=== PATIENT | female | born 1950 | race Caucasian/White ===

== ENCOUNTER → 2017-10-17 15:53 | Outpatient (CLI) | payer MEDICARE, OTHER, SELFPAY ==
[2017-10-17 17:32] LABS: Absolute Lymphocyte Count 3.16 X10^3/ul (0.83-4.51); Absolute Neutrophil Count 3.9 X10^3/uL (2.0-7.7); Basophil# 0.03 X10^3/uL; Basophil% 0.4 % (0-1); Eosinophils% 2.6 % (0-5); Hematocrit 40.7 % (37-47); Hemoglobin 13.4 g/dl (12.0-15.0); Lymphocyte # 3.16 X10^3/ul (4.0); Lymphocyte % 40.5 % (19-41); Mean Corp Hgb Conc 32.9 g/gl (32-36); Mean Corpuscular Hgb 30.2 pg (27.0-32.0); Mean Corpuscular Volume 91.9 fL (81-99); Mean Platelet Vol. 9.1 fl (6.2-12.0); Monocyte# 0.52 X10^3/uL; Monocyte% 6.7 % (0-10); Neutrophil % 49.8 % (47-70); Platelet Count 178 K/mm3 (150-450); RBC Distribution Width CV 13.5 % (11.6-14.6); RBC Distribution Width SD 44.9 fl (35.1-43.9); Red Blood Count 4.43 M/mm3 (4.2-5.4); White Blood Count 7.8 K/mm3 (4.4-11.0)
[2017-10-17 17:36] LABS: POSITIVE COUNT NO; POSITIVE DIFFERENTIAL NO; POSITIVE MORPHOLOGY NO
[2017-10-17 17:53] LABS: Vitamin D,25 Hydroxy 21.9 ng/mL (29.95-100.01)
[2017-10-17 18:00] LABS: ALB/GLOB Ratio 1.1 RATIO (0.9-2.4); AST(SGOT) 20 U/L (15-37); Alanine Aminotransfer ALT/SGPT 29 U/L (13-56); Albumin, Serum 3.9 g/dL (3.2-5.0); Alkaline Phosphatase 86 U/L (45-117); Anion Gap 6 (5-15); BUN 16 mg/dL (7-18); BUN/Creat Ratio 13.8 RATIO (10-20); Calcium,Total 9.6 mg/dL (8.5-10.1); Chloride 106 mmol/L (98-107); Creatinine, Serum 1.16 mg/dL (0.55-1.02); EST Glomerular Filtration Rate 49 mL/min (>60); Est Glom Filt Rate - Afr Amer 60 mL/min (>60); Globulin 3.7 g/dL (2.2-4.2); Glucose 81 mg/dL (74-106); Potassium 4.3 mmol/L (3.5-5.1); Protein, Total 7.6 g/dL (6.4-8.2); Sodium Level 140 mmol/L (136-145); Thyroid Stim Hormone (TSH) 1.06 uIU/mL (0.358-3.74)
== END ==
PROVIDERS: Family Provider Family Medicine Geriatric Medicine; PCP Family Medicine Geriatric Medicine; Visit Provider Family Medicine Geriatric Medicine
DX: E11.9 Type 2 diabetes mellitus without complications (principal); E55.9 Vitamin D deficiency, unspecified; I10 Essential (primary) hypertension
CPT/HCPCS: 36415; 80053; 82306; 84443; 85025

== ENCOUNTER → 2018-01-16 13:04 | Outpatient (CLI) | payer MEDICARE, OTHER, SELFPAY | PROVIDERS: Family Provider Family Medicine Geriatric Medicine; PCP Family Medicine Geriatric Medicine; Visit Provider Family Medicine Geriatric Medicine | DX: R10.9 Unspecified abdominal pain (principal) | CPT/HCPCS: 74019 ==

== ENCOUNTER → 2018-02-01 12:39 | Outpatient (CLI) | payer MEDICARE, OTHER, SELFPAY | PROVIDERS: Family Provider Family Medicine Geriatric Medicine; PCP Family Medicine Geriatric Medicine; Visit Provider Family Medicine Geriatric Medicine | DX: R68.83 Chills (without fever) (principal) | CPT/HCPCS: 87633 ==

== ENCOUNTER → 2018-04-16 13:49 | Outpatient (CLI) | payer MEDICARE, OTHER, SELFPAY ==
[2018-04-15 14:11] VITALS: BMI 30.7
[2018-04-16 17:18] LABS: Absolute Lymphocyte Count 3.35 X10^3/ul (0.83-4.51); Absolute Neutrophil Count 5.8 X10^3/uL (2.0-7.7); Basophil# 0.03 X10^3/uL; Basophil% 0.3 % (0-1); Eosinophil# 0.14 X10^3/uL; Eosinophils% 1.4 % (0-5); Hematocrit 42.7 % (37-47); Hemoglobin 14.1 g/dl (12.0-15.0); Lymphocyte # 3.35 X10^3/ul (4.0); Lymphocyte % 33.5 % (19-41); Mean Corpuscular Hgb 31.5 pg (27.0-32.0); Mean Corpuscular Volume 95.3 fL (81-99); Mean Platelet Vol. 9.4 fl (6.2-12.0); Monocyte# 0.63 X10^3/uL; Monocyte% 6.3 % (0-10); Neutrophil # 5.83 X10^3/uL (2.7-7.7); Neutrophil % 58.2 % (47-70); Platelet Count 220 K/mm3 (150-450); RBC Distribution Width CV 14.7 % (11.6-14.6); RBC Distribution Width SD 49.8 fl (35.1-43.9); Red Blood Count 4.48 M/mm3 (4.2-5.4)
[2018-04-16 17:38] LABS: Vitamin D,25 Hydroxy 23.3 ng/mL (29.95-100.01)
[2018-04-16 17:45] LABS: POSITIVE COUNT NO; POSITIVE DIFFERENTIAL NO; POSITIVE MORPHOLOGY NO
[2018-04-16 17:46] LABS: AST(SGOT) 17 U/L (15-37); Alanine Aminotransfer ALT/SGPT 36 U/L (13-56); Albumin, Serum 3.8 g/dL (3.2-5.0); Alkaline Phosphatase 73 U/L (45-117); Anion Gap 8 (5-15); BUN 26 mg/dL (7-18); BUN/Creat Ratio 19.3 RATIO (10-20); Calcium,Total 9.8 mg/dL (8.5-10.1); Chloride 104 mmol/L (98-107); Creatinine, Serum 1.35 mg/dL (0.55-1.02); EST Glomerular Filtration Rate 41 mL/min (>60); Est Glom Filt Rate - Afr Amer 50 mL/min (>60); Globulin 3.8 g/dL (2.2-4.2); Glucose 132 mg/dL (74-106); Potassium 4.4 mmol/L (3.5-5.1); Protein, Total 7.6 g/dL (6.4-8.2); Sodium Level 141 mmol/L (136-145); Thyroid Stim Hormone (TSH) 1.31 uIU/mL (0.358-3.74)
--- OUTSIDE RECORDS SUMMARY | 2018-06-12 03:11 | XMS RPT_ITS ---
:1950 Author Organization OHIP Support Name Relationship Address Phone R Unavailable Unavailable Unavailable STRETCH, JOVANY Unavailable [address] + [place] [address] TRUMPHOUR, BAKARI Unavailable [address] [place] [address] R Unavailable Unavailable Unavailable STRETCH, JOVANY Unavailable [address] + [place] [address] TRUMPHOUR, BAKARI Unavailable [address] + [address] [place] [address] R Unavailable Unavailable Unavailable STRETCH, JOVANY Unavailable [address] + [place] [address] TRUMPHOUR, BAKARI Unavailable [address] + [address] [place] [address] R Unavailable Unavailable Unavailable STRETCH, JOVANY Unavailable [address] + [place] [address] TRUMPHOUR, BAKARI Unavailable [address] + [address] [place] [address] R Unavailable Unavailable Unavailable STRETCH, JOVANY Unavailable [address] + [place] [address] TRUMPHOUR, BAKARI Unavailable [address] + [address] [place] [address] R Unavailable Unavailable Unavailable STRETCH, JOVANY Unavailable [address] + [place] [address] TRUMPHOUR, BAKARI Unavailable [address] + [address] [place] [address] R Unavailable Unavailable Unavailable STRETCH, JOVANY Unavailable [address] + [place] [address] TRUMPHOUR, BAKARI Unavailable [address] + [address] [place] [address] R Unavailable Unavailable Unavailable STRETCH, JOVANY Unavailable [address] + [place] [address] TRUMPHOUR, BAKARI Unavailable [address] + [address] [place] [address] R Unavailable Unavailable Unavailable STRETCH, JOVANY Unavailable [address] + [place] [address] TRUMPHOUR, BAKARI Unavailable [address] + [address] [place] [address] R Unavailable Unavailable Unavailable STRETCH, JOVANY Unavailable [address] + [place] [address] TRUMPHOUR, BAKARI Unavailable [address] + [address] [place] [address] R Unavailable Unavailable Unavailable STRETCH, JOVANY Unavailable [address] + [place] [address] TRUMPHOUR, BAKARI Unavailable [address] + [address] [place] [address] R Unavailable Unavailable Unavailable STRETCH, JOVANY Unavailable [address] + [place] [address] TRUMPHOUR, BAKARI Unavailable [address] + [address] [place] [address] Care Team Providers Name Role Phone JESS PERDOMO Attending Unavailable JESS PERDOMO Referring Unavailable Ines, Mikhail Chi Attending Unavailable Ines, Mikhail Chi Primary Care Unavailable Ines, Mikhail Chi Attending Unavailable Ines, Mikhail Chi Referring Unavailable Ines, Mikhail Chi Primary Care Unavailable Ines, Mikhail Chi Attending Unavailable Ines, Mikhail Chi Referring Unavailable Ines, Mikhail Chi Primary Care Unavailable DossieJenny D.C. Attending Unavailable Ines, Mikhail Chi Referring Unavailable Ines, Mikhail Chi Primary Care Unavailable DossieJenny D.C. Attending Unavailable Ines, Mikhail Chi Referring Unavailable Ines, Mikhail Chi Primary Care Unavailable DossieJenny D.C. Attending Unavailable Ines, Mikhail Chi Referring Unavailable DossieJenny D.C. Attending Unavailable Ines, Mikhail Chi Referring Unavailable DossieJenny D.C. Attending Unavailable Ines, Mikhail Chi Referring Unavailable Dossie, Jenny LynnC. Attending Unavailable Ines, Mikhail Chi Referring Unavailable DossiJenny gonzalez D.C. Attending Unavailable DossieJenny D.C. Attending Unavailable Ines, Mikhail Chi Attending Unavailable Ines, Mikhail Chi Primary Care Unavailable CONOR, JESS E Attending Unavailable CONOR, JESS E Referring Unavailable CONOR, JESS Attending Unavailable INES, MIKHAIL-CHI Primary Care Unavailable CONOR, JESS Referring Unavailable CONOR, JESS Attending Unavailable CONOR, JESS Referring Unavailable INES, MIKHAIL-CHI Primary Care Unavailable PROBLEMS PROBLEMS DATE TYPE CONDITION / CODE ATTENDING STATUS SOURCE 04/16/2018 Unknown M99.02 - Segmental Dossie, Jenny Active [facility] dysfunction of [facility] thoracic region / Repository M99.02(ICD-10) 04/16/2018 Unknown M99.05 - Segmental Dossie, Jenny Active [facility] dysfunction of Hospital pelvic region / Repository M99.05(ICD-10) 04/16/2018 Unknown M99.03 - Segmental Dossie, Jenny Active 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, Repository lumbar region / M47.816(ICD-10) 02/01/2018 Unknown R68.83 - Chills Ines, Mikhail Chi Active [facility] (without fever) / Community R68.83(ICD-10) Hospital Repository 10/17/2017 Unknown E11.9 - Type 2 Ines, Mikhail Chi Active [facility] diabetes mellitus Community without Hospital complications / Repository E11.9(ICD-10) 10/17/2017 Unknown E55.9 - Vitamin D Ines, Mikhail Chi Active [facility] deficiency, Community unspecified / Hospital E55.9(ICD-10) Repository 10/17/2017 Unknown I10 - Essential Ines, Mikhail Chi Active [facility] (primary) Community hypertension / Hospital I10(ICD-10) Repository 08/14/2017 Active Essential (primary) Lianet PERDOMO hypertension / JESS [facility] Other I10(ICD-10) [place] Repository 08/14/2017 Active Atherosclerotic CONOR, Active [place] heart disease of [facility] Other [place] coronary [place] artery without Repository angina pectoris / I25.10(ICD-10) 08/14/2017 Admitting Unknown / CONOR, Active [facility] UNK(Unknown) [facility] Repository PROCEDURES PROCEDURES No Procedure Records FoundRESULTS RESULTS Observed: 04/16/2018 Status: F Source: [place] CULTURE, URINE 2:50 PM [facility] [place]rine Culture ORGANISM 1: Streptococcus agalactiae (B) [place] Count >100,000 Streptococcus agalactiae (B): REACTION Ampicillin $ <=0.25 S Inducable Clindamycin [place] - Linezolid $$$$ <=2 S Vancomycin $ 0.5 S (NF) indicates non-formulary drug at [facility]. Approval by Infectious Disease Specialist required before non-formulary drugs may be ordered and/or dispensed. * CLSI guidelines does not recommend testing of cephalosporins. This interpretation is deduced from Beta-lactam/penicillin results. Performed By: #### M100.0650 #### [facility] [address] [place], [place], [id number] VITAMIN D,25 HYDROXY Collected: 04/16/2018 Status: F Source: [place] 1:51 PM [facility] TYPE CODE TESTS RESULT OUT OF REFERENCE UNITS RANGE LAB L506.1000 29.95-100.01 ng/mL Low Vitamin D 23.3 25-OH Result Comment: Vitamin D 25(OH) Status Range Deficiency <20 ng/mL (50nmol/L) Insuffciency 20 - 30 ng/mL (50 - 75 nmol/L) Sufficiency 30 - 100 ng/mL (75 - 250 nmol/L) Toxicity >100 ng/mL (>250 nmol/L) Performed By: #### L506.1000 #### [facility] [address] [place], [address] CBC W/DIFF, AUTOMATED Collected: 04/16/2018 Status: F Source: [place] 1:51 PM [facility] TYPE CODE TESTS RESULT OUT OF RANGE REFERENCE UNITS LAB L100.1000 4.4-11.0 K/mm3 Normal WBC 10.0 LAB L100.1200 4.2-5.4 M/mm3 Normal RBC 4.48 LAB L100.1300 12.0-15.0 g/dl Normal HGB 14.1 LAB L100.1400 37-47 % Normal HCT 42.7 LAB L100.1500 81-99 fL Normal MCV 95.3 LAB L100.1600 27.0-32.0 pg Normal MCH 31.5 LAB L100.1700 32-36 g/gl Normal MCHC 33.0 LAB L100.1810 11.6-14.6 % High RDW CV 14.7 LAB L100.1820 35.1-43.9 fl High RDW SD 49.8 LAB L100.1900 150-450 K/mm3 Normal PLT 220 LAB L100.2000 6.2-12.0 fl Normal MPV 9.4 LAB L100.2100 47-70 % Normal NEUT% 58.2 LAB L100.2200 19-41 % Normal LY% 33.5 LAB L100.2300 0-10 % Normal MONO% 6.3 LAB L100.2400 0-5 % Normal EO% 1.4 LAB L100.2500 0-1 % Normal BASO% 0.3 LAB L100.2550 0.0-0.9 % Normal IM GRAN % 0.300 Result Comment: IG% - Immature Granulocytes (promyelocytes, myelocytes and metamyelocytes) > 1% indicates that a LEFT SHIFT is Present. LAB L100.2620 2.0-7.7 X10 3/uL Normal Absolute Neut 5.8 LAB L100.2720 0.83-4.51 X10 3/ul Normal Absolute Lymph 3.35 Performed By: #### L100.0100 #### [facility] [address] [place], [address] COMPREHENSIVE METABOLIC Collected: 04/16/2018 Status: F Source: [facility] 1:51 PM [facility] TYPE CODE TESTS RESULT OUT OF RANGE REFERENCE UNITS LAB L501.0100 74-106 mg/dL High GLU 132 Result Comment: Fasting Glucose result greater than or equal to 126 mg/dL suggests DIABETES MELLITUS per A.D.A. criteria. Please note revised GLUCOSE reference range effective 2017. LAB L501.1000 7-18 mg/dL High BUN 26 LAB L501.1100 0.55-1.02 mg/dL High CREAT,SERUM 1.35 Result Comment: The validity of the calculated GFR AND GFRAA in patients over 70 years has not been determined. Clinical correlation is essential. LAB L501.1110 >60 mL/min Low EST GFR 41 Result Comment: Non- GFR Calc LAB L501.1115 >60 mL/min Low EST GFR - AA 50 Result Comment: GFR Calc LAB L501.1300 10-20 RATIO Normal BUN/CRE 19.3 LAB L501.1500 6.4-8.2 g/dL T Normal PROT 7.6 LAB L501.1800 3.2-5.0 g/dL Normal ALB 3.8 LAB L501.1950 2.2-4.2 g/dL Normal GLOB 3.8 LAB L501.2000 0.9-2.4 RATIO Normal A/G 1.0 LAB L501.2200 8.5-10.1 mg/dL CA Normal 9.8 LAB L501.4100 15-37 U/L Normal AST 17 LAB L501.4305 45-117 U/L Normal ALK P 73 LAB L501.4405 13-56 U/L Normal ALT 36 LAB L501.4600 0.20-1.00 mg/dL T Normal BILI 0.70 LAB L501.5300 136-145 mmol/L NA Normal 141 LAB L501.5600 3.5-5.1 mmol/L K Normal 4.4 LAB L501.5900 98-107 mmol/L CL Normal 104 LAB L501.6100 21.0-32.0 mmol/L Normal CO2 29.0 LAB L501.6200 5-15 Normal GAP 8 Performed By: #### L500.4050, L501.9520 #### [facility] [address] [place], [place], [id number] THYROID STIM HORMONE Collected: 04/16/2018 Status: F Source: [place] ([place]) 1:51 PM [facility] [place] [place] TYPE CODE TESTS RESULT OUT OF RANGE REFERENCE UNITS LAB L501.9520 0.358-3.74 uIU/mL Normal TSH 1.31 Performed By: #### L500.4050, L501.9520 #### [facility] [address] [place], [address] CNOV Observed: 04/16/2018 Status: COMPLETED Source: [place] 11:30 AM [facility] REPOSITORY Office Visit (CAWSTR) GAYLE CHO ([id number]) 1950 F Date Time Provider Department 04/16/18 11:30 AM JESS PERDOMOWSTR During your visit today, we recorded the following information about you: Pulse Blood pressure Weight Height 63/minute 166/75 71.5 kg 1.626 m Jess Perdomo MD 04/16/2018 11:49 AM Signed PERTINENT CARDIAC HISTORY ASHD - s/p PCI 03/01, 10/31 HTN - not taking amlodipine HL DM DC - Not wearing CPAP ADHERENCE TO GUIDELINES CHRISTIANO-I or ARB for HF with prior LVEF<40 (NQF 0081) - N/A ASA or Plavix for ASHD (NQF 0067) - met Beta xochitl for ASHD with prior UT or prior LVEF<40 (NQF 0070) - N/A Beta xochitl for HF with prior LVEF<40 (NQF 0083) - N/A CHRISTIANO-I or ARB for ASHD with DM or prior LVEF<40 (NQF 0066) - met Statin therapy for ASHD or FHL or DM - met BMI documented and plan if >25 (NQF 0421) - lifestyle recommendation form Tobacco use screening and referral (NQF 0028) - lifestyle recommendation form Recommendation for whole food, plant based diet - lifestyle recommendation form CLINICAL IMPRESSION/PLAN: Gayle Michele Cho has been advised to be more attentive to her blood pressure. She is not taking amlodipine as I previously prescribed and I've asked her to do so. Her blood pressure is clearly too high. She also has been advised to use her CPAP as recommended and use nitroglycerin for chest discomfort. She questions whether ginseng would be helpful for her daytime drowsiness. I advised her not to use this as it may elevate her blood pressure further. Recommend that she get on her CPAP for a good 2-3 week trial to see if this helps with her somnolence. I recommend that she be seen again in 8 months. I also recommend that she be more compliant with recommendations if she hopes to avoid morbidity in the future. Written and verbal health teaching given to patient, patient verbalizes understanding and agrees with treatment plan. DIAGNOSIS FOR VISIT: ASHD Hypertension HISTORY OF PRESENT ILLNESS Gayle Cho returns for follow-up of hypertension and coronary disease. She reports that she is having trouble staying awake during the day. She has been having blood pressures over 200 from time to time but does not check her blood pressure very frequently. She has taken no nitroglycerin. She is not using her CPAP. She's had no exertional chest discomfort. She's having intermittent gas discomfort which is relieved by Beano and belching. She's had no edema. She denies syncope, palpitations, TIAs, amaurosis and claudication. ALLERGIES: ALLERGIES Allergen Reactions - Antihistimine Intolerance Heart racing/palpitations - Enalapril Other: See Comments Muscle myalgias - Lopressor [Metoprol* Other: See Comments Muscle myalgias - Penicillins Rash - Synthroid [Levothyr* Other: See Comments Fatigue and jittery CURRENT OUTPATIENT MEDICATIONS: nitroglycerin sublingual (NITROQUICK) 0.4 mg SL tablet Dissolve 1 tablet under the tongue as needed. FOR CHEST PAIN. IF NO RELIEF CALL 911 pravastatin (PRAVACHOL) 40 mg tablet Take 1 tablet by mouth daily at bedtime. losartan (COZAAR) 50 mg tablet Take 1.5 tablets by mouth once daily. CPAP carvedilol (COREG) 12.5 mg tablet Take 1 tablet by mouth twice daily. aspirin, enteric coated (ECOTRIN LOW STRENGTH) 81 mg EC tablet Take 1 tablet by mouth once daily. levothyroxine sodium(LEVOXYL 75 MCG TAB) Take one(1) tablet daily. alprazolam(XANAX 0.5 MG TAB) Take 0.5 tablet three(3) times daily as needed. amLODIPine (NORVASC) 5 mg tablet Take 1 tablet by mouth once daily. PHYSICAL EXAMINATION: VITAL SIGNS: BP 166/75 Pulse 63 Ht 5' 4 (1.63m) Wt 157 lb 9.6 oz (71.5kg) BMI 27.04 kg/(m2). Chest: Clear to auscultation. Trachea is midline. Air entry is equal. Cardiac: Regular rhythm. S1 and S2 are normal. PMI is nondisplaced. There is a soft systolic ejection murmur and a soft S4 gallop. Carotids are brisk without bruits. JVP is less than 10 cm. Abdomen: Soft and nontender. There are no pulsatile masses or bruits. No liver enlargement. Bowel sounds are active. Extremities: Trace edema. Pulses are intact and symmetrical. No recent labs are available. She has an appointment in primary care today and I requested that she send me a copy of any lab studies done Electronically Signed: Jess Perdomo MD April 16, 2018 11:28 AM CC: MD Jess Reyes Chi, MD 04/16/2018 11:28 AM Signed LIFESTYLE CHANGE A healthy lifestyle is the most important component of your overall treatment plan. 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 EAT A WHOLE FOOD, PLANT BASED DIET The nutrition your body gets is more important than the medicine you take. What matters most is the overall way you eat. We encourage you to minimize the use of animal products (which include dairy and all meats except fatty fish) and use whole, unprocessed plant foods to provide your protein, vitamins and other nutrients. We have a lot of information to share with you on this topic. This is not a diet. It is a way of life that you will keep with you. EXERCISE REGULARLY It is not important to spend hours in the gym, lifting weights and perspiring heavily. A total of 2-3 hours per week of aerobic (causing you to be moderately short of breath) exercise is sufficient to improve your health. Talk to us before you begin a new exercise program, if you have heart disease or experience shortness of breath or chest pain. REDUCE STRESS Chronic emotional and physical stress leads to disease. Ways of reducing stress include meditation, visualization, prayer, yoga and other forms of relaxation therapy. Consistency is the rosas. Find a technique that works for you and do it every day. CULTIVATE RELATIONSHIPS Loneliness and isolation have a major negative impact on health. Seek out others who can love, care for and nurture you. Avoid hurtful relationships. MAINTAIN IDEAL BODY WEIGHT The best way to do this is to do all the things above. Our bodies naturally find the right weight if we keep moving and feed ourselves the right food. If your BMI is greater than 25, we strongly recommend a referral to a weight management program. Please speak to us or your family physician about available programs. AVOID NICOTINE IN ALL FORMS This includes all tobacco products, whether chewed, smoked, vaped, or rubbed on the skin. Smoking cessation programs, which can make use of tobacco substitutes, medications to suppress cravings and behavior management, are available. Please contact your family physician about programs in your area. Referring Provider: JESS PERDOMO [[id number]] Allergies As of Date: 04/16/2018 Noted Allergy Reaction ANTIHISTIMINE 01/10/2017 5 - Intolerance Comments: Heart racing/palpitations ENALAPRIL 08/09/2007 14 - Other: See Comments Comments: Muscle myalgias LOPRESSOR (METOPROLOL TARTRATE) 08/09/2007 14 - Other: See Comments Comments: Muscle myalgias PENICILLINS 08/09/2007 2 - Rash SYNTHROID (LEVOTHYROXINE SODIUM) 08/09/2007 14 - Other: See Comments Comments: Fatigue and jittery Date Reviewed: 04/16/2018 Reviewed by: María Santiago MA - Fully Assessed Reason for Visit: Established Patient [175] Primary Visit Diagnosis:ASHD (arteriosclerotic heart disease) [I25.10] Other Visit Diagnosis:Hypertension, essential [I10] Order(s):nitroglycerin sublingual (NITROQUICK) 0.4 mg SL tabletDissolve 1 tablet under the tongue as needed. FOR CHEST PAIN. IF NO RELIEF CALL 911Disp: 25 tabletRfl: 6 Prescriptions as of 04/16/2018 Sig: NITROGLYCERIN 0.4 MG SUBLINGU* Dissolve 1 tablet under the t* PRAVASTATIN 40 MG TABLET Take 1 tablet by mouth daily * LOSARTAN 50 MG TABLET Take 1.5 tablets by mouth onc* CPAP CARVEDILOL 12.5 MG TABLET Take 1 tablet by mouth twice * ASPIRIN 81 MG TABLET,DELAYED * Take 1 tablet by mouth once d* LEVOXYL 75 MCG TABLET Take one(1) tablet daily. XANAX 0.5 MG TABLET Take 0.5 tablet three(3) dee* AMLODIPINE 5 MG TABLET Take 1 tablet by mouth once d* Patient not taking: Reported on 04/16/2018 Problem List As Of Date 04/16/2018 Noted Resolved PAIN ABDOMEN( Right Lower Quadrant) [R10.31] INVALID FOR* Non-ST elevation myocardial infarction (NSTEMI)*INVALID FOR* Priority: Moderate Class: Acute More... Hypertension [I10] INVALID FOR* Priority: Mild More... Hypothyroidism [E03.9] INVALID FOR* More... Hyperlipidemia [E78.5] INVALID FOR* Class: Chronic More... Diabetes mellitus (HCC) [E11.9] INVALID FOR* More... Coronary artery disease [I25.10] INVALID FOR* S/P coronary artery stent placement [Z95.5] INVALID FOR* Chest pain [R07.9] INVALID FOR* Priority: B More... SUMMARY INVALID FOR* Priority: A More... Hypertensive urgency [I16.0] INVALID FOR* Priority: C More... Left arm pain [M79.602] INVALID FOR* More... Other instructions from your clinician: LIFESTYLE CHANGE A healthy lifestyle is the most important component of your overall treatment plan. Please give serious thought to the following areas and commit to making custodial changes. EAT A WHOLE FOOD, PLANT BASED DIET The nutrition your body gets is more important than the medicine you take. What matters most is the overall way you eat. We encourage you to minimize the use of animal products (which include dairy and all meats except fatty fish) and use whole, unprocessed plant foods to provide your protein, vitamins and other nutrients. We have a lot of information to share with you on this topic. This is not a diet. It is a way of life that you will keep with you. EXERCISE REGULARLY It is not important to spend hours in the gym, lifting weights and perspiring heavily. A total of 2-3 hours per week of aerobic (causing you to be moderately short of breath) exercise is sufficient to improve your health. Talk to us before you begin a new exercise program, if you have heart disease or experience shortness of breath or chest pain. REDUCE STRESS Chronic emotional and physical stress leads to disease. Ways of reducing stress include meditation, visualization, prayer, yoga and other forms of relaxation therapy. Consistency is the rosas. Find a technique that works for you and do it every day. CULTIVATE RELATIONSHIPS Loneliness and isolation have a major negative impact on health. Seek out others who can love, care for and nurture you. Avoid hurtful relationships. MAINTAIN IDEAL BODY WEIGHT The best way to do this is to do all the things above. Our bodies naturally find the right weight if we keep moving and feed ourselves the right food. If your BMI is greater than 25, we strongly recommend a referral to a weight management program. Please speak to us or your family physician about available programs. AVOID NICOTINE IN ALL FORMS This includes all tobacco products, whether chewed, smoked, vaped, or rubbed on the skin. Smoking cessation programs, which can make use of tobacco substitutes, medications to suppress cravings and behavior management, are available. Please contact your family physician about programs in your area. Prescriptions ordered this encounter Disp Refills Start End NITROGLYCERIN 0.4 MG SUBLINGUAL TABL* 25 t* 6 04/16/2018 Route: SUBLINGUAL Sig: Dissolve 1 tablet under the tongue as needed. FOR CHEST PAIN. IF NO RELIEF CALL 911 Medications Discontinued During This Encounter nitroglycerin sublingual (NITROQUICK* 25 t* 6 09/28/2016 04/16/2018 Route: SUBLINGUAL Sig: Dissolve 1 tablet under the tongue as needed. FOR CHEST PAIN. IF NO RELIEF CALL 911 Disc: Reason for discontinue is not on file. Follow-up and Disposition History Recorded Encounter Status:Closed by JESS PERDOMO MD on 04/16/18 CHIROPRACTIC REPORT Observed: 04/16/2018 Status: F Source: [place] 11:29 AM [facility] [address] [place] [address] OFFICE VISIT Date of Service: 04/15/18 MR#: [id number] Acct: [id number] Name: GAYLE CHO Rep #: [id number] : 1950 Provider: Jenny Ross D.C. Age/Sex: 68/F Location: [facility] [place] Status: Signed Intake Vital Signs04/15/18 Height 5 ft 04/15/18 Weight: 157 lb 04/15/18 Body Mass Index (BMI) 30.7 Intake Visit Reasons: back pain Chief Complaint: Neck and mid back pain Is patient in pain?: Yes Allergies ANESTETICS Allergy (Uncoded 10/30/13 12:54) Swelling Medications Aspirin E.C. [Ecotrin] 81 mg PO DAILY@0800 08/03/16 [History Confirmed 08/03/16] Azithromycin 250 mg PO DAILY #4 tab 08/03/16 [Rx] Carvedilol [Coreg] 12.5 mg PO BID 08/03/16 [History Confirmed 08/03/16] Levothyroxine Sodium 75 mcg PO DAILY 08/03/16 [History Confirmed 08/03/16] Losartan Potassium [Cozaar] 50 mg PO DAILY 08/03/16 [History Confirmed 08/03/16] Pravastatin Sodium 40 mg PO QHS 08/03/16 [History Confirmed 08/03/16] alprazolam 0.5 mg tablet 0.5 mg PO BID 02/04/18 [History Confirmed 02/04/18] cholecalciferol (vitamin D3) 2,000 unit capsule 2,000 unit PO DAILY 02/04/18 [History Confirmed 02/04/18] [facility] Medical History Facet arthropathy, lumbar (Chronic) Acute biliary pancreatitis (Acute) Arthritis (Acute) Diabetes (Acute) GERD (gastroesophageal reflux disease) (Acute) Heart murmur (Acute) High cholesterol (Acute) High triglycerides (Acute) Osteoarthritis (Acute) Parathyroid abnormality (Acute) Hypertension (Chronic) Social History Smoking Status: Current some day smoker alcohol intake: never substance use type: does not use what type of physical activity do you participate in: none HPI back pain : Chief Complaint: R sided low back pain Visit Number: 6 Details: GAYLE CHO is a 68 year old F who presents with increased R sided low back pain. She states that over the past three days her pain has slightly increased, leaving her with a sore ache. At times states that her hip and R leg feels as if her leg is going to give out. Today rates her pain a 4/10, rotation, bending, and twisting causes increased pain. denies any numbness, tingling, or radiculopathy. The patient also complains of neck stiffness, although stretching and adjustment does cause decreased pain. Location: neck and low back Duration: constant Aggravating or associated factors: bending, lifting, twisting Relieving factors: chiro Pain Quality: aching, dull, cramping Exam Musc General: Yes normal posture, normal gait, joint tenderness (T5,L3,L4,L5, RIL) and decreased ROM Thoracic/Lumbar Spine: thoracic and lumbar spine normal to inspection, pain with thoraco-lumbar ROM, thoraco-lumbar ROM limited, thoraco-lumbar spasm on the right greater than left (QL, rhomboids), straight leg raise negative bilaterally, paraspinal tenderness on the right greater than left (upper thoracic, lower lumbar), Lasegue's sign positive Sacroiliac joints: on the right Office Procedures Chiropractic Treatments Procedures Manipulation: 3-4 regions (T5,L3,L5, RIL) Assessment AND Plan 1. Segmental and somatic dysfunction of lumbar region M99.03 Orders Orders: 2. Segmental and somatic dysfunction of pelvic region M99.05 Orders Orders: 3. Segmental and somatic dysfunction of thoracic region M99.02 Orders Orders: 4. Facet arthropathy, lumbar M47.816 Plan Detail Goals Decrease pain Decrease spasm Barriers Facet arthropathy Follow Up 1 x week Coding Level of Care Code No Charge Diagnoses Segmental and somatic dysfunction of lumbar region M99.03 Segmental and somatic dysfunction of pelvic region M99.05 Segmental and somatic dysfunction of thoracic region M99.02 Facet arthropathy, lumbar M47.816 Additional Codes Procedures - Manipulation: 3-4 regions (48619) 04/16/18 1129 <Electronically signed by Jenny Ross D.C.> Date Jenny Ross D.C. Cosigner Signature: Date (if applicable) CC: PROGRESS Observed: 04/16/2018 Status: COMPLETED Source: [place] 11:28 AM [facility] O ID: [id number] Author: Jess Perdomo Service: (none) Author Type: Physician Type: Progress Notes Filed: 04/16/2018 11:49 AM Note Text: PERTINENT CARDIAC HISTORY ASHD - s/p PCI 03/01, 10/31 HTN - not taking amlodipine HL DM DC - Not wearing CPAP ADHERENCE TO GUIDELINES CHRISTIANO-I or ARB for HF with prior LVEF<40 (NQF 0081) - N/A ASA or Plavix for ASHD (NQF 0067) - met Beta xochitl for ASHD with prior UT or prior LVEF<40 (NQF 0070) - N/A Beta xochitl for HF with prior LVEF<40 (NQF 0083) - N/A CHRISTIANO-I or ARB for ASHD with DM or prior LVEF<40 (NQF 0066) - met Statin therapy for ASHD or FHL or DM - met BMI documented and plan if >25 (NQF 0421) - lifestyle recommendation form Tobacco use screening and referral (NQF 0028) - lifestyle recommendation form Recommendation for whole food, plant based diet - lifestyle recommendation form CLINICAL IMPRESSION/PLAN: Gayle Cho has been advised to be more attentive to her blood pressure. She is not taking amlodipine as I previously prescribed and I've asked her to do so. Her blood pressure is clearly too high. She also has been advised to use her CPAP as recommended and use nitroglycerin for chest discomfort. She questions whether ginseng would be helpful for her daytime drowsiness. I advised her not to use this as it may elevate her blood pressure further. Recommend that she get on her CPAP for a good 2-3 week trial to see if this helps with her somnolence. I recommend that she be seen again in 8 months. I also recommend that she be more compliant with recommendations if she hopes to avoid morbidity in the future. Written and verbal health teaching given to patient, patient verbalizes understanding and agrees with treatment plan. DIAGNOSIS FOR VISIT: ASHD Hypertension HISTORY OF PRESENT ILLNESS Gayle Cho returns for follow-up of hypertension and coronary disease. She reports that she is having trouble staying awake during the day. She has been having blood pressures over 200 from time to time but does not check her blood pressure very frequently. She has taken no nitroglycerin. She is not using her CPAP. She's had no exertional chest discomfort. She's having intermittent gas discomfort which is relieved by Beano and belching. She's had no edema. She denies syncope, palpitations, TIAs, amaurosis and claudication. ALLERGIES: ALLERGIES Allergen Reactions - Antihistimine Intolerance Heart racing/palpitations - Enalapril Other: See Comments Muscle myalgias - Lopressor [Metoprol* Other: See Comments Muscle myalgias - Penicillins Rash - Synthroid [Levothyr* Other: See Comments Fatigue and jittery CURRENT OUTPATIENT MEDICATIONS: nitroglycerin sublingual (NITROQUICK) 0.4 mg SL tablet Dissolve 1 tablet under the tongue as needed. FOR CHEST PAIN. IF NO RELIEF CALL 911 pravastatin (PRAVACHOL) 40 mg tablet Take 1 tablet by mouth daily at bedtime. losartan (COZAAR) 50 mg tablet Take 1.5 tablets by mouth once daily. CPAP carvedilol (COREG) 12.5 mg tablet Take 1 tablet by mouth twice daily. aspirin, enteric coated (ECOTRIN LOW STRENGTH) 81 mg EC tablet Take 1 tablet by mouth once daily. levothyroxine sodium(LEVOXYL 75 MCG TAB) Take one(1) tablet daily. alprazolam(XANAX 0.5 MG TAB) Take 0.5 tablet three(3) times daily as needed. amLODIPine (NORVASC) 5 mg tablet Take 1 tablet by mouth once daily. PHYSICAL EXAMINATION: VITAL SIGNS: BP 166/75 Pulse 63 Ht 5' 4 (1.63m) Wt 157 lb 9.6 oz (71.5kg) BMI 27.04 kg/(m2). Chest: Clear to auscultation. Trachea is midline. Air entry is equal. Cardiac: Regular rhythm. S1 and S2 are normal. PMI is nondisplaced. There is a soft systolic ejection murmur and a soft S4 gallop. Carotids are brisk without bruits. JVP is less than 10 cm. Abdomen: Soft and nontender. There are no pulsatile masses or bruits. No liver enlargement. Bowel sounds are active. Extremities: Trace edema. Pulses are intact and symmetrical. No recent labs are available. She has an appointment in primary care today and I requested that she send me a copy of any lab studies done Electronically Signed: Jess Perdomo MD April 16, 2018 11:28 AM CC: Mikhail Chacon MD CHIROPRACTIC REPORT Observed: 04/09/2018 Status: F Source: [place] 3:35 PM [facility] [address] [place] [address] OFFICE VISIT Date of Service: 04/08/18 MR#: [id number] Acct: [id number] Name: GAYLE CHO Rep #: [id number] : 1950 Provider: Jenny Ross D.C. Age/Sex: 68/F Location: [facility] [place] Status: Signed Intake Vital Signs04/08/18 Height 5 ft 04/08/18 Weight: 157 lb 04/08/18 Body Mass Index (BMI) 30.7 Intake Visit Reasons: back pain Chief Complaint: Neck and mid back pain Accompanied by: Is patient in pain?: Yes Allergies ANESTETICS Allergy (Uncoded 10/30/13 12:54) Swelling Medications Aspirin E.C. [Ecotrin] 81 mg PO DAILY@0800 08/03/16 [History Confirmed 08/03/16] Azithromycin 250 mg PO DAILY #4 tab 08/03/16 [Rx] Carvedilol [Coreg] 12.5 mg PO BID 08/03/16 [History Confirmed 08/03/16] Levothyroxine Sodium 75 mcg PO DAILY 08/03/16 [History Confirmed 08/03/16] Losartan Potassium [Cozaar] 50 mg PO DAILY 08/03/16 [History Confirmed 08/03/16] Pravastatin Sodium 40 mg PO QHS 08/03/16 [History Confirmed 08/03/16] alprazolam 0.5 mg tablet 0.5 mg PO BID 02/04/18 [History Confirmed 02/04/18] cholecalciferol (vitamin D3) 2,000 unit capsule 2,000 unit PO DAILY 02/04/18 [History Confirmed 02/04/18] [facility] Medical History Facet arthropathy, lumbar (Chronic) Acute biliary pancreatitis (Acute) Arthritis (Acute) Diabetes (Acute) GERD (gastroesophageal reflux disease) (Acute) Heart murmur (Acute) High cholesterol (Acute) High triglycerides (Acute) Osteoarthritis (Acute) Parathyroid abnormality (Acute) Hypertension (Chronic) Social History Smoking Status: Current some day smoker alcohol intake: never substance use type: does not use what type of physical activity do you participate in: none HPI back pain : Chief Complaint: low back pain Visit Number: 5 Details: GAYLE CHO is a 68 year old F who presents with low back pain. She states that over the weekend her pain has increased, leaving her with a tight ache banding across the low back. Walking, standing, bending, and lifting causes increased pain. Today rates her pain a 4/10, and describes it as a deep ache banding across the low back. denies any numbness, tingling, or radiculopathy. Location: low back Duration: constant Aggravating or associated factors: standing, bending, and lifting Relieving factors: chiro Pain Quality: aching, dull, cramping Exam Musc General: Yes normal posture, normal gait, joint tenderness (T5,L3,L5, RIL) and decreased ROM Thoracic/Lumbar Spine: thoracic and lumbar spine normal to inspection, pain with thoraco-lumbar ROM, thoraco-lumbar ROM limited, thoraco-lumbar spasm, straight leg raise negative bilaterally, paraspinal tenderness, Lasegue's sign positive Sacroiliac joints: on the right Office Procedures Chiropractic Treatments Procedures Manipulation: 3-4 regions (T5,L3,L5, RIL) Assessment AND Plan 1. Segmental and somatic dysfunction of lumbar region M99.03 Orders Orders: 2. Segmental and somatic dysfunction of pelvic region M99.05 Orders Orders: 3. Segmental and somatic dysfunction of thoracic region M99.02 Orders Orders: 4. Facet arthropathy, lumbar M47.816 Plan Detail Goals Decrease pain Decrease spasm Barriers Facet arthropathy Follow Up 1 x week Coding Level of Care Code No Charge Diagnoses Segmental and somatic dysfunction of lumbar region M99.03 Segmental and somatic dysfunction of pelvic region M99.05 Segmental and somatic dysfunction of thoracic region M99.02 Facet arthropathy, lumbar M47.816 Additional Codes Procedures - Manipulation: 3-4 regions (85141) 04/09/18 2757 <Electronically signed by Jenny Ross D.C.> Date Jenny Ross D.C. Cosigner Signature: Date (if applicable) CC: CHIROPRACTIC REPORT Observed: 04/04/2018 Status: F Source: [place] 12:58 PM [facility] [place] [address] [place] [address] OFFICE VISIT Date of Service: 04/04/18 MR#: [id number] Acct: [id number] Name: GAYLE CHO Rep #: [id number] : 1950 Provider: Jenny Ross D.C. Age/Sex: 68/F Location: [facility] [place] Status: Signed Intake Vital Signs04/04/18 Height 5 ft 04/04/18 Weight: 157 lb 04/04/18 Body Mass Index (BMI) 30.7 Intake Visit Reasons: back pain Chief Complaint: neck and low back pain Accompanied by: Is patient in pain?: Yes Allergies ANESTETICS Allergy (Uncoded 10/30/13 12:54) Swelling Medications Aspirin E.C. [Ecotrin] 81 mg PO DAILY@0800 08/03/16 [History Confirmed 08/03/16] Azithromycin 250 mg PO DAILY #4 tab 08/03/16 [Rx] Carvedilol [Coreg] 12.5 mg PO BID 08/03/16 [History Confirmed 08/03/16] Levothyroxine Sodium 75 mcg PO DAILY 08/03/16 [History Confirmed 08/03/16] Losartan Potassium [Cozaar] 50 mg PO DAILY 08/03/16 [History Confirmed 08/03/16] Pravastatin Sodium 40 mg PO QHS 08/03/16 [History Confirmed 08/03/16] alprazolam 0.5 mg tablet 0.5 mg PO BID 02/04/18 [History Confirmed 02/04/18] cholecalciferol (vitamin D3) 2,000 unit capsule 2,000 unit PO DAILY 02/04/18 [History Confirmed 02/04/18] [facility] Medical History Facet arthropathy, lumbar (Chronic) Acute biliary pancreatitis (Acute) Arthritis (Acute) Diabetes (Acute) GERD (gastroesophageal reflux disease) (Acute) Heart murmur (Acute) High cholesterol (Acute) High triglycerides (Acute) Osteoarthritis (Acute) Parathyroid abnormality (Acute) Hypertension (Chronic) Social History Smoking Status: Current some day smoker alcohol intake: never substance use type: does not use what type of physical activity do you participate in: none HPI back pain : Chief Complaint: neck and low back pain Visit Number: 4 Details: GAYLE CHO is a 68 year old F who presents with increased low back pain. states that her pain increased after decorating and cleaning her house. Today rates her pain a 4/10 and describes it as a tight and sharp ache that bands across the low back. Walking, bending, lifting, and twisting cause increased pain. denies any numbness, tingling, or radiculopathy. Location: low back pain Duration: constant Aggravating or associated factors: bending, lifting, twisting Relieving factors: chiro Pain Quality: aching, dull, cramping Exam Musc General: Yes normal posture, normal gait, joint tenderness (T5,L3,L5, RIL) and decreased ROM Thoracic/Lumbar Spine: thoracic and lumbar spine normal to inspection, pain with thoraco-lumbar ROM with forward flexion, with rotation to the left, with rotation to the right and other, thoraco-lumbar ROM limited with forward flexion, with rotation to the left and with rotation to the right, thoraco-lumbar spasm bilaterally in the lower lumbar, in the mid lumbar, in the mid thoracic and in the upper thoracic, straight leg raise negative bilaterally, paraspinal tenderness bilaterally in the lower lumbar and in the mid lumbar, Lasegue's sign positive bilaterally Sacroiliac joints: on the right Office Procedures Chiropractic Treatments Procedures Manipulation: 3-4 regions (T5,L3,L5, RIL) Assessment AND Plan 1. Segmental and somatic dysfunction of lumbar region M99.03 Orders Orders: 2. Segmental and somatic dysfunction of pelvic region M99.05 Orders Orders: 3. Segmental and somatic dysfunction of thoracic region M99.02 Orders Orders: 4. Facet arthropathy, lumbar M47.816 Orders Orders: Plan Detail Goals Decrease pain Decrease spasm Barriers Facet arthropathy Follow Up 1 Week Coding Level of Care Code No Charge Diagnoses Segmental and somatic dysfunction of lumbar region M99.03 Segmental and somatic dysfunction of pelvic region M99.05 Segmental and somatic dysfunction of thoracic region M99.02 Facet arthropathy, lumbar M47.816 Additional Codes Procedures - Manipulation: 3-4 regions (71034) 04/04/18 1258 <Electronically signed by Jenny Ross D.C.> Date Jenny Ross D.C. Cosigner Signature: Date (if applicable) CC: CHIROPRACTIC REPORT Observed: 03/18/2018 Status: F Source: [place] 3:28 PM [facility] [place] [address] [place] [address] OFFICE VISIT Date of Service: 03/12/18 MR#: [id number] Acct: [id number] Name: GAYLE CHO Michele Rep #: [id number] : 1950 Provider: Jenny Ross D.C. Age/Sex: 67/F Location: [facility] [place] Status: Signed Intake Vital Signs03/12/18 Height 5 ft 03/12/18 Weight: 157 lb 03/12/18 Body Mass Index (BMI) 30.7 Intake Visit Reasons: neck pain Chief Complaint: Neck and mid back pain Accompanied by: Is patient in pain?: Yes Allergies ANESTETICS Allergy (Uncoded 10/30/13 12:54) Swelling Medications Aspirin E.C. [Ecotrin] 81 mg PO DAILY@0800 08/03/16 [History Confirmed 08/03/16] Azithromycin 250 mg PO DAILY #4 tab 08/03/16 [Rx] Carvedilol [Coreg] 12.5 mg PO BID 08/03/16 [History Confirmed 08/03/16] Levothyroxine Sodium 75 mcg PO DAILY 08/03/16 [History Confirmed 08/03/16] Losartan Potassium [Cozaar] 50 mg PO DAILY 08/03/16 [History Confirmed 08/03/16] Pravastatin Sodium 40 mg PO QHS 08/03/16 [History Confirmed 08/03/16] alprazolam 0.5 mg tablet 0.5 mg PO BID 02/04/18 [History Confirmed 02/04/18] cholecalciferol (vitamin D3) 2,000 unit capsule 2,000 unit PO DAILY 02/04/18 [History Confirmed 02/04/18] [facility] Medical History Facet arthropathy, lumbar (Chronic) Acute biliary pancreatitis (Acute) Arthritis (Acute) Diabetes (Acute) GERD (gastroesophageal reflux disease) (Acute) Heart murmur (Acute) High cholesterol (Acute) High triglycerides (Acute) Osteoarthritis (Acute) Parathyroid abnormality (Acute) Hypertension (Chronic) Social History Smoking Status: Current some day smoker alcohol intake: never substance use type: does not use what type of physical activity do you participate in: none HPI neck pain: Chief Complaint: neck and low back pain Visit Number: 4 Details: GAYLE CHO is a 67 year old F who presents with decreased neck and low back pain. Gayle states that her neck pain and headaches have decreased, leaving her with a tight ache that bands across the neck. also states that her low back pain has decreased, although with frequent walking and house work the pain will increase leaving her with a sharp ache. Today rates her pain a 3/10 and describes it as a sore ache that bands across the neck, she denies any numbness, tingling, or radiculopathy. Location: neck and low back pain Duration: intermittent Aggravating or associated factors: frequent bending and house work Relieving factors: chiro Pain Quality: aching, dull, cramping, sharp Exam Musc General: Yes normal posture, normal gait, joint tenderness (T5,L3,L5, RIL) and decreased ROM Thoracic/Lumbar Spine: thoracic and lumbar spine normal to inspection, pain with thoraco-lumbar ROM, thoraco-lumbar ROM limited, thoraco-lumbar spasm, straight leg raise negative bilaterally, paraspinal tenderness, Lasegue's sign negative Sacroiliac joints: on the right Office Procedures Chiropractic Treatments Procedures Manipulation: 3-4 regions (T5,L3,L5, RIL) Assessment AND Plan 1. Segmental and somatic dysfunction of lumbar region M99.03 Orders Orders: 2. Segmental and somatic dysfunction of pelvic region M99.05 Orders Orders: 3. Segmental and somatic dysfunction of thoracic region M99.02 Orders Orders: Plan Detail Goals Decrease pain Decrease spasm Barriers Facet arthropathy Follow Up 2 x week Coding Level of Care Code No Charge Diagnoses Segmental and somatic dysfunction of lumbar region M99.03 Segmental and somatic dysfunction of pelvic region M99.05 Segmental and somatic dysfunction of thoracic region M99.02 Additional Codes Procedures - Manipulation: 3-4 regions (26311) 03/18/18 1528 <Electronically signed by Jenny Ross D.C.> Date Jenny Ross D.C. Cosigner Signature: Date (if applicable) CC: CHIROPRACTIC REPORT Observed: 02/26/2018 Status: F Source: [place] 8:52 AM [facility] [address] [place] [address] OFFICE VISIT Date of Service: 02/25/18 MR#: [id number] Acct: [id number] Name: GAYLE CHO Rep #: [id number] : 1950 Provider: Jenny Ross D.C. Age/Sex: 67/F Location: [facility] [place] Status: Signed Intake Vital Signs02/25/18 Height 5 ft 02/25/18 Weight: 157 lb 02/25/18 Body Mass Index (BMI) 30.7 Intake Visit Reasons: neck pain Is patient in pain?: Yes Allergies ANESTETICS Allergy (Uncoded 10/30/13 12:54) Swelling Medications Aspirin E.C. [Ecotrin] 81 mg PO DAILY@0800 08/03/16 [History Confirmed 08/03/16] Azithromycin 250 mg PO DAILY #4 tab 08/03/16 [Rx] Carvedilol [Coreg] 12.5 mg PO BID 08/03/16 [History Confirmed 03/16/17] Levothyroxine Sodium 75 mcg PO DAILY 08/03/16 [History Confirmed 08/03/16] Losartan Potassium [Cozaar] 50 mg PO DAILY 08/03/16 [History Confirmed 08/03/16] Pravastatin Sodium 40 mg PO QHS 08/03/16 [History Confirmed 08/03/16] alprazolam 0.5 mg tablet 0.5 mg PO BID 02/04/18 [History Confirmed 02/04/18] cholecalciferol (vitamin D3) 2,000 unit capsule 2,000 unit PO DAILY 02/04/18 [History Confirmed 02/04/18] [facility] Medical History Facet arthropathy, lumbar (Chronic) Acute biliary pancreatitis (Acute) Arthritis (Acute) Diabetes (Acute) GERD (gastroesophageal reflux disease) (Acute) Heart murmur (Acute) High cholesterol (Acute) High triglycerides (Acute) Osteoarthritis (Acute) Parathyroid abnormality (Acute) Hypertension (Chronic) Social History Smoking Status: Current some day smoker alcohol intake: never substance use type: does not use what type of physical activity do you participate in: none HPI neck pain : Chief Complaint: Neck and mid back pain Visit Number: 3 Details: GAYLE CHO is a 67 year old F who presents with increased mid back and neck pain. She states that after her last treatment she began experiencing pain banding across the thoracic area, rating her pain a 4/10. She describes the pain as a tight ache that bands across the rib cage, that can be spastic. When she has a coughing fit the pain increases. Her low back pain is improving. Gayle denies any numbness, tingling, or radiculopathy. Location: mid/low back Duration: constant Aggravating or associated factors: rotation, bending, lifting Relieving factors: chiro Pain Quality: aching, dull, cramping, sharp, radiating Exam Musc General: Yes normal posture, normal gait, joint tenderness (T5,T6, L3-L5, R SI) and decreased ROM Thoracic/Lumbar Spine: thoracic and lumbar spine normal to inspection, pain with thoraco-lumbar ROM, thoraco-lumbar ROM limited, thoraco-lumbar spasm bilaterally in the mid thoracic and in the upper thoracic, straight leg raise negative bilaterally, paraspinal tenderness bilaterally in the mid thoracic, in the upper thoracic and in the lower lumbar (slightly improved), Lasegue's sign negative Sacroiliac joints: on the right Office Procedures Chiropractic Treatments Procedures Manipulation: 3-4 regions (T5, L3,L5, RIL) Assessment AND Plan 1. Facet arthropathy, lumbar M47.816 2. Segmental and somatic dysfunction of lumbar region M99.03 Orders Orders: 3. Segmental and somatic dysfunction of pelvic region M99.05 Orders Orders: 4. Segmental and somatic dysfunction of thoracic region M99.02 Orders Orders: Plan Detail Additional Comments Recommend moist heat around mid thoracic area to address spasms. Follow up with PCP due to persistent cough. Goals Decrease pain Decrease spasm Barriers Facet arthropathy Follow Up 2 x week Coding Level of Care Code No Charge Diagnoses Facet arthropathy, lumbar M47.816 Segmental and somatic dysfunction of lumbar region M99.03 Segmental and somatic dysfunction of pelvic region M99.05 Segmental and somatic dysfunction of thoracic region M99.02 Additional Codes Procedures - Manipulation: 3-4 regions (20390) 02/26/18 0852 <Electronically signed by Jenny Ross D.C.> Date Jenny Ross D.C. Cosigner Signature: Date (if applicable) CC: CHIROPRACTIC REPORT Observed: 02/14/2018 Status: F Source: [place] 2:14 PM [facility] [address] [place] [id number] OFFICE VISIT Date of Service: 02/14/18 MR#: [id number] Acct: [id number] Name: GAYLE CHO Rep #: [id number] : 1950 Provider: Jenny Ross D.C. Age/Sex: 67/F Location: [facility] [place] Status: Signed Intake Vital Signs02/14/18 Height 5 ft 02/14/18 Weight: 157 lb 02/14/18 Body Mass Index (BMI) 30.7 Intake Visit Reasons: back pain Chief Complaint: Low back pain Accompanied by: Is patient in pain?: Yes Allergies ANESTETICS Allergy (Uncoded 10/30/13 12:54) Swelling Medications Aspirin E.C. [Ecotrin] 81 mg PO DAILY@0800 08/03/16 [History Confirmed 08/03/16] Azithromycin 250 mg PO DAILY #4 tab 08/03/16 [Rx] Carvedilol [Coreg] 12.5 mg PO BID 08/03/16 [History Confirmed 08/03/16] Levothyroxine Sodium 75 mcg PO DAILY 08/03/16 [History Confirmed 08/03/16] Losartan Potassium [Cozaar] 50 mg PO DAILY 08/03/16 [History Confirmed 08/03/16] Pravastatin Sodium 40 mg PO QHS 08/03/16 [History Confirmed 08/03/16] alprazolam 0.5 mg tablet 0.5 mg PO BID 02/04/18 [History Confirmed 02/04/18] cholecalciferol (vitamin D3) 2,000 unit capsule 2,000 unit PO DAILY 02/04/18 [History Confirmed 02/04/18] [facility] Medical History Facet arthropathy, lumbar (Chronic) Acute biliary pancreatitis (Acute) Arthritis (Acute) Diabetes (Acute) GERD (gastroesophageal reflux disease) (Acute) Heart murmur (Acute) High cholesterol (Acute) High triglycerides (Acute) Osteoarthritis (Acute) Parathyroid abnormality (Acute) Hypertension (Chronic) Social History Smoking Status: Current some day smoker alcohol intake: never substance use type: does not use what type of physical activity do you participate in: none HPI back pain: Chief Complaint: mid and low back pain Visit Number: 2 Details: GAYLE CHO is a 67 year old F who presents with decreased low back pain. She states that after her last treatment her pain did slightly decrease, although she was sore. Today Gayle rates her pain a 4/10 and describes it as a tight ache that bands across the low back. Bending, lifting, and rotation cause increased pain. The patient also complains of upper back stiffness, she denies any numbness, tingling, or radiculopathy. Location: upper and low back pain Duration: constant Aggravating or associated factors: bending, lifting and twisting Relieving factors: chiro Pain Quality: aching, dull, cramping Exam Musc General: Yes normal posture, normal gait, joint tenderness (T5,T6, L3-L5, R SI) and decreased ROM Thoracic/Lumbar Spine: thoracic and lumbar spine normal to inspection, pain with thoraco-lumbar ROM, thoraco-lumbar ROM limited, thoraco-lumbar spasm bilaterally in the mid thoracic, in the lower lumbar and in the mid lumbar, straight leg raise negative bilaterally, paraspinal tenderness bilaterally, Lasegue's sign negative Sacroiliac joints: on the right Office Procedures Chiropractic Treatments Procedures Manipulation: 3-4 regions (T5, T10, L3,L5, RIL) Assessment AND Plan 1. Segmental and somatic dysfunction of lumbar region M99.03 Orders Orders: 2. Segmental and somatic dysfunction of pelvic region M99.05 Orders Orders: 3. Segmental and somatic dysfunction of thoracic region M99.02 Orders Orders: Plan Detail Goals Decrease pain Decrease spasm Barriers Facet arthropathy Follow Up 1 x week Coding Level of Care Code No Charge Diagnoses Segmental and somatic dysfunction of lumbar region M99.03 Segmental and somatic dysfunction of pelvic region M99.05 Segmental and somatic dysfunction of thoracic region M99.02 Additional Codes Procedures - Manipulation: 3-4 regions (58044) 02/14/18 5304 <Electronically signed by Jenny Ross D.C.> Date Jenny Ross D.C. Cosigner Signature: Date (if applicable) CC: CHIROPRACTIC REPORT Observed: 02/11/2018 Status: F Source: PATTI 1:15 PM [facility] [address] [place] [id number] OFFICE VISIT Date of Service: 02/11/18 MR#: [id number] Acct: [id number] Name: GAYLE CHO Rep #: [id number] : 1950 Provider: Jenny Ross D.C. Age/Sex: 67/F Location: [facility] [place] Status: Signed Intake Vital Signs02/11/18 Height 5 ft 02/11/18 Weight: 157 lb 02/11/18 Body Mass Index (BMI) 30.7 Intake Visit Reasons: back pain Is patient in pain?: Yes Allergies ANESTETICS Allergy (Uncoded 10/30/13 12:54) Swelling Medications Aspirin E.C. [Ecotrin] 81 mg PO DAILY@0800 08/03/16 [History Confirmed 08/03/16] Azithromycin 250 mg PO DAILY #4 tab 08/03/16 [Rx] Carvedilol [Coreg] 12.5 mg PO BID 08/03/16 [History Confirmed 08/03/16] Levothyroxine Sodium 75 mcg PO DAILY 08/03/16 [History Confirmed 08/03/16] Losartan Potassium [Cozaar] 50 mg PO DAILY 08/03/16 [History Confirmed 08/03/16] Pravastatin Sodium 40 mg PO QHS 08/03/16 [History Confirmed 08/03/16] alprazolam 0.5 mg tablet 0.5 mg PO BID 02/04/18 [History Confirmed 02/04/18] cholecalciferol (vitamin D3) 2,000 unit capsule 2,000 unit PO DAILY 02/04/18 [History Confirmed 02/04/18] [facility] Medical History Facet arthropathy, lumbar (Chronic) Acute biliary pancreatitis (Acute) Arthritis (Acute) Diabetes (Acute) GERD (gastroesophageal reflux disease) (Acute) Heart murmur (Acute) High cholesterol (Acute) High triglycerides (Acute) Osteoarthritis (Acute) Parathyroid abnormality (Acute) Hypertension (Chronic) Social History Smoking Status: Current some day smoker alcohol intake: never substance use type: does not use what type of physical activity do you participate in: none HPI back pain : Chief Complaint: Low back pain Visit Number: 2 Details: GAYLE CHO is a 67 year old F who presents with low back pain. She states her pain has been persistent since her last visit leaving her with a sharp and tight ache banding across the low back. The patient also complains of numbness and tingling into the R leg, today she rates her pain a 4/10. Gayle describes her pain as a tight and sharp ache that bands across the low back, bending, lifting, twisting and walking all cause increased pain. Location: low back Duration: constant Aggravating or associated factors: waling, bending, lifting, and twisting Relieving factors: chiro Pain Quality: aching, dull, cramping, sharp Exam Musc General: Yes normal posture, normal gait, joint tenderness (T5,T6, L3-L5, R SI) and decreased ROM Thoracic/Lumbar Spine: thoracic and lumbar spine normal to inspection, pain with thoraco-lumbar ROM with rotation to the right, with rotation to the left, with lateral flexion to the right and other (extension), thoraco-lumbar ROM limited with forward flexion, with rotation to the left, with rotation to the right and with lateral flexion to the right, thoraco-lumbar spasm on the right in the mid thoracic and on the right greater than left (QL, piriformis), straight leg raise negative bilaterally, paraspinal tenderness on the right greater than left and on the right in the mid thoracic, Lasegue's sign negative Sacroiliac joints: on the right Office Procedures Chiropractic Treatments Procedures Manipulation: 3-4 regions (T5,L3,L5, RIL) Assessment AND Plan 1. Segmental and somatic dysfunction of lumbar region M99.03 Orders Orders: 2. Segmental and somatic dysfunction of pelvic region M99.05 Orders Orders: 3. Segmental and somatic dysfunction of thoracic region M99.02 Orders Orders: Plan Detail Goals Decrease pain Decrease spasm Barriers Facet arthropathy Follow Up 2 x week Coding Level of Care Code No Charge Diagnoses Segmental and somatic dysfunction of lumbar region M99.03 Segmental and somatic dysfunction of pelvic region M99.05 Segmental and somatic dysfunction of thoracic region M99.02 Additional Codes Procedures - Manipulation: 3-4 regions (02708) 02/11/18 1315 <Electronically signed by Jenny Ross D.C.> Date Jenny Ross D.C. Cosigner Signature: Date (if applicable) CC: CHIROPRACTIC REPORT Observed: 02/04/2018 Status: F Source: PATTI 1:31 PM [facility] [address] [place] [address] OFFICE VISIT Date of Service: 02/04/18 MR#: [id number] Acct: [id number] Name: GAYLE CHO Rep #: [id number] : 1950 Provider: Jenny Ross D.C. Age/Sex: 67/F Location: [facility] [place] Status: Signed Intake Vital Signs02/04/18 Height 5 ft 02/04/18 Weight: 157 lb 02/04/18 Body Mass Index (BMI) 30.7 Intake Visit Reasons: back pain Accompanied by: Is patient in pain?: Yes Allergies ANESTETICS Allergy (Uncoded 10/30/13 12:54) Swelling Medications Aspirin E.C. [Ecotrin] 81 mg PO DAILY@0800 08/03/16 [History Confirmed 08/03/16] Azithromycin 250 mg PO DAILY #4 tab 08/03/16 [Rx] Carvedilol [Coreg] 12.5 mg PO BID 08/03/16 [History Confirmed 08/03/16] Levothyroxine Sodium 75 mcg PO DAILY 08/03/16 [History Confirmed 08/03/16] Losartan Potassium [Cozaar] 50 mg PO DAILY 08/03/16 [History Confirmed 08/03/16] Pravastatin Sodium 40 mg PO QHS 08/03/16 [History Confirmed 08/03/16] alprazolam 0.5 mg tablet 0.5 mg PO BID 02/04/18 [History Confirmed 02/04/18] cholecalciferol (vitamin D3) 2,000 unit capsule 2,000 unit PO DAILY 02/04/18 [History Confirmed 02/04/18] PFSH Medical History Facet arthropathy, lumbar (Chronic) Acute biliary pancreatitis (Acute) Arthritis (Acute) Diabetes (Acute) GERD (gastroesophageal reflux disease) (Acute) Heart murmur (Acute) High cholesterol (Acute) High triglycerides (Acute) Osteoarthritis (Acute) Parathyroid abnormality (Acute) Hypertension (Chronic) Social History Smoking Status: Current some day smoker alcohol intake: never substance use type: does not use what type of physical activity do you participate in: none HPI back pain : Chief Complaint: Low back pain Visit Number: 1 Referral source: Details: GAYLE CHO is a 67 year old F who presents with low back pain. She states that her pain has been ongoing for many years due to severe arthritis in her low back. Today Gayle rates her pain a 1/10 and describes it as a dull ache that bands across the low back. Daily living, bending, and lifting all cause increased pain. At times when walking Gayle will experience a sharp stabbing pain in the back, causing weakness and severe pain in the low back. She also experiences richard horses in her low back when she frequently bends and twists. At its worst she rates her pain a 8/10, at this point the pain does radiate into the R leg, and groin although she denies any numbness, or tingling. Onset: 05/21/02 Location: low back Duration: constant Aggravating or associated factors: daily living, bending and lifting Relieving factors: none Pain Quality: aching, dull, cramping, sharp, radiating Exam Musc General: Yes normal posture, normal gait, joint tenderness (T5,T6, L3-L5, R SI) and decreased ROM Thoracic/Lumbar Spine: thoracic and lumbar spine normal to inspection, pain with thoraco-lumbar ROM with rotation to the right, with rotation to the left, with lateral flexion to the right and other (extension), thoraco-lumbar ROM limited with forward flexion, with rotation to the left, with rotation to the right and with lateral flexion to the right, thoraco-lumbar spasm on the right in the mid thoracic and on the right greater than left (QL, piriformis), straight leg raise negative bilaterally, paraspinal tenderness on the right greater than left and on the right in the mid thoracic, Lasegue's sign negative Sacroiliac joints: on the right Neuro General: alert, awake, oriented x3, gait normal, normal light touch, pain and propioception, no focal motor deficits Ortho Test CERVICAL THORACIC Kemps: Positive, Rig Diaz: Negative LUMBAR Kemps: Positive, Right, Le (R>L) Valsalvas: Positive SLR: Negative Braggards: Negative Iliac Compression: Positive, Right, Le Assessment AND Plan Problems 1. Segmental and somatic dysfunction of thoracic region M99.02 2. Segmental and somatic dysfunction of pelvic region M99.05 3. Segmental and somatic dysfunction of lumbar region M99.03 4. Facet arthropathy, lumbar M47.816 Plan Recommend acute care treatment after reviewing previous lumbar imaging along with exam findings. Plan Detail Goals Decrease pain Decrease spasm Barriers Facet arthropathy Follow Up 2x/wk/2-3 Coding Level of Care Code Off vis,new,level 3 Diagnoses Segmental and somatic dysfunction of thoracic region M99.02 Segmental and somatic dysfunction of pelvic region M99.05 Segmental and somatic dysfunction of lumbar region M99.03 Facet arthropathy, lumbar M47.816 02/04/18 1331 <Electronically signed by Jenny Ross D.C.> Date Jenny Ross D.C. Cosigner Signature: Date (if applicable) CC: Observed: 02/01/2018 Status: C Source: [facility] RESPIRATORY PANEL 12:46 PM [facility] RP PANEL Normal Reference Range = Not Detected RESULTS CALLED TO DR CHACON NURSE LINE02/01/18 1841 Suzanne Isaac. REPORT READ BACK BY NO ONE. ADENOVIRUS Not Detected HUMAN METAPHNEUMO Not Detected INFLUENZA A Not Detected INFLUENZA A (SUBTYPE H1) Not Detected INFLUENZA A (SUBTYPE H3) Not Detected INFLUENZA B Not Detected PARAINFLUENZA 1 Not Detected PARAINFLUENZA 2 Not Detected PARAINFLUENZA 3 Not Detected PARAINFLUENZA 4 Not Detected RHINOVIRUS Positive for RHINOVIRUS by NAAT technology RSV A Not Detected RSV B Not Detected NAAT METHOD Testing was performed using nucleic acid amplification ORGANISM 1: RHINOVIRUS Performed By: #### M100.638 #### [facility] [place], [address] ABD INC DECUB Observed: 01/16/2018 Status: F Source: PATTI AND/OR ERECT 1:09 PM [facility] Imaging Services [address] [place] [address] Abd Inc Decub and/or Erect MR#: [id number] Acct: [id number] Name: GAYLE CHO Rep #: [id number] : 1950 F 67 From: Debra Vega MD PCP: Mikhail Chacon MD, Chi Status: REG CLI Study: Abd Inc Decub and/or Erect Date of Exam: 01/16/18 Exam# [id number] Ordering Dr: Mikhail Chacon MD STUDY: X-RAY - ABDOMEN/PELVIS REASON FOR EXAM: Female, 67 years old. Right upper quadrant pain TECHNIQUE: Supine and upright views of the abdomen and pelvis were obtained. COMPARISON: CT abdomen and pelvis dated October 30, 2013 FINDINGS: The lung bases are unremarkable. There is an unremarkable bowel gas pattern. There is no demonstrated free abdominal air. There are calcific densities in the mid right abdomen. At least three dominant calcifications are seen with the largest measuring 1.9 cm. There are stable phleboliths in the lower pelvis. The soft tissues are unremarkable. There are moderate degenerative changes in the visualized spine. RAD/Abd Inc Decub and/or Erect IMPRESSION: Renal stones are again seen in the right kidney with the largest measuring up to 1.9 cm in the upper pole. Renal stones were also present in the right kidney on the prior CT. No stones are evident along the expected course of the right ureter. Electronically Signed: Debra Vega MD at 23:52 EDT Tel Direct: [phone], Service support , CC: Mikhail Chacon MD Invas Tech: Signed CBC W/DIFF, AUTOMATED Collected: 10/17/2017 Status: F Source: PATTI 3:57 PM [facility] TYPE CODE TESTS RESULT OUT OF RANGE REFERENCE UNITS LAB L100.1000 4.4-11.0 K/mm3 Normal WBC 7.8 LAB L100.1200 4.2-5.4 M/mm3 Normal RBC 4.43 LAB L100.1300 12.0-15.0 g/dl Normal HGB 13.4 LAB L100.1400 37-47 % Normal HCT 40.7 LAB L100.1500 81-99 fL Normal MCV 91.9 LAB L100.1600 27.0-32.0 pg Normal MCH 30.2 LAB L100.1700 32-36 g/gl Normal MCHC 32.9 LAB L100.1810 11.6-14.6 % Normal RDW CV 13.5 LAB L100.1820 35.1-43.9 fl High RDW SD 44.9 LAB L100.1900 150-450 K/mm3 Normal PLT 178 LAB L100.2000 6.2-12.0 fl Normal MPV 9.1 LAB L100.2100 47-70 % Normal NEUT% 49.8 LAB L100.2200 19-41 % Normal LY% 40.5 LAB L100.2300 0-10 % Normal MONO% 6.7 LAB L100.2400 0-5 % Normal EO% 2.6 LAB L100.2500 0-1 % Normal BASO% 0.4 LAB L100.2550 0.0-0.9 % Normal IM GRAN % 0.000 Result Comment: IG% - Immature Granulocytes (promyelocytes, myelocytes and metamyelocytes) > 1% indicates that a LEFT SHIFT is Present. LAB L100.2620 2.0-7.7 X10 3/uL Normal Absolute Neut 3.9 LAB L100.2720 0.83-4.51 X10 3/ul Normal Absolute Lymph 3.16 Performed By: #### L100.0100 #### [facility] [address] [place], [place], [address] VITAMIN D,25 HYDROXY Collected: 10/17/2017 Status: F Source: PATTI 3:57 PM [facility] TYPE CODE TESTS RESULT OUT OF REFERENCE UNITS RANGE LAB L506.1000 29.95-100.01 ng/mL Low Vitamin D 21.9 25-OH Result Comment: Vitamin D 25(OH) Status Range Deficiency <20 ng/mL (50nmol/L) Insuffciency 20 - 30 ng/mL (50 - 75 nmol/L) Sufficiency 30 - 100 ng/mL (75 - 250 nmol/L) Toxicity >100 ng/mL (>250 nmol/L) Performed By: #### L506.1000 #### [facility] [address] [place], [address] COMPREHENSIVE METABOLIC Collected: 10/17/2017 Status: F Source: [facility] 3:57 PM [facility] TYPE CODE TESTS RESULT OUT OF RANGE REFERENCE UNITS LAB L501.0100 74-106 mg/dL Normal GLU 81 Result Comment: Please note revised GLUCOSE reference range effective 2017. LAB L501.1000 7-18 mg/dL Normal BUN 16 LAB L501.1100 0.55-1.02 mg/dL High CREAT,SERUM 1.16 Result Comment: The validity of the calculated GFR AND GFRAA in patients over 70 years has not been determined. Clinical correlation is essential. LAB L501.1110 >60 mL/min Low EST GFR 49 Result Comment: Non- GFR Calc LAB L501.1115 >60 mL/min Normal EST GFR - AA 60 Result Comment: GFR Calc LAB L501.1300 10-20 RATIO Normal BUN/CRE 13.8 LAB L501.1500 6.4-8.2 g/dL T Normal PROT 7.6 LAB L501.1800 3.2-5.0 g/dL Normal ALB 3.9 LAB L501.1950 2.2-4.2 g/dL Normal GLOB 3.7 LAB L501.2000 0.9-2.4 RATIO Normal A/G 1.1 LAB L501.2200 8.5-10.1 mg/dL CA Normal 9.6 LAB L501.4100 15-37 U/L Normal AST 20 LAB L501.4305 45-117 U/L Normal ALK P 86 LAB L501.4405 13-56 U/L Normal ALT 29 LAB L501.4600 0.20-1.00 mg/dL T Normal BILI 0.60 LAB L501.5300 136-145 mmol/L NA Normal 140 LAB L501.5600 3.5-5.1 mmol/L K Normal 4.3 LAB L501.5900 98-107 mmol/L CL Normal 106 LAB L501.6100 21.0-32.0 mmol/L Normal CO2 28.0 LAB L501.6200 5-15 Normal GAP 6 Performed By: #### L500.4050, L501.9520 #### [facility] [address] [place], [address] THYROID STIM HORMONE Collected: 10/17/2017 Status: F Source: [place] ([facility]) 3:57 PM [facility] TYPE CODE TESTS RESULT OUT OF RANGE REFERENCE UNITS LAB L501.9520 0.358-3.74 uIU/mL Normal TSH 1.06 Performed By: #### L500.4050, L501.9520 #### [facility] [address] [facility] [place], [address] OBSOLETE Observed: 10/03/2017 Status: COMPLETED Source: [place] 12:00 AM [facility] REPOS[facility] Refill (AGCARDWST) GAYLE CHO ([id number]) 1950 F Date Time Provider Department 10/03/17 JESS PERDOMO AGCARDWST During your visit today, we recorded the following information about you: Kenyetta Hernandez LPN 10/03/2017 2:45 PM Signed Patient has been identified by name and date of : Yes Pending Prescriptions Disp Refills PRAVASTATIN 40 MG TABLET 90 tablet 3 Sig: Take 1 tablet by mouth daily at bedtime. RINKU: No RX INSTRUCTIONS: Patient aware RX will be sent to pharmacy. No need to notify patient. Kenyetta Hernandez LPN Allergies As of Date: 10/03/2017 Noted Allergy Reaction ANTIHISTIMINE 01/10/2017 5 - Intolerance Comments: Heart racing/palpitations ENALAPRIL 08/09/2007 14 - Other: See Comments Comments: Muscle myalgias LOPRESSOR (METOPROLOL TARTRATE) 08/09/2007 14 - Other: See Comments Comments: Muscle myalgias PENICILLINS 08/09/2007 2 - Rash SYNTHROID (LEVOTHYROXINE SODIUM) 08/09/2007 14 - Other: See Comments Comments: Fatigue and jittery Date Reviewed: 08/14/2017 Reviewed by: Kenyetta Hernandez - Fully Assessed Reason for Visit: Refill Request [94] Visit Diagnosis:Hyperlipidemia, unspecified hyperlipidemia type [E78.5] Order(s):pravastatin (PRAVACHOL) 40 mg tabletTake 1 tablet by mouth daily at bedtime.Disp: 90 tabletRfl: 3 Prescriptions as of 10/03/2017 Sig: PRAVASTATIN 40 MG TABLET Take 1 tablet by mouth daily * LOSARTAN 50 MG TABLET Take 1.5 tablets by mouth onc* CPAP AMLODIPINE 5 MG TABLET Take 1 tablet by mouth once d* CARVEDILOL 12.5 MG TABLET Take 1 tablet by mouth twice * NITROGLYCERIN 0.4 MG SUBLINGU* Dissolve 1 tablet under the t* ASPIRIN 81 MG TABLET,DELAYED * Take 1 tablet by mouth once d* LEVOXYL 75 MCG TABLET Take one(1) tablet daily. XANAX 0.5 MG TABLET Take 0.5 tablet three(3) dee* Problem List As Of Date 10/03/2017 Noted Resolved PAIN ABDOMEN( Right Lower Quadrant) [R10.31] INVALID FOR* Non-ST elevation myocardial infarction (NSTEMI)*INVALID FOR* Priority: Moderate Class: Acute More... Hypertension [I10] INVALID FOR* Priority: Mild More... Hypothyroidism [E03.9] INVALID FOR* More... Hyperlipidemia [E78.5] INVALID FOR* Class: Chronic More... Diabetes mellitus (HCC) [E11.9] INVALID FOR* More... Coronary artery disease [I25.10] INVALID FOR* S/P coronary artery stent placement [Z95.5] INVALID FOR* Chest pain [R07.9] INVALID FOR* Priority: B More... SUMMARY INVALID FOR* Priority: A More... Hypertensive urgency [I16.0] INVALID FOR* Priority: C More... Left arm pain [M79.602] INVALID FOR* More... Prescriptions ordered this encounter Disp Refills Start End PRAVASTATIN 40 MG TABLET 90 t* 3 10/03/2017 Route: ORAL Sig: Take 1 tablet by mouth daily at bedtime. Medications Discontinued During This Encounter pravastatin (PRAVACHOL) 40 mg tablet 30 t* 11 09/28/2016 10/03/2017 Route: ORAL Sig: Take 1 tablet by mouth daily at bedtime. Disc: Reason for discontinue is not on file. Encounter Status:Closed by KENYETTA HERNANDEZ LPN on 10/04/17 OBSOLETE Observed: 09/13/2017 Status: COMPLETED Source: [place] 12:00 AM [facility] Refill (AGCARDWST) GAYLE CHO ([id number]) 1950 F Date Time Provider Department 09/13/17 JESS PERDOMO AGCARDWST During your visit today, we recorded the following information about you: Gilberto Gonzalez MA 09/13/2017 11:30 AM Signed Patient phones requesting refills as follows: Pending Prescriptions Disp Refills LOSARTAN 50 MG TABLET 180 tablet 3 Sig: Take 1.5 tablets by mouth once daily. RINKU: No Please review and advise. Gilberto Gonzalez MA Allergies As of Date: 09/13/2017 Noted Allergy Reaction ANTIHISTIMINE 01/10/2017 5 - Intolerance Comments: Heart racing/palpitations ENALAPRIL 08/09/2007 14 - Other: See Comments Comments: Muscle myalgias LOPRESSOR (METOPROLOL TARTRATE) 08/09/2007 14 - Other: See Comments Comments: Muscle myalgias PENICILLINS 08/09/2007 2 - Rash SYNTHROID (LEVOTHYROXINE SODIUM) 08/09/2007 14 - Other: See Comments Comments: Fatigue and jittery Date Reviewed: 08/14/2017 Reviewed by: Kenyetta Hernandez - Fully Assessed Reason for Visit: Refill Request [94] Order(s):losartan (COZAAR) 50 mg tabletTake 1.5 tablets by mouth once daily.Disp: 180 tabletRfl: 3 Prescriptions as of 09/13/2017 Sig: LOSARTAN 50 MG TABLET Take 1.5 tablets by mouth onc* CPAP AMLODIPINE 5 MG TABLET Take 1 tablet by mouth once d* CARVEDILOL 12.5 MG TABLET Take 1 tablet by mouth twice * PRAVASTATIN 40 MG TABLET Take 1 tablet by mouth daily * NITROGLYCERIN 0.4 MG SUBLINGU* Dissolve 1 tablet under the t* ASPIRIN 81 MG TABLET,DELAYED * Take 1 tablet by mouth once d* LEVOXYL 75 MCG TABLET Take one(1) tablet daily. XANAX 0.5 MG TABLET Take 0.5 tablet three(3) dee* Problem List As Of Date 09/13/2017 Noted Resolved PAIN ABDOMEN( Right Lower Quadrant) [R10.31] INVALID FOR* Non-ST elevation myocardial infarction (NSTEMI)*INVALID FOR* Priority: Moderate Class: Acute More... Hypertension [I10] INVALID FOR* Priority: Mild More... Hypothyroidism [E03.9] INVALID FOR* More... Hyperlipidemia [E78.5] INVALID FOR* Class: Chronic More... Diabetes mellitus (HCC) [E11.9] INVALID FOR* More... Coronary artery disease [I25.10] INVALID FOR* S/P coronary artery stent placement [Z95.5] INVALID FOR* Chest pain [R07.9] INVALID FOR* Priority: B More... SUMMARY INVALID FOR* Priority: A More... Hypertensive urgency [I16.0] INVALID FOR* Priority: C More... Left arm pain [M79.602] INVALID FOR* More... Prescriptions ordered this encounter Disp Refills Start End LOSARTAN 50 MG TABLET 180 * 3 09/13/2017 Route: ORAL Sig: Take 1.5 tablets by mouth once daily. Medications Discontinued During This Encounter losartan (COZAAR) 50 mg tablet 09/28/2016 09/13/2017 Class: Med Update Route: ORAL Sig: Take 1.5 tablets by mouth once daily. Disc: Reason for discontinue is not on file. Encounter Status:Closed by GILBERTO GONZALEZ MA on 09/13/17 PROGRESS Observed: 08/14/2017 Status: COMPLETED Source: [place] 3:12 PM [facility] REPOS[facility] O ID: [id number] Author: Jess Perdomo Service: (none) Author Type: Physician Type: Progress Notes Filed: 08/15/2017 9:16 AM Note Text: PERTINENT CARDIAC HISTORY ASHD - s/p PCI 03/01, 10/31 HTN HL DM DC - CPAP ADHERENCE TO GUIDELINES CHRISTIANO-I or ARB for HF with prior LVEF<40 (NQF 0081) - N/A ASA or Plavix for ASHD (NQF 0067) - met Beta xochitl for ASHD with prior UT or prior LVEF<40 (NQF 0070) - N/A Beta xochitl for HF with prior LVEF<40 (NQF 0083) - N/A CHRISTIANO-I or ARB for ASHD with DM or prior LVEF<40 (NQF 0066) - met Statin therapy for ASHD or FHL or DM - met BMI documented and plan if >25 (NQF 0421) - lifestyle recommendation form Tobacco use screening and referral (NQF 0028) - lifestyle recommendation form Recommendation for whole food, plant based diet - lifestyle recommendation form CLINICAL IMPRESSION/PLAN: Gayle Cho has inadequately controlled blood pressure. She was strongly advised to take losartan doses as recommended, start amlodipine as recommended and use her CPAP as recommended. I've encouraged her to use nitroglycerin for chest discomfort and report whether it is effective. She's been advised to seek help regarding her home situation. She reports that she is not sleeping well because of noise in the house, coming from her animals and her . I discussed with her the importance of getting regular sleep, supported by CPAP, if we are to control her blood pressure and decrease risk of progression of coronary disease. I will see her in 8 months or as needed. I've asked her give me an update in a few weeks to let me know her progress. Written and verbal health teaching given to patient, patient verbalizes understanding and agrees with treatment plan. DIAGNOSIS FOR VISIT: ASHD HISTORY OF PRESENT ILLNESS Gayle Cho returns for follow-up of her coronary disease. She still is under stress. She is in a relationship which is not supportive. She speaks freely of this. She has had intermittent episodes of chest discomfort which is exacerbated by eating. She has not taken nitroglycerin. She remarks that she has been eating and sleeping throughout the day. She does not exercise. She has not started amlodipine. She is not using her CPAP regularly. Occasionally she skips p.m. doses of Cozaar. She's had no orthopnea. She's had minimal edema. She denies syncope, TIAs, amaurosis or claudication. ALLERGIES: ALLERGIES Allergen Reactions - Antihistimine Intolerance Heart racing/palpitations - Enalapril Other: See Comments Muscle myalgias - Lopressor [Metoprol* Other: See Comments Muscle myalgias - Penicillins Rash - Synthroid [Levothyr* Other: See Comments Fatigue and jittery CURRENT OUTPATIENT MEDICATIONS: losartan (COZAAR) 50 mg tablet Take 1.5 tablets by mouth once daily. carvedilol (COREG) 12.5 mg tablet Take 1 tablet by mouth twice daily. pravastatin (PRAVACHOL) 40 mg tablet Take 1 tablet by mouth daily at bedtime. nitroglycerin sublingual (NITROQUICK) 0.4 mg SL tablet Dissolve 1 tablet under the tongue as needed. FOR CHEST PAIN. IF NO RELIEF CALL 911 aspirin, enteric coated (ECOTRIN LOW STRENGTH) 81 mg EC tablet Take 1 tablet by mouth once daily. levothyroxine sodium(LEVOXYL 75 MCG TAB) Take one(1) tablet daily. alprazolam(XANAX 0.5 MG TAB) Take 0.5 tablet three(3) times daily as needed. CPAP amLODIPine (NORVASC) 5 mg tablet Take 1 tablet by mouth once daily. PHYSICAL EXAMINATION: VITAL SIGNS: BP 183/89 Pulse 64 Wt 160 lb 11.2 oz (72.9kg) Chest: Clear to percussion and auscultation. Trachea is midline. Air entry is equal. Cardiac: Regular rhythm. S1 and S2 are normal. PMI is nondisplaced. There is a soft S4 gallop and a soft systolic ejection murmur. Carotids are brisk without bruits. JVP is less than 10 cm. Abdomen: Soft and nontender. There are no pulsatile masses or bruits. No liver enlargement. Bowel sounds are active. Extremities: Trace edema. Pulses are intact and symmetrical. EKG shows sinus rhythm and is within normal limits. There is no significant change. Laboratory studies were reviewed. Renal function is mildly impaired, but stable. LDL was 81. Electronically Signed: Jess Perdomo MD August 14, 2017 3:12 PM CC: Mikhail Chacon MD CNOV Observed: 08/14/2017 Status: COMPLETED Source: [facility] 2:30 PM CLINIC OTHER [place] REPOSITORY Office Visit (AGCARDWST) GAYLE CHO ([id number]) 1950 F Date Time Provider Department 08/14/17 2:30 PM JESS PERDOMO AGCARDWST During your visit today, we recorded the following information about you: Pulse Blood pressure Weight 64/minute 183/89 72.9 kg Jess Perdomo MD 08/15/2017 9:16 AM Signed PERTINENT CARDIAC HISTORY ASHD - s/p PCI 03/01, 10/31 HTN HL DM DC - CPAP ADHERENCE TO GUIDELINES CHRISTIANO-I or ARB for HF with prior LVEFANDlt;40 (NQF 0081) - N/A ASA or Plavix for ASHD (NQF 0067) - met Beta xohcitl for ASHD with prior UT or prior LVEFANDlt;40 (NQF 0070) - N/A Beta xochitl for HF with prior LVEFANDlt;40 (NQF 0083) - N/A CHRISTIANO-I or ARB for ASHD with DM or prior LVEFANDlt;40 (NQF 0066) - met Statin therapy for ASHD or FHL or DM - met BMI documented and plan if ANDgt;25 (NQF 0421) - lifestyle recommendation form Tobacco use screening and referral (NQF 0028) - lifestyle recommendation form Recommendation for whole food, plant based diet - lifestyle recommendation form CLINICAL IMPRESSION/PLAN: Gayle Bautista Remy has inadequately controlled blood pressure. She was strongly advised to take losartan doses as recommended, start amlodipine as recommended and use her CPAP as recommended. I've encouraged her to use nitroglycerin for chest discomfort and report whether it is effective. She's been advised to seek help regarding her home situation. She reports that she is not sleeping well because of noise in the house, coming from her animals and her . I discussed with her the importance of getting regular sleep, supported by CPAP, if we are to control her blood pressure and decrease risk of progression of coronary disease. I will see her in 8 months or as needed. I've asked her give me an update in a few weeks to let me know her progress. Written and verbal health teaching given to patient, patient verbalizes understanding and agrees with treatment plan. DIAGNOSIS FOR VISIT: ASHD HISTORY OF PRESENT ILLNESS Gayle Cho returns for follow-up of her coronary disease. She still is under stress. She is in a relationship which is not supportive. She speaks freely of this. She has had intermittent episodes of chest discomfort which is exacerbated by eating. She has not taken nitroglycerin. She remarks that she has been eating and sleeping throughout the day. She does not exercise. She has not started amlodipine. She is not using her CPAP regularly. Occasionally she skips p.m. doses of Cozaar. She's had no orthopnea. She's had minimal edema. She denies syncope, TIAs, amaurosis or claudication. ALLERGIES: ALLERGIES Allergen Reactions - Antihistimine Intolerance Heart racing/palpitations - Enalapril Other: See Comments Muscle myalgias - Lopressor [Metoprol* Other: See Comments Muscle myalgias - Penicillins Rash - Synthroid [Levothyr* Other: See Comments Fatigue and jittery CURRENT OUTPATIENT MEDICATIONS: losartan (COZAAR) 50 mg tablet Take 1.5 tablets by mouth once daily. carvedilol (COREG) 12.5 mg tablet Take 1 tablet by mouth twice daily. pravastatin (PRAVACHOL) 40 mg tablet Take 1 tablet by mouth daily at bedtime. nitroglycerin sublingual (NITROQUICK) 0.4 mg SL tablet Dissolve 1 tablet under the tongue as needed. FOR CHEST PAIN. IF NO RELIEF CALL 911 aspirin, enteric coated (ECOTRIN LOW STRENGTH) 81 mg EC tablet Take 1 tablet by mouth once daily. levothyroxine sodium(LEVOXYL 75 MCG TAB) Take one(1) tablet daily. alprazolam(XANAX 0.5 MG TAB) Take 0.5 tablet three(3) times daily as needed. CPAP amLODIPine (NORVASC) 5 mg tablet Take 1 tablet by mouth once daily. PHYSICAL EXAMINATION: VITAL SIGNS: BP 183/89 Pulse 64 Wt 160 lb 11.2 oz (72.9kg) Chest: Clear to percussion and auscultation. Trachea is midline. Air entry is equal. Cardiac: Regular rhythm. S1 and S2 are normal. PMI is nondisplaced. There is a soft S4 gallop and a soft systolic ejection murmur. Carotids are brisk without bruits. JVP is less than 10 cm. Abdomen: Soft and nontender. There are no pulsatile masses or bruits. No liver enlargement. Bowel sounds are active. Extremities: Trace edema. Pulses are intact and symmetrical. EKG shows sinus rhythm and is within normal limits. There is no significant change. Laboratory studies were reviewed. Renal function is mildly impaired, but stable. LDL was 81. Electronically Signed: Jess Perdomo MD August 14, 2017 3:12 PM CC: MD Jess Reyes Chi, MD 08/14/2017 3:12 PM Signed LIFESTYLE CHANGE A healthy lifestyle is the most important component of your overall treatment plan. 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 EAT A WHOLE FOOD, PLANT BASED DIET The nutrition your body gets is more important than the medicine you take. What matters most is the overall way you eat. We encourage you to minimize the use of animal products (which include dairy and all meats except fatty fish) and use whole, unprocessed plant foods to provide your protein, vitamins and other nutrients. We have a lot of information to share with you on this topic. We also hold Shared Medical Appointments, where you can come visit with Dr. Perdomo in the company of other patients and spend over an hour talking about the challenges of changing the way you eat. This is not a ANDquot;dietANDquot;. It is a way of life that you will keep with you. EXERCISE REGULARLY It is not important to spend hours in the gym, lifting weights and perspiring heavily. A total of 2-3 hours per week of aerobic (causing you to be moderately short of breath) exercise is sufficient to improve your health. Talk to us before you begin a new exercise program, if you have heart disease or experience shortness of breath or chest pain. REDUCE STRESS Chronic emotional and physical stress leads to disease. Ways of reducing stress include meditation, visualization, prayer, yoga and other forms of relaxation therapy. Consistency is the rosas. Find a technique that works for you and do it every day. CULTIVATE RELATIONSHIPS Loneliness and isolation have a major negative impact on health. Seek out others who can love, care for and nurture you. Avoid hurtful relationships. MAINTAIN IDEAL BODY WEIGHT The best way to do this is to do all the things above. Our bodies naturally find the right weight if we keep moving and feed ourselves the right food. If your BMI is greater than 25, we strongly recommend a referral to a weight management program. Please speak to us or your family physician about available programs. AVOID NICOTINE IN ALL FORMS This includes all tobacco products, whether chewed, smoked, vaped, or rubbed on the skin. Smoking cessation programs, which can make use of tobacco substitutes, medications to suppress cravings and behavior management, are available. Please contact your family physician about programs in your area. Referring Provider: JESS PERDOMO [[id number]] Allergies As of Date: 08/14/2017 Noted Allergy Reaction ANTIHISTIMINE 01/10/2017 5 - Intolerance Comments: Heart racing/palpitations ENALAPRIL 08/09/2007 14 - Other: See Comments Comments: Muscle myalgias LOPRESSOR (METOPROLOL TARTRATE) 08/09/2007 14 - Other: See Comments Comments: Muscle myalgias PENICILLINS 08/09/2007 2 - Rash SYNTHROID (LEVOTHYROXINE SODIUM) 08/09/2007 14 - Other: See Comments Comments: Fatigue and jittery Date Reviewed: 08/14/2017 Reviewed by: Kenyetta Hernandez - Fully Assessed Reason for Visit: Recheck [92] Primary Visit Diagnosis:Hypertension, essential [I10] Other Visit Diagnosis:ASHD (arteriosclerotic heart disease) [I25.10] Order(s):ECG B/O W INTERP (MED OFFICE) [ECG06] Order #: [id number] Prescriptions as of 08/14/2017 Sig: LOSARTAN 50 MG TABLET Take 1.5 tablets by mouth onc* CARVEDILOL 12.5 MG TABLET Take 1 tablet by mouth twice * PRAVASTATIN 40 MG TABLET Take 1 tablet by mouth daily * NITROGLYCERIN 0.4 MG SUBLINGU* Dissolve 1 tablet under the t* ASPIRIN 81 MG TABLET,DELAYED * Take 1 tablet by mouth once d* LEVOXYL 75 MCG TABLET Take one(1) tablet daily. XANAX 0.5 MG TABLET Take 0.5 tablet three(3) dee* CPAP AMLODIPINE 5 MG TABLET Take 1 tablet by mouth once d* Medication notes this encounter LOSARTAN 50 MG TABLET >> Kenyetta Hernandez LPN 08/14/2017 2:54 PM >> KENYETTA HERNANDEZ LPN SunAug 14, 2017 2:54 PM 2 tablets daily Problem List As Of Date 08/14/2017 Noted Resolved PAIN ABDOMEN( Right Lower Quadrant) [R10.31] INVALID FOR* Non-ST elevation myocardial infarction (NSTEMI)*INVALID FOR* Priority: Moderate Class: Acute More... Hypertension [I10] INVALID FOR* Priority: Mild More... Hypothyroidism [E03.9] INVALID FOR* More... Hyperlipidemia [E78.5] INVALID FOR* Class: Chronic More... Diabetes mellitus (HCC) [E11.9] INVALID FOR* More... Coronary artery disease [I25.10] INVALID FOR* S/P coronary artery stent placement [Z95.5] INVALID FOR* Chest pain [R07.9] INVALID FOR* Priority: B More... SUMMARY INVALID FOR* Priority: A More... Hypertensive urgency [I16.0] INVALID FOR* Priority: C More... Left arm pain [M79.602] INVALID FOR* More... Other instructions from your clinician: LIFESTYLE CHANGE A healthy lifestyle is the most important component of your overall treatment plan. 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 EAT A WHOLE FOOD, PLANT BASED DIET The nutrition your body gets is more important than the medicine you take. What matters most is the overall way you eat. We encourage you to minimize the use of animal products (which include dairy and all meats except fatty fish) and use whole, unprocessed plant foods to provide your protein, vitamins and other nutrients. We have a lot of information to share with you on this topic. We also hold Shared Medical Appointments, where you can come visit with Dr. Perdomo in the company of other patients and spend over an hour talking about the challenges of changing the way you eat. This is not a diet. It is a way of life that you will keep with you. EXERCISE REGULARLY It is not important to spend hours in the gym, lifting weights and perspiring heavily. A total of 2-3 hours per week of aerobic (causing you to be moderately short of breath) exercise is sufficient to improve your health. Talk to us before you begin a new exercise program, if you have heart disease or experience shortness of breath or chest pain. REDUCE STRESS Chronic emotional and physical stress leads to disease. Ways of reducing stress include meditation, visualization, prayer, yoga and other forms of relaxation therapy. Consistency is the rosas. Find a technique that works for you and do it every day. CULTIVATE RELATIONSHIPS Loneliness and isolation have a major negative impact on health. Seek out others who can love, care for and nurture you. Avoid hurtful relationships. MAINTAIN IDEAL BODY WEIGHT The best way to do this is to do all the things above. Our bodies naturally find the right weight if we keep moving and feed ourselves the right food. If your BMI is greater than 25, we strongly recommend a referral to a weight management program. Please speak to us or your family physician about available programs. AVOID NICOTINE IN ALL FORMS This includes all tobacco products, whether chewed, smoked, vaped, or rubbed on the skin. Smoking cessation programs, which can make use of tobacco substitutes, medications to suppress cravings and behavior management, are available. Please contact your family physician about programs in your area. Follow-up and Disposition History Recorded Encounter Status:Closed by JESS PERDOMO MD on 08/15/17 ALLERGIES ALLERGIES DATE TYPE / CODE NAME / CODE REACTION SEVERITY SOURCE DRUG/[id number](SNO ANTIHISTIMINE INTOLERANCE [place] [address]) Clinic Other [place] Repository Miscellaneous ANESTETICS Swelling Unknown [facility] 4 Allergy/933280404( Community SNOMED CT) Hospital Repository DRUG ENALAPRIL OTHER: SEE Slim Opdyke 8 INGREDI/264880507( Clinic Other SNOMED CT) [place] Rep[facility] DRUG METOPROLOL OTHER: SEE Slim Mancilla 8 INGREDI/388158626( TARTRATE Clinic Other SNOMED CT) [place] [facility] Drug PENICILLINS RASH Opdyke 8 Class/821687051(SN Clinic Other OMED CT) [place] Rep[facility] 03/21/200 DRUG LEVOTHYROXINE OTHER: SEE C Opdyke 8 INGREDI/937445901( SODIUM Clinic Other SNOMED CT) [place] Rep[facility] NG/644296773(SNOME ANTIHISTIMINE [facility]) [facility] Repository NG/558199681(SNOME ENALAPRIL [facility]) [facility] Repository NG/922639037(SNOME METOPROLOL [facility]) TARTRATE [facility] Repository NG/100187937(SNOME PENICILLINS [facility]) [facility] Repository NG/648839468(SNOME LEVOTHYROXINE [facility]) SODIUM [facility] Repository ENCOUNTERS ENCOUNTERS ADMIT/DISCHARGE ACCOUNT NUMBER ADMITTING ENCOUNTER LOCATION SOURCE CLASS 04/16/2018 [id number] Ambulatory [facility] ding:POLAB3 Repository 04/16/2018/04/17/20 [id number] Ambulatory [address] Repository 04/16/2018 [id number] Ambulatory [facility] MEDICAL Repository CENTERBuildi ng:CAGWS 04/15/2018/04/15/20 [id number] Ambulatory BMSBuilding: [facility] Repository 04/08/2018/04/08/20 [id number] Ambulatory BMSBuilding: [facility] 18 BMS.[facility] Repository 04/04/2018/04/04/20 [id number] Ambulatory BMSBuilding: [place] 18 [facility] Repository 03/12/2018/03/12/20 [id number] Ambulatory BMSBuilding: [place] [facility] Repository 02/25/2018/02/26/20 [id number] Ambulatory BMSBuilding: [place] [facility] Repository 02/14/2018/02/15/20 [id number] Ambulatory BMSBuilding: [place] [facility] Repository 02/11/2018/02/12/20 [id number] Ambulatory BMSBuilding: [place] 18 BMS[facility] Repository 02/04/2018/02/05/20 [id number] Ambulatory BMSBuilding: [place] 18 [facility] Repository 02/01/2018 [id number] Ambulatory [facility] ding:PSN Repository 01/16/2018 [id number] Ambulatory [facility] ding:RAD Repository 10/17/2017 [id number] Ambulatory [facility] ding:POLAB3 Repository 08/14/2017/08/15/19 [id number] Ambulatory [address] Other [place] Rep[facility] 08/14/2017/08/15/19 [id number] Ambulatory [address] MEDICAL Repository [facility] ng:CATE PAYERS PAYERS ENCOUNTER GUARANTOR PAYER SUBSCRIBER SOURCE 04/16/2018 BAKARI Rodney Primary GAYLE J [place] [id number] Insurance:MEDICARE TRUMPHOURDOB: [facility] PART A [facility] [id number] Number: Repository [address]Xaw: [phone] [id number] [phone] (HP) Date:2018-04-16 04/16/2018 Secondary GAYLE Armstrong Insurance:HUMANA TRUMPHOURDOB: [facility] [id number] [facility] Number: Repository [id number] Date:5661-68-61FY [address] [place] [address]ZO: 04/16/2018 Tertiary NOT GIVENUNK [place] Insurance:SELF PAY [facility] Number: Effective Repository Date:2018-04-16 04/16/2018 GAYLE Bautista Primary G[facility]LE [facility] TRUMPHOURDOB: Insurance:MEDICARE A TRUMPHOURDOB: [facility] [id number] AND BPolicy Number: [id number] [facility] [id number] [address], [place] Date: [address]Zuf: (HP) 04/16/2018 Secondary GAYLE [facility] Insurance:HUMANA TRUMPHOURDOB: [facility] MEDICARE [id number] Repository SUPPLEMENTPolicy Number: [id number] Date: 04/15/2018 BAKARI Rodney Primary GAYLE J [place] [id number] Insurance:MEDICARE TRUMPHOURDOB: [facility] PART A [facility] [id number], [place] Number: Repository [address]Wdr: 330 [id number] [phone] () Date:2018-04-08 04/15/2018 Secondary GAYLE J [place] Insurance:HUMANA TRUMPHOURDOB: Community COMMERCIALPolicy [id number] Hospital Number: Repository [id number] Date:7404-35-33PO [address] [address]VO: 04/15/2018 Tertiary NOT GIVENUNK [place] Insurance:SELF PAY [facility] Number[facility] Effective Repository Date:2018-04-15 04/08/2018 BAKARI A Primary GAYLE J [place] [id number] Insurance:MEDICARE TRUMPHOURDOB: [facility] PART A [facility] [id number], [place] Number: Repository [address]Pmb: 330 [id number] [phone] () Date:2018-04-04 04/08/2018 Secondary GAYLE J [place] Insurance:HUMANA TRUMPHOURDOB: [facility] [id number] Hospital Number: Repository [id number] Date:1321-51-21LG [address] [address]MZ: 04/08/2018 Tertiary NOT GIVENUNK [place] Insurance:SELF PAY [facility] Number: Effective Repository Date:2018-04-08 04/04/2018 BAKARI A Primary GAYLE J [place] [id number] Insurance:MEDICARE TRUMPHOURDOB: [facility] PART A [facility] [id number], [place] Number: Repository [address]Fnu: 330 [id number] [phone] () Date:2018-04-04 04/04/2018 Secondary GAYLE J [place] Insurance:HUMANA TRUMPHOURDOB: [facility] COMMERCIALPolicy [id number] Hospital Number: Repository [id number] Date:6150-05-77PE [address] [address]UM: 04/04/2018 Tertiary NOT GIVENUNK [place] Insurance:SELF PAY [facility] Number: Effective Repository Date:2018-04-04 03/12/2018 Bakari A Primary GAYLE J [place] [id number] Insurance:MEDICARE TRUMPHOURDOB: [facility] PART A [facility] [id number] Number: Repository [address]Ber: 330 [id number] [phone] () Date:2018-03-04 03/12/2018 Secondary GAYLE J [place] Insurance:HUMANA TRUMPHOURDOB: [facility] [id number] Hospital Number: Repository [id number] Date:[id number] [address]FW: 03/12/2018 Tertiary NOT GIVENUNK [place] Insurance:SELF PAY [facility] Number: Effective Repository Date:2018-03-12 02/25/2018 Bakari A Primary GAYLE J [place] [id number] Insurance:MEDICARE TRUMPHOURDOB: [facility] PART A [facility] [id number] [place] Number: Repository [address]Knb: 330 [id number] [phone] () Date:2018-02-18 02/25/2018 Secondary GAYLE J [place] Insurance:HUMANA TRUMPHOURDOB: [facility] [id number] Hospital Number: Repository [id number] Date:7519-03-46BY[address] [address]LW: 02/25/2018 Tertiary NOT GIVENUNK [place] Insurance:SELF PAY [facility] Number: Effective Repository Date:2018-02-25 02/14/2018 Bakari A Primary GAYLE J [place] [id number] Insurance:MEDICARE TRUMPHOURDOB: [facility] PART A [facility] [id number] [place] Number: Repository [id number]: 330 [id number] [phone] (HP) Date:2018-02-04 02/14/2018 Secondary GAYLE J [place] Insurance:HUMANA TRUMPHOURDOB: [facility] [id number] Hospital Number: Repository [id number] Date:[id number] [address]XB: 02/14/2018 Tertiary NOT GIVENUNK [place] Insurance:SELF PAY [facility] Hospital Number: Effective Repository Date:2018-02-14 02/11/2018 Bakari A Primary GAYLE J [place] [id number] Insurance:MEDICARE TRUMPHOURDOB: [facility] PART A [facility] [id number] Number: Repository [address]Jsd: 330 [id number] [phone] () Date:2018-02-04 02/11/2018 Secondary GAYLE J [place] Insurance:HUMANA TRUMPHOURDOB: [facility] [id number] Hospital Number: Repository [id number] Date:1614-25-65NK[address] [address]YM: 02/11/2018 Tertiary NOT GIVENUNK [place] Insurance:SELF PAY [facility] Hospital Number: Effective Repository Date:2018-02-11 02/04/2018 Bakari A Primary GAYLE J [place] [id number] Insurance:MEDICARE TRUMPHOURDOB: [facility] PART A [facility] [id number] [place] Number: Repository [address]Bsz: 330 [id number] [phone] () Date:2018-01-18 02/04/2018 Secondary GAYLE J [place] Insurance:HUMANA TRUMPHOURDOB: [facility] [id number] Hospital Number: Repository [id number] Date:3252-27-69XG [address] [address]YP: 02/04/2018 Tertiary NOT GIVENUNK [place] Insurance:SELF PAY [facility] Number: Effective Repository Date:2018-02-04 02/01/2018 Bakari A Primary GAYLE Michele [place] [id number] Insurance:MEDICARE [facility]OURD[facility] olicy [id number], [place] Number: Repository [address]Bxp: 330 [id number] [phone] (HP) Date:2018-02-01 02/01/2018 Secondary GAYLE J [place] Insurance:HUMANA TRUMPHOURDOB: [facility] COMMERCIALPolicy [id number] Hospital Number: Repository [id number] Date:9378-36-89PP [address] [address]MS: 02/01/2018 Tertiary NOT GIVENUNK [place] Insurance:SELF PAY [facility] Number: Effective Repository Date:2018-02-01 01/16/2018 Bakari A Primary GAYLE J [place] [id number] Insurance:MEDICARE TRUMPHOURDOB: [facility] [facility] [id number], [place] Number: Repository [id number]: [phone] [id number] [phone] () Date:2018-01-16 01/16/2018 Secondary GAYLE J Patti Insurance:HUMANA TRUMPHOURDOB: [facility] COMMERCIALPolicy [id number] Hospital Number: Repository [id number] Date:4892-08-48YA [address] [place] [id number]: 01/16/2018 Tertiary NOT GIVENUNK Jackson Insurance:SELF PAY [facility] Effective Repository Date:2018-01-16 10/17/2017 Bakari A Primary GYALE Michele [place] [id number] Insurance:MEDICARE TRUMPHOURDOB: [facility] [id number], [place] Number: Repository [id number]: [id number] [phone] Date:2017-10-17 (HP) 10/17/2017 Secondary GAYLE Angeloster Insurance:HUMANA TRUMPHOURDOB: Community COMMERCIALPolicy [id number] Hospital Number: Repository [id number] Date:[id number] [id number]: 10/17/2017 Tertiary NOT GIVENUNK Patti Insurance:SELF PAY [facility] Number: Effective Repository Date:2017-10-17 08/14/2017 GAYLE Bautista Primary GAYLE [facility] TRUMPHOURDOB: Insurance:MEDICARE A TRUMPHOURDOB: [facility] [id number] AND BPolicy Number: [id number] [facility] [id number] [place] Date: [id number]: (HP) 08/14/2017 Secondary GAYLE [facility] Insurance:HUMANA TRUMPHOURDOB: [facility] MEDICARE [id number] Repository SUPPLEMENTPolicy Number: [id number] Date:
== END ==
PROVIDERS: Family Provider Family Medicine Geriatric Medicine; PCP Family Medicine Geriatric Medicine; Visit Provider Family Medicine Geriatric Medicine
DX: E11.9 Type 2 diabetes mellitus without complications (principal); E55.9 Vitamin D deficiency, unspecified; I10 Essential (primary) hypertension; N39.0 Urinary tract infection, site not specified
CPT/HCPCS: 36415; 80053; 82306; 84443; 85025; 87077; 87086; 87088; 87186

== ENCOUNTER → 2018-06-12 12:15 | Outpatient (CLI) | payer MEDICARE, OTHER, SELFPAY ==
[2018-04-15 14:11] VITALS: BMI 30.7
--- NOTE | 2018-06-12 12:20 | CT_ITS ---
STUDY: CT ABDOMEN AND PELVIS WITHOUT CONTRAST REASON FOR EXAM: Female, 68 years old. Right-sided back pain. History of kidney stones. RADIATION DOSAGE (If Supplied By Facility): CTDIvol = ( 9.82 ) mGy, DLP = ( 441.76 ) mGycm TECHNIQUE: Transaxial images were obtained from the dome of the diaphragm to the symphysis pubis without oral contrast, and without intravenous contrast. Sagittal and coronal images were reconstructed. Individualized dose optimization techniques were used for this CT. COMPARISON: Comparison is made with prior study dated October 30, 2013. FINDINGS: The visualized lung bases are unremarkable. Coronary artery calcification. There is decreased attenuation of the liver consistent with steatosis. Normal gallbladder and extrahepatic biliary system. Normal spleen. Normal pancreas. Normal bilateral adrenal glands. Multiple right intrarenal calculi are seen. The largest calculi are in the upper pole. The largest calcification measures 1.4 cm. There is also evidence of a 9.2 mm calculus in the lower pole of the right kidney. Normal left kidney. Normal visualized stomach. Normal small intestine. Normal colon. The appendix is visualized and appears normal. There is diffuse atherosclerotic calcification of the abdominal aorta, without a demonstrated aneurysm. Normal inferior vena cava. Normal retroperitoneum. Normal urinary bladder. Normal abdominal wall. There are mild degenerative changes of the visualized lumbar spine. CT/Abdomen/Pelvis without Cont IMPRESSION: Right intrarenal calculi. Electronically Signed: Yoni Islas MD at 13:06 EST , Service support ,
--- OUTSIDE RECORDS SUMMARY | 2018-08-14 10:31 | XMS RPT_ITS ---
:1950 Author Organization OHIP Support Name Relationship Address Phone R Unavailable Unavailable Unavailable STRETCH, JOVANY Unavailable [address] + [place] [address] TRUMPHOUR, BAKARI Unavailable [address] [place] [address] R Unavailable Unavailable Unavailable STRETCH, JOVANY Unavailable [address] + [place] [address] TRUMPHOUR, BAKARI Unavailable [address] + [address] [place] [address] R Unavailable Unavailable Unavailable STRETCH, JOVANY Unavailable [address] + [place] [address] TRUMPHOUR, BAKARI Unavailable [address] + [address] [place] [address] R Unavailable Unavailable Unavailable STRETCH, JOVANY Unavailable [address] + [place] [address] TRUMPHOUR, BAKARI Unavailable [address] + [address] [place] [address] R Unavailable Unavailable Unavailable STRETCH, JOVANY Unavailable [address] + [place] [address] TRUMPHOUR, BAKARI Unavailable [address] + [address] [place] [address] R Unavailable Unavailable Unavailable STRETCH, JOVANY Unavailable [address] + [place] [address] TRUMPHOUR, BAKARI Unavailable [address] + [address] [place] [address] R Unavailable Unavailable Unavailable STRETCH, JOVANY Unavailable [address] + [place] [address] TRUMPHOUR, BAKARI Unavailable [address] + [address] [place] [address] R Unavailable Unavailable Unavailable STRETCH, JOVANY Unavailable [address] + [place] [address] TRUMPHOUR, BAKARI Unavailable [address] [place] [address] R Unavailable Unavailable Unavailable STRETCH, JOVANY Unavailable [address] + [place] [address] TRUMPHOUR, BAKARI Unavailable [address] [place] [address] R Unavailable Unavailable Unavailable STRETCH, JOVANY Unavailable [address] + [place] [address] TRUMPHOUR, BAKARI Unavailable [address] [place] [address] R Unavailable Unavailable Unavailable STRETCH, JOVANY Unavailable [address] + [place] [address] TRUMPHOUR, BAKARI Unavailable [address] [place] [address] R Unavailable Unavailable Unavailable STRETCH, JOVANY Unavailable [address] + [place] [address] TRUMPHOUR, BAKARI Unavailable [address] [place] [address] R Unavailable Unavailable Unavailable STRETCH, JOVANY Unavailable [address] + [place] [address] TRUMPHOUR, BAKARI Unavailable [address] [place] [address] Care Team Providers Name Role Phone Ines, Mikhail Chi Attending Unavailable Ines, Mikhail Chi Primary Care Unavailable Ines, Mikhail Chi Attending Unavailable Ines, Mikhail Chi Referring Unavailable Ines, Mikhail Chi Primary Care Unavailable Ines, Mikhail Chi Attending Unavailable Ines, Mikhail Chi Referring Unavailable Ines, Mikhail Chi Primary Care Unavailable Ines, Mikhail Chi Attending Unavailable Ines, Mikhail Chi Referring Unavailable Ines, Mikhail Chi Primary Care Unavailable DossiJenny gonzalez D.C. Attending Unavailable Ines, Mikhail Chi Referring Unavailable Ines, Mikhail Chi Primary Care Unavailable DosJenny dominguez D.C. Attending Unavailable Ines, Mikhail Chi Referring Unavailable Ines, Mikhail Chi Primary Care Unavailable Dossie, Jenny Villarreal Attending Unavailable Ines, Mikhail Chi Referring Unavailable Dossie, Jenny Villarreal Attending Unavailable Ines, Mikhail Chi Referring Unavailable Dossie, Jenny Villarreal Attending Unavailable Ines, Mikhail Chi Referring Unavailable Dossie, Jenny Villarreal Attending Unavailable Ines, Mikhail Chi Referring Unavailable Dossie, Jenny Villarreal Attending Unavailable Dossie, Jenny Villarreal Attending Unavailable Ines, Mikhail Chi Attending Unavailable Ines, Mikhail Chi Primary Care Unavailable CONOR, JESS E Attending Unavailable CONOR, JESS E Referring Unavailable CONOR, JESS E Attending Unavailable CONOR, JESS E Referring Unavailable CONOR, JESS Attending Unavailable INES, MIKHAIL-CHI Primary Care Unavailable CONOR, JESS Referring Unavailable CONOR, JESS Attending Unavailable CONOR, JESS Referring Unavailable INES, MIKHAIL-CHI Primary Care Unavailable PROBLEMS PROBLEMS DATE TYPE CONDITION / CODE ATTENDING STATUS SOURCE 06/12/2018 Unknown N39.0 - Urinary Ines, Mikhail Chi Active [place] tract infection, Community site not specified / Hospital N39.0(ICD-10) Repository 04/16/2018 Unknown M99.02 - Segmental Dossie, Jenny Active [facility] and somatic [facility] Community dysfunction of Hospital thoracic region / Repository M99.02(ICD-10) 04/16/2018 Unknown M99.05 - Segmental Dossie, Jenny Active [place] and somatic D.C. Community dysfunction of Hospital pelvic region / Repository M99.05(ICD-10) 04/16/2018 Unknown M99.03 - Segmental Dossie, Jenny Active [place] and somatic D.C. 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, Repository lumbar region / M47.816(ICD-10) 02/01/2018 Unknown R68.83 - Chills Ines, Mikhail Chi Active [facility] (without fever) / Community R68.83(ICD-10) Hospital Repository 10/17/2017 Unknown E11.9 - Type 2 Ines, Mikhail Chi Active [facility] diabetes mellitus Community without Hospital complications / Repository E11.9(ICD-10) 10/17/2017 Unknown E55.9 - Vitamin D Ines, Mikhail Chi Active [place] deficiency, Community unspecified / Hospital E55.9(ICD-10) Repository 10/17/2017 Unknown I10 - Essential Ines, Mikhail Chi Active [facility] (primary) Community hypertension / Hospital I10(ICD-10) Repository 08/14/2017 Active Essential (primary) CONOR, Active [place] hypertension / [facility] Other I10(ICD-10) [place] Repository 08/14/2017 Active Atherosclerotic CONOR, 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 ORGANISM 1: Streptococcus group B Mcdonald Count <1000 Performed By: #### M100.0650 #### [facility] [address] [facility] [place], [address] ABDOMEN/PELVIS WITHOUT Observed: 06/12/2018 Status: F Source: [place] CONT 12:20 PM [facility] REPOSITORY [facility] Imaging Services [address] [place] [address] Abdomen/Pelvis without Cont MR#: [id number] Acct: [id number] Name: GAYLE CHO Rep #: [id number] : 1950 F 68 From: Yoni Islas MD PCP: Ines SWARTZ,Mikhail Basilio Status: REG CLI Study: Abdomen/Pelvis without Cont Date of Exam: 06/12/18 Exam# [id number] Ordering Dr: Mikhail Chacon MD STUDY: CT ABDOMEN AND PELVIS WITHOUT CONTRAST REASON FOR EXAM: Female, 68 years old. Right-sided back pain. History of kidney stones. RADIATION DOSAGE (If Supplied By Facility): CTDIvol = ( 9.82 ) mGy, DLP = ( 441.76 ) mGycm TECHNIQUE: Transaxial images were obtained from the dome of the diaphragm to the symphysis pubis without oral contrast, and without intravenous contrast. Sagittal and coronal images were reconstructed. Individualized dose optimization techniques were used for this CT. COMPARISON: Comparison is made with prior study dated October 30, 2013. FINDINGS: The visualized lung bases are unremarkable. Coronary artery calcification. There is decreased attenuation of the liver consistent with steatosis. Normal gallbladder and extrahepatic biliary system. Normal spleen. Normal pancreas. Normal bilateral adrenal glands. Multiple right intrarenal calculi are seen. The largest calculi are in the upper pole. The largest calcification measures 1.4 cm. There is also evidence of a 9.2 mm calculus in the lower pole of the right kidney. Normal left kidney. Normal visualized stomach. Normal small intestine. Normal colon. The appendix is visualized and appears normal. There is diffuse atherosclerotic calcification of the abdominal aorta, without a demonstrated aneurysm. Normal inferior vena cava. Normal retroperitoneum. Normal urinary bladder. Normal abdominal wall. There are mild degenerative changes of the visualized lumbar spine. CT/Abdomen/Pelvis without Cont IMPRESSION: Right intrarenal calculi. Electronically Signed: Yoni Islas MD at 13:06 EST , Service support , CC: Mikhail Chacon MD Latex Ribbon Machine Operator: Signed Observed: 04/16/2018 Status: F Source: [place] CULTURE, URINE 2:50 PM [facility] REPOSITORY Urine Culture ORGANISM 1: Streptococcus agalactiae (B) Mcdonald Count >100,000 Streptococcus agalactiae (B): REACTION Ampicillin $ <=0.25 S Inducable Clindamycin [place] - Linezolid $$$$ <=2 S Vancomycin $ 0.5 S (NF) indicates non-formulary drug at [facility]. Approval by Infectious Disease Specialist required before non-formulary drugs may be ordered and/or dispensed. * CLSI guidelines does not recommend testing of cephalosporins. This interpretation is deduced from Beta-lactam/penicillin results. Performed By: #### M100.0650 #### [facility] [address] [place], [place], [address] VITAMIN D,25 HYDROXY Collected: 04/16/2018 Status: F Source: [place] 1:51 PM [facility] REPOSITORY TYPE CODE TESTS RESULT OUT OF REFERENCE UNITS RANGE LAB L506.1000 29.95-100.01 ng/mL Low Vitamin D 23.3 25-OH Result Comment: Vitamin D 25(OH) Status Range Deficiency <20 ng/mL (50nmol/L) Insuffciency 20 - 30 ng/mL (50 - 75 nmol/L) Sufficiency 30 - 100 ng/mL (75 - 250 nmol/L) Toxicity >100 ng/mL (>250 nmol/L) Performed By: #### L506.1000 #### [facility] [address] [facility] [place], [address] CBC W/DIFF, AUTOMATED Collected: 04/16/2018 Status: F Source: [place] 1:51 PM [facility] REPOSITORY TYPE CODE TESTS RESULT OUT OF [...] Lymph 3.35 Performed By: #### L100.0100 #### [facility] [address] [place], [address] COMPREHENSIVE METABOLIC Collected: 04/16/2018 Status: F Source: [facility] 1:51 PM [facility] REPOSITORY TYPE CODE TESTS RESULT OUT OF [...] 8 Performed By: #### L500.4050, L501.9520 #### [facility] [address] [place], [place], [address] THYROID STIM HORMONE Collected: 04/16/2018 Status: F Source: [place] (TSH) 1:51 PM [facility] REPOSITORY TYPE CODE TESTS RESULT OUT OF RANGE REFERENCE UNITS LAB L501.9520 0.358-3.74 uIU/mL Normal TSH 1.31 Performed By: #### L500.4050, L501.9520 #### [facility] [address] [facility] [place], [address] CNOV Observed: 04/16/2018 Status: COMPLETED Source: [place] 11:30 AM [facility] REPOSITORY Office Visit (CAWSTR) GAYLE CHO ([id number]) 1950 F Date Time Provider Department 04/16/18 11:30 AM JESS PERDOMO CAWSTR During your visit today, we recorded the [...] met Beta xochitl for ASHD with prior [place] or prior LVEF<40 (NQF 0070) - N/A [...] the following areas and commit to making long-term changes. EAT A WHOLE FOOD, PLANT BASED [...] in your area. Referring Provider: JESS PERDOMO [[id number]] Allergies As of Date: 04/16/2018 Noted Allergy [...] the following areas and commit to making long-term changes. EAT A WHOLE FOOD, PLANT BASED [...] CHIROPRACTIC REPORT Observed: 04/16/2018 Status: F Source: [place] 11:29 AM [facility] [address] [place] [address] OFFICE VISIT Date of Service: 04/15/18 MR#: [id number] Acct: [id number] Name: GAYLE CHO Rep #: [id number] : 1950 Provider: Jenny Ross D.C. Age/Sex: 68/F [place] [facility] [place]: Signed Intake Vital Signs04/15/18 Height 5 [...] unit PO DAILY 02/04/18 [History Confirmed 02/04/18] [facility] Medical History Facet arthropathy, lumbar (Chronic) Acute [...] Additional Codes Procedures - Manipulation: 3-4 regions (15441) 04/16/18 1129 <Electronically signed by Jenny Ross D.C.> Date Jenny Ross D.C. Cosigner Signature: Date (if applicable) CC: PROGRESS Observed: 04/16/2018 Status: COMPLETED Source: [place] 11:28 AM [facility] REPOSITORY HNO ID: [id number] Author: Jess Perdomo Service: (none) Author Type: [...] met Beta xochitl for ASHD with prior [place] or prior LVEF<40 (NQF 0070) - N/A [...] CHIROPRACTIC REPORT Observed: 04/09/2018 Status: F Source: [place] 3:35 PM [facility] [address] [place] [address] OFFICE VISIT Date of Service: 04/08/18 MR#: [id number] Acct: [id number] Name: GAYLE CHO Rep #: [id number] : 1950 Provider: Jenny Ross D.C. Age/Sex: 68/F [place] [facility] [place]: Signed Intake Vital Signs04/08/18 Height 5 [...] unit PO DAILY 02/04/18 [History Confirmed 02/04/18] [facility] Medical History Facet arthropathy, lumbar (Chronic) Acute [...] Additional Codes Procedures - Manipulation: 3-4 regions (95737) 04/09/18 1535 <Electronically signed by Jenny Ross D.C.> Date Jenny Ross D.C. Cosigner Signature: Date (if applicable) CC: CHIROPRACTIC REPORT Observed: 04/04/2018 Status: F Source: [place] 12:58 PM [facility] [address] [place] [address] OFFICE VISIT Date of Service: 04/04/18 MR#: [id number] Acct: [id number] Name: GAYLE CHO Rep #: [id number] : 1950 Provider: Jenny Ross D.C. Age/Sex: 68/F [place] [facility] [place]: Signed Intake Vital Signs04/04/18 Height 5 [...] unit PO DAILY 02/04/18 [History Confirmed 02/04/18] [facility] Medical History Facet arthropathy, lumbar (Chronic) Acute [...] who presents with increased low back pain. Brab states that her pain increased after decorating [...] Additional Codes Procedures - Manipulation: 3-4 regions (80289) 04/04/18 1258 <Electronically signed by Jenny Ross D.C.> Date Jenny Ross D.C. Cosigner Signature: Date (if applicable) CC: CHIROPRACTIC REPORT Observed: 03/18/2018 Status: F Source: [place] 3:28 PM [facility] [address] [place] [address] OFFICE VISIT Date of Service: 03/12/18 MR#: [id number] Acct: [id number] Name: GAYLE CHO Rep #: [id number] : 1950 Provider: Jenny Ross D.C. Age/Sex: 67/F [place] [facility] [place]: Signed Intake Vital Signs03/12/18 Height 5 [...] unit PO DAILY 02/04/18 [History Confirmed 02/04/18] [facility] Medical History Facet arthropathy, lumbar (Chronic) Acute [...] Additional Codes Procedures - Manipulation: 3-4 regions (22425) 03/18/18 1528 <Electronically signed by Jenny Ross D.C.> Date Jenny Ross D.C. Cosigner Signature: Date (if applicable) CC: CHIROPRACTIC REPORT Observed: 02/26/2018 Status: F Source: [place] 8:52 AM [facility] [address] [place] [address] OFFICE VISIT Date of Service: 02/25/18 MR#: [id number] Acct: [id number] Name: GAYLE CHO Rep #: [id number] : 1950 Provider: Jenny Ross D.C. Age/Sex: 67/F [place] [facility] [place]: Signed Intake Vital Signs02/25/18 Height 5 [...] unit PO DAILY 02/04/18 [History Confirmed 02/04/18] [facility] Medical History Facet arthropathy, lumbar (Chronic) Acute [...] Additional Codes Procedures - Manipulation: 3-4 regions (83214) 02/26/18 0852 <Electronically signed by Jenny Ross D.C.> Date Jenny Ross D.C. Cosigner Signature: Date (if applicable) CC: CHIROPRACTIC REPORT Observed: 02/14/2018 Status: F Source: [place] 2:14 PM [facility] [address] [place] [address] OFFICE VISIT Date of Service: 02/14/18 MR#: [id number] Acct: [id number] Name: GAYLE CHO Rep #: [id number] : 1950 Provider: Jenny Ross D.C. Age/Sex: 67/F [place] [facility] [place]: Signed Intake Vital Signs02/14/18 Height 5 [...] unit PO DAILY 02/04/18 [History Confirmed 02/04/18] [facility] Medical History Facet arthropathy, lumbar (Chronic) Acute [...] Additional Codes Procedures - Manipulation: 3-4 regions (60516) 02/14/18 1414 <Electronically signed by Jenny Ross D.C.> Date Jenny Ross D.C. Cosigner Signature: Date (if applicable) CC: CHIROPRACTIC REPORT Observed: 02/11/2018 Status: F Source: [place] 1:15 PM [facility] [address] [place] [address] OFFICE VISIT Date of Service: 02/11/18 MR#: [id number] Acct: [id number] Name: GAYLE CHO Rep #: [id number] : 1950 Provider: Jenny Ross D.C. Age/Sex: 67/F [place] [facility] [place]: Signed Intake Vital Signs02/11/18 Height 5 [...] unit PO DAILY 02/04/18 [History Confirmed 02/04/18] [facility] Medical History Facet arthropathy, lumbar (Chronic) Acute [...] Additional Codes Procedures - Manipulation: 3-4 regions (38601) 02/11/18 1315 <Electronically signed by Jenny Ross D.C.> Date [facility]: Date (if applicable) CC: CHIROPRACTIC REPORT Observed: 02/04/2018 Status: F Source: [place] 1:31 PM [facility] [address] [place] [address] OFFICE VISIT Date of Service: 02/04/18 MR#: [id number] Acct: [id number] Name: MIKHAILGRANTGAYLE Cruz Rep #: [id number] : 1950 Provider: Jenny Ross D.C. Age/Sex: 67/F [place] [facility] [place]: Signed Intake Vital Signs02/04/18 Height 5 ft 02/04/18 Weight: 157 lb 09/17/18 Body Mass Index (BMI) 30.7 Intake Visit [...] signed by Jenny Ross D.C.> Date Jenny Vandana Hooks Signature: Date (if applicable) CC: Observed: 02/01/2018 Status: C Source: [place] RESPIRATORY PANEL 12:46 PM [facility] MOLECULAR REPOSITORY RP PANEL Normal Reference Range = Not Detected RESULTS CALLED TO DR CHACON NURSE LINE02/01/18 7098 Suzanne Isaac. REPORT READ BACK BY NO [...] 1: RHINOVIRUS Performed By: #### M100.638 #### [facility] [address] [facility] [place], [address] ABD INC DECUB Observed: 01/16/2018 Status: F Source: [place] AND/OR ERECT 1:09 PM [facility] REPOSITORY [facility] Imaging Services [address] [place] [address] Abd Inc Decub and/or Erect MR#: [id number] Acct: [id number] Name: GAYLE CHO Rep #: [id number] : 1950 F 67 From: Debra Vega MD PCP: Mikhail Chacon MD, Chi Status: REG CLI Study: Abd Inc Decub and/or Erect Date of Exam: 01/16/18 Exam# [id number] Ordering Dr: Mikhail Chacon MD STUDY: X-RAY [...] Vega MD at 23:52 EDT Tel Direct: [phone], Service support , CC: Mikhail Chacon MD [employer] Ribbon Machine Operator: Signed CBC W/DIFF, AUTOMATED Collected: 10/17/2017 Status: F Source: [place] 3:57 PM [facility] REPOSITORY TYPE CODE TESTS RESULT OUT OF [...] Lymph 3.16 Performed By: #### L100.0100 #### [facility] [address] [facility] [place], [place], [address] VITAMIN D,25 HYDROXY Collected: 10/17/2017 Status: F Source: [place] 3:57 PM [facility] REPOSITORY TYPE CODE TESTS RESULT OUT OF REFERENCE UNITS RANGE LAB L506.1000 29.95-100.01 ng/mL Low Vitamin D 21.9 25-OH Result Comment: Vitamin D 25(OH) Status Range Deficiency <20 ng/mL (50nmol/L) Insuffciency 20 - 30 ng/mL (50 - 75 nmol/L) Sufficiency 30 - 100 ng/mL (75 - 250 nmol/L) Toxicity >100 ng/mL (>250 nmol/L) Performed By: #### L506.1000 #### [facility] [address] [facility] [place], [address] COMPREHENSIVE METABOLIC Collected: 10/17/2017 Status: F Source: [facility] 3:57 PM [facility] REPOSITORY TYPE CODE TESTS RESULT OUT OF [...] 6 Performed By: #### L500.4050, L501.9520 #### [facility] [address] [place], [place], [address] THYROID STIM HORMONE Collected: 10/17/2017 Status: F Source: [place] (TSH) 3:57 PM [facility] REPOSITORY TYPE CODE TESTS RESULT OUT OF RANGE REFERENCE UNITS LAB L501.9520 0.358-3.74 uIU/mL Normal TSH 1.06 Performed By: #### L500.4050, L501.9520 #### [facility] [place], [address] OBSOLETE Observed: 10/03/2017 Status: COMPLETED Source: [place] 12:00 AM CL[facility]IC OTHER [facility]AMPUS REPOSITORY Refill (AGCARDWST) GAYLE CHO ([id number]) 1950 F Date Time Provider Department 10/03/17 JESS PERDOMO AGCARJUNWST During your visit today, we recorded the [...] 10/04/17 OBSOLETE Observed: 09/13/2017 Status: COMPLETED Source: [place] 12:00 AM [facility] OTHER [facility]AMP[facility] REPOSITORY Refill (AGCARDWST) MARQUISGAYLE ([id number]) 1950 F Date Time Provider Department 09/13/17 JESS PERDOMOWSIsmael During your visit today, we recorded the [...] 09/13/17 PROGRESS Observed: 08/14/2017 Status: COMPLETED Source: [place] 3:12 PM [facility] OTHER CAMPUS REPOSITORY O ID: [id number] Author: Jess Perdomo Service: (none) Author Type: Physician Type: Progress Notes Filed: 08/15/2017 9:16 AM Note Text: PERTINENT CARDIAC HISTORY ASHD - s/p PCI 03/01, 10/31 HTN HL DM DC - CPAP ADHERENCE TO GUIDELINES CHRISTIANO-I or ARB for HF with prior LVEF<40 (NQF 0081) - N/A ASA or Plavix for ASHD (NQF 0067) - met Beta xochitl for ASHD with prior [place] or prior LVEF<40 (NQF 0070) - N/A [...] MD CNOV Observed: 08/14/2017 Status: COMPLETED Source: [place] 2:30 PM [facility] OTHER [facility] REPOSITORY Office Visit (AGCARDWST) GAYLE CHO ([id number]) 1950 F Date Time Provider Department 08/14/17 2:30 PM JESS PERDOMOWSIsmael During your visit today, we recorded the [...] met Beta xochitl for ASHD with prior [place] or prior LVEFANDlt;40 (NQF 0070) - N/A [...] the following areas and commit to making lobsterman changes. EAT A WHOLE FOOD, PLANT BASED [...] in your area. Referring Provider: JESS PERDOMO [[id number]] Allergies As of Date: 08/14/2017 Noted Allergy Reaction ANTIHISTIMINE 01/10/2017 5 - Intolerance Comments: Heart racing/palpitations ENALAPRIL 08/09/2007 14 - Other: See Comments Comments: Muscle myalgias LOPRESSOR (METOPROLOL TARTRATE) 08/09/2007 14 - Other: See Comments Comments: Muscle myalgias PENICILLINS 08/09/2007 2 - Rash SYNTHROID (LEVOTHYROXINE SODIUM) 08/09/2007 14 - Other: See Comments Comments: Fatigue and jittery Date Reviewed: 08/14/2017 Reviewed by: Kenyetta (Evert) Mary - Fully Assessed Reason for Visit: Recheck [92] Primary Visit Diagnosis:Hypertension, essential [I10] Other Visit Diagnosis:ASHD (arteriosclerotic heart disease) [I25.10] Order(s):ECG B/O W INTERP (MED OFFICE) [ECG06] Order #: [id number] Prescriptions as of 08/14/2017 Sig: LOSARTAN 50 [...] the following areas and commit to making long-term changes. EAT A WHOLE FOOD, PLANT BASED [...] CODE NAME / CODE REACTION SEVERITY SOURCE DRUG/[id number](SNO ANTIHISTIMINE INTOLERANCE [place] [address]) Clinic Other [place] Repository Miscellaneous ANESTETICS Swelling Unknown [place] 4 Allergy/434182996( [facility] SNOMED CT) Hospital Repository DRUG ENALAPRIL OTHER: SEE [facility] 8 INGREDI/011515023( Clinic Other SNOMED CT) [place] Repository DRUG METOPROLOL OTHER: SEE [facility] 8 INGREDI/062220421( TARTRATE Clinic Other SNOMED CT) [place] Repository Drug PENICILLINS RASH [place] 8 Class/363429603(SN Clinic Other OMED CT) [place] Repository DRUG LEVOTHYROXINE OTHER: SEE [facility] 8 INGREDI/168092650( SODIUM Clinic Other SNOMED CT) [place] Repository NG/988753534([facility] ANTIHISTIMINE [facility] D CT) Health System Repository NG/426485178([facility] ENALAPRIL [facility] D CT) [facility] System Repository NG/716127857([facility] METOPROLOL [facility] D CT) TARTRATE [facility] Repository NG/153280589([facility] PENICILLINS [facility] D CT) Health System Repository NG/841299524([facility] LEVOTHYROXINE [facility] D CT) SODIUM Health System Repository ENCOUNTERS ENCOUNTERS ADMIT/DISCHARGE ACCOUNT NUMBER ADMITTING ENCOUNTER LOCATION SOURCE CLASS 06/12/2018 [id number] [facility] ding:CT Repository 04/16/2018 [id number] [facility] [facility] ding:POLAB3 Repository 04/16/2018/04/17/20 [id number] Ambulatory [address] Main [place] Repository 04/16/2018 [id number] Ambulatory [facility] MEDICAL Repository CENTERBuildi ng:CAGWS 04/15/2018/04/15/20 [id number] Ambulatory BMSBuilding: [place] 18 BMS.[facility] Repository 04/08/2018/04/08/20 [id number] Ambulatory BMSBuilding: [place] 18 BMS.[facility] Repository 04/04/2018/04/04/20 [id number] Ambulatory BMSBuilding: [place] 18 BMS.[facility] Repository 03/12/2018/03/12/20 [id number] Ambulatory BMSBuilding: [place] 18 BMS.[facility] Repository 02/25/2018/02/26/20 [id number] Ambulatory BMSBuilding: [place] 18 BMS.[facility] Repository 02/14/2018/02/15/20 [id number] Ambulatory BMSBuilding: [place] 18 BMS.[facility] Repository 02/11/2018/02/12/20 [id number] Ambulatory BMSBuilding: [place] 18 BMS.[facility] Repository 02/04/2018/02/05/20 [id number] Ambulatory BMSBuilding: [place] 18 BMS.[facility] Repository 02/01/2018 [id number] Ambulatory [facility] ding:PSN Repository 01/16/2018 [id number] Ambulatory [facility] ding:RAD Repository 10/17/2017 [id number] Ambulatory [facility] ding:POLAB3 Repository 08/14/2017/08/15/19 [id number] Ambulatory [address] Other [place] Repository 08/14/2017/08/15/19 [id number] Ambulatory [address] MEDICAL Repository CENTERBuildi ng:CATE PAYERS PAYERS ENCOUNTER GUARANTOR PAYER SUBSCRIBER SOURCE 06/12/2018 BAKARI Bautista [place] [id number] Insurance:MEDICARE TRUMPHOURDOB: [facility] PART A [facility] [id number] Number: Repository [id number]: ([phone] [id number] [phone] (HP) Date:2018-06-12 06/12/2018 Secondary GAYLE J [place] Insurance:HUMANA TRUMPHOURDOB: [facility] COMMERCIALPolicy [id number] Hospital Number: Repository [id number] Date:5229-08-84PI [address] [place] [address]VS: 06/12/2018 Tertiary NOT GIVENUNK [place] Insurance:SELF PAY [facility] Number: Effective Repository Date:2018-06-12 04/16/2018 BAKARI A Primary GAYLE J [place] [id number] Insurance:MEDICARE TRUMPHOURDOB: [facility] PART A [facility] [id number] Number: Repository [id number]: 330 [id number] [phone] () Date:2018-04-16 04/16/2018 Secondary GAYLE J [place] Insurance:HUMANA TRUMPHOURDOB: [facility] [id number] Hospital Number: Repository [id number] Date:0724-47-14NQ [address] [place] [address]OP: 04/16/2018 Tertiary NOT GIVENUNK [place] Insurance:SELF PAY [facility] Number: Effective Repository Date:2018-04-16 04/16/2018 GAYLE J Primary GAYLE J [facility] TRUMPHOURDOB: Insurance:MEDICARE A TRUMPHOURDOB: [facility] [id number] AND BPolicy Number: [id number] [facility] [id number] [address], [place] Date: [address]Vdx: () 04/16/2018 Secondary GAYLE J [facility] Insurance:HUMANA TRUMPHOURDOB: [facility] MEDICARE [id number] Repository SUPPLEMENTPolicy Number: [id number] Date: 04/15/2018 BAKARI A Primary GAYLE J [place] [id number] Insurance:MEDICARE TRUMPHOURDOB: [facility] PART A [facility] [id number] Number: Repository [address]Han: 330 [id number] [phone] () Date:2018-04-08 04/15/2018 Secondary GAYLE J [place] Insurance:HUMANA TRUMPHOURDOB: [facility] [id number] Hospital Number: Repository [id number] Date:2264-06-30FF [address] [address]NS: 04/15/2018 Tertiary NOT GIVENUNK [place] Insurance:SELF PAY [facility] Number: Effective Repository Date:2018-04-15 04/08/2018 BAKARI A Primary GAYLE J [place] [id number] Insurance:MEDICARE TRUMPHOURDOB: [facility] PART A [facility] [id number], [place] Number: Repository [id number]: 330 [id number] [phone] () Date:2018-04-04 04/08/2018 Secondary GAYLE J [place] Insurance:HUMANA TRUMPHOURDOB: [facility] [id number] Hospital Number: Repository [id number] Date:[id number] [address]WE: 04/08/2018 Tertiary NOT GIVENUNK [place] Insurance:SELF PAY [facility] Number: Effective Repository Date:2018-04-08 04/04/2018 BAKARI A Primary GAYLE J [place] [id number] Insurance:MEDICARE TRUMPHOURDOB: [facility] PART A [facility] [id number] Number: Repository [id number]: 330 [id number] [phone] (HP) Date:2018-04-04 04/04/2018 Secondary GAYLE J [place] Insurance:HUMANA TRUMPHOURDOB: [facility] [id number] Hospital Number: Repository [id number] Date:7815-02-06DY [address] [address]PE: 04/04/2018 Tertiary NOT GIVENUNK [place] Insurance:SELF PAY [facility] Number: Effective Repository Date:2018-04-04 03/12/2018 Bakari A Primary GAYLE J [place] [id number] Insurance:MEDICARE TRUMPHOURDOB: [facility] PART A [facility] [id number] [place] Number: Repository [address]Tim: 330 [id number] [phone] () Date:2018-03-04 03/12/2018 Secondary GAYLE J [place] Insurance:HUMANA TRUMPHOURDOB: [facility] [id number] Hospital Number: Repository [id number] Date:[id number] [address]VW: 03/12/2018 Tertiary NOT GIVENUNK [place] Insurance:SELF PAY [facility] Number: Effective Repository Date:2018-03-12 02/25/2018 Bakari A Primary GAYLE J [place] [id number] Insurance:MEDICARE TRUMPHOURDOB: [facility] A [facility] [id number] Number: Repository [address]Hhm: 330 [id number] [phone] () Date:2018-02-18 02/25/2018 Secondary GAYLE J [place] Insurance:HUMANA TRUMPHOURDOB: [facility] COMMERCIALPolicy [id number] Hospital Number: Repository [id number] Date:[id number] [address]HW: 02/25/2018 Tertiary NOT GIVENUNK [place] Insurance:SELF PAY [facility] Number: Effective Repository Date:2018-02-25 02/14/2018 Bakari A Primary GAYLE J [place] [id number] Insurance:MEDICARE TRUMPHOURDOB: [facility] PART A [facility] [id number], [place] Number: Repository [id number]: 330 [id number] [phone] (HP) Date:2018-02-04 02/14/2018 Secondary GAYLE J [place] Insurance:HUMANA TRUMPHOURDOB: [facility] COMMERCIALPoly [id number] Hospital Number: Repository [id number] Date:[id number] [address]HY: 02/14/2018 Tertiary NOT GIVENUNK [place] Insurance:SELF PAY [facility] Number: Effective Repository Date:2018-02-14 02/11/2018 Bakari A Primary GAYLE J [place] [id number] Insurance:MEDICARE TRUMPHOURDOB: [facility] PART A [facility] [id number], [place] Number: Repository [id number]: 330 [id number] [phone] () Date:2018-02-04 02/11/2018 Secondary GAYLE J [place] Insurance:HUMANA TRUMPHOURDOB: [facility] [id number] Hospital Number: Repository [id number] Date:3072-46-81FA[address] [address]RK: 02/11/2018 Tertiary NOT GIVENUNK [place] Insurance:SELF PAY [facility] Number: Effective Repository Date:2018-02-11 02/04/2018 Bakari A Primary GAYLE J [place] [id number] Insurance:MEDICARE TRUMPHOURDOB: [facility] A [facility] [id number], [place] Number: Repository [id number]: 330 [id number] [phone] (HP) Date:2018-01-18 02/04/2018 Secondary GAYLE J [place] Insurance:HUMANA TRUMPHOURDOB: [facility] [id number] Hospital Number: Repository [id number] Date:4571-82-24IG [address] [address]BY: 02/04/2018 Tertiary NOT GIVENUNK [place] Insurance:SELF PAY [facility] Number: Effective Repository Date:2018-02-04 02/01/2018 Bakari A Primary GAYLE J [place] [id number] Insurance:MEDICARE TRUMPHOURDOB: [facility] PART A [facility] [id number] Number: Repository [address]Bng: 330 [id number] [phone] () Date:2018-02-01 02/01/2018 Secondary GAYLE J [place] Insurance:HUMANA TRUMPHOURDOB: [facility] [id number] Hospital Number: Repository [id number] Date:4343-26-30NA[address] [address]AO: 02/01/2018 Tertiary NOT GIVENUNK [place] Insurance:SELF PAY [facility] Number: Effective Repository Date:2018-02-01 01/16/2018 Bakari A Primary GAYLE J [place] [id number] Insurance:MEDICARE TRUMPHOURDOB: [facility] PART A [facility] [id number] Number: Repository [id number]: 330 [id number] [phone] () Date:2018-01-16 01/16/2018 Secondary GAYLE J [place] Insurance:HUMANA TRUMPHOURDOB: [facility] [id number] Hospital Number: Repository [id number] Date:2172-77-60GH [address] [address]MF: 01/16/2018 Tertiary NOT GIVENUNK [place] Insurance:SELF PAY [facility] Number: Effective Repository Date:2018-01-16 10/17/2017 Bakari A Primary GAYLE J [place] [id number] Insurance:MEDICARE TRUMPHOURDOB: [facility] PART A [facility] [id number] Number: Repository [address]Stk: [id number] [phone] Date:2017-10-17 (HP) 10/17/2017 Secondary GAYLE [place] Insurance:HUMANA TRUMPHOURDOB: [facility] COMMERCIALPoly [id number] Hospital Number: Repository [id number] Date:8155-54-93IU [address] [place] [address]KV: 10/17/2017 Tertiary NOT GIVENUNK [place] Insurance:SELF PAY [facility] Number: Effective Repository Date:2017-10-17 08/14/2017 GAYLE Bautista Primary GAYLE [facility] TRUMPHOURDOB: Insurance:MEDICARE A TRUMPHOURDOB: [facility] [id number] AND BPolicy Number: [id number] [facility] [id number] [address] [place] [address] Date: [address]Ewg: () 08/14/2017 Secondary GAYLE [facility] Insurance:HUMANA TRUMPHOURDOB: [facility] MEDICARE [id number] Repository SUPPLEMENTPolicy Number: [id number] Date:
== END ==
PROVIDERS: Family Provider Family Medicine Geriatric Medicine; PCP Family Medicine Geriatric Medicine; Referring Provider Family Medicine Geriatric Medicine; Visit Provider Family Medicine Geriatric Medicine
DX: N20.0 Calculus of kidney (principal); N39.0 Urinary tract infection, site not specified
CPT/HCPCS: 74176; 87077; 87086; 87088

== ENCOUNTER → 2020-10-28 | Outpatient (CLI) | payer MEDICARE, OTHER, SELFPAY ==
[2018-04-15 14:11] VITALS: BMI 30.7
== END | disposition home or self-care (01) ==
LOC: LABSPEC 16:58
PROVIDERS: PCP Family Medicine Geriatric Medicine; Visit Provider Nurse Practitioner Adult Health
DX: R31.29 Other microscopic hematuria (principal)
CPT/HCPCS: 87077; 87086; 87088

== ENCOUNTER → 2020-11-08 14:36 | Outpatient (CLI) | payer MEDICARE, OTHER, SELFPAY ==
[2018-04-15 14:11] VITALS: BMI 30.7
--- NOTE | 2020-11-08 14:38 | CT_ITS ---
ACR Level 3 findings have been noted. An addendum which confirms receipt of the report will follow. INDICATION: KIDNEY STONE, MICRO HEMATURIA,ABD PAIN EXAMINATION: CT Abdomen And Pelvis W/O Contrast Injection TECHNIQUE: Helically acquired images were obtained of the abdomen and pelvis without the use of IV contrast. A radiation dose optimization technique was used for this scan. Oral contrast: None. COMPARISON: 06/12/2018 FINDINGS: Evaluation of the solid organs and vascular structures is limited without intravenous contrast. Visualized lung bases: Unremarkable Liver: Unremarkable Gallbladder: Contracted. Spleen: Unremarkable Pancreas: Unremarkable Adrenal Glands: Unremarkable Kidneys: There is a questionable 5 mm stone in the right ureterovesical junction with no significant hydroureteronephrosis. There are multiple nonobstructing calculi throughout the right kidney ranging from 4 mm to 1.5 cm. The left kidney is normal. Vasculature: Moderate aortoiliac atherosclerotic disease. GI Tract: Unremarkable Lymphadenopathy: None Peritoneum: No ascites. Bladder: Unremarkable Reproductive organs: Unremarkable Bones/Soft tissues: Mild scattered degenerative changes of the visualized spine. 2 mm anterolisthesis L4 on L5. CT/Abdomen/Pelvis without Cont IMPRESSION: Questionable 5 mm stone in the right ureterovesical junction with no significant hydroureteronephrosis. There are multiple other nonobstructing calculi throughout the right kidney ranging from 4 mm to 1.5 cm. 2 mm anterolisthesis L4 on L5. Electronically Signed: Joseph Huang MD at 16:23 EDT Tel , Service support ,
== END ==
PROVIDERS: PCP Internal Medicine; Referring Provider Nurse Practitioner Adult Health; Visit Provider Nurse Practitioner Adult Health
DX: N20.0 Calculus of kidney (principal); R31.29 Other microscopic hematuria; R10.9 Unspecified abdominal pain; R39.89 Other symptoms and signs involving the genitourinary system
CPT/HCPCS: 74176

== ENCOUNTER → 2020-11-16 13:00 | Outpatient (CLI) | payer MEDICARE, OTHER, SELFPAY ==
[2018-04-15 14:11] VITALS: BMI 30.7
--- NOTE | 2020-11-16 13:06 | EKG12_ITS ---
Test Reason : PRE OP Blood Pressure : / mmHG Vent. Rate : 066 BPM Atrial Rate : 066 BPM P-R Int : 156 ms QRS Dur : 080 ms QT Int : 420 ms P-R-T Axes : 051 018 101 degrees QTc Int : 440 ms Normal sinus rhythm T wave abnormality, consider lateral ischemia Abnormal ECG Confirmed by JENNIFER SWARTZ, EARL ([id number]), general expeditor GILBERTO PARDO ([id number]) on 11/17/2020 10:31:11 AM Referred By: Nirmal Zamora Confirmed By:EARL RODRIGUEZ MD
[2020-11-16 14:57] LABS: Hematocrit 42.7 % (37-47); Hemoglobin 13.9 g/dL (12.0-15.0); Mean Corp Hgb Conc 32.6 g/dL (32-36); Mean Corpuscular Hgb 29.9 pg (27.0-32.0); Mean Corpuscular Volume 91.8 fL (81-99); Platelet Count 221 K/mm3 (150-450); RBC Distribution Width CV 13.5 % (11.6-14.6); RBC Distribution Width SD 45.7 fl (35.1-43.9); Red Blood Count 4.65 M/mm3 (4.2-5.4); White Blood Count 8.4 K/mm3 (4.4-11.0)
[2020-11-16 15:54] LABS: Anion Gap 4 (5-15); BUN 19 mg/dL (7-18); BUN/Creat Ratio 14.3 RATIO (10-20); Calcium,Total 10.1 mg/dL (8.5-10.1); Chloride 105 mmol/L (98-107); Creatinine, Serum 1.33 mg/dL (0.55-1.02); EST Glomerular Filtration Rate 42 mL/min (>60); Est Glom Filt Rate - Afr Amer 50 mL/min (>60); Glucose 151 mg/dL (74-106); Potassium 4.9 mmol/L (3.5-5.1); Sodium Level 140 mmol/L (136-145)
== END ==
PROVIDERS: PCP Internal Medicine; Referring Provider Urology; Visit Provider Urology
DX: Z01.812 Encounter for preprocedural laboratory examination (principal); Z03.818 Encounter for observation for suspected exposure to other biological agents ruled out
CPT/HCPCS: 36415; 80048; 85027; 93005

== ENCOUNTER → 2021-01-05 11:00 | Outpatient (CLI) | payer MEDICARE, OTHER, SELFPAY ==
[2020-12-29 14:33] VITALS: BMI 29.7
--- NOTE | 2021-01-05 11:08 | ECHOD_ITS ---
Reason For Study: CAD/ PRE-OP Procedure This was a 2D Doppler, Color Flow transthoracic echocardiogram. The exam was of adequate technical quality. Exam performed in department. Left Ventricle Normal LV size. Left ventricular systolic function is normal. The estimated ejection fraction is 60 %. There is evidence of diastolic dysfunction. No regional wall motion abnormalities noted. Right Ventricle Normal RV size. Normal systolic function. Atria Normal left atrium. Normal right atrium. No doppler evidence for ASD. Mitral Valve There is no mitral annular calcification. Normal mitral valve. The mitral papillary muscle appears thickened and/or calcified. Mild (1+) mitral valve insufficiency. Tricuspid Valve Normal tricuspid valve. Mild tricuspid valve insufficiency. Right ventricular systolic pressure estimated to be 40 mmHg. Aortic Valve Trisinus/trileaflet aortic valve. Normal aortic valve. Trivial aortic valve insufficiency. Pulmonic Valve The pulmonic valve is not well visualized. Trivial pulmonic valve insufficiency. Great Vessels Normal sized aortic root. Pericardium/Pleural No pericardial effusion. MMode/2D Measurements & Calculations LVIDd: 4.2 cm IVSd: 1.1 cm Ao root diam: 2.9 cm LVIDs: 2.8 cm LVPWd: 1.1 cm RVDd: 3.1 cm FS: 34.0 % LAV(MOD-bp): 38.1 ml LA A4 area: 15.8 cm2 LA dimension(2D): 3.7 cm LAV(MOD-bp) Indexed: 23.0 ml/m2 LAV(MOD-sp2): 33.7 ml LAV(MOD-sp4): 41.1 ml RA A4 area: 10.1 cm2 Time Measurements MV dec time: 0.20 sec Doppler Measurements & Calculations MV E max jelani: 70.3 cm/sec Lat Peak E' Jelani: 5.0 cm/sec Med Peak E' Jelani: 2.8 cm/sec MV A max jelani: 89.7 cm/sec E/E' lat: 14.0 E/E' med: 25.3 MV E/A: 0.78 Ao V2 max: 114.6 cm/sec LV V1 max: 80.5 cm/sec PA V2 max: 93.2 cm/sec Ao max P.3 mmHg LV V1 max P.6 mmHg TR max jelani: 303.5 cm/sec TR max P.8 mmHg ECHO/Echo Complete Interpretation Summary Left ventricular systolic function is normal. The estimated ejection fraction is 60 %. The mitral papillary muscle appears thickened and/or calcified. Mild (1+) mitral valve insufficiency. Mild tricuspid valve insufficiency. Trivial aortic valve insufficiency. Trivial pulmonic valve insufficiency. Right ventricular systolic pressure estimated to be 40 mmHg. There is evidence of diastolic dysfunction. Ordering Physician: Usama Chi Referring Physician: JESSICA CLARK Performed By: Aletha Ruiz, RDCS, RVT
== END ==
PROVIDERS: PCP Internal Medicine; Referring Provider Internal Medicine Cardiovascular Disease; Visit Provider Internal Medicine Cardiovascular Disease
DX: I25.10 Atherosclerotic heart disease of native coronary artery without angina pectoris (principal)
CPT/HCPCS: 93306

== ENCOUNTER 2021-02-22 15:21 | Observation (INO) | payer MEDICARE, OTHER, SELFPAY ==
[2021-02-22 15:25] VITALS: BP 179/71; PULSE 61; RESP 22; TEMP 37.1; O2SAT 94; BMI 30.9
--- NOTE | 2021-02-22 15:50 | EKG12_ITS ---
Test Reason : SOB Blood Pressure : / mmHG Vent. Rate : 063 BPM Atrial Rate : 063 BPM P-R Int : 154 ms QRS Dur : 078 ms QT Int : 432 ms P-R-T Axes : 059 026 066 degrees QTc Int : 442 ms Normal sinus rhythm Normal ECG Confirmed by ANAM SWARTZ, CHIKIS ([id number]), advertising editor GILBERTO PARDO ([id number]) on 02/28/2021 9:38:13 A M Referred By: JAREN Confirmed By:LAURA MENDIETA MD
--- NOTE | 2021-02-22 15:51 | EX.ED.DYSGE1 ---
HPI History of Present Illness Chief Complaint: Weakness Detail of Chief Complaint: Generalized weakness, cough, and fever Informant: patient Narrative Narrative: Patient presents to the emergency department stating that she has been sick for about 3 weeks. Patient started having cough and Covid symptoms about February 07. Her is currently hospitalized with COVID-19. Patient is not immunized against COVID-19. Patient states she does not want the Covid vaccine. Patient complains of chest pain with cough. Cough mostly nonproductive. Initially she did have loss of taste and smell. Patient also had intermittent vomiting and diarrhea. She denies urinary symptoms. Patient states that she had been on Zithromax recently. Prior similar symptoms: No PFSH PFS Medical History (Updated 02/22/21 @ 17:[address] Tracee Morrison, ) Acute biliary pancreatitis Arthritis Atherosclerotic heart disease of [place] coronary artery without angina pectoris CKD (chronic kidney disease) stage 3, GFR 30-59 ml/min Diabetes Essential hypertension Facet arthropathy, lumbar GERD (gastroesophageal reflux disease) Heart murmur High cholesterol High triglycerides History of chest pain HLD (hyperlipidemia) Hypertension Hypothyroidism Kidney stones Osteoarthritis Parathyroid abnormality Presence of stent in coronary artery (~10/29/12) Type 2 diabetes mellitus Home Medications aspirin 81 mg PO DAILY@0800 08/03/16 [History Last Taken 02/21/21] levothyroxine 100 mcg tablet 100 mcg PO DAILY 12/28/20 [History Last Taken 02/22/21] nitroglycerin 0.4 mg sublingual tablet 0.4 mg SUBLINGUAL Q5-15M PRN 12/28/20 [History Last Taken Unknown] alprazolam 0.5 mg tablet 0.25 mg PO DAILY PRN tab 12/29/20 [History Last Taken Unknown] cholecalciferol (vitamin D3) 25 mcg (1,000 unit) tablet 25 mcg PO DAILY 12/29/20 [History Last Taken 02/22/21] losartan 50 mg tablet 25 mg PO BID tab 12/29/20 [History Last Taken 02/22/21] pravastatin 40 mg tablet 20 mg PO QHS tab 12/29/20 [History Last Taken 02/21/21] carvedilol 12.5 mg PO BID 02/22/21 [History Last Taken 02/22/21] Allergy/AdvReac Type Severity Reaction Status Date / Time Penicillins Allergy Severe Rash Verified 02/22/21 15:27 Iodinated Contrast Media Allergy Anaphylaxis Verified 02/22/21 17:00 Antihistamines - Alkylamine AdvReac Unknown heart Verified 02/22/21 15:27 racing enalapril AdvReac Unknown myalgias Verified 02/22/21 15:27 levothyroxine sodium AdvReac Unknown fatigue Verified 02/22/21 15:27 [From Synthroid] metoprolol [From Lopressor] AdvReac Unknown myalgias Verified 02/22/21 15:27 ANESTETICS Allergy Swelling Uncoded 02/22/21 15:27 Family History Other Heart disease Surgical History History of tonsillectomy Presence of coronary angioplasty implant and graft (~10/29/12) Social History Smoking Status: Current some day smoker tobacco type: cigarettes alcohol intake: never substance use type: does not use caffeine: Yes Type: carbonated beverages, coffee and tea what type of physical activity do you participate in: none ROS ROS ED Constitutional Constitutional ED: Reports systems reviewed and no addt'l complaints, except as documented; Denies body ache(s), change in weight or chills Eyes Eyes: Denies acute decrease in peripheral vision, change in vision, double vision or loss of vision ENT ENT ED: Reports none; Denies ear pain, lip swelling, loss taste/smell, neck pain, otalgia or sore throat Cardiovascular Cardiovascular: Reports none; Denies abdominal pain, chest pain with activity, leg edema, lightheadedness, palpitations, rapid heart rate or syncope Respiratory/Chest Respiratory/Chest: Reports none, cough and dyspnea; Denies change in mental status, dry cough, hemoptysis, shortness of breath at rest or shortness of breath with exertion Gastrointestinal Gastrointestinal: Reports none; Denies abdominal pain, change in stool character, diarrhea, hematemesis, hematochezia, melena, rectal bleeding or vomiting Genitourinary Genitourinary ED: Reports none; Denies abdominal discomfort, anuria, dysuria, genital pain or polyuria Musculoskeletal Musculoskeletal: Reports none; Denies arthralgias, back pain, difficulty walking, extremity pain, muscle weakness or myalgias Integumentary Reports none; Denies abscess or rash Neurologic Neurologic: Reports none and weakness; Denies abnormal gait, confusion, focal weakness, frequent falls, headache(s), loss of vision, numbness, paresthesias, radicular pain or vertigo Psychiatric Psychiatric: Reports systems reviewed and no addt'l complaints, except as documented and none; Denies behavioral changes, confusion, difficulty concentrating, hallucinations, suicidal ideation, tactile hallucinations or visual hallucinations Endocrine Endocrinology: Denies none, cold intolerance, excessive sweating, fatigue or heat intolerance Hematologic/Lymphatic Hematologic/Lymphatic: Reports none; Denies anemia, easy bleeding or easy bruising Allergic/Immunologic Allergic/Immunologic ED: Denies as per HPI, none, lip swelling, mouth swelling, throat swelling, tongue swelling or hives EXAM Physical Exam Const Vital Signs: 02/22/21 15:25 02/22/21 15:31 Temperature 98.8 F Temperature Source Temporal Pulse Rate 61 Respiratory Rate 22 H Respiratory Pattern Tachypnea Blood Pressure 179/71 H Blood Pressure Mean 107 Pulse Ox 94 Oxygen Delivery Method Room Air Positive well nourished and well developed General Appearance ED: well developed and NAD HEENT Reports TM's clear and moist mucous membranes normocephalic and atraumatic; Negative for trauma or tenderness Tympanic Membrane ED: Yes TM's clear Eyes PERRL and EOMs intact bilaterally General Eye ED: Negative for pale conjunctiva or scleral icterus Neck no lymphadenopathy, supple and no JVD General: Negative for tenderness Chest Wall inspection of chest normal and palpation of chest normal Chest: Negative for tenderness Resp normal respiratory effort and clear to auscultation bilaterally Effort and Inspection: Negative for respiratory distress or pain with movement Auscultation: Negative for rhonchi, wheezes or diminished lung sounds Cardio regular rate, regular rhythm, S1 normal heart sound, S2 normal heart sound and no murmurs Peripheral Pulses: pulses 2+ throughout GI normal to inspection, nondistended, normoactive bowel sounds, soft to palpation, non-tender, non-distended and no masses Back/Spine no CVA tenderness and no thoracic nor lumbar tenderness Extremity normal to inspection General Extremety ED: Negative for edema General Extremity: Negative for edema Neuro oriented x3, CN's II-XII intact bilaterally, no sensory deficits noted and gait normal Sensorium / Orientation: awake, alert, oriented to person, oriented to place and oriented to time Motor Exam: strength 5/5 throughout and strength abnormal Psych mental status grossly normal Skin no rashes or lesions noted and no wounds MDM MDM MDM Narrative Medical decision making narrative: Results discussed with patient. Patient noted on x-ray to have bilateral infiltrates and I suspect likely Covid pneumonia. Her was admitted with Covid earlier today. Patient refused PCR testing however did allow for rapid Covid testing and that results pending. Patient was noted to have an elevated D-dimer and we ordered a CTA of the chest however she and then informed us that she is allergic to contrast dye. I asked if she had ever had the contrast dye after being premedicated and she states that she is allergic to antihistamines. Her allergies to contrast dyes that she is anaphylactic in her lip and tongue swell. I discussed case with hospitalist will evaluate patient for admission. I was asked to obtain venous Dopplers of both lower extremities which are pending. Patient was started on Decadron. Lab Data Attestation: I reviewed the patient's lab results. Labs: Laboratory Results - last 24 hr 02/22/21 02/22/21 02/22/21 15:35 15:35 15:35 WBC 5.4 RBC 3.95 L Hgb 11.8 L Hct 36.6 L MCV 92.7 MCH 29.9 MCHC 32.2 RDW Std Deviation 48.6 H RDW Coeff of [place] 14.1 Plt Count 171 MPV 10.2 Immature Gran % (Auto) 0.400 Neut % (Auto) 62.4 Lymph % (Auto) 26.6 [place] % (Auto) 10.4 H Eos % (Auto) 0.0 Baso % (Auto) 0.2 Absolute Neuts (auto) 3.4 Absolute Lymphs (auto) 1.43 Nucleated RBC % 0 D-Dimer Quant (PE/DVT) 1.06 H* Sodium 137 Potassium 3.8 Chloride 103 Carbon Dioxide 28.0 Anion Gap 6 BUN 19 H Creatinine 1.48 H Estim Creat Clear Calc 24.68 Est GFR (MDRD) Af Amer 45 L Est GFR (MDRD) Non-Af 37 L BUN/Creatinine Ratio 12.8 Glucose 103 Lactic Acid Calcium 8.3 L Troponin I High Sens 13 02/22/21 16:06 WBC RBC Hgb Hct MCV MCH MCHC RDW Std Deviation RDW Coeff of [place]le[place]ane Plt Count MPV Immature Gran % (Auto) Neut % (Auto) Lymph % (Auto) [place] % (Auto) Eos % (Auto) Baso % (Auto) Absolute Neuts (auto) Absolute Lymphs (auto) Nucleated RBC % D-Dimer Quant (PE/DVT) Sodium Potassium Chloride Carbon Dioxide Anion Gap BUN Creatinine Estim Creat Clear Calc Est GFR (MDRD) Af Amer Est GFR (MDRD) Non-Af BUN/Creatinine Ratio Glucose Lactic Acid 0.8 Calcium Troponin I High Sens Radiography Chest X-Ray - ED: 1 View Diagnostic Testing: Radiology Impression Chest X-Ray 02/22/21 15:56 IMPRESSION: Bilateral pneumonia. Electronically Signed: Hank Nava MD at 16:15 EDT Tel , Service support , 1 view chest x-ray obtained interpreted by myself as bilateral infiltrates. Radiology in agreement. EKG Initial EKG: Attestation: I personally reviewed and interpreted this EKG as follows: Comments: Sinus rhythm with a ventricular rate of 63 bpm with no acute ST segment changes Discharge Plan Triage Chief Complaint: Weakness ED Provider: Tracee Morrison Dx/Rx/DC Orders Clinical Impression: 2019 novel coronavirus-infected pneumonia (NCIP), Hypoxemia, Weakness Prescriptions: No Action alprazolam 0.5 mg tablet 0.25 mg PO DAILY PRN (Reason: Anxiety) RF: 0 cholecalciferol (vitamin D3) 25 mcg (1,000 unit) tablet 25 mcg PO DAILY RF: 0 levothyroxine 100 mcg tablet 100 mcg PO DAILY RF: 0 nitroglycerin 0.4 mg tablet, sublingual 0.4 mg sublingual Q5-15M PRN (Reason: Chest Pain) RF: 0 pravastatin 40 mg tablet 20 mg PO QHS RF: 0 aspirin 81 MG tablet 81 mg PO DAILY@0800 RF: 0 losartan [Cozaar] 50 mg tablet 25 mg PO BID RF: 0 carvedilol 25 mg tablet 12.5 mg PO BID RF: 0 Primary Care Provider: Gema Laura Referrals: Gema Laura MD [Primary Care Provider] - Disposition Disposition: Acute Care [facility]
--- NOTE | 2021-02-22 15:56 | RAD_ITS ---
STUDY: X-RAY CHEST REASON FOR EXAM: Female, 70 years old. cough TECHNIQUE: Single AP portable view of the chest. COMPARISON: 08/03/2016 FINDINGS: Patchy alveolar opacities in both lungs consistent with bilateral pneumonia. There is no demonstrated pleural abnormality. Normal size heart. Normal mediastinum and олег. Normal visualized pulmonary arteries. Normal visualized aortic arch and descending thoracic aorta. Normal visualized thoracic spine. Normal visualized ribs, clavicles, and shoulders. There is no demonstrated abnormality of the visualized soft tissue structures of the upper abdomen. RAD/Chest 1 View (Portable) IMPRESSION: Bilateral pneumonia. Electronically Signed: Hank Nava MD at 16:15 EDT Tel , Service support ,
[2021-02-22 16:08] LABS: Absolute Lymphocyte Count 1.43 X10^3/uL (0.83-4.51); Absolute Neutrophil Count 3.4 X10^3/uL (2.0-7.7); Basophil# 0.01 X10^3/uL; Basophil% 0.2 % (0-1); Hematocrit 36.6 % (37-47); Hemoglobin 11.8 g/dL (12.0-15.0); Lymphocyte # 1.43 X10^3/ul (0.83-4.51); Lymphocyte % 26.6 % (19-41); Mean Corp Hgb Conc 32.2 g/dL (32-36); Mean Corpuscular Hgb 29.9 pg (27.0-32.0); Mean Corpuscular Volume 92.7 fL (81-99); Mean Platelet Vol. 10.2 fl (6.2-12.0); Monocyte# 0.56 X10^3/uL; Monocyte% 10.4 % (0-10); NRBC Flagged by Analyzer 0 % (0-5); Neutrophil # 3.36 X10^3/uL (2.7-7.7); Neutrophil % 62.4 % (47-70); Platelet Count 171 K/mm3 (150-450); RBC Distribution Width CV 14.1 % (11.6-14.6); RBC Distribution Width SD 48.6 fl (35.1-43.9); Red Blood Count 3.95 M/mm3 (4.2-5.4); White Blood Count 5.4 K/mm3 (4.4-11.0)
[2021-02-22 16:25] LABS: Anion Gap 6 (5-15); BUN 19 mg/dL (7-18); BUN/Creat Ratio 12.8 RATIO (10-20); Calcium,Total 8.3 mg/dL (8.5-10.1); Chloride 103 mmol/L (98-107); Creatinine, Serum 1.48 mg/dL (0.55-1.02); EST Glomerular Filtration Rate 37 mL/min (>60); Est Glom Filt Rate - Afr Amer 45 mL/min (>60); Estimated Creatinine Clearance 24.68 ml/min; Glucose 103 mg/dL (74-106); Potassium 3.8 mmol/L (3.5-5.1); Sodium Level 137 mmol/L (136-145); Troponin-I HS 13 pg/mL (3.0-54.0)
[2021-02-22 16:36] LABS: D-Dimer Quantitative (DVT/PE) 1.06 FEU/ug/m (0.27-0.49)
[2021-02-22 16:45] LABS: Lactic Acid 0.8 mmol/L (0.4-1.9)
--- NOTE | 2021-02-22 17:21 | NURSING ---
MED SURG WHITE WEAKNESS, HYPOXIA, SUSPECT COVID PNEUMONIA
--- NOTE | 2021-02-22 17:24 | US_ITS ---
STUDY: VENOUS DOPPLER ULTRASOUND - BILATERAL LOWER EXTREMITY REASON FOR EXAM: Female, 70 years old. LEG PAIN AND SWELLING PER PT SOB WITH COVID TECHNIQUE: Ultrasound evaluation of the deep vein system to include choi-scale imaging and compression was performed. Choi-scale imaging and Doppler sonographic evaluation, including duplex spectral analysis and qualitative color flow sonography, was performed. COMPARISON: None. FINDINGS: Common Femoral Vein: Normal compression, spontaneity and augmentation. Normal color Doppler. Common Femoral Vein/Greater Saphenous Junction: Normal compression, spontaneity and augmentation. Normal color Doppler. Superficial Femoral Proximal: Normal compression, spontaneity and augmentation. Normal color Doppler. Superficial Femoral Middle: Normal compression, spontaneity and augmentation. Normal color Doppler. Superficial Femoral Distal: Normal compression, spontaneity and augmentation. Normal color Doppler. Popliteal Vein: Normal compression, spontaneity and augmentation. Normal color Doppler. Posterior Tibial Vein: Normal compression, spontaneity and augmentation. Normal color Doppler. Peroneal Vein: Normal compression, spontaneity and augmentation. Normal color Doppler. There is no demonstrated deep venous thrombosis. US/Venous Duplex Imag/Ricardo Extrem IMPRESSION: There is no demonstrated deep venous thrombosis. Please see technologist report in PACS for further details for their impression/ worksheet/ details/ etc. Electronically Signed: Perry Boyd MD at 18:24 EDT , Service support ,
[2021-02-22] MEDS: dexAMETHasone 4 MG Tablet 6 MG PO (17:34)
--- NOTE | 2021-02-22 17:40 | HP.PCM.HOS_ITS ---
HPI - General General Date of Admission: 02/22/21 Date of Service: 02/22/21 Chief Complaint: COVID sxs, worsening hypoxia HPI Narrative The patient is a 70 y/o F w/ PMHx: HTN, HLD, Obesity, CAD s/p PCI, DC not using CPAP, Anxiety and Depression, MVP, Hypothyroidism who presents to the [facility] ED on 02/22/21 with history of onset COVID type symptoms including fever, chills, headache, sore throat, body aches, cough, dyspnea, nausea without emesis, diarrhea, altered sense of taste and smell starting 02/07/2021 with no Covid testing prior to current presentation, progressively worsening with her admitted recently for Covid pneumonia with hypoxia prompting eventual ED presentation secondary to severity of fatigue, weakness and ongoing worsening dyspnea. Patient is unvaccinated against Covid. Work-up in the ED included T 100.6, HR 65, BP 185/66, RR 21 93-94% on RA however did decrease to 89% while in the bed at rest, up and moving patient oxygenation improved to 97% on RA, CBC w/ WBC 5.4, Hgb 11.8, Plts 171 with no shift, D-dimer 1.06, CMP w/ BUN/Cr 19/1.48, LA 0.8, trop high sensitivity 13, COVID PCR positive, CXR w/ bilateral pneumonia, pending venous duplex upon evaluation as patient refused CTPA even with pre-medication. [facility] Medical History (Updated 02/22/21 @ 18:[address] Eva Childs MD) Acute biliary pancreatitis Arthritis Atherosclerotic heart disease of [place] coronary artery without angina pectoris Atrial fibrillation CKD (chronic kidney disease) stage 3, GFR 30-59 ml/min Essential hypertension Facet arthropathy, lumbar GERD (gastroesophageal reflux disease) Heart murmur High cholesterol High triglycerides History of chest pain HLD (hyperlipidemia) Hypertension Hypothyroidism Irregular heart beat Kidney stones Myocardial infarct Osteoarthritis Parathyroid abnormality Presence of stent in coronary artery (~10/29/12) Home Medications aspirin 81 mg PO DAILY@0800 08/03/16 [History Last Taken 02/21/21] levothyroxine 100 mcg tablet 100 mcg PO DAILY 12/28/20 [History Last Taken 02/22/21] nitroglycerin 0.4 mg sublingual tablet 0.4 mg SUBLINGUAL Q5-15M PRN 12/28/20 [History Last Taken Unknown] alprazolam 0.5 mg tablet 0.25 mg PO DAILY PRN tab 12/29/20 [History Last Taken Unknown] cholecalciferol (vitamin D3) 25 mcg (1,000 unit) tablet 25 mcg PO DAILY 12/29/20 [History Last Taken 02/22/21] losartan 50 mg tablet 25 mg PO BID tab 12/29/20 [History Last Taken 02/22/21] pravastatin 40 mg tablet 20 mg PO QHS tab 12/29/20 [History Last Taken 02/21/21] carvedilol 12.5 mg PO BID 02/22/21 [History Last Taken 02/22/21] Allergy/AdvReac Type Severity Reaction Status Date / Time Penicillins Allergy Severe Rash Verified 02/22/21 15:27 Iodinated Contrast Media Allergy Anaphylaxis Verified 02/22/21 17:00 Antihistamines - Alkylamine AdvReac Unknown heart Verified 02/22/21 15:27 racing enalapril AdvReac Unknown myalgias Verified 02/22/21 15:27 levothyroxine sodium AdvReac Unknown fatigue Verified 02/22/21 15:27 [From Synthroid] metoprolol [From Lopressor] AdvReac Unknown myalgias Verified 02/22/21 18:39 ANESTETICS Allergy Swelling Uncoded 02/22/21 15:27 Family History (Updated 02/22/21 @ 19:[address] Eva Childs MD) Mother Heart disease Hypertension HLD (hyperlipidemia) Father Cancer Patient states spider cancer. Surgical History History of tonsillectomy Presence of coronary angioplasty implant and graft (~10/29/12) Social History (Updated 02/22/21 @ 19:[address] Eva Childs MD) household members: spouse Smoking Status: Current every day smoker tobacco type: cigarettes Smoking packs per day: 0.5 Smoking cigarettes per day: 10.0 how long ago did patient quit smoking: Ongoing tobacco use since teenager, 05/22 ppd. alcohol intake: never substance use type: does not use caffeine: Yes Type: carbonated beverages, coffee and tea what type of physical activity do you participate in: none ROS ROS Narrative Admission Review of Systems: CONSTITUTIONAL: No weight loss, + fever, chills, weakness or fatigue. HEENT: + Headache, sore throat. Eyes: No visual loss, blurred vision, double vision or yellow sclerae. Ears, Nose, Throat: No hearing loss, sneezing. SKIN: No rash or itching, lesions, wounds. CARDIOVASCULAR: No chest pain, chest pressure or chest discomfort, palpitations, edema, orthopnea, syncopal events. RESPIRATORY: + shortness of breath, cough without sputum, wheezing, No hemoptysis. GASTROINTESTINAL: + anorexia, nausea without vomiting, diarrhea, abdominal pain, No melena, BRBPR. GENITOURINARY: No dysuria, frequency, urgency or retention. NEUROLOGICAL: + headache, No dizziness, syncope, paralysis, ataxia, numbness or tingling in the extremities, focal weakness, change in bowel or bladder control, seizure. MUSCULOSKELETAL: + muscle, back pain, joint pain or stiffness. HEMATOLOGIC: + anemia, bleeding or bruising. LYMPHATICS: No enlarged nodes. No history of splenectomy. PSYCHIATRIC: + history of depression or anxiety. ENDOCRINOLOGIC: No reports of sweating, cold or heat intolerance. No polyuria or polydipsia. ALLERGIES: No history of asthma, hives, eczema or rhinitis. Vital Signs Vital Signs Vital Signs: 02/22/21 15:25 02/22/21 15:31 Temperature 98.8 F Temperature Source Temporal Pulse Rate 61 Respiratory Rate 22 H Respiratory Pattern Tachypnea Blood Pressure 179/71 H Blood Pressure Mean 107 Pulse Ox 94 Oxygen Delivery Method Room Air Weight Weight: 158 lb 4.67 oz Body Mass Index (BMI) 30.9 Physical Exam Narrative Physical Examination: General: Awake, alert, oriented x 3 and cooperative, seated upright in the ED bed in no apparent distress, fatigued, ill-appearing. Skin: Normal color, normal turgor, no icterus, no cyanosis. HEENT: AT/NC, EOMI, PERRLA, moderately dry MM, no carotid bruits or JVD noted. Lungs: Diminished, tight, occasional end expiratory wheeze, mildly increased respiratory rate but no evidence of any distress, no rales or rhonchi. Heart: Regular rate and rhythm; no gallop, rub audible. Abdomen: Soft, overweight, mild generalized discomfort with palpation with no rebound or guarding, no obvious distention, mildly hyperactive bowel sounds, no obvious HSM. Extremities: No cyanosis, clubbing, or edema. No discomfort to palpation of bilateral calf Neurological: Patient awake, alert, oriented as noted, cognitive function intact; pupils equally reactive to light and accommodation, cranial nerves II- XII grossly normal, moving all 4 extremities, no focal deficits, strength moderately to severely global decrease secondary to acute presentation. Psychiatric: Affect appears fatigued, ill-appearing, no acute evidence of depressive or anxiety feelings. Results Lab / Micro Data Result Diagrams: 02/22/21 15:35 02/22/21 15:35 Labs: Laboratory Results - last 24 hr 02/22/21 15:35: WBC 5.4, RBC 3.95 L, Hgb 11.8 L, Hct 36.6 L, MCV 92.7, MCH 29.9, MCHC 32.2, RDW Std Deviation 48.6 H, RDW Coeff of [place] 14.1, Plt Count 171, MPV 10.2, Immature Gran % (Auto) 0.400, Neut % (Auto) 62.4, Lymph % (Auto) 26.6, [place] % (Auto) 10.4 H, Eos % (Auto) 0.0, Baso % (Auto) 0.2, Absolute Neuts (auto) 3.4, Absolute Lymphs (auto) 1.43, Nucleated RBC % 0 02/22/21 15:35: D-Dimer Quant (PE/DVT) 1.06 H* 02/22/21 15:35: Sodium 137, Potassium 3.8, Chloride 103, Carbon Dioxide 28.0, Anion Gap 6, BUN 19 H, Creatinine 1.48 H, Estim Creat Clear Calc 24.68, Est GFR (MDRD) Af Amer 45 L, Est GFR (MDRD) Non-Af 37 L, BUN/Creatinine Ratio 12.8, Glucose 103, Calcium 8.3 L, Troponin I High Sens 13 02/22/21 16:06: Lactic Acid 0.8 Radiology Impression Chest X-Ray 02/22/21 15:56 IMPRESSION: Bilateral pneumonia. Electronically Signed: Hank Nava MD at 16:15 EDT Tel , Service support , Assessment & Plan Assessment/Plan (1) 2019 novel coronavirus-infected pneumonia (NCIP): (2) Hypoxia: PLAN: The patient is a 70 y/o F w/ PMHx: HTN, HLD, Obesity, CAD s/p PCI, DC not using CPAP, Anxiety and Depression, MVP, Hypothyroidism who presents to the [facility] ED on 02/22/21 with history of onset COVID type symptoms including fever, chills, headache, sore throat, body aches, cough, dyspnea, nausea without emesis, diarrhea, altered sense of taste and smell starting 02/07/2021 with no Covid testing prior to current presentation, progressively worsening with her admitted recently for Covid pneumonia with hypoxia prompting eventual ED presentation secondary to severity of fatigue, weakness and ongoing worsening dyspnea. 1. Acute Hypoxia secondary to Bilateral Pneumonia secondary to Acute Viral Syndrome, COVID-19 with Adult FTT, Debility: Will admit to the [facility] telemetry secondary to difficulties caring for herself with worsening dyspnea, fatigue, also currently hospitalized with COVID, will maintain on oxygen with wean as tolerated to room air, PRN albuterol, HOB, IS parameters w/ pending sput um cultures, respiratory viral panel and urine antigens, procalcitonin, CRP, CPK, Ferritin, LDH, trop and BNP, continue supportive care including q 2 hour turning including prone given no prone bed availability and judicious hydration, closely monitor for worsening status for ARDS and multiorgan failure, will initiate and continue IV decadron x 10 doses, unable to administer remdesivir given timeline of symptoms. Will maintain on therapeutic lovenox pending BL LE duplex US as unable to obtain CTPA. 2. CAD: s/p PCI/MARIAELENA to OM1 and prox CX 10/29/12;PCI/BMS OM1 02/22/12, continue asa, therapeutic lovenox, coreg, statin, not on ACEI/ARB. 3. Hypertension: Continue home regimen including Coreg with hold parameters, PRN hydralazine. 4. Hyperlipidemia: Continue home statin regimen. 5. Hypothyroidism: Continue home synthroid regimen. 6. Anxiety and depression: We will continue low-dose as needed Xanax. 7. DC: Noncompliant with CPAP. 8. Obesity: Weight loss and lifestyle changes encouraged. 9. DVT prophylaxis: SCDs, continue therapeutic Lovenox pending duplex ultrasound results given elevated dimer. 10. CODE status: Patient HCPOA and living will is not in place. Given Covid pneumonia with hypoxia presentation discussed CODE status at length including difference between FULL code, DNR-CCA and DNR-CC status. Following discussions about the differences in these status, requested DNR-CCA, no intubation. Discussed and confirmed this at length. We did discuss that she could change her status if she decided otherwise. Also discussed possibility for air Vo and BiPAP. Advanced Care Planning Face to Face Time: 16 minutes. Charges/Coding Visit Charges OBSV E&M: 28078 Initial observation care L3 Procedures Hospitalists Procedures: 15411 Advncd Care Plan 30 Min
[2021-02-22 17:43] LABS: Probe Check PASS; Specimen Processing Control PASS
[2021-02-22 17:47] VITALS: BP 185/66; PULSE 65; PULSE 67; RESP 21; TEMP 38.1; O2SAT 93; O2SAT 94
[2021-02-22 18:26] VITALS: BMI 29.2
[2021-02-22 18:31] LABS: BNP,B-Type NATRIURETIC PEPTIDE 172.6 pg/mL (0-100)
--- NOTE | 2021-02-22 18:32 | PCS.PANDOC ---
PANDEMIC DOCUMENTATION INITIATED: Date: 01/03/2021 Time: 190
[2021-02-22 18:36] LABS: AST(SGOT) 27 U/L (15-37); Alanine Aminotransfer ALT/SGPT 21 U/L (13-56); Albumin, Serum 2.9 g/dL (3.2-5.0); Alkaline Phosphatase 81 U/L (45-117); Bilirubin, Direct 0.13 mg/dL (0.00-0.30); Ferritin 317 ng/mL (8-252); Globulin 4.1 g/dL (2.2-4.2); LDH 261 U/L (84-246)
[2021-02-22 18:57] VITALS: BP 175/67; PULSE 65; RESP 20; TEMP 37.2; O2SAT 90
[2021-02-22 19:08] VITALS: PULSE 66; RESP 18; O2SAT 91
[2021-02-22 19:14] LABS: Procalcitonin 0.04 ng/mL (0.00-0.09)
--- NOTE | 2021-02-22 20:16 | NURSING ---
Patient's bp was 175/67 on admission, attempted to give hydralazine but she refused. Said her blood pressure was not that bad.
[2021-02-22 21:06] LABS: Color, Urine Yellow (Yellow); Glucose, Dipstick Normal (Normal); Ketone-Dipstick Negative (Negative); Leukocyte Esterase-Dipstick 500 /ul (Negative); Mucous, Urine 0 SEEN /hpf (<or=2+); Nitrite-Dipstick Negative (Negative); Occult Blood-Urine 150 /ul (Negative); Protein-Dipstick 100 mg/dl (Negative); Urine Bilirubin Dipstick Negative (Negative); Urine Clarity Sl. Cloudy (Clear); Urine Urobilinogen Normal (Normal)
[2021-02-22 21:24] LABS: Red Blood Cells-Urine 5-10 SEEN /hpf (0-5); Squamous Epithelial Cells - UA 5-10 SEEN /hpf (5-10); Transitional Epithelial - Ur 0-5 SEEN /hpf (0-5); White Blood Cells 5-10 SEEN /hpf (0-5)
[2021-02-22 21:27] LABS: Bacteria 1+ /hpf (None Seen)
[2021-02-22] MEDS: Pravastatin 20 MG Tablet PO (22:19)
[2021-02-22] MEDS: Enoxaparin 80 MG/0.8 ML Syringe 70 MG SC (22:19)
[2021-02-22] MEDS: Carvedilol 12.5 MG Tablet PO (22:19)
[2021-02-22] MEDS: 0.9% Normal Saline 1,000 ML 100 ML IV (22:21)
[2021-02-22 22:23] VITALS: BP 181/67; PULSE 62; RESP 18; TEMP 37.3; O2SAT 94
[2021-02-23] VITALS (18 sets, daily range): BP systolic 180–207; BP diastolic 68–90; PULSE 55–79; RESP 14–22; TEMP 36.4–37.2; O2SAT 91–97
[2021-02-23] MEDS: Ipratropium/Albuterol Sulfate 3 ML AMPUL.NEB INHALATION ×3 (07:11→19:19)
[2021-02-23 07:29] LABS: Absolute Lymphocyte Count 0.91 X10^3/uL (0.83-4.51); Hematocrit 34.6 % (37-47); Hemoglobin 11.5 g/dL (12.0-15.0); Lymphocyte # 0.91 X10^3/ul (0.83-4.51); Lymphocyte % 21.6 % (19-41); Mean Corp Hgb Conc 33.2 g/dL (32-36); Mean Corpuscular Hgb 30.6 pg (27.0-32.0); Mean Platelet Vol. 9.8 fl (6.2-12.0); Monocyte# 0.25 X10^3/uL; Monocyte% 5.9 % (0-10); NRBC Flagged by Analyzer 0 % (0-5); Neutrophil # 3.03 X10^3/uL (2.7-7.7); POSITIVE MORPHOLOGY YES; Platelet Count 165 K/mm3 (150-450); RBC Distribution Width CV 14.2 % (11.6-14.6); RBC Distribution Width SD 48.1 fl (35.1-43.9); Red Blood Count 3.76 M/mm3 (4.2-5.4); White Blood Count 4.2 K/mm3 (4.4-11.0)
[2021-02-23 08:00] LABS: ALB/GLOB Ratio 0.6 RATIO (0.9-2.4); AST(SGOT) 20 U/L (15-37); Alanine Aminotransfer ALT/SGPT 18 U/L (13-56); Albumin, Serum 2.5 g/dL (3.2-5.0); Alkaline Phosphatase 76 U/L (45-117); Anion Gap 7 (5-15); BUN 22 mg/dL (7-18); BUN/Creat Ratio 15.1 RATIO (10-20); Chloride 109 mmol/L (98-107); Creatinine, Serum 1.46 mg/dL (0.55-1.02); EST Glomerular Filtration Rate 37 mL/min (>60); Est Glom Filt Rate - Afr Amer 45 mL/min (>60); Estimated Creatinine Clearance 25.02 ml/min; Globulin 4.1 g/dL (2.2-4.2); Glucose 162 mg/dL (74-106); Potassium 4.1 mmol/L (3.5-5.1); Protein, Total 6.6 g/dL (6.4-8.2); Sodium Level 139 mmol/L (136-145)
[2021-02-23 08:07] LABS: Differential Indicated SCAN CRITERIA MET
[2021-02-23] MEDS: 0.9% Normal Saline 1,000 ML 100 ML IV ×2 (08:13→17:01)
[2021-02-23] MEDS: Aspirin E.C. 81 MG Tablet PO (08:14)
[2021-02-23] MEDS: Levothyroxine 100 MCG Tablet PO (08:15)
[2021-02-23] MEDS: Carvedilol 12.5 MG Tablet PO ×2 (08:15→21:31)
[2021-02-23 08:16] LABS: Platelet Estimate ADEQUATE (ADEQ); Red Cell Morphology NORM C+C NORMAL (NORM C&C)
[2021-02-23] MEDS: hydrALAZINE 20 MG/ML Vial 10 MG IV ×2 (08:25→14:40)
[2021-02-23] MEDS: Enoxaparin 80 MG/0.8 ML Syringe 70 MG SC (08:33)
[2021-02-23] MEDS: ALPRAZolam 0.5 MG Tablet PO ×2 (10:06→21:40)
--- NOTE | 2021-02-23 10:23 | NURSING ---
Pt daughter on phone stating that patient called her and said she has been trying to get someone in her room She states her mother said she Just does not feel right . Call lights reviewed nothing noted. Nurse ans charge nurse into see pt. She is on 2 l n and stats 96%. She states she feels like a rubber band round her chest. Further describes this is more how she feels when he is having a panic attack. Pt is encouraged to let staff know exactly what she is feeling so appropriate measures could be taken. New order for xanax at 0.5 po bid. Pt states she takes it at times. Could not state how often she takes this. Daughter called and said pt has been known at home to manipulate her medication and is not always compliant with medication. Pt took .25 of xanax and is resting in bed. BP retaken still high. o
[2021-02-23] MEDS: 0.9% Saline Lock 10 ML Syringe IV ×2 (11:41→14:40)
[2021-02-23] MEDS: dexAMETHasone 10 MG/ML Vial IV (11:41)
--- NOTE | 2021-02-23 16:26 | CASEMGMT ---
RANDELL GUNN Assessment: Face to Face with pt for initial transition planning/care coordination assessment. RANDELL GUNN introduced self and role at [facility], pt voices understanding and consents to assessment. Pt is A/O x4 and answers all questions appropriately at this time. Pt sitting up in chair on RA in no distress. Care providers, pharmacy, and demographics verified/updated. Admitting Dx: COVID PNA, FTT Adult, hypoxia PCP: Valentín Specialists: Pt denies. [facility]acy: [facility] Insurance: MCR, [employer] Prescription Benefit: yes LW/HPOA: Pt denies having and denies need for info regarding AD. LNOK: Kory Alberto, ; Josef Remy, son Living Arrangements: Pt lives with in a mobile home with 4 steps to enter with a rail. Pt reports she was I in ADL's prior to this illness. Transportation: Pt drives self and denies concerns with transportation. DME/HHC/SNF: Pt has a walker, shower chair, cane, grab bars and toilet risert at home. She denies previous HHC or SNF stays. Pt states she was first tested for COVID at [facility]. Her is also a current patient. She does have family who can provide her with groceries and supplies. Pt is asking for assistance at home. She is interested in home nursing as well as PUBLIC WORKS TECHNICIAN for community resources. She states her has had [facility] in the past and she would like them to see her at home. She denies need for a list of HHC agencies. She is on RA currently. She is aware that the [facility] will not provide cleaning services, but states she needs this too. Pt is retired, smokes 1/2 pack of cigarettes a day, denies drug use. Pt states no further concerns/needs. CM to follow. Advised pt to ask CM if any further question/concerns/needs arise, voices understanding. Pt Goal: Home with HHC Plan: Home with HHC
--- NOTE | 2021-02-23 16:58 | PN.HOSP_ITS ---
Subjective Subjective Patient seen and examined. She was lying in bed and looks quite depressed. She felt weak but denied any shortness of breath. She was on 2 L of oxygen. Review of sounds otherwise negative. Patient refused to take remdesivir and when asked why, she stated I have decided and I'm not discussing it! She has remained hemodynamically stable. Patient subsequently overt thought she is refusing remdesivir because she is allergic to a whole lot of medications and react to any new things so she is concerned about taking remdesivir. Patient is unvaccinated. Objective Data Objective Data Vital Signs: Vital Signs Temp Pulse Resp BP Pulse Ox 97.5 F L 58 L 18 183/68 H 92 02/23/21 14:36 02/23/21 15:33 02/23/21 15:13 02/23/21 14:40 02/23/21 15:10 Oxygen Flow Rate (L/min) 93 Oxygen Delivery Method Room Air Weight: 152 lb 5.431 oz Body Mass Index (BMI) 29.2 Intake & Output: Intake and Output for Last 24 Hours 02/21/21 02/22/21 02/23/21 23:59 23:59 23:59 Intake Total 1836.67 / 1836.67 Balance 1836.67 / 1836.67 Lab / Micro Data Result Diagrams: 02/23/21 07:12 02/23/21 07:12 Labs: Laboratory Results - last 24 hr 02/22/21 15:35: Ferritin 317 H, Total Bilirubin 0.40, Direct Bilirubin 0.13, AST 27, ALT 21, Alkaline Phosphatase 81, Lactate Dehydrogenase 261 H, C-React Prot Ext Range 45.20 H, Total Protein 7.0, Albumin 2.9 L, Globulin 4.1 02/22/21 15:35: B-Natriuretic Peptide 172.6 H 02/22/21 16:10: COVID-19 (JULIETTE) Positive 02/22/21 18:15: Procalcitonin 0.04 02/22/21 20:10: Urine Color Yellow, Urine Clarity Sl. Cloudy, Urine pH 5.0, Ur Specific [place] 1.020, Urine Protein 100 H, Urine Glucose (UA) Normal, Urine Ketones Negative, Urine Occult Blood 150 H, Urine Nitrite Negative, Urine Bilirubin Negative, Urine Urobilinogen Normal, Ur Leukocyte Esterase 500 H, Urine RBC 5-10 SEEN, Urine WBC 5-10 SEEN, Ur Squamous Epith Cells 5-10 SEEN, Ur Transition Epith Cell 0-5 SEEN, Urine Bacteria 1+, Urine Mucus 0 SEEN 02/23/21 07:12: WBC 4.2 L, RBC 3.76 L, Hgb 11.5 L, Hct 34.6 L, MCV 92.0, MCH 30.6, MCHC 33.2, RDW Std Deviation 48.1 H, RDW Coeff of Souleymane 14.2, Plt Count 165, MPV 9.8, Immature Gran % (Auto) 0.500, Neut % (Auto) 72.0 H, Lymph % (Auto) 21. 6, [place] % (Auto) 5.9, Eos % (Auto) 0.0, Baso % (Auto) 0.0, Absolute Neuts (auto) 3.0, Absolute Lymphs (auto) 0.91, Nucleated RBC % 0, Platelet Estimate ADEQUATE, RBC Morphology NORM C+C 02/23/21 07:12: Sodium 139, Potassium 4.1, Chloride 109 H, Carbon Dioxide 23.0, Anion Gap 7, BUN 22 H, Creatinine 1.46 H, Estim Creat Clear Calc 25.02, Est GFR (MDRD) Af Amer 45 L, Est GFR (MDRD) Non-Af 37 L, BUN/Creatinine Ratio 15.1, Glucose 162 H, Calcium 8.0 L, Total Bilirubin 0.40, AST 20, ALT 18, Alkaline Phosphatase 76, Total Protein 6.6, Albumin 2.5 L, Globulin 4.1, Albumin/Globulin Ratio 0.6 L Micro: Microbiology 02/22/21 19:05 Mucosa - Nasopharyngeal Respiratory Panel (PCR) - Final 02/22/21 20:10 Urine, Clean Catch Legionella Antigen - Final 02/22/21 20:10 Urine, Clean Catch Streptococcus pneumoniae Antigen (M - Final Radiography Diagnostic Testing: Radiology Impression Venous Duplex 02/22/21 17:24 IMPRESSION: There is no demonstrated deep venous thrombosis. Please see technologist report in PACS for further details for their impression/ worksheet/ details/ etc. Electronically Signed: Perry Boyd MD at 18:24 EDT , Service support , Physical Exam Const alert, oriented x3 and no apparent distress Exam Limitations: no limitations HEENT head/scalp atraumatic and moist oral mucous membranes Head and Scalp: normocephalic Eyes PERRL, EOMs intact bilaterally and conjunctivae normal Neck no lymphadenopathy Resp Resp Narrative: diminished breath sounds bibasally, no wheezes or crackles. On 2L of oxygen by nasal canula Cardio regular rate, regular rhythm and no murmurs GI normal to inspection, nondistended, normoactive bowel sounds, soft to palpation, non-tender and non-distended Extremity normal to inspection Peripheral Pulses: Yes pulses 2+ throughout Skin no rashes or lesions noted Neuro CN's II-XII intact bilaterally Sensorium / Orientation: awake and alert Psych Mood & Affect: depressed Assessment & Plan Assessment/Plan (1) Hypoxia: PLAN: #Acute hypoxic respiratory insufficiency due to COVID-19 pneumonia * Currently on 2 L of oxygen. Refuses remdesivir. On Decadron. * Breathing treatment with bronchodilators. Titrate oxygen to maintain saturation above 90%. * #Elevated D-dimer * D-dimer was 1.06. Was started on therapeutic Lovenox and duplex ordered on admission. Duplex negative. * Will discontinue therapeutic Lovenox. Elevated D-dimer is likely due to Covid infection. * Will place on low-dose Eliquis which will likely need for about 2 weeks to decrease risk of thromboembolic disorder related to Covid. * #Hypertension: On Coreg. IV hydralazine as needed #CAD s/p stents: On aspirin and Coreg as well as statin. #Hyperlipidemia: On statin #Hypothyroidism: On Synthroid #CKD stage 3B: Cr is 1.46; basleine is around 1.2-1.3. Will trend. #Anxiety and depression: On Xanax as needed. #DC: On CPAP but noncompliant. DVT prophylaxis: discontinue therapeutic lovenox; start eliquis 2.5mg bid. Charges/Coding Visit Charges Inpatient E&M: 60840 Subs Hosp L2
[2021-02-23 17:10] LABS: Bedside Glucose 196 mg/dL (70-110)
--- NOTE | 2021-02-23 21:30 | NURSING ---
bp 207/77 pt refusing hydralazine
[2021-02-23] MEDS: Pravastatin 20 MG Tablet PO (21:32)
[2021-02-24] VITALS (19 sets, daily range): BP systolic 114–217; BP diastolic 54–83; PULSE 52–75; RESP 18–20; TEMP 35.8–37.2; O2SAT 92–97
[2021-02-24] MEDS: 0.9% Normal Saline 1,000 ML 100 ML IV (03:07)
[2021-02-24] MEDS: hydrALAZINE 20 MG/ML Vial 10 MG IV ×2 (03:11→07:24)
[2021-02-24] MEDS: 0.9% Saline Lock 10 ML Syringe IV ×2 (03:11→07:23)
[2021-02-24] MEDS: ALPRAZolam 0.5 MG Tablet PO (07:22)
[2021-02-24] MEDS: Aspirin E.C. 81 MG Tablet PO (08:28)
[2021-02-24] MEDS: dexAMETHasone 10 MG/ML Vial IV (08:29)
[2021-02-24] MEDS: Carvedilol 12.5 MG Tablet PO ×2 (08:29→17:23)
[2021-02-24] MEDS: Levothyroxine 100 MCG Tablet PO (08:29)
[2021-02-24] MEDS: APIXABAN 2.5 MG TABLET PO ×2 (08:29→20:50)
[2021-02-24] MEDS: Losartan Potassium 25 MG Tablet PO ×2 (08:38→20:50)
[2021-02-24] MEDS: Clonidine HCl 0.1 MG, Clonidine HCl 0.2 MG 0.3 MG PO (08:38)
[2021-02-24 09:31] LABS: Absolute Lymphocyte Count 1.39 X10^3/uL (0.83-4.51); Absolute Neutrophil Count 12.5 X10^3/uL (2.0-7.7); Basophil# 0.02 X10^3/uL; Basophil% 0.1 % (0-1); Differential Indicated SCAN CRITERIA MET; Hemoglobin 11.4 g/dL (12.0-15.0); Lymphocyte # 1.39 X10^3/ul (0.83-4.51); Lymphocyte % 9.5 % (19-41); Mean Corp Hgb Conc 32.6 g/dL (32-36); Mean Corpuscular Hgb 29.8 pg (27.0-32.0); Mean Corpuscular Volume 91.6 fL (81-99); Mean Platelet Vol. 9.8 fl (6.2-12.0); Monocyte# 0.53 X10^3/uL; Monocyte% 3.6 % (0-10); NRBC Flagged by Analyzer 0 % (0-5); Neutrophil # 12.51 X10^3/uL (2.7-7.7); POSITIVE MORPHOLOGY YES; Platelet Count 222 K/mm3 (150-450); RBC Distribution Width CV 14.6 % (11.6-14.6); RBC Distribution Width SD 49.4 fl (35.1-43.9); Red Blood Count 3.82 M/mm3 (4.2-5.4); White Blood Count 14.6 K/mm3 (4.4-11.0)
[2021-02-24 10:02] LABS: Reactive Lymphocyte 1+
--- NOTE | 2021-02-24 10:20 | CASEMGMT ---
RANDELL GUNN in to discuss MARCH form with patient. RANDELL GUNN explained MARCH form, patient voiced understanding. Pt signed form and filed in chart. Pt provided with a copy of signed MARCH form. Therapy just completed working with patient. Therapist verbally stating she is recommending SNF. Discussed with patient the possibility of SNF, pt states she is agreeable. Discussed that the closest facility is in [place], pt states she does not want to go that far away. Discussed with patient [facility] as yesterday, she is agreeable to this plan. Patient had no further questions or concerns at this time. TC to [facility], referral made and faxed at this time. Ant states they are able to accept pt.
[2021-02-24] MEDS: Ipratropium/Albuterol Sulfate 3 ML AMPUL.NEB INHALATION ×3 (10:29→19:18)
[2021-02-24 10:32] LABS: Anion Gap 9 (5-15); BUN 27 mg/dL (7-18); BUN/Creat Ratio 22.9 RATIO (10-20); Calcium,Total 8.7 mg/dL (8.5-10.1); Chloride 112 mmol/L (98-107); Creatinine, Serum 1.18 mg/dL (0.55-1.02); EST Glomerular Filtration Rate 48 mL/min (>60); Est Glom Filt Rate - Afr Amer 58 mL/min (>60); Estimated Creatinine Clearance 30.95 ml/min; Glucose 163 mg/dL (74-106); Potassium 3.8 mmol/L (3.5-5.1); Sodium Level 140 mmol/L (136-145)
--- NOTE | 2021-02-24 12:13 | CASEMGMT ---
Social Work Note SW in to speak with pt regarding SNF's. There are four SNF currently accepting COVID+ pt's. Three SNF are in the [facility] and the other SNF is in [facility] but does have a waitlist for COVID pt's. SW updated pt that options for SNF are [facility] and [facility]. Pt states she doesn't want to go to any of them there, states she doesn't want to go that far. SW informed pt that [facility] will be set up for pt then. Pt states understanding. Celeste Vega DISPATCH MANAGER, SUPERVISOR FURNACE PROCESS
--- NOTE | 2021-02-24 13:46 | CASEMGMT ---
Social Work Note BRIDGET updated by PT that pt cannot return home, will need SNF. RN then updated this worker that she is speaking to pt's daughter Yandy and Yandy is also stating pt cannot return home. SW in to speak with pt. SW informed pt that at this time it is not safe for pt to return home, pt will need to go to a SNF. SW informed pt again that the only SNF accepting COVID+ pt's are in [facility]. SW informed pt that this worker will check with the closest SNF ([facility]) but informed pt that the other day they had no beds available and had a waitlist. Pt states she cannot be that far from her family. SW informed pt that she cannot return home due to safety as pt is needing 24/7 care and pt's daughter Yandy told RN pt will need to got to a SNF. SW informed pt that it would likely be a SNF in [facility], which is a one star facility. SW informed pt that this worker will send call and send a referral to the SNF that has an open bed for pt today. Pt states ok. BRIDGET called all four SNF currently accepting COVID+ pts. ([facility], [facility], and [facility] in [place]) and the only SNF that has a bed available for COVID+ pt is [facility] which is a one star facility. BRIDGET faxed referral to [facility]. RN informed this worker that pt's daughter Yandy called in asking to get pt retested for COVID. BRIDGET called [facility] pt to not be retested for COVID as pt was just tested two days ago at [facility]. BRIDGET updated that pt did give permission for updates to be given to Yandy. BRIDGET placed a call to Yandy. BRIDGET updated Yandy that pt will not be restested for COVID. Pt will need to go to a SNF taking positive COVID pt's. BRIDGET informed Yandy that the only SNF that has a bed available, taking active COVID pt's is [facility] [place] [facility] which is only a one star facility. Yandy states she is not sending her mother to a worse situation and that will not work. Yandy states she has heard horror stories about COVID + Nursing homes and do not want to send pt to one. BRIDGET informed Yandy that pt can come home but pt will need 24/7 care as pt is requiring assistance for all ADLS. Yandy states she has three brothers that she will call and then will call this worker back. BRIDGET waiting for call back from Yandy. Celeste Vega ENVIRONMENTAL HEALTH TECHNICIAN, BEAM WORKER
--- NOTE | 2021-02-24 15:01 | CASEMGMT ---
Addendum entered by Celeste Vega 02/24/21 15:15: SW in to speak with pt. SW updated pt that Yandy prefers for pt to return home, will be discharged home today with HHC. SW informed pt that Yandy is trying to talk to her, asked pt to call Yandy. Pt states understanding, agreeable to returning home with HHC. Original Note: Social Work Note SW received call from pt's daughter Yandy stating between the four children and eight grandchildren they will take pt home and provide 24/7 care. Yandy states they are getting the water fixed in pt's home tonight. Yandy states she has been trying to call and text pt but she hasn't answered. SW informed Yandy that this worker will ask pt to call her. SW informed Yandy that pt will be discharged today and HHC has been set up. Yandy states she will be in to transport pt home later this evening. BRIDGET updated RN, physician and RN CM. BRIDGET received call from Lizzeth at [facility] stating they are able to accept pt. BRIDGET updated Lizzeth that pt is now going home. Celeste Vega RISK CONTROL PRODUCT LIABILITY DIRECTOR, DRYWALL HANGER HELPER
--- NOTE | 2021-02-24 15:45 | PCM.DC.SUM ---
Providers Date of Admission: 02/22/21 Primary Care Physician: Dr. Gema Laura MD Reason For Visit: COVID PNA, FTT ADULT, HYPOXIA Diagnosis Discharge Diagnosis (1) Hypoxia: Status: Acute Code(s): R09.02 - Hypoxemia Medications at Discharge Home Medications aspirin 81 mg PO DAILY@0800 08/03/16 levothyroxine 100 mcg tablet 100 mcg PO DAILY 12/28/20 nitroglycerin 0.4 mg sublingual tablet 0.4 mg SUBLINGUAL Q5-15M PRN 12/28/20 alprazolam 0.5 mg tablet 0.25 mg PO DAILY PRN tab 12/29/20 cholecalciferol (vitamin D3) 25 mcg (1,000 unit) tablet 25 mcg PO DAILY 12/29/20 losartan 50 mg tablet 25 mg PO BID tab 12/29/20 pravastatin 40 mg tablet 20 mg PO QHS tab 12/29/20 carvedilol 12.5 mg PO BID 02/22/21 dexamethasone 6 mg PO DAILY #8 tab 02/24/21 Hospital Course Operations None Procedures None Summary of Care Provided Minutes Spent on Discharge: 40 Hospital Course: Patient is a 70 y/o F with an extensive PMH as outlined who was admitted via the ED on 02/24/2021 with a complaint of fever, chills, headache, shortness of breath, sore throat, body aches, cough, dyspnea, nausea and diarrhea and altered sense of smell and taste. Symptoms started on . Her had been diagnosed with COVID pneumonia and hypoxia. CXR showed evidence of bilateral pneumonia, and COVID test was positive. She was admitted and managed for acute hypoxic respiratory insufficiency due to COVID 19 pneumonia. She was started on decadron; she was out of window for remdesivir. She also stated she wouldnt want to take remdesivir or any experimental drug as she had a history of allergies to many meds. Patient's shortness of breath improved. However, due to her deconditioning from covid, PT/OT deemed that she would benefit from going to a SNF. However, she refused and preferred to go home with home health. Patient was therefore discharged home on oral dexamethasone 6mg daily x 8 tabs to complete a 10 day course. She is to remain in isolation till February 27, 2021 to complete a 10 day course. She is to follow up with her PCP in 1-2 weeks. Patient seen and examined prior to discharge. She was on room air at time of review. She complained of feeling tired and weak but had no complaints otherwise. Review of systems was otherwise negative. Labs and vitals reviewed. Home meds reviewed and reconciled. Physical Exam Const alert, oriented x3 and no apparent distress General Appearance: cooperative and comfortable Exam Limitations: no limitations HEENT normocephalic, head/scalp atraumatic and moist oral mucous membranes Eyes PERRL, EOMs intact bilaterally and conjunctivae normal Neck no lymphadenopathy Resp Resp Narrative: diminished breath sounds bibasally, no wheezes or crackles. On room air Cardio regular rate, regular rhythm and no murmurs GI normal to inspection, nondistended, normoactive bowel sounds, soft to palpation, non-tender and non-distended Extremity normal to inspection Skin no rashes or lesions noted Neuro CN's II-XII intact bilaterally and moves all extremities Sensorium / Orientation: awake and alert Psych affect normal Weight / BMI Weight Weight: 153 lb Body Mass Index (BMI) 29.2 ABG / Lab / Microbiology Data Result Diagrams: 02/24/21 09:20 02/24/21 09:20 Laboratory: Laboratory Results - last 24 hr 02/23/21 16:55: POC Glucose 196 H 02/24/21 09:20: WBC 14.6 H, RBC 3.82 L, Hgb 11.4 L, Hct 35.0 L, MCV 91.6, MCH 29.8, MCHC 32.6, RDW Std Deviation 49.4 H, RDW Coeff of Souleymane 14.6, Plt Count 222, MPV 9.8, Immature Gran % (Auto) 0.800, Neut % (Auto) 86.0 H, Lymph % (Auto) 9.5 L, [place] % (Auto) 3.6, Eos % (Auto) 0.0, Baso % (Auto) 0.1, Absolute Neuts (auto) 12.5 H, Absolute Lymphs (auto) 1.39, Nucleated RBC % 0, Reactive Lymphocytes 1+ 02/24/21 09:20: Sodium 140, Potassium 3.8, Chloride 112 H, Carbon Dioxide 19.0 L, Anion Gap 9, BUN 27 H, Creatinine 1.18 H, Estim Creat Clear Calc 30.95, Est GFR (MDRD) Af Amer 58 L, Est GFR (MDRD) Non-Af 48 L, BUN/Creatinine Ratio 22.9 H, Glucose 163 H, Calcium 8.7 Microbiology: Microbiology 02/22/21 19:05 Mucosa - Nasopharyngeal Respiratory Panel (PCR) - Final 02/22/21 20:10 Urine, Clean Catch Legionella Antigen - Final 02/22/21 20:10 Urine, Clean Catch Streptococcus pneumoniae Antigen (M - Final D/C Instructions Discharge Diet: Low fat / Low cholesterol Discharge Activity: Return to Normal Activity Weight Bearing Status: Weight bearing as tolerated Call your doctor if you observe: Fever of 101 or Higher, Shortness of breath, Dizziness, Swelling in the ankles, Chest pain and Increased palpitations (irregular heartbeat) Meaningful Use Info Meaningful Use Diagnoses (Choose all that apply): None applicable Discharge Plan Admission Admit Date/Time: 02/22/21 17:51 Primary Reason for Your Visit: COVID 19 pneumonia Attending Provider: Lianne Mccullough Primary Care Provider: Gema Laura Instructions Patient Instructions: Coronavirus Disease 2019 (COVID-19): Overview Additional Instructions / Restrictions: remain in self isolation till February 27, 2021. Discharge Orders/Prescriptions Prescriptions: New dexamethasone 6 mg tablet 6 mg PO DAILY Qty: 8 RF: 0 Continued alprazolam 0.5 mg tablet 0.25 mg PO DAILY PRN (Reason: Anxiety) RF: 0 cholecalciferol (vitamin D3) 25 mcg (1,000 unit) tablet 25 mcg PO DAILY RF: 0 levothyroxine 100 mcg tablet 100 mcg PO DAILY RF: 0 nitroglycerin 0.4 mg tablet, sublingual 0.4 mg sublingual Q5-15M PRN (Reason: Chest Pain) RF: 0 pravastatin 40 mg tablet 20 mg PO QHS RF: 0 aspirin 81 MG tablet 81 mg PO DAILY@0800 RF: 0 losartan [Cozaar] 50 mg tablet 25 mg PO BID RF: 0 carvedilol 25 mg tablet 12.5 mg PO BID RF: 0 Referrals / Follow Up: Gema Laura MD [Primary Care Provider] - Within 2 Weeks Disposition Disposition (needs filled in before D/C Order can be placed): Home Health Service Charges/Coding Visit Charges Inpatient E&M: 46140 Disch Hosp
--- NOTE | 2021-02-24 17:37 | NURSING ---
ATTEMPTED TO CALL DAUGHTER SHAHEED AT [phone], TO VERIFY A YARD ATTENDANT TIME BY FAMILY. NO ANSWER. LEFT MS TO CALL THIS NURSE FROM [facility] AT [phone]
[2021-02-24] MEDS: Pravastatin 20 MG Tablet PO (20:50)
--- NOTE | 2021-02-24 21:53 | NURSING ---
[facility] here to transport pt.
--- NOTE | 2021-02-24 21:58 | NURSING ---
Called daughter Yandy and advised her that they are loading pt up and she will be there shortly. She appreciated call.
== END 2021-02-24 22:10 | disposition home health service (06) ==
LOC: ED 17:21 → MS3 17:54
PROVIDERS: Admitting Provider Family Medicine; Emergency Provider Emergency Medicine; PCP Internal Medicine; Visit Provider Student in an Organized Health Care Education/Training Program
DX: U07.1 COVID-19 (principal); J12.82 Pneumonia due to coronavirus disease 2019; R09.02 Hypoxemia; I25.10 Atherosclerotic heart disease of native coronary artery without angina pectoris; N18.32 Chronic kidney disease, stage 3b; E11.22 Type 2 diabetes mellitus with diabetic chronic kidney disease; I12.9 Hypertensive chronic kidney disease with stage 1 through stage 4 chronic kidney disease, or unspecified chronic kidney disease; K21.9 Gastro-esophageal reflux disease without esophagitis; E78.5 Hyperlipidemia, unspecified; E03.9 Hypothyroidism, unspecified; M19.90 Unspecified osteoarthritis, unspecified site; F17.210 Nicotine dependence, cigarettes, uncomplicated; F41.9 Anxiety disorder, unspecified; F32.A Depression, unspecified; M79.89 Other specified soft tissue disorders; R06.00 Dyspnea, unspecified; E66.9 Obesity, unspecified; G47.33 Obstructive sleep apnea (adult) (pediatric); Z79.899 Other long term (current) drug therapy; Z79.82 Long term (current) use of aspirin; Z95.5 Presence of coronary angioplasty implant and graft; Z28.3 Underimmunization status; Z68.30 Body mass index [BMI] 30.0-30.9, adult; Z91.19 Patient's noncompliance with other medical treatment and regimen
CPT/HCPCS: 36415; 71045; 80048; 80053; 80076; 81001; 82728; 82962; 83605; 83615; 83880; 84145; 84484; 85025; 85379; 86140; 87040; 87449; 87633; 87635; 93005; 93970; 94640; 94762; 96361; 96372; 96374; 96375; 96376; 97162; 97166; 97530; 97535; 99218; 99251; 99285; 99406; J7030; J7040; U0005; A4216; G0378; G0463; U0003

== ENCOUNTER 2021-02-27 12:26 | Inpatient (IN) | payer MEDICARE, OTHER, SELFPAY ==
[2021-02-27] VITALS (19 sets, daily range): BP systolic 133–239; BP diastolic 49–93; PULSE 15–81; RESP 13–25; TEMP 36.4–37; O2SAT 90–99; BMI 27.4; BMI 29.7
--- NOTE | 2021-02-27 13:21 | RAD_ITS ---
STUDY: X-RAY CHEST REASON FOR EXAM: Female, 70 years old. cough TECHNIQUE: Single AP portable view of the chest. COMPARISON: 02/22/2021 FINDINGS: No change in the patchy alveolar opacities in both lungs consistent with bilateral pneumonia. There is no demonstrated pleural abnormality. Normal size heart. Normal mediastinum and олег. Normal visualized pulmonary arteries. Normal visualized aortic arch and descending thoracic aorta. Normal visualized thoracic spine. Normal visualized ribs, clavicles, and shoulders. There is no demonstrated abnormality of the visualized soft tissue structures of the upper abdomen. RAD/Chest 1 View (Portable) IMPRESSION: No change in bilateral pneumonia. Electronically Signed: Hank Nava MD at 14:12 EDT Tel , Service support ,
[2021-02-27 13:32] LABS: Absolute Lymphocyte Count 1.76 X10^3/uL (0.83-4.51); Absolute Neutrophil Count 10.7 X10^3/uL (2.0-7.7); Basophil# 0.03 X10^3/uL; Basophil% 0.2 % (0-1); Hematocrit 35.3 % (37-47); Hemoglobin 11.7 g/dL (12.0-15.0); Lymphocyte # 1.76 X10^3/ul (0.83-4.51); Mean Corp Hgb Conc 33.1 g/dL (32-36); Mean Corpuscular Hgb 30.1 pg (27.0-32.0); Mean Corpuscular Volume 90.7 fL (81-99); Mean Platelet Vol. 9.3 fl (6.2-12.0); Monocyte% 5.9 % (0-10); NRBC Flagged by Analyzer 0.1 % (0-5); Neutrophil % 79.1 % (47-70); POSITIVE MORPHOLOGY YES; Platelet Count 287 K/mm3 (150-450); RBC Distribution Width CV 14.2 % (11.6-14.6); RBC Distribution Width SD 47.2 fl (35.1-43.9); Red Blood Count 3.89 M/mm3 (4.2-5.4); White Blood Count 13.5 K/mm3 (4.4-11.0)
[2021-02-27 13:33] LABS: Differential Indicated SCAN CRITERIA MET
[2021-02-27 13:47] LABS: ALB/GLOB Ratio 0.7 RATIO (0.9-2.4); AST(SGOT) 34 U/L (15-37); Alanine Aminotransfer ALT/SGPT 48 U/L (13-56); Albumin, Serum 2.7 g/dL (3.2-5.0); Alkaline Phosphatase 81 U/L (45-117); Anion Gap 7 (5-15); BUN 32 mg/dL (7-18); BUN/Creat Ratio 28.6 RATIO (10-20); Calcium,Total 8.7 mg/dL (8.5-10.1); Chloride 106 mmol/L (98-107); Creatinine, Serum 1.12 mg/dL (0.55-1.02); EST Glomerular Filtration Rate 51 mL/min (>60); Est Glom Filt Rate - Afr Amer 61 mL/min (>60); Estimated Creatinine Clearance 37.56 ml/min; Globulin 4.1 g/dL (2.2-4.2); Glucose 129 mg/dL (74-106); Potassium 3.9 mmol/L (3.5-5.1); Protein, Total 6.8 g/dL (6.4-8.2); Sodium Level 139 mmol/L (136-145)
[2021-02-27] MEDS: Acetaminophen 500 MG Tablet 1000 MG PO (13:51)
[2021-02-27 13:58] LABS: Hypochromasia RARE; Platelet Estimate ADEQUATE (ADEQ)
[2021-02-27] MEDS: Labetalol (Prefilled) 20 MG/4 ML 10 MG IV (15:14)
--- NOTE | 2021-02-27 16:02 | PCM.HP.STD ---
HPI - General General Date of Admission: 02/27/21 Date of Service: 02/27/21 Chief Complaint: FTT Adult, COVID with ongoing dyspnea/fatigue/malaise. HPI Narrative The patient is a 70 y/o F w/ PMHx: Tobacco use, HTN, HLD, Obesity, PAF, CAD s/p PCI, DC not using CPAP, Anxiety and Depression, MVP, Hypothyroidism, recently discharged on 02/24/2021, admitted on 02/22/2021 secondary to acute hypoxia with bilateral pneumonia secondary to COVID-19 acute viral syndrome with failure to thrive and difficulty taking care of herself; however, she refused SNF placement following PT/OT evaluations w/ recommendation with home therapies set-up instead per her insistence with continued decardon until completion and required isolation until 02/27/21 who now represents to the [facility] ED on 02/27/21 with ongoing dyspnea, severe debiliity, unable to care for herself at home and family unable to effectively help with her daily ADLs prompting ED return. It is now amenable to skilled placement if she needs it. She does admit to depression. Work-up in the ED included T 97.7, heart rate 52-58, BP 238/72, respiratory rate 14, 91 to 94% on room air, CBC with WC 13.5, hemoglobin 11.7, platelet 287 with left shift, CMP with BUN/: 32/1.12, glucose 129, lactic acid 1.0, total bilirubin 1.10, AST/LT 34/48 otherwise [place] profile unremarkable, chest x-ray with bilateral pneumonia similar to prior, Bld Cx x 2 pending. In the ED patient administered albuterol inhaler, Tylenol as well as labetalol 10 mg IV x 1 as well as clonidine, not recently taking her medications. REPLACED BY [facility] Medical History Acute biliary pancreatitis Arthritis Atherosclerotic heart disease of [place] coronary artery without angina pectoris Atrial fibrillation CKD (chronic kidney disease) stage 3, GFR 30-59 ml/min Essential hypertension Facet arthropathy, lumbar GERD (gastroesophageal reflux disease) Heart murmur High cholesterol High triglycerides History of chest pain HLD (hyperlipidemia) Hypertension Hypothyroidism Irregular heart beat Kidney stones Myocardial infarct Osteoarthritis Parathyroid abnormality Presence of stent in coronary artery (~10/29/12) Home Medications aspirin 81 mg PO DAILY@0800 08/03/16 [History Last Taken 02/21/21] levothyroxine 100 mcg tablet 100 mcg PO DAILY 12/28/20 [History Last Taken 02/22/21] nitroglycerin 0.4 mg sublingual tablet 0.4 mg SUBLINGUAL Q5-15M PRN 12/28/20 [History Last Taken Unknown] alprazolam 0.5 mg tablet 0.25 mg PO DAILY PRN tab 12/29/20 [History Last Taken Unknown] cholecalciferol (vitamin D3) 25 mcg (1,000 unit) tablet 25 mcg PO DAILY 12/29/20 [History Last Taken 02/22/21] losartan 50 mg tablet 25 mg PO BID tab 12/29/20 [History Last Taken 02/22/21] pravastatin 40 mg tablet 20 mg PO QHS tab 12/29/20 [History Last Taken 02/21/21] carvedilol 12.5 mg PO BID 02/22/21 [History Last Taken 02/22/21] dexamethasone 6 mg PO DAILY #8 tab 02/24/21 [Rx Last Taken Unknown] Allergy/AdvReac Type Severity Reaction Status Date / Time Penicillins Allergy Severe Rash Verified 02/22/21 15:27 Iodinated Contrast Media Allergy Anaphylaxis Verified 02/22/21 17:00 Antihistamines - Alkylamine AdvReac Unknown heart Verified 02/22/21 15:27 racing enalapril AdvReac Unknown myalgias Verified 02/22/21 15:27 levothyroxine sodium AdvReac Unknown fatigue Verified 02/22/21 15:27 [From Synthroid] metoprolol [From Lopressor] AdvReac Unknown myalgias Verified 02/22/21 18:39 ANESTETICS Allergy Swelling Uncoded 02/22/21 15:27 Family History (Updated 02/22/21 @ 19:[address] Eva Childs MD) Mother Heart disease Hypertension HLD (hyperlipidemia) Father Cancer Patient states spider cancer. Surgical History History of tonsillectomy Presence of coronary angioplasty implant and graft (~10/29/12) Social History household members: spouse Smoking Status: Current every day smoker tobacco type: cigarettes how long ago did patient quit smoking: Ongoing tobacco use since teenager, / ppd. alcohol intake: never substance use type: does not use caffeine: Yes Type: carbonated beverages, coffee and tea what type of physical activity do you participate in: none ROS ROS Narrative Admission Review of Systems: CONSTITUTIONAL: No weight loss, fever, chills, +weakness or fatigue. HEENT: Eyes: No visual loss, blurred vision, double vision or yellow sclerae. Ears, Nose, Throat: No hearing loss, sneezing. SKIN: No rash or itching, lesions, wounds. CARDIOVASCULAR: No chest pain, chest pressure or chest discomfort, palpitations, edema, orthopnea, syncopal events. RESPIRATORY: + shortness of breath, cough without sputum, wheezing, No hemoptysis. GASTROINTESTINAL: + anorexia, nausea without vomiting, lessened diarrhea, No abdominal pain, No melena, BRBPR. GENITOURINARY: No dysuria, frequency, urgency or retention. NEUROLOGICAL: No headache, dizziness, syncope, paralysis, ataxia, numbness or tingling in the extremities, focal weakness, change in bowel or bladder control, seizure. MUSCULOSKELETAL: + muscle, back pain, joint pain or stiffness. HEMATOLOGIC: + anemia, bleeding or bruising. LYMPHATICS: No enlarged nodes. No history of splenectomy. PSYCHIATRIC: + history of depression or anxiety. ENDOCRINOLOGIC: No reports of sweating, cold or heat intolerance. No polyuria or polydipsia. ALLERGIES: No history of asthma, hives, eczema or rhinitis. Vital Signs Vital Signs Vital Signs: 02/27/21 12:28 02/27/21 12:39 02/27/21 14:37 Temperature 98.2 F 97.7 F L Temperature Source Temporal Temporal Pulse Rate 58 L 52 L Respiratory Rate 14 14 Respiratory Effort Normal Respiratory Depth Normal Respiratory Pattern Normal Blood Pressure 238/72 H Blood Pressure Mean 127 Pulse Ox 91 94 Oxygen Delivery Method Room Air Room Air Room Air 02/27/21 14:41 Temperature Temperature Source Pulse Rate Respiratory Rate Respiratory Effort Respiratory Depth Respiratory Pattern Blood Pressure 237/91 H Blood Pressure Mean 139 Pulse Ox Oxygen Delivery Method Weight Weight: 154 lb 15.759 oz Body Mass Index (BMI) 27.4 Physical Exam Narrative Physical Examination: General: Awake, alert, oriented x 3 and cooperative, seated upright in the ED bed in no apparent distress, fatigued, flat affected, intermittently tearful with discussions. Skin: Normal color, normal turgor, no icterus, no cyanosis. HEENT: AT/NC, EOMI, PERRLA, dry MM, no carotid bruits or JVD noted. Lungs: Diminished, occasional end expiratory wheeze, no evidence of any distress, no rales or rhonchi. Heart: Regular rate and rhythm; no gallop, rub audible. Abdomen: Soft, overweight, NTTP, no obvious distention, mildly hyperactive bowel sounds, no obvious HSM. Extremities: No cyanosis, clubbing, or edema. No discomfort to palpation of bilateral calf Neurological: Patient awake, alert, oriented as noted, cognitive function intact; pupils equally reactive to light and accommodation, cranial nerves II-XII grossly normal, moving all 4 extremities, no focal deficits, strength moderately to severely global decrease secondary to acute presentation. Psychiatric: Affect appears flat, tearful with discussions, admits to depression without SI, no acute evidence of anxiety feelings. Results Lab / Micro Data Result Diagrams: 02/27/21 13:24 02/27/21 13:24 Labs: Laboratory Results - last 24 hr 02/27/21 13:24: WBC 13.5 H, RBC 3.89 L, Hgb 11.7 L, Hct 35.3 L, MCV 90.7, MCH 30.1, MCHC 33.1, RDW Std Deviation 47.2 H, RDW Coeff of Souleymane 14.2, Plt Count 287, MPV 9.3, Immature Gran % (Auto) 1.800 H, Neut % (Auto) 79.1 H, Lymph % (Auto) 13.0 L, Cottle % (Auto) 5.9, Eos % (Auto) 0.0, Baso % (Auto) 0.2, Absolute Neuts (auto) 10.7 H, Absolute Lymphs (auto) 1.76, Nucleated RBC % 0.1, Platelet Estimate ADEQUATE, Hypochromasia RARE 02/27/21 13:24: Sodium 139, Potassium 3.9, Chloride 106, Carbon Dioxide 26.0, Anion Gap 7, BUN 32 H, Creatinine 1.12 H, Estim Creat Clear Calc 37.56, Est GFR (MDRD) Af Amer 61, Est GFR (MDRD) Non-Af 51 L, BUN/Creatinine Ratio 28.6 H, Glucose 129 H, Calcium 8.7, Total Bilirubin 1.10 H, AST 34, ALT 48, Alkaline Phosphatase 81, Total Protein 6.8, Albumin 2.7 L, Globulin 4.1, Albumin/Globulin Ratio 0.7 L 02/27/21 13:24: Lactic Acid 1.0 Radiology Impression Chest X-Ray 02/27/21 13:21 IMPRESSION: No change in bilateral pneumonia. Electronically Signed: Hank Nava MD at 14:12 EDT Tel , Service support , Assessment & Plan Assessment/Plan (1) FTT (failure to thrive) in adult: (2) Hypoxia: (3) 2019 novel coronavirus-infected pneumonia (NCIP): PLAN: The patient is a 70 y/o F w/ PMHx: Tobacco use, HTN, HLD, Obesity, PAF, CAD s/p PCI, DC not using CPAP, Anxiety and Depression, MVP, Hypothyroidism, recently discharged on 02/24/2021, admitted on 02/22/2021 secondary to acute hypoxia with bilateral pneumonia secondary to COVID-19 acute viral syndrome with failure to thrive and difficulty taking care of herself; however, she refused SNF placement following PT/OT evaluations w/ recommendation with home therapies set-up instead per her insistence with continued decardon until completion and required isolation until 02/27/21 who now represents to the [facility] ED on 02/27/21 with ongoing dyspnea, severe debiliity, unable to care for herself at home and family unable to effectively help with her daily ADLs prompting ED return. 1. Failure to Thrive, Adult secondary to Ongoing Hypoxia secondary to Bilateral Pneumonia secondary to Acute Viral Syndrome, COVID-19: Will admit to the [place] telemetry, maintain on oxygen with wean as tolerated to room air, PRN albuterol, HOB, IS parameters, given recent presentation will only repeat procalcitonin, d-dimer, sputum Cx, respiratory viral panel, urine antigens given subjective worsening dyspnea, continue supportive care including q 2 hour turning including prone given no prone bed availability and judicious hydration, closely monitor for worsening status for ARDS and multiorgan failure, continue IV decadron to complete total of 10 doses. PT/OT/CM consultations with encouragement of SNF placement given unable to care for self at home even with attempt for home health usage concurrently to which patient is now amenable. 2. Hypertension, uncontrolled upon presentation: Continue home regimen including Coreg as well as recently initiated losartan with doses now as has been missing medications with elevated blood pressure with hold parameters, PRN hydralazine. 3. CAD: s/p PCI/MARIAELENA to OM1 and prox CX 10/29/12;PCI/BMS OM1 02/22/12, continue asa, therapeutic lovenox, coreg, losartan, statin. 4. PAF: We will continue patient home aspirin, Coreg regimen, patient is not anticoagulated. 5. Hyperlipidemia: Continue home statin regimen. 6. Hypothyroidism: Continue home synthroid regimen. 7. Anxiety and depression: We will continue low-dose as needed Xanax. 8. DC: Noncompliant with CPAP. 9. Obesity: Weight loss and lifestyle changes encouraged. 10. Tobacco Abuse: Encouraged cessation, inpatient consultation per RT, NR if desired. 11. DVT prophylaxis: SCDs, lovenox. 12. CODE status: Patient HCPOA and living will is not in place. Patient with repeat presentation, again given re-admission with COVID with PNA, hypoxia, discussed CODE status at length including difference between FULL code, DNR-CCA and DNR-CC status. Following discussions about the differences in these status, and confirmed again requested DNR-CCA, no intubation. Advanced Care Planning Face to Face Time: 16 minutes. Charges/Coding Visit Charges OBSV E&M: 06677 Initial observation care L3 Procedures Hospitalists Procedures: 19171 Advncd Care Plan 30 Min
--- NOTE | 2021-02-27 16:10 | ED.VIS.DYS ---
HPI History of Present Illness Chief Complaint: Shortness of Breath Informant: patient Onset/Context/Timing Onset: Days Context: gradual Timing: Continuous Quality: Positive for Dyspnea on exertion Worsened by: Nothing Relieved by: Nothing Associated Symptoms cough; Negative for rhinorrhea, ear pain, fever, sore throat, chills, sweats, clear sputum, white sputum, yellow sputum or green sputum Chest Pain: Positive for None Narrative Narrative: Patient presents with shortness of breath and fatigue that has been getting worse over the past couple days. Patient was recently admitted to the hospital for COVID-19 and was discharged 3 days ago. Patient admits to persistent cough. Patient denies any sore throat, rhinorrhea, or ear pain. Patient denies any fevers or chills. Patient denies any chest pain. Patient states she has been getting weaker since she has been discharged. [facility] Medical History Acute biliary pancreatitis Arthritis Atherosclerotic heart disease of [place] coronary artery without angina pectoris Atrial fibrillation CKD (chronic kidney disease) stage 3, GFR 30-59 ml/min Essential hypertension Facet arthropathy, lumbar GERD (gastroesophageal reflux disease) Heart murmur High cholesterol High triglycerides History of chest pain HLD (hyperlipidemia) Hypertension Hypothyroidism Irregular heart beat Kidney stones Myocardial infarct Osteoarthritis Parathyroid abnormality Presence of stent in coronary artery (~10/29/12) Home Medications aspirin 81 mg PO DAILY@0800 08/03/16 [History Last Taken 02/21/21] levothyroxine 100 mcg tablet 100 mcg PO DAILY 12/28/20 [History Last Taken 02/22/21] nitroglycerin 0.4 mg sublingual tablet 0.4 mg SUBLINGUAL Q5-15M PRN 12/28/20 [History Last Taken Unknown] alprazolam 0.5 mg tablet 0.25 mg PO DAILY PRN tab 12/29/20 [History Last Taken Unknown] cholecalciferol (vitamin D3) 25 mcg (1,000 unit) tablet 25 mcg PO DAILY 12/29/20 [History Last Taken 02/22/21] losartan 50 mg tablet 25 mg PO BID tab 12/29/20 [History Last Taken 02/22/21] pravastatin 40 mg tablet 20 mg PO QHS tab 12/29/20 [History Last Taken 02/21/21] carvedilol 12.5 mg PO BID 02/22/21 [History Last Taken 02/22/21] dexamethasone 6 mg PO DAILY #8 tab 02/24/21 [Rx Last Taken Unknown] Allergy/AdvReac Type Severity Reaction Status Date / Time Penicillins Allergy Severe Rash Verified 02/22/21 15:27 Iodinated Contrast Media Allergy Anaphylaxis Verified 02/22/21 17:00 Antihistamines - Alkylamine AdvReac Unknown heart Verified 02/22/21 15:27 racing enalapril AdvReac Unknown myalgias Verified 02/22/21 15:27 levothyroxine sodium AdvReac Unknown fatigue Verified 02/22/21 15:27 [From Synthroid] metoprolol [From Lopressor] AdvReac Unknown myalgias Verified 02/22/21 18:39 ANESTETICS Allergy Swelling Uncoded 02/22/21 15:27 Family History (Updated 02/22/21 @ 19:[address] Eva Childs MD) Mother Heart disease Hypertension HLD (hyperlipidemia) Father Cancer Patient states spider cancer. Surgical History History of tonsillectomy Presence of coronary angioplasty implant and graft (~10/29/12) Social History household members: spouse Smoking Status: Current every day smoker tobacco type: cigarettes how long ago did patient quit smoking: Ongoing tobacco use since teenager, 05/22 ppd. alcohol intake: never substance use type: does not use caffeine: Yes Type: carbonated beverages, coffee and tea what type of physical activity do you participate in: none ROS ROS ED Constitutional Constitutional ED: Denies chills or fever(s) Eyes Eyes: Denies blurry vision or change in vision ENT ENT ED: Denies rhinorrhea or sore throat Cardiovascular Cardiovascular: Denies chest pain or palpitations Respiratory/Chest Respiratory/Chest: Reports cough and dyspnea Gastrointestinal Gastrointestinal: Denies nausea or vomiting Genitourinary Genitourinary ED: Denies dysuria or hematuria Musculoskeletal Musculoskeletal: Denies back pain or neck pain Integumentary Denies abscess or rash Neurologic Neurologic: Denies headache(s) or weakness Allergic/Immunologic Allergic/Immunologic ED: Denies mouth swelling or urticaria EXAM Physical Exam Const Vital Signs: 02/27/21 12:28 02/27/21 12:39 02/27/21 14:37 Temperature 98.2 F 97.7 F L Temperature Source Temporal Temporal Pulse Rate 58 L 52 L Respiratory Rate 14 14 Respiratory Effort Normal Respiratory Depth Normal Respiratory Pattern Normal Blood Pressure 238/72 H Blood Pressure Mean 127 Pulse Ox 91 94 Oxygen Delivery Method Room Air Room Air Room Air 02/27/21 14:41 Temperature Temperature Source Pulse Rate Respiratory Rate Respiratory Effort Respiratory Depth Respiratory Pattern Blood Pressure 237/91 H Blood Pressure Mean 139 Pulse Ox Oxygen Delivery Method Positive well nourished and well developed General Appearance ED: well developed and NAD HEENT Reports moist mucous membranes Neck supple and no JVD Resp normal respiratory effort Auscultation: diminished lung sounds diffuse Cardio regular rate and regular rhythm GI non-tender and non-distended Palpation: soft Neuro oriented x3, CN's II-XII intact bilaterally and no sensory deficits noted Sensorium / Orientation: alert Motor Exam: strength 5/5 throughout Psych mental status grossly normal MDM MDM MDM Narrative Medical decision making narrative: Patient was given 6 puffs of an albuterol inhaler here. Patient was given a dose of Tylenol here. Patient's blood pressure was noted to be elevated. Patient was given a dose of labetalol here since she is on carvedilol at home and she does not remember if she took her blood pressure medications today. Patient's blood pressure remained elevated. Patient was given a dose of clonidine. Blood pressure was only mildly improved after this. Patient was given a dose of hydralazine. CBC shows a mild leukocytosis of 13.5. Comprehensive metabolic profile showed a slightly elevated creatinine 1.12. Lactate was normal. Portable chest x-ray was obtained. There is 1 view. On my interpretation, there is bilateral lower lobe infiltrates. Bony thorax is normal. There is no cardiomegaly. This was unchanged compared to previous chest x-ray. Radiologist also interpreted the x-ray and agrees. Case was discussed with the hospitalist. She will admit the patient. Patient's blood pressure still elevated at 210/75. Patient will be started on a Cardene drip. Patient will be admitted to ICU. Patient is agreeable to going to a nursing home facility after discharge. Patient understands and is agreeable with the plan. All questions were answered. Lab Data Attestation: I reviewed the patient's lab results. Labs: Laboratory Results - last 24 hr 02/27/21 02/27/21 02/27/21 13:24 13:24 13:24 WBC 13.5 H RBC 3.89 L Hgb 11.7 L Hct 35.3 L MCV 90.7 MCH 30.1 MCHC 33.1 RDW Std Deviation 47.2 H RDW Coeff of Souleymane 14.2 Plt Count 287 MPV 9.3 Immature Gran % (Auto) 1.800 H Neut % (Auto) 79.1 H Lymph % (Auto) 13.0 L Hartley % (Auto) 5.9 Eos % (Auto) 0.0 Baso % (Auto) 0.2 Absolute Neuts (auto) 10.7 H Absolute Lymphs (auto) 1.76 Nucleated RBC % 0.1 Platelet Estimate ADEQUATE Hypochromasia RARE Sodium 139 Potassium 3.9 Chloride 106 Carbon Dioxide 26.0 Anion Gap 7 BUN 32 H Creatinine 1.12 H Estim Creat Clear Calc 37.56 Est GFR (MDRD) Af Amer 61 Est GFR (MDRD) Non-Af 51 L BUN/Creatinine Ratio 28.6 H Glucose 129 H Lactic Acid 1.0 Calcium 8.7 Total Bilirubin 1.10 H AST 34 ALT 48 Alkaline Phosphatase 81 Total Protein 6.8 Albumin 2.7 L Globulin 4.1 Albumin/Globulin Ratio 0.7 L Radiography Chest X-Ray - ED: 1 View, Read by ED Physician, Read by Radiologist, Right Infiltrate and Left Infiltrate Diagnostic Testing: Clinical Impression(s) from Imaging Studies Chest X-Ray 02/27/21 13:21 IMPRESSION: No change in bilateral pneumonia. Electronically Signed: Hank Nava MD at 14:12 EDT Tel , Service support , Treatment and Re-Evaluation Vital Sign Attestation:: Vital signs were reviewed prior to admission. Blood pressure still elevated at 210/75. Heart rate is still in the mid 40s. Remaining vital signs are normal. Discharge Plan Dx/Rx/DC Orders Clinical Impression: Pneumonia due to COVID-19 virus, FTT (failure to thrive) in adult, Hypertension, Hypertensive urgency Disposition Disposition: Acute Care [facility]
[2021-02-27] MEDS: cloNIDine HCl 0.1 MG Tablet PO (16:18)
[2021-02-27 16:55] LABS: Procalcitonin 0.04 ng/mL (0.00-0.09)
[2021-02-27 17:04] LABS: D-Dimer Quantitative (DVT/PE) 1.81 FEU/ug/m (0.27-0.49)
--- NOTE | 2021-02-27 17:11 | VDLE_ITS ---
Reason For Study: elevated D-Dimer RIGHT LEFT GSV is normal. GSV is normal. CFV is compressible, spontaneous, phasic, CFV is compressible, spontaneous, phasic, competent and demonstrates normal competent, and demonstrates normal augmentation. augmentation. FV is compressible, spontaneous, phasic, FV is compressible, spontaneous, phasic, competent and demonstrates normal competent and demonstrates normal augmentation. augmentation. POP V is compressible, spontaneous, phasic, POP V is compressible, spontaneous, phasic, competent and demonstrates normal competent and demonstrates normal augmentation. augmentation. T/P Trunk is compressible. T/P Trunk is compressible. PTV is compressible. PTV is compressible. RT PerV is compressible. LT PerV is compressible. Procedure This is a venous duplex using B-mode, color flow and spectral Doppler. Exam performed in department. The exam was diagnostic. A preliminary report was called and/or faxed to the pt's RN. VL/Venous Duplex US - Ricardo Extrem Interpretation Summary No evidence for acute deep venous thrombosis bilateral lower extremities with p atent and compressible bilateral great saphenous veins. Ordering Physician: Eva Childs Performed By: Nuno Espino RVT
[2021-02-27] MEDS: hydrALAZINE 20 MG/ML Vial 5 MG IV (17:53)
--- NOTE | 2021-02-27 17:54 | CT_ITS ---
STUDY: CT BRAIN WITHOUT CONTRAST REASON FOR EXAM: Female, 70 years old. Headache confusion and weakness hypertension diabetes renal chronic failure RADIATION DOSAGE (If Supplied By Facility): CTDIvol = ( 44.99 ) mGy, DLP = ( 745.49 ) mGycm TECHNIQUE: Transaxial CT imaging of the brain was performed without administration of intravenous contrast material. Individualized dose optimization techniques were used for this CT. COMPARISON: No relevant priors. FINDINGS: Brain parenchyma is without focal lesions, mass effect, acute intracranial hemorrhage, extra parenchymal fluid collections, hydrocephalus or herniation. The skull is intact. CT/Brain/Head without Contrast IMPRESSION: 1. Normal CT brain. Electronically Signed: Johan Castañeda MD at 19:22 EDT Tel , Service support ,
--- NOTE | 2021-02-27 18:10 | NURSING ---
NEW ROOM ICU 6
[2021-02-27] MEDS: Nicardipine HCl-0.9% Sod Chlor 20 MG/200 ML IV.SOLN 50 MG CONT INF (18:32)
[2021-02-27] MEDS: Ipratropium/Albuterol Sulfate 3 ML AMPUL.NEB INHALATION (20:45)
[2021-02-27] MEDS: Enoxaparin 80 MG/0.8 ML Syringe 70 MG SC (21:08)
[2021-02-27] MEDS: Losartan Potassium 25 MG Tablet PO (21:08)
[2021-02-27] MEDS: Carvedilol 12.5 MG Tablet PO (21:09)
[2021-02-27] MEDS: Pravastatin 20 MG Tablet PO (21:09)
[2021-02-27 21:21] LABS: Troponin-I HS 11 pg/mL (3.0-54.0)
[2021-02-28] VITALS (21 sets, daily range): BP systolic 158–195; BP diastolic 50–77; PULSE 49–67; RESP 14–18; TEMP 36.7–36.9; O2SAT 90–95
[2021-02-28 00:18] LABS: Troponin-I HS 11 pg/mL (3.0-54.0)
[2021-02-28 03:06] LABS: Absolute Lymphocyte Count 1.66 X10^3/uL (0.83-4.51); Absolute Neutrophil Count 7.5 X10^3/uL (2.0-7.7); Basophil# 0.02 X10^3/uL; Basophil% 0.2 % (0-1); Hematocrit 32.6 % (37-47); Hemoglobin 10.8 g/dL (12.0-15.0); Lymphocyte # 1.66 X10^3/ul (0.83-4.51); Lymphocyte % 16.7 % (19-41); Mean Corp Hgb Conc 33.1 g/dL (32-36); Mean Corpuscular Hgb 29.6 pg (27.0-32.0); Mean Corpuscular Volume 89.3 fL (81-99); Mean Platelet Vol. 9.1 fl (6.2-12.0); Monocyte# 0.54 X10^3/uL; Monocyte% 5.4 % (0-10); NRBC Flagged by Analyzer 0.2 % (0-5); Neutrophil # 7.49 X10^3/uL (2.7-7.7); Neutrophil % 75.6 % (47-70); POSITIVE MORPHOLOGY YES; Platelet Count 281 K/mm3 (150-450); RBC Distribution Width SD 45.8 fl (35.1-43.9); Red Blood Count 3.65 M/mm3 (4.2-5.4); White Blood Count 9.9 K/mm3 (4.4-11.0)
[2021-02-28 03:07] LABS: Differential Indicated SCAN CRITERIA MET
--- NOTE | 2021-02-28 03:16 | PCS.PANDOC ---
PANDEMIC DOCUMENTATION INITIATED: Date: 01/03/2021 Time: 190
[2021-02-28] MEDS: hydrALAZINE 20 MG/ML Vial 10 MG IV ×2 (03:30→11:04)
[2021-02-28 03:51] LABS: Troponin-I HS 11 pg/mL (3.0-54.0)
[2021-02-28 04:24] LABS: ALB/GLOB Ratio 0.6 RATIO (0.9-2.4); AST(SGOT) 25 U/L (15-37); Alanine Aminotransfer ALT/SGPT 41 U/L (13-56); Albumin, Serum 2.4 g/dL (3.2-5.0); Alkaline Phosphatase 74 U/L (45-117); Anion Gap 8 (5-15); BUN 34 mg/dL (7-18); BUN/Creat Ratio 30.1 RATIO (10-20); Calcium,Total 8.6 mg/dL (8.5-10.1); Chloride 105 mmol/L (98-107); Creatinine, Serum 1.13 mg/dL (0.55-1.02); EST Glomerular Filtration Rate 50 mL/min (>60); Est Glom Filt Rate - Afr Amer 61 mL/min (>60); Estimated Creatinine Clearance 32.32 ml/min; Globulin 3.7 g/dL (2.2-4.2); Glucose 150 mg/dL (74-106); Potassium 3.8 mmol/L (3.5-5.1); Protein, Total 6.1 g/dL (6.4-8.2); Sodium Level 138 mmol/L (136-145)
[2021-02-28] MEDS: Losartan Potassium 25 MG Tablet PO (05:42)
[2021-02-28] MEDS: Ipratropium/Albuterol Sulfate 3 ML AMPUL.NEB INHALATION ×2 (07:54→19:01)
[2021-02-28] MEDS: dexAMETHasone 2 MG TABLET 6 MG PO (09:19)
[2021-02-28] MEDS: Carvedilol 12.5 MG Tablet PO ×2 (09:19→11:48)
[2021-02-28] MEDS: Enoxaparin 80 MG/0.8 ML Syringe 70 MG SC (09:19)
[2021-02-28] MEDS: Aspirin E.C. 81 MG Tablet PO (09:19)
[2021-02-28] MEDS: Levothyroxine 100 MCG Tablet PO (09:19)
[2021-02-28] MEDS: 0.9% Saline Lock 10 ML Syringe IV ×2 (11:04→18:34)
--- NOTE | 2021-02-28 11:38 | CON.PCM.CC_ITS ---
Assessment & Plan Assessment/Plan (1) Hypertensive urgency: (2) FTT (failure to thrive) in adult: (3) Pneumonia due to COVID-19 virus: (4) CKD (chronic kidney disease) stage 3, GFR 30-59 ml/min: (5) Type 2 diabetes mellitus: PLAN: RECOMMENDATIONS: 1. Discontinue nicardipine drip 2. Increase Coreg 3. Add Norvasc 4. As needed hydralazine and labetalol 5. Consult PT/OT for evaluation and possible placement 6. Monitor saturations with therapy IMPRESSIONS: 1. Hypertensive urgency Unclear if patient's elevated blood pressures are secondary to noncompliance with baseline medications. Patient does not appear to have en dorgan damage as chronic kidney disease is noted in her history. Baseline medications will be continued. Will attempt to address hypertension without nicardipine drip. Coreg will be increased, Norvasc will be added with as needed labetalol and hydralazine. Patient does have renal dysfunction at baseline. Unclear if body aches are secondary to significant hypertension. 2. Failure to thrive/recent COVID-19 Patient appears to be doing well from a COVID-19 standpoint. It is unclear if patient really requires Decadron therapy as she is not requiring supplemental oxygen. Patient does have bilateral infiltrates, but these would be expected for 4 to 6 weeks at a minimum. Patient may have an element of debility secondary to recent illness. Agree with PT/OT evaluation. Would recommend monitoring saturations with therapy as patient could desaturate significantly with exertion. 3. CAD/paroxysmal A. fib/hyperlipidemia/hypothyroidism/anxiety/ depression/untreated DC/tobacco abuse Complicates care, management, recovery and prognosis. Okay to continue with baseline medications. Did stressed to the patient that noncompliance with DC therapy does increase her risk for complications. Could consider a nocturnal oximetry during the acute phase as patient may be having significant desaturation given infiltrates noted with recent COVID-19. Defer to hospitalist. HPI Consult Data Date of Consult: 02/28/21 HPI Narrative HPI Narrative: GAYLE CHO is a 70 F, with past medical history listed below, who presents to [facility] on 02/[facility]2021 secondary to sh ortness of breath and progressive fatigue over the last couple of days. Patient was recently admitted to the hospital for COVID-19, but discharged 3 days ago after refusing therapy evaluation and possible ECF. Patient had continued with a persistent cough, but denied any sore throat, rhinorrhea or ear pain. Patient had not had any recent fevers or chills. Patient stated that she had progressiv e weakness, so came back in for evaluation. In the ER, patient was afebrile, bradycardic and hypertensive at 238/72. Patient was saturating well on room air. Laboratory work-up showed a leukocytosis of 13.5, hemoglobin of 11.7 and a creatinine of 1.12. Total bilirubin was slightly elevated at 1.1, but other LFTs were within normal limits. Chest x-ray showed no change in bilateral infiltrates. The patient was admitted to the floor for concerns of hypertension. Patient was initially given an order for Cardene drip, but this does not appear to have been initiated. Patient overall feels subjectively unchanged compared to previous. Patient is having body aches and weakness. Patient states that she is good about taking her blood pressure medications at baseline, but has had issues in the past secondary to allergies. Patient has had some issues with nausea, but denies any vomiting. Patient did have diarrhea in the past, but this has improved. Patient does have a history of anxiety and depression. Patient states she has not seen a government program manager secondary to hypertension previously. Patient was relatively flat, but otherwise review of systems negative from a constitutional, HEENT, respiratory, cardiovascular, GI, genitourinary, musculoskeletal, skin, neurologic, psychiatric and hematologic system unless stated above. [facility] Medical History Acute biliary pancreatitis Arthritis Atherosclerotic heart disease of [place] coronary artery without angina pectoris Atrial fibrillation CKD (chronic kidney disease) stage 3, GFR 30-59 ml/min Essential hypertension Facet arthropathy, lumbar GERD (gastroesophageal reflux disease) Heart murmur High cholesterol High triglycerides History of chest pain HLD (hyperlipidemia) Hypertension Hypothyroidism Irregular heart beat Kidney stones Myocardial infarct Osteoarthritis Parathyroid abnormality Presence of stent in coronary artery (~10/29/12) Home Medications aspirin 81 mg PO DAILY@0800 08/03/16 [History Last Taken 02/21/21] levothyroxine 100 mcg tablet 100 mcg PO DAILY 12/28/20 [History Last Taken 02/22/21] nitroglycerin 0.4 mg sublingual tablet 0.4 mg SUBLINGUAL Q5-15M PRN 12/28/20 [History Last Taken Unknown] alprazolam 0.5 mg tablet 0.25 mg PO DAILY PRN tab 12/29/20 [History Last Taken Unknown] cholecalciferol (vitamin D3) 25 mcg (1,000 unit) tablet 25 mcg PO DAILY 12/29/20 [History Last Taken 02/22/21] losartan 50 mg tablet 25 mg PO BID tab 12/29/20 [History Last Taken 02/22/21] pravastatin 40 mg tablet 20 mg PO QHS tab 12/29/20 [History Last Taken 1] carvedilol 12.5 mg PO BID 02/22/21 [History Last Taken 02/22/21] dexamethasone 6 mg PO DAILY #8 tab 02/24/21 [Rx Last Taken Unknown] Allergy/AdvReac Type Severity Reaction Status Date / Time Penicillins Allergy Severe Rash Verified 02/22/21 15:27 Iodinated Contrast Media Allergy Anaphylaxis Verified 02/22/21 17:00 Antihistamines - Alkylamine AdvReac Unknown heart Verified 02/22/21 15:27 racing enalapril AdvReac Unknown myalgias Verified 02/22/21 15:27 levothyroxine sodium AdvReac Unknown fatigue Verified 02/22/21 15:27 [From Synthroid] metoprolol [From Lopressor] AdvReac Unknown myalgias Verified 02/22/21 18:39 ANESTETICS Allergy Swelling Uncoded 02/22/21 15:27 Family History Mother Heart disease Hypertension HLD (hyperlipidemia) Father Cancer Patient states spider cancer. Surgical History History of tonsillectomy Presence of coronary angioplasty implant and graft (~10/29/12) Social History household members: spouse Smoking Status: Current every day smoker tobacco type: cigarettes how long ago did patient quit smoking: Ongoing tobacco use since teenager, 1/2 ppd. alcohol intake: never substance use type: does not use caffeine: Yes Type: carbonated beverages, coffee and tea what type of physical activity do you participate in: none ROS ROS Narrative See HPI Physical Exam Const alert, oriented x3 and no apparent distress Constitutional Narrative: Some grimacing with movement in the bed General Appearance: cooperative and comfortable Exam Limitations: no limitations HEENT normocephalic, head/scalp atraumatic and moist oral mucous membranes Eyes PERRL, EOMs intact bilaterally and conjunctivae normal Neck no lymphadenopathy Chest inspection of chest normal Chest: symmetrical chest wall rise; Negative for crepitus Resp no use of accessory muscles Effort and Inspection: able to speak in complete sentences Auscultation: diminished lung sounds; Negative for rales, rhonchi or wheezes Cardio regular rate, regular rhythm, no murmurs, no rub and no gallops GI normal to inspection, nondistended, normoactive bowel sounds, soft to palpation, non-tender and non-distended Extremity normal to inspection Skin no rashes or lesions noted Neuro CN's II-XII intact bilaterally and moves all extremities Sensorium / Orientation: awake and alert Psych affect normal Lab / Micro Data Result Diagrams: 02/28/21 02:39 02/28/21 02:39 Labs: Laboratory Results - last 24 hr 02/27/21 13:24: WBC 13.5 H, RBC 3.89 L, Hgb 11.7 L, Hct 35.3 L, MCV 90.7, MCH 30.1, MCHC 33.1, RDW Std Deviation 47.2 H, RDW Coeff of Souleymane 14.2, Plt Count 287, MPV 9.3, Immature Gran % (Auto) 1.800 H, Neut % (Auto) 79.1 H, Lymph % (Auto) 13.0 L, [place] % (Auto) 5.9, Eos % (Auto) 0.0, Baso % (Auto) 0.2, Absolute Neuts (auto) 10.7 H, Absolute Lymphs (auto) 1.76, Nucleated RBC % 0.1, Platelet Estimate ADEQUATE, Hypochromasia RARE 02/27/21 13:24: Sodium 139, Potassium 3.9, Chloride 106, Carbon Dioxide 26.0, Anion Gap 7, BUN 32 H, Creatinine 1.12 H, Estim Creat Clear Calc 37.56, Est GFR (MDRD) Af Amer 61, Est GFR (MDRD) Non-Af 51 L, BUN/Creatinine Ratio 28.6 H, Glucose 129 H, Calcium 8.7, Total Bilirubin 1.10 H, AST 34, ALT 48, Alkaline Phosphatase 81, Total Protein 6.8, Albumin 2.7 L, Globulin 4.1, Albumin/Globulin Ratio 0.7 L 02/27/21 13:24: Lactic Acid 1.0 02/27/21 16:20: D-Dimer Quant (PE/DVT) 1.81 H* 02/27/21 16:20: Procalcitonin 0.04 02/27/21 20:45: Troponin I High Sens 11 02/27/21 23:42: Troponin I High Sens 11 02/28/21 02:39: Troponin I High Sens 11 02/28/21 02:39: WBC 9.9, RBC 3.65 L, Hgb 10.8 L, Hct 32.6 L, MCV 89.3, MCH 29.6, MCHC 33.1, RDW Std Deviation 45.8 H, RDW Coeff of [place]le[place] 14.0, Plt Count 281, MPV 9.1, Immature Gran % (Auto) 2.100 H, Neut % (Auto) 75.6 H, Lymph % (Auto) 16.7 L , [place] % (Auto) 5.4, Eos % (Auto) 0.0, Baso % (Auto) 0.2, Absolute Neuts (auto) 7.5, Absolute Lymphs (auto) 1.66, Nucleated RBC % 0.2 02/28/21 02:39: Sodium 138, Potassium 3.8, Chloride 105, Carbon Dioxide 25.0, Anion Gap 8, BUN 34 H, Creatinine 1.13 H, Estim Creat Clear Calc 32.32, Est GFR (MDRD) Af Amer 61, Est GFR (MDRD) Non-Af 50 L, BUN/Creatinine Ratio 30.1 H, Glucose 150 H, Calcium 8.6, Total Bilirubin 1.00, AST 25, ALT 41, Alkaline Phosphatase 74, Total Protein 6.1 L, Albumin 2.4 L, Globulin 3.7, Albumin/Globulin Ratio 0.6 L Micro: Microbiology 02/28/21 06:00 Urine, Clean Catch Legionella Antigen - Final 02/28/21 06:00 Urine, Clean Catch Streptococcus pneumoniae Antigen (M - Final 02/27/21 20:45 Mucosa - Nasopharyngeal Respiratory Panel (PCR) - Final Radiology Impression Chest X-Ray 02/27/21 13:21 IMPRESSION: No change in bilateral pneumonia. Electronically Signed: Hank Nava MD at 14:12 EDT Tel , Service support , Brain CT 02/27/21 17:54 IMPRESSION: 1. Normal CT brain. Electronically Signed: Johan Castañeda MD at 19:22 EDT Tel , Service support , Charges/Coding Visit Charges Inpatient E&M: 97928 Init Hosp L3
[2021-02-28] MEDS: amLODIPine 5 MG Tablet PO (11:48)
--- NOTE | 2021-02-28 13:02 | CASEMGMT ---
SOCIAL WORK Referral Source: CM Reason for Consult: Discharge planning Met with patient in room. Introduced role and reason for referral. Patient reports from home with . Patient states is not sure of discharge plan at this time. Patient stating, I want to talk with my family, I just can't get ahold of them. Informed patient this worker will follow up with family. Patient provided with list of facilities for placement. Call to patient's son, Josef. Josef updated on this worker's conversation with patient. Josef states, We don't want my mom in a care home, we want her in the hospital. Josef apologizing to this worker for frustration. Son states, I just don't want to lose the 3 of them to this! Emotional support and active listening provided. Son states will follow up with sister, Yandy and will be in contact with patient. Plan: TBD, SNF vs Home Leah Sepulveda MSW, ADMITTING MANAGER
--- NOTE | 2021-02-28 16:33 | PN.HOSP_ITS ---
Subjective Subjective Follow-up on debility/recent acute COVID-19 Patient was seen and examined. She has remained off oxygen. She complains of feeling tired. Denies any fever or chills. Objective Data Objective Data Vital Signs: Vital Signs Temp Pulse Resp BP Pulse Ox 98.0 F 58 L 16 158/61 H 95 02/28/21 14:25 02/28/21 15:00 02/28/21 14:25 02/28/21 14:25 02/28/21 14:25 Oxygen Delivery Method Room Air Weight: 70.2 kg Body Mass Index (BMI) 29.7 Intake & Output: Intake and Output for Last 24 Hours 02/26/21 02/27/21 02/28/21 23:59 23:59 23:59 Intake Total 335.00 / 335.00 0 / 0 Output Total 200 / 200 Balance 335.00 / 335.00 -200 / -200 Lab / Micro Data Result Diagrams: 02/28/21 02:39 02/28/21 02:39 Labs: Laboratory Results - last 24 hr 02/27/21 16:20: D-Dimer Quant (PE/DVT) 1.81 H* 02/27/21 16:20: Procalcitonin 0.04 02/27/21 20:45: Troponin I High Sens 11 02/27/21 23:42: Troponin I High Sens 11 02/28/21 02:39: Troponin I High Sens 11 02/28/21 02:39: WBC 9.9, RBC 3.65 L, Hgb 10.8 L, Hct 32.6 L, MCV 89.3, MCH 29.6, MCHC 33.1, RDW Std Deviation 45.8 H, RDW Coeff of Souleymane 14.0, Plt Count 281, MPV 9.1, Immature Gran % (Auto) 2.100 H, Neut % (Auto) 75.6 H, Lymph % (Auto) 16.7 L , [place] % (Auto) 5.4, Eos % (Auto) 0.0, Baso % (Auto) 0.2, Absolute Neuts (auto) 7.5, Absolute Lymphs (auto) 1.66, Nucleated RBC % 0.2 02/28/21 02:39: Sodium 138, Potassium 3.8, Chloride 105, Carbon Dioxide 25.0, Anion Gap 8, BUN 34 H, Creatinine 1.13 H, Estim Creat Clear Calc 32.32, Est GFR (MDRD) Af Amer 61, Est GFR (MDRD) Non-Af 50 L, BUN/Creatinine Ratio 30.1 H, Glucose 150 H, Calcium 8.6, Total Bilirubin 1.00, AST 25, ALT 41, Alkaline Phosphatase 74, Total Protein 6.1 L, Albumin 2.4 L, Globulin 3.7, Albumin/Globulin Ratio 0.6 L Micro: Microbiology 02/28/21 06:00 Urine, Clean Catch Legionella Antigen - Final 02/28/21 06:00 Urine, Clean Catch Streptococcus pneumoniae Antigen (M - Final 02/27/21 20:45 Mucosa - Nasopharyngeal Respiratory Panel (PCR) - Final Radiography Diagnostic Testing: Radiology Impression Venous Doppler Study 02/27/21 17:11 Interpretation Summary No evidence for acute deep venous thrombosis bilateral lower extremities with patent and compressible bilateral great saphenous veins. Ordering Physician: Eva Childs Performed By: Nuno Espino, RVT Brain CT 02/27/21 17:54 IMPRESSION: 1. Normal CT brain. Electronically Signed: Johan Castañeda MD at 19:22 EDT Tel , Service support , Physical Exam Narrative Physical exam: General: Alert, Oriented x3, Cooperative, No apparent distress, not on oxygen HEENT: Atraumatic Oral: Moist Mucosa Neck: Supple Lungs: Diminished to auscultation Cardiovascular: HS I+II, regular, no murmurs Abdomen: Bowel Sounds Present, Soft, Non Tender Extremities: No edema Assessment & Plan Assessment/Plan (1) Pneumonia due to COVID-19 virus: (2) FTT (failure to thrive) in adult: (3) Hypertensive urgency: PLAN: 1. Debility secondary to recent acute COVID-19 pneumonia Patient is not on oxygen She is unable to care for self Will continue on oral Decadron to complete previous discharge doses (discharged with 8 more doses) PT/OT to evaluate Social work/case management consult 2. Hypertensive urgency, changes made to patient's home regimen Coreg increased to 25 mg p.o. twice daily Started on amlodipine 5 mg daily Continue to monitor blood pressure 3. Elevated D-dimer, Doppler ultrasound lower extremities negative for acute DVT. Doubt acute PE as the patient is not on oxygen or tachycardic We will switch to therapeutic Lovenox dosing 4. Rest of her chronic medical conditions including CAD status post st ent/paroxysmal atrial fibrillation hyperlipidemia/hypothyroidism/anxiety/depression/DC/obesity all remained stable Continue on aspirin, statin, carvedilol Charges/Coding Visit Charges Inpatient E&M: 70081 Subs Hosp L2
[2021-02-28] MEDS: Labetalol (Prefilled) 20 MG/4 ML IV (18:34)
[2021-02-28] MEDS: Losartan Potassium 50 MG Tablet PO (21:20)
[2021-02-28] MEDS: Pravastatin 20 MG Tablet PO (21:20)
[2021-02-28] MEDS: Carvedilol 25 MG Tablet PO (21:20)
[2021-02-28] MEDS: Enoxaparin 30 MG/0.3 ML Syringe SC (21:20)
[2021-03-01] VITALS (14 sets, daily range): BP systolic 150–199; BP diastolic 58–82; PULSE 56–69; RESP 16–65; TEMP 36.1–36.9; O2SAT 91–95
[2021-03-01] MEDS: hydrALAZINE 20 MG/ML Vial IV (02:56)
[2021-03-01] MEDS: 0.9% Saline Lock 10 ML Syringe IV (02:57)
[2021-03-01] MEDS: Ipratropium/Albuterol Sulfate 3 ML AMPUL.NEB INHALATION ×2 (06:51→19:12)
--- NOTE | 2021-03-01 08:55 | CASEMGMT ---
Addendum entered by Celeset Vega 03/01/21 09:50: BRIDGET received call from Cathleen at [facility] stating pt's non productive dry cough is a symptom of COVID. Cathleen states if [facility] tests pt again, RAPID COVID, and pt comes back Negative, they would be able to accept pt. BRIDGET discussed with Babs Montiel, gave permission for RAPID COVID to be ordered. SW to discuss with Physician. Addendum entered by Celeste Vega 03/01/21 09:42: BRIDGET received call from Cathleen at [facility]. Without giving any identifying information, BRIDGET asked Cathleen to discuss with nursing staff if they would consider taking pt. Cathleen states she will take information to the COVID nurse and then give this worker a call back. Cathleen states it would be for [facility] if they did accept pt has [facility] [place] has no beds available at this time. Addendum entered by Celeste Vega 03/01/21 09:07: BRIDGET reviewed chart farther. Pt's symptoms started Mid January, pt is out of COVID precautions. Pt is on room air. BRIDGET did place a call to Cathleen at [facility] and left message if they would consider pt since she is out of COVID precautions. BRIDGET waiting for call back. Original Note: Social Work Note SW received note that pt's daughter Yandy called and stated [facility] told her that they would be able to accept pt. BRIDGET placed a call to [facility], BRIDGET was updated that COVID+ pt's have to be 14 days from positive COVID test before they would consider taking pt. BRIDGET reviewed chart, pt tested positive 02/22/2021, pt is only 7 days out from Positive COVID test. BRIDGET will update pt's daughter. Celeste Vega TIMBER DEADENER, POLICY ADVISER
[2021-03-01] MEDS: amLODIPine 5 MG Tablet PO (10:30)
[2021-03-01] MEDS: Losartan Potassium 50 MG Tablet PO ×2 (10:30→23:12)
[2021-03-01] MEDS: Carvedilol 25 MG Tablet PO ×2 (10:31→23:11)
[2021-03-01] MEDS: dexAMETHasone 2 MG TABLET 6 MG PO (10:31)
[2021-03-01] MEDS: Aspirin E.C. 81 MG Tablet PO (10:31)
[2021-03-01] MEDS: Enoxaparin 30 MG/0.3 ML Syringe SC ×2 (10:31→23:12)
[2021-03-01] MEDS: Levothyroxine 100 MCG Tablet PO (10:32)
--- NOTE | 2021-03-01 11:30 | CASEMGMT ---
Addendum entered by Celeste Vega 03/01/21 12:07: BRIDGET received message from pt's daughter Yandy to call her back. BRIDGET placed a call back to Yandy. BRIDGET updated Yandy that this worker did call [facility] and they stated to this worker that pt has to be 14 days from positive COVID test before they would consider pt. Yandy states well I spoke to the director yesterday and they told me 14 days from when symptoms started. BRIDGET informed Yandy that that is not what this worker was told this morning when this wroker spoke with staff. SW informed Yandy that there is a SNF in [facility], that may consider pt is pt has negative COVID test. SW informed Yandy that this worker did get approval to get another COVID test for pt so that will be ordered. Yandy asked if pt has negative test if [facility] or [facility] would take pt. BRIDGET informed Yandy that this worker didn't know that answer, would have to check with those facilities if pt does have a negative COVID test. Yandy states understanding. SW waiting for COVID test results. Original Note: Social Work Note SW in to speak with pt. BRIDGET introduced self and role at [facility]. SW updated pt that this worker received message from Yandy to try [facility] in [place], [place]. BRIDGET updated pt that this worker did call [facility], pt would have to be 14 days from positive COVID test before they would consider pt. Pt is on day 7 post positive COVID test. BRIDGET informed pt that pt will get another Rapid COVID test and will go from there. BRIDGET informed pt that if pt has negative Rapid COVID then this worker may have found a SNF in [place] that can accept pt but if pt is still positive then pt will need to consider again going to SNF in [place] that can accept positive COVID pt's. Pt states I don't get why you people can just kick out sick people. BRIDGET informed pt that she is not being kicked out, if she feels she needs a SNF, there is a SNF that can accept pt pt just doesn't want to go to it. BRIDGET informed pt that SW will await determination from COVID test and will also call Yandy to provide update. Pt states that Yandy is main contact to talk to. BRIDGET updated physician, gave approval for Rapid COVID to be ordered. SW asked restaurant shift supervisor to order Rapid COVID. SW attempted to call pt's daughter Yandy to provide update, no answer, SW left voicemail to call this worker back. SW will await results from Rapid COVID test. Celeste Vega CARPENTER BRIDGE, CAN FILLER
[2021-03-01] MEDS: ALPRAZolam 0.25 MG Tablet PO (11:35)
--- NOTE | 2021-03-01 12:05 | PN.CC_ITS ---
Assessment & Plan Assessment/Plan (1) Hypertensive urgency: (2) FTT (failure to thrive) in adult: (3) Pneumonia due to COVID-19 virus: (4) CKD (chronic kidney disease) stage 3, GFR 30-59 ml/min: (5) Type 2 diabetes mellitus: PLAN: RECOMMENDATIONS: 1. Continue Coreg 2. Increase Norvasc 3. Add baseline Xanax therapy 4. As needed hydralazine and labetalol 5. Consult PT/OT for evaluation and possible placement 6. Monitor saturations with therapy IMPRESSIONS: 1. Hypertensive urgency Unclear if patient's elevated blood pressures are secondary to noncompliance with baseline medications. Patient does not appear to have endorgan damage as chronic kidney disease is noted in her history. Baseline medications will be continued. Will attempt to address hypertension without nicardipine drip. Coreg will be continued, Norvasc will be increased with as needed labetalol and hydralazine. Patient does have renal dysfunction at baseline. Unclear if body aches are secondary to significant hypertension. We will also reinitiate patient Xanax therapy at home dosing as hypertension can be seen in withdrawal. 2. Failure to thrive/recent COVID-19 Patient appears to be doing well from a COVID-19 standpoint. It is unclear if patient really requires Decadron therapy as she is not requiring supplemental oxygen. Patient does have bilateral infiltrates, but these would be expected for 4 to 6 weeks at a minimum. Patient may have an element of debility secondary to recent illness. Agree with PT/OT evaluation. Would recommend monitoring saturations with therapy as patient could desaturate significantly with exertion. 3. CAD/paroxysmal A. fib/hyperlipidemia/hypothyroid ism/anxiety/depression/untreated DC/tobacco abuse Complicates care, management, recovery and prognosis. Okay to continue with baseline medications. Did stressed to the patient that noncompliance with DC therapy does increase her risk for complications. Could consider a nocturnal oximetry during the acute phase as patient may be having significant desaturation given infiltrates noted with recent COVID-19. Defer to hospitalist. Subjective Subjective Patient overall feels subjectively unchanged compared to previous. Patient has been tolerating room air and blood pressures were better yesterday evening. However, overnight, patient has had significant hypertension. Patient believes this is secondary to lack of Xanax and feels her blood pressure would improve with its reinitiation. Patient is reporting discomfort of her rectus abdominal musculature, but attributes this to coughing. No headache or focal neurologic deficits have been noted. Objective Data Objective Data Vital Signs: Vital Signs Temp Pulse Resp BP Pulse Ox 36.9 C 67 18 199/72 H 91 03/01/21 10:00 03/01/21 10:00 03/01/21 10:00 03/01/21 10:00 03/01/21 10:00 Oxygen Delivery Method Room Air Weight: 70.4 kg Body Mass Index (BMI) 29.7 Intake & Output: Intake and Output for Last 24 Hours 02/27/21 02/28/21 03/01/21 23:59 23:59 23:59 Intake Total 335.00 / 335.00 260 / 260 240 / 240 Output Total 500 / 500 Balance 335.00 / 335.00 -240 / -240 240 / 240 Lab / Micro Data Result Diagrams: 02/28/21 02:39 02/28/21 02:39 Micro: Microbiology 02/28/21 06:00 Urine, Clean Catch Legionella Antigen - Final 02/28/21 06:00 Urine, Clean Catch Streptococcus pneumoniae Antigen (M - Final 02/27/21 20:45 Mucosa - Nasopharyngeal Respiratory Panel (PCR) - Final Radiography Diagnostic Testing: Radiology Impression Venous Doppler Study 02/27/21 17:11 Interpretation Summary No evidence for acute deep venous thrombosis bilateral lower extremities with patent and compressible bilateral great saphenous veins. Ordering Physician: Eva Childs Performed By: Nuno Espino RVIsmael Physical Exam Const alert, oriented x3 and no apparent distress Constitutional Narrative: Some grimacing with movement in the bed General Appearance: cooperative and comfortable Exam Limitations: no limitations HEENT normocephalic, head/scalp atraumatic and moist oral mucous membranes Eyes PERRL, EOMs intact bilaterally and conjunctivae normal Neck no lymphadenopathy Chest inspection of chest normal Chest: symmetrical chest wall rise; Negative for crepitus Resp no use of accessory muscles Effort and Inspection: able to speak in complete sentences Auscultation: diminished lung sounds; Negative for rales, rhonchi or wheezes Cardio regular rate, regular rhythm, no murmurs, no rub and no gallops GI normal to inspection, nondistended, normoactive bowel sounds, soft to palpation, non-tender and non-distended Extremity normal to inspection Skin no rashes or lesions noted Neuro CN's II-XII intact bilaterally and moves all extremities Sensorium / Orientation: awake and alert Psych affect normal Charges/Coding Visit Charges Inpatient E&M: 99319 Subs Hosp L2
--- NOTE | 2021-03-01 12:44 | CHAPLAIN ---
Type of Pastoral Visit _x__ Initial Visit ___ Follow-up Visit ___ On-call Visit ___ General Patient Visit ___ Spiritual Assessment ___ Family Conference ___ Bereavement ___ Rapid Response ___ Code Blue ___ Other (describe below) Pastoral Care Referral From _x__ Patient ___ Family ___ Nurse ___ Physician ___ Athletic Events Scorer ___ Combination Machine Tool Operator ___ Other (describe below) Sacrament/Intervention _x__ Active listening ___ Anointing ___ Mandaeism ___ Bereavement ___ Communion _x__ [place] exploration ___ ___ Life review _x__ Prayer ___ Reconciliation ___ Sacrament of Sick _x__ Supportive presence ___ Wedding ___ Other (describe below) Pastoral Comments patient admits to being tired but doing ok; pt realizes she will need to go to SNF; pt expresses some concern about her family who are trying to provide for her, her , and the father of her children whom are all sick and COVID positive; pt has not been able to talk to her who is also a patient in this hospital; RN and this switchboard installer will try to make communication better for the couple if possible; pt welcomes prayer support
--- NOTE | 2021-03-01 14:00 | CASEMGMT ---
Addendum entered by Celeste Vega 03/01/21 16:27: BRIDGET received message from Odessa at [facility] ([phone]) stating they may be able to go off of when pt's COVID symptoms started, request clinicals be faxed from pt's previous visit at [facility] explaining pt's symptoms. BRIDGET faxed H+P to Odessa that detailed pt's COVID symptoms on 02/07/2021. BRIDGET recieved message from Cathleen at [facility] stating due to pt still having a non productive cough (COVID symptom) they would NOT be able to accept pt until Sunday the . BRIDGET placed a call to pt's daughter Yandy and updated her on above information. Yandy states she prefers [facility] as if pt needs retirement care she would like pt to be at [facility] regardless. BRIDGET informed Yandy that as soon as [facility] lets this worker know if they can accept pt, this worker will let her know. BRIDGET checked with yacht hand about pt's visitation per Yandy's request. Pt is allowed to have one visitor. BRIDGET updated Yandy of this. BRIDGET waiting for call back from Odessa at [facility]. Original Note: Social Work Note Pt's Rapid COVID test came back negative. BRIDGET placed a call to [facility] and spoke with Rosana. BRIDGET updated Rosana on referral and that pt did test negative for COVID today. Rosana states that it is corporate policy that they have to wait 10 days post Positive Covid test so the earliest that they could accept pt would be the 15 (pt's 10th day from positive test). BRIDGET placed a call to pt's daughter Yandy and updated her that pt's Rapid COVID came back negative but [facility] is stating they still wouldn't be able to accept pt until the 15 (Sunday). BRIDGET spoke with Yandy about [facility] and [facility]. Yandy agreeable to this worker sending referrals to both [facility] and [facility]. BRIDGET placed a call to Etienne at [facility] and left message asking if they would consider pt. BRIDGET waiting for call back. BRIDGET faxed referral to [facility]. BRIDGET placed a call to Cathleen at [facility] and updated her that pt's Rapid COVID came back negative, SW faxed referral to [facility]. Plan: SNF pending acceptance Celeste Vega FINANCIAL PLANNER, WINK CUTTER OPERATOR
--- NOTE | 2021-03-01 15:04 | PCM.PN.HOSP ---
Subjective Subjective Follow-up on debility/recent acute COVID-19 Patient was seen and examined. She complains of feeling weak. Discharge planning to custodial facility pending Objective Data Objective Data Vital Signs: Vital Signs Temp Pulse Resp BP Pulse Ox 98.0 F 60 16 150/69 H 91 03/01/21 14:23 03/01/21 14:23 03/01/21 14:23 03/01/21 14:23 03/01/21 14:23 Oxygen Delivery Method Room Air Weight: 70.4 kg Body Mass Index (BMI) 29.7 Intake & Output: Intake and Output for Last 24 Hours 02/27/21 02/28/21 03/01/21 23:59 23:59 23:59 Intake Total 335.00 / 335.00 260 / 260 240 / 240 Output Total 500 / 500 Balance 335.00 / 335.00 -240 / -240 240 / 240 Lab / Micro Data Result Diagrams: 02/28/21 02:39 02/28/21 02:39 Micro: Microbiology 03/01/21 11:30 Nasal Secretion SARS-CoV-2 Antigen (Rapid) - Final 02/28/21 06:00 Urine, Clean Catch Legionella Antigen - Final 02/28/21 06:00 Urine, Clean Catch Streptococcus pneumoniae Antigen (M - Final 02/27/21 20:45 Mucosa - Nasopharyngeal Respiratory Panel (PCR) - Final Radiography Diagnostic Testing: Radiology Impression Venous Doppler Study 02/27/21 17:11 Interpretation Summary No evidence for acute deep venous thrombosis bilateral lower extremities with patent and compressible bilateral great saphenous veins. Ordering Physician: Eva Childs Performed By: Nuno Espino RVT Physical Exam Narrative Physical exam: General: Alert, Oriented x3, Cooperative, No apparent distress, not on oxygen HEENT: Atraumatic Oral: Moist Mucosa Neck: Supple Lungs: Diminished to auscultation Cardiovascular: HS I+II, regular, no murmurs Abdomen: Bowel Sounds Present, Soft, Non Tender Extremities: No edema Assessment & Plan Assessment/Plan (1) Pneumonia due to COVID-19 virus: (2) FTT (failure to thrive) in adult: (3) Hypertensive urgency: PLAN: 1. Debility secondary to recent acute COVID-19 pneumonia Patient is not on oxygen. She is unable to care for self Continue on oral Decadron to complete previous discharge doses (discharged with 8 more doses); last dose is 03/04 PT/OT to evaluate Social work/case management consult 2. Hypertensive urgency, blood pressure better controlled Continue on Coreg 25 mg twice daily, amlodipine 10 mg daily Continue to monitor blood pressure 3. Elevated D-dimer, Doppler ultrasound lower extremities negative for acute DVT. 4. Rest of her chronic medical conditions including CAD status post stent/paroxysmal atrial fibrillation hyperlipidemia/hypothyroidism/anxiety/depression/DC/obesity all remained stable Continue on aspirin, statin, carvedilol Charges/Coding Visit Charges Inpatient E&M: 84187 Subs Hosp L2
[2021-03-01] MEDS: Pravastatin 20 MG Tablet PO (23:13)
[2021-03-01] MEDS: guaiFENesin 10 ML UDC (200MG/10ML) 20 ML PO (23:24)
[2021-03-02] VITALS (13 sets, daily range): BP systolic 151–215; BP diastolic 53–84; PULSE 56–69; RESP 16–18; TEMP 36.1–36.9; O2SAT 92–95
[2021-03-02] MEDS: hydrALAZINE 20 MG/ML Vial IV (02:11)
[2021-03-02] MEDS: ALPRAZolam 0.25 MG Tablet PO (05:39)
[2021-03-02] MEDS: hydrALAZINE 50 MG Tablet PO (05:43)
[2021-03-02] MEDS: Ipratropium/Albuterol Sulfate 3 ML AMPUL.NEB INHALATION (07:05)
[2021-03-02 07:11] LABS: Absolute Lymphocyte Count 2.16 X10^3/uL (0.83-4.51); Absolute Neutrophil Count 8.3 X10^3/uL (2.0-7.7); Basophil# 0.03 X10^3/uL; Basophil% 0.3 % (0-1); Hematocrit 33.8 % (37-47); Hemoglobin 11.2 g/dL (12.0-15.0); Lymphocyte # 2.16 X10^3/ul (0.83-4.51); Mean Corp Hgb Conc 33.1 g/dL (32-36); Mean Corpuscular Hgb 29.9 pg (27.0-32.0); Mean Corpuscular Volume 90.4 fL (81-99); Monocyte# 0.98 X10^3/uL; Monocyte% 8.2 % (0-10); NRBC Flagged by Analyzer 0 % (0-5); Neutrophil # 8.29 X10^3/uL (2.7-7.7); Platelet Count 308 K/mm3 (150-450); RBC Distribution Width CV 13.6 % (11.6-14.6); RBC Distribution Width SD 44.6 fl (35.1-43.9); Red Blood Count 3.74 M/mm3 (4.2-5.4)
[2021-03-02 07:35] LABS: ALB/GLOB Ratio 0.7 RATIO (0.9-2.4); AST(SGOT) 18 U/L (15-37); Alanine Aminotransfer ALT/SGPT 36 U/L (13-56); Albumin, Serum 2.5 g/dL (3.2-5.0); Alkaline Phosphatase 65 U/L (45-117); Anion Gap 7 (5-15); BUN 33 mg/dL (7-18); BUN/Creat Ratio 27.7 RATIO (10-20); Calcium,Total 8.5 mg/dL (8.5-10.1); Chloride 106 mmol/L (98-107); Creatinine, Serum 1.19 mg/dL (0.55-1.02); EST Glomerular Filtration Rate 47 mL/min (>60); Est Glom Filt Rate - Afr Amer 57 mL/min (>60); Estimated Creatinine Clearance 30.69 ml/min; Globulin 3.7 g/dL (2.2-4.2); Glucose 151 mg/dL (74-106); Potassium 3.6 mmol/L (3.5-5.1); Protein, Total 6.2 g/dL (6.4-8.2); Sodium Level 139 mmol/L (136-145)
--- NOTE | 2021-03-02 08:00 | CASEMGMT ---
Social Work Note SW received message from Micheline at [facility] stating they are able to accept pt. BRIDGET forwarded message to Courtney Vega POCKET ASSEMBLER, PETROLEUM INSPECTOR SUPERVISOR
--- NOTE | 2021-03-02 08:49 | PN.CC_ITS ---
Assessment & Plan Assessment/Plan (1) Hypertensive urgency: (2) FTT (failure to thrive) in adult: (3) Pneumonia due to COVID-19 virus: (4) CKD (chronic kidney disease) stage 3, GFR 30-59 ml/min: (5) Type 2 diabetes mellitus: PLAN: RECOMMENDATIONS: 1. Continue Coreg, Norvasc and Cozaar 2. Increase hydralazine and add clonidine 3. Consider nephrology consult for secondary work-up 4. As needed hydralazine and labetalol 5. Consult PT/OT for evaluation and possible placement 6. Monitor saturations with therapy IMPRESSIONS: 1. Hypertensive urgency Unclear if patient's elevated blood pressures are secondary to noncompl iance with baseline medications. Patient does not appear to have endorgan damage as chronic kidney disease is noted in her history. Baseline medications were continued, but patient continues to have systolic blood pressures over 200. Will attempt to address hypertension without nicardipine drip. Coreg and Norvasc will be continued with as needed labetalol and hydralazine. Add clonidine. Patient does have renal dysfunction at baseline. Unclear if body aches are secondary to significant hypertension. Addition of baseline Xanax therapy did not significantly help the blood pressure. 2. Failure to thrive/recent COVID-19 Patient appears to be doing well from a COVID-19 standpoint. It is unclear if patient really requires Decadron therapy as she is not requiring supplemental oxygen. Patient does have bilateral infiltrates, but these would be expected for 4 to 6 weeks at a minimum. Patient may have an element of debility secondary to recent illness. Agree with PT/OT evaluation. Would recommend monitoring saturations with therapy as patient could desaturate significantly with exertion. 3. CAD/paroxysmal A. fib/hyperlipidemia/hypot hyroidism/anxiety/depression/untreated DC/tobacco abuse Complicates care, management, recovery and prognosis. Okay to continue with baseline medications. Did stressed to the patient that noncompliance with DC therapy does increase her risk for complications. Could consider a noctu rnal oximetry during the acute phase as patient may be having significant desaturation given infiltrates noted with recent COVID-19. Defer to hospitalist. Subjective Subjective Patient did okay overnight. Patient denies any current chest pain, abdominal pain, nausea or vomiting. Patient states she is tired and stiff. Objective Data Objective Data Vital Signs: Vital Signs Temp Pulse Resp BP Pulse Ox 36.6 C 67 18 197/67 H 92 03/02/21 07:17 03/02/21 07:17 03/02/21 07:17 03/02/21 07:17 03/02/21 07:17 Oxygen Delivery Method Room Air Weight: 69.3 kg Body Mass Index (BMI) 29.7 Intake & Output: Intake and Output for Last 24 Hours 02/28/21 03/01/21 03/02/21 23:59 23:59 23:59 Intake Total 260 / 260 360 / 360 Output Total 500 / 500 Balance -240 / -240 360 / 360 Lab / Micro Data Result Diagrams: 03/02/21 06:48 03/02/21 06:48 Labs: Laboratory Results - last 24 hr 03/02/21 06:48: WBC 12.0 H, RBC 3.74 L, Hgb 11.2 L, Hct 33.8 L, MCV 90.4, MCH 29.9, MCHC 33.1, RDW Std Deviation 44.6 H, RDW Coeff of Souleymane 13.6, Plt Count 308, MPV 9.0, Immature Gran % (Auto) 4.500 H, Neut % (Auto) 69.0, Lymph % (Auto) 18.0 L, [place] % (Auto) 8.2, Eos % (Auto) 0.0, Baso % (Auto) 0.3, Absolute Neuts (auto) 8.3 H, Absolute Lymphs (auto) 2.16, Nucleated RBC % 0 03/02/21 06:48: Sodium 139, Potassium 3.6, Chloride 106, Carbon Dioxide 26.0, Anion Gap 7, BUN 33 H, Creatinine 1.19 H, Estim Creat Clear Calc 30.69, Est GFR (MDRD) Af Amer 57 L, Est GFR (MDRD) Non-Af 47 L, BUN/Creatinine Ratio 27.7 H, Glucose 151 H, Calcium 8.5, Total Bilirubin 1.00, AST 18, ALT 36, Alkaline Phosphatase 65, Total Protein 6.2 L, Albumin 2.5 L, Globulin 3.7, Albumin/Globulin Ratio 0.7 L Micro: Microbiology 03/01/21 11:30 Nasal Secretion SARS-CoV-2 Antigen (Rapid) - Final 02/28/21 06:00 Urine, Clean Catch Legionella Antigen - Final 02/28/21 06:00 Urine, Clean Catch Streptococcus pneumoniae Antigen (M - Final 02/27/21 20:45 Mucosa - Nasopharyngeal Respiratory Panel (PCR) - Final Physical Exam Const alert, oriented x3 and no apparent distress Constitutional Narrative: Some grimacing with movement in the bed General Appearance: cooperative and comfortable Exam Limitations: no limitations HEENT normocephalic, head/scalp atraumatic and moist oral mucous membranes Eyes PERRL, EOMs intact bilaterally and conjunctivae normal Neck no lymphadenopathy Chest inspection of chest normal Chest: symmetrical chest wall rise; Negative for crepitus Resp no use of accessory muscles Effort and Inspection: able to speak in complete sentences Auscultation: diminished lung sounds; Negative for rales, rhonchi or wheezes Cardio regular rate, regular rhythm, no murmurs, no rub and no gallops GI normal to inspection, nondistended, normoactive bowel sounds, soft to palpation, non-tender and non-distended Extremity normal to inspection Skin no rashes or lesions noted Neuro CN's II-XII intact bilaterally and moves all extremities Sensorium / Orientation: awake and alert Psych affect normal Charges/Coding Visit Charges Inpatient E&M: 54759 Subs Hosp L2
[2021-03-02] MEDS: amLODIPine 10 MG Tablet PO (10:37)
[2021-03-02] MEDS: dexAMETHasone 2 MG TABLET 6 MG PO (10:38)
[2021-03-02] MEDS: Losartan Potassium 50 MG Tablet PO (10:38)
[2021-03-02] MEDS: Enoxaparin 30 MG/0.3 ML Syringe SC (10:38)
[2021-03-02] MEDS: Levothyroxine 100 MCG Tablet PO (10:39)
[2021-03-02] MEDS: Aspirin E.C. 81 MG Tablet PO (10:39)
[2021-03-02] MEDS: Carvedilol 25 MG Tablet PO (10:39)
--- NOTE | 2021-03-02 11:13 | TREXTCAR_ITS ---
Diet 02/28/21 13:53 Diet: Carbohydrate Controlled Food consistency:: Regular Liquid Consistency:: Regular/Thin Dietary Modifications:: No Added Salt Type of Dietary Supplement:: Glucerna Shake Is pt able to select menu?: Yes Diet Comments: 120 ml chocolate glucerna shake w/ meals Routine Orders/Code Status Routine Lab Work: CBC (within 3 days) and BMP (within 3 days) Code Status: DNRCC-A Therapies Weight Bearing: Weight bearing as tolerated Physical Therapy: Eval and Treat Occupational Therapy: Eval and Treat Problem/Diagnosis (1) Hypertensive urgency: Status: Acute (2) FTT (failure to thrive) in adult: Status: Acute (3) Pneumonia due to COVID-19 virus: Status: Acute (4) CKD (chronic kidney disease) stage 3, GFR 30-59 ml/min: Status: Chronic (5) Type 2 diabetes mellitus: Status: Acute Allergies/Procedures Done in Hospital Allergies Penicillins Allergy (Severe, Verified 02/22/21 15:27) Rash Iodinated Contrast Media Allergy (Verified 02/22/21 17:00) Anaphylaxis Antihistamines - Alkylamine Adverse Reaction (Unknown, Verified 02/22/21 15:27) heart racing enalapril Adverse Reaction (Unknown, Verified 02/22/21 15:27) myalgias levothyroxine sodium [From Synthroid] Adverse Reaction (Unknown, Verified 02/22/21 15:27) fatigue metoprolol [From Lopressor] Adverse Reaction (Unknown, Verified 02/22/21 18:39) myalgias leg feel like concrete ANESTETICS Allergy (Uncoded 02/22/21 15:27) Swelling Procedures: - (doppler ultrasound of legs) Type of Care/Length of Stay Estimated LOS: Convalescent Care Less Than 30 days Type of Care Needed: Skilled Rehab Potential: Good Prognosis: Good Additional Orders/Day of Discharge Day of Discharge: 03/02/21 Dietary and Speech Recommendations Dietitian Recommendations/Changes: Will change diet to CHO Control/ No Added Salt diet d/t pmhx Will provide 120 ml chocolate glucerna shake w/ meals Discharge Plan Admission Admit Date/Time: 02/27/21 18:43 Primary Reason for Your Visit: Debility/Recent Acute COVID-19 infection Attending Provider: Landy Becerra Primary Care Provider: Gema Laura Consulting Providers: Angel Ng Discharge Orders/Prescriptions Prescriptions: New losartan 50 mg Tablet 50 mg PO BID 60 Days Qty: 120 RF: 0 carvedilol 25 mg Tablet 25 mg PO BID 30 Days Qty: 60 RF: 0 albuterol sulfate 2.5 mg /3 mL (0.083 %) Solution For Nebulization 2.5 mg inhalation Q2H PRN PRN (Reason: Dyspnea, wheezing) Qty: 0 RF: 0 amlodipine 10 mg Tablet 10 mg PO DAILY Qty: 0 RF: 0 hydralazine 50 mg Tablet 100 mg PO TID Qty: 0 RF: 0 Continued cholecalciferol (vitamin D3) 25 mcg (1,000 unit) tablet 25 mcg PO DAILY RF: 0 levothyroxine 100 mcg tablet 100 mcg PO DAILY RF: 0 nitroglycerin 0.4 mg tablet, sublingual 0.4 mg sublingual Q5-15M PRN (Reason: Chest Pain) RF: 0 pravastatin 40 mg tablet 20 mg PO QHS RF: 0 aspirin 81 MG tablet 81 mg PO DAILY@0800 RF: 0 dexamethasone 6 mg tablet 6 mg PO DAILY Qty: 2 RF: 0 alprazolam 0.5 mg tablet 0.25 mg PO DAILY PRN (Reason: Anxiety) 3 Days Qty: 3 RF: 0 Discontinued losartan [Cozaar] 50 mg tablet 25 mg PO BID RF: 0 carvedilol 25 mg tablet 12.5 mg PO BID RF: 0 Referrals / Follow Up: Gema Laura MD [Primary Care Provider] - Disposition Disposition (needs filled in before D/C Order can be placed): Retirement Facility
--- NOTE | 2021-03-02 11:22 | PCM.DC.SUM ---
Providers Date of Admission: 02/27/21 Date of Discharge: 03/02/21 Primary Care Physician: Dr. Gema Laura MD Consultations 02/27/21 18:43 Consult: Director Of [employer] / Pulmonary Medicine Routine Consulting Provider: Angel Ng Reason for Consult: HTN urgency, FTT w/ COVID PNA readmission, on cardene drip. EMERGENT Consult: No MD Notified: Yes Date Notified: 02/27/21 Time Notified: 17:59 Method of Notification: cortext Reason For Visit: FTT ADULT, COVID PNA, HYPOXIA Diagnosis Discharge Diagnosis (1) Hypertensive urgency: Status: Acute Code(s): I16.0 - Hypertensive urgency (2) FTT (failure to thrive) in adult: Status: Acute Code(s): R62.7 - Adult failure to thrive (3) Pneumonia due to COVID-19 virus: Status: Acute Code(s): U07.1 - COVID-19; J12.82 - Pneumonia due to coronavirus disease 2019 (4) CKD (chronic kidney disease) stage 3, GFR 30-59 ml/min: Status: Chronic Code(s): N18.30 - Chronic kidney disease, stage 3 unspecified (5) Type 2 diabetes mellitus: Status: Acute Code(s): E11.9 - Type 2 diabetes mellitus without complications Medications at Discharge Home Medications aspirin 81 mg PO DAILY@0800 08/03/16 levothyroxine 100 mcg tablet 100 mcg PO DAILY 12/28/20 nitroglycerin 0.4 mg sublingual tablet 0.4 mg SUBLINGUAL Q5-15M PRN 12/28/20 cholecalciferol (vitamin D3) 25 mcg (1,000 unit) tablet 25 mcg PO DAILY 12/29/20 pravastatin 40 mg tablet 20 mg PO QHS tab 12/29/20 albuterol sulfate 2.5 mg INHALATION Q2H PRN PRN #0 ml 03/02/21 alprazolam 0.25 mg PO DAILY PRN 3 Days #3 tab 03/02/21 amlodipine 10 mg PO DAILY #0 tab 03/02/21 carvedilol 25 mg PO BID 30 Days #60 tab 03/02/21 dexamethasone 6 mg PO DAILY #2 tab 03/02/21 hydralazine 100 mg PO TID #0 tab 03/02/21 losartan 50 mg PO BID 60 Days #120 tab 03/02/21 Hospital Course Operations None Procedures None Summary of Care Provided Minutes Spent on Discharge: 45 Hospital Course: 70-year-old female with multiple comorbidities who was recently admitted on 02/22/21 with acute hypoxic respiratory failure secondary to acute COVID-19 pneumonia. During the admission. Patient had refused to go to fdc facility on account of weakness. She was discharged home. She however has been extremely weak, unable to care for herself at home. She is willing to be discharged for subacute rehab. Her admitting blood work was unremarkable. Patient had issues with blood pressure control during this admission. Changes were made to her blood pressure medication. Patient was accepted for discharge to [facility]. Physical Exam Narrative Physical exam: General: Alert, Oriented x3, Cooperative, No apparent distress, not on oxygen HEENT: Atraumatic Oral: Moist Mucosa Neck: Supple Lungs: Diminished to auscultation Cardiovascular: HS I+II, regular, no murmurs Abdomen: Bowel Sounds Present, Soft, Non Tender Extremities: No edema Weight / BMI Weight Weight: 69.3 kg Body Mass Index (BMI) 29.7 ABG / Lab / Microbiology Data Result Diagrams: 03/02/21 06:48 03/02/21 06:48 Laboratory: Laboratory Results - last 24 hr 03/02/21 06:48: WBC 12.0 H, RBC 3.74 L, Hgb 11.2 L, Hct 33.8 L, MCV 90.4, MCH 29.9, MCHC 33.1, RDW Std Deviation 44.6 H, RDW Coeff of [place] 13.6, Plt Count 308, MPV 9.0, Immature Gran % (Auto) 4.500 H, Neut % (Auto) 69.0, Lymph % (Auto) 18.0 L, [place] % (Auto) 8.2, Eos % (Auto) 0.0, Baso % (Auto) 0.3, Absolute Neuts (auto) 8.3 H, Absolute Lymphs (auto) 2.16, Nucleated RBC % 0 03/02/21 06:48: Sodium 139, Potassium 3.6, Chloride 106, Carbon Dioxide 26.0, Anion Gap 7, BUN 33 H, Creatinine 1.19 H, Estim Creat Clear Calc 30.69, Est GFR (MDRD) Af Amer 57 L, Est GFR (MDRD) Non-Af 47 L, BUN/Creatinine Ratio 27.7 H, Glucose 151 H, Calcium 8.5, Total Bilirubin 1.00, AST 18, ALT 36, Alkaline Phosphatase 65, Total Protein 6.2 L, Albumin 2.5 L, Globulin 3.7, Albumin/Globulin Ratio 0.7 L Microbiology: Microbiology 03/01/21 11:30 Nasal Secretion SARS-CoV-2 Antigen (Rapid) - Final 02/28/21 06:00 Urine, Clean Catch Legionella Antigen - Final 02/28/21 06:00 Urine, Clean Catch Streptococcus pneumoniae Antigen (M - Final 02/27/21 20:45 Mucosa - Nasopharyngeal Respiratory Panel (PCR) - Final D/C Instructions Discharge Diet: Low fat / Low cholesterol and 2000 mg Sodium Diet Discharge Activity: Return to Normal Activity Meaningful Use Info Meaningful Use Diagnoses (Choose all that apply): None applicable Discharge Plan Admission Admit Date/Time: 02/27/21 18:43 Primary Reason for Your Visit: Debility/Recent Acute COVID-19 infection Attending Provider: Landy Becerra Primary Care Provider: Gema Laura Consulting Providers: Angel Ng Discharge Orders/Prescriptions Prescriptions: New losartan 50 mg Tablet 50 mg PO BID 60 Days Qty: 120 RF: 0 carvedilol 25 mg Tablet 25 mg PO BID 30 Days Qty: 60 RF: 0 albuterol sulfate 2.5 mg /3 mL (0.083 %) Solution For Nebulization 2.5 mg inhalation Q2H PRN PRN (Reason: Dyspnea, wheezing) Qty: 0 RF: 0 amlodipine 10 mg Tablet 10 mg PO DAILY Qty: 0 RF: 0 hydralazine 50 mg Tablet 100 mg PO TID Qty: 0 RF: 0 Continued cholecalciferol (vitamin D3) 25 mcg (1,000 unit) tablet 25 mcg PO DAILY RF: 0 levothyroxine 100 mcg tablet 100 mcg PO DAILY RF: 0 nitroglycerin 0.4 mg tablet, sublingual 0.4 mg sublingual Q5-15M PRN (Reason: Chest Pain) RF: 0 pravastatin 40 mg tablet 20 mg PO QHS RF: 0 aspirin 81 MG tablet 81 mg PO DAILY@0800 RF: 0 dexamethasone 6 mg tablet 6 mg PO DAILY Qty: 2 RF: 0 alprazolam 0.5 mg tablet 0.25 mg PO DAILY PRN (Reason: Anxiety) 3 Days Qty: 3 RF: 0 Discontinued losartan [Cozaar] 50 mg tablet 25 mg PO BID RF: 0 carvedilol 25 mg tablet 12.5 mg PO BID RF: 0 Referrals / Follow Up: Gema Laura MD [Primary Care Provider] - Disposition Disposition (needs filled in before D/C Order can be placed): Group Home Facility Charges/Coding Visit Charges Inpatient E&M: 79764 Disch Hosp
--- NOTE | 2021-03-02 12:14 | CASEMGMT ---
Pt is ready for discharge today to [facility], SW spoke w/[place] at [facility] and they can take pt today. SW completed the hospital exemption in the HENS. SW faxed all discharge paperwork to [facility], schedule II script [facility]. SW spoke w/pt, she is okay with going to [facility] via wheelchair. SW let pt, daughter and Odessa at [facility] know time of pickup, 4pm. SW also did let daughter Yandy know pt will get a bill for the transport, Yandy states understanding. No further needs, pt to [facility] today, convalescent stay and skilled level of care. HUDSON Blount
[2021-03-02] MEDS: hydrALAZINE 50 MG Tablet 100 MG PO (15:39)
== END 2021-03-02 16:25 | disposition skilled nursing facility (03) | DRG 304 ==
LOC: ED 16:17 → ICU 18:14 → MS2 02-28 07:14 → ICU 03-01 12:28 → MS2 03-01 12:28
PROVIDERS: Admitting Provider Family Medicine; Emergency Provider Emergency Medicine; PCP Internal Medicine; Visit Provider Internal Medicine
DX: I16.0 Hypertensive urgency (principal); U07.1 COVID-19; J12.82 Pneumonia due to coronavirus disease 2019; R09.02 Hypoxemia; E03.9 Hypothyroidism, unspecified; I12.9 Hypertensive chronic kidney disease with stage 1 through stage 4 chronic kidney disease, or unspecified chronic kidney disease; E11.22 Type 2 diabetes mellitus with diabetic chronic kidney disease; R53.81 Other malaise; R79.89 Other specified abnormal findings of blood chemistry; N18.31 Chronic kidney disease, stage 3a; E78.00 Pure hypercholesterolemia, unspecified; E78.1 Pure hyperglyceridemia; E78.5 Hyperlipidemia, unspecified; E66.9 Obesity, unspecified; Z68.29 Body mass index [BMI] 29.0-29.9, adult; F32.A Depression, unspecified; I34.1 Nonrheumatic mitral (valve) prolapse; F41.9 Anxiety disorder, unspecified; G47.33 Obstructive sleep apnea (adult) (pediatric); I25.10 Atherosclerotic heart disease of native coronary artery without angina pectoris; I48.0 Paroxysmal atrial fibrillation; K21.9 Gastro-esophageal reflux disease without esophagitis; R62.7 Adult failure to thrive; Z66 Do not resuscitate; I25.2 Old myocardial infarction; M19.90 Unspecified osteoarthritis, unspecified site; Z87.442 Personal history of urinary calculi; Z91.19 Patient's noncompliance with other medical treatment and regimen; Z91.14 Patient's other noncompliance with medication regimen; Z87.19 Personal history of other diseases of the digestive system; Z95.5 Presence of coronary angioplasty implant and graft; Z79.82 Long term (current) use of aspirin; Z79.899 Other long term (current) drug therapy; F17.210 Nicotine dependence, cigarettes, uncomplicated
CPT/HCPCS: 36415; 70450; 71045; 80048; 80053; 80076; 81001; 82728; 82962; 83605; 83615; 83880; 84145; 84484; 85025; 85379; 86140; 87040; 87426; 87449; 87633; 87635; 93005; 93970; 94640; 94762; 96361; 96372; 96374; 96375; 96376; 97162; 97166; 97530; 97535; 97802; 99218; 99251; 99285; 99406; J7030; J7040; U0005; A4216; G0378; G0463; U0003

== ENCOUNTER 2021-08-12 00:30 | Inpatient (IN) | payer MEDICARE, OTHER, SELFPAY ==
[2021-08-12] VITALS (14 sets, daily range): BP systolic 113–212; BP diastolic 45–88; PULSE 69–79; RESP 16–18; TEMP 36.6–38.2; O2SAT 91–100; BMI 29.2
--- NOTE | 2021-08-12 01:40 | CT_ITS ---
STUDY: CT ABDOMEN AND PELVIS WITHOUT CONTRAST ENHANCEMENT 0146 HOURS ON 08/12/2021 REASON FOR EXAM: 71-year-old female with flank pain. RADIATION DOSAGE (If Supplied By Facility): CTDIvol = ( 7.85 ) mGy, DLP = ( 353.15 ) mGycm TECHNIQUE: Transaxial images were obtained from the dome of the diaphragm to the symphysis pubis without oral contrast, and without intravenous contrast. Sagittal and coronal images were reconstructed. Individualized dose optimization techniques were used for this CT. COMPARISON: 12/08/2020. FINDINGS: The visualized lung bases are unremarkable. Borderline to mild cardiomegaly. Normal liver. No cholelithiasis or cholecystitis. No dilatation of the intrahepatic biliary system or common bile duct. Normal spleen. Normal pancreas. No pancreatitis or pancreatic mass lesions. Normal bilateral adrenal glands. Moderate right hydronephrosis and right hydroureter to a 7 mm diameter calculus at the right ureterovesical junction. In addition, there are seven calculi measuring 6 to 4 mm in diameter and a superior pole calyx of the right kidney. There are 5 calculi, each measuring 4 mm in diameter and a lateral upper pole calyx of the right kidney. There is a 7 mm diameter non-obstructing calculus in a medial upper pole calyx of the right kidney. An, there is a 2 mm diameter calcification or calculus in region of mid pole calyx right kidney. There is no evidence of left renal calcifications or calculi. There is no evidence of renal cystic or solid mass lesions. Normal bladder. Normal visualized stomach. Normal small intestine. No diverticulitis, colitis, or intestinal obstruction. The appendix is visualized and appears normal. There is no evidence of an appendicitis. Extensively calcified abdominal aorta without aneurysmal dilatation.. Normal inferior vena cava. Normal retroperitoneum. Normal anteverted uterus. No ovarian cystic or solid mass lesions. Normal abdominal wall. Moderate narrowing of the C2-3 and L5-S1 intervertebral disc spaces. No lumbar vertebral body fractures or subluxations. Normal hips and pelvic bones. CT/Abdomen/Pelvis without Cont IMPRESSION: 1. Right obstructive uropathy secondary to a 7 mm diameter calculus at the right ureterovesical junction. 2. Presence of 13 non-obstructing calculi in upper pole calyces of the right kidney varying from 7 mm to 4 mm in diameter. Additional 2 mm diameter midpole calcification or non-obstructing calculus. 3. No evidence of left renal calcification calculi. 4. No evidence of renal cystic or solid mass lesions. 5. Normal bladder. 6. No appendicitis, diverticulitis, colitis, or talus obstruction. 7. No cholecystitis or pancreatitis. Electronically Signed: Jerry Bradshaw MD at 2:27 EDT ,
--- NOTE | 2021-08-12 03:29 | ED.VIS.GI ---
HPI HPI - GI History of Present Illness Informant: patient Narrative Narrative: Late dictation due to downtime. This was dictated while patient still in the emergency department. Presents setting right lower quadrant pain rating to her back nausea and vomiting. No hematemesis. History of multiple kidney stones with no interventions. Followed by Dr. Zamora. Last seen a year ago. Reports hematuria and frequency 5 days ago saw urgent care placed on Keflex. Hematuria improve initially however this evening increased hematuria with pain. No fevers. Reports multiple sensitivities to medications and does not like opiates. She denied any history of kidney injury or kidney disease or any stomach ulcers during evaluation. Also states there is a rash on her forehead that was painful initially a week ago, daughter states this is improving. Elevated blood pressure on arrival denied headache chest pains. She states she may have not been able hold her night medicines and blood pressure be up typically will improve with her Xanax. Prior similar symptoms: Yes PFSH PFSH Medical History Acute biliary pancreatitis Arthritis Atherosclerotic heart disease of [place] coronary artery without angina pectoris Atrial fibrillation CKD (chronic kidney disease) stage 3, GFR 30-59 ml/min Essential hypertension Facet arthropathy, lumbar GERD (gastroesophageal reflux disease) Heart murmur High cholesterol High triglycerides History of chest pain HLD (hyperlipidemia) Hypertension Hypothyroidism Irregular heart beat Kidney stones Myocardial infarct Osteoarthritis Parathyroid abnormality Presence of stent in coronary artery (~10/29/12) Home Medications aspirin 81 mg PO DAILY@0800 08/03/16 [History Last Taken 02/21/21] levothyroxine 100 mcg tablet 100 mcg PO DAILY 12/28/20 [History Last Taken 02/22/21] nitroglycerin 0.4 mg sublingual tablet 0.4 mg SUBLINGUAL Q5-15M PRN 12/28/20 [History Last Taken Unknown] cholecalciferol (vitamin D3) 25 mcg (1,000 unit) tablet 25 mcg PO DAILY 12/29/20 [History Last Taken 02/22/21] pravastatin 40 mg tablet 20 mg PO QHS tab 12/29/20 [History Last Taken 02/21/21] albuterol sulfate 2.5 mg INHALATION Q2H PRN PRN #0 ml 03/02/21 [Rx Last Taken Unknown] alprazolam 0.25 mg PO DAILY PRN 3 Days #3 tab 03/02/21 [Rx Last Taken Unknown] amlodipine 10 mg PO DAILY #0 tab 03/02/21 [Rx Last Taken Unknown] carvedilol 25 mg PO BID 30 Days #60 tab 03/02/21 [Rx Last Taken Unknown] dexamethasone 6 mg PO DAILY #2 tab 03/02/21 [Rx Last Taken Unknown] hydralazine 100 mg PO TID #0 tab 03/02/21 [Rx Last Taken Unknown] losartan 50 mg PO BID 60 Days #120 tab 03/02/21 [Rx Last Taken Unknown] Allergy/AdvReac Type Severity Reaction Status Date / Time Penicillins Allergy Severe Rash Verified 02/22/21 15:27 Iodinated Contrast Media Allergy Anaphylaxis Verified 02/22/21 17:00 Antihistamines - Alkylamine AdvReac Unknown heart Verified 02/22/21 15:27 racing enalapril AdvReac Unknown myalgias Verified 02/22/21 15:27 levothyroxine sodium AdvReac Unknown fatigue Verified 02/22/21 15:27 [From Synthroid] metoprolol [From Lopressor] AdvReac Unknown myalgias Verified 02/22/21 18:39 ANESTETICS Allergy Swelling Uncoded 02/22/21 15:27 Family History Mother Heart disease Hypertension HLD (hyperlipidemia) Father Cancer Patient states spider cancer. Surgical History History of tonsillectomy Presence of coronary angioplasty implant and graft (~10/29/12) Social History household members: spouse Smoking Status: Current every day smoker tobacco type: cigarettes how long ago did patient quit smoking: Ongoing tobacco use since teenager, 05/22 ppd. alcohol intake: never substance use type: does not use caffeine: Yes Type: carbonated beverages, coffee and tea what type of physical activity do you participate in: none ROS ROS ED Constitutional Constitutional ED: Denies chills, fever(s) or sweats Eyes Eyes: Denies change in vision ENT ENT ED: Denies dysphagia or sore throat Cardiovascular Cardiovascular: Denies chest pain, leg edema, palpitations or racing heartbeat Respiratory/Chest Respiratory/Chest: Denies cough, dyspnea or dyspnea on exertion Gastrointestinal Gastrointestinal: Reports abdominal pain, nausea and vomiting; Denies diarrhea Genitourinary Genitourinary ED: Denies dysuria, hematuria or urinary frequency Musculoskeletal Musculoskeletal: Denies back pain, extremity pain or neck pain Integumentary Reports rash; Denies wounds Neurologic Neurologic: Denies headache(s), paresthesias or weakness EXAM Physical Exam Const Positive well nourished and well developed General Appearance ED: well developed and NAD HEENT Reports moist mucous membranes HEENT Narrative: Rash on right forehead vesicles with scabbing does extend into the scalp does not cross midline. normocephalic Eyes PERRL, EOMs intact bilaterally and conjunctivae normal Eyes Narrative: Fluorescein stain of the right eye showed no dendritic lesions. General Eye ED: Yes normal appearance of both eyes Neck no lymphadenopathy and supple General: Negative for tenderness Chest Wall Chest: Negative for tenderness Resp normal respiratory effort and normal air movement Effort and Inspection: symmetric chest movement; Negative for respiratory distress Cardio regular rate, regular rhythm and no murmurs Peripheral Pulses: pulses 2+ throughout GI normal to inspection, nondistended, normoactive bowel sounds GI Narrative: Tender right lower quadrant to her side there is no rash in the region. Palpation: Negative for guarding or rebound tenderness present Back/Spine no CVA tenderness and no thoracic nor lumbar tenderness Extremity normal to inspection General Extremety ED: Negative for edema or tenderness General Extremity: Negative for edema Neuro oriented x3 and no sensory deficits noted Sensorium / Orientation: awake and alert Skin no rashes or lesions noted and no wounds MDM MDM MDM Narrative Medical decision making narrative: Patient was hypertensive on evaluation 241/93. Nausea and vomiting. She given fluids Toradol Zofran due to reported no chronic kidney history and did not want opiates. This controlled her symptoms. Blood work White count 9.7 hemoglobin 12.6 potassium 3.7 sodium 140 creatinine 1.28. Typically around her baseline. Urine did note 500 leukocytes greater than 100 WBCs greater than 100 RBCs urine culture was also sent initially. She is covered with Rocephin antibiotics. Her CT scan returned per radiology a 7 mm right UVJ stone with hydronephrosis. Blood pressure remained elevated 230 systolic on reevaluation she states she preferred taking a Xanax which helps her blood pressure therefore there was ordered at 0.25 mg that she takes at home. She has shingles rash right ophthalmic branch with no dendritic lesion to the eye. Patient and daughter states rash seems to be improving its been over a week there to be no benefits at this time with viral or steroids due to improving symptoms with no significant pain. She is a diabetic her glucose was 144. I spoke with Dr. Zamora, due to her accelerated hypertension shingles he would like admission to medicine with keeping her n.p.o. for stent in the morning. I spoke with Dr. Boss updated on patient's presentation and findings. She is admitted to medicine service. Radiography Diagnostic Testing: Clinical Impression(s) from Imaging Studies Abdomen/Pelvis CT 08/12/21 01:40 IMPRESSION: 1. Right obstructive uropathy secondary to a 7 mm diameter calculus at the right ureterovesical junction. 2. Presence of 13 non-obstructing calculi in upper pole calyces of the right kidney varying from 7 mm to 4 mm in diameter. Additional 2 mm diameter midpole calcification or non-obstructing calculus. 3. No evidence of left renal calcification calculi. 4. No evidence of renal cystic or solid mass lesions. 5. Normal bladder. 6. No appendicitis, diverticulitis, colitis, or talus obstruction. 7. No cholecystitis or pancreatitis. Electronically Signed: Jerry Bradshaw MD at 2:27 EDT , Discharge Plan Triage ED Provider: Eric Whitten Dx/Rx/DC Orders Clinical Impression: Urolithiasis, Acute UTI, Accelerated hypertension, Ophthalmic herpes zoster infection Prescriptions: No Action cholecalciferol (vitamin D3) 25 mcg (1,000 unit) tablet 25 mcg PO DAILY RF: 0 levothyroxine 100 mcg tablet 100 mcg PO DAILY RF: 0 nitroglycerin 0.4 mg tablet, sublingual 0.4 mg sublingual Q5-15M PRN (Reason: Chest Pain) RF: 0 pravastatin 40 mg tablet 20 mg PO QHS RF: 0 aspirin 81 MG tablet 81 mg PO DAILY@0800 RF: 0 losartan 50 mg Tablet 50 mg PO BID 60 Days Qty: 120 RF: 0 carvedilol 25 mg Tablet 25 mg PO BID 30 Days Qty: 60 RF: 0 albuterol sulfate 2.5 mg /3 mL (0.083 %) Solution For Nebulization 2.5 mg inhalation Q2H PRN PRN (Reason: Dyspnea, wheezing) Qty: 0 RF: 0 amlodipine 10 mg Tablet 10 mg PO DAILY Qty: 0 RF: 0 hydralazine 50 mg Tablet 100 mg PO TID Qty: 0 RF: 0 dexamethasone 6 mg tablet 6 mg PO DAILY Qty: 2 RF: 0 alprazolam 0.5 mg tablet 0.25 mg PO DAILY PRN (Reason: Anxiety) 3 Days Qty: 3 RF: 0 Primary Care Provider: Gema Laura Referrals: Gema Laura MD [Primary Care Provider] - Disposition Disposition: Acute Care Hospital [facility]
--- NOTE | 2021-08-12 03:46 | EKG12_ITS ---
Test Reason : FLANK PAIN Blood Pressure : / mmHG Vent. Rate : 074 BPM Atrial Rate : 074 BPM P-R Int : 168 ms QRS Dur : 096 ms QT Int : 446 ms P-R-T Axes : 053 -07 031 degrees QTc Int : 495 ms Normal sinus rhythm Normal ECG Confirmed by JENNIFER SWARTZ, EARL ([id number]), industrial editor GILBERTO PARDO ([id number]) on 08/15/2021 10:32:34 AM Referred By: Confirmed By:EARL RODRIGUEZ MD
--- NOTE | 2021-08-12 03:56 | HP.PCM.HOS_ITS ---
[facility] - General General Date of Admission: 08/12/21 Date of Service: 08/12/21 Chief Complaint: Right lower quadrant abdominal pain for 1 day. Recurrent UTI. High blood pressure. [facility] Narrative GAYLE CHO, is a 71 F was brought to ED for severe right lower quadrant abdominal pain that is started last night. Patient describes her abdominal pain, 10/10 intensity, intermittent, colicky with radiation to right groin and urinary bladder. She has history of kidney and ureteric stone for about 20 years but never had had ureteric stent. As patient described it seems patient was recommended nephrolithotripsy or nephrostomy for stone retraction which did not did not do it because of high anesthesia risk. She said she had one-time cardiac arrest after surgery. Past medical history does not mention cardiac arrest but coronary artery status post 2 stents in 2011. This time she had hematuria about 7 days ago which got better with 5 days of Keflex. After completion of Keflex, she started having burning micturition and hematuria again. In ED she was also found to have high blood pressure 241/93, 235/91, heart rate 6121/min. No hypoxia or tachypnea. Afebrile. Patient stated usually her blood pressure in normal range but it gets high during ER and hospital visit and also due to pain and anxiety. As patient came to ER during downtime therefore no electronic labs vitals noticed on the paper chart. Labs reviewed. No leukocytosis. BMP shows potassium 3.5, sodium 140. BUN 17, creatinine 1.28, BUN/creatinine ratio 13.3. Glucose 144. UA reported SG 1.025, pH 6, nitrite negative, LE 500, protein 500. WBC more than 100 cells, RBC more than 100 cells. ON LICENSE OF [facility] Medical History Acute biliary pancreatitis Arthritis Atherosclerotic heart disease of [place] coronary artery without angina pectoris Atrial fibrillation CKD (chronic kidney disease) stage 3, GFR 30-59 ml/min Essential hypertension Facet arthropathy, lumbar GERD (gastroesophageal reflux disease) Heart murmur High cholesterol High triglycerides History of chest pain HLD (hyperlipidemia) Hypertension Hypothyroidism Irregular heart beat Kidney stones Myocardial infarct Osteoarthritis Parathyroid abnormality Presence of stent in coronary artery (~10/29/12) Home Medications aspirin 81 mg PO DAILY@0800 08/03/16 [History Last Taken 02/21/21] levothyroxine 100 mcg tablet 100 mcg PO DAILY 12/28/20 [History Last Taken 02/22/21] nitroglycerin 0.4 mg sublingual tablet 0.4 mg SUBLINGUAL Q5-15M PRN 12/28/20 [History Last Taken Unknown] cholecalciferol (vitamin D3) 25 mcg (1,000 unit) tablet 25 mcg PO DAILY 12/29/20 [History Last Taken 02/22/21] pravastatin 40 mg tablet 20 mg PO QHS tab 12/29/20 [History Last Taken 02/21/21] albuterol sulfate 2.5 mg INHALATION Q2H PRN PRN #0 ml 03/02/21 [Rx Last Taken Unknown] alprazolam 0.25 mg PO DAILY PRN 3 Days #3 tab 03/02/21 [Rx Last Taken Unknown] amlodipine 10 mg PO DAILY #0 tab 03/02/21 [Rx Last Taken Unknown] carvedilol 25 mg PO BID 30 Days #60 tab 03/02/21 [Rx Last Taken Unknown] dexamethasone 6 mg PO DAILY #2 tab 03/02/21 [Rx Last Taken Unknown] hydralazine 100 mg PO TID #0 tab 03/02/21 [Rx Last Taken Unknown] losartan 50 mg PO BID 60 Days #120 tab 03/02/21 [Rx Last Taken Unknown] Allergy/AdvReac Type Severity Reaction Status Date / Time Penicillins Allergy Severe Rash Verified 02/22/21 15:27 Iodinated Contrast Media Allergy Anaphylaxis Verified 02/22/21 17:00 Antihistamines - Alkylamine AdvReac Unknown heart Verified 02/22/21 15:27 racing enalapril AdvReac Unknown myalgias Verified 02/22/21 15:27 levothyroxine sodium AdvReac Unknown fatigue Verified 02/22/21 15:27 [From Synthroid] metoprolol [From Lopressor] AdvReac Unknown myalgias Verified 02/22/21 18:39 ANESTETICS Allergy Swelling Uncoded 02/22/21 15:27 Family History Mother Heart disease Hypertension HLD (hyperlipidemia) Father Cancer Patient states spider cancer. Surgical History History of tonsillectomy Presence of coronary angioplasty implant and graft (~10/29/12) Social History household members: spouse Smoking Status: Current every day smoker tobacco type: cigarettes how long ago did patient quit smoking: Ongoing tobacco use since teenager, 1/2 ppd. alcohol intake: never substance use type: does not use caffeine: Yes Type: carbonated beverages, coffee and tea what type of physical activity do you participate in: none ROS ROS Narrative Constitutional: Reports fatigue and weakness. No fever. HEENT: Shingles lesion healed over right temporal and facial region. Reports systems reviewed and no addt'l complaints, except as documented Respiratory/Chest: Denies chest pain, shortness of breath at rest. Sometimes shortness of breath on exertion but denies orthopnea/PND. Gastrointestinal: Nausea. Vomiting mainly last retained food about 5-6 times. Soft bowel movement. Sometimes constipation. Genitourinary: As mentioned in HPI Musculoskeletal: Reports joint pain and limited range of motion Neurologic: No paresthesia, numbness or tingling or neurogenic pain due to shingles. Denies seizure-like activity skin: No ulcer. No rash Endocrinology: Reports systems reviewed and no addt'l complaints, except as documented Hematologic/Lymphatic: Reports systems reviewed and no addt'l complaints, except as documented Rest 14 ROS are negative except as mentioned in HPI Vital Signs Vital Signs Vital Signs: As mentioned in HPI Physical Exam Narrative General: Alert, Oriented x3, Cooperative HEENT: Atraumatic, PERRLA, EOMI, Normocephalic. ED physician did eye exam with fluorescein stain and no dendritic lesions noted in cornea. Oral: Oral mucosa dry. No Gingival or Mucosal Lesions/ Ulcerations Neck: Supple, No JVD, Negative Carotid Bruits Lungs: Air entry diminished in bilateral lung bases. No crepitation/rhonchi Cardiovascular: Regular rate, Regular Rhythm, Normal S1, Normal S2, systolic murmur right great second ICS and LLSB Abdomen: Right lower quadrant tenderness. No guarding/rigidity. Bowel Sounds Present, Soft. : Right lumbar/renal angle tenderness. Mild suprapubic tenderness. Dysuria and hematuria. Extremities: Mild bilateral ankle pitting edema, Capillary Refill Less than 3 Seconds Skin: Pinkish/reddish healed vesicular lesions over right bahai and forehead suggestive of healed shingles. No tenderness. Musculoskeletal: No Tenderness to Palpation of Joints or Extremities Neurological: Cranial nerves II-XII grossly intact, DTR 2+/4 and Symmetrical, Neuro grossly intact Psych/Mental Status: Normal Affect, Appropriate Results Radiology Impression Abdomen/Pelvis CT 08/12/21 01:40 IMPRESSION: 1. Right obstructive uropathy secondary to a 7 mm diameter calculus at the right ureterovesical junction. 2. Presence of 13 non-obstructing calculi in upper pole calyces of the right kidney varying from 7 mm to 4 mm in diameter. Additional 2 mm diameter midpole calcification or non-obstructing calculus. 3. No evidence of left renal calcification calculi. 4. No evidence of renal cystic or solid mass lesions. 5. Normal bladder. 6. No appendicitis, diverticulitis, colitis, or talus obstruction. 7. No cholecystitis or pancreatitis. Electronically Signed: Jerry Bradshaw MD at 2:27 EDT , Assessment & Plan Assessment/Plan (1) Acute UTI: (2) Accelerated hypertension: (3) Right distal ureteral calculus: PLAN: 1. Infected right ureterovesical calculus with complicated UTI/cystitis: CT abdomen done in the ER without contrast shows 7 mm stone at right UV junction with right obstructive uropathy. 13 nonobstructing calculi in the upper pole calyces of right kidney varying from 7 mm to 4 mm in diameter. No evidence of left renal calcification. No renal cystic or solid mass lesion. Normal bladder. ER physician discussed with urologist Dr. Zamora and and plan for cystoscopy with right retrograde stenting in the morning. Clinically patient has UTI and UA consistent with UTI. Patient started on Rocephin in the ED and will continue it. Follow-up blood cultures x2 and urine culture. Patient does not have features of sepsis including no leukocytosis, fever or hypotension or altered mental status. 2. Accelerated hypertension/hypertensive urgency: Patient had Xanax in ED but I do not think is going to make a difference. Home medications resumed including carvedilol 25 mg p.o. twice daily first dose now, hydralazine 100 mg 3 times daily, losartan 50 mg twice daily and amlodipine 10 mg daily. IV hydralazine 10 mg q. 4 hourly as needed for systolic blood pressure more than 180 mmHg, first dose now. Patient denies headache, eye symptoms or increase in creatinine more than her baseline. 3. CKD stage IIIb: UA shows proteinuria but may be confounded due to UTI. Patient creatinine 1.28 is on baseline with previous labs in March 10 shows similar between 1.2-1.27. Monitor kidney function electrolytes. Sodium potassium are normal range. Because of high blood pressure started on half- normal saline to correct dehydration 4. Coronary artery status post stents, paroxysmal A. fib: Twelve-lead EKG ordered 5. Other multiple comorbidities include dyslipidemia, hypothyroidism, anxiety, depression, obstructive sleep apnea on CPAP, obesity grade 1: Home medication reconciliation done. Patient is still smokes half pack cigarettes since teenage. Smoking cessation counseling done. She does not want any help or nicotine patch. VTE prophylaxis, moderate risk: Lovenox 40 mg subcu daily in the evening after surgery is done. Bilateral SCDs Living will/advanced directive/end of life care: Patient does not have living will or advanced directive. I discussed with patient and her daughter near the bedside. After discussion of benefits/risks procedures involved with full code, DNR CC arrest and DNR CC, the patient and her daughter does not want life support measures including intubation, ventilator and CPR. Patient doesn't want artificial life support including intubation, tube feed, ventilator and/chest compression, central venous catheter, vasopressor and DC shock if needed Total time spent in [id number] encounter in discussion of advanced directive 16 minutes. Charges/Coding Visit Charges Inpatient E&M: 20495 Init Hosp L3 Procedures Hospitalists Procedures: 70800 Advncd Care Plan 30 Min
--- NOTE | 2021-08-12 04:18 | RAD_ITS ---
STUDY: X-RAY CHEST REASON FOR EXAM: Female, 71 years old. Pre op TECHNIQUE: Single AP portable view x2 of the chest. COMPARISON: February 27, 2021 chest x-ray FINDINGS: There is increased density in the left lung base. There is no demonstrated pleural abnormality. Normal size heart. Normal mediastinum and олег. Normal visualized pulmonary arteries. Normal visualized aortic arch and descending thoracic aorta. There are diffuse degenerative changes of the visualized thoracic spine. Normal visualized ribs, clavicles, and shoulders. There is no demonstrated abnormality of the visualized soft tissue structures of the upper abdomen. RAD/Chest 1 View (Portable) IMPRESSION: Increased density left lung base. Borderline cardiac enlargement. Electronically Signed: Suzanne Thao MD at 5:02 EDT ,
[2021-08-12] MEDS: hydrALAZINE 20 MG/ML Vial 10 MG IV (05:09)
[2021-08-12] MEDS: 0.45% Normal Saline 1,000 ML 75 ML IV (05:57)
[2021-08-12] MEDS: Levothyroxine 100 MCG Tablet PO (05:59)
[2021-08-12] MEDS: Acetaminophen 325 MG Tablet 650 MG PO (05:59)
[2021-08-12] MEDS: hydrALAZINE 50 MG Tablet 100 MG PO (05:59)
[2021-08-12] MEDS: Carvedilol 25 MG Tablet PO (05:59)
[2021-08-12 06:31] LABS: Bedside Glucose 127 mg/dL (74-106)
[2021-08-12 07:02] LABS: BUN 17 mg/dL (7-18); Glucose 144 mg/dL (74-106)
[2021-08-12 07:03] LABS: Anion Gap 5 (5-15); BUN/Creat Ratio 13.3 RATIO (10-20); Calcium,Total 9.6 mg/dL (8.5-10.1); Chloride 107 mmol/L (98-107); Creatinine, Serum 1.28 mg/dL (0.55-1.02); EST Glomerular Filtration Rate 43 mL/min (>60); Est Glom Filt Rate - Afr Amer 52 mL/min (>60); Estimated Creatinine Clearance 28.12 ml/min; Potassium 3.5 mmol/L (3.5-5.1); Sodium Level 140 mmol/L (136-145)
[2021-08-12 07:14] LABS: Bacteria 0 SEEN /hpf (None Seen); Color, Urine Red (Yellow); Glucose, Dipstick Normal (Normal); Ketone-Dipstick Negative (Negative); Mucous, Urine 0 SEEN /hpf (<or=2+); Nitrite-Dipstick Negative (Negative); Protein-Dipstick 500 mg/dl (Negative); Specific Gravity, Urine 1.025 (1.002-1.030); Urine Bilirubin Dipstick Negative (Negative); Urine Clarity Turbid (Clear); Urine Urobilinogen Normal (Normal)
[2021-08-12 07:15] LABS: Leukocyte Esterase-Dipstick 500 /ul (Negative); Occult Blood-Urine 250 /ul (Negative); Red Blood Cells-Urine > 100 SEEN /hpf (0-5); Squamous Epithelial Cells - UA 5-10 SEEN /hpf (5-10); White Blood Cells >100 SEEN /hpf (0-5)
[2021-08-12 07:23] LABS: Thyroid Stim Hormone (TSH) 0.86 uIU/mL (0.358-3.74)
[2021-08-12 07:32] LABS: Hematocrit 41.2 % (37-47); Hemoglobin 13.6 g/dL (12.0-15.0); Lymphocyte % 28.5 % (19-41); Mean Corpuscular Hgb 29.1 pg (27.0-32.0); Mean Platelet Vol. 9.2 fl (6.2-12.0); Monocyte% 8.5 % (0-10); Neutrophil % 59.3 % (47-70); Platelet Count 219 K/mm3 (150-450); RBC Distribution Width CV 13.9 % (11.6-14.6); RBC Distribution Width SD 44.8 fl (35.1-43.9); Red Blood Count 4.68 M/mm3 (4.2-5.4); White Blood Count 9.7 K/mm3 (4.4-11.0)
[2021-08-12 07:33] LABS: Absolute Lymphocyte Count 2.76 X10^3/uL (0.83-4.51); Absolute Neutrophil Count 5.8 X10^3/uL (2.0-7.7); Basophil% 2.9 % (0-1); Eosinophils% 0.5 % (0-5); NRBC Flagged by Analyzer 0 % (0-5)
--- NOTE | 2021-08-12 08:01 | PCM.CONS.U ---
HPI Consult Data Date of Consult: 08/12/21 HPI Narrative HPI Narrative: GAYLE CHO, is a 71 F who presents with an obstructing stones in the distal right ureter patient was well aware of the stones in her kidney and had see me in the office regarding management of the stones and had elected to just watch the situation but at this point she has an obstructing stone in the distal right ureter and she is admitted to the hospital for multiple medical problems and were going to place a stent today on the right side. [facility] Medical History Acute biliary pancreatitis Arthritis Atherosclerotic heart disease of [place] coronary artery without angina pectoris Atrial fibrillation CKD (chronic kidney disease) stage 3, GFR 30-59 ml/min Essential hypertension Facet arthropathy, lumbar GERD (gastroesophageal reflux disease) Heart murmur High cholesterol High triglycerides History of chest pain HLD (hyperlipidemia) Hypertension Hypothyroidism Irregular heart beat Kidney stones Myocardial infarct Osteoarthritis Parathyroid abnormality Presence of stent in coronary artery (~10/29/12) Home Medications aspirin 81 mg PO DAILY@0800 08/03/16 [History Last Taken 02/21/21] levothyroxine 100 mcg tablet 100 mcg PO DAILY 12/28/20 [History Last Taken 02/22/21] nitroglycerin 0.4 mg sublingual tablet 0.4 mg SUBLINGUAL Q5-15M PRN 12/28/20 [History Last Taken Unknown] cholecalciferol (vitamin D3) 25 mcg (1,000 unit) tablet 25 mcg PO DAILY 12/29/20 [History Last Taken 02/22/21] pravastatin 40 mg tablet 20 mg PO QHS tab 12/29/20 [History Last Taken 02/21/21] alprazolam 0.5 mg PO DAILY PRN 08/12/21 [History Last Taken Unknown] carvedilol 25 mg PO BID 08/12/21 [History Last Taken Unknown] dexamethasone 6 mg PO DAILY 08/12/21 [History Last Taken Unknown] losartan 25 mg PO BID 08/12/21 [History Last Taken Unknown] Allergy/AdvReac Type Severity Reaction Status Date / Time Penicillins Allergy Severe Rash Verified 08/12/21 04:44 Iodinated Contrast Media Allergy Anaphylaxis Verified 08/12/21 04:44 Antihistamines - Alkylamine AdvReac Unknown heart Verified 08/12/21 04:44 racing enalapril AdvReac Unknown myalgias Verified 08/12/21 04:44 levothyroxine sodium AdvReac Unknown fatigue Verified 08/12/21 04:44 [From Synthroid] metoprolol [From Lopressor] AdvReac Unknown myalgias Verified 08/12/21 04:44 ANESTETICS Allergy Swelling Uncoded 08/12/21 04:44 Family History Mother Heart disease Hypertension HLD (hyperlipidemia) Father Cancer Patient states spider cancer. Surgical History History of tonsillectomy Presence of coronary angioplasty implant and graft (~10/29/12) Social History household members: spouse Smoking Status: Current every day smoker tobacco type: cigarettes how long ago did patient quit smoking: Ongoing tobacco use since teenager, 1/2 ppd. alcohol intake: never substance use type: does not use caffeine: Yes Type: carbonated beverages, coffee and tea what type of physical activity do you participate in: none Lab / Micro Data Result Diagrams: 08/12/21 00:50 08/12/21 00:50 Labs: Laboratory Results - last 24 hr 08/12/21 00:50: Magnesium 2.0 08/12/21 00:50: TSH 0.86 08/12/21 00:50: Sodium 140, Potassium 3.5, Chloride 107, Carbon Dioxide 28.0, Anion Gap 5, BUN 17, Creatinine 1.28 H, Estim Creat Clear Calc 28.12, Est GFR (MDRD) Af Amer 52 L, Est GFR (MDRD) Non-Af 43 L, BUN/Creatinine Ratio 13.3, Glucose 144 H, Calcium 9.6 08/12/21 00:50: WBC 9.7, RBC 4.68, Hgb 13.6, Hct 41.2, MCV 88.0, MCH 29.1, MCHC 33.0, RDW Std Deviation 44.8 H, RDW Coeff of [place] 13.9, Plt Count 219, MPV 9.2, Immature Gran % (Auto) 0.300, Neut % (Auto) 59.3, Lymph % (Auto) 28.5, Real % (Auto) 8.5, Eos % (Auto) 0.5, Baso % (Auto) 2.9 H, Absolute Neuts (auto) 5.8, Absolute Lymphs (auto) 2.76, Nucleated RBC % 0 08/12/21 01:16: Urine Color Red, Urine Clarity Turbid, Urine pH 6.0, Ur Specific [place] 1.025, Urine Protein 500 H, Urine Glucose (UA) Normal, Urine Ketones Negative, Urine Occult Blood 250 H, Urine Nitrite Negative, Urine Bilirubin Negative, Urine Urobilinogen Normal, Ur Leukocyte Esterase 500 H, Urine RBC > 100 SEEN, Urine WBC >100 SEEN, Ur Squamous Epith Cells 5-10 SEEN, Urine Bacteria 0 SEEN, Urine Mucus 0 SEEN 08/12/21 05:55: POC Glucose 127 H Radiology Impression Abdomen/Pelvis CT 08/12/21 01:40 IMPRESSION: 1. Right obstructive uropathy secondary to a 7 mm diameter calculus at the right ureterovesical junction. 2. Presence of 13 non-obstructing calculi in upper pole calyces of the right kidney varying from 7 mm to 4 mm in diameter. Additional 2 mm diameter midpole calcification or non-obstructing calculus. 3. No evidence of left renal calcification calculi. 4. No evidence of renal cystic or solid mass lesions. 5. Normal bladder. 6. No appendicitis, diverticulitis, colitis, or talus obstruction. 7. No cholecystitis or pancreatitis. Electronically Signed: Jerry Bradshaw MD at 2:27 EDT , Chest X-Ray 08/12/21 04:18 IMPRESSION: Increased density left lung base. Borderline cardiac enlargement. Electronically Signed: Suzanne Thao MD at 5:02 EDT ,
--- NOTE | 2021-08-12 08:01 | PCM.DC ---
Discharge Instructions Diet Discharge Diet: No restrictions Activity Discharge Activity: Return to Normal Activity and May Not Drive (while taking narcotic pain medications.) Dressing / Incision Call your doctor if you observe: Fever of 101 or Higher Follow Up Care Please Follow Up With: Nirmal Zamora MD When: Call [phone] for an appointment Test Results: Test results from this visit will be discussed in further detail at your follow-up appointment, if applicable. Discharge Plan Admission Admit Date/Time: 08/12/21 03:46 Attending Provider: Carlito Santoyo Primary Care Provider: Gema Laura Consulting Providers: Nirmal Zamora Discharge Orders/Prescriptions Prescriptions: No Action cholecalciferol (vitamin D3) 25 mcg (1,000 unit) tablet 25 mcg PO DAILY RF: 0 levothyroxine 100 mcg tablet 100 mcg PO DAILY RF: 0 nitroglycerin 0.4 mg tablet, sublingual 0.4 mg sublingual Q5-15M PRN (Reason: Chest Pain) RF: 0 pravastatin 40 mg tablet 20 mg PO QHS RF: 0 aspirin 81 MG tablet 81 mg PO DAILY@0800 RF: 0 dexamethasone 6 mg tablet 6 mg PO DAILY RF: 0 alprazolam 0.5 mg tablet 0.5 mg PO DAILY PRN (Reason: Anxiety) RF: 0 losartan 50 mg tablet 25 mg PO BID RF: 0 carvedilol 25 mg tablet 25 mg PO BID RF: 0 Referrals / Follow Up: Gema Laura MD [Primary Care Provider] -
--- NOTE | 2021-08-12 11:42 | OP.PCM_ITS ---
Report of Operation Date of Procedure: 08/12/21 Pre-Operative Diagnosis: Obstructing right distal ureteral calculi Post-Operative Diagnosis: Same Surgery/Procedure Performed:: cystoscopy, retrograde and stent right. Description of Surgical Findings:: Patient was taken back to the operating room after induction of general anesthesia, the patient was placed in dorsolithotomy position. The urethra and genitals were prepped and draped in usual sterile fashion. Using a 21 [place] rigid cystourethroscope the entire length of the urethra was normal then went into the bladder. Identified the trigone the left and right ureteral orifice. I then cannulated the Right orifice and advanced a wire up into the kidney. I then backloaded a 5 [place] open ended catheter over the wire and injected contrast to delineate the anatomy. After the retrograde was performed I then used fluoroscopic images and guidance to advanced a wire up into the kidney and over the 0.038 glidewire I advanced a 6 [place]inese by 26 cm double pigtail stent. I then pulled the 0.038 Glidewire off and the stent coiled in the kidney bladder good position. The bladder was then drained. We confirmed the position of the stent by fluoroscopy. Patient anesthetic was r eversed and was taken back to the PACU in good condition. Surgeon: marian Type of Anesthesia: General Drains: stent right Admit VTE Documentation VTE Present on Admission: No VTE Mechan Device Prophylaxis: SCD's VTE Pharm Prophylaxis ordered?: No
[2021-08-12] MEDS: Cholecalciferol (VIT D3) 25 MCG TABLET (1,000 UNITS) PO (13:23)
[2021-08-12] MEDS: Losartan Potassium 50 MG Tablet PO (13:23)
[2021-08-12] MEDS: Aspirin E.C. 81 MG Tablet PO (13:23)
--- NOTE | 2021-08-12 13:57 | CASEMGMT ---
RN CM Face to Face with patient for initial transition planning/care coordination assessment. RN CM introduced self and role at [facility]. Patient lying in bed, alert and oriented. Patient willing to participate in assessment and is able to answer all questions appropriately. Care providers, pharmacy, and demographics verified. Patient wishes to discharge home, denies need for home health at this time. Patient states she has no further needs or concerns at this time. CM to follow for discharge planning needs that may arise. PCP: Valentín Specialists: none Preferred Pharmacy: [facility] Insurance: [employer] Prescription Benefit: yes Living Will/HPOA: none LNOK: daughter Living Arrangements: Patient lives alone in a mobile home with 4 steps and railing to enter the home. Patient states she is independent at home. Transportation: self, daughter DME/HHC: Patient has shower, grab bars, and walker at home. Patient states she has had HHC in the past. Patient has previously been to [facility] Disposition Plan: Patient to discharge home with family support and follow-up plans in place. Celeste CARO, RN, CM
--- NOTE | 2021-08-12 14:51 | PCM.DC ---
Discharge Instructions Diet Discharge Diet: No restrictions Activity Discharge Activity: Return to Normal Activity Weight Bearing Status: Full weight bearing Dressing / Incision Call your doctor if you observe: Fever of 101 or Higher Follow Up Care Please Follow Up With: Nirmal Zamora MD Test Results: Test results from this visit will be discussed in further detail at your follow-up appointment, if applicable. Discharge Plan Admission Admit Date/Time: 08/12/21 03:46 Primary Reason for Your Visit: right ureteral stone Attending Provider: Carlito Santoyo Primary Care Provider: Gema Laura Consulting Providers: Nirmal Zamora Discharge Orders/Prescriptions Prescriptions: New losartan 50 mg Tablet 50 mg PO BID Qty: 60 RF: 0 amlodipine [Norvasc] 5 mg tablet 5 mg PO DAILY Qty: 30 RF: 0 hydrochlorothiazide 12.5 mg capsule 12.5 mg PO DAILY Qty: 30 RF: 0 levofloxacin 500 mg tablet 500 mg PO DAILY Qty: 5 RF: 0 Continued cholecalciferol (vitamin D3) 25 mcg (1,000 unit) tablet 25 mcg PO DAILY RF: 0 levothyroxine 100 mcg tablet 100 mcg PO DAILY RF: 0 nitroglycerin 0.4 mg tablet, sublingual 0.4 mg sublingual Q5-15M PRN (Reason: Chest Pain) RF: 0 pravastatin 40 mg tablet 20 mg PO QHS RF: 0 aspirin 81 MG tablet 81 mg PO DAILY@0800 RF: 0 alprazolam 0.5 mg tablet 0.5 mg PO DAILY PRN (Reason: Anxiety) RF: 0 carvedilol 25 mg tablet 25 mg PO BID RF: 0 Discontinued losartan 50 mg tablet 25 mg PO BID RF: 0 Referrals / Follow Up: Gema Laura MD [Primary Care Provider] - Within 1 Week Nirmal Zamora MD [STAFF PHYSICIAN] - See Referral Note (office will call you to set up appointment) Disposition Disposition (needs filled in before D/C Order can be placed): Home, Self Care
--- NOTE | 2021-08-12 16:00 | PCM.DC.SUM ---
Providers Date of Admission: 08/12/21 Date of Discharge: 08/12/21 Primary Care Physician: Dr. Gema Laura MD Consultations 08/12/21 05:18 Consult: Urology Routine Consulting Provider: Nirmal Zamora Reason for Consult: right ureteric stone EMERGENT Consult: No MD Notified: Yes Date Notified: 08/12/21 Time Notified: 03:54 Method of Notification: Verbal Comments:: ED physician Dr. Nuno discussed with Reason For Visit: URETERIC CALCULUS WITH UTI Diagnosis Discharge Diagnosis (1) Acute UTI: Status: Acute Code(s): N39.0 - Urinary tract infection, site not specified (2) Accelerated hypertension: Status: Acute Code(s): I10 - Essential (primary) hypertension (3) Right distal ureteral calculus: Status: Acute Code(s): N20.1 - Calculus of ureter Plan: 1. Right obstructive uropathy secondary to 7 mm diameter calculus at the right ureterovesical junction #2 uncontrolled hypertension #3 chronic kidney disease stage IIIb #4 coronary artery disease #5 hyperlipidemia Hypertensive urgency was ruled out Medications at Discharge Home Medications aspirin 81 mg PO DAILY@0800 08/03/16 levothyroxine 100 mcg tablet 100 mcg PO DAILY 12/28/20 nitroglycerin 0.4 mg sublingual tablet 0.4 mg SUBLINGUAL Q5-15M PRN 12/28/20 cholecalciferol (vitamin D3) 25 mcg (1,000 unit) tablet 25 mcg PO DAILY 12/29/20 pravastatin 40 mg tablet 20 mg PO QHS tab 12/29/20 alprazolam 0.5 mg PO DAILY PRN 08/12/21 amlodipine [Norvasc] 5 mg PO DAILY #30 tab 08/12/21 carvedilol 25 mg PO BID 08/12/21 hydrochlorothiazide 12.5 mg PO DAILY #30 cap 08/12/21 levofloxacin 500 mg PO DAILY #5 tab 08/12/21 losartan 50 mg PO BID #60 tab 08/12/21 Hospital Course Operations None Procedures - (Cystoscopy with right retrograde pyelogram and right stent placement) Summary of Care Provided Minutes Spent on Discharge: 31 Hospital Course: This 71-year-old white female was seen in the emergency room at [facility] with complaints of right lower quadrant abdominal discomfort radiating into her back and nausea and vomiting. Work-up in the emergency room revealed the patient to have a right ureteral stone present, patient's blood pressure was elevated but she showed no signs of hypertensive emergency or urgency. Patient was given medication for blood pressure and and admitted to PCU, on 08/12/2021, she underwent a cystoscopy and right retrograde pyelogram with placement of a stent in the right ureter by urology. On 08/12/2021, patient was seen and examined: On examination she appeared in good health and spirits, she does not appear to be in any distress. Vital signs as documented. Skin warm and dry and without overt rashes. Neck without JVD, thyroid appears normal, trachea is midline, neck is supple. Lungs clear, normal air movement was noted. Heart exam notable for regular rhythm, normal sounds and absence of murmurs, rubs or gallops. Abdomen unremarkable and without evidence of organomegaly, masses, or abdominal aortic enlargement, bowel sounds are present in all 4 quadrants, no abdominal tenderness was noted. Extremities nonedematous, no cyanosis was noted, no clubbing was noted. Neuro: Cranial nerves II through XII are grossly intact, no focal motor deficits were noted, sensation to light touch and pinprick is intact, motor exam 5/5 throughout. Psych: Patient is alert and oriented x3, she does not appear anxious or depressed, she does not appear agitated. On 08/12/2021, patient was seen and examined felt to be in stable condition for discharge home Weight / BMI Weight Weight: 67.784 kg Body Mass Index (BMI) 29.2 ABG / Lab / Microbiology Data Result Diagrams: 08/12/21 00:50 08/12/21 00:50 Laboratory: Laboratory Results - last 24 hr 08/12/21 00:50: Magnesium 2.0 08/12/21 00:50: TSH 0.86 08/12/21 00:50: Sodium 140, Potassium 3.5, Chloride 107, Carbon Dioxide 28.0, Anion Gap 5, BUN 17, Creatinine 1.28 H, Estim Creat Clear Calc 28.12, Est GFR (MDRD) Af Amer 52 L, Est GFR (MDRD) Non-Af 43 L, BUN/Creatinine Ratio 13.3, Glucose 144 H, Calcium 9.6 08/12/21 00:50: WBC 9.7, RBC 4.68, Hgb 13.6, Hct 41.2, MCV 88.0, MCH 29.1, MCHC 33.0, RDW Std Deviation 44.8 H, RDW Coeff of [place] 13.9, Plt Count 219, MPV 9.2, Immature Gran % (Auto) 0.300, Neut % (Auto) 59.3, Lymph % (Auto) 28.5, Coffey % (Auto) 8.5, Eos % (Auto) 0.5, Baso % (Auto) 2.9 H, Absolute Neuts (auto) 5.8, Absolute Lymphs (auto) 2.76, Nucleated RBC % 0 08/12/21 01:16: Urine Color Red, Urine Clarity Turbid, Urine pH 6.0, Ur Specific [place] 1.025, Urine Protein 500 H, Urine Glucose (UA) Normal, Urine Ketones Negative, Urine Occult Blood 250 H, Urine Nitrite Negative, Urine Bilirubin Negative, Urine Urobilinogen Normal, Ur Leukocyte Esterase 500 H, Urine RBC > 100 SEEN, Urine WBC >100 SEEN, Ur Squamous Epith Cells 5-10 SEEN, Urine Bacteria 0 SEEN, Urine Mucus 0 SEEN 08/12/21 05:55: POC Glucose 127 H Microbiology: Microbiology 08/12/21 07:45 Interface Orders SARS-CoV-2 Antigen (Rapid) - Final Radiography Diagnostic Testing: Radiology Impression Abdomen/Pelvis CT 08/12/21 01:40 IMPRESSION: 1. Right obstructive uropathy secondary to a 7 mm diameter calculus at the right ureterovesical junction. 2. Presence of 13 non-obstructing calculi in upper pole calyces of the right kidney varying from 7 mm to 4 mm in diameter. Additional 2 mm diameter midpole calcification or non-obstructing calculus. 3. No evidence of left renal calcification calculi. 4. No evidence of renal cystic or solid mass lesions. 5. Normal bladder. 6. No appendicitis, diverticulitis, colitis, or talus obstruction. 7. No cholecystitis or pancreatitis. Electronically Signed: Jerry Bradshaw MD at 2:27 EDT , Chest X-Ray 08/12/21 04:18 IMPRESSION: Increased density left lung base. Borderline cardiac enlargement. Electronically Signed: Suzanne Thao MD at 5:02 EDT , D/C Instructions Discharge Diet: No restrictions Weight Bearing Status: Full weight bearing Call your doctor if you observe: Fever of 101 or Higher Please Follow Up With: Nirmal Zamora MD When: Call [phone] for an appointment Meaningful Use Info Meaningful Use Diagnoses (Choose all that apply): None applicable Discharge Plan Admission Admit Date/Time: 08/12/21 03:46 Primary Reason for Your Visit: right ureteral stone Attending Provider: Carlito Santoyo Primary Care Provider: Gema Laura Consulting Providers: Nirmal Zamora Discharge Orders/Prescriptions Prescriptions: New losartan 50 mg Tablet 50 mg PO BID Qty: 60 RF: 0 amlodipine [Norvasc] 5 mg tablet 5 mg PO DAILY Qty: 30 RF: 0 hydrochlorothiazide 12.5 mg capsule 12.5 mg PO DAILY Qty: 30 RF: 0 levofloxacin 500 mg tablet 500 mg PO DAILY Qty: 5 RF: 0 Continued cholecalciferol (vitamin D3) 25 mcg (1,000 unit) tablet 25 mcg PO DAILY RF: 0 levothyroxine 100 mcg tablet 100 mcg PO DAILY RF: 0 nitroglycerin 0.4 mg tablet, sublingual 0.4 mg sublingual Q5-15M PRN (Reason: Chest Pain) RF: 0 pravastatin 40 mg tablet 20 mg PO QHS RF: 0 aspirin 81 MG tablet 81 mg PO DAILY@0800 RF: 0 alprazolam 0.5 mg tablet 0.5 mg PO DAILY PRN (Reason: Anxiety) RF: 0 carvedilol 25 mg tablet 25 mg PO BID RF: 0 Discontinued losartan 50 mg tablet 25 mg PO BID RF: 0 Referrals / Follow Up: Gema Laura MD [Primary Care Provider] - Within 1 Week Nirmal Zamora MD [STAFF PHYSICIAN] - See Referral Note (office will call you to set up appointment) Disposition Disposition (needs filled in before D/C Order can be placed): Home, Self Care Charges/Coding Visit Charges OBSV E&M: 46407 Observ/hosp same date L3
--- NOTE | 2021-08-12 16:11 | CHAPLAIN ---
Type of Pastoral Visit _x__ Initial Visit ___ Follow-up Visit ___ On-call Visit ___ General Patient Visit ___ Spiritual Assessment ___ Family Conference ___ Bereavement ___ Rapid Response ___ Code Blue ___ Other (describe below) Pastoral Care Referral From _x__ Patient ___ Family ___ Nurse ___ Physician ___ Steam Setter ___ Batching Operator ___ Other (describe below) Sacrament/Intervention _x__ Active listening ___ Anointing ___ Restorationist _x__ Bereavement ___ Communion ___ [place] exploration ___ ___ Life review _x__ Prayer ___ Reconciliation ___ Sacrament of Sick _x__ Supportive presence ___ Wedding ___ Other (describe below) Pastoral Comments patient spoke of her passing in April so discussion about her ability to cope with grief; pt has some difficulty staying awake but welcomes prayer support for this time
== END 2021-08-12 17:21 | disposition home or self-care (01) | DRG 660 ==
LOC: ED 03:36 → PCU 04:29
PROVIDERS: Anesthesiology; Urology; Admitting Provider Internal Medicine; Emergency Provider Emergency Medicine; PCP Internal Medicine; Visit Provider Internal Medicine
PROC: 0T768DZ Dilation of Right Ureter with Intraluminal Device, Via Natural or Artificial Opening Endoscopic (ICD-10-PCS; CPT 52332; principal; 2021-08-12 09:20)
DX: N13.2 Hydronephrosis with renal and ureteral calculous obstruction (principal); B02.30 Zoster ocular disease, unspecified; I48.0 Paroxysmal atrial fibrillation; N18.32 Chronic kidney disease, stage 3b; E03.9 Hypothyroidism, unspecified; I25.10 Atherosclerotic heart disease of native coronary artery without angina pectoris; E78.00 Pure hypercholesterolemia, unspecified; K21.9 Gastro-esophageal reflux disease without esophagitis; M19.90 Unspecified osteoarthritis, unspecified site; I12.9 Hypertensive chronic kidney disease with stage 1 through stage 4 chronic kidney disease, or unspecified chronic kidney disease; I25.2 Old myocardial infarction; F17.210 Nicotine dependence, cigarettes, uncomplicated; F41.9 Anxiety disorder, unspecified; G47.33 Obstructive sleep apnea (adult) (pediatric); N39.0 Urinary tract infection, site not specified; Z87.442 Personal history of urinary calculi; Z79.82 Long term (current) use of aspirin; Z79.899 Other long term (current) drug therapy; Z95.1 Presence of aortocoronary bypass graft; Z87.440 Personal history of urinary (tract) infections; F32.A Depression, unspecified; E66.9 Obesity, unspecified; Z66 Do not resuscitate; Z68.29 Body mass index [BMI] 29.0-29.9, adult; Z71.6 Tobacco abuse counseling
CPT/HCPCS: 36415; 71045; 74176; 76000; 80048; 81001; 82962; 83735; 84443; 85025; 87040; 87077; 87086; 87088; 87186; 87426; 93005; 96361; 96365; 96375; 97162; 97166; 99285; 99406; J7030; J7120; A4216; C1769; C2617; J2405

== ENCOUNTER 2021-08-26 06:55 | Day surgery (SDC) | payer MEDICARE, OTHER, SELFPAY ==
[2021-08-26] VITALS (9 sets, daily range): BP systolic 124–166; BP diastolic 58–78; PULSE 71–76; RESP 16; TEMP 36.3–37.2; O2SAT 92–99; BMI 28.4
[2021-08-26] MEDS: Lactated Ringers 1,000 ML 15 ML IV (08:04)
[2021-08-26] MEDS: Cefazolin 2 GM in 0.9% Normal Saline 100 ML IV (08:41)
--- NOTE | 2021-08-26 08:48 | PCM.HP.STD ---
HPI - General HPI Narrative GAYLE CHO, is a 71 F who presents for laser stone in the right ureter. [facility] Medical History (Updated 08/20/21 @ 00:02 by Background Xavier) Accelerated hypertension Acute biliary pancreatitis Anxiety Arthritis Atherosclerotic heart disease of [place] coronary artery without angina pectoris Atrial fibrillation Cancer Cardiology follow-up encounter CKD (chronic kidney disease) stage 3, GFR 30-59 ml/min CPAP (continuous positive airway pressure) dependence Essential hypertension Facet arthropathy, lumbar GERD (gastroesophageal reflux disease) Heart murmur High cholesterol High triglycerides History of chest pain History of echocardiogram History of renal disease History of stress test HLD (hyperlipidemia) Hypertension Hypothyroidism Irregular heart beat Kidney stones Myocardial infarct Osteoarthritis Parathyroid abnormality Presence of stent in coronary artery (~10/29/12) Rash Restless legs Sleep apnea Smoker Thyroid disease Wears dentures Wears glasses Home Medications levothyroxine 100 mcg tablet 100 mcg PO DAILY 12/28/20 [History Last Taken 08/26/21] nitroglycerin 0.4 mg sublingual tablet 0.4 mg SUBLINGUAL Q5-15M PRN 12/28/20 [History Last Taken Unknown] cholecalciferol (vitamin D3) 25 mcg (1,000 unit) tablet 25 mcg PO DAILY 12/29/20 [History Last Taken 02/22/21] pravastatin 40 mg tablet 20 mg PO QHS tab 12/29/20 [History Last Taken 02/21/21] alprazolam 0.5 mg PO DAILY PRN 08/12/21 [History Last Taken 08/26/21] carvedilol 25 mg PO BID 08/12/21 [History Last Taken 08/26/21] losartan 50 mg PO BID #60 tab 08/12/21 [Rx Last Taken 08/26/21] Allergy/AdvReac Type Severity Reaction Status Date / Time Penicillins Allergy Severe Rash Verified 08/26/21 07:50 Iodinated Contrast Media Allergy Anaphylaxis Verified 08/26/21 07:50 Antihistamines - Alkylamine AdvReac Unknown heart Verified 08/26/21 07:50 racing enalapril AdvReac Unknown myalgias Verified 08/26/21 07:50 levothyroxine sodium AdvReac Unknown fatigue Verified 08/26/21 07:50 [From Synthroid] metoprolol [From Lopressor] AdvReac Unknown myalgias Verified 08/26/21 07:50 ANESTETICS Allergy Swelling Uncoded 08/12/21 04:44 Family History Mother Heart disease Hypertension HLD (hyperlipidemia) Father Cancer Patient states spider cancer. Surgical History History of D&C History of tonsillectomy History of tooth extraction Hx of cystoscopy Presence of coronary angioplasty implant and graft (~10/29/12) Social History household members: spouse Smoking Status: Current every day smoker tobacco type: cigarettes how long ago did patient quit smoking: Ongoing tobacco use since teenager, 1/2 ppd. alcohol intake: never substance use type: does not use caffeine: Yes Type: carbonated beverages, coffee and tea what type of physical activity do you participate in: none Vital Signs Vital Signs Vital Signs: 08/26/21 07:56 Temperature 99 F Temperature Source Temporal Pulse Rate 76 Respiratory Rate 16 Respiratory Pattern Normal Blood Pressure 144/78 H Blood Pressure Mean 100 Blood Pressure Source Monitor Blood Pressure Position Semi-Fowlers Blood Pressure Location Left Arm Pulse Ox 92 Oxygen Delivery Method Room Air Weight Weight: 66 kg Body Mass Index (BMI) 28.4
--- NOTE | 2021-08-26 08:48 | PCM.DC ---
Discharge Instructions Diet Discharge Diet: No restrictions Activity Discharge Activity: Return to Normal Activity and May Not Drive (while taking narcotic pain medications.) Dressing / Incision Call your doctor if you observe: Fever of 101 or Higher Follow Up Care Please Follow Up With: Nirmal Zamora MD When: Call [phone] for an appointment Test Results: Test results from this visit will be discussed in further detail at your follow-up appointment, if applicable. Discharge Plan Admission Primary Reason for Your Visit: laser stones and remove stent Attending Provider: Nirmal Zamora Primary Care Provider: Gema Laura Instructions Patient Instructions: Treating Kidney Stones ... Discharge Orders/Prescriptions Prescriptions: Continued cholecalciferol (vitamin D3) 25 mcg (1,000 unit) tablet 25 mcg PO DAILY RF: 0 levothyroxine 100 mcg tablet 100 mcg PO DAILY RF: 0 nitroglycerin 0.4 mg tablet, sublingual 0.4 mg sublingual Q5-15M PRN (Reason: Chest Pain) RF: 0 pravastatin 40 mg tablet 20 mg PO QHS RF: 0 alprazolam 0.5 mg tablet 0.5 mg PO DAILY PRN (Reason: Anxiety) RF: 0 carvedilol 25 mg tablet 25 mg PO BID RF: 0 losartan 50 mg Tablet 50 mg PO BID Qty: 60 RF: 0 Referrals / Follow Up: Gema Laura MD [Primary Care Provider] - Disposition Disposition (needs filled in before D/C Order can be placed): Home, Self Care
--- NOTE | 2021-08-26 09:13 | OP.PCM_ITS ---
Report of Operation Date of Procedure: 08/26/21 Pre-Operative Diagnosis: Right ureteral calculi Post-Operative Diagnosis: Same Surgery/Procedure Performed:: Right ureteroscopy laser lithotripsy of stones and stent Description of Surgical Findings:: Patient was taken back to the operating room after smooth induction of general anesthesia she was placed in dorsolithotomy position, the urethra vaginal area prepped and draped in usual fashion. I then went into the bladder with a 21 [place] rigid cystourethroscope and using a grasper I grabbed the stent pulled out the meatus and put a 0.038 Glidewire up the ureter. We then secured the wire to the drapes and then next the wire went in with a semirigid Olympus 7 [place] ureteroscope I encountered 2 large stones in the distal ureter and then used a 270 ?m laser fiber and laser the stones little tiny pieces I then used a tipless basket from [employer] and extracted the fragments, after removing all the fragments I remove the wire the ureter was capacious and I nice wide open so did not feel like a stent was necessary so I did not put another stent back in patient anesthetic was reversed she was taken back to PACU in good condition I will see her back in a few weeks for an ultrasound check in her kidney. No stent was placed. Surgeon: marian Type of Anesthesia: General Drains: none Admit VTE Documentation VTE Present on Admission: No VTE Mechan Device Prophylaxis: SCD's VTE Pharm Prophylaxis ordered?: No
== END 2021-08-26 23:59 | disposition home or self-care (01) ==
LOC: SDC 06:57 → AC 06:58
PROVIDERS: PCP Internal Medicine; Referring Provider Urology; Visit Provider Urology
PROC: 0TJ98ZZ Inspection of Ureter, Via Natural or Artificial Opening Endoscopic (ICD-10-PCS; CPT 52352; principal; 2021-08-26 08:50)
DX: N20.1 Calculus of ureter (principal); E11.22 Type 2 diabetes mellitus with diabetic chronic kidney disease; I48.91 Unspecified atrial fibrillation; N18.30 Chronic kidney disease, stage 3 unspecified; I12.9 Hypertensive chronic kidney disease with stage 1 through stage 4 chronic kidney disease, or unspecified chronic kidney disease; E78.00 Pure hypercholesterolemia, unspecified; E78.5 Hyperlipidemia, unspecified; F17.210 Nicotine dependence, cigarettes, uncomplicated; E07.9 Disorder of thyroid, unspecified; I25.10 Atherosclerotic heart disease of native coronary artery without angina pectoris; F41.9 Anxiety disorder, unspecified; Z87.19 Personal history of other diseases of the digestive system; K21.9 Gastro-esophageal reflux disease without esophagitis; E03.9 Hypothyroidism, unspecified; Z87.442 Personal history of urinary calculi; Z95.1 Presence of aortocoronary bypass graft; I25.2 Old myocardial infarction; G47.30 Sleep apnea, unspecified; G25.81 Restless legs syndrome; Z79.899 Other long term (current) drug therapy
CPT/HCPCS: 52353; 00873; 76000; 82360; 87426; C9803; J7120; C1769; J2405

== ENCOUNTER → 2021-10-20 | Outpatient (CLI) | payer MEDICARE, OTHER, SELFPAY ==
--- NOTE | 2021-10-20 14:25 | CT_ITS ---
STUDY: CT ABDOMEN AND PELVIS WITHOUT CONTRAST REASON FOR EXAM: Female, 71 years old. HEMATURIA. History of kidney stones. RADIATION DOSAGE (If Supplied By Facility): CTDIvol = ( 7.21 ) mGy, DLP = ( 371.72 ) mGycm TECHNIQUE: Transaxial images were obtained from the dome of the diaphragm to the symphysis pubis without oral contrast, and without intravenous contrast. Sagittal and coronal images were reconstructed. Individualized dose optimization techniques were used for this CT. COMPARISON: Comparison is made with prior examination dated 08/12/2021. FINDINGS: The visualized lung bases are unremarkable. Mild degree of pericardial thickening along the posterior base of the heart. Normal liver. Normal gallbladder and extrahepatic biliary system. Normal spleen. Normal pancreas. Normal bilateral adrenal glands. There are multiple right intrarenal calculi. These are more prominent in the upper and mid poles of the right kidney. The largest calculus measures 1.5 cm in the upper pole. There are now is evidence of a 7 mm calculus in the distal portion of the right renal pelvis. This was previously seen in the lower pole calyx of the right kidney. The previously seen calculus at the right ureterovesical junction is not seen at this time. Normal left kidney. Normal visualized stomach. Normal small intestine. There are multiple colonic diverticula consistent with diverticulosis. The appendix is visualized and appears normal. There is diffuse atherosclerotic calcification of the abdominal aorta and its major visceral branches, without a demonstrated aneurysm. Normal inferior vena cava. Normal retroperitoneum. Normal urinary bladder. Normal abdominal wall. There are mild degenerative changes of the visualized lumbar spine. CT/Abdomen/Pelvis without Cont IMPRESSION: Multiple right intrarenal calculi. 7 mm calculus is seen in the right renal pelvis. This stone was previously seen in the lower pole calyx. Electronically Signed: Yoni Islas MD at 14:55 EDT ,
== END | disposition home or self-care (01) ==
LOC: CT 14:23
PROVIDERS: PCP Internal Medicine; Referring Provider Urology; Visit Provider Urology
DX: R31.9 Hematuria, unspecified (principal)
CPT/HCPCS: 74176

== ENCOUNTER 2023-01-04 17:34 | Emergency (ER) | payer MEDICARE, OTHER, SELFPAY ==
[2023-01-04 17:36] VITALS: BP 269/101; PULSE 88; RESP 18; TEMP 36.6; O2SAT 100; BMI 30.4
[2023-01-04 17:50] VITALS: BP 241/86; PULSE 70; RESP 20; O2SAT 97
[2023-01-04 18:00] VITALS: BP 194/81; PULSE 68; RESP 18; O2SAT 96
--- NOTE | 2023-01-04 18:30 | CT_ITS ---
EXAM: CT ABDOMEN AND PELVIS WITHOUT INTRAVENOUS CONTRAST CLINICAL INDICATION: Pain TECHNIQUE: Helically acquired images were obtained of the abdomen and pelvis without intravenous contrast. This CT exam was performed using one or more of the following dose reduction techniques: automated exposure control, adjustment of the mA and/or kV according to patient size, and/or use of iterative reconstruction technique. COMPARISON: 10/20/2021 FINDINGS: LOWER THORAX: Unremarkable. Lung bases are clear. No cardiomegaly. No significant pericardial effusion. ABDOMEN: LIVER: Unremarkable. Homogeneous. GALLBLADDER AND BILE DUCTS: Unremarkable. No calcified gallstones. No gallbladder distention or wall edema. No intra- or extrahepatic biliary ductal dilation. PANCREAS: Unremarkable. No focal cystic mass. SPLEEN: Unremarkable. Normal size without focal cystic or solid mass. ADRENALS: Unremarkable. No nodules. KIDNEYS AND URETERS: There are large nonobstructing calyceal stones in the right kidney. There is a 9 mm stone in the right renal pelvis. There is borderline right-sided hydronephrosis present. Normal renal size and position. STOMACH AND BOWEL: Unremarkable. No stomach or bowel distention. No focal inflammatory change. PELVIS: APPENDIX: No evidence of acute appendicitis. BLADDER: Unremarkable. REPRODUCTIVE: Unremarkable as visualized. No mass. ABDOMEN and PELVIS: INTRAPERITONEAL SPACE: Unremarkable. No ascites or other fluid collection. No free air. BONES/JOINTS: Unremarkable. No suspicious lytic or blastic abnormality. SOFT TISSUES: Unremarkable. No discrete abdominal or pelvic wall hernia. VASCULATURE: Unremarkable. Abdominal aorta is non-dilated. LYMPH NODES: Unremarkable. No enlarged lymph nodes. CT/Abdomen/Pelvis without Cont IMPRESSION: Borderline right-sided hydronephrosis with a 9 mm stone in the right renal pelvis. Multiple nonobstructing calyceal stones are also present in the right kidney. There are no distal ureteral stones identified. Electronically Signed: Aries Schofield MD at 19:46 EDT ,
[2023-01-04 18:54] LABS: Absolute Neutrophil Count 7.8 X10^3/uL (2.0-7.7); Basophil# 0.06 X10^3/uL; Basophil% 0.5 % (0-1); Eosinophil# 0.25 X10^3/uL; Eosinophils% 2.2 % (0-5); Hematocrit 44.6 % (37-47); Hemoglobin 14.5 g/dL (12.0-15.0); Lymphocyte % 21.6 % (19-41); Mean Corp Hgb Conc 32.5 g/dL (32-36); Mean Corpuscular Volume 92.3 fL (81-99); Mean Platelet Vol. 9.1 fl (6.2-12.0); Monocyte# 0.91 X10^3/uL; Monocyte% 7.9 % (0-10); NRBC Flagged by Analyzer 0 % (0-5); Neutrophil # 7.83 X10^3/uL (2.7-7.7); Neutrophil % 67.5 % (47-70); Platelet Count 206 K/mm3 (150-450); RBC Distribution Width CV 14.3 % (11.6-14.6); RBC Distribution Width SD 48.5 fl (35.1-43.9); Red Blood Count 4.83 M/mm3 (4.2-5.4); White Blood Count 11.6 K/mm3 (4.4-11.0)
[2023-01-04] MEDS: 0.9% Normal Saline 1,000 ML 1000 ML IV (18:54)
[2023-01-04 19:06] LABS: Mucous, Urine 0 SEEN /hpf (<or=2+)
[2023-01-04 19:07] LABS: Anion Gap 3 (5-15); BUN 17 mg/dL (7-18); BUN/Creat Ratio 12.6 RATIO (10-20); Calcium,Total 9.2 mg/dL (8.5-10.1); Chloride 108 mmol/L (98-107); Creatinine, Serum 1.35 mg/dL (0.55-1.02); EST Glomerular Filtration Rate 41 mL/min (>60); Est Glom Filt Rate - Afr Amer 49 mL/min (>60); Estimated Creatinine Clearance 26.26 ml/min; Glucose 103 mg/dL (74-106); Potassium 3.5 mmol/L (3.5-5.1); Sodium Level 140 mmol/L (136-145)
[2023-01-04 19:18] LABS: Color, Urine Red (Yellow); Glucose, Dipstick Normal (Normal); Ketone-Dipstick 5 mg/dl (Negative); Leukocyte Esterase-Dipstick 500 /ul (Negative); Nitrite-Dipstick Positive (Negative); Occult Blood-Urine 250 /ul (Negative); Protein-Dipstick 500 mg/dl (Negative); Urine Bilirubin Dipstick Negative (Negative); Urine Clarity Cloudy (Clear); Urine Urobilinogen Normal (Normal); Urine pH 6.5 (5.0 - 8.0)
--- NOTE | 2023-01-04 19:19 | ED.RN ---
THIS RN ATTEMPTS TO TALK TO PT ABOUT POSSIBLY TAKING AN ANTIHYPERTENSIVE FOR HER BP OF 200S SYSTOLIC. PT DECLINED ANY MEDS AND STATES SHE TAKES MEDS AT HOME.
[2023-01-04 19:20] LABS: Red Blood Cells-Urine > 100 SEEN /hpf (0-5); White Blood Cells 50-100 SEEN /hpf (0-5)
[2023-01-04 19:21] LABS: Bacteria 2+ /hpf (None Seen); Squamous Epithelial Cells - UA 0-5 SEEN /hpf (5-10)
--- NOTE | 2023-01-04 19:35 | EDS_ITS ---
HPI History of Present Illness Chief Complaint: Complaint Informant: patient Narrative Narrative: 72-year-old female presenting to the emergency room with a chief complaint of hematuria and abdominal pain. Patient states this has been a recurrent issue for her. She states that this typically happens when she has a kidney stone, scar tissue, or infection. She is a long-term smoker. She has a history of uncontrolled hypertension stating that the only thing that will help her blood pressure is Xanax and she does not want any medications adjusted for her blood pressure. She currently takes carvedilol alprazolam and losartan. She is also on Synthroid and pravastatin. Patient states that the pain in the abdomen began yesterday worse today. She notes the blood in the urine is worse today and is now almost pure red. She has seen Dr. Juarez in the past and states that she saw another kidney doctor who wanted to do surgery but she opted not to. [facility] Medical History Accelerated hypertension Acute biliary pancreatitis Anxiety Arthritis Atherosclerotic heart disease of [place] coronary artery without angina pectoris Atrial fibrillation Cancer Cardiology follow-up encounter CKD (chronic kidney disease) stage 3, GFR 30-59 ml/min CPAP (continuous positive airway pressure) dependence Essential hypertension Facet arthropathy, lumbar Heart murmur High cholesterol High triglycerides History of chest pain History of echocardiogram History of renal disease History of stress test HLD (hyperlipidemia) Hypertension Hypothyroidism Irregular heart beat Kidney stones Myocardial infarct Osteoarthritis Parathyroid abnormality Presence of stent in coronary artery (~10/29/12) Rash Restless legs Smoker Thyroid disease Wears dentures Wears glasses Home Medications levothyroxine 100 mcg tablet 100 mcg PO DAILY THYROID 12/28/20 [History Last Taken 08/26/21] nitroglycerin 0.4 mg sublingual tablet 0.4 mg sublingual Q5-15M PRN Chest Pain 12/28/20 [History Last Taken Unknown] cholecalciferol (vitamin D3) 25 mcg (1,000 unit) tablet 25 mcg PO DAILY SUPPLEMENT 12/29/20 [History Last Taken 02/22/21] pravastatin 40 mg tablet 20 mg PO QHS CHOLESTEROL 12/29/20 [History Last Taken 02/21/21] alprazolam 0.5 mg tablet 0.5 mg PO DAILY PRN Anxiety 08/12/21 [History Last Justyn en 08/26/21] carvedilol 25 mg tablet 25 mg PO BID bp 08/12/21 [History Last Taken 08/26/21] losartan 50 mg tablet 50 mg PO BID #60 tabs 08/12/21 [Rx Last Taken 08/26/21] sulfamethoxazole 800 mg-trimethoprim 160 mg tablet (Bactrim DS) 1 tab PO BID #14 tabs 01/04/23 [Rx Last Taken Unknown] Allergy/AdvReac Type Severity Reaction Status Date / Time Penicillins Allergy Severe Rash Verified 01/04/23 17:36 Anesthetics - Amide Type - Allergy Swelling Verified 01/04/23 17:36 Select A Anesthetics - Nubia Type- Allergy Swelling Verified 01/04/23 17:36 Parabens Iodinated Contrast Media Allergy Anaphylaxis Verified 01/04/23 17:36 Antihistamines - Alkylamine AdvReac Unknown heart Verified 01/04/23 17:36 racing enalapril AdvReac Unknown myalgias Verified 01/04/23 17:36 levothyroxine sodium AdvReac Unknown fatigue Verified 01/04/23 17:36 [From Synthroid] metoprolol [From Lopressor] AdvReac Unknown myalgias Verified 01/04/23 17:36 Family History Mother Heart disease Hypertension HLD (hyperlipidemia) Father Cancer Patient states spider cancer. Surgical History History of D&C History of tonsillectomy History of tooth extraction Hx of cystoscopy Presence of coronary angioplasty implant and graft (~10/29/12) Social History household members: spouse Smoking Status: Heavy Smoker (>10/day) how long ago did patient quit smoking: Ongoing tobacco use since teenager, 1/2 ppd. alcohol intake: never substance use type: does not use caffeine: Yes Type: carbonated beverages, coffee and tea what type of physical activity do you participate in: none ROS ROS ED Constitutional Constitutional ED: Denies chills or weight loss Eyes Eyes: Denies change in vision or diplopia ENT ENT ED: Denies ear pain, rhinorrhea or sore throat Cardiovascular Cardiovascular: Denies chest pain, orthopnea, palpitations or racing heartbeat Respiratory/Chest Respiratory/Chest: Denies cough, dyspnea or orthopnea Gastrointestinal Gastrointestinal: Reports abdominal pain; Denies diarrhea, nausea or vomiting Genitourinary Genitourinary ED: Reports hematuria; Denies dysuria or urinary frequency Musculoskeletal Musculoskeletal: Denies arthralgias or myalgias Integumentary Denies abscess or rash Neurologic Neurologic: Denies headache(s) or weakness Psychiatric Psychiatric: Denies anxiety, depression, suicidal ideation or suicidal thoughts Endocrine Endocrinology: Denies polydipsia, polyphagia or polyuria Allergic/Immunologic Allergic/Immunologic ED: Denies mouth swelling, tongue swelling or urticaria EXAM Physical Exam Const Vital Signs: 01/04/23 17:36 01/04/23 17:48 01/04/23 17:50 Temperature 97.9 F Temperature Source Temporal Pulse Rate 88 70 Respiratory Rate 18 20 H Respiratory Effort Normal Respiratory Pattern Normal Blood Pressure 269/101 H 241/86 H Blood Pressure Mean 157 137 Pulse Ox 100 97 Oxygen Delivery Method Room Air Room Air 01/04/23 18:00 01/04/23 20:29 Temperature Temperature Source Pulse Rate 68 69 Respiratory Rate 18 18 Respiratory Effort Respiratory Pattern Blood Pressure 194/81 H 131/79 H Blood Pressure Mean 118 96 Pulse Ox 96 99 Oxygen Delivery Method Room Air Room Air Positive well nourished, well developed and obese General Appearance ED: well developed Nutritional Appearance: obese HEENT Reports normocephalic, head/scalp atraumatic and moist mucous membranes Eyes PERRL and EOMs intact bilaterally Neck no lymphadenopathy, supple and no JVD Resp normal respiratory effort and clear to auscultation bilaterally Cardio regular rate, regular rhythm and no murmurs GI normal to inspection, nondistended, normoactive bowel sounds and non-tender Palpation: soft Back/Spine no CVA tenderness and normal ROM Extremity normal to inspection General Extremety ED: Negative for edema General Extremity: Negative for edema Neuro oriented x3 and CN's II-XII intact bilaterally Sensorium / Orientation: alert Motor Exam: strength 5/5 throughout Psych mental status grossly normal Mood & Affect: Negative for depressed or tearful Skin no rashes or lesions noted and no wounds MDM MDM MDM Narrative Medical decision making narrative: The patient's blood pressure is significantly elevated. She does not want anything other than Xanax for this. She did drive herself to the emergency department so I do not wish to give her Xanax for her hypertension. As she is otherwise asymptomatic from a hypertensive standpoint and she states that this is not uncommon for her to be at this level I think it is reasonable to not press the issue. White count slightly elevated 11.6. Creatinine 1.35. Urinalysis shows positive nitrates and leukocyte esterase, 50-100 white blood cells greater than 100 red cells and 2+ bacteria. This will be sent for culture. CT of the abdomen pelvis was obtained which is demonstrating large nonobstructing calyceal stones in the right kidney. A 9 mm stone in the right renal pelvis. There is borderline right-sided hydronephrosis. Patient is not experiencing any clots. She is able to urinate. I encouraged her to drink plenty of fluids. She understands that she may need to return for Mendez catheter if she is obstructed. I will place her on Bactrim. I encouraged her to follow-up with her hypertension. Patient notes understanding of the plan. At this point I do not feel the patient is septic. I do not think she needs emergent hospitalization and neither does she. Patient will follow-up with urology and primary care. Lab Data Attestation: I reviewed the patient's lab results. Labs: Laboratory Results - last 24 hr 01/04/23 01/04/23 18:40 18:50 WBC 11.6 H RBC 4.83 Hgb 14.5 Hct 44.6 MCV 92.3 MCH 30.0 MCHC 32.5 RDW Std Deviation 48.5 H RDW Coeff of Suoleymane 14.3 Plt Count 206 MPV 9.1 Immature Gran % (Auto) 0.300 Neut % (Auto) 67.5 Lymph % (Auto) 21.6 [place] % (Auto) 7.9 Eos % (Auto) 2.2 Baso % (Auto) 0.5 Absolute Neuts (auto) 7.8 H Absolute Lymphs (auto) 2.50 Nucleated RBC % 0 Sodium 140 Potassium 3.5 Chloride 108 H Carbon Dioxide 29.0 Anion Gap 3 L BUN 17 Creatinine 1.35 H Estim Creat Clear Calc 26.26 Est GFR (MDRD) Af Amer 49 L Est GFR (MDRD) Non-Af 41 L BUN/Creatinine Ratio 12.6 Glucose 103 Calcium 9.2 Urine Color Red Urine Clarity Cloudy Urine pH 6.5 Ur Specific [place] 1.010 Urine Protein 500 H Urine Glucose (UA) Normal Urine Ketones 5 H Urine Occult Blood 250 H Urine Nitrite Positive H Urine Bilirubin Negative Urine Urobilinogen Normal Ur Leukocyte Esterase 500 H Urine RBC > 100 SEEN Urine WBC 50-100 SEEN Ur Squamous Epith Cells 0-5 SEEN Urine Bacteria 2+ Urine Mucus 0 SEEN Discharge Plan Triage Chief Complaint: Complaint ED Provider: Denzel Cody Dx/Rx/DC Orders Clinical Impression: Hematuria, Acute UTI, Abdominal pain, Kidney stone on right side, Asymptomatic hypertensive urgency Instructions: What Is High Blood Pressure, ED Hematuria Prescriptions: New sulfamethoxazole-trimethoprim [Bactrim DS] 800-160 mg tablet 1 tab PO BID Qty: 14 0RF No Action cholecalciferol (vitamin D3) 25 mcg (1,000 unit) tablet 25 mcg PO DAILY levothyroxine 100 mcg tablet 100 mcg PO DAILY nitroglycerin 0.4 mg tablet, sublingual 0.4 mg sublingual Q5-15M PRN (Reason: Chest Pain) Rx Instructions: do not exceed 3 doses per episode pravastatin 40 mg tablet 20 mg PO QHS alprazolam 0.5 mg tablet 0.5 mg PO DAILY PRN (Reason: Anxiety) carvedilol 25 mg tablet 25 mg PO BID losartan 50 mg Tablet 50 mg PO BID Qty: 60 0RF Primary Care Provider: Gema Laura Referrals: Gema Laura MD [Primary Care Provider] - As soon as possible Nirmal Zamora MD [Med Staff - Active Staff] - As soon as possible Disposition Disposition: Home, Self Care
[2023-01-04 20:29] VITALS: BP 131/79; PULSE 69; RESP 18; O2SAT 99
[2023-01-04] MEDS: Smz/Tmp Ds Tablet 1 TABLET PO (21:36)
[2023-01-04 21:41] VITALS: BP 254/90; PULSE 87; RESP 22; O2SAT 99
--- NOTE | 2023-01-04 21:46 | ED.RN ---
Pt education given on HTN and risks. Pt stated antihypertensive meds do not work for her. RN instructed pt to followup with her PCP, pt stated she will not be doing that.
== END 2023-01-04 21:47 | disposition home or self-care (01) ==
PROVIDERS: Emergency Provider Emergency Medicine; PCP Internal Medicine; Visit Provider Emergency Medicine
DX: N20.0 Calculus of kidney (principal); N18.30 Chronic kidney disease, stage 3 unspecified; I16.0 Hypertensive urgency; Z87.891 Personal history of nicotine dependence; R10.9 Unspecified abdominal pain; I12.9 Hypertensive chronic kidney disease with stage 1 through stage 4 chronic kidney disease, or unspecified chronic kidney disease; E78.00 Pure hypercholesterolemia, unspecified; I25.10 Atherosclerotic heart disease of native coronary artery without angina pectoris; R31.9 Hematuria, unspecified; Z99.89 Dependence on other enabling machines and devices; I25.2 Old myocardial infarction; E03.9 Hypothyroidism, unspecified; Z79.899 Other long term (current) drug therapy; F41.9 Anxiety disorder, unspecified; Z95.5 Presence of coronary angioplasty implant and graft; N39.0 Urinary tract infection, site not specified
CPT/HCPCS: 74176; 80048; 81001; 85025; 87086; 87088; 87186; 96360; 96361; 99284; J7030

== ENCOUNTER 2024-02-03 12:29 | Emergency (ER) | payer MEDICARE, OTHER, SELFPAY ==
[2024-02-03 12:30] VITALS: BP 237/73; BP 237/83; PULSE 58; RESP 16; TEMP 36.9; O2SAT 95
--- NOTE | 2024-02-03 13:56 | CT_ITS ---
STUDY: CT Abdomen And Pelvis W/O Contrast Injection 02/03/2024 3:53 PM REASON FOR EXAM: Female, 73 years old. Abdominal pain Pain Individualized dose optimization techniques were used for this CT. COMPARISON: 01-04-23 TECHNIQUE: CT Abdomen And Pelvis W/O Contrast Injection FINDINGS: There are atherosclerotic calcifications of visualized coronary arteries. The visualized portions of the heart are within normal limits. There is decreased attenuation of the liver consistent with steatosis. Normal gallbladder and extrahepatic biliary system. Normal spleen. Normal pancreas. Normal bilateral adrenal glands. Non obstructive multiple up to 19 mm right renal calyceal stones. Non obstructive 2 mm left renal parenchymal stones. Stable 7 mm hyperdense lesion in the mid lateral right kidney. This is 33 Hounsfield units. This is indeterminate. Normal visualized stomach. Normal small intestine. There are multiple colonic diverticula consistent with diverticulosis. The appendix is visualized and appears normal. There are calcifications of the abdominal aorta. This is consistent for atherosclerotic disease. There is NO abdominal aortic aneurysm. Vascular workup can be obtained based on clinical correlation. Normal inferior vena cava. Subcentimeter mesenteric lymph nodes. Normal urinary bladder. Normal visualized uterus. There is an umbilical hernia containing fat. There are diffuse degenerative changes of the visualized lumbar spine. There is bilateral neural foraminal stenosis at L4-5 and L5-S1. CT/Abdomen/Pelvis without Cont IMPRESSION: (NOT LISTED IN ORDER OF SIGNIFICANCE) Non obstructive multiple up to 19 mm right renal calyceal stones. Stable hyperdense lesion of the right kidney. Initial evaluation with ultrasound can be obtained. Non obstructive 2 mm left renal parenchymal stones. Other findings as above. Electronically Signed: Perry Boyd MD at 15:57 EDT ,
--- NOTE | 2024-02-03 13:57 | EDS_ITS ---
HPI HPI - GI History of Present Illness Chief Complaint: Abd Pain Detail of Chief Complaint: Abdominal pain Informant: patient Narrative Narrative: Patient presents with worsening abdominal pain over the last 4 days. She has history of kidney stones. Currently rates her pain an 8 out of 10. She has had nausea and vomiting today 3-4 times. She had diarrhea a week ago. She describes some sweats. She denies fever. She denies dysuria although she was treated for UTI 2 or 3 weeks ago. No prior abdominal surgeries. PFSH PFSH Medical History Accelerated hypertension Acute biliary pancreatitis Anxiety Arthritis Atherosclerotic heart disease of [place] coronary artery without angina pectoris Atrial fibrillation Cancer Cardiology follow-up encounter CKD (chronic kidney disease) stage 3, GFR 30-59 ml/min CPAP (continuous positive airway pressure) dependence Essential hypertension Facet arthropathy, lumbar Heart murmur High cholesterol High triglycerides History of chest pain History of echocardiogram History of renal disease History of stress test HLD (hyperlipidemia) Hypertension Hypothyroidism Irregular heart beat Kidney stones Myocardial infarct Osteoarthritis Parathyroid abnormality Presence of stent in coronary artery (~10/29/12) Rash Restless legs Smoker Thyroid disease Wears dentures Wears glasses Home Medications ?Medication ?Instructions ?Recorded ?Last Taken ?Type levothyroxine 100 mcg tablet 100 mcg PO DAILY THYROID 12/28/20 08/26/21 History carvedilol 25 mg tablet 25 mg PO BID bp 08/12/21 08/26/21 History losartan 50 mg tablet 50 mg PO BID #60 tabs 08/12/21 08/26/21 Rx cephalexin 500 mg capsule 500 mg PO Q6 #28 CAPSULES 02/03/24 Unknown Rx ondansetron 4 mg disintegrating 4 mg PO Q8H PRN PRN Nausea #10 tabs 02/03/24 Unknown Rx tablet Allergy/AdvReac Type Severity Reaction Status Date / Time Penicillins Allergy Severe Rash Verified 02/03/24 12:30 Anesthetics - Amide Type - Allergy Swelling Verified 02/03/24 12:30 Select A Anesthetics - Nubia Type- Allergy Swelling Verified 02/03/24 12:30 Parabens Iodinated Contrast Media Allergy Anaphylaxis Verified 02/03/24 12:30 Antihistamines - Alkylamine AdvReac Unknown heart Verified 02/03/24 12:30 racing enalapril AdvReac Unknown myalgias Verified 02/03/24 12:30 levothyroxine sodium (From AdvReac Unknown fatigue Verified 02/03/24 12:30 Synthroid) metoprolol (From Lopressor) AdvReac Unknown myalgias Verified 02/03/24 12:30 Family History Mother Heart disease Hypertension HLD (hyperlipidemia) Father Cancer Patient states spider cancer. Surgical History History of D&C History of tonsillectomy History of tooth extraction Hx of cystoscopy Presence of coronary angioplasty implant and graft (~10/29/12) Social History household members: spouse Smoking Status: Heavy Smoker (>10/day) how long ago did patient quit smoking: Ongoing tobacco use since teenager, 1/2 ppd. alcohol intake: never substance use type: does not use caffeine: Yes Type: carbonated beverages, coffee and tea what type of physical activity do you participate in: none ROS ROS ED Review of Systems ROS Unobtainable: other Constitutional Constitutional ED: Reports lethargy; Denies chills, fever(s), sweats or weight loss Eyes Eyes: Denies blurry vision, change in vision or diplopia ENT ENT ED: Denies rhinorrhea or sore throat Cardiovascular Cardiovascular: Denies chest pain, orthopnea or racing heartbeat Respiratory/Chest Respiratory/Chest: Denies cough, dyspnea, dyspnea on exertion, orthopnea or sputum Gastrointestinal Gastrointestinal: Reports abdominal pain, nausea and vomiting; Denies diarrhea Genitourinary Genitourinary ED: Denies dysuria, hematuria or urinary frequency Musculoskeletal Musculoskeletal: Denies arthralgias, back pain, myalgias or neck pain Integumentary Denies abscess, Abrasions or rash Neurologic Neurologic: Denies headache(s) or weakness Psychiatric Psychiatric: Denies anxiety, depression or suicidal thoughts Endocrine Endocrinology: Denies polydipsia, polyphagia or polyuria Hematologic/Lymphatic Hematologic/Lymphatic: Denies easy bleeding, easy bruising or lymphadenopathy Allergic/Immunologic Allergic/Immunologic ED: Denies mouth swelling, tongue swelling or urticaria EXAM Physical Exam Const Vital Signs: 02/03/24 12:30 02/03/24 12:30 02/03/24 15:00 Temperature 98.4 F Temperature Source Temporal Pulse Rate 58 L 53 L Respiratory Rate 16 14 Blood Pressure 237/73 H 237/83 H 231/87 H Blood Pressure Mean 127 134 135 Pulse Ox 95 97 Oxygen Delivery Method Room Air Room Air Positive well nourished and well developed General Appearance ED: well developed and NAD HEENT Reports TM's clear and moist mucous membranes normocephalic and atraumatic; Negative for trauma or tenderness Tympanic Membrane ED: Yes TM's clear Eyes PERRL and EOMs intact bilaterally General Eye ED: Negative for pale conjunctiva or scleral icterus Neck no lymphadenopathy, supple and no JVD General: Negative for tenderness Chest Wall inspection of chest normal and palpation of chest normal Chest: Negative for tenderness Resp normal respiratory effort and clear to auscultation bilaterally Effort and Inspection: Negative for respiratory distress or pain with movement Auscultation: Negative for rhonchi, wheezes or diminished lung sounds Cardio regular rate, regular rhythm, S1 normal heart sound, S2 normal heart sound and no murmurs Peripheral Pulses: pulses 2+ throughout GI normal to inspection, nondistended, normoactive bowel sounds, soft to palpation, non-distended and no masses GI Narrative: Tenderness palpation over right lower quadrant with some guarding. There is no rebound, rigidity, or pineal signs. Mild tenderness over the right upper quadrant. Negative Downs sign. Mild CVA tenderness on the right. Back/Spine no thoracic nor lumbar tenderness Back/Spine Narrative: Mild CVA tenderness on the right. Extremity normal to inspection General Extremety ED: Negative for edema General Extremity: Negative for edema Neuro oriented x3, CN's II-XII intact bilaterally, no sensory deficits noted and gait normal Sensorium / Orientation: awake, alert, oriented to person, oriented to place and oriented to time Motor Exam: strength 5/5 throughout and strength abnormal Psych mental status grossly normal Skin no rashes or lesions noted and no wounds MDM MDM MDM Narrative Medical decision making narrative: Patient presents with significant right-sided flank pain with history of kidney stones. Patient treated for UTI 2 or 3 weeks ago. She has had 3 or 4 episodes of vomiting today. She has had some sweats. In the differential would be kidney stone versus UTI or pyelonephritis or appendicitis. Patient did not want any narcotic pain medicine. She was given a dose of Toradol. She was given normal saline. CBC with differential white count of 12.3 with hemoglobin 15 and platelet count of 238. Chemistries unremarkable. Lactate normal at 1.2. LFTs unremarkable. Urinalysis positive for infection. CT scan of the abdomen pelvis without contrast showed no evidence of a urolithiasis or hydronephrosis. Normal appendix. No other significant findings. Patient was given Rocephin 1 g IV. I offered her admission for antibiotics and pain medication. Patient is adamant that she cannot tolerate pain pain medications as far as narcotics. Patient was hypertensive and I ordered hydralazine for her as her systolic in the 220s which she states sometimes he gets that high. She refused the hydralazine. Patient states only thing that helps her is Xanax when this happens. I did give her 0.5 mg of Xanax and her blood pressure improved into the 130 systolic. Patient does not want to be admitted. Will give her a gram of Rocephin IV and sent home with Zofran and Keflex. Will send off a urine culture. Patient advised to return if worsening pain, fever, persistent vomiting, or condition should worsen anyway. Lab Data Attestation: I reviewed the patient's lab results. Labs: Laboratory Results - last 24 hr 02/03/24 02/03/24 02/03/24 13:40 14:08 16:30 WBC 12.3 H RBC 5.22 Hgb 15.5 H Hct 47.2 H MCV 90.4 MCH 29.7 MCHC 32.8 RDW Std Deviation 45.7 H RDW Coeff of Souleymane 13.8 Plt Count 238 MPV 9.1 Immature Gran % (Auto) 0.500 Neut % (Auto) 74.5 H Lymph % (Auto) 19.0 [place] % (Auto) 4.5 Eos % (Auto) 0.9 Baso % (Auto) 0.6 Absolute Neuts (auto) 9.2 H Absolute Lymphs (auto) 2.33 Nucleated RBC % 0 Sodium 137 Potassium 4.0 Chloride 104 Carbon Dioxide 25.0 Anion Gap 8 BUN 14 Creatinine 1.46 H Est GFR (MDRD) Af Amer 45 L Est GFR (MDRD) Non-Af 37 L BUN/Creatinine Ratio 9.6 L Glucose 152 H Lactic Acid 1.2 Calcium 10.4 H Total Bilirubin 0.90 AST 17 ALT 20 Alkaline Phosphatase 120 H Total Protein 8.2 Albumin 3.9 Globulin 4.3 H Albumin/Globulin Ratio 0.9 Urine Color Yellow Urine Clarity Sl. Cloudy Urine pH 6.0 Ur Specific [place] 1.010 Urine Protein 100 H Urine Glucose (UA) Normal Urine Ketones Negative Urine Occult Blood 25 H Urine Nitrite Positive H Urine Bilirubin Negative Urine Urobilinogen Normal Ur Leukocyte Esterase 500 H Radiography Diagnostic Testing: Clinical Impression(s) from Imaging Studies Abdomen/Pelvis CT 02/03/24 13:56 IMPRESSION: (NOT LISTED IN ORDER OF SIGNIFICANCE) Non obstructive multiple up to 19 mm right renal calyceal stones. Stable hyperdense lesion of the right kidney. Initial evaluation with ultrasound can be obtained. Non obstructive 2 mm left renal parenchymal stones. Other findings as above. Electronically Signed: Perry Boyd MD at 15:57 EDT Reading Location ID and State: [facility] / [place] , Service support , Discharge Plan Triage Chief Complaint: Abd Pain ED Provider: Tracee Morrison Dx/Rx/DC Orders Clinical Impression: Acute UTI, Hypertension, Leukocytosis, Abdominal pain, Back pain Instructions: ED High Blood Pressure Hypertension, ED Cystitis Female Adult Prescriptions: New cephalexin 500 mg capsule 500 mg PO Q6 Qty: 28 0RF ondansetron 4 mg tablet,disintegrating 4 mg PO Q8H PRN PRN (Reason: Nausea) Qty: 10 0RF No Action levothyroxine 100 mcg tablet 100 mcg PO DAILY carvedilol 25 mg tablet 25 mg PO BID losartan 50 mg Tablet 50 mg PO BID Qty: 60 0RF Primary Care Provider: Gema Laura Referrals: Gema Laura MD [Primary Care Provider] - 3-5 Days Print Language: Indian Disposition Disposition: Home, Self Care
[2024-02-03 14:06] LABS: Absolute Lymphocyte Count 2.33 X10^3/uL (0.83-4.51); Absolute Neutrophil Count 9.2 X10^3/uL (2.0-7.7); Basophil# 0.07 X10^3/uL; Basophil% 0.6 % (0-1); Eosinophil# 0.11 X10^3/uL; Eosinophils% 0.9 % (0-5); Hematocrit 47.2 % (37-47); Hemoglobin 15.5 g/dL (12.0-15.0); Lymphocyte # 2.33 X10^3/ul (0.83-4.51); Mean Corp Hgb Conc 32.8 g/dL (32-36); Mean Corpuscular Hgb 29.7 pg (27.0-32.0); Mean Corpuscular Volume 90.4 fL (81-99); Mean Platelet Vol. 9.1 fl (6.2-12.0); Monocyte# 0.55 X10^3/uL; Monocyte% 4.5 % (0-10); NRBC Flagged by Analyzer 0 % (0-5); Neutrophil # 9.16 X10^3/uL (2.7-7.7); Neutrophil % 74.5 % (47-70); Platelet Count 238 K/mm3 (150-450); RBC Distribution Width CV 13.8 % (11.6-14.6); RBC Distribution Width SD 45.7 fl (35.1-43.9); Red Blood Count 5.22 M/mm3 (4.2-5.4); White Blood Count 12.3 K/mm3 (4.4-11.0)
[2024-02-03] MEDS: Ketorolac 15 MG/ML Vial IV (14:06)
[2024-02-03] MEDS: Ondansetron 4 MG/2 ML Vial IV (14:08)
[2024-02-03] MEDS: 0.9% Normal Saline (1000mL) 1,000 ML 125 ML IV (14:15)
[2024-02-03 14:21] LABS: ALB/GLOB Ratio 0.9 RATIO (0.9-2.4); AST(SGOT) 17 U/L (15-37); Alanine Aminotransfer ALT/SGPT 20 U/L (13-56); Albumin, Serum 3.9 g/dL (3.2-5.0); Alkaline Phosphatase 120 U/L (45-117); Anion Gap 8 (5-15); BUN 14 mg/dL (7-18); BUN/Creat Ratio 9.6 RATIO (10-20); Calcium,Total 10.4 mg/dL (8.5-10.1); Chloride 104 mmol/L (98-107); Creatinine, Serum 1.46 mg/dL (0.55-1.02); EST Glomerular Filtration Rate 37 mL/min (>60); Est Glom Filt Rate - Afr Amer 45 mL/min (>60); Globulin 4.3 g/dL (2.2-4.2); Glucose 152 mg/dL (74-106); Protein, Total 8.2 g/dL (6.4-8.2); Sodium Level 137 mmol/L (136-145)
[2024-02-03 14:53] LABS: Lactic Acid 1.2 mmol/L (0.4-1.9)
[2024-02-03 15:00] VITALS: BP 231/87; PULSE 53; RESP 14; O2SAT 97
[2024-02-03] MEDS: ALPRAZolam 0.5 MG Tablet PO (16:31)
[2024-02-03 16:36] LABS: Mucous, Urine 0 SEEN /hpf (<or=2+); Red Blood Cells-Urine 0 SEEN /hpf (0-5)
[2024-02-03 16:41] LABS: Color, Urine Yellow (Yellow); Glucose, Dipstick Normal (Normal); Ketone-Dipstick Negative (Negative); Leukocyte Esterase-Dipstick 500 /ul (Negative); Nitrite-Dipstick Positive (Negative); Occult Blood-Urine 25 /ul (Negative); Protein-Dipstick 100 mg/dl (Negative); Urine Bilirubin Dipstick Negative (Negative); Urine Clarity Sl. Cloudy (Clear); Urine Urobilinogen Normal (Normal)
[2024-02-03 16:54] LABS: Squamous Epithelial Cells - UA 0-5 SEEN /hpf (5-10); White Blood Cells 50-100 SEEN /hpf (0-5)
[2024-02-03 16:55] LABS: Bacteria 2+ /hpf (None Seen)
[2024-02-03 17:00] VITALS: BP 138/106; PULSE 54; RESP 14; O2SAT 97
[2024-02-03] MEDS: Ceftriaxone 1 GM/50 ML BAG IV (17:28)
[2024-02-03 18:42] VITALS: BP 224/67; PULSE 55; RESP 12; TEMP 36.1; O2SAT 96
== END 2024-02-03 18:43 | disposition home or self-care (01) ==
PROVIDERS: Emergency Provider Emergency Medicine; PCP Internal Medicine; Visit Provider Emergency Medicine
DX: N13.2 Hydronephrosis with renal and ureteral calculous obstruction (principal); I10 Essential (primary) hypertension; E78.5 Hyperlipidemia, unspecified; F17.210 Nicotine dependence, cigarettes, uncomplicated; Z79.899 Other long term (current) drug therapy
CPT/HCPCS: 74176; 80053; 81001; 83605; 85025; 87077; 87086; 87088; 87186; 96361; 96365; 96375; 99283; J7030; A4216; J2405

== ENCOUNTER 2024-02-13 13:36 | Emergency (ER) | payer OTHER, MEDICARE, SELFPAY ==
[2024-02-13 13:37] VITALS: BP 217/111; PULSE 66; RESP 18; TEMP 36.1; O2SAT 97; BMI 29.9
[2024-02-13 14:30] LABS: Absolute Lymphocyte Count 3.17 X10^3/uL (0.83-4.51); Absolute Neutrophil Count 6.3 X10^3/uL (2.0-7.7); Basophil# 0.08 X10^3/uL; Basophil% 0.8 % (0-1); Eosinophil# 0.13 X10^3/uL; Eosinophils% 1.2 % (0-5); Hematocrit 44.4 % (37-47); Hemoglobin 14.5 g/dL (12.0-15.0); Lymphocyte # 3.17 X10^3/ul (0.83-4.51); Lymphocyte % 30.1 % (19-41); Mean Corp Hgb Conc 32.7 g/dL (32-36); Mean Corpuscular Hgb 29.6 pg (27.0-32.0); Mean Corpuscular Volume 90.6 fL (81-99); Mean Platelet Vol. 9.1 fl (6.2-12.0); Monocyte# 0.76 X10^3/uL; Monocyte% 7.2 % (0-10); NRBC Flagged by Analyzer 0 % (0-5); Neutrophil # 6.33 X10^3/uL (2.7-7.7); Neutrophil % 60.2 % (47-70); Platelet Count 219 K/mm3 (150-450); RBC Distribution Width CV 13.9 % (11.6-14.6); RBC Distribution Width SD 46.4 fl (35.1-43.9); White Blood Count 10.5 K/mm3 (4.4-11.0)
[2024-02-13 14:37] LABS: Mucous, Urine 0 SEEN /hpf (<or=2+)
[2024-02-13 14:41] LABS: Color, Urine Yellow (Yellow); Glucose, Dipstick Normal (Normal); Ketone-Dipstick Negative (Negative); Leukocyte Esterase-Dipstick 500 /ul (Negative); Nitrite-Dipstick Negative (Negative); Occult Blood-Urine 25 /ul (Negative); Protein-Dipstick 100 mg/dl (Negative); Specific Gravity, Urine 1.015 (1.002-1.030); Urine Bilirubin Dipstick Negative (Negative); Urine Clarity Sl. Cloudy (Clear); Urine Urobilinogen Normal (Normal)
[2024-02-13 14:50] LABS: Squamous Epithelial Cells - UA 5-10 SEEN /hpf (5-10); White Blood Cells 10-25 SEEN /hpf (0-5)
[2024-02-13 14:51] LABS: Bacteria 1+ /hpf (None Seen); Red Blood Cells-Urine 0-5 SEEN /hpf (0-5)
[2024-02-13 15:01] LABS: ALB/GLOB Ratio 0.9 RATIO (0.9-2.4); AST(SGOT) 15 U/L (15-37); Alanine Aminotransfer ALT/SGPT 19 U/L (13-56); Albumin, Serum 3.6 g/dL (3.2-5.0); Alkaline Phosphatase 102 U/L (45-117); Anion Gap 5 (5-15); BUN 18 mg/dL (7-18); Calcium,Total 9.7 mg/dL (8.5-10.1); Chloride 105 mmol/L (98-107); Creatinine, Serum 1.38 mg/dL (0.55-1.02); EST Glomerular Filtration Rate 40 mL/min (>60); Est Glom Filt Rate - Afr Amer 48 mL/min (>60); Estimated Creatinine Clearance 30.62 ml/min; Glucose 126 mg/dL (74-106); Potassium 4.1 mmol/L (3.5-5.1); Protein, Total 7.6 g/dL (6.4-8.2); Sodium Level 135 mmol/L (136-145)
[2024-02-13 15:36] VITALS: BP 219/17; PULSE 62; RESP 16; O2SAT 97
--- NOTE | 2024-02-13 16:38 | EDS_ITS ---
HPI History of Present Illness Chief Complaint: Flank Pain Informant: patient Onset/Context/Timing Onset: Weeks (1-2) Context: Gradual Onset Timing: Continuous Quality: Aching Location: Right flank and right lower abdomen Worsened by: Certain movements Relieved by: Nothing Narrative Narrative: Patient presents with right flank pain and right lower abdominal pain that has been getting progressively worse over the past 1 to 2 weeks. Patient describes her pain as dull and aching. Patient states it is mainly over the right flank and right lower abdomen. Patient states it is worse with certain movements. Patient states she has pain when she stands completely upright and ambulates. Patient states nothing makes her pain better. Patient denies any nausea or vomiting. Patient denies any dysuria or hematuria. Patient denies any fevers or chills. 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 Acute biliary pancreatitis Osteoarthritis Heart murmur High triglycerides High cholesterol Hypertension Arthritis Facet arthropathy, lumbar History of chest pain Home Medications ?Medication ?Instructions ?Recorded ?Last Taken ?Type levothyroxine 100 mcg tablet 100 mcg PO DAILY THYROID 12/28/20 08/26/21 History carvedilol 25 mg tablet 25 mg PO BID bp 08/12/21 08/26/21 History ondansetron 4 mg disintegrating 4 mg PO Q8H PRN PRN Nausea #10 tabs 02/03/24 Unknown Rx tablet cephalexin 500 mg capsule 500 mg PO Q6 #28 CAPSULES 02/13/24 Unknown Rx ergocalciferol (vitamin D2) 1,250 1,250 mcg PO Q7D 02/13/24 Unknown History mcg (50,000 unit) capsule losartan 100 mg tablet 50 mg PO BID 02/13/24 Unknown History Allergy/AdvReac Type Severity Reaction Status Date / Time Penicillins Allergy Severe Rash Verified 02/13/24 13:37 Anesthetics - Amide Type - Allergy Swelling Verified 02/13/24 13:37 Select A Anesthetics - Nubia Type- Allergy Swelling Verified 02/13/24 13:37 Parabens Iodinated Contrast Media Allergy Anaphylaxis Verified 02/13/24 13:37 Antihistamines - Alkylamine AdvReac Unknown heart Verified 02/13/24 13:37 racing enalapril AdvReac Unknown myalgias Verified 02/13/24 13:37 levothyroxine sodium (From AdvReac Unknown fatigue Verified 02/13/24 13:37 Synthroid) metoprolol (From Lopressor) AdvReac Unknown myalgias Verified 02/13/24 13:37 Family History Mother Heart disease Hypertension HLD (hyperlipidemia) Father Cancer Patient states spider cancer. Surgical History History of tooth extraction Hx of cystoscopy History of D&C History of tonsillectomy Presence of coronary angioplasty implant and graft (~10/29/12) Social History household members: spouse Smoking Status: Heavy Smoker (>10/day) how long ago did patient quit smoking: Ongoing tobacco use since teenager, 05/22 ppd. alcohol intake: never substance use type: does not use caffeine: Yes Type: carbonated beverages, coffee and tea what type of physical activity do you participate in: none ROS ROS ED Constitutional Constitutional ED: Denies chills or fever(s) Eyes Eyes: Denies blurry vision or change in vision ENT ENT ED: Denies rhinorrhea or sore throat Cardiovascular Cardiovascular: Denies chest pain or palpitations Respiratory/Chest Respiratory/Chest: Denies cough or dyspnea Gastrointestinal Gastrointestinal: Reports abdominal pain; Denies nausea or vomiting Genitourinary Genitourinary ED: Denies dysuria or hematuria Musculoskeletal Musculoskeletal: Reports back pain; Denies neck pain Integumentary Denies abscess or rash Neurologic Neurologic: Denies headache(s) or weakness Allergic/Immunologic Allergic/Immunologic ED: Denies mouth swelling or urticaria EXAM Physical Exam Const Vital Signs: 02/13/24 13:37 02/13/24 15:36 02/13/24 17:00 Temperature 97 F L Temperature Source Temporal Pulse Rate 66 62 93 Respiratory Rate 18 16 16 Blood Pressure 217/111 H 219/17 H 145/88 H Blood Pressure Mean 146 84 107 Pulse Ox 97 97 99 Oxygen Delivery Method Room Air Room Air Room Air 02/13/24 18:40 02/13/24 20:00 02/13/24 20:27 Temperature 97.8 F Temperature Source Pulse Rate 61 68 59 L Respiratory Rate 16 16 16 Blood Pressure 230/92 H 221/84 H 213/65 H Blood Pressure Mean 138 129 114 Pulse Ox 95 94 96 Oxygen Delivery Method Room Air Room Air Positive well nourished and well developed General Appearance ED: well developed and NAD HEENT Reports moist mucous membranes Neck supple and no JVD Resp normal respiratory effort and clear to auscultation bilaterally Cardio regular rate and regular rhythm GI non-distended Palpation: soft and tender RLQ and RUQ; Negative for guarding or rebound tenderness present Extremity normal to inspection General Extremety ED: Negative for edema or tenderness General Extremity: Negative for edema Neuro oriented x3, CN's II-XII intact bilaterally and no sensory deficits noted Sensorium / Orientation: alert Motor Exam: strength 5/5 throughout Psych mental status grossly normal MDM MDM MDM Narrative Medical decision making narrative: Differential diagnosis includes ureteral calculus, pyelonephritis, urinary tract infection, ovarian cyst, appendicitis, gastroenteritis, and mesenteric adenitis. CBC will be obtained to assess for leukocytosis and anemia. Comprehensive metabolic profile will be obtained to assess for hepatic function, renal function, and electrolyte abnormality. Urinalysis will be obtained to assess for urinary tract infection and hematuria. CT scan of the abdomen pelvis will be obtained to assess for appendicitis, ureteral calculus and pyelonephritis. Lab Data Attestation: I reviewed the patient's lab results. Lab results narrative: CBC was reviewed and was within normal limits. Comprehensive metabolic profile was reviewed. Creatinine was slightly elevated at 1.38. The remainder was within normal limits. Urinalysis was reviewed. Leukocyte esterase was 500 with 10-25 white blood cells. There is 1+ bacteria. There are 5-10 epithelial cells. Labs: Laboratory Results - last 24 hr 02/13/24 02/13/24 14:10 14:24 WBC 10.5 RBC 4.90 Hgb 14.5 Hct 44.4 MCV 90.6 MCH 29.6 MCHC 32.7 RDW Std Deviation 46.4 H RDW Coeff of [place] 13.9 Plt Count 219 MPV 9.1 Immature Gran % (Auto) 0.500 Neut % (Auto) 60.2 Lymph % (Auto) 30.1 [place] % (Auto) 7.2 Eos % (Auto) 1.2 Baso % (Auto) 0.8 Absolute Neuts (auto) 6.3 Absolute Lymphs (auto) 3.17 Nucleated RBC % 0 Sodium 135 L Potassium 4.1 Chloride 105 Carbon Dioxide 25.0 Anion Gap 5 BUN 18 Creatinine 1.38 H Estim Creat Clear Calc 30.62 Est GFR (MDRD) Af Amer 48 L Est GFR (MDRD) Non-Af 40 L BUN/Creatinine Ratio 13.0 Glucose 126 H Calcium 9.7 Total Bilirubin 0.80 AST 15 ALT 19 Alkaline Phosphatase 102 Total Protein 7.6 Albumin 3.6 Globulin 4.0 Albumin/Globulin Ratio 0.9 Urine Color Yellow Urine Clarity Sl. Cloudy Urine pH 6.0 Ur Specific [place] 1.015 Urine Protein 100 H Urine Glucose (UA) Normal Urine Ketones Negative Urine Occult Blood 25 H Urine Nitrite Negative Urine Bilirubin Negative Urine Urobilinogen Normal Ur Leukocyte Esterase 500 H Urine RBC 0-5 SEEN Urine WBC 10-25 SEEN Ur Squamous Epith Cells 5-10 SEEN Urine Bacteria 1+ Urine Mucus 0 SEEN Radiography Diagnostic Testing: Clinical Impression(s) from Imaging Studies Abdomen/Pelvis CT 02/13/24 16:47 IMPRESSION: Bilateral renal calculi. No hydronephrosis. Electronically Signed: Oliver Sr DO at 18:06 EDT Reading Location ID and State: [address] [place] [address] Tel [phone], Service support , CT scan of the abdomen pelvis was obtained. There are bilateral renal calculi. There is no ureteral calculi. There is no hydronephrosis. There is no evidence of appendicitis. This was interpreted by the radiologist and was also independently reviewed by myself. Treatment and Re-Evaluation :: Patient was given IV fluids. Patient declined morphine and Zofran. Patient was given a dose of Tylenol per her request. Patient was also given a dose of Xanax. Patient states that this normally helps with her blood pressure. Prior urine culture was reviewed. It grew out E. coli that was sensitive to everything. Patient was given a dose of Rocephin here. Patient was advised of her findings. Patient was given a prescription for Keflex. Patient was feeling better on reevaluation. Patient was instructed to follow-up with her primary care physician in 5 to 7 days. Patient was also instructed to follow-up with Dr. Zamora. Patient was instructed to return if worse in any way. Patient understood and was agreeable with the plan. All questions were answered. Discharge Plan Triage Chief Complaint: Flank Pain ED Provider: Brandan Millan Dx/Rx/DC Orders Clinical Impression: Acute right flank pain, Acute UTI Instructions: ED Flank Pain, Uncertain Cause, ED Cystitis Female Adult Prescriptions: Continued cephalexin 500 mg capsule 500 mg PO Q6 Qty: 28 0RF No Action levothyroxine 100 mcg tablet 100 mcg PO DAILY carvedilol 25 mg tablet 25 mg PO BID ergocalciferol (vitamin D2) 1,250 mcg (50,000 unit) capsule 1,250 mcg PO Q7D losartan 100 mg tablet 50 mg PO BID ondansetron 4 mg tablet,disintegrating 4 mg PO Q8H PRN PRN (Reason: Nausea) Qty: 10 0RF Primary Care Provider: Gema Laura Referrals: Gema Laura MD [Primary Care Provider] - 5-7 Days Nirmal Zamora MD [Med Staff - Active Staff] - 5-7 Days Print Language: Andorran Disposition Disposition: Home, Self Care Discharge Date/Time: 02/13/24 20:28
--- NOTE | 2024-02-13 16:47 | CT_ITS ---
STUDY: CT ABDOMEN AND PELVIS WITHOUT CONTRAST REASON FOR EXAM: Female, 73 years old. Right flank pain RADIATION DOSAGE (If Supplied By Facility): CTDIvol = ( 10.54 ) mGy, DLP = ( 473.83 ) mGycm TECHNIQUE: Transaxial images were obtained from the dome of the diaphragm to the symphysis pubis without oral contrast, and without intravenous contrast. Sagittal and coronal images were reconstructed. Individualized dose optimization techniques were used for this CT. COMPARISON: None. FINDINGS: The visualized lung bases are unremarkable. The visualized portions of the heart are within normal limits. Normal liver. Normal gallbladder and extrahepatic biliary system. Normal spleen. Normal pancreas. Normal bilateral adrenal glands. Up to 1.5 cm stones in the right kidney. Probable 1.1 cm hyperdense cyst of the right kidney. 2 mm stone in the left kidney. Normal visualized stomach. Normal small intestine. Normal colon. The appendix is visualized and appears normal. Calcified abdominal aorta. Normal inferior vena cava. Normal retroperitoneum. Normal urinary bladder. Normal abdominal wall. Normal osseous structures. CT/Abdomen/Pelvis without Cont IMPRESSION: Bilateral renal calculi. No hydronephrosis. Electronically Signed: Oliver Sr DO at 18:06 EDT Reading Location ID and State: [facility] / [place] Tel [phone], Service support ,
[2024-02-13 17:00] VITALS: BP 145/88; PULSE 93; RESP 16; O2SAT 99
[2024-02-13 18:40] VITALS: BP 230/92; PULSE 61; RESP 16; O2SAT 95
[2024-02-13] MEDS: Ceftriaxone 1 GM/50 ML BAG IV (18:41)
[2024-02-13] MEDS: Acetaminophen 500 MG Tablet 1000 MG PO (19:11)
[2024-02-13] MEDS: ALPRAZolam 0.5 MG Tablet PO (19:21)
[2024-02-13 20:00] VITALS: BP 221/84; PULSE 68; RESP 16; O2SAT 94
[2024-02-13 20:27] VITALS: BP 213/65; PULSE 59; RESP 16; TEMP 36.6; O2SAT 96
== END 2024-02-13 20:28 | disposition home or self-care (01) ==
PROVIDERS: Emergency Provider Emergency Medicine; PCP Internal Medicine; Visit Provider Emergency Medicine
DX: R10.9 Unspecified abdominal pain (principal); I48.91 Unspecified atrial fibrillation; N18.30 Chronic kidney disease, stage 3 unspecified; N39.0 Urinary tract infection, site not specified; I12.9 Hypertensive chronic kidney disease with stage 1 through stage 4 chronic kidney disease, or unspecified chronic kidney disease; E78.00 Pure hypercholesterolemia, unspecified; I25.10 Atherosclerotic heart disease of native coronary artery without angina pectoris; Z87.891 Personal history of nicotine dependence; I25.2 Old myocardial infarction; E03.9 Hypothyroidism, unspecified; Z79.899 Other long term (current) drug therapy; Z95.5 Presence of coronary angioplasty implant and graft
CPT/HCPCS: 74176; 80053; 81001; 85025; 87086; 96365; 99284; J7030; A4216; J2405

== ENCOUNTER 2024-03-05 06:30 | Day surgery (SDC) | payer MEDICARE, OTHER, SELFPAY ==
[2024-03-05] VITALS (14 sets, daily range): BP systolic 160–232; BP diastolic 66–93; PULSE 53–69; RESP 16–18; TEMP 36.2–36.7; O2SAT 93–100; BMI 29.2
[2024-03-05] MEDS: Lactated Ringers 1,000 ML 15 ML IV (07:11)
--- NOTE | 2024-03-05 07:25 | PCM.PRE.AN2 ---
ASA Classification* ASA Classification ASA Classification: 3 Assessment & Plan Anesthesia* Anesthesia Assessment Anesthesia Assessment: Discussed sedation and/or anesthesia options, risks, benefits, and alternatives with patient/parents/legal guardian/POA. Questions invited. The patient/parents/legal guardian/POA seems to understand and agrees to proceed with anesthesia plan. Reviewed the physical assessment, medical history, allergy history and patient home medications list prior to surgery/procedure/anesthetic and documented any changes. Performed airway and anesthesia risk assessments. Anesthesia Type Anesthesia Type: General Anesthesia Focused Assessment* Temperature: 97.8 F Pulse Rate: 69 Blood Pressure: 160/81 Respiratory Rate: 17 Pulse Ox: 96 Airway Assessment Mouth opens: >3 cm Mallampati Score: II Focused Labs Anesthesia Preop lab: CBC WBC 10.5 K/mm3 (4.4-11.0) 02/13/24 14:10 RBC 4.90 M/mm3 (4.2-5.4) 02/13/24 14:10 Hgb 14.5 g/dL (12.0-15.0) 02/13/24 14:10 Hct 44.4 % (37-47) 02/13/24 14:10 Plt Count 219 K/mm3 (150-450) 02/13/24 14:10 CHEMISTRY Potassium 4.1 mmol/L (3.5-5.1) 02/13/24 14:10 Sodium 135 mmol/L (136-145) L 02/13/24 14:10 Magnesium 2.0 mg/dL (1.6-2.6) 08/12/21 00:50 BUN 18 mg/dL (7-18) 02/13/24 14:10 Creatinine 1.38 mg/dL (0.55-1.02) H 02/13/24 14:10 Glucose 126 mg/dL (74-106) H 02/13/24 14:10 POC Glucose 127 mg/dL (74-106) H 08/12/21 05:55 TSH 0.86 uIU/mL (0.358-3.74) 08/12/21 00:50 COAG PT 13.4 SECONDS (11.9-14.4) 02/20/12 06:00 Pre-Assessment Diagnosis/Proposed Procedure Planned Operative Procedure(s): CYSTO URETEROSCOPY LASER STENT RIGHT Anesthesia History Anesthesia History - rehabilitation nurse: Anesthesia History - rehabilitation nurse Hx Hospitalization No 02/26/24 12:07 Any Problems With Anesthesia Yes: FELT PARALYZED AND 02/26/24 12:07 COULDNT BREATHE'' REQUESTS LIGHT ANESTHESIA Cholinesterase deficiency No 02/26/24 12:07 You/Your Family Experience No 02/26/24 12:07 fever (hyperthermia) with Relationship Recent Exposure to Contagious No 03/05/24 07:06 Disease Does patient have nerve No 02/26/24 12:07 stimulator Patient instructed to have device shut off --Does patient have Pacemaker No 03/05/24 07:06 or ICD? When Was Last Pacemaker Check QUESTION #4 FULL TEXT: You/Your Family Experience fever (hyperthermia) with Anesthesia Last Oral Intake Last Oral intake: Last Oral Intake NPO since 04:30 03/05/24 07:06 Meds taken in AM with sips of Yes 03/05/24 07:06 water? Meds patient instructed to see home med list 03/05/24 07:06 take am of surgery PONV PONV - rehabilitation nurse: PONV - rehabilitation nurse Female Yes 02/26/24 12:07 HX of Motion Sickness No 02/26/24 12:07 HX of N/V After Surgery No 02/26/24 12:07 Non-Smoker No 02/26/24 12:07 Duration of Surgery greater Yes 02/26/24 12:07 than 60 minutes Number of Risk Factors 2 02/26/24 12:07 PONV Score Moderate Risk 02/26/24 12:07 Height & Weight Height & Weight: Anesthesia: Height & Weight Height 5 ft 03/05/24 07:06 Weight: 68 kg 03/05/24 07:06 Body Mass Index (BMI) 29.2 03/05/24 07:06 Respiratory Assessment Respiratory Assessment - rehabilitation nurse: Respiratory Tract Infection Hx - rehabilitation nurse Hx Respiratory Tract Infection No 02/26/24 12:07 STOP Sleep Apnea STOP Sleep Apnea - rehabilitation nurse: STOP Sleep Apnea - rehabilitation nurse Hx Hypertension Yes: CONTROLLED WITH MED 02/26/24 12:07 Hx Sleep Apnea Yes 02/26/24 12:07 CPAP Yes: NON COMPLIANT 02/26/24 12:07 BIPAP No 02/26/24 12:07 Do you snore loudly (louder than talking or can be heard Do you often feel tired/ fatigued/ sleepy during daytime? Has anyone observed you stop breathing during sleep? STOP Results Positive 02/26/24 12:07 QUESTION #5 FULL TEXT : Do you snore loudly (louder than talking or can be heard through closed doors)? Tobacco Use History Tobacco Use History - rehabilitation nurse: Tobacco Use History - rehabilitation nurse Tobacco Use Smoking Status Heavy Smoker (>10/day) 02/26/24 12:07 Hx Tobacco Use Yes 02/26/24 12:07 Years Smoking Packs Smoked per Day Smoking Cessation Date was within the last 15 years Hx Smoking Cessation Date Hx Smoking Cessation No 02/26/24 12:07 Counseling Hematologic Medial History Hematologic Hx - rehabilitation nurse: Hematologic Medical Hx - hasher operator Hx of Blood Transfusion No 02/26/24 12:07 Hx of Transfusion in last 3 No 02/26/24 12:07 Months Date of Last Transfusion (if within last 3 months) Ever experience any problems No 02/26/24 12:07 with transfusion(s)? Specify any problems Hx of Preganancy in last 3 No 02/26/24 12:07 Months Nurse Filling Out Transfusion DSCHRIBER 02/26/24 12:07 & Questions: Date: 02/26/24 02/26/24 12:07 Time: 12:10 02/26/24 12:07 Patient unable to answer at this time (ie. confused, unrespo /Reproduction History /Reproductive History - rehabilitation nurse: /Reproductive Hx- rehabilitation nurse Hx Now No 02/26/24 12:07 Gestational Age (in weeks): EDC: Hx Hx Para Hx Section SAB No 02/26/24 12:07 Active Medications Active Medications: Current Medications Generic Name Dose Route Start Last Admin Trade Name Freq PRN Reason Stop Dose Admin Cefazolin Sodium 2 gm/ N/A 20 mls @ 400 mls/hr 03/05/24 14:10 IV 03/05/24 14:12 PREOP ONE Lactated Ringer's 1,000 mls @ 15 mls/hr 03/05/24 06:45 03/05/24 07:11 IV 03/10/24 20:04 15 mls/hr .Q48H BHARAT Administration Protocol PFSH Medical History Fatigue Syncope Fibromyalgia History of IBS Heartburn Shortness of breath on exertion History of pain when walking History of edema Wears dentures Wears glasses Cancer Anxiety Thyroid disease Restless legs Smoker CPAP (continuous positive airway pressure) dependence History of stress test History of echocardiogram Cardiology follow-up encounter Atrial fibrillation Myocardial infarct HLD (hyperlipidemia) Kidney stones CKD (chronic kidney disease) stage 3, GFR 30-59 ml/min Hypothyroidism Essential hypertension Presence of stent in coronary artery (~10/29/12) Atherosclerotic heart disease of [place] coronary artery without angina pectoris Osteoarthritis Heart murmur High cholesterol Arthritis Facet arthropathy, lumbar History of chest pain Home Medications ?Medication ?Instructions ?Recorded ?Last Taken ?Type levothyroxine 100 mcg tablet 100 mcg PO DAILY THYROID 12/28/20 08/26/21 History carvedilol 25 mg tablet 25 mg PO BID bp 08/12/21 08/26/21 History ondansetron 4 mg disintegrating 4 mg PO Q8H PRN PRN Nausea #10 tabs 02/03/24 Unknown Rx tablet cephalexin 500 mg capsule 500 mg PO Q6 #28 CAPSULES 02/13/24 Unknown Rx ergocalciferol (vitamin D2) 1,250 1,250 mcg PO Q7D 02/13/24 Unknown History mcg (50,000 unit) capsule losartan 100 mg tablet 50 mg PO BID 02/13/24 Unknown History aspirin 81 mg tablet,delayed 81 mg PO DAILY 02/26/24 02/26/24 History release (Adult Low Dose Aspirin) Allergy/AdvReac Type Severity Reaction Status Date / Time Penicillins Allergy Severe Rash Verified 03/05/24 06:35 Anesthetics - Amide Type - Allergy Swelling Verified 03/05/24 06:35 Select A Anesthetics - [place] Type- Allergy Swelling Verified 03/05/24 06:35 Parabens Iodinated Contrast Media Allergy Anaphylaxis Verified 03/05/24 06:35 Antihistamines - Alkylamine AdvReac Unknown heart Verified 03/05/24 06:35 racing enalapril AdvReac Unknown myalgias Verified 03/05/24 06:35 levothyroxine sodium (From AdvReac Unknown fatigue Verified 03/05/24 06:35 Synthroid) metoprolol (From Lopressor) AdvReac Unknown myalgias Verified 03/05/24 06:35 Family History Mother Heart disease Hypertension HLD (hyperlipidemia) Father Cancer Patient states spider cancer. Surgical History History of esophagogastroduodenoscopy (EGD) History of cardiac catheterization Hx of eye surgery History of cystoscopy History of tooth extraction History of D&C History of tonsillectomy Presence of coronary angioplasty implant and graft (~10/29/12) Social History household members: spouse Smoking Status: Heavy Smoker (>10/day) how long ago did patient quit smoking: Ongoing tobacco use since teenager, 1/2 ppd. alcohol intake: never substance use type: does not use caffeine: Yes Type: carbonated beverages, coffee and tea what type of physical activity do you participate in: none Review of Systems (Anesthesia) ROS Narrative System reviewed and no additional complaints, except as documented.
--- NOTE | 2024-03-05 08:04 | HP.PCM_ITS ---
HPI - General General Date of Service: 03/05/24 Chief Complaint: Right kidney stone HPI Narrative GAYLE CHO, is a 73 F who presents for laser lithotripsy and treatment of a stone in the right kidney plan to laser the stone and placed a stent on the right side. [facility] Medical History Fatigue Syncope Fibromyalgia History of IBS Heartburn Shortness of breath on exertion History of pain when walking History of edema Wears dentures Wears glasses Cancer Anxiety Thyroid disease Restless legs Smoker CPAP (continuous positive airway pressure) dependence History of stress test History of echocardiogram Cardiology follow-up encounter Atrial fibrillation Myocardial infarct HLD (hyperlipidemia) Kidney stones CKD (chronic kidney disease) stage 3, GFR 30-59 ml/min Hypothyroidism Essential hypertension Presence of stent in coronary artery (~10/29/12) Atherosclerotic heart disease of [place] coronary artery without angina pectoris Osteoarthritis Heart murmur High cholesterol Arthritis Facet arthropathy, lumbar History of chest pain Home Medications ?Medication ?Instructions ?Recorded ?Last Taken ?Type levothyroxine 100 mcg tablet 100 mcg PO DAILY THYROID 12/28/20 08/26/21 History carvedilol 25 mg tablet 25 mg PO BID bp 08/12/21 08/26/21 History ondansetron 4 mg disintegrating 4 mg PO Q8H PRN PRN Nausea #10 tabs 02/03/24 Unknown Rx tablet cephalexin 500 mg capsule 500 mg PO Q6 #28 CAPSULES 02/13/24 Unknown Rx ergocalciferol (vitamin D2) 1,250 1,250 mcg PO Q7D 02/13/24 Unknown History mcg (50,000 unit) capsule losartan 100 mg tablet 50 mg PO BID 02/13/24 Unknown History aspirin 81 mg tablet,delayed 81 mg PO DAILY 02/26/24 02/26/24 History release (Adult Low Dose Aspirin) Allergy/AdvReac Type Severity Reaction Status Date / Time Penicillins Allergy Severe Rash Verified 03/05/24 06:35 Anesthetics - Amide Type - Allergy Swelling Verified 03/05/24 06:35 Select A Anesthetics - [place] Type- Allergy Swelling Verified 03/05/24 06:35 Parabens Iodinated Contrast Media Allergy Anaphylaxis Verified 03/05/24 06:35 Antihistamines - Alkylamine AdvReac Unknown heart Verified 03/05/24 06:35 racing enalapril AdvReac Unknown myalgias Verified 03/05/24 06:35 levothyroxine sodium (From AdvReac Unknown fatigue Verified 03/05/24 06:35 Synthroid) metoprolol (From Lopressor) AdvReac Unknown myalgias Verified 03/05/24 06:35 Family History Mother Heart disease Hypertension HLD (hyperlipidemia) Father Cancer Patient states spider cancer. Surgical History History of esophagogastroduodenoscopy (EGD) History of cardiac catheterization Hx of eye surgery History of cystoscopy History of tooth extraction History of D&C History of tonsillectomy Presence of coronary angioplasty implant and graft (~10/29/12) Social History household members: spouse Smoking Status: Heavy Smoker (>10/day) how long ago did patient quit smoking: Ongoing tobacco use since teenager, 1/2 ppd. alcohol intake: never substance use type: does not use caffeine: Yes Type: carbonated beverages, coffee and tea what type of physical activity do you participate in: none Vital Signs Vital Signs Vital Signs: 03/05/24 07:06 03/05/24 07:06 03/05/24 07:25 Temperature 97.8 F 97.8 F Temperature Source Temporal Pulse Rate 69 69 Respiratory Rate 17 17 Respiratory Pattern Normal Blood Pressure 160/81 H 160/81 H Blood Pressure Mean 107 Blood Pressure Source Monitor Blood Pressure Position Semi-Fowlers Blood Pressure Location Right Arm Pulse Ox 96 96 Oxygen Delivery Method Room Air Weight Weight: 68 kg Body Mass Index (BMI) 29.2
[2024-03-05] MEDS: Cefazolin 2 GM in Syringe IV (08:26)
--- NOTE | 2024-03-05 08:36 | PCM.DC ---
Discharge Instructions Diet Discharge Diet: No restrictions Activity Discharge Activity: Return to Normal Activity and May Not Drive (while taking narcotic pain medications.) Dressing / Incision Call your doctor if you observe: Fever of 101 or Higher Follow Up Care Please Follow Up With: Nirmal Zamora MD When: Call [phone] for an appointment Test Results: Test results from this visit will be discussed in further detail at your follow-up appointment, if applicable. Discharge Plan Admission Attending Provider: Nirmal Zamora Primary Care Provider: Gema Laura Instructions Print Language: Luxembourgish Discharge Orders/Prescriptions Prescriptions: No Action levothyroxine 100 mcg tablet 100 mcg PO DAILY carvedilol 25 mg tablet 25 mg PO BID ergocalciferol (vitamin D2) 1,250 mcg (50,000 unit) capsule 1,250 mcg PO Q7D losartan 100 mg tablet 50 mg PO BID cephalexin 500 mg capsule 500 mg PO Q6 Qty: 28 0RF aspirin [Adult Low Dose Aspirin] 81 mg tablet,delayed release (DR/EC) 81 mg PO DAILY ondansetron 4 mg tablet,disintegrating 4 mg PO Q8H PRN PRN (Reason: Nausea) Qty: 10 0RF Referrals / Follow Up: Gema Laura MD [Primary Care Provider] - Disposition Disposition (needs filled in before D/C Order can be placed): Home, Self Care
--- NOTE | 2024-03-05 10:17 | PCM.OPRPT ---
Report of Operation Date of Procedure: 03/05/24 Pre-Operative Diagnosis: Multiple large stones in the right kidney measuring 15 mm 10 mm and 7 mm. Post-Operative Diagnosis: The same Surgery/Procedure Performed:: Cystoscopy, right ureteroscopy laser lithotripsy of multiple stones and right stent placement Description of Surgical Findings:: Indication is a 73-year-old female who has multiple stones in the right kidney she is also been getting recurrent bladder infections suspicious that the stones could be the source of these infections since her causing obstruction of the upper part of the kidney and the stones are significant in size and burden so today organ to proceed with laser lithotripsy of the stones using the thulium laser. Patient was made aware that it is possible I may not be able to get all the stones, there is a risk of infection and the risk of bleeding also risk that she may need multiple procedures to take care of these kidney stones. Her right side was marked consent was given and we proceeded. Findings, successful lasering and complete treatment of all major stones in the right kidney multiple stones are treated into small dust. Patient was taken back to the operating room after induction of anesthesia I by MÓNICA Matos the patient was placed supine on the table and then placed in dorsal lithotomy position. Legs were placed in stirrups making sure to pad all the pressure points. Then the urethra and vaginal area and perineum was prepped and draped in usual sterile fashion. I went into the bladder. On inspection she was found to have a significant cystocele with a significant drop bladder because of this I had a really tip the cystoscope fairly high up as an angle to see the trigone and then I could identify the right ureteral orifice. Then putting some pressure from the inside of the vaginal vault I pushed up on the bladder and I could see the right ureteral orifice and I cannulated this with a 0.038 Glidewire advanced the Glidewire up to the kidney and then over the Glidewire I used a 10 [place] dual-lumen catheter advanced the dual-lumen catheter up the ureter and then put the second Glidewire up into the kidney to secure access. Once both wires were in place the one wire was a working wire and the second wire was a safety wire. The safety wire was left in place and over the working wire went in with a 7.5 [place] flexible ureteroscope and I was able to get up the ureter fairly easily I then worked my way all the way to the kidney inspected the kidney identified that there was a large burden of stones in the upper pole the kidney I first started in the stone that was about 10 mm in size in the upper pole calyx this was lasered completely using the thulium laser and the settings were 0.4 J and 100 Hz total carrera of 40 W I left the settings for the rest of the case at the same setting I then was able to then go to the larger stone that was at 15 mm in size in the upper pole this was a more difficult angle after the stone was starting to become embedded in the kidney itself there was some tissue growing over the stone I had to laser the tissue a little bit and then lasered the stone completely into small pieces it took a long time to laser the stone finding with a stone was lasered and I worked my way into the renal pelvis I then went down to the lower pole pelvis and I found a collection of stones lower pole pelvis these were lasered completely. I then went to the midpole pelvis and midpole calyx and found another collection of small stones of these were lasered completely and then finally went to the upper pole midpole pelvis and also lasered another collection of stones in the little tiny pieces. After all the stones were successfully lasered I then worked my way down the ureter no major fragments were seen along the course of the ureter I then put a Glidewire through the ureteroscope and then backed out the ureteroscope. Over the Glidewire I tried to place a stent but the stent coiled in the bladder so then went back in with the cystoscope put a new wire up into the kidney and over the wire then I placed a stent it was a 6 [place] by 26 cm stent and the stent coiled in the kidney and the bladder in good position left the string of the stent but cut the string short to prevent extraction. Patient's bladder was drained her anesthetic was reversed and she was taken back to the PACU in good condition plan to see her back in 1 week for cystoscopy stent removal in the office Surgeon: Nirmal Zamora Type of Anesthesia: General Anesthesiologist: Alvin Antony Drains: 6fr 26cm stent Estimated Blood Loss (mL): 0 Fluids Replaced: 0 Grafts/Implants Used: stent Procedure Start Time: 08:26 Procedure Stop Time: 10:14 Admit VTE Documentation VTE Present on Admission: No VTE Mechan Device Prophylaxis: SCD's VTE Pharm Prophylaxis ordered?: No
[2024-03-05] MEDS: Ketorolac 15 MG/ML Vial IV (10:39)
--- NOTE | 2024-03-05 11:09 | SUR.PHASEI ---
APRESOLINE GIVEN FOR ELEVATED SBP WHICH WAS REPORTEDLY IN 200'S IN O.R., ALSO IN PACU. PATIENT REPORTEDLY TOLD MAEGAN Beauchamp ADMITTING RN, THAT HER BP NORMALLY RUNS IN THE 200'S SYSTOLIC.
[2024-03-05] MEDS: Acetaminophen 325 MG Tablet 650 MG PO (11:49)
--- NOTE | 2024-03-05 12:19 | PCM.POST.ANE ---
Anesthesia: Postop Eval I Current Vital Signs Temperature: 97.2 F Pulse Rate: 60 Blood Pressure: 213/84 (Similar to baseline) Respiratory Rate: 16 Pulse Ox: 94 Oxygen Delivery Method: Room Air Assessment Airway patent: Yes Spontaneous unlabored respirations: Yes Mental status: Awake and Calm nausea: No Vomiting: No Anesthesia Complication: No Fluid Hydration Crystalloid volume administer (ml): 1,000 Total IV fluid infused: 1,000 Progress Note Anesthesia document: Postop Eval 1 completed: Yes
--- NOTE | 2024-03-05 13:36 | SUR.PHASEII ---
pt requested to take her xanax from home, Xanax is not on her mar and when questioned where she got it pt became vague. Another RN obtained order for ativan po. pt refused, states she wants xanax. This RN obtained an order for xanax, when I went to give it to patient she stated lets hold off, I think I am starting to feel better. Did not give xanax at this time.
--- NOTE | 2024-03-05 17:35 | POSTOPAN2_ITS ---
Anesthesia Postop Eval I Sum Postop Eval Completion status Anesthesia document: Postop Eval 1 completed: Yes Anesthesia Postop Eval I Summary Anesthesia Postop Eval I Summary: Anesthesia Postop Eval I: Assessment Summary Airway patent Yes 03/05/24 12:20 [email or web address] Spontaneous unlabored Yes 03/05/24 12:20 [email or web address] respirations Mental status Awake,Calm 03/05/24 12:20 [email or web address] nausea No 03/05/24 12:20 [email or web address] Vomiting No 03/05/24 12:20 [email or web address] Anesthesia Postop Eval I: Fluid Summary Crystalloid volume administer 1,000 03/05/24 12:20 [email or web address] (ml) Colloids volume administered ( ml) Blood Product volume administered (ml) Total IV fluid infused 1,000 03/05/24 12:20 [email or web address] Anesthesia Postop Eval I: Summary Notes Anesthesia Complication No 03/05/24 12:20 [email or web address] Anesthesia Complication Comment: Post-operative progress note Anesthesia: Postop Eval II Evaluation Mental status: Awake and Calm Pain Level: 1 nausea: No Vomiting: No Complications Anesthesia Complication: No
--- NOTE | 2024-03-05 17:35 | PCM.POSTANE2 ---
Anesthesia Postop Eval I Sum Postop Eval Completion status Anesthesia document: Postop Eval 1 completed: Yes Anesthesia Postop Eval I Summary Anesthesia Postop Eval I Summary: Anesthesia Postop Eval I: Assessment Summary Airway patent Yes 03/05/24 12:20 [email or web address] Spontaneous unlabored Yes 03/05/24 12:20 [email or web address] respirations Mental status Awake,Calm 03/05/24 12:20 [email or web address] nausea No 03/05/24 12:20 [email or web address] Vomiting No 03/05/24 12:20 [email or web address] Anesthesia Postop Eval I: Fluid Summary Crystalloid volume administer 1,000 03/05/24 12:20 [email or web address] (ml) Colloids volume administered ( ml) Blood Product volume administered (ml) Total IV fluid infused 1,000 03/05/24 12:20 [email or web address] Anesthesia Postop Eval I: Summary Notes Anesthesia Complication No 03/05/24 12:20 [email or web address] Anesthesia Complication Comment: Post-operative progress note Anesthesia: Postop Eval II Evaluation Mental status: Awake and Calm Pain Level: 1 nausea: No Vomiting: No Complications Anesthesia Complication: No
== END 2024-03-05 14:06 | disposition home or self-care (01) ==
LOC: SDC 06:31 → AC 06:31
PROVIDERS: PCP Internal Medicine; Referring Provider Urology; Visit Provider Urology
PROC: 0TJ98ZZ Inspection of Ureter, Via Natural or Artificial Opening Endoscopic (ICD-10-PCS; CPT 52352; principal; 2024-03-05 08:25)
DX: N20.0 Calculus of kidney (principal); E11.22 Type 2 diabetes mellitus with diabetic chronic kidney disease; N18.30 Chronic kidney disease, stage 3 unspecified; E78.5 Hyperlipidemia, unspecified; F17.210 Nicotine dependence, cigarettes, uncomplicated; I12.9 Hypertensive chronic kidney disease with stage 1 through stage 4 chronic kidney disease, or unspecified chronic kidney disease; I25.10 Atherosclerotic heart disease of native coronary artery without angina pectoris; Z79.890 Hormone replacement therapy; Z95.5 Presence of coronary angioplasty implant and graft; Z87.19 Personal history of other diseases of the digestive system; E03.9 Hypothyroidism, unspecified
CPT/HCPCS: 52356; 00918; 76000; J7120; A4216; C1758; C1769; C2617; J2405

== ENCOUNTER 2024-03-11 22:36 | Inpatient (IN) | payer MEDICARE, OTHER, SELFPAY ==
[2024-03-11 22:41] VITALS: BP 176/60; PULSE 86; RESP 18; TEMP 37.7; O2SAT 100
[2024-03-11 22:44] VITALS: BP 176/60; PULSE 86; RESP 18; TEMP 37.7; O2SAT 94; BMI 29.7
[2024-03-11 22:54] VITALS: O2SAT 97
[2024-03-11 23:44] VITALS: BP 146/58; PULSE 81; RESP 19; TEMP 36.9; O2SAT 93
[2024-03-12] VITALS (20 sets, daily range): BP systolic 128–195; BP diastolic 46–101; PULSE 64–90; RESP 15–21; TEMP 36.1–37.2; O2SAT 90–98; BMI 30.2
[2024-03-12 00:29] LABS: Absolute Lymphocyte Count 1.15 X10^3/uL (0.83-4.51); Absolute Neutrophil Count 14.9 X10^3/uL (2.0-7.7); Basophil# 0.03 X10^3/uL; Basophil% 0.2 % (0-1); Eosinophil# 0.07 X10^3/uL; Eosinophils% 0.4 % (0-5); Hemoglobin 12.5 g/dL (12.0-15.0); Lymphocyte # 1.15 X10^3/ul (0.83-4.51); Lymphocyte % 6.4 % (19-41); Mean Corp Hgb Conc 33.8 g/dL (32-36); Mean Corpuscular Hgb 30.6 pg (27.0-32.0); Mean Corpuscular Volume 90.7 fL (81-99); Mean Platelet Vol. 9.4 fl (6.2-12.0); Monocyte% 9.4 % (0-10); NRBC Flagged by Analyzer 0 % (0-5); Neutrophil # 14.89 X10^3/uL (2.7-7.7); Neutrophil % 82.5 % (47-70); POSITIVE DIFFERENTIAL YES; Platelet Count 201 K/mm3 (150-450); RBC Distribution Width CV 14.6 % (11.6-14.6); Red Blood Count 4.08 M/mm3 (4.2-5.4)
[2024-03-12 00:42] LABS: ALB/GLOB Ratio 0.7 RATIO (0.9-2.4); AST(SGOT) 7 U/L (15-37); Alanine Aminotransfer ALT/SGPT 11 U/L (13-56); Albumin, Serum 2.8 g/dL (3.2-5.0); Alkaline Phosphatase 83 U/L (45-117); Anion Gap 8 (5-15); BUN 42 mg/dL (7-18); BUN/Creat Ratio 18.1 RATIO (10-20); Chloride 101 mmol/L (98-107); Creatinine, Serum 2.32 mg/dL (0.55-1.02); EST Glomerular Filtration Rate 22 mL/min (>60); Est Glom Filt Rate - Afr Amer 26 mL/min (>60); Estimated Creatinine Clearance 18.17 ml/min; Globulin 3.8 g/dL (2.2-4.2); Glucose 149 mg/dL (74-106); Potassium 4.2 mmol/L (3.5-5.1); Protein, Total 6.6 g/dL (6.4-8.2); Sodium Level 133 mmol/L (136-145)
[2024-03-12 00:50] LABS: Differential Indicated SCAN CRITERIA MET
[2024-03-12 00:56] LABS: Lactic Acid 0.9 mmol/L (0.4-1.9)
--- NOTE | 2024-03-12 01:07 | RAD_ITS ---
INDICATION: fever EXAMINATION/TECHNIQUE: X-RAY - XR Chest 2 Views COMPARISON: Prior study dated: 08/12/2021 FINDINGS: LINES/DEVICES: None. LUNGS: No consolidation. No pneumothorax. MEDIASTINUM: Aorta is atherosclerotic. CARDIAC SILHOUETTE: Not enlarged. BONES AND SOFT TISSUES: No acute abnormalities. RAD/Chest PA and Lateral IMPRESSION: No evidence of active intrathoracic disease. Electronically Signed: Aletha Titus MD at 3:30 EDT ,
--- NOTE | 2024-03-12 01:07 | CT_ITS ---
EXAM: CT Abdomen And Pelvis W/O Contrast Injection FEVER X 2 DAYS,WEAKNESS,DECREASED APPETITE,FELL YESTERDAY,PT HAD LITHOTRIPSY 03-05-24 AND HAS RT URETERAL STENT IN PLACE,ELEVATED WBC HX:DM,HTN,CKD,KS,SKIN CANCER HISTORY: flank pain TECHNIQUE: Routine protocol CT abdomen and pelvis. IV Contrast: None.. Oral contrast: None. RADIATION DOSAGE (If Supplied By Facility): CTDIvol = ( 8.93 ) mGy, DLP = ( 394.84 ) mGycm Individualized dose optimization techniques were used for this CT. COMPARISON: CT abdomen and pelvis 02/13/2024. LIMITATIONS: None. FINDINGS: LOWER CHEST: Included lung bases are clear. LIVER: Grossly unremarkable. GALLBLADDER AND BILIARY TREE: Grossly unremarkable. PANCREAS: Grossly unremarkable. SPLEEN: Grossly unremarkable. ADRENAL GLANDS: Grossly unremarkable. KIDNEYS AND URETERS: Right ureteral stent in place with proximal end in the renal pelvis upper pole, distal end in the bladder, is new compared to prior, with mild hydronephrosis and perinephric and periureteral stranding. Small focus of air in the renal collecting system is likely due to procedure. Multiple calculi in right kidney. There is a 4 mm calculus in the renal pelvis immediately adjacent to the stent. Small hyperattenuating rounded structure likely hyperdense cyst in the right kidney, unchanged, no follow-up needed. No hydronephrosis on the left. PERITONEUM: No free air. No free fluid. BOWEL: No bowel obstruction. APPENDIX: Visualized and unremarkable. No evidence of acute appendicitis. VESSELS: Abdominal aorta is normal caliber. Extensive arterial calcifications. RETROPERITONEUM: Several prominent lymph nodes periaortic/aortocaval especially at the level of the right kidney increased compared to prior May BE reactive. REPRODUCTIVE ORGANS: Grossly unremarkable URINARY BLADDER: Mildly distended. Air in the bladder presumably related to recent procedure. ABDOMINAL WALL: Unremarkable. BONES: No acute abnormalities. Degenerative changes in the lumbar spine CT/Abdomen/Pelvis without Cont IMPRESSION: Interval placement of right ureteral stent with mild right hydronephrosis. Calculus in the proximal ureter adjacent to the stent. Air in the renal collecting system and bladder likely related to recent procedure. Cannot exclude superimposed infection. Retroperitoneal adenopathy increased likely reactive. Electronically Signed: Aletha Titus MD at 3:29 EDT ,
[2024-03-12 01:11] LABS: Mucous, Urine 0 SEEN /hpf (<or=2+); Squamous Epithelial Cells - UA 0 SEEN /hpf (5-10)
[2024-03-12 01:20] LABS: Color, Urine Red (Yellow); Glucose, Dipstick Normal (Normal); Ketone-Dipstick Negative (Negative); Leukocyte Esterase-Dipstick 500 /ul (Negative); Nitrite-Dipstick Negative (Negative); Occult Blood-Urine 250 /ul (Negative); Protein-Dipstick 500 mg/dl (Negative); Specific Gravity, Urine 1.015 (1.002-1.030); Urine Bilirubin Dipstick Negative (Negative); Urine Clarity Turbid (Clear); Urine Urobilinogen Normal (Normal)
[2024-03-12] MEDS: 0.9% Normal Saline (1000mL) 1,000 ML 999 ML IV ×2 (01:27→03:35)
[2024-03-12] MEDS: Ceftriaxone 1 GM/50 ML BAG IV ×2 (01:27→21:23)
[2024-03-12] MEDS: Acetaminophen 500 MG Tablet 1000 MG PO (01:27)
[2024-03-12 01:34] LABS: Bacteria 3+ /hpf (None Seen); Red Blood Cells-Urine > 100 SEEN /hpf (0-5); White Blood Cells 50-100 SEEN /hpf (0-5)
[2024-03-12 01:37] LABS: Differential Comment SCANNED
[2024-03-12 02:04] LABS: Procalcitonin 4.09 ng/mL (0.00-0.09)
--- NOTE | 2024-03-12 03:07 | PCM.HP.STD ---
[facility] - General General Date of Admission: 03/12/24 Date of Service: 03/12/24 Chief Complaint: Fever and Generalized Weakness. HPI Narrative GAYLE CHO, is a 73 F with a past medical history of essential hypertension, hyperlipidemia, hypothyroidism, overweight; with BMI of 29.8 this admission, DC; non compliant with CPAP, history of tobacco abuse, DM-2; of unknown control, CAD; s/p stents (2011 & 2012), history of atrial fibrillation, history of syncope, history of COVID-19 pneumonia, history of skin cancer, IBS, RLS, OA; with widespread somatic dysfunction involving spine and pelvis, CKD; stage III and very recent history of multiple large (~15 mm, ~10 mm and ~7 mm) Right renal calculi; s/p cystoscopy with Right ureteral stent placement and thulium laser lithotripsy by Dr. Zamora of urology one week ago who presents to [facility] ER complaining of fever and generalized weakness. Ms. Cho reports her symptoms began approximately 1 day after her procedure with the gradual-onset of fever and worsening generalized weakness. She states she had initially improved after stent placement and was doing relatively well and then has progressively worsened over the past 6 days to the point where she fell due to her worsening generalized weakness and fatigue. She also admits to spiking a low-grade temperature of 100 ?F and she went on to state that her urologist thought she may have had an infected cyst in her right kidney. There was no report of nausea, vomiting, diarrhea, constipation, chest pain or SOB. In the ER she was noted to have severe leukocytosis of 18K present on admission with positive left shift of 1.1% immature granulocytes and elevated procalcitonin level of 4.09 ng/mL consistent with suspected Sepsis with confirmatory urinalysis positive for acute cystitis; with microscopic hematuria along with additional laboratory evidence of EDITH; with elevated serum creatinine of 2.32 mg/dL and BUN of 42 mg/dL present on admission (up from her baseline serum creatinine of 1.38 mg/dL and BUN of 18 mg/dL) plus corroborating CT evidence of Right hydronephrosis in spite of recent ureteral stent placement with air in the renal collecting system and bladder likely related to recent procedure with superimposed infection strongly suspected along with increased retroperitoneal adenopathy that is likely reactive in nature. She was then admitted to the ICU for treatment under the sepsis protocol for ongoing care for stay that is expected to extend beyond 2 midnights. [facility] Medical History Fatigue Syncope Fibromyalgia History of IBS Heartburn Shortness of breath on exertion History of pain when walking History of edema Wears dentures Wears glasses Cancer Anxiety Thyroid disease Restless legs Smoker CPAP (continuous positive airway pressure) dependence History of stress test History of echocardiogram Cardiology follow-up encounter Atrial fibrillation Myocardial infarct HLD (hyperlipidemia) Kidney stones CKD (chronic kidney disease) stage 3, GFR 30-59 ml/min Hypothyroidism Essential hypertension Presence of stent in coronary artery (~10/29/12) Atherosclerotic heart disease of [place] coronary artery without angina pectoris Osteoarthritis Heart murmur High cholesterol Arthritis Facet arthropathy, lumbar History of chest pain Home Medications ?Medication ?Instructions ?Recorded ?Last Taken ?Type levothyroxine 100 mcg tablet 100 mcg PO DAILY THYROID 12/28/20 03/05/24 History carvedilol 25 mg tablet 25 mg PO BID bp 08/12/21 03/05/24 History ondansetron 4 mg disintegrating 4 mg PO Q8H PRN PRN Nausea #10 tabs 02/03/24 Unknown Rx tablet ergocalciferol (vitamin D2) 1,250 1,250 mcg PO Q7D 02/13/24 03/04/24 History mcg (50,000 unit) capsule losartan 100 mg tablet 50 mg PO BID 02/13/24 03/05/24 History aspirin 81 mg tablet,delayed 81 mg PO DAILY 02/26/24 02/26/24 History release (Adult Low Dose Aspirin) Allergy/AdvReac Type Severity Reaction Status Date / Time Penicillins Allergy Severe Rash Verified 03/11/24 22:41 Anesthetics - Amide Type - Allergy Swelling Verified 03/11/24 22:41 Select A Anesthetics - Nubia Type- Allergy Swelling Verified 03/11/24 22:41 Parabens Iodinated Contrast Media Allergy Anaphylaxis Verified 03/11/24 22:41 Antihistamines - Alkylamine AdvReac Unknown heart Verified 03/11/24 22:41 racing enalapril AdvReac Unknown myalgias Verified 03/11/24 22:41 levothyroxine sodium (From AdvReac Unknown fatigue Verified 03/11/24 22:41 Synthroid) metoprolol (From Lopressor) AdvReac Unknown myalgias Verified 03/11/24 22:41 Family History Mother Heart disease Hypertension HLD (hyperlipidemia) Father Cancer Patient states spider cancer. Surgical History History of esophagogastroduodenoscopy (EGD) History of cardiac catheterization Hx of eye surgery History of cystoscopy History of tooth extraction History of D&C History of tonsillectomy Presence of coronary angioplasty implant and graft (~10/29/12) Social History household members: spouse Smoking Status: Heavy Smoker (>10/day) how long ago did patient quit smoking: Ongoing tobacco use since teenager, 05/22 ppd. alcohol intake: never substance use type: does not use caffeine: Yes Type: carbonated beverages, coffee and tea what type of physical activity do you participate in: none ROS ROS Narrative Review of systems: Constitutional: Patient admits to low-grade fever and generalized weakness with fatigue and malaise as per HPI. She denies chills. Eyes: Patient denies changes in vision or discharge from eyes. ENT: Patient denies runny nose, sore throat or ear pain. Resp: Patient denies shortness of breath or cough. CV: Patient denies chest pain, palpitations or heart racing. GI: Patient denies abdominal pain, nausea, vomiting, diarrhea or constipation. : Patient admits to discolored urine with intermittent Right flank pain. MSK: Patient denies arthralgias or myalgias. Skin: Patient denies rash, abscess or jaundice. Psych: Patient denies symptoms of uncontrolled depression or anxiety. Neuro: Patient denies headache, paresthesias or focal neurologic deficits. Allergy: Patient denies lip swelling, tongue swelling or urticaria. Hematology: Patient denies easy bleeding or easy bruisability. Endocrinology: Patient denies polyuria, polydipsia or polyphagia. 14 point review of systems otherwise negative except for positives noted above in HPI. Vital Signs Vital Signs Vital Signs: 03/11/24 22:41 03/11/24 22:44 03/11/24 22:54 Temperature 100 F H 100 F H Temperature Source Oral Oral Pulse Rate 86 86 Respiratory Rate 18 18 Respiratory Effort Blood Pressure 176/60 H 176/60 H Blood Pressure Mean 98 98 Pulse Ox 100 94 97 Oxygen Delivery Method Room Air Room Air Room Air 03/11/24 22:54 03/11/24 23:44 03/12/24 00:32 Temperature 98.5 F Temperature Source Oral Pulse Rate 81 Respiratory Rate 19 H Respiratory Effort Normal Blood Pressure 146/58 H Blood Pressure Mean 87 Pulse Ox 97 93 Oxygen Delivery Method Room Air Room Air 03/12/24 00:39 03/12/24 00:44 03/12/24 02:00 Temperature 98.7 F Temperature Source Oral Pulse Rate 79 81 80 Respiratory Rate 19 H 18 20 H Respiratory Effort Blood Pressure 146/58 H 151/57 H 144/63 H Blood Pressure Mean 87 88 90 Pulse Ox 94 92 92 Oxygen Delivery Method Room Air Room Air 03/12/24 02:15 03/12/24 02:30 03/12/24 02:45 Temperature 98.5 F Temperature Source Oral Pulse Rate 80 81 76 Respiratory Rate 19 H 18 21 H Respiratory Effort Blood Pressure 158/55 H Blood Pressure Mean 81 Pulse Ox 92 96 90 Oxygen Delivery Method Room Air Weight Weight: 152 lb 5.431 oz Body Mass Index (BMI) 29.7 Physical Exam Const alert, oriented x3, no apparent distress and average body habitus Constitutional Narrative: Patient appears acutely ill. General Appearance: cooperative HEENT normocephalic, head/scalp atraumatic and hearing grossly normal bilaterally HEENT Narrative: Mucous membranes dry. Eyes PERRL and EOMs intact bilaterally Neck no lymphadenopathy and supple Resp normal respiratory effort, no retractions, no use of accessory muscles and clear to auscultation bilaterally Cardio regular rate and regular rhythm GI normal to inspection, nondistended, normoactive bowel sounds, soft to palpation, non-tender and non-distended Extremity normal to inspection, full ROM and no clubbing, cyanosis or edema Skin Skin Narrative: Patient has no evidence of rash, abscess or jaundice. Neuro oriented x3, CN's II-XII intact bilaterally, moves all extremities and no focal motor deficits Sensorium / Orientation: awake, alert, oriented to person, oriented to place and oriented to time Speech: speech normal Psych affect normal Results Medical Records Data Attestation: I reviewed the patient's medical records Lab / Micro Data Attestation: I reviewed the patient's lab results. 03/11/24 23:42 03/11/24 23:42 Labs: Laboratory Results - last 24 hr 03/11/24 23:42: WBC 18.0 H, RBC 4.08 L, Hgb 12.5, Hct 37.0, MCV 90.7, MCH 30.6, MCHC 33.8, RDW Std Deviation 48.0 H, RDW Coeff of [place] 14.6, Plt Count 201, MPV 9.4, Immature Gran % (Auto) 1.100 H, Neut % (Auto) 82.5 H, Lymph % (Auto) 6.4 L, [place] % (Auto) 9.4, Eos % (Auto) 0.4, Baso % (Auto) 0.2, Absolute Neuts (auto) 14.9 H, Absolute Lymphs (auto) 1.15, Nucleated RBC % 0, Differential Comment SCANNED, Diff Path Review September, Sodium 133 L, Potassium 4.2, Chloride 101, Carbon Dioxide 23.0, Anion Gap 8, BUN 42 H, Creatinine 2.32 H, Estim Creat Clear Calc 18.17, Est GFR (MDRD) Af Amer 26 L, Est GFR (MDRD) Non-Af 22 L, BUN/Creatinine Ratio 18.1, Glucose 149 H, Calcium 9.0, Total Bilirubin 1.20 H, AST 7 L, ALT 11 L, Alkaline Phosphatase 83, Total Protein 6.6, Albumin 2.8 L, Globulin 3.8, Albumin/Globulin Ratio 0.7 L 03/12/24 00:25: Lactic Acid 0.9 03/12/24 00:47: Urine Color Red, Urine Clarity Turbid, Urine pH 6.0, Ur Specific Rule 1.015, Urine Protein 500 H, Urine Glucose (UA) Normal, Urine Ketones Negative, Urine Occult Blood 250 H, Urine Nitrite Negative, Urine Bilirubin Negative, Urine Urobilinogen Normal, Ur Leukocyte Esterase 500 H, Urine RBC > 100 SEEN, Urine WBC 50-100 SEEN, Ur Squamous Epith Cells 0 SEEN, Urine Bacteria 3+, Urine Mucus 0 SEEN 03/12/24 01:25: Procalcitonin 4.09 H Micro: Microbiology 03/12/24 01:22 Mucosa - Nose SARS-CoV-2, Influenza & RSV (PCR) - Final Imaging [facility] Imaging Services [address] [place] [address] Abdomen/Pelvis without Cont MR#: [id number] Acct: [id number] Name: GAYLE CHO Rep #: [id number] : 1950 F 73 From: Aletha Titus MD PCP: Dr. Gema Laura MD Status: ADM IN Study: Abdomen/Pelvis without Cont Date of Exam: 03/12/24 Exam# [id number] Ordering Dr: Steve Castanon DO EXAM: CT Abdomen And Pelvis W/O Contrast Injection FEVER X 2 DAYS,WEAKNESS,DECREASED APPETITE,FELL YESTERDAY,PT HAD LITHOTRIPSY 03-05-24 AND HAS RT URETERAL STENT IN PLACE,ELEVATED WBC HX:DM,HTN,CKD,KS,SKIN CANCER HISTORY: flank pain TECHNIQUE: Routine protocol CT abdomen and pelvis. IV Contrast: None.. Oral contrast: None. RADIATION DOSAGE (If Supplied By Facility): CTDIvol = ( 8.93 ) mGy, DLP = ( 394.84 ) mGycm Individualized dose optimization techniques were used for this CT. COMPARISON: CT abdomen and pelvis 02/13/2024. LIMITATIONS: None. FINDINGS: LOWER CHEST: Included lung bases are clear. LIVER: Grossly unremarkable. GALLBLADDER AND BILIARY TREE: Grossly unremarkable. PANCREAS: Grossly unremarkable. SPLEEN: Grossly unremarkable. ADRENAL GLANDS: Grossly unremarkable. KIDNEYS AND URETERS: Right ureteral stent in place with proximal end in the renal pelvis upper pole, distal end in the bladder, is new compared to prior, with mild hydronephrosis and perinephric and periureteral stranding. Small focus of air in the renal collecting system is likely due to procedure. Multiple calculi in right kidney. There is a 4 mm calculus in the renal pelvis immediately adjacent to the stent. Small hyperattenuating rounded structure likely hyperdense cyst in the right kidney, unchanged, no follow-up needed. No hydronephrosis on the left. PERITONEUM: No free air. No free fluid. BOWEL: No bowel obstruction. APPENDIX: Visualized and unremarkable. No evidence of acute appendicitis. VESSELS: Abdominal aorta is normal caliber. Extensive arterial calcifications. RETROPERITONEUM: Several prominent lymph nodes periaortic/aortocaval especially at the level of the right kidney increased compared to prior May BE reactive. REPRODUCTIVE ORGANS: Grossly unremarkable URINARY BLADDER: Mildly distended. Air in the bladder presumably related to recent procedure. ABDOMINAL WALL: Unremarkable. BONES: No acute abnormalities. Degenerative changes in the lumbar spine CT/Abdomen/Pelvis without Cont IMPRESSION: Interval placement of right ureteral stent with mild right hydronephrosis. Calculus in the proximal ureter adjacent to the stent. Air in the renal collecting system and bladder likely related to recent procedure. Cannot exclude superimposed infection. Retroperitoneal adenopathy increased likely reactive. Electronically Signed: Aletha Titus MD at 3:29 EDT , CC: Dr. Gema Laura MD; DO Mona Hernandez [employer] Teacher: Signed [facility] Imaging Services [address] [place] [id number] Chest PA and Lateral MR#: [id number] Acct: [id number] Name: GAYLE CHO Rep #: [id number] : 1950 F 73 From: Aletha Titus MD PCP: Dr. Gema Laura MD Status: ADM IN Study: Chest PA and Lateral Date of Exam: 03/12/24 Exam# [id number] Ordering Dr: Steve Castanon DO INDICATION: fever EXAMINATION/TECHNIQUE: X-RAY - XR Chest 2 Views COMPARISON: Prior study dated: 08/12/2021 FINDINGS: LINES/DEVICES: None. LUNGS: No consolidation. No pneumothorax. MEDIASTINUM: Aorta is atherosclerotic. CARDIAC SILHOUETTE: Not enlarged. BONES AND SOFT TISSUES: No acute abnormalities. RAD/Chest PA and Lateral IMPRESSION: No evidence of active intrathoracic disease. Electronically Signed: Aletha Titus MD at 3:30 EDT , Assessment & Plan Assessment/Plan (1) Sepsis: QUALIFIERS: Acute renal failure type: unspecified Sepsis acute organ dysfunction status: with acute organ dysfunction Sepsis type: sepsis due to unspecified organism Severe sepsis acute organ dysfunction type: acute renal failure Severe sepsis shock status: without septic shock Qualified Code(s): A41.9 - Sepsis, unspecified organism; R65.20 - Severe sepsis without septic shock; N17.9 - Acute kidney failure, unspecified (2) Acute UTI: (3) Right distal ureteral calculus: (4) History of ureter stent: (5) EDITH (acute kidney injury): (6) Generalized weakness: (7) Fatigue: QUALIFIERS: Fatigue type: unspecified Qualified Code(s): R53.83 - Other fatigue (8) Tobacco abuse: PLAN: Plan 1. Severe leukocytosis of 18K present on admission with positive left shift of 1.1% immature granulocytes and elevated procalcitonin level of 4.09 ng/mL consistent with suspected Sepsis with confirmatory urinalysis positive for acute cystitis; with microscopic hematuria and CT evidence of Right hydronephrosis - Admit to ICU for treatment under the sepsis protocol. Continue empiric IV begun in the ER and add IV Levaquin to double cover gram-negative's for this patient who recently underwent urologic procedure. Give Tylenol as needed for [id number] (level 1-5/10) pain or fever. Give morphine IV as needed for severe (level 6-10/10) pain. Finally, the ER physician is contacting Dr. Patrick of the urology service see this patient first thing in a.m. on rounds for further recommendations with help appreciated in advance. 2. EDITH; in the setting of stage III CKD with sharply elevated serum creatinine of 2.32 mg/dL and BUN of 42 mg/dL present on admission (up from her baseline serum creatinine of 1.38 mg/dL and BUN of 18 mg/dL) arising from #1 - Aggressively volume resuscitate and avoid potentially nephrotoxic agents. Recheck renal indices daily to follow trend. 3. Very recent history of multiple Right renal calculi; s/p ureteral stent placement and thulium laser based lithotripsy by Dr. Zamora of urology one week ago complicating #1 & #2 - Noted. 4. Severe Fatigue, Generalized Weakness and Malaise with low-grade fever compounding #1 - #3 - We will consult PT/OT and case management see this patient after she is medically after she has been medically stabilized. 5. History of tobacco abuse adding to the disease burden of #1 - #4 - Tobacco cessation will be strongly encouraged with nicotine patch offered to control cravings. 6. Essential hypertension - Hold scheduled antihypertensives until infection outlined #1 has been neutralized. 7. Hyperlipidemia - Patient not currently on pharmacological treatment at this time. 8. Hypothyroidism - Resume oral Synthroid on patient is cleared for oral intake after procedure. 9. Overweight; with BMI of 29.8 this admission - Weight loss will be recommended. Check TSH. 10. DC; non compliant with CPAP - Noted. 11. DM-2; of unknown control - Keep NPO for now until urologic procedure completed. FSBS every 6 hours plus lowest intensity sliding scale insulin. Check hemoglobin A1c to objectively assess quality of diabetic control. 12. CAD; s/p stents (2011 & 2012) - Noted. 13. History of atrial fibrillation - Noted. 14. History of syncope - Noted. 15. History of COVID-19 pneumonia - Noted. 16. History of skin cancer - Noted. 17. IBS - Stable. 18. RLS - Noted. 19. OA; with widespread somatic dysfunction involving spine and pelvis - Stable. Give Tylenol as needed. 20. DVT prophylaxis - SCD's only with impending urologic procedure. Total time: Approximately (but not less than) 75 minutes. Sepsis Attestation Sepsis Alert: Yes Sepsis Attestation: Agree w/Sepsis Date exam was performed: 03/12/24 Time exam was performed: 03:52 Possible Source of Sepsis: Genitourinary Sepsis Organ Dysfunction Criteria Present: Creatinine > 2.0 mg/dL Fluid Resuscitation Fluid resuscitation indicated?: Yes Fluid Resuscitation ordered: 30 ml/kg fluid bolus ordered Amount of fluid ordered: 2 Sepsis Note Date exam was performed: 03/12/24 Time exam was performed: 06:32 Sepsis Attestation: Sepsis re-evaluation was performed Response to fluids: Fluid responsive hypotension Charges/Coding Visit Charges [facility]
--- NOTE | 2024-03-12 03:11 | EDS_ITS ---
HPI History of Present Illness Chief Complaint: General Illness Informant: patient and friend Narrative Narrative: Patient is a 73-year-old female with past medical history of hypertension hyperlipidemia and fibromyalgia. She states that roughly 1 week ago she had a stent placed secondary to multiple stones within her right kidney. She states she was sent home following the procedure and has been doing well but in the last 24 hours has developed increasing right sided pain with subjective fevers and chills and fatigue. With concern for developing infection she was brought in for evaluation [facility] Medical History Fatigue Syncope Fibromyalgia History of IBS Heartburn Shortness of breath on exertion History of pain when walking History of edema Wears dentures Wears glasses Cancer Anxiety Thyroid disease Restless legs Smoker CPAP (continuous positive airway pressure) dependence History of stress test History of echocardiogram Cardiology follow-up encounter Atrial fibrillation Myocardial infarct HLD (hyperlipidemia) Kidney stones CKD (chronic kidney disease) stage 3, GFR 30-59 ml/min Hypothyroidism Essential hypertension Presence of stent in coronary artery (~10/29/12) Atherosclerotic heart disease of [place] coronary artery without angina pectoris Osteoarthritis Heart murmur High cholesterol Arthritis Facet arthropathy, lumbar History of chest pain Home Medications ?Medication ?Instructions ?Recorded ?Last Taken ?Type levothyroxine 100 mcg tablet 100 mcg PO DAILY THYROID 12/28/20 03/05/24 History carvedilol 25 mg tablet 25 mg PO BID bp 08/12/21 03/05/24 History ondansetron 4 mg disintegrating 4 mg PO Q8H PRN PRN Nausea #10 tabs 02/03/24 Unk nown Rx tablet ergocalciferol (vitamin D2) 1,250 1,250 mcg PO Q7D 02/13/24 03/04/24 History mcg (50,000 unit) capsule aspirin 81 mg tablet,delayed 81 mg PO DAILY 02/26/24 02/26/24 History release (Adult Low Dose Aspirin) amlodipine 5 mg tablet 5 mg PO DAILY #30 tabs 03/14/24 Unknown Rx levofloxacin 500 mg tablet 500 mg PO .q48 #4 tabs 03/14/24 Unknown Rx Allergy/AdvReac Type Severity Reaction Status Date / Time Penicillins Allergy Severe Rash Verified 03/11/24 22:41 Anesthetics - Amide Type - Allergy Swelling Verified 03/11/24 22:41 Select A Anesthetics - Nubia Type- Allergy Swelling Verified 03/11/24 22:41 Parabens Iodinated Contrast Media Allergy Anaphylaxis Verified 03/11/24 22:41 Antihistamines - Alkylamine AdvReac Unknown heart Verified 03/11/24 22:41 racing enalapril AdvReac Unknown myalgias Verified 03/11/24 22:41 levothyroxine sodium (From AdvReac Unknown fatigue Verified 03/11/24 22:41 Synthroid) metoprolol (From Lopressor) AdvReac Unknown myalgias Verified 03/11/24 22:41 Family History Mother Heart disease Hypertension HLD (hyperlipidemia) Father Cancer Patient states spider cancer. Surgical History History of esophagogastroduodenoscopy (EGD) History of cardiac catheterization Hx of eye surgery History of cystoscopy History of tooth extraction History of D&C History of tonsillectomy Presence of coronary angioplasty implant and graft (~10/29/12) Social History household members: spouse Smoking Status: Heavy Smoker (>10/day) how long ago did patient quit smoking: Ongoing tobacco use since teenager, 1 ppd. alcohol intake: never substance use type: does not use caffeine: Yes Type: carbonated beverages, coffee and tea what type of physical activity do you participate in: none ROS ROS ED Constitutional Constitutional ED: Reports chills, fever(s) and subjective Eyes Eyes: Denies blurry vision or change in vision ENT ENT ED: Denies rhinorrhea or sore throat Cardiovascular Cardiovascular: Denies chest pain Respiratory/Chest Respiratory/Chest: Denies cough or dyspnea Gastrointestinal Gastrointestinal: Reports abdominal pain and nausea; Denies diarrhea or vomiting Genitourinary Genitourinary ED: Reports dysuria Musculoskeletal Musculoskeletal: Reports back pain and myalgias Integumentary Denies rash Neurologic Neurologic: Reports weakness; Denies headache(s) Hematologic/Lymphatic Hematologic/Lymphatic: Denies easy bleeding or easy bruising EXAM Physical Exam Const Vital Signs: 03/11/24 22:41 03/11/24 22:44 03/11/24 22:54 Temperature 100 F H 100 F H Temperature Source Oral Oral Pulse Rate 86 86 Respiratory Rate 18 18 Respiratory Effort Blood Pressure 176/60 H 176/60 H Blood Pressure Mean 98 98 Pulse Ox 100 94 97 Oxygen Delivery Method Room Air Room Air Room Air 03/11/24 22:54 03/11/24 23:44 03/12/24 00:32 Temperature 98.5 F Temperature Source Oral Pulse Rate 81 Respiratory Rate 19 H Respiratory Effort Normal Blood Pressure 146/58 H Blood Pressure Mean 87 Pulse Ox 97 93 Oxygen Delivery Method Room Air Room Air 03/12/24 00:39 03/12/24 00:44 03/12/24 02:00 Temperature 98.7 F Temperature Source Oral Pulse Rate 79 81 80 Respiratory Rate 19 H 18 20 H Respiratory Effort Blood Pressure 146/58 H 151/57 H 144/63 H Blood Pressure Mean 87 88 90 Pulse Ox 94 92 92 Oxygen Delivery Method Room Air Room Air 03/12/24 02:15 03/12/24 02:30 03/12/24 02:45 Temperature 98.5 F Temperature Source Oral Pulse Rate 80 81 76 Respiratory Rate 19 H 18 21 H Respiratory Effort Blood Pressure 158/55 H Blood Pressure Mean 81 Pulse Ox 92 96 90 Oxygen Delivery Method Room Air Positive well nourished and well developed General Appearance ED: well developed; Negative for pallor HEENT HEENT Narrative: Normocephalic atraumatic No airway edema or compromise No signs of infection noted in the posterior pharynx Eyes PERRL and EOMs intact bilaterally General Eye ED: Negative for scleral icterus Neck supple Neck Narrative: No nuchal rigidity or meningeal signs Chest Wall palpation of chest normal Resp normal respiratory effort and clear to auscultation bilaterally Cardio regular rate and regular rhythm Rate: other Other Details: Radial and carotid pulses are equal and symmetric GI non-distended and no masses GI Narrative: Abdomen is soft and nondistended with normal active bowel sounds. Patient does have mild pain with palpation along the right sided abdomen without voluntary guarding or rigidity. No pulsatile mass or fluid wave Auscultation: normoactive bowel sounds Palpation: soft Back/Spine Back/Spine Narrative: Positive right CVA pain noted Extremity normal to inspection Neuro oriented x3, CN's II-XII intact bilaterally and no sensory deficits noted Sensorium / Orientation: alert Motor Exam: strength 5/5 throughout Psych mental status grossly normal Skin no rashes or lesions noted Skin Narrative: Skin turgor is increased General Skin Exam: Negative for jaundice or pallor MDM MDM MDM Narrative Medical decision making narrative: Patient arrived to the ER with low-grade fever of 100. With her history of recent stent placement and kidney stones there is concern for secondary UTI/pyelonephritis from the procedure as well as acute on chronic kidney injury if the stones have not passed. Secondary to this basic lab work was obtained. Patient's white count is elevated to 18 she has a left shift at 15. Urine sample shows changes consistent with infection and CT scan of the abdomen and pelvis out contrast confirms persistent stones in the right ureter causing hydronephrosis. Based on her leukocytosis with left shift temperature of 100 and signs of infection she does qualify for sepsis. Secondary to this she was started on Rocephin as the urine appears to be the source of infection. She was given 2 L of fluid which is essentially her 30 mL/kg fluid bolus. After receiving Tylenol the temperature improved and her blood pressure remained stable. However as she will require IV antibiotics secondary to the systemic infection I discussed the case with the hospitalist. At this time he agrees with admission and would prefer patient be placed in the ICU secondary to her lab abnormalities and initial temperature. Therefore patient was admitted to his service to the ICU where she can continue IV antibiotics as well as monitoring to ensure that there is no worsening of her condition. The patient's urologist Dr. Zamora was notified of the patient being admitted to ICU and states he will follow patient in the hospital as a consult History & Record Review Discussion w/independent historian: Patient and Friend Lab Data Attestation: I reviewed the patient's lab results. Labs: Laboratory Results - last 24 hr 03/11/24 03/12/24 03/12/24 23:42 00:25 00:47 WBC 18.0 H RBC 4.08 L Hgb 12.5 Hct 37.0 MCV 90.7 MCH 30.6 MCHC 33.8 RDW Std Deviation 48.0 H RDW Coeff of [place] 14.6 Plt Count 201 MPV 9.4 Immature Gran % (Auto) 1.100 H Neut % (Auto) 82.5 H Lymph % (Auto) 6.4 L [place] % (Auto) 9.4 Eos % (Auto) 0.4 Baso % (Auto) 0.2 Absolute Neuts (auto) 14.9 H Absolute Lymphs (auto) 1.15 Nucleated RBC % 0 Differential Comment SCANNED Diff Path Review May foll Sodium 133 L Potassium 4.2 Chloride 101 Carbon Dioxide 23.0 Anion Gap 8 BUN 42 H Creatinine 2.32 H Estim Creat Clear Calc 18.17 Est GFR (MDRD) Af Amer 26 L Est GFR (MDRD) Non-Af 22 L BUN/Creatinine Ratio 18.1 Glucose 149 H Lactic Acid 0.9 Calcium 9.0 Total Bilirubin 1.20 H AST 7 L ALT 11 L Alkaline Phosphatase 83 Total Protein 6.6 Albumin 2.8 L Globulin 3.8 Albumin/Globulin Ratio 0.7 L Procalcitonin Urine Color Red Urine Clarity Turbid Urine pH 6.0 Ur Specific [place] 1.015 Urine Protein 500 H Urine Glucose (UA) Normal Urine Ketones Negative Urine Occult Blood 250 H Urine Nitrite Negative Urine Bilirubin Negative Urine Urobilinogen Normal Ur Leukocyte Esterase 500 H Urine RBC > 100 SEEN Urine WBC 50-100 SEEN Ur Squamous Epith Cells 0 SEEN Urine Bacteria 3+ Urine Mucus 0 SEEN 03/12/24 01:25 WBC RBC Hgb Hct MCV MCH MCHC RDW Std Deviation RDW Coeff of [place] Plt Count MPV Immature Gran % (Auto) Neut % (Auto) Lymph % (Auto) [place] % (Auto) Eos % (Auto) Baso % (Auto) Absolute Neuts (auto) Absolute Lymphs (auto) Nucleated RBC % Differential Comment Diff Path Review Sodium Potassium Chloride Carbon Dioxide Anion Gap BUN Creatinine Estim Creat Clear Calc Est GFR (MDRD) Af Amer Est GFR (MDRD) Non-Af BUN/Creatinine Ratio Glucose Lactic Acid Calcium Total Bilirubin AST ALT Alkaline Phosphatase Total Protein Albumin Globulin Albumin/Globulin Ratio Procalcitonin 4.09 H Urine Color Urine Clarity Urine pH Ur Specific [place] Urine Protein Urine Glucose (UA) Urine Ketones Urine Occult Blood Urine Nitrite Urine Bilirubin Urine Urobilinogen Ur Leukocyte Esterase Urine RBC Urine WBC Ur Squamous Epith Cells Urine Bacteria Urine Mucus Radiography Diagnostic Testing: Clinical Impression(s) from Imaging Studies Abdomen/Pelvis CT 03/12/24 01:07 IMPRESSION: Interval placement of right ureteral stent with mild right hydronephrosis. Calculus in the proximal ureter adjacent to the stent. Air in the renal collecting system and bladder likely related to recent procedure. Cannot exclude superimposed infection. Retroperitoneal adenopathy increased likely reactive. Electronically Signed: Aletha Titus MD at 3:29 EDT , Chest X-Ray 03/12/24 01:07 IMPRESSION: No evidence of active intrathoracic disease. Electronically Signed: Aletha Titus MD at 3:30 EDT , Chest x-ray as interpreted by the emergency medicine physician reveals no acute infiltrate pneumothorax or pleural effusion Management Discussion w/another healthcare provider: Hospitalist and [employer] Critical Care Time Critical Care Time: Yes Critical care time (excluding procedures): Discussing w/Patient &/or Family/Insurance Agents Supervisor, Discussing w/Consultants and - (Critical care time of 31 minutes) Discharge Plan Dx/Rx/DC Orders Clinical Impression: Acute kidney injury, Essential hypertension, Type 2 diabetes mellitus, Kidney stone, Acute pyelonephritis, Septicemia Disposition Disposition: [facility] Discharge Date/Time: 03/12/24 04:00
--- NOTE | 2024-03-12 03:53 | ED.RN ---
Report called to [facility] ICU nurse, questions/concerns answered
[2024-03-12 04:06] LABS: Lactic Acid 0.9 mmol/L (0.4-1.9)
[2024-03-12 04:48] LABS: Magnesium 1.9 mg/dL (1.6-2.6); Thyroid Stim Hormone (TSH) 0.445 uIU/mL (0.358-3.740)
[2024-03-12] MEDS: levoFLOXacin IV 750 MG/150 ML BAG 100 MG IV (07:56)
--- NOTE | 2024-03-12 08:31 | PN.HOSP_ITS ---
Reason for Visit Reason for Visit: Diagnoses Sepsis, unspecified organism (03/12/24) Acute kidney failure, unspecified (03/12/24) Calculus of ureter (03/12/24) Urinary tract infection, site not specified (03/12/24) Weakness (03/12/24) Other fatigue (03/12/24) Severe sepsis without septic shock (03/12/24) Tobacco use (03/12/24) Subjective Subjective Still with abdominal pain. Objective Data Objective Data Vital Signs: Vital Signs Temp Pulse Resp BP Pulse Ox O2 Del Method 36.1 C L 64 18 140/52 H 97 Room Air 03/12/24 04:23 03/12/24 07:00 03/12/24 07:00 03/12/24 07:00 03/12/24 07:32 03/12/24 07:32 Oxygen Delivery Method Room Air Weight: 70.3 kg Body Mass Index (BMI) 30.2 Intake & Output: Intake and Output for Last 24 Hours 03/10/24 03/11/24 03/12/24 23:59 23:59 23:59 Intake Total 2049 Balance 2049 Lab / Micro Data 03/12/24 09:42 03/12/24 09:42 Labs: Laboratory Results - last 24 hr 03/11/24 23:42: WBC 18.0 H, RBC 4.08 L, Hgb 12.5, Hct 37.0, MCV 90.7, MCH 30.6, MCHC 33.8, RDW Std Deviation 48.0 H, RDW Coeff of [place] 14.6, Plt Count 201, MPV 9.4, Immature Gran % (Auto) 1.100 H, Neut % (Auto) 82.5 H, Lymph % (Auto) 6.4 L, [place] % (Auto) 9.4, Eos % (Auto) 0.4, Baso % (Auto) 0.2, Absolute Neuts (auto) 14.9 H, Absolute Lymphs (auto) 1.15, Nucleated RBC % 0, Differential Comment SCANNED, Diff Path Review September, Sodium 133 L, Potassium 4.2, Chloride 101, Carbon Dioxide 23.0, Anion Gap 8, BUN 42 H, Creatinine 2.32 H, Estim Creat Clear Calc 18.17, Est GFR (MDRD) Af Amer 26 L, Est GFR (MDRD) Non-Af 22 L, BUN/Creatinine Ratio 18.1, Glucose 149 H, Calcium 9.0, Phosphorus 3.0, Magnesium 1.9, Total Bilirubin 1.20 H, AST 7 L, ALT 11 L, Alkaline Phosphatase 83, Total Protein 6.6, Albumin 2.8 L, Globulin 3.8, Albumin/Globulin Ratio 0.7 L, TSH 0.445 03/12/24 00:25: Lactic Acid 0.9 03/12/24 00:47: Urine Color Red, Urine Clarity Turbid, Urine pH 6.0, Ur Specific [place] 1.015, Urine Protein 500 H, Urine Glucose (UA) Normal, Urine Ketones Negative, Urine Occult Blood 250 H, Urine Nitrite Negative, Urine Bilirubin Negative, Urine Urobilinogen Normal, Ur Leukocyte Esterase 500 H, Urine RBC > 100 SEEN, Urine WBC 50-100 SEEN, Ur Squamous Epith Cells 0 SEEN, Urine Bacteria 3+, Urine Mucus 0 SEEN 03/12/24 01:25: Procalcitonin 4.09 H 03/12/24 03:28: Lactic Acid 0.9 Micro: Microbiology 03/12/24 01:22 Mucosa - Nose SARS-CoV-2, Influenza & RSV (PCR) - Final Radiography Diagnostic Testing: Radiology Impression Abdomen/Pelvis CT 03/12/24 01:07 IMPRESSION: Interval placement of right ureteral stent with mild right hydronephrosis. Calculus in the proximal ureter adjacent to the stent. Air in the renal collecting system and bladder likely related to recent procedure. Cannot exclude superimposed infection. Retroperitoneal adenopathy increased likely reactive. Electronically Signed: Aletha Titus MD at 3:29 EDT Reading Location ID and State: [facility] / [place] Tel , Service support , Chest X-Ray 03/12/24 01:07 IMPRESSION: No evidence of active intrathoracic disease. Electronically Signed: Aletha Titus MD at 3:30 EDT , Physical Exam Const alert and no apparent distress HEENT head/scalp atraumatic and moist oral mucous membranes Resp normal respiratory effort, no retractions, no use of accessory muscles and clear to auscultation bilaterally Cardio regular rate, regular rhythm, S1 normal heart sound and S2 normal heart sound GI normal to inspection, nondistended, normoactive bowel sounds, soft to palpation, non-tender and non-distended Extremity normal to inspection Neuro Sensorium / Orientation: awake and alert Assessment & Plan Assessment/Plan (1) Acute UTI: (2) Right distal ureteral calculus: (3) EDITH (acute kidney injury): PLAN: Plan UTI * CT showed interval placement of right ureteral stent with mild right hydronephrosis. Calculus in the proximal ureter adjacent to the stent. Air in the renal collecting system and bladder likely related to recent procedure. Cannot exclude superimposed infection. Retroperitoneal adenopathy increased likely reactive. * Abx with CTX. * Follow up cultures * qSOFA 0, therefore sepsis ruled out. 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 Hold losartan given EDITH * Hypothyroidism: Continue levothyroxine VTE prophylaxis: LMWH Charges/Coding Procedures Hospitalists Procedures: Other Procedure - See Report (Nonbillable rounding as patient was admitted after midnight.)
[2024-03-12] MEDS: Levothyroxine 100 MCG Tablet PO (09:29)
--- NOTE | 2024-03-12 09:51 | CON.PCM.UR_ITS ---
HPI Consult Data Date of Consult: 03/12/24 HPI Narrative Reason for Consultation: Possible infection HPI Narrative: GAYLE CHO, is a 73 F who presents to the hospital with pain a urine sample was done but she does have a stent in place with a thought that is possibly infected she did have an elevated white count she was admitted to the ICU for possible sepsis I saw her this morning this morning she did not look like in septic shock she looks fairly stable. She was post get the stent out on but with this possible infection went get this infection cleared before we remove the stent so we will have that the stent removed next week she can follow-up after discharge next week to have the stent removed she does have a lot of tiny fragments in the kidney after laser lithotripsy she had a huge stone that was lasered but I do not think any intervention at this point is necessary on my part post with the possible infection I would avoid any procedures. [facility] Medical History Fatigue Syncope Fibromyalgia History of IBS Heartburn Shortness of breath on exertion History of pain when walking History of edema Wears dentures Wears glasses Cancer Anxiety Thyroid disease Restless legs Smoker CPAP (continuous positive airway pressure) dependence History of stress test History of echocardiogram Cardiology follow-up encounter Atrial fibrillation Myocardial infarct HLD (hyperlipidemia) Kidney stones CKD (chronic kidney disease) stage 3, GFR 30-59 ml/min Hypothyroidism Essential hypertension Presence of stent in coronary artery (~10/29/12) Atherosclerotic heart disease of [place] coronary artery without angina pectoris Osteoarthritis Heart murmur High cholesterol Arthritis Facet arthropathy, lumbar History of chest pain Home Medications ?Medication ?Instructions ?Recorded ?Last Taken ?Type levothyroxine 100 mcg tablet 100 mcg PO DAILY THYROID 12/28/20 03/05/24 History carvedilol 25 mg tablet 25 mg PO BID bp 08/12/21 03/05/24 History ondansetron 4 mg disintegrating 4 mg PO Q8H PRN PRN Nausea #10 tabs 02/03/24 Unknown Rx tablet ergocalciferol (vitamin D2) 1,250 1,250 mcg PO Q7D 02/13/24 03/04/24 History mcg (50,000 unit) capsule losartan 100 mg tablet 50 mg PO BID 02/13/24 03/05/24 History aspirin 81 mg tablet,delayed 81 mg PO DAILY 02/26/24 02/26/24 History release (Adult Low Dose Aspirin) Allergy/AdvReac Type Severity Reaction Status Date / Time Penicillins Allergy Severe Rash Verified 03/11/24 22:41 Anesthetics - Amide Type - Allergy Swelling Verified 03/11/24 22:41 Select A Anesthetics - Nubia Type- Allergy Swelling Verified 03/11/24 22:41 Parabens Iodinated Contrast Media Allergy Anaphylaxis Verified 03/11/24 22:41 Antihistamines - Alkylamine AdvReac Unknown heart Verified 03/11/24 22:41 racing enalapril AdvReac Unknown myalgias Verified 03/11/24 22:41 levothyroxine sodium (From AdvReac Unknown fatigue Verified 03/11/24 22:41 Synthroid) metoprolol (From Lopressor) AdvReac Unknown myalgias Verified 03/11/24 22:41 Family History Mother Heart disease Hypertension HLD (hyperlipidemia) Father Cancer Patient states spider cancer. Surgical History History of esophagogastroduodenoscopy (EGD) History of cardiac catheterization Hx of eye surgery History of cystoscopy History of tooth extraction History of D&C History of tonsillectomy Presence of coronary angioplasty implant and graft (~10/29/12) Social History household members: spouse Smoking Status: Heavy Smoker (>10/day) how long ago did patient quit smoking: Ongoing tobacco use since teenager, 1/2 ppd. alcohol intake: never substance use type: does not use caffeine: Yes Type: carbonated beverages, coffee and tea what type of physical activity do you participate in: none Lab / Micro Data 03/11/24 23:42 03/11/24 23:42 Labs: Laboratory Results - last 24 hr 03/11/24 23:42: WBC 18.0 H, RBC 4.08 L, Hgb 12.5, Hct 37.0, MCV 90.7, MCH 30.6, MCHC 33.8, RDW Std Deviation 48.0 H, RDW Coeff of [place] 14.6, Plt Count 201, MPV 9.4, Immature Gran % (Auto) 1.100 H, Neut % (Auto) 82.5 H, Lymph % (Auto) 6.4 L, [place] % (Auto) 9.4, Eos % (Auto) 0.4, Baso % (Auto) 0.2, Absolute Neuts (auto) 14.9 H, Absolute Lymphs (auto) 1.15, Nucleated RBC % 0, Differential Comment SCANNED, Diff Path Review September, Sodium 133 L, Potassium 4.2, Chloride 101, Carbon Dioxide 23.0, Anion Gap 8, BUN 42 H, Creatinine 2.32 H, Estim Creat Clear Calc 18.17, Est GFR (MDRD) Af Amer 26 L, Est GFR (MDRD) Non-Af 22 L, BUN/Creatinine Ratio 18.1, Glucose 149 H, Calcium 9.0, Phosphorus 3.0, Magnesium 1.9, Total Bilirubin 1.20 H, AST 7 L, ALT 11 L, Alkaline Phosphatase 83, Total Protein 6.6, Albumin 2.8 L, Globulin 3.8, Albumin/Globulin Ratio 0.7 L, TSH 0.445 03/12/24 00:25: Lactic Acid 0.9 03/12/24 00:47: Urine Color Red, Urine Clarity Turbid, Urine pH 6.0, Ur Specific [place] 1.015, Urine Protein 500 H, Urine Glucose (UA) Normal, Urine Ketones Negative, Urine Occult Blood 250 H, Urine Nitrite Negative, Urine Bilirubin Negative, Urine Urobilinogen Normal, Ur Leukocyte Esterase 500 H, Urine RBC > 100 SEEN, Urine WBC 50-100 SEEN, Ur Squamous Epith Cells 0 SEEN, Urine Bacteria 3+, Urine Mucus 0 SEEN 03/12/24 01:25: Procalcitonin 4.09 H 03/12/24 03:28: Lactic Acid 0.9 Micro: Microbiology 03/12/24 01:22 Mucosa - Nose SARS-CoV-2, Influenza & RSV (PCR) - Final Imaging Radiology Impression Abdomen/Pelvis CT 03/12/24 01:07 IMPRESSION: Interval placement of right ureteral stent with mild right hydronephrosis. Calculus in the proximal ureter adjacent to the stent. Air in the renal collecting system and bladder likely related to recent procedure. Cannot exclude superimposed infection. Retroperitoneal adenopathy increased likely reactive. Electronically Signed: Aletha Titus MD at 3:29 EDT , Chest X-Ray 03/12/24 01:07 IMPRESSION: No evidence of active intrathoracic disease. Electronically Signed: Aletha Titus MD at 3:30 EDT ,
[2024-03-12 09:53] LABS: Absolute Lymphocyte Count 1.17 X10^3/uL (0.83-4.51); Absolute Neutrophil Count 13.2 X10^3/uL (2.0-7.7); Basophil# 0.04 X10^3/uL; Basophil% 0.3 % (0-1); Eosinophil# 0.01 X10^3/uL; Eosinophils% 0.1 % (0-5); Hematocrit 37.2 % (37-47); Hemoglobin 12.2 g/dL (12.0-15.0); Lymphocyte # 1.17 X10^3/ul (0.83-4.51); Lymphocyte % 7.6 % (19-41); Mean Corp Hgb Conc 32.8 g/dL (32-36); Mean Corpuscular Hgb 30.4 pg (27.0-32.0); Mean Corpuscular Volume 92.8 fL (81-99); Mean Platelet Vol. 9.2 fl (6.2-12.0); Monocyte# 0.86 X10^3/uL; Monocyte% 5.6 % (0-10); NRBC Flagged by Analyzer 0 % (0-5); Neutrophil # 13.16 X10^3/uL (2.7-7.7); Neutrophil % 85.5 % (47-70); Platelet Count 197 K/mm3 (150-450); RBC Distribution Width CV 14.6 % (11.6-14.6); RBC Distribution Width SD 50.6 fl (35.1-43.9); Red Blood Count 4.01 M/mm3 (4.2-5.4); White Blood Count 15.4 K/mm3 (4.4-11.0)
[2024-03-12] MEDS: 0.9% Saline Lock 10 ML Syringe IV (10:16)
[2024-03-12] MEDS: Ondansetron 4 MG/2 ML Vial IV (10:16)
[2024-03-12] MEDS: Carvedilol 25 MG Tablet PO ×2 (10:50→17:10)
[2024-03-12 10:54] LABS: Anion Gap 5 (5-15); BUN 40 mg/dL (7-18); BUN/Creat Ratio 18.8 RATIO (10-20); Calcium,Total 8.6 mg/dL (8.5-10.1); Chloride 105 mmol/L (98-107); Creatinine, Serum 2.13 mg/dL (0.55-1.02); EST Glomerular Filtration Rate 24 mL/min (>60); Est Glom Filt Rate - Afr Amer 29 mL/min (>60); Estimated Creatinine Clearance 19.97 ml/min; Glucose 116 mg/dL (74-106); Potassium 4.5 mmol/L (3.5-5.1); Sodium Level 134 mmol/L (136-145)
--- NOTE | 2024-03-12 12:27 | CASEMGMT ---
Addendum entered by Maribel Romero 03/12/24 14:03: Provided pt handouts on medic alert and meal services at this time. Original Note: RANDELL GUNN Assessment: Face to Face with pt for initial transition planning/care coordination assessment. RANDELL GUNN introduced self and role at [facility], pt voices understanding and consents to assessment. Pt is A&O x4 and answers all questions appropriately at this time. Pt sitting up in chair in no distress. Care providers, pharmacy, and demographics verified/updated. Admitting Dx: pyelonephritis and sepsis Strata Score: 3 PCP:Valentín Specialists:ceasar Zamora Pharmacy: [facility] Insurance: [employer], [employer] Prescription Benefit: yes LNOK: Josef Remy, son; Yandy Jonas, dtr Living Arrangements: Pt lives alone in a mobile home with 4 steps to enter with a rail. Pt reports prior to dealing with kidney stones, she was I in ADL and IADLs. Pt states since kidney stones, she has been eating soups and microwave meals and struggling at home. Transportation: Pt drives self and denies concerns with transportation. DME:walker, CPAP doesn't use, lift chair HHC/SNF: Pt has had HHC in the past but cannot recall name of agency. Pt has been to [facility]. Pt states no concerns with going home at time of dc. Pt worked with therapy today but states she wasn't impressed. Pt states she is not letting people push her any longer. Discussed her falling at home, pt states she fell one time yesterday. States she was using her walker but when she has to urinate it is urgent and she missed the threshhold in her home. Discussed HHC and pt states she is not sure if she wants it. Discussed benefits of SN and therapy. Pt agreeable to think about this. Discussed meal delivery services/MOW, pt is interested in this. Also discussed medic alert, pt is interested in information on this as well. Pt aware that RANDELL GUNN will bring information on the above and check back with her tomorrow to see if she would be agreeable to HHC in the home. Pt agreeable to plan. Pt states no further concerns/needs. CM to follow. Advised pt to ask CM if any further question/concerns/needs arise, voices understanding. Pt Goal: Home Plan: Home, provide medic alert and meal deliver service information, follow for HHC. Angelito MEJIAS CM
[2024-03-12 14:07] LABS: Pathologist Review Reviewed
[2024-03-12] MEDS: 0.9% Normal Saline (1000mL) 1,000 ML 150 ML IV (14:08)
[2024-03-12] MEDS: Acetaminophen 325 MG Tablet 650 MG PO (15:52)
[2024-03-13 03:30] VITALS: BP 172/61; PULSE 74; RESP 16; TEMP 36.8; O2SAT 98
[2024-03-13] MEDS: Levothyroxine 100 MCG Tablet PO (05:29)
[2024-03-13 07:03] LABS: Absolute Lymphocyte Count 1.51 X10^3/uL (0.83-4.51); Absolute Neutrophil Count 7.5 X10^3/uL (2.0-7.7); Basophil# 0.03 X10^3/uL; Basophil% 0.3 % (0-1); Eosinophil# 0.05 X10^3/uL; Eosinophils% 0.5 % (0-5); Hematocrit 31.8 % (37-47); Hemoglobin 10.2 g/dL (12.0-15.0); Lymphocyte # 1.51 X10^3/ul (0.83-4.51); Lymphocyte % 14.4 % (19-41); Mean Corp Hgb Conc 32.1 g/dL (32-36); Mean Corpuscular Hgb 29.8 pg (27.0-32.0); Mean Platelet Vol. 9.6 fl (6.2-12.0); Monocyte# 1.28 X10^3/uL; Monocyte% 12.2 % (0-10); NRBC Flagged by Analyzer 0 % (0-5); Neutrophil # 7.54 X10^3/uL (2.7-7.7); Neutrophil % 71.7 % (47-70); Platelet Count 179 K/mm3 (150-450); RBC Distribution Width CV 14.6 % (11.6-14.6); Red Blood Count 3.42 M/mm3 (4.2-5.4); White Blood Count 10.5 K/mm3 (4.4-11.0)
[2024-03-13 07:21] LABS: Anion Gap 6 (5-15); BUN 42 mg/dL (7-18); BUN/Creat Ratio 19.4 RATIO (10-20); Calcium,Total 8.8 mg/dL (8.5-10.1); Chloride 107 mmol/L (98-107); Creatinine, Serum 2.17 mg/dL (0.55-1.02); EST Glomerular Filtration Rate 23 mL/min (>60); Est Glom Filt Rate - Afr Amer 28 mL/min (>60); Glucose 93 mg/dL (74-106); Potassium 3.7 mmol/L (3.5-5.1); Sodium Level 135 mmol/L (136-145)
--- NOTE | 2024-03-13 07:37 | PN.URO_ITS ---
Subjective Subjective urine cx pending blood cx pending clinically stable WBC normal CR 2.17 follow up as outpatient to d/c stent next week. Objective Data Objective Data Vital Signs: Vital Signs Temp Pulse Resp BP Pulse Ox O2 Del Method 98.3 F 74 16 172/61 H 98 Room Air 03/13/24 03:30 03/13/24 03:30 03/13/24 03:30 03/13/24 03:30 03/13/24 03:30 03/13/24 03:30 Oxygen Delivery Method Room Air Weight: 70.3 kg Body Mass Index (BMI) 30.2 Intake & Output: Intake and Output for Last 24 Hours 03/11/24 03/12/24 03/13/24 23:59 23:59 23:59 Intake Total 3436.67 / 3436.67 300 / 300 Output Total 500 / 500 Balance 2936.67 / 2936.67 300 / 300 Lab / Micro Data 03/13/24 06:15 03/13/24 06:15 Labs: Laboratory Results - last 24 hr 03/11/24 23:42: Diff Path Review Reviewed 03/12/24 09:42: WBC 15.4 H, RBC 4.01 L, Hgb 12.2, Hct 37.2, MCV 92.8, MCH 30.4, MCHC 32.8, RDW Std Deviation 50.6 H, RDW Coeff of Souleymane 14.6, Plt Count 197, MPV 9.2, Immature Gran % (Auto) 0.900, Neut % (Auto) 85.5 H, Lymph % (Auto) 7.6 L, [place] % (Auto) 5.6, Eos % (Auto) 0.1, Baso % (Auto) 0.3, Absolute Neuts (auto) 13.2 H, Absolute Lymphs (auto) 1.17, Nucleated RBC % 0, Sodium 134 L, Potassium 4.5, Chloride 105, Carbon Dioxide 25.0, Anion Gap 5, BUN 40 H, Creatinine 2.13 H , Estim Creat Clear Calc 19.97, Est GFR (MDRD) Af Amer 29 L, Est GFR (MDRD) Non- Af 24 L, BUN/Creatinine Ratio 18.8, Glucose 116 H, Calcium 8.6 03/13/24 06:15: WBC 10.5, RBC 3.42 L, Hgb 10.2 L, Hct 31.8 L, MCV 93.0, MCH 29.8, MCHC 32.1, RDW Std Deviation 50.0 H, RDW Coeff of Souleymane 14.6, Plt Count 179, MPV 9.6, Immature Gran % (Auto) 0.900, Neut % (Auto) 71.7 H, Lymph % (Auto) 14.4 L, [place] % (Auto) 12.2 H, Eos % (Auto) 0.5, Baso % (Auto) 0.3, Absolute Neuts (auto) 7.5, Absolute Lymphs (auto) 1.51, Nucleated RBC % 0, Sodium 135 L, Potassium 3.7, Chloride 107, Carbon Dioxide 22.0, Anion Gap 6, BUN 42 H, C reatinine 2.17 H, Estim Creat Clear Calc 19.60, Est GFR (MDRD) Af Amer 28 L, Est GFR (MDRD) Non-Af 23 L, BUN/Creatinine Ratio 19.4, Glucose 93, Calcium 8.8 Micro: Microbiology 03/12/24 01:22 Mucosa - Nose SARS-CoV-2, Influenza & RSV (PCR) - Final
--- NOTE | 2024-03-13 08:10 | PN.HOSP_ITS ---
Reason for Visit Reason for Visit: Diagnoses Sepsis, unspecified organism (03/12/24) Acute kidney failure, unspecified (03/12/24) Calculus of ureter (03/12/24) Urinary tract infection, site not specified (03/12/24) Weakness (03/12/24) Other fatigue (03/12/24) Severe sepsis without septic shock (03/12/24) Tobacco use (03/12/24) Subjective Subjective Feeling better overall. Objective Data Objective Data Vital Signs: Vital Signs Temp Pulse Resp BP Pulse Ox O2 Del Method 36.8 C 74 16 172/61 H 98 Room Air 03/13/24 03:30 03/13/24 03:30 03/13/24 03:30 03/13/24 03:30 03/13/24 03:30 03/13/24 03:30 Oxygen Delivery Method Room Air Weight: 70.3 kg Body Mass Index (BMI) 30.2 Intake & Output: Intake and Output for Last 24 Hours 03/11/24 03/12/24 03/13/24 23:59 23:59 23:59 Intake Total 3436.67 / 3436.67 300 / 300 Output Total 500 / 500 Balance 2936.67 / 2936.67 300 / 300 Lab / Micro Data 03/13/24 06:15 03/13/24 06:15 Labs: Laboratory Results - last 24 hr 03/11/24 23:42: Diff Path Review Reviewed 03/12/24 09:42: WBC 15.4 H, RBC 4.01 L, Hgb 12.2, Hct 37.2, MCV 92.8, MCH 30.4, MCHC 32.8, RDW Std Deviation 50.6 H, RDW Coeff of Souleymane 14.6, Plt Count 197, MPV 9.2, Immature Gran % (Auto) 0.900, Neut % (Auto) 85.5 H, Lymph % (Auto) 7.6 L, [place] % (Auto) 5.6, Eos % (Auto) 0.1, Baso % (Auto) 0.3, Absolute Neuts (auto) 13.2 H, Absolute Lymphs (auto) 1.17, Nucleated RBC % 0, Sodium 134 L, Potassium 4.5, Chloride 105, Carbon Dioxide 25.0, Anion Gap 5, BUN 40 H, Creatinine 2.13 H , Estim Creat Clear Calc 19.97, Est GFR (MDRD) Af Amer 29 L, Est GFR (MDRD) Non- Af 24 L, BUN/Creatinine Ratio 18.8, Glucose 116 H, Calcium 8.6 03/13/24 06:15: WBC 10.5, RBC 3.42 L, Hgb 10.2 L, Hct 31.8 L, MCV 93.0, MCH 29.8, MCHC 32.1, RDW Std Deviation 50.0 H, RDW Coeff of Souleymane 14.6, Plt Count 179, MPV 9.6, Immature Gran % (Auto) 0.900, Neut % (Auto) 71.7 H, Lymph % (Auto) 14.4 L, [place] % (Auto) 12.2 H, Eos % (Auto) 0.5, Baso % (Auto) 0.3, Absolute Neuts (auto) 7.5, Absolute Lymphs (auto) 1.51, Nucleated RBC % 0, Sodium 135 L, Potassium 3.7, Chloride 107, Carbon Dioxide 22.0, Anion Gap 6, BUN 42 H, C reatinine 2.17 H, Estim Creat Clear Calc 19.60, Est GFR (MDRD) Af Amer 28 L, Est GFR (MDRD) Non-Af 23 L, BUN/Creatinine Ratio 19.4, Glucose 93, Calcium 8.8 Micro: Microbiology 03/12/24 01:22 Mucosa - Nose SARS-CoV-2, Influenza & RSV (PCR) - Final Physical Exam Const alert and no apparent distress HEENT head/scalp atraumatic and moist oral mucous membranes Resp normal respiratory effort, no retractions, no use of accessory muscles and clear to auscultation bilaterally Cardio regular rate, regular rhythm, S1 normal heart sound and S2 normal heart sound GI normal to inspection, nondistended, normoactive bowel sounds, soft to palpation, non-tender and non-distended Extremity normal to inspection Assessment & Plan Assessment/Plan (1) Acute UTI: (2) Right distal ureteral calculus: (3) EDITH (acute kidney injury): PLAN: Plan UTI * CT showed interval placement of right ureteral stent with mild right hydronephrosis. Calculus in the proximal ureter adjacent to the stent. Air in the renal collecting system and bladder likely related to recent procedure. Cannot exclude superimposed infection. Retroperitoneal adenopathy increased likely reactive. * Abx with CTX. * Follow up cultures. Thus far showing GNR lactose casework specialist. * qSOFA 0, therefore sepsis ruled out. * Seen by , plan to remove stent sometime next week. 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 Hold losartan given EDITH * Hypothyroidism: Continue levothyroxine VTE prophylaxis: LMWH Charges/Coding Visit Charges Inpatient E&M: 77842 Subs Hosp L2
[2024-03-13 09:09] VITALS: BP 145/94; PULSE 73; RESP 18; TEMP 36.8; O2SAT 95
[2024-03-13] MEDS: Carvedilol 25 MG Tablet PO ×2 (09:13→21:30)
[2024-03-13] MEDS: Aspirin E.C. 81 MG Tablet PO (09:14)
[2024-03-13 09:29] VITALS: O2SAT 94
--- NOTE | 2024-03-13 14:27 | CASEMGMT ---
Addendum entered by Jenn Akers 03/13/24 15:11: [facility] accepted, notify [facility] when pt is DC'd home. Pt notified of acceptance. Original Note: RANDELL GUNN into pt room to follow up on DC plan. Pt states would like [facility] services. RANDELL GUNN asked [facility] [employer] for list of local [facility] agencies covered by pt insurance. [employer] provided print out to RANDELL GUNN, RANDELL GUNN delivered to pt. Pt requested [facility] for C agency of choice. Order placed, referral sent.
[2024-03-13 14:28] VITALS: BP 171/69; PULSE 61; RESP 16; TEMP 36.8; O2SAT 99
[2024-03-13] MEDS: Acetaminophen 325 MG Tablet 650 MG PO (14:31)
--- NOTE | 2024-03-13 15:30 | CHAPLAIN ---
Type of Pastoral Visit _x__ Initial Visit ___ Follow-up Visit ___ On-call Visit ___ General Patient Visit ___ Spiritual Assessment ___ Family Conference ___ Bereavement ___ Rapid Response ___ Code Blue ___ Other (describe below) Pastoral Care Referral From _x__ Patient ___ Family ___ Nurse ___ Physician ___ Contract Project Manager ___ Electrolysis Investigator ___ Other (describe below) Sacrament/Intervention _x__ Active listening ___ Anointing ___ Islam ___ Bereavement ___ Communion _x__ [place] exploration ___ _x__ Life review _x__ Prayer ___ Reconciliation ___ Sacrament of Sick _x__ Supportive presence ___ Wedding ___ Other (describe below) Pastoral Comments patient is welcoming and talks about her life challenges and how her [place] keep her going somehow; pt states that she believes in prayer; pt gives some life review; pt has children that can help her and they are local; pt goes to the [employer] for support spiritually; pt gives her hope as a better day is coming for those who believe; prayer is welcomed
[2024-03-13 21:18] VITALS: BP 202/82; PULSE 66; RESP 15; TEMP 37.2; O2SAT 68
[2024-03-13] MEDS: Ceftriaxone 1 GM/50 ML BAG IV (23:33)
[2024-03-14 04:00] VITALS: BP 172/59; PULSE 65; RESP 15; TEMP 37.2; O2SAT 98
[2024-03-14] MEDS: Levothyroxine 100 MCG Tablet PO (04:19)
[2024-03-14 05:24] VITALS: BMI 30.4
[2024-03-14 06:08] LABS: Anion Gap 6 (5-15); BUN 36 mg/dL (7-18); BUN/Creat Ratio 19.6 RATIO (10-20); Calcium,Total 8.8 mg/dL (8.5-10.1); Chloride 107 mmol/L (98-107); Creatinine, Serum 1.84 mg/dL (0.55-1.02); EST Glomerular Filtration Rate 28 mL/min (>60); Est Glom Filt Rate - Afr Amer 34 mL/min (>60); Estimated Creatinine Clearance 23.16 ml/min; Glucose 92 mg/dL (74-106); Potassium 3.8 mmol/L (3.5-5.1); Sodium Level 135 mmol/L (136-145)
--- NOTE | 2024-03-14 08:02 | PCM.PN.HOSP ---
Reason for Visit Reason for Visit: Diagnoses Sepsis, unspecified organism (03/12/24) Acute kidney failure, unspecified (03/12/24) Calculus of ureter (03/12/24) Urinary tract infection, site not specified (03/12/24) Weakness (03/12/24) Other fatigue (03/12/24) Severe sepsis without septic shock (03/12/24) Tobacco use (03/12/24) Subjective Subjective Feeling well. Ready to go home. Objective Data Objective Data Vital Signs: Vital Signs Temp Pulse Resp BP Pulse Ox O2 Del Method 37.2 C 65 15 172/59 H 98 Room Air 03/14/24 04:00 03/14/24 04:00 03/14/24 04:00 03/14/24 04:00 03/14/24 04:00 03/14/24 04:00 Oxygen Delivery Method Room Air Weight: 70.6 kg Body Mass Index (BMI) 30.4 Intake & Output: Intake and Output for Last 24 Hours 03/12/24 03/13/24 03/14/24 23:59 23:59 23:59 Intake Total 3436.67 / 3436.67 300 / 300 50 / 50 Output Total 500 / 500 Balance 2936.67 / 2936.67 300 / 300 50 / 50 Lab / Micro Data 03/13/24 06:15 03/14/24 04:47 Labs: Laboratory Results - last 24 hr 03/14/24 04:47: Sodium 135 L, Potassium 3.8, Chloride 107, Carbon Dioxide 22.0, Anion Gap 6, BUN 36 H, Creatinine 1.84 H, Estim Creat Clear Calc 23.16, Est GFR (MDRD) Af Amer 34 L, Est GFR (MDRD) Non-Af 28 L, BUN/Creatinine Ratio 19.6, Glucose 92, Calcium 8.8 Micro: Microbiology 03/12/24 03:28 Blood Culture (Wb) - Anticubital Left Blood Culture - Preliminary No growth in 48 hours. 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 non-toxic. HEENT head/scalp atraumatic and moist oral mucous membranes Assessment & Plan Assessment/Plan (1) Acute UTI: (2) Right distal ureteral calculus: (3) EDITH (acute kidney injury): PLAN: Plan UTI CT showed interval placement of right ureteral stent with mild right hydronephrosis. Calculus in the proximal ureter adjacent to the stent. Air in the renal collecting system and bladder likely related to recent procedure. Cannot exclude superimposed infection. Retroperitoneal adenopathy increased likely reactive. UCx growing out garcia-sensitive E. coli. Will discharge with EOD dosing of levofloxacin. qSOFA 0, therefore sepsis ruled out. Seen by , plan to remove stent sometime next week. EDITH IVF monitor Chronic conditions: obesity class I: complicates care and recovery HTN: Resume carvedilol. Hold losartan given EDITH. Uncontrolled, will add amlodipine. Hypothyroidism: Continue levothyroxine VTE prophylaxis: LMWH
[2024-03-14 08:39] VITALS: BP 162/63; PULSE 65; RESP 18; TEMP 36.2; O2SAT 98
[2024-03-14] MEDS: Carvedilol 25 MG Tablet PO (08:49)
[2024-03-14] MEDS: amLODIPine 5 MG Tablet PO (08:49)
[2024-03-14] MEDS: Aspirin E.C. 81 MG Tablet PO (08:50)
[2024-03-14 09:12] VITALS: O2SAT 95
--- NOTE | 2024-03-14 10:42 | DS.PCM_ITS ---
Providers Date of Admission: 03/12/24 Primary Care Physician: Dr. Gema Laura MD Consultations 03/12/24 03:17 Consult: Urology Routine Consulting Provider: Nirmal Zamora Reason for Consult: Pyelonephritis with Sepsis after recent ureteral stent for renal stone. EMERGENT Consult: No MD Notified: Yes Date Notified: 03/12/24 Time Notified: 03:17 Method of Notification: ED Physician Initiated Reason For Visit: PYELONEPRHRITIS & SEPSIS Diagnosis Discharge Diagnosis (1) Acute UTI: Status: Acute Code(s): N39.0 - Urinary tract infection, site not specified (2) Right distal ureteral calculus: Status: Acute Code(s): N20.1 - Calculus of ureter (3) EDITH (acute kidney injury): Status: Acute Code(s): N17.9 - Acute kidney failure, unspecified Plan UTI * CT showed interval placement of right ureteral stent with mild right hydronephrosis. Calculus in the proximal ureter adjacent to the stent. Air in the renal collecting system and bladder likely related to recent procedure. Cannot exclude superimposed infection. Retroperitoneal adenopathy increased likely reactive. * UCx growing out garcia-sensitive E. coli. Will discharge with EOD dosing of levofloxacin. * qSOFA 0, therefore sepsis ruled out. * Seen by , plan to remove stent sometime next week. 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 Hold losartan given EDITH. Uncontrolled, will add amlodipine. * Hypothyroidism: Continue levothyroxine VTE prophylaxis: LMWH Medications at Discharge Home Medications levothyroxine 100 mcg tablet 100 mcg PO DAILY THYROID 12/28/20 carvedilol 25 mg tablet 25 mg PO BID bp 08/12/21 ondansetron 4 mg disintegrating tablet 4 mg PO Q8H PRN PRN Nausea #10 tabs 02/03/24 ergocalciferol (vitamin D2) 1,250 mcg (50,000 unit) capsule 1,250 mcg PO Q7D 02/13/24 aspirin 81 mg tablet,delayed release (Adult Low Dose Aspirin) 81 mg PO DAILY 02/26/24 amlodipine 5 mg tablet 5 mg PO DAILY #30 tabs 03/14/24 levofloxacin 500 mg tablet 500 mg PO .q48 #4 tabs 03/14/24 Hospital Course Operations None Procedures None Summary of Care Provided Minutes Spent on Discharge: 32 Hospital Course: Patient presents with fever and weakness. Patient was found to have urinary tract infection. She did have a CAT scan that showed calculus in the proximal ureter adjacent to the stent. Patient was seen by urology who initial plan was for have the stent removed but was deferring that outpatient given the underlying infection. Patient was started on antibiotics with ceftriaxone. Culture came back showing pansensitive E. coli. Patient has a known allergy to penicillin so patient will be discharged with every other day dosing of levofloxacin. Patient will follow-up with urology to have her ureteral stent removed Weight / BMI Weight Weight: 70.6 kg Body Mass Index (BMI) 30.4 ABG / Lab / Microbiology Data 03/13/24 06:15 03/14/24 04:47 Laboratory: Laboratory Results - last 24 hr 03/14/24 04:47: Sodium 135 L, Potassium 3.8, Chloride 107, Carbon Dioxide 22.0, Anion Gap 6, BUN 36 H, Creatinine 1.84 H, Estim Creat Clear Calc 23.16, Est GFR (MDRD) Af Amer 34 L, Est GFR (MDRD) Non-Af 28 L, BUN/Creatinine Ratio 19.6, Glucose 92, Calcium 8.8 Microbiology: Microbiology 03/12/24 00:47 Urine, Clean Catch Urine Culture - Final Escherichia coli 03/12/24 03:28 Blood Culture (Wb) - Anticubital Left Blood Culture - Preliminary No growth in 48 hours. 03/12/24 01:22 Mucosa - Nose SARS-CoV-2, Influenza & RSV (PCR) - Final D/C Instructions Discharge Diet: No restrictions Meaningful Use Info Meaningful Use Meaningful Use Diagnoses (Choose all that apply): None applicable Ischemic Stroke Statin Dosing Therapy Reference: STATIN DOSE THERAPY REFERENCE: * Patients > 75 years receive moderate or high dose statin therapy. * Patients 75 years or YOUNGER should receive HIGH intensity statin dose unless contraindicated. You will be required to document reason for non-treatment if statin daily dose does not meet guidelines. HIGH DOSE STATIN THERAPY DAILY Atorvastatin > than or = to 40 mg Rosuvastatin > than or = to 20 mg Amlodipine + Atorvastatin > than or = to 2.5/40 mg Ezetimibe + Simvastatin 10/80 mg Simvastatin 80mg Discharge Plan Admission Admit Date/Time: 03/12/24 03:10 Primary Reason for Your Visit: Urinary tract infection Attending Provider: Brandan Logan Primary Care Provider: Gema Laura Consulting Providers: Donnell Savage; Nirmal Zamora Instructions Additional Instructions / Restrictions: He presented with a urinary tract infection. You have improved with antibiotics and please continue with antibiotics upon discharge. The dosing of the antibiotics will be every other day based on your kidney function. Your kidney function has chronically been abnormal but it was acutely worse while you were here. Since it is improved. But because of your kidney function being abnormal, I am recommending you discontinue your losartan. Your blood pressure has been high with that being discontinued, so which is why about another medication (amlodipine) to help with your blood pressure. Please follow-up with Dr. Song?o you for your stent removal Discharge Orders/Prescriptions Prescriptions: New amlodipine 5 mg Tablet 5 mg PO DAILY Qty: 30 0RF levofloxacin 500 mg tablet 500 mg PO .q48 Qty: 4 0RF Continued levothyroxine 100 mcg tablet 100 mcg PO DAILY carvedilol 25 mg tablet 25 mg PO BID ergocalciferol (vitamin D2) 1,250 mcg (50,000 unit) capsule 1,250 mcg PO Q7D Patient Comments: pt reports taking inconsistently aspirin [Adult Low Dose Aspirin] 81 mg tablet,delayed release (DR/EC) 81 mg PO DAILY ondansetron 4 mg tablet,disintegrating 4 mg PO Q8H PRN PRN (Reason: Nausea) Qty: 10 0RF Discontinued losartan 100 mg tablet 50 mg PO BID Referrals / Follow Up: Gema Laura MD [Primary Care Provider] - Within 2 Weeks Nirmal Zamora MD [Med Staff - Active Staff] - Within 1 Week Disposition Disposition (needs filled in before D/C Order can be placed): Home, Self Care Charges/Coding Visit Charges Inpatient E&M: 71234 Disch Hosp >30min
--- NOTE | 2024-03-14 11:25 | CASEMGMT ---
RANDELL GUNN noted DC order, sent DC paperwork to [facility]. Called [facility] for SOC date, left voicemail to call back.
[2024-03-14 13:13] VITALS: PULSE 66; RESP 18; TEMP 36.2; O2SAT 98
--- NOTE | 2024-03-14 14:20 | CASEMGMT ---
RN CM called [facility] and spoke with patient portal representative, [facility] SOC 03/16/24. Pt notified, discharge plan updated.
== END 2024-03-14 14:40 | disposition home or self-care (01) | DRG 690 ==
LOC: ED 03-12 03:14 → ICU 03-12 03:20 → MS3 03-12 17:29
PROVIDERS: Admitting Provider Internal Medicine; Emergency Provider Emergency Medicine; PCP Internal Medicine
DX: N30.01 Acute cystitis with hematuria (principal); N17.9 Acute kidney failure, unspecified; N10 Acute pyelonephritis; E11.22 Type 2 diabetes mellitus with diabetic chronic kidney disease; E03.9 Hypothyroidism, unspecified; B96.20 Unspecified Escherichia coli [E. coli] as the cause of diseases classified elsewhere; N18.30 Chronic kidney disease, stage 3 unspecified; I12.9 Hypertensive chronic kidney disease with stage 1 through stage 4 chronic kidney disease, or unspecified chronic kidney disease; I48.91 Unspecified atrial fibrillation; E78.00 Pure hypercholesterolemia, unspecified; F17.210 Nicotine dependence, cigarettes, uncomplicated; I25.10 Atherosclerotic heart disease of native coronary artery without angina pectoris; I25.2 Old myocardial infarction; M47.9 Spondylosis, unspecified; M19.09 Primary osteoarthritis, other specified site; E66.811 Obesity, class 1; Z95.5 Presence of coronary angioplasty implant and graft; Z68.29 Body mass index [BMI] 29.0-29.9, adult; Z79.890 Hormone replacement therapy; Z85.828 Personal history of other malignant neoplasm of skin; Z79.899 Other long term (current) drug therapy; Z79.82 Long term (current) use of aspirin
CPT/HCPCS: 36415; 71046; 74176; 80048; 80053; 81001; 83605; 83735; 84100; 84145; 84443; 85025; 87040; 87077; 87086; 87088; 87186; 87631; 94760; 97162; 97166; 97530; 97535; 97802; 99285; 99406; J7030; A4216; J2405

== ENCOUNTER 2025-02-10 03:29 | Inpatient (IN) | payer MEDICARE, OTHER, SELFPAY ==
[2025-02-10] VITALS (20 sets, daily range): BP systolic 135–200; BP diastolic 54–87; PULSE 54–68; RESP 11–20; TEMP 36.2–37; O2SAT 94–100; BMI 30.4; BMI 29.2
--- NOTE | 2025-02-10 03:40 | EKG12_ITS ---
Test Reason : CP Blood Pressure : */* mmHG Vent. Rate : 61 BPM Atrial Rate : 61 BPM P-R Int : 160 ms QRS Dur : 94 ms QT Int : 458 ms P-R-T Axes : 40 8 103 degrees QTcB Int : 461 ms Normal sinus rhythm Left ventricular hypertrophy with repolarization abnormality ( Frederick product ) Abnormal ECG Confirmed by JENNIFER SWARTZ, EARL ([id number]), editor managing director GILBERTO PARDO ([id number]) on 02/11/2025 5:58:09 AM Referred By: ANTHONY Confirmed By: EARL RODRIGUEZ MD
--- NOTE | 2025-02-10 03:49 | RAD_ITS ---
PROCEDURE: CHEST 1 VIEW (PORTABLE) 02/10/2025 REASON FOR EXAM: CHEST PAIN TECHNIQUE: Frontal view of the chest. COMPARISON: March 12, 2024 FINDINGS: Heart size is upper normal. Central vascularity is normal. There is no focal infiltrate or consolidation. There is no pneumothorax or effusion. There is no acute bony abnormality. Aortic calcifications are noted. RAD/Chest 1 View (Portable) IMPRESSION: No acute process is identified in the chest. Reading Location: [facility]
[2025-02-10 03:56] LABS: Hematocrit 39.4 % (37-47); Hemoglobin 13.1 g/dL (12.0-15.0); Immature Granulocytes Count 0.050 X10^3/uL (0.0-0.0); Mean Corp Hgb Conc 33.2 g/dL (32-36); Mean Corpuscular Volume 87.2 fL (81-99); Mean Platelet Vol. 9.0 fl (6.2-12.0); NRBC Flagged by Analyzer 0 % (0-5); Platelet Count 273 K/mm3 (150-450); RBC Distribution Width CV 13.9 % (11.6-14.6); RBC Distribution Width SD 44.7 fl (35.1-43.9); Red Blood Count 4.52 M/mm3 (4.2-5.4); White Blood Count 11.5 K/mm3 (4.4-11.0)
[2025-02-10 04:16] LABS: Anion Gap 13 (5-15); BUN 32 mg/dL (4-19); BUN/Creat Ratio 17.4 RATIO (10-20); Calcium,Total 10.0 mg/dL (7.6-11.0); Carbon Dioxide 21.0 mmol/L (21.0-32.0); Chloride 103 mmol/L (98-108); Estimated Creatinine Clearance 22.82 ml/min (50-250); Glucose 192 mg/dL (70-99); Magnesium 2.4 mg/dL (1.5-2.2); Potassium 4.2 mmol/L (3.3-5.1); Troponin T High Sensitivity 10 ng/L (<=14)
--- OUTSIDE RECORDS SUMMARY | 2025-02-10 04:16 | XMS RPT_ITS | CCD ---
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 Jessica Clark Primary Care Provider Dr. Eric Whitten Emergency Provider [phone] Dr. Fran Boss Attending Provider [phone] Valentín SWARTZ, Jessica Primary Care Provider Valentín SWARTZ, Jessica Primary Care Provider Unavailable Primary Care Provider Unavailabl daily Clark MD, Jessica Primary Care Provider Valentín SWARTZ, Jessica Primary Care Provider Valentín SWARTZ, Jessica Primary Care Provider Valentín SWARTZ, Jessica Primary Care Provider Rosy RN, Delmar Unavailable Valentín SWARTZ, Jessica Primary Care Provider Valentín SWARTZ, Jessica Primary Care Provider Nirmal Zamora Attending Unavailable Ayeta, Jessica Primary Care Unavailable Nirmal Zamora Referring Unavailable Ganta, Jessica Primary Care Unavailable Tracee Morrison Attending Unavailable Ganta, Jessica Primary Care Unavailable Brandan Millan Attending Unavailable Valentín, Jessica Primary Care Unavailable Donnell Savage Admitting Unavailable Brandan Logan Attending Unavailable Donnell Savage Consulting Unavailable Nirmal Zamora Consulting Unavailable Donnell Savage Admitting Unavailable Donnell Savage Attending Unavailable Ganta, Jessica Primary Care Unavailable Nirmal Zamora Consulting Unavailable Donnell Savage Consulting Unavailable Brandan Logan Attending Unavailable Brandan Logan Consulting Unavailable Roberta Rascon PA-C Unavailable [phone] Older [email or web address] PHYSICAL THERAPIST, Angélica Unavailable Zoya De PA-C Unavailable GANTA, JESSICA Primary Care Unavailable OLDER, ANGÉLICA Referring Unavailable GANTA, JESSICA Primary Care Unavailable OLDER, ANGÉLICA Attending Unavailable GANTA, JESSICA Referring Unavailable GANTA, JESSICA Attending Unavailable OLDER, ANGÉLICA Referring Unavailable OLDER, ANGÉLICA Attending Unavailable GANTA, JESSICA Primary Care Unavailable GANTA, JESSICA Primary Care Unavailable GANTA, JESSICA Referring Unavailable GANTA, JESSICA Primary Care Unavailable OLDER, ANGÉLICA Referring Unavailable GANTA, JESSICA Primary Care Unavailable OLDER, ANGÉLICA Referring Unavailable Allergies Allergy Classification Reported Allergen(s) Allergy Type Date of Onset Reaction(s) Facility (20 sources) enalapril; Translations: [ENALAPRIL] Drug Allergy 08-09-19 08 Other: See Comments [facility] Repository (20 sources) metoprolol; Translations: [METOPROLOL TARTRATE] Drug Allergy 08-09-19 08 Other: See Comments [facility] Repository (20 sources) Penicillins; Translations: [PENICILLINS] Propensity to adverse reactions to drug (disorder) 08-09-19 08 Rash [facility] Repository (20 sources) thyroxine; Translations: [LEVOTHYROXINE SODIUM] Drug Allergy 08-09-19 08 Other: See Comments [facility] Repository (20 sources) ANTIHISTIMINE; Translations: [ANTIHISTIMINE] Propensity to adverse reactions to drug (disorder) 01-11-20 17 Intolerance [facility] (4 sources) Metoprolol Drug Allergy 08-13-19 22 myalgias [facility] (5 sources) Iodinated Contrast Media; Translations: [Iodinated Contrast Media] Allergy to substance 08-13-19 22 Anaphylaxis [facility] (5 sources) Antihistamines - Alkylamine; Translations: [Antihistamines - Alkylamine] Propensity to adverse reactions 08-13-19 22 heart racing [facility] (3 sources) ANESTETICS Allergy to substance 08-13-19 22 Swelling [facility] Work Phone: (20 sources) Erythromycin; Translations: [ERYTHROMYCIN] Drug Allergy 10-09-19 19 Vomiting [facility] (20 sources) Iodine; Translations: [IODINE] Drug Allergy 01-27-20 Swelling, Shortness of Breath [facility] (20 sources) Anesthetics - Amide Type - Select Amino Amides; Translations: [ANESTHETICS - AMIDE TYPE - SELECT AMINO AMIDES] Propensity to adverse reactions to drug 07-12-19 Mental Status Change [facility] (1 source) Anesthetics - [place] Type- Parabens Allergy to substance 01-05-20 Swelling [facility] (1 source) Metoprolol Drug Allergy 03-11-20 [facility] Repository (1 source) Anesthetics - Amide Type - Select A Drug allergy (disorder) 03-11-20 [facility] Repository (1 source) Anesthetics - [place] Type- Parabens Drug allergy (disorder) 03-11-20 [facility] Repository Medications Current Medications Medication Drug Class(es) Dates Sig (Normalized) Sig (Original) amLODIPine 5 mg oral tablet (20 sources) Dihydropyridine Calcium Channel Xochitl Start: 07-03-2022 End: 01-02-2024 take 1 tablet by mouth once daily amLODIPine (NORVASC) 2.5 mg tablet Take 1 tablet by mouth once daily. 30 tablet 1 07/03/2022 01/02/2024 Discontinued Start: 08-12-2021 End: 10-02-2024 take 1 tablet by mouth once daily amLODIPine (NORVASC) 5 mg tablet Take 1 tablet by mouth once daily. 90 tablet 3 10/03/2024 Active Comment on above: Take 1 tablet by alvino th once daily. aspirin 81 mg delayed release oral tablet (20 sources) Platelet Aggregation Inhibitor, Nonsteroidal Anti-inflammatory Drug Start: 2 take 1 tablet by mouth once daily aspirin, enteric coated (ASPIRIN, ENTERIC COATED) 81 mg EC tablet Take 1 tablet by mouth once daily. 0 03/18/2012 Active Comment on above: Take 1 tablet by alvino th once daily. carvedilol 25 mg oral tablet (20 sources) alpha-Adrenergic Xochitl, beta-Adrenergic Xochitl Start: End: take 1 tablet by mouth twice daily carvedilol (COREG) 25 mg tablet Take 1 tablet by mouth two times a day. 180 tablet 3 01/12/2025 Active Start: 02-22-2021 End: 03-02-2021 take 12.5 mg by mouth twice daily Carvedilol Discontinued 12.5 MG PO TWICE A DAY February 22, 2021 5:07pm March 02, 2021 11:17am Start: 09-13-2020 End: 11-30-2020 take 1 tablet by mouth twice daily carvedilol (COREG) 25 mg tablet Take 1 tablet by mouth twice daily. 60 tablet 2 09/13/2020 11/30/2020 Discontinued Comment on above: Take 1 tablet by alvino th twice daily. Take 1 tablet by alvino th twice daily Take 1 tablet by alvino th two times a day. cephalexin 500 mg oral capsule (7 sources) Cephalosporin Antibacterial Start: 4 End: 4 take 1 capsule by mouth twice daily cephALEXin (KEFLEX) 500 mg capsule Take 1 capsule by mouth two times a day for 7 days. 14 capsule 01/03/2024 01/10/2024 Active Start: 10-18-2021 End: 10-25-2021 take 1 capsule by mouth twice daily cephALEXin (KEFLEX) 500 mg capsule Take 1 capsule by mouth twice daily for 7 days. 14 capsule 0 10/18/2021 10/25/2021 Active Start: 08-03-2021 End: 08-08-2021 take 1 capsule by mouth three times daily cephALEXin (KEFLEX) 500 mg capsule Indications: Urinary frequency Take 1 capsule by mouth three times daily for 5 days. 15 capsule 08/03/2021 08/08/2021 Comment on above: Take 1 capsule by [facility] twice daily for 7 days. cholecalciferol 0.025 mg oral tablet (20 sources) Vitamin D Start: take 25 ug by mouth once daily Cholecalciferol (Vitamin D3) Active 25 MCG PO DAILY December 29, 2020 2:42pm Start: 02-04-2018 End: 12-28-2020 take 2000 [IU] by mouth once daily Cholecalciferol (Vitamin D3) Discontinued 2000 UNIT PO DAILY February 04, 2018 11:25am December 28, 2020 6:36pm End: 01-02-2024 take 1 tablet by mouth once daily cholecalciferol (VITAMIN D3) 1,000 unit tab tablet Take 1,000 Units by mouth once daily. 01/02/2024 Discontinued Comment on above: Take 1,000 Units by mouth once daily. CPAP (20 sources) CPAP Active CPAP doxycycline hyclate 100 mg oral tablet (3 sources) Tetracycline-class Drug Start: 03-31-2022 End: 04-10-2022 take 1 tablet by mouth twice daily doxycycline (VIBRA-TABS) 100 mg tablet Take 1 tablet by mouth twice daily for 10 days. 20 tablet 0 03/31/2022 04/10/2022 Active Comment on above: Take 1 tablet by alvino twice daily for 10 days. ergocalciferol 1.25 mg oral capsule (20 sources) Provitamin D2 Compound Start: 01-03-2024 take 1 tablet by mouth two times weekly, then take 1 tablet by mouth every week ergocalciferol 50,000 unit capsule (VITAMIN D2, DRISDOL) Take 1 tablet by mouth twice weekly [id number], then decrease to 1 tablet weekly. 16 capsule 3 01/03/2024 Active hydroCHLOROthiazide 12.5 mg oral capsule (9 sources) Thiazide Diuretic Start: 08-17-2021 End: 02-24-2022 take 1 capsule by mouth once daily hydroCHLOROthiazide 12.5 mg capsule Indications: Essential hypertension Take 1 capsule by mouth once daily. 30 capsule 12 08/17/2021 02/24/2022 Discontinued (Discontinued by Patient) Start: 08-12-2021 take 12.5 mg by mout h once daily Hydrochlorothiazide Active 12.5 MG PO DAILY August 12, 2021 3:47pm start today Comment on above: Take 1 capsule by [facility] once daily. Lactobacillus acidophilus (19 sources) Lactobacillus acidophilus (ACIDOPHILUS) cap Take 1 capsule by mouth once daily. 1 billion, Active levoFLOXacin 500 mg oral tablet (9 sources) Quinolone Antimicrobial Start: 08-18-19 End: 02-25-20 take 1 tablet by mouth once daily levoFLOXacin (LEVAQUIN) 500 mg tablet Indications: Urinary tract stones Take 1 tablet by mouth once daily. 10 tablet 0 08/17/2021 02/24/2022 Discontinued (Discontinued by Patient) Start: 08-12-2021 take 500 mg by mouth once daily Levofloxacin Active 500 MG PO DAILY August 12, 2021 3:50pm start 08/13/21 Comment on above: Take 1 tablet by alvino once daily. levothyroxine sodium 0.1 mg oral tablet (20 sources) l-Thyroxine Start: 01-07-20 End: 01-13-20 take 1 tablet by mouth once daily for thyroid dysfunction levothyroxine (LEVOXYL) 100 mcg tablet Indications: Hypothyroidism, unspecified type Take 1 tablet by mouth once daily. Take on empty stomach. For Thyroid. 90 tablet 3 01/12/2025 Active Start: 12-28-2020 End: 12-09-2021 take 1 tablet by mouth once daily for thyroid dysfunction levothyroxine (LEVOXYL) 100 mcg tablet Indications: Hypothyroidism, unspecified type Take 1 tablet by mouth once daily. Take on empty stomach. For Thyroid. 90 tablet 1 03/22/2021 12/09/2021 Discontinued Start: 08-24-2020 End: 11-30-2020 take 1 tablet by mouth once daily for thyroid dysfunction levothyroxine (LEVOXYL) 100 mcg tablet Indications: Hypothyroidism, unspecified type Take 1 tablet by mouth once daily. Take on empty stomach. For Thyroid. 90 tablet 08/24/2020 11/30/2020 Discontinued Start: 08-03-2016 End: 12-28-2020 take 75 ug by mouth once daily Levothyroxine Discontin ued 75 MCG PO DAILY August 03, 2016 1:34pm December 28, 2020 6:34pm Comment on above: Take 1 tablet by [facility] once daily. Take on empty stomach. For Thyroid. magnesium oxide 250 mg oral tablet (19 sources) take 1 tablet by mouth once daily Magnesium Oxide 250 mg magnesium tab Take 250 mg by mouth once daily. Active nitrofurantoin, macrocrystals 25 mg / nitrofurantoin, monohydrate 75 mg oral capsule (2 sources) Nitrofuran Antibacterial Start: End: take 1 capsule by mouth twice daily at mealtime nitrofurantoin monohydrate and macrocrystal (MACROBID) 100 mg capsule Take 1 capsule by mouth twice daily with meals for 10 days. 20 capsule 0 08/18/2021 08/28/2021 Active Comment on above: Take 1 capsule by [facility] twice daily with meals for 10 days. nitroglycerin 0.4 mg sublingual tablet (20 sources) Nitrate Vasodilator Start: Nitroglycerin Active 0.4 MG SL every 5 to 15 minutes December 28, 2020 6:35pm do not exceed 3 doses per episode Start: 04-16-2018 End: 03-24-2024 nitroglycerin sublingual (NI TROQUICK) 0.4 mg SL tablet Indications: Uncontrolled hypertension Dissolve 1 tablet under the tongue as needed. FOR CHEST PAIN. IF NO RELIEF CALL 911 25 tablet 6 03/24/2024 Active Comment on above: Dissolve 1 tablet un heena the tongue as needed. FOR CHEST PAIN. IF NO RELIEF CALL 911 sulfamethoxazole 800 mg / trimethoprim 160 mg oral tablet (1 source) Dihydrofolate Reductase Inhibitor Antibacterial, Sulfonamide Antimicrobial Start: take 1 tablet by mouth twice daily Sulfamethoxazo le-Trimethopri m (Bactrim Ds) 800-160 mg tablet Active 1 TABLET PO TWICE A DAY January 04, 2023 12:00am Completed/Discontinued Medications Medication Drug Class(es) Dates Sig (Normalized) Sig (Original) [id number] 200 actuat albuterol 0.09 mg/actuat metered dose inhaler (20 sources) beta2-Adrenergic Agonist Start: 12-28-2020 End: 12-29-2020 Albuterol Sulfate (Proair Hfa) 90 mcg/actuation HFA aerosol inhaler Discontinued 1 INH INHALATION ONCE December 28, 2020 6:35pm December 29, 2020 2:43pm Start: 02-04-2019 End: 01-02-2024 take 2 puff(s) by inhalation every four hours as needed albuterol HFA (PROAIR HFA) 90 mcg/actuation inhaler Indications: Bronchitis Inhale 2 Puffs as instructed every 4 hours as needed. 1 Each 3 02/25/2021 01/02/2024 Discontinued Comment on above: Inhale 2 Puffs as in structed every 4 hours as needed. ALPRAZolam 0.5 mg oral tablet (20 sources) Benzodiazepine Start: 09-02-19 End: 02-29-20 23 take 1 tablet by mouth at bedtime as needed ALPRAZolam (XANAX) 0.5 mg tablet Indications: Benzodiazepine dependence (HCC) Take 1 tablet by mouth at bedtime as needed for up to 180 days. 30 tablet 09/01/2022 02/28/2023 Start: 12-09-2021 End: 01-08-2022 take 1 tablet by mouth every 30 days at bedtime as needed ALPRAZolam (XANAX) 0.5 mg tablet Indications: Benzodiazepine dependence (HCC) Take 1 tablet by mouth at bedtime as needed for up to 30 days. 30 tablet 0 12/09/2021 01/08/2022 Active Start: 08-12-2021 take 0.5 mg by mouth once daily Alprazolam Active 0.5 MG PO DAILY August 12, 2021 4:46am Start: 12-29-2020 End: 08-12-2021 take 0.25 mg by mouth once daily Alprazolam Discontinued 0.25 MG PO DAILY 3 March 02, 2021 11:19am August 12, 2021 4:46am Start: 06-21-2020 End: 09-14-2020 ALPRAZolam (XANAX) 0.5 mg ta blet Indications: Anxiety attack Take 0.5 tablet three(3) times daily as needed. 15 tablet 06/21/2020 09/14/2020 Discontinued Start: 02-04-2018 End: 12-29-2020 take 0.5 mg by mouth twice daily Alprazolam Discontinued 0.5 MG PO TWICE A DAY February 04, 2018 11:25am December 29, 2020 2:44pm Comment on above: Take 1 tablet by alvino th at bedtime as needed for up to 30 days. Take 1 tablet by alvino th at bedtime as needed for up to 180 days. azithromycin 250 mg oral tablet (4 sources) Macrolide Antimicrobial Start: 08-04-19 End: 12-29-19 take 250 mg by mouth once daily Azithromycin Discontinued 250 MG PO DAILY August 03, 2016 2:12pm December 28, 2020 6:36pm start 08/04 dexamethasone 6 mg oral tablet (20 sources) Corticosteroid Start: 02-25-20 End: 08-13-19 take 6 mg by mouth once daily Dexamethasone Discontinued 6 MG PO DAILY 2 March 02, 2021 11:19am August 12, 2021 4:46am End: 01-02-2024 take 1 tablet by mouth twice daily at mealtime dexAMETHasone (DECADRON) 6 mg tablet Take 6 mg by mouth twice daily with meals. 01/02/2024 Discontinued Comment on above: Take 6 mg by mouth t wice daily with meals. dextromethorphan hydrobromide 2 mg/ml / guaiFENesin 20 mg/ml oral solution (20 sources) Uncompetitive O-ogbdej-U-aspartate Receptor Antagonist, Sigma-1 Agonist End: 01-02-20 take 5 mL by mouth every twelve hours Dextromethorphan-gu aiFENesin (TUSSIN DM) 10-100 mg/5 mL liquid Take 5 mL by mouth every 12 hours. 01/02/2024 Discontinued Comment on above: Take 5 mL by mouth e very 12 hours. losartan potassium 100 mg oral tablet (20 sources) Angiotensin 2 Receptor Xochitl Start: 01-02-20 End: 03-24-20 take 0.5 tablet by mouth twice daily losartan (COZAAR) 100 mg tablet Take 0.5 tablets by mouth two times a day. 180 tablet 3 01/02/2024 03/24/2024 Discontinued (Other) Start: 08-12-2021 End: 08-12-2021 take 25 mg by mouth twice daily Losartan Discontinued 25 MG PO TWICE A DAY August 12, 2021 4:47am August 12, 2021 3:41pm Start: 05-02-2021 End: 02-24-2022 take 1 tablet by mouth twice daily losartan (COZAAR) 25 mg tablet Take 1 tablet by mouth twice daily. 180 tablet 3 01/06/2022 02/24/2022 Discontinued Start: 03-02-2021 End: 01-02-2024 take 1 tablet by mouth twice daily losartan (COZAAR) 50 mg tablet Take 1 tablet by mouth twice daily 60 tablet 5 08/28/2022 02/28/2023 Discontinued Start: 12-29-2020 End: 03-02-2021 Losartan (Cozaar) 50 mg tabl et Discontinued 25 MG PO TWICE A DAY December 29, 2020 2:42pm March 02, 2021 11:18am Start: 08-24-2020 End: 11-30-2020 take 1.5 tablets by mouth once daily losartan (COZAAR) 50 mg tablet Indications: Essential hypertension Take 1.5 tablets by mouth once daily. 85 tablet 08/24/2020 11/30/2020 Discontinued Start: 08-03-2016 End: 12-29-2020 take 1 tablet by mouth once daily Losartan (Cozaar) 50 MG tablet Discontinued 50 MG PO DAILY August 03, 2016 1:34pm December 29, 2020 2:44pm Comment on above: Take 1 tablet by alvino th twice daily. Take 1 tablet by alvino th twice daily Take 1 tablet by alvino th two times a day. pravastatin sodium 40 mg oral tablet (20 sources) HMG-CoA Reductase Inhibitor Start: End: take 1 tablet by mouth once daily at bedtime pravastatin (PRAVACHOL) 40 mg tablet Indications: Hyperlipidemia, unspecified hyperlipidemia type Take 1 tablet by mouth daily at bedtime. 90 tablet 03/22/2021 12/09/2021 Discontinued Start: 12-29-2020 take 20 mg by mouth at bedtime Pravastatin Active 20 MG PO AT BEDTIME December 29, 2020 2:42pm Start: 03-30-2020 End: 02-25-2021 take 40 mg by mouth once daily Pravastatin Discontinue d 40 MG PO DAILY December 28, 2020 6:35pm December 29, 2020 2:44pm Start: 08-03-2016 End: 12-28-2020 take 40 mg by mouth at bedtime Pravastatin Discontinue d 40 MG PO AT BEDTIME August 03, 2016 1:34pm December 28, 2020 6:35pm Comment on above: Take 1 tablet by alvino th daily at bedtime. TAKE 1 TABLET BY ALVINO TH ONCE DAILY AT BEDTIME Problems Active Problems Problem Classification Problem Date Documented Da te Episodic/Chronic Abdominal pain (20 sources) Right lower quadrant pain; Translations: [Right lower quadrant pain] Onset: 08-10-2007 08-10-2007 Episodic Acute and unspecified renal failure (1 source) Acute kidney failure, unspecified; Translations: [Acute kidney failure, unspecified] Onset: 03-14-2024 Episodic Calculus of urinary tract (20 sources) Kidney stone; Translations: [Calculus of kidney] Onset: 03-14-2024 Episodic Chronic kidney disease (20 sources) Chronic kidney disease stage 3; Translations: [Stage 3 chronic kidney disease] Onset: 07-28-2021 07-28-2021 Chronic Chronic kidney disease (3 sources) Chronic kidney disease; Translations: [Hypertensive kidney disease with stage 3a chronic kidney disease (HCC)] Onset: 07-28-2021 Coronary atherosclerosis and other heart disease (20 sources) Atherosclerotic heart disease of [place] coronary artery without angina pectoris; Translations: [Coronary atherosclerosis] Onset: 02-20-2012 07-28-2021 Chronic Diabetes mellitus without complication (5 sources) Prediabetes; Translations: [Prediabetes] Onset: 01-12-2025 Episodic Disorders of lipid metabolism (20 sources) Hyperlipidemia; Translations: [Hyperlipidemia, unspecified] Onset: 02-20-2012 Chronic Essential hypertension (20 sources) Essential (primary) hypertension; Translations: [Malignant hypertension] Onset: 02-20-2012 Chronic Fever of unknown origin (1 source) Fever; Translations: [Fever, unspecified] Episodic Fluid and electrolyte disorders (1 source) Hyperkalemia; Translations: [Hyperkalemia] Episodic Genitourinary symptoms and ill-defined conditions (5 sources) Slick hematuria; Translations: [Gross hematuria] Onset: 01-12-2025 Episodic Hypertension with complications and secondary hypertension (20 sources) Hypertensive urgency ; Translations: [Hypertensive urgency] Onset: 04-27-2016 Resolved: 07-28-2021 07-28-2021 Chronic Immunizations and screening for infectious disease (1 source) Other specified abnormal immunological findings in serum; Translations: [Positive LARA (antinuclear antibody)] Onset: 02-09-2025 Episodic Inflammation; infection of eye (except that caused by tuberculosis or sexually transmitteddisease) (2 sources) Herpes zoster ophthalmicus; Translations: [Zoster ocular disease, unspecified] Episodic Malaise and fatigue (14 sources) Asthenia; Translations: [Weakness] Onset: 03-14-2024 Episodic Mood disorders (1 source) Depressive disorder; Translations: [Depression, unspecified depression type] Chronic Mycoses (1 source) Onychomycosis; Translations: [Tinea unguium] 08-04-2021 Episodic Nutritional deficiencies (5 sources) Vitamin D deficiency; Translations: [Vitamin D deficiency, unspecified] Onset: 01-12-2025 Chronic Other aftercare (2 sources) Patient encounter status; Translations: [Other half-way (current) drug therapy] Episodic Other aftercare (1 source) Other half-way (current) drug therapy; Translations: [Medication management] Onset: 01-23-2025 Episodic Other and ill-defined heart disease (1 source) Cardiomegaly; Translations: [Left ventricular hypertrophy] Onset: 02-09-2025 Chronic Other and ill-defined heart disease (1 source) Other ill-defined heart diseases; Translations: [Diastolic dysfunction] Onset: 02-09-2025 Chronic Other bone disease and musculoskeletal deformities (12 sources) Segmental and somatic dysfunction; Translations: [Segmental and somatic dysfunction of lumbar region] 02-04-2018 Episodic Other bone disease and musculoskeletal deformities (1 source) Subungual exostosis; Translations: [Other specified disorders of bone, unspecified site] 08-04-2021 Episodic Other connective tissue disease (2 sources) Muscle pain; Translations: [Myalgia, unspecified site] 01-12-2025 Episodic Other connective tissue disease (3 sources) Other symptoms and signs involving the musculoskeletal system; Translations: [Other musculoskeletal symptoms referable to limbs] Onset: 01-12-2025 01-12-2025 Episodic Other connective tissue disease (1 source) Myalgia, unspecified site; Translations: [Muscle aches] Onset: 01-12-2025 Episodic Other gastrointestinal disorders (4 sources) Irritable bowel syndrome; Translations: [Irritable bowel syndrome without diarrhea] 05-27-2013 Chronic Other hematologic conditions (1 source) ESR raised; Translations: [Elevated erythrocyte sedimentation rate] 01-21-2025 Episodic Other hematologic conditions (1 source) Elevated erythrocyte sedimentation rate; Translations: [Elevated sed rate] Onset: 01-23-2025 Episodic Other lower respiratory disease (4 sources) Hypoxemia; Translations: [Hypoxemia] 03-04-2021 Episodic Other lower respiratory disease (4 sources) Dyspnea; Translations: [Dyspnea, unspecified] 10-31-2013 Episodic Other lower respiratory disease (4 sources) Hypoxia; Translations: [Hypoxemia] 03-04-2021 Episodic Other lower respiratory disease (3 sources) Cough; Translations: [Acute cough] Episodic Other lower respiratory disease (1 source) Chronic cough; Translations: [Chronic cough] Episodic Other lower respiratory disease (3 sources) Cough; Translations: [Acute cough] 03-31-2022 Episodic Other nervous system disorders (1 source) Other chronic pain; Translations: [Chronic midline low back pain, unspecified whether sciatica present] Onset: 01-12-2025 Chronic Other non-traumatic joint disorders (5 sources) Hip pain; Translations: [Pain in unspecified hip] 09-13-2020 Episodic Other non-traumatic joint disorders (1 source) Multiple joint pain; Translations: [Pain in unspecified joint] 01-21-2025 Episodic Other non-traumatic joint disorders (1 source) Pain in unspecified joint; Translations: [Multiple joint pain] Onset: 02-09-2025 Episodic Other non-traumatic joint disorders (1 source) Pain in right hip; Translations: [Bilateral hip pain] Onset: 01-12-2025 Episodic Other non-traumatic joint disorders (1 source) Pain in left hip; Translations: [Bilateral hip pain] Onset: 01-12-2025 Episodic Other nutritional; endocrine; and metabolic disorders (4 sources) Adult failure to thrive syndrome; Translations: [Adult failure to thrive] 02-27-2021 Episodic Residual codes; unclassified (3 sources) Obstructive sleep apnea syndrome; Translations: [Obstructive sleep apnea (adult) (pediatric)] 01-02-2024 Chronic Residual codes; unclassified (1 source) Obstructive sleep apnea (adult) (pediatric); Translations: [DC (obstructive sleep apnea)] Onset: 01-12-2025 Chronic Residual codes; unclassified (4 sources) History of chest pain; Translations: [Personal history of other specified conditions] 12-28-2020 Episodic Residual codes; unclassified (4 sources) Tobacco user; Translations: [Tobacco use] 05-27-2013 Episodic Residual codes; unclassified (1 source) Tobacco use; Translations: [Tobacco use] Onset: 03-14-2024 Episodic Septicemia (except in labor) (2 sources) Sepsis, unspecified organism; Translations: [Severe sepsis without septic shock] Onset: 03-14-2024 Episodic Spondylosis; intervertebral disc disorders; other back problems (4 sources) Arthropathy of lumbar facet joint; Translations: [Spondylosis without myelopathy or radiculopathy, lumbar region] 02-04-2018 Chronic Spondylosis; intervertebral disc disorders; other back problems (3 sources) Chronic low back pain; Translations: [Chronic midline low back pain, unspecified whether sciatica present] 01-12-2025 Episodic Substance-related disorders (20 sources) Benzodiazepine dependence; Translations: [Sedative, hypnotic or anxiolytic dependence, uncomplicated] Onset: 01-02-2024 Chronic Thyroid disorders (20 sources) Hypothyroidism; Translations: [Hypothyroidism, unspecified] Onset: 02-20-2012 05-16-2021 Chronic Unclassified (1 source) Unknown / UNK(Unknown) Onset: 08-14-2017 Unclassified (1 source) Subacute cough; Translations: [Subacute cough] Onset: 01-12-2025 Unclassified (1 source) Chronic midline low back pain, unspecified whether sciatica present; Translations: [Chronic midline low back pain, unspecified whether sciatica present] Onset: 01-12-2025 Viral infection (8 sources) COVID-19; Translations: [Pneumonia due to COVID-19 virus] 02-22-2021 Episodic Past or Other Problems Problem Classification Problem Date Documented Da te Episodic/Chronic Administrative/social admission (20 sources) Counseling procedure with explicit context; Translations: [Tobacco abuse counseling] Onset: 02-04-2019 Resolved: 07-28-2021 07-28-2021 Episodic Chronic obstructive pulmonary disease and bronchiectasis (20 sources) Bronchitis; Translations: [Bronchitis, not specified as acute or chronic] Onset: 02-04-2019 Resolved: 07-28-2021 07-28-2021 Episodic Coronary atherosclerosis and other heart disease (4 sources) Stented coronary artery; Translations: [Presence of coronary angioplasty implant and graft] Onset: 10-19-2012 12-28-2020 Episodic Diabetes mellitus without complication (20 sources) Type 2 diabetes mellitus; Translations: [Type 2 diabetes mellitus without complications] Onset: 02-20-2012 Resolved: 11-06-2018 02-22-2021 Chronic Nonspecific chest pain (20 sources) Chest pain; Translations: [Chest pain, unspecified] Onset: 04-26-2016 05-17-2021 Episodic Nutritional deficiencies (2 sources) Iron deficiency; Translations: [Iron deficiency] Onset: 03-28-2024 03-24-2024 Episodic Other connective tissue disease (20 sources) Pain in left arm; Translations: [Pain in left arm] Onset: 04-27-2016 05-31-2021 Episodic Unclassified (20 sources) SUMMARY Onset: 04-27-2016 Resolved: 07-28-2021 07-28-2021 Unclassified (2 sources) Weakness of both lower extremities 01-12-2025 Urinary tract infections (13 sources) Acute urinary tract infection; Translations: [Urinary tract infection, site not specified] Onset: 03-14-2024 Episodic Results Test Name Value Interpretation Reference Range Facility CNOVon 02-09-2025 CNOV Office Visit (INT[facility] ) GAYLE CHO ([id number]) 1950 F Date Time Provider Department 02/09/25 11:40 AM ANGÉLICA MORATAYA [facility] During your visit today, we recorded the following information about you: Pulse Respiration Blood pressure Weight 78/minute 16/minute 158/66 67.6 kg Angélica Morataya APRN.CNP 02/09/2025 4:19 PM Signed CC: Patient presents with: Recheck: 4 week follow up HPI Gayle Cho is a 74 year old female who presents today for follow up on multiple complaints on diagnostic results. Recording using Openbravo software for draft documentation of the visit was discussed with the patient/authorized customer assistance representative; all questions welcomed and answered. Patient/authorized customer assistance representative agreed to proceed Lab Results Review: - Recent lab work showed elevated ESR and positive LARA. - CRP and rheumatoid factor were normal. - Thyroid levels are stable. - Hemoglobin A1c: 6.3. - eGFR: 21. - Potassium and calcium: Slightly elevated. Has had ongoing fatigue, muscle and joint aches. Hypothyroidism: - Diagnosed in mid-40s. - Gayle Cho is taking levothyroxine; adheres to taking on an empty stomach and waiting an hour before eating. Chronic Kidney Disease: - eGFR has decreased to 21. - History of kidney stones and sepsis last year. Did not follow up with urology and needs to schedule with them at [facility]. Has not scheduled with nephrology as ordered. - Gayle reports high potassium levels despite low dietary intake of bananas. - Prolapsed bladder causing urinary incontinence and incomplete emptying. - Experiences occasional burning sensation in the abdomen. - Inadequate water intake. - Last urology visit was over a year ago; received a card in the mail to schedule an appointment in April. Hypertension: - Gayle is taking amlodipine 5 mg daily and carvedilol BID. - Reports adverse reactions to beta blockers in the past along with all other medications as well. States the only medication to help effectively is xanax which has been denied in the past. Has been told the concerns of uncontrolled blood pressure and the effects of this on other organs including kidneys along with concerns of this increasing risk of heart attack and stroke along with smoking. - Reports history of irregular heartbeats, spastic arteries, and mitral valve prolapse. - Diagnosed with left ventricular hypertrophy and grade 1 diastolic dysfunction. - Has not scheduled with cardiology as ordered. Has had ongoing left sided chest pain she has previously reported she feels is related to gas and does not occur with exertion (see previous note) Denies dyspnea, wheezing, edema, palpitations, dizziness, fever, or chills. REVIEW OF SYSTEMS See HPI PAST MEDICAL HISTORY Diagnosis Date Bowel disease Calculus of kidney Dyslipidemia Fracture Generalized osteoarthrosis, unspecified site Hypertension Hypothyroidism 02/20/2012 Mitral valve disorders(424.0) Myalgia and myositis, unspecified Non-ST elevation myocardial infarction (NSTEMI), subendocardial infarction, initial episode of care ([facility]) 02/20/2012 Type II or unspecified type diabetes mellitus without mention of complication, not stated as uncontrolled Unspecified hypothyroidism PAST SURGICAL HISTORY Procedure Laterality Date DILATION AND CURETTAGE DXAND/THER NONOBSTETRIC Dilation AND curettage PRQ CARD STENT/ATH/ANGIO 2011 x 2 TONSILLECTOMY PRIMARY/SECONDARY Tonsillectomy ALLERGIES Iv Contrast [Iodine], Anesthetics - Amide Type - Select Amino Amides, Antihistimine, Enalapril, Erythromycin, Lopressor [Metoprolol Tartrate], Penicillins, and Synthroid [Levothyroxine Sodium] MEDICATIONS levothyroxine (LEVOXYL) 100 mcg tablet Take 1 tablet by mouth once daily. Take on empty stomach. For Thyroid. carvedilol (COREG) 25 mg tablet Take 1 tablet by mouth two times a day. amLODIPine (NORVASC) 5 mg tablet Take 1 tablet by mouth once daily. Magnesium Oxide 250 mg magnesium tab Take 250 mg by mouth once daily. Lactobacillus acidophilus (ACIDOPHILUS) cap Take 1 capsule by mouth once daily. 1 billion, amLODIPine (NORVASC) 5 mg tablet Take 1 tablet by mouth once daily. nitroglycerin sublingual (NITROQUICK) 0.4 mg SL tablet Dissolve 1 tablet under the tongue as needed. FOR CHEST PAIN. IF NO RELIEF CALL 911 ergocalciferol 50,000 unit capsule (VITAMIN D2, DRISDOL) Take 1 tablet by mouth twice weekly [id number], then decrease to 1 tablet weekly. CPAP aspirin, enteric coated (ASPIRIN, ENTERIC COATED) 81 mg EC tablet Take 1 tablet by mouth once daily. History reviewed. No pertinent family history. SOCIAL HISTORY[1] PHYSICAL EXAM BP 158/66 Pulse 78 Resp 16 Wt 67.6 kg (149 lb) SpO2 100% BMI 25.58 kg/m? General Appearance: well appearing, in no acute distress, alert Pysch: good eye contact, labile mood depen (more content not included)... Normal [facility] 02-02-2025 [facility] Telephone ([facility]) GAYLE CHO ([id number]) 1950 F Date Time Provider Department 02/02/25 ANGÉLICA MORATAYA [facility] During your visit today, we recorded the following information about you: Nati Paulson LPN 02/02/2025 12:43 PM Signed Pt is calling for lab results done 01/23 and also results of ECHO. Pt reports she was supposed to get a recheck in urine for uti sx. This was not done with labs. Pt reports she still has itching and burning. Please review and advise. Latest Ref Rng 01/23/2025 Albumin 3.9 - 4.9 g/dL 4.2 Calcium 8.5 - 10.2 mg/dL 10.3 (H) Phosphorus 2.7 - 4.8 mg/dL 3.9 Glucose 74 - 99 mg/dL 145 (H) BUN 7 - 21 mg/dL 32 (H) Creatinine 0.58 - 0.96 mg/dL 2.38 (H) Sodium 136 - 144 mmol/L 137 Potassium 3.7 - 5.1 mmol/L 5.2 (H) Chloride 98 - 107 mmol/L 106 CO2 22 - 30 mmol/L 22 Anion Gap 8 - 15 mmol/L 9 eGFR >=60 mL/min/1.73m? 21 (L) WBC 3.70 - 11.00 k/uL 10.28 RBC 3.90 - 5.20 m/uL 4.23 Hemoglobin 11.5 - 15.5 g/dL 12.4 Hematocrit 36.0 - 46.0 % 37.4 MCV 80.0 - 100.0 fL 88.4 MCH 26.0 - 34.0 pg 29.3 MCHC 30.5 - 36.0 g/dL 33.2 RDW-CV 11.5 - 15.0 % 14.2 Platelet Count 150 - 400 k/uL 208 MPV 9.0 - 12.7 fL 8.5 (L) Absolute nRBC <0.01 k/uL <0.01 Creatinine, Ur Random (UCRR) 20.0 - 300.0 mg/dL 71.3 Albumin, Urine Random mg/L 225.6 Albumin/Creat Ratio <30 mg/g 316 (H) LARA Negative Positive ! LARA Titer 1:160 LARA Pattern Nuclear homogeneous Hemoglobin A1C 4.3 - 5.6 % 6.3 (H) Estimated Average Glucose mg/dL 134 CRP <0.9 mg/dL 0.6 Vitamin B12 232 - 1,245 pg/mL 420 Vitamin D 25 Hydroxy 31.0 - 80.0 ng/mL 31.0 Rheumatoid Factor <16 IU/mL <10 Legend: (H) High (L) Low ! Abnormal MASSIMO Medina, Angélica, MARGO.OUTPATIENT PHYSICAL THERAPIST 02/05/2025 7:45 AM Signed I put in a previous result follow up, I wanted her to see a sequins stringer as her LARA was positive and could indicate an underlying autoimmune disorder. Multiple other things are off that I wanted to discuss in visit in 4 days. It will be difficult to discuss and understand in a telephone encounter.... Kidney function further decreased which is most likely causing her potassium and calcium to increase. I need her to see nephrology, do further labs, and we will possibly need to adjust her medications. This will be done in visit. Her echo indicates some enlargement in her left ventricle and toughening of her heart which is most likely from uncontrolled hypertension. With the stage 4 kidney disease and her symptoms she will need to see cardiology as well as I cannot put her on a diuretic to help with this. Thank you Angélica Morataya APRN.Fanny Mao RN 02/05/2025 8:49 AM Signed Pt called and is notified of providers results and instructions. Pt voices understanding. Pt declined scheduling appointments at this time, she states she will wait until after her appointment with Angélica Morataya ADOLESCENT COUNSELOR. Fanny Vargas RN Allergies As of Date: 02/02/2025 Noted Allergy Reaction IV CONTRAST (IODINE) 01/27/2020 7 - Swelling 12 - Shortness of Breath Comments: Swelling in lips ANESTHETICS - AMIDE TYPE - SELECT*07/12/2019 1 - Mental Status Change ANTIHISTIMINE 01/10/2017 5 - Intolerance Comments: Heart racing/palpitations ENALAPRIL 08/09/2007 14 - Other: See Comments Comments: Muscle myalgias ERYTHROMYCIN 10/08/2018 11 - Vomiting LOPRESSOR (METOPROLOL TARTRATE) 08/09/2007 14 - Other: See Comments Comments: Muscle myalgias PENICILLINS 08/09/2007 2 - Rash SYNTHROID (LEVOTHYROXINE SODIUM) 08/09/2007 14 - Other: See Comments Comments: Fatigue and jittery Date Reviewed: 01/12/2025 Reviewed by: Angélica Morataya APRN.OUTPATIENT PHYSICAL THERAPIST - Fully Assessed Reason for Visit: Results, Lab [1201] echo results [Other] Primary Visit Diagnosis:CKD (chronic kidney disease) stage 4, GFR 15-29 ml/min (HCC) [N18.4] Other Visit Diagnoses:Uncontrolled hypertension [I10] Diastolic dysfunction [I51.89] Order(s):CONSULT TO NEPHROLOGY [4326] Order #: [id number]: 1 FUTURE CONSULT TO CARDIOLOGY [9001] Order #: [id number]: 1 FUTURE Prescriptions as of 02/05/2025 - levothyroxine (LEVOXYL) 100 mcg tablet Take 1 tablet by mouth once daily. Take on empty stomach. For Thyroid. - carvedilol (COREG) 25 mg tablet Take 1 tablet by mouth two times a day. - amLODIPine (NORVASC) 5 mg tablet Take 1 tablet by mouth once daily. - Magnesium Oxide 250 mg magnesium tab Take 250 mg by mouth once daily. - Lactobacillus acidophilus (ACIDOPHILUS) cap Take 1 capsule by mouth once daily. 1 billion, - amLODIPine (NORVASC) 5 mg tablet Take 1 tablet by mouth once daily. - nitroglycerin sublingual (NITROQUICK) 0.4 mg SL tablet Dissolve 1 tablet under the tongue as needed. FOR CHEST PAIN. IF NO RELIEF CALL 911 - ergocalciferol 50,000 unit capsule (VITAMIN D2, DRISDOL) Take 1 tablet by mouth twice weekly [id number], then decrease to 1 tablet weekly. - CPAP - aspirin, (more content not included)... Normal [facility] 25(OH)D3 SerPl-ncon 2024 25-hydroxyvitamin D3 [Mass/Vol] 31.0 ng/mL Normal 31.0-80.0 [facility] Comment on above: Order Comment: Speci men Type: BLOOD SPECIMENOrdering Facility: [facility] Address: [address] [place] [address] Performed By: #### 1 989-3 ####[facility] LABIA [id number] [place] [address] [place] ALBUMIN/CREATININE RATIO, UR INEon 01-23-2025 Albumin DL <= 20 mg/L (U) [Mass/Vol] 225.6 mg/L Normal [facility] Comment on above: Order Comment: Speci men Type: URINE SPECIMENOrdering Facility: [facility] Address: [address] [place] [address] Performed By: #### U ACR ####[facility] LABCLIA [id number] [place] [id number] [place] Albumin/Creatinine (U) [Mass ratio] 316 mg/g High <30 [facility] Comment on above: Order Comment: Speci men Type: URINE SPECIMENOrdering Facility: [facility] Address: [address] [place] [address] Result Comment: Adul t Male and Female Nephrotic Criteria: <30 mg/g is considered normal to mildly increased 30-300 mg/g is considered moderately increased >300 mg/g is considered severely increased KDIGO. (2013). KDIGO 2012 Clinical Practice Guideline for the Evaluation and Management of Chronic Kidney Disease. Official Journal of the International Society of Nephrology, 3(1), 1-150. Performed By: #### U ACR ####[facility] LABCLIA [id number] [place] [address] [place] Creatinine (U) [Mass/Vol] 71.3 mg/dL Normal 20.0-300.0 [facility] Comment on above: Order Comment: Speci men Type: URINE SPECIMENOrdering Facility: [facility] Address: [address] [place] [address] Performed By: #### U ACR ####[facility] LABIA [id number] [place] [address] [place] LARA BY IFA SCREENon 01-24-20 25 Nuclear Ab pattern (S) [Interp] Nuclear homogeneous Normal [facility] Comment on above: Order Comment: Speci men Type: BLOOD SPECIMENOrdering Facility: [facility] Address: [address] [place] [address] Performed By: #### A NAIFS ####[facility] LABIA [id number] [place] [address] [place] Nuclear Ab Ql (S) Positive Abnormal Negative [facility] Comment on above: Order Comment: Speci men Type: BLOOD SPECIMENOrdering Facility: [facility] Address: [address] [place] [address] Result Comment: Anti -nuclear antibody test is used as an aid in diagnosis of systemic autoimmune diseases. Where positive and clinically warranted, follow-up using disease-specific testing is recommended. Low positive titers are not uncommon with advanced age, certain chronic infections, and malignancies among others. Test methodology: Indirect fluorescence immunoassay (IFA) using HEp-2 cells. 1:160 Performed By: #### A NAIFS ####[facility] LABCLIA [id number] [place] [address] [place] CBC panel Auto (Bld)on 01-23 Erythrocyte distribution width (RBC) [Ratio] 14.2 % Normal 11.5-15.0 [facility] Comment on above: Order Comment: Speci men Type: BLOOD SPECIMENOrdering Facility: [facility] Address: [address] [place] [address] Performed By: #### 5 8410-2 ####[facility] [id number] [address] [place] Hematocrit (Bld) [Volume fraction] 37.4 % Normal 36.0-46.0 [facility] Comment on above: Order Comment: Speci men Type: BLOOD SPECIMENOrdering Facility: [facility] Address: [address] [place] [address] Performed By: #### 5 8410-2 ####[facility] [id number] [address] [place] Hemoglobin (Bld) [Mass/Vol] 12.4 g/dL Normal 11.5-15.5 [facility] Comment on above: Order Comment: Speci men Type: BLOOD SPECIMENOrdering Facility: [facility] Address: [address] [place] [address] Performed By: #### 5 8410-2 ####[facility] WEST[facility]CL[facility] [id number] [place] [address] [place] MCH (RBC) [Entitic mass] 29.3 pg Normal 26.0-34.0 [facility] Comment on above: Order Comment: Speci men Type: BLOOD SPECIMENOrdering Facility: [facility] Address: [address] [place] [address] Performed By: #### 5 8410-2 ####[facility] MILLWNCLIA [id number] [place] [address] [place] MCHC (RBC) [Mass/Vol] 33.2 g/dL Normal 30.5-36.0 [facility] Comment on above: Order Comment: Speci men Type: BLOOD SPECIMENOrdering Facility: [facility] Address: [address] [place] [address] Performed By: #### 5 8410-2 ####[facility] WESTNCL[facility] [id number] [place] [address] [place] MCV (RBC) [Entitic vol] 88.4 fL Normal 80.0-100.0 [facility] Comment on above: Order Comment: Speci men Type: BLOOD SPECIMENOrdering Facility: [facility] Address: [address] [place] [address] Performed By: #### 5 8410-2 ####[facility] [id number] [place] [address] [place] Nucleated RBC (Bld) [#/Vol] 10*3/uL Normal <0.01 [facility] Comment on above: Order Comment: Speci men Type: BLOOD SPECIMENOrdering Facility: [facility] Address: [address] [place] [address] Performed By: #### 5 8410-2 ####[facility]ENTER[facility] [id number] [address] [place] Platelet mean volume (Bld) [Entitic vol] 8.5 fL Low 9.0-12.7 [facility] Comment on above: Order Comment: Speci men Type: BLOOD SPECIMENOrdering Facility: [facility] Address: [address] [place] [address] Performed By: #### 5 8410-2 ####[facility] [id number] [place] [address] [place] Platelets (Bld) [#/Vol] 208 10*3/uL Normal 150-400 [facility] Comment on above: Order Comment: Speci men Type: BLOOD SPECIMENOrdering Facility: [facility] Address: [address] [place] [address] Performed By: #### 5 8410-2 ####[facility] [id number] [place] [address] [place] RBC (Bld) [#/Vol] 4.23 10*6/uL Normal 3.90-5.20 [facility] Comment on above: Order Comment: Speci men Type: BLOOD SPECIMENOrdering Facility: [facility] Address: [address] [place] [address] Performed By: #### 5 8410-2 ####[facility] [id number] [place] [address] [place] WBC (Bld) [#/Vol] 10.28 10*3/uL Normal 3.70-11.00 [facility] Comment on above: Order Comment: Speci men Type: BLOOD SPECIMENOrdering Facility: [facility] Address: [address] [place] [address] Performed By: #### 5 8410-2 ####[facility]ENTERROSHNIA [id number] [place] [address] [place] CRP SerPl-mCncon 01-23-2025 CRP [Mass/Vol] 0.6 mg/dL Normal <0.9 [facility] Comment on above: Order Comment: Speci men Type: BLOOD SPECIMENOrdering Facility: [facility] Address: [address] [place] [address] Performed By: #### 2 132-9, 1988-5, 64522-7 ####[facility] LABCLIA [id number] [address] [address] [place] ECHOon 01-23-2025 Echocardiography Echocardiography Rep ort: Transthoracic Echo [facility] Date of service: 01/23/2025 8:41:05 AM WORKER Ordering physician: ANGÉLICA MORATAYA Exam indication: Abnormal ECG Technologist: Shital Redmond [facility] Interpreting physician: Gage Flores MD PATIENT: Name: MRS. GAYLE CHO : 1950 Age: 74 years Gender: F History of hypertension, diabetes mellitus, dyslipidemia and coronary artery disease. Previous cardiovascular interventions: PCI Primary rhythm: sinus. Height: 162.60 cm BSA: 1.75 m Weight: 68.04 kg BMI: 25.7 kg/m Heart rate 68 bpm Blood pressure 197/74 mmHg Color Doppler was utilized to interrogate the cardiac valves assessed and spectral Doppler was utilized to determine the flow velocities and pressure gradients reported in this exam. MEASUREMENTS: Value Indexed Normal Max aortic dimension 2.8 cm Ao < 3.8 Left atrial volume 43 ml (biplane A-L) 24 ml/m Krista <= 34 LV ID (diastole) 4.1 cm (2D) 2.36 cm/m LV ID (systole) 2.6 cm (2D) 1.49 cm/m IVS, leaflet tips 1.3 cm (2D) Posterior wall thickness 1.3 cm (2D) Left ventricular mass 193 g (2D) 110 g/m LV stroke volume 44 ml (2D biplane) LV end diastolic volume 76 ml (2D biplane) 43.4 ml/m 29<=EDVi<62 LV end systolic volume 32 ml (2D biplane) 18.1 ml/m Ejection Fraction 58 % (2D biplane) EF > 54 FINDINGS: LEFT VENTRICLE The left ventricle is normal in size. There is mild concentric left ventricular hypertrophy. Left ventricular systolic function is normal. Grade I left ventricular diastolic dysfunction. Mitral annular lateral E/e': 13.1. Mitral annular septal E/e': 15.7. Wall Motion: All scored segments are normal. RIGHT VENTRICLE The right ventricle is normal in size. Right ventricular systolic function is normal. RV systolic tissue Doppler velocity is 10.0 cm/s. Tricuspid annular displacement is 1.6 cm. Estimated right atrial pressure is 3 mmHg (although IVC not seen). LEFT ATRIUM The left atrial cavity is normal in size. RIGHT ATRIUM The right atrial cavity is normal in size (RA area = 8.4 cm ). Inferior Vena Cava: The inferior vena cava appears normal measuring 1.00 cm. MITRAL VALVE The mitral valve leaflets are structurally normal. There is trace mitral valve regurgitation. The pressure half time is 49 msec. The peak mitral E/A ratio is 0.88. The average mitral E/e' ratio is 14.4. The mitral flow deceleration time is 168 msec. TRICUSPID VALVE The tricuspid valve leaflets are structurally normal. There is no tricuspid valve regurgitation. AORTIC VALVE The aortic valve cusps are structurally normal. There is no aortic valve regurgitation. Tricuspid aortic valve. The peak gradient is 7 mmHg (peak velocity = 130.2 cm/s). PULMONIC VALVE The pulmonic valve cusps are structurally normal. There is trace pulmonic valve regurgitation. AORTA The visualized aorta is normal in size. Measurements - Mid ascending aorta 2.8 cm. INTERATRIAL SEPTUM There is no evidence of intracardiac shunting as detected by Doppler. PERICARDIUM There is no pericardial effusion. There is an epicardial fat pad. CONCLUSIONS: - Exam indication: Abnormal ECG - The left ventricle is normal in size. There is mild concentric left ventricular hypertrophy. Left ventricular systolic function is normal. EF = 58 5% (2D biplane) Grade I left ventricular diastolic dysfunction. - The right ventricle is normal in size. Right ventricular systolic function is normal. - There are no significant valvular abnormalities. - Exam was compared with the prior echocardiographic exam performed on 10/10/2016 (Stress). There is no significant change. * * * Final * * * [facility] : [id number] Normal [facility] HbA1c (Bld)on 01-23-2025 Average glucose Estimated from glycated hemoglobin (Bld) [Mass/Vol] 134 mg/dL Normal [facility] Comment on above: Order Comment: Speci men Type: BLOOD SPECIMENOrdering Facility: [facility] Address: [address] [place] [address] Result Comment: eAG: (Estimated average glucose) is a calculated value from HgbA1c and is customer assistance representative of the average blood glucose level in the last 2-3 month period. Performed By: #### 5 5454-3 ####[facility] LABCLIA [id number] [place] [address] [place] HbA1c (Bld) [Mass fraction] 6.3 % High 4.3-5.6 [facility] Comment on above: Order Comment: Speci men Type: BLOOD SPECIMENOrdering Facility: [facility] Address: [address] [place] [address] Result Comment: Amer [place] Diabetes Association guidelines indicate that patients with HgbA1c in the range 5.7-6.4% are at increased risk for development of diabetes, and intervention by lifestyle modification may be beneficial. HgbA1c greater or equal to 6.5% is considered diagnostic of diabetes. Performed By: #### 5 5454-3 ####[facility] LABIA [id number] [place] [address] [place] Renal function 2000 panelon 01-23-2025 Albumin [Mass/Vol] 4.2 g/dL Normal 3.9-4.9 [facility] Comment on above: Order Comment: Speci men Type: BLOOD SPECIMENOrdering Facility: [facility] Address: [address] [place] [address] Performed By: #### 2 4362-6 ####[facility] [id number] [place] [address] [place] Anion gap [Moles/Vol] 9 mmol/L Normal 8-15 [facility] Comment on above: Order Comment: Speci men Type: BLOOD SPECIMENOrdering Facility: [facility] Address: [address] [place] [address] Performed By: #### 2 4362-6 ####[facility]ITALCHARISSELIA [id number] [place] [address] [place] Calcium [Mass/Vol] 10.3 mg/dL High 8.5-10.2 [facility] Comment on above: Order Comment: Speci men Type: BLOOD SPECIMENOrdering Facility: [facility] Address: [address] [place] [address] Performed By: #### 2 4362-6 ####[facility] MILLTOWNCLIA [id number] [place] [address] [place] Chloride [Moles/Vol] 106 mmol/L Normal 98-107 [facility] Comment on above: Order Comment: Speci men Type: BLOOD SPECIMENOrdering Facility: [facility] Address: [address] [place] [address] Performed By: #### 2 4362-6 ####[facility] MILLTOWNCLIA [id number] [place] [address] [place] CO2 [Moles/Vol] 22 mmol/L Normal 22-30 [facility] Comment on above: Order Comment: Speci men Type: BLOOD SPECIMENOrdering Facility: [facility] Address: [address] [place] [address] Performed By: #### 2 4362-6 ####[facility] MILLTOWNCLIA [id number] [place] [address] [place] Creatinine [Mass/Vol] 2.38 mg/dL High 0.58-0.96 [facility] Comment on above: Order Comment: Speci men Type: BLOOD SPECIMENOrdering Facility: [facility] Address: [address] [place] [address] Performed By: #### 2 4362-6 ####[facility] MILLTOWNCLIA [id number] [place] [address] [place] eGFRcr SerPlBld CKD-EPI 2020 21 mL/min/1.73m??? Low >=60 [facility] Comment on above: Order Comment: Speci men Type: BLOOD SPECIMENOrdering Facility: [facility] Address: [address] [id number] Result Comment: Shana mated Glomerular Filtration Rate (eGFR) is calculated using the 2020 CKD-EPI creatinine equation. This equation utilizes serum creatinine, sex, and age as parameters. The creatinine assay has traceable calibration to isotope dilution-mass spectrometry. Refer to KDIGO guidelines for clinical interpretation. In patients with unstable renal function, e.g. those with acute kidney injury, the eGFR may not accurately reflect actual GFR. Performed By: #### 2 4362-6 ####[facility] [id number] [place] [address] [place] Glucose [Mass/Vol] 145 mg/dL High 74-99 [facility] Comment on above: Order Comment: Nickolas wiggins Type: BLOOD SPECIMENOrdering Facility: [facility] Address: [address] [place] [address] Result Comment: The [place] Diabetes Association (ADA) provides guidance for cutoff values for fasting glucose and random glucose. The ADA defines fasting as no caloric intake for at least 8 hours. Fasting plasma glucose results between 100 to 125 mg/dL indicate increased risk for diabetes (prediabetes). Fasting plasma glucose results greater than or equal to 126 mg/dL meet the criteria for diagnosis of diabetes. In the absence of unequivocal hyperglycemia, results should be confirmed by repeat testing. In a patient with classic symptoms of hyperglycemia or hyperglycemic crisis, random plasma glucose results greater than or equal to 200 mg/dL meet the criteria for diagnosis of diabetes. Reference: Standards of Medical Care in Diabetes 2016, [place] Diabetes Association. Diabetes Care. 2016.39(Suppl 1). Performed By: #### 2 4362-6 ####[facility] [id number] [place] [address] [place] Phosphate [Mass/Vol] 3.9 mg/dL Normal 2.7-4.8 [facility] Comment on above: Order Comment: Nickolas wiggins Type: BLOOD SPECIMENOrdering Facility: [facility] Address: [address] [place] [address] Performed By: #### 2 4362-6 ####[facility] MILLTOWNCLIA [id number] [place] [address] [place] Potassium [Moles/Vol] 5.2 mmol/L High 3.7-5.1 [facility] Comment on above: Order Comment: Speci men Type: BLOOD SPECIMENOrdering Facility: [facility] Address: [address] [place] [address] Performed By: #### 2 4362-6 ####[facility] CENTERLIA [id number] [place] [address] [place] Sodium [Moles/Vol] 137 mmol/L Normal 136-144 [facility] Comment on above: Order Comment: Speci men Type: BLOOD SPECIMENOrdering Facility: [facility] Address: [address] [place] [address] Performed By: #### 2 4362-6 ####[facility] CENTERLIA [id number] [place] [address] [place] Urea nitrogen [Mass/Vol] 32 mg/dL High 7-21 [facility] Comment on above: Order Comment: Speci men Type: BLOOD SPECIMENOrdering Facility: [facility] Address: [address] [place] [address] Performed By: #### 2 4362-6 ####[facility] WESTNCLIA [id number] [place] [address] [place] Rheumatoid fact SerPl-aCncon 01-23-2025 Rheumatoid factor Qn [IU]/mL Normal <16 [facility] Comment on above: Order Comment: Speci men Type: BLOOD SPECIMENOrdering Facility: [facility] Address: [address] [place] [address] Performed By: #### 2 132-9, 1988-5, 59896-9 ####[facility] LABCLIA [id number] [address] [place] Vit B12 SerPl-mCncon 025 Cobalamin (Vitamin B12) [Mass/Vol] 420 pg/mL Normal 232-1245 [facility] Comment on above: Order Comment: Speci men Type: BLOOD SPECIMENOrdering Facility: [facility] Address: [address] [place] [address] Performed By: #### 2 132-9, 1987-, 04415-7 ####[facility] LABCLIA [id number] [address] STATES [place] XR CHEST 2V FRONTAL/LATon XR CHEST 2V FRONTAL/LAT * * *Final Report* * * DATE OF EXAM: Jan 14 2025 1:31PM WOX [id number] - XR CHEST 2V FRONTAL/LAT / PROCEDURE REASON: multiple diagnoses * * * * Physician Interpretation * * * * EXAMINATION: CHEST RADIOGRAPH (2 VIEW FRONTAL and LATERAL) CLINICAL HISTORY: Other fatigue Chest pain, unspecified type MQ: [id number]_6 EXAM DATE/TIME: 01/14/2025 1:31 PM COMPARISON: 10/03/2022 RESULT: Lines, tubes, and devices: None. Lungs and pleura: No consolidation. No lung mass. No pleural effusion. No pneumothorax. Cardiomediastinal silhouette: Normal cardiomediastinal silhouette. Bones and soft tissues: Degenerative changes throughout the spine. IMPRESSION: No acute radiographic abnormality. Interventional Pain Physician: PSCB Transcribe Date/Time: Jan 15 2025 4:10P Dictated by : AARON PETERS MD This examination was interpreted and the report reviewed and electronically signed by: AARON PETERS MD on Jan 15 2025 4:15PM EST [id number] Normal [facility] XR HIP CARTER 5V PEL+ AP/LAT EA HIPon 01-14-2025 XR HIP CARTER 5V PEL+ AP/LAT EA HIP * * *Final Report* * * DATE OF EXAM: Jan 14 2025 1:31PM WOX 5353 - XR HIP CARTER 5V PEL+ AP/LAT EA HIP / PROCEDURE REASON: multiple diagnoses * * * * Physician Interpretation * * * * EXAMINATION / TECHNIQUE: XR LUMBAR 3V AP/LAT/L5-S1, XR HIP CARTER 5V PEL+ AP/LAT EA HIP HISTORY: chest, bilateral hip, lower back pain Weakness of both lower extremities Chronic midline low back pain, unspecified whether sciatica present Chronic midline low back pain, unspecified whether sciatica present Bilateral hip pain COMPARISON: Hip radiographs dated 09/13/2020. Lumbar spine radiographs dated 05/30/2019. RESULT: Lumbar spine: Counting reference: Lumbosacral junction. For the purposes of this report, L4-5 is considered the level of the iliac crest and assume there are 5 lumbar-type vertebrae. Anatomic variant: None. Vertebral body heights are maintained. Minimal anterolisthesis L4 on L5 and L5 on S1. Mild multilevel degenerative disc disease. Severe lower lumbar facet hypertrophy. Hips/pelvis: No acute fracture or osseous malalignment. Moderate to severe right and mild left hip osteoarthritis. The sacroiliac joints and symphysis pubis are intact. COMBINED IMPRESSION: Degenerative changes as described. Interventional Pain Physician: [facility] Transcribe Date/Time: Jan 21 2025 8:19P Dictated by : MISHEL SORIA MD This examination was interpreted and the report reviewed and electronically signed by: MISHEL SORIA MD on Jan 21 2025 8:20PM EST [id number] Normal [facility] XR LUMBAR 3V AP/LAT/L5-S1on 01-14-2025 XR LUMBAR 3V AP/LAT/L5-S1 * * *Final Report* * * DATE OF EXAM: Jan 14 2025 1:31PM WOX 5228 - XR LUMBAR 3V AP/LAT/L5-S1 / PROCEDURE REASON: multiple diagnoses * * * * Physician Interpretation * * * * EXAMINATION / TECHNIQUE: XR LUMBAR 3V AP/LAT/L5-S1, XR HIP CARTER 5V PEL+ AP/LAT EA HIP HISTORY: chest, bilateral hip, lower back pain Weakness of both lower extremities Chronic midline low back pain, unspecified whether sciatica present Chronic midline low back pain, unspecified whether sciatica present Bilateral hip pain COMPARISON: Hip radiographs dated 09/13/2020. Lumbar spine radiographs dated 05/30/2019. RESULT: Lumbar spine: Counting reference: Lumbosacral junction. For the purposes of this report, L4-5 is considered the level of the iliac crest and assume there are 5 lumbar-type vertebrae. Anatomic variant: None. Vertebral body heights are maintained. Minimal anterolisthesis L4 on L5 and L5 on S1. Mild multilevel degenerative disc disease. Severe lower lumbar facet hypertrophy. Hips/pelvis: No acute fracture or osseous malalignment. Moderate to severe right and mild left hip osteoarthritis. The sacroiliac joints and symphysis pubis are intact. COMBINED IMPRESSION: Degenerative changes as described. Interventional Pain Physician: PSCB Transcribe Date/Time: Jan 21 2025 8:19P Dictated by : MISHEL SORIA MD This examination was interpreted and the report reviewed and electronically signed by: MISHEL SORIA MD on Jan 21 2025 8:20PM EST [id number] Normal [facility] Bacteria Ur Culton Bacteria identified Cx Nom (U) ORGANISM ID: 1 10,000 -<50,000 CFU/ml Mixed microbiota No further workup. Mixed microbiota can be due to???urine???contamination with skin bacteria at time of collection or presence of a long-term urinary catheter. If a new culture is needed, please consider re-education of the patient on proper midstream collection technique or straight catheterization for???urine???collection. Normal [facility] Comment on above: Performed By: #### 6 30-4 ####[facility] LABCLIA [id number] [place] [address] [place] CBC W Auto Differential pane l (Bld)on 01-12-2025 Basophils (Bld) [#/Vol] 0.07 10*3/uL Normal <0.11 [facility] Comment on above: Order Comment: Speci men Type: BLOOD SPECIMEN [facility] Address: [address] [place] [address] Performed By: #### 1 9123-9 #### [facility] CLIA [id number] [address] [place] [address] [place] Basophils/100 WBC (Bld) 0.7 % Normal [facility] Comment on above: Order Comment: Speci men Type: BLOOD SPECIMEN [facility] Address: [address] [place] [address] Performed By: #### 1 9123-9 #### [facility] CLIA [id number] [address] [place] [address] [place] Differential cell count method Nom (Bld) Auto Normal [facility] Comment on above: Order Comment: Speci men Type: BLOOD SPECIMEN [facility] Address: [address] [place] [address] Performed By: #### 1 9123-9 #### [facility] CLIA [id number] [address] [place] [address] [place] Eosinophils (Bld) [#/Vol] 0.26 10*3/uL Normal <0.46 [facility] Comment on above: Order Comment: Speci men Type: BLOOD SPECIMEN [facility] Address: [address] [place] [address] Performed By: #### 1 9123-9 #### [facility] CLIA [id number] [address] [place] [address] [place] Eosinophils/100 WBC (Bld) 2.5 % Normal [facility] Comment on above: Order Comment: Speci men Type: BLOOD SPECIMEN [facility] Address: [address] [place] [address] Performed By: #### 1 9123-9 #### [facility] CLIA [id number] [address] [place] [address] [place] Erythrocyte distribution width (RBC) [Ratio] 14.4 % Normal 11.5-15.0 [facility] Comment on above: Order Comment: Speci men Type: BLOOD SPECIMEN [facility] Address: [address] [place] [address] Performed By: #### 1 9123-9 #### [facility] CLIA [id number] [address] [place] [address] [place] Hematocrit (Bld) [Volume fraction] 40.2 % Normal 36.0-46.0 [facility] Comment on above: Order Comment: Speci men Type: BLOOD SPECIMEN [facility] Address: [address] [place] [address] Performed By: #### 1 9123-9 #### [facility] CLIA [id number] [address] [place] [address] [place] Hemoglobin (Bld) [Mass/Vol] 12.9 g/dL Normal 11.5-15.5 [facility] Comment on above: Order Comment: Speci men Type: BLOOD SPECIMEN [facility] Address: [address] [place] [address] Performed By: #### 1 9123-9 #### [facility] CLIA [id number] [address] [place] [address] [place] Immature granulocytes (Bld) [#/Vol] 0.03 10*3/uL Normal <0.10 [facility] Comment on above: Order Comment: Speci men Type: BLOOD SPECIMEN [facility] Address: [address] [place] [address] Performed By: #### 1 9123-9 #### [facility] CLIA [id number] [address] [place] [address] [place] Immature granulocytes/100 WBC (Bld) 0.3 % Normal [facility] Comment on above: Order Comment: Speci men Type: BLOOD SPECIMEN [facility] Address: [address] [place] [address] Performed By: #### 1 9123-9 #### [facility] CLIA [id number] [address] [place] [address] [place] Lymphocytes (Bld) [#/Vol] 3.21 10*3/uL Normal 1.00-4.00 [facility] Comment on above: Order Comment: Speci men Type: BLOOD SPECIMEN [facility] Address: [address] [place] [address] Performed By: #### 1 9123-9 #### [facility] CLIA [id number] [address] [place] [address] [place] Lymphocytes/100 WBC (Bld) 30.7 % Normal [facility] Comment on above: Order Comment: Speci men Type: BLOOD SPECIMEN [facility] Address: [address] [place] [address] Performed By: #### 1 9123-9 #### [facility] CLIA [id number] [address] [place] [address] [place] MCH (RBC) [Entitic mass] 29.0 pg Normal 26.0-34.0 [facility] Comment on above: Order Comment: Speci men Type: BLOOD SPECIMEN [facility] Address: [address] [place] [address] Performed By: #### 1 9123-9 #### [facility] CLIA [id number] [address] [place] [address] [place] MCHC (RBC) [Mass/Vol] 32.1 g/dL Normal 30.5-36.0 [facility] Comment on above: Order Comment: Speci men Type: BLOOD SPECIMEN [facility] Address: [address] [place] [address] Performed By: #### 1 9123-9 #### [facility] CLIA [id number] [address] [place] [address] [place] MCV (RBC) [Entitic vol] 90.3 fL Normal 80.0-100.0 [facility] Comment on above: Order Comment: Speci men Type: BLOOD SPECIMEN [facility] Address: [address] [place] [address] Performed By: #### 1 9123-9 #### [facility] CLIA [id number] [address] [place] [address] [place] Monocytes (Bld) [#/Vol] 0.70 10*3/uL Normal <0.87 [facility] Comment on above: Order Comment: Speci men Type: BLOOD SPECIMEN [facility] Address: [address] [place] [address] Performed By: #### 1 9123-9 #### [facility] CLIA [id number] [address] [place] [address] [place] Monocytes/100 WBC (Bld) 6.7 % Normal [facility] Comment on above: Order Comment: Speci men Type: BLOOD SPECIMEN [facility] Address: [address] [place] [address] Performed By: #### 1 9123-9 #### [facility] CLIA [id number] [address] [place] [address] [place] Neutrophils (Bld) [#/Vol] 6.19 10*3/uL Normal 1.45-7.50 [facility] Comment on above: Order Comment: Speci men Type: BLOOD SPECIMEN [facility] Address: [address] [place] [address] Performed By: #### 1 9123-9 #### [facility] CLIA [id number] [address] [place] [address] [place] Neutrophils/100 WBC (Bld) 59.1 % Normal [facility] Comment on above: Order Comment: Speci men Type: BLOOD SPECIMEN [facility] Address: [address] [place] [address] Performed By: #### 1 9123-9 #### [facility] CLIA [id number] [address] [place] [address] [place] Nucleated RBC (Bld) [#/Vol] 10*3/uL Normal <0.01 [facility] Comment on above: Order Comment: Speci men Type: BLOOD SPECIMEN [facility] Address: [address] [place] [address] Performed By: #### 1 9123-9 #### [facility] CLIA [id number] [address] [place] [address] [place] Nucleated RBC/100 WBC (Bld) [Ratio] 0.0 /100 WBC Normal [facility] Comment on above: Order Comment: Speci men Type: BLOOD SPECIMEN [facility] Address: [address] [place] [address] Performed By: #### 1 9123-9 #### [facility] CLIA [id number] [address] [place] [address] [place] Platelet mean volume (Bld) [Entitic vol] 9.3 fL Normal 9.0-12.7 [facility] Comment on above: Order Comment: Speci men Type: BLOOD SPECIMEN [facility] Address: [address] [place] [address] Performed By: #### 1 9123-9 #### [facility] CLIA [id number] [address] [place] [address] [place] Platelets (Bld) [#/Vol] 264 10*3/uL Normal 150-400 [facility] Comment on above: Order Comment: Speci men Type: BLOOD SPECIMEN [facility] Address: [address] [place] [address] Performed By: #### 1 9123-9 #### [facility] CLIA [id number] [address] [place] [address] [place] RBC (Bld) [#/Vol] 4.45 10*6/uL Normal 3.90-5.20 [facility] Comment on above: Order Comment: Speci men Type: BLOOD SPECIMEN [facility] Address: [address] [place] [address] Performed By: #### 1 9123-9 #### [facility] CLIA [id number] [address] [place] [address] [place] WBC (Bld) [#/Vol] 10.46 10*3/uL Normal 3.70-11.00 [facility] Comment on above: Order Comment: Speci men Type: BLOOD SPECIMEN [facility] Address: [address] [place] [address] Performed By: #### 1 9123-9 #### [facility] CLIA [id number] [address] [place] [address] OF DE CNOVon 01-12-2025 CNOV Office Visit (INTMWS ) GAYLE CHO ([id number]) 1950 F Date Time Provider Department 01/12/25 1:40 PM ANGÉLICA MORATAYA During your visit today, we recorded the following information about you: Pulse Respiration Blood pressure Weight 76/minute 16/minute 168/80 68 kg Angélica Morataya APRN.OUTPATIENT PHYSICAL THERAPIST 01/12/2025 3:45 PM Signed CC: Patient presents with: Medicare Wellness Exam: Annual Medicare Wellness HPI Gayle Cho is a 74 year old female who presents today for medicare wellness but with multiple complaints so visit focused on as many concerns as possible. Has not been seen in 10 months. Recording using Open[employer] software for draft documentation of the visit was discussed with the patient/authorized customer assistance representative; all questions welcomed and answered. Patient/authorized customer assistance representative agreed to proceed Fatigue: - Persistent fatigue x1 year. - Reports ability to sleep 24 hours a day. - Attributes fatigue to antihypertensive medications. Chest Pain Has history of Uncontrolled HTN, Non-Stemi, CAD: - Intermittent left-sided chest pain, believes it may be related to gas but unsure. - Denies using nitroglycerin for chest pain relief. - Denies chest pressure with exertion. - Denies significant dyspnea, wheezing, edema, palpitations, headaches, or dizziness - Reports increased cough, attributes to smoking and possible cold. - does not follow with cardiology. [place] [facility] in 2020 with mild mitral and tricuspid valve insufficiency and diastolic dysfunction. - Taking amlodipine and carvedilol. - Reports improved blood pressure readings today. - Took Xanax before the visit, prescribed by a account services representative previously. - has requested xanax in past visits for BP control and been denied, has had consults placed for cardiology but not established. - Taking baby aspirin. Back Pain: - Chronic back pain, worsened after a fall on a concrete stoop years ago. - Pain has progressively worsened over time. No recent evaluation for this - Reports inability to perform household tasks due to pain. Leg Pain: - Muscle aches in both legs, resembling post-charley horse pain, x2 months. - More pronounced in the right leg. - Reports difficulty walking since COVID-19 infection in 2020. - Underwent physical therapy [id number]. - Occasional sensation of legs giving out. Occasionally with a numb type of sensation. - Noticed size discrepancy between legs, with the right leg appearing smaller. Has had this ongoing for a long time. Hypothyroidism: - Taking levothyroxine daily on an empty stomach. - Expresses concern that medication may not be fully addressing symptoms due to her extreme fatigue DC: - Not using CPAP machine for several years. GI Symptoms: - Occasional constipation and loose stools. - Last bowel movement this morning was loose. - Reports abdominal pain, particularly in the lower abdomen. - Prolapsed bladder, reports incomplete emptying. - History of sepsis following kidney stone treatment last year. Denies any dark urine, pain with urination, or blood in urine. No nausea or vomiting. Social History: - Smoker. - , 4 years ago. - Has family in [place]. REVIEW OF SYSTEMS See HPI PAST MEDICAL HISTORY Diagnosis Date Bowel disease Calculus of kidney Dyslipidemia Fracture Generalized osteoarthrosis, unspecified site Hypertension Hypothyroidism 02/20/2012 Mitral valve disorders(424.0) Myalgia and myositis, unspecified Non-ST elevation myocardial infarction (NSTEMI), subendocardial infarction, initial episode of care (HCC) 02/20/2012 Type II or unspecified type diabetes mellitus without mention of complication, not stated as uncontrolled Unspecified hypothyroidism PAST SURGICAL HISTORY Procedure Laterality Date DILATION AND CURETTAGE DXAND/THER NONOBSTETRIC Dilation AND curettage PRQ CARD STENT/ATH/ANGIO 2011 x 2 TONSILLECTOMY PRIMARY/SECONDARY Tonsillectomy ALLERGIES Iv Contrast [Iodine], Anesthetics - Amide Type - Select Amino Amides, Antihistimine, Enalapril, Erythromycin, Lopressor [Metoprolol Tartrate], Penicillins, and Synthroid [Levothyroxine Sodium] MEDICATIONS carvedilol (COREG) 25 mg tablet Take 1 tablet by mouth two times a day. amLODIPine (NORVASC) 5 mg tablet Take 1 tablet by mouth once daily. Magnesium Oxide 250 mg magnesium tab Take 250 mg by mouth once daily. Lactobacillus acidophilus (ACIDOPHILUS) cap Take 1 capsule by mouth once daily. 1 billion, amLODIPine (NORVASC) 5 mg tablet Take 1 tablet by mouth once daily. nitroglycerin sublingual (NITROQUICK) 0.4 mg SL tablet Dissolve 1 tablet under the tongue as needed. FOR CHEST PAIN. IF NO RELIEF CALL 911 levothyroxine (LEVOXYL) 100 mcg tablet Take 1 tablet by mouth once daily. Take on empty stomach. For Thyroid. ergocalciferol 50,000 unit capsule (SUNNI (more content not included)... Normal [facility] Comprehensive metabolic 2000 panelon 01-12-2025 Albumin [Mass/Vol] 4.4 g/dL Normal 3.9-4.9 [facility] Comment on above: Order Comment: Nickolas wiggins Type: BLOOD SPECIMENOrdering Facility: [facility] Address: [address] [place] [address] Performed By: #### 3 024-7, 18128-2, 3051-0, 3016-3 ####[facility] LABCLIA [id number] [place] [address] [place] ALP [Catalytic activity/Vol] 106 U/L Normal 34-123 [facility] Comment on above: Order Comment: Nickolas wiggins Type: BLOOD SPECIMENOrdering Facility: [facility] Address: [address] [place] [address] Performed By: #### 3 024-7, 06787-5, 3051-0, 3016-3 ####[facility] LABCLIA [id number] [address] [address] [place] ALT [Catalytic activity/Vol] 13 U/L Normal 7-38 [facility] Comment on above: Order Comment: Speci men Type: BLOOD SPECIMENOrdering Facility: [facility] Address: [address] [place] [address] Performed By: #### 3 024-7, 02340-6, 3051-0, 3016-3 ####[facility] LABIA [id number] [place] [address] [place] Anion gap [Moles/Vol] 12 mmol/L Normal 8-15 [facility] Comment on above: Order Comment: Speci men Type: BLOOD SPECIMENOrdering Facility: [facility] Address: [address] [place] [address] Performed By: #### 3 024-7, 81806-6, 3051-0, 3016-3 ####[facility] LABIA [id number] [place] [address] [place] AST [Catalytic activity/Vol] 14 U/L Normal 13-35 [facility] Comment on above: Order Comment: Speci men Type: BLOOD SPECIMENOrdering Facility: [facility] Address: [address] [place] [address] Performed By: #### 3 024-7, 74551-9, 3051-0, 3016-3 ####[facility] LABIA [id number] [address] [address] [place] Bilirubin [Mass/Vol] 0.3 mg/dL Normal 0.2-1.3 [facility] Comment on above: Order Comment: Speci men Type: BLOOD SPECIMENOrdering Facility: [facility] Address: [address] [place] [address] Performed By: #### 3 024-7, 76500-0, 3051-0, 3016-3 ####[facility] LABCLIA [id number] [address] [address] [place] Calcium [Mass/Vol] 10.2 mg/dL Normal 8.5-10.2 [facility] Comment on above: Order Comment: Speci men Type: BLOOD SPECIMENOrdering Facility: [facility] Address: [address] [place] [address] Performed By: #### 3 024-7, 12520-9, 3051-0, 3016-3 ####[facility] LABCLIA [id number] [place] [address] [place] Chloride [Moles/Vol] 105 mmol/L Normal 98-107 [facility] Comment on above: Order Comment: Speci men Type: BLOOD SPECIMENOrdering Facility: [facility] Address: [address] [place] [address] Performed By: #### 3 024-7, 78053-0, 3051-0, 3016-3 ####[facility] LABIA [id number] [place] [address] [place] CO2 [Moles/Vol] 21 mmol/L Low 22-30 [facility] Comment on above: Order Comment: Speci men Type: BLOOD SPECIMENOrdering Facility: [facility] Address: [address] [place], [place] [address] Performed By: #### 3 024-7, 45993-7, 3051-0, 3016-3 ####[facility] LABIA [id number] [address] [address] [place] Creatinine [Mass/Vol] 1.78 mg/dL High 0.58-0.96 [facility] Comment on above: Order Comment: Speci men Type: BLOOD SPECIMENOrdering Facility: [facility] Address: [address] [place] [address] Performed By: #### 3 024-7, 97924-2, 3051-0, 3016-3 ####[facility] LABIA [id number] [place] [address] [place] eGFRcr SerPlBld CKD-EPI 2020 29 mL/min/1.73m??? Low >=60 [facility] Comment on above: Order Comment: Nickolas wiggins Type: BLOOD SPECIMENOrdering Facility: [facility] Address: [address] [place] [address] Result Comment: Shana mated Glomerular Filtration Rate (eGFR) is calculated using the 2020 CKD-EPI creatinine equation. This equation utilizes serum creatinine, sex, and age as parameters. The creatinine assay has traceable calibration to isotope dilution-mass spectrometry. Refer to KDIGO guidelines for clinical interpretation. In patients with unstable renal function, e.g. those with acute kidney injury, the eGFR may not accurately reflect actual GFR. Performed By: #### 3 024-7, 05326-4, 305-0, 6-3 ####[facility] LABCLIA [id number] [place] [address] [place] Glucose [Mass/Vol] 72 mg/dL Low 74-99 [facility] Comment on above: Order Comment: Nickolas wiggins Type: BLOOD SPECIMENOrdering Facility: [facility] Address: [address] [place] [address] Result Comment: The [place] Diabetes Association (ADA) provides guidance for cutoff values for fasting glucose and random glucose. The ADA defines fasting as no caloric intake for at least 8 hours. Fasting plasma glucose results between 100 to 125 mg/dL indicate increased risk for diabetes (prediabetes). Fasting plasma glucose results greater than or equal to 126 mg/dL meet the criteria for diagnosis of diabetes. In the absence of unequivocal hyperglycemia, results should be confirmed by repeat testing. In a patient with classic symptoms of hyperglycemia or hyperglycemic crisis, random plasma glucose results greater than or equal to 200 mg/dL meet the criteria for diagnosis of diabetes. Reference: Standards of Medical Care in Diabetes 2016, [place] Diabetes Association. Diabetes Care. 2016.39(Suppl 1). Performed By: #### 3 024-7, 10523-7, 3051-0, 3016-3 ####[facility] LABCLIA [id number] [address] [address] [place] Potassium [Moles/Vol] 5.0 mmol/L Normal 3.7-5.1 [facility] Comment on above: Order Comment: Speci men Type: BLOOD SPECIMENOrdering Facility: [facility] Address: [address] [place] [address] Performed By: #### 3 024-7, 10036-6, 305-0, 3015-3 ####[facility] LABIA [id number] [place] [address] [place] Protein [Mass/Vol] 7.7 g/dL Normal 6.3-8.0 [facility] Comment on above: Order Comment: Speci men Type: BLOOD SPECIMENOrdering Facility: [facility] Address: [address] [place] [address] Performed By: #### 3 024-7, 31236-4, 0, 3 ####[facility] LABIA [id number] [place] [address] [place] Sodium [Moles/Vol] 138 mmol/L Normal 136-144 [facility] Comment on above: Order Comment: Speci men Type: BLOOD SPECIMENOrdering Facility: [facility] Address: [address] [place], [place] [address] Performed By: #### 3 024-7, 73511-0, 305-0, 6-3 ####[facility] LABIA [id number] [place] [address] [place] Urea nitrogen [Mass/Vol] 28 mg/dL High 7-21 [facility] Comment on above: Order Comment: Speci men Type: BLOOD SPECIMENOrdering Facility: [facility] Address: [address] [place] [address] Performed By: #### 3 024-7, 30982-5, 305-0, 3016-3 ####[facility] LABCLIA [id number] [place] [address] [place] ECG COMPLETEon 01-12-2025 ECG COMPLETE Ventricular Rate : 5 9 BPM Atrial Rate : 59 BPM P-R Interval : 180 ms QRS Duration : 92 ms Q-T Interval : 460 ms QTC Calculation(Bazett) : 455 ms Calculated P [place] : 41 degrees Calculated R [place] : 0 degrees Calculated T [place] : 74 degrees SINUS BRADYCARDIA MINIMAL VOLTAGE CRITERIA FOR LVH, MAY BE NORMAL VARIANT ( Anthony product ) BORDERLINE ECG Confirmed by MD MORROW QARAB ([id number]) on 01/13/2025 5:09:27 PM NAME : GAYLE CHO PID : [id number] : 1950 Gender : Female Race : ORD : [id number] Procedure Date : Jan 12 2025 14:19:07 Edit Date : Jan 13 2025 17:09:30 Diagnosis: SINUS BRADYCARDIA MINIMAL VOLTAGE CRITERIA FOR LVH, MAY BE NORMAL VARIANT ( Dinosaur product ) BORDERLINE ECG Confirmed by MD MORROW QARAB ([id number]) on 01/13/2025 5:09:27 PM Test Reason : R53.83 Other fatigue Location : 185 : [facility] Overread By : MD MORROW QARAB Edited By : MD MORROW QARAB Referred By : , Acquired by : [id number], Normal [facility] ESR Westergren method (Bld) [Velocity]on 01-12-2025 ESR (Bld) [Velocity] 41 mm/h High 0-20 [facility] Comment on above: Order Comment: Nickolas wiggins Type: BLOOD SPECIMEN [facility] Address: [address] [place] [address] Performed By: #### 1 9123-9 #### [facility] CLIA [id number] [address] [place] [address] [place] HbA1c (Bld)on 01-12-2025 Average glucose Estimated from glycated hemoglobin (Bld) [Mass/Vol] 140 mg/dL Normal [facility] Comment on above: Order Comment: Speci men Type: BLOOD SPECIMEN [facility] Address: [address] [place] [address] Result Comment: eAG: (Estimated average glucose) is a calculated value from HgbA1c and is customer assistance representative of the average blood glucose level in the last 2-3 month period. Performed By: #### 5 5454-3 #### [facility] CLIA [id number] [address] [place] [address] [place] HbA1c (Bld) [Mass fraction] 6.5 % High 4.3-5.6 [facility] Comment on above: Order Comment: Speci men Type: BLOOD SPECIMEN [facility] Address: [address] [place] [address] Result Comment: [place] Diabetes Association guidelines indicate that patients with HgbA1c in the range 5.7-6.4% are at increased risk for development of diabetes, and intervention by lifestyle modification may be beneficial. HgbA1c greater or equal to 6.5% is considered diagnostic of diabetes. Performed By: #### 5 5454-3 #### [facility] CLIA [id number] [address] [place] [address] [place] Magnesium SerPl-mCncon 01-12 Magnesium [Mass/Vol] 2.2 mg/dL Normal 1.7-2.3 [facility] Comment on above: Order Comment: Speci men Type: BLOOD SPECIMEN [facility] Address: [address] [place] [address] Performed By: #### 1 9123-9 #### [facility] CLIA [id number] [address] [place] [address] [place] T3Free SerPl-mCncon 01-13-20 25 Free T3 [Mass/Vol] 2.0 pg/mL Low 2.3-4.1 [facility] Comment on above: Order Comment: Speci men Type: BLOOD SPECIMENOrdering Facility: [facility] Address: [address] [place] [address] Performed By: #### 3 024-7, 42630-6, 305-0, 6-3 ####[facility] LABCLIA [id number] [place] [address] [place] T4 Free SerPl-mCncon 025 Free T4 [Mass/Vol] 1.5 ng/dL Normal 0.9-1.7 [facility] Comment on above: Order Comment: Speci men Type: BLOOD SPECIMENOrdering Facility: [facility] Address: [address] [place] [address] Performed By: #### 3 024-7, 58836-9, 305-0, 6-3 ####[facility] LABCLIA [id number] [place] [address] [place] TSH SerPl-aCncon 01-12-2025 TSH Qn 0.907 m[IU]/L Normal 0.270-4.20 0 [facility] Comment on above: Order Comment: Speci men Type: BLOOD SPECIMENOrdering Facility: [facility] Address: [address] [place] [address] Performed By: #### 3 024-7, 91926-5, 305-0, 6-3 ####[facility] LABIA [id number] [place] [address] [place] UA DIP, URINE (POC)on 2024 BILIRUBIN UA (POCT) Negative Negative [facility] CLARITY UA (POCT) Clear [facility] COLOR UA (POCT) Yellow [facility] GLUCOSE UA (POCT) Negative Negative mg/dL [facility] Hemoglobin Ql (U) Negative Negative [facility] Interpretation and review of laboratory results Abnormal [facility] KETONE UA (POCT) Negative Negative mg/dL [facility] LEUKOCYTES UA (POCT) Large Abnormal Negative [facility] NITRITE UA (POCT) Negative [facility]A ([facility]CT) 5.5 4.5 - 8.0 [facility] Protein Ql (U) 30 mg/dL Abnormal Negative [facility] SPECIFIC GRAVITY UA (POCT) 1.010 1.005 - 1.030 [facility] UROBILINOGEN UA (POCT) 0.2 Normal E.U./dL [facility] Location:[facility], [address] [place] [address], [id number] [place] [address] POINT OF CARE [facility] Urinalysis complete panel (U )on 01-12-2025 Bacteria LM.HPF (Urine sed) [#/Area] Negative Normal Negative [facility] Comment on above: Order Comment: Speci men Type: URINE SPECIMENOrdering Facility: [facility] Address: [address] [place] [address] Performed By: #### 2 4356-8 ####[facility] LABCLIA [id number] [place] [address] [place] Bilirubin Ql (U) Negative Normal Negative [facility] Comment on above: Order Comment: Speci men Type: URINE SPECIMENOrdering Facility: [facility] Address: [address] [place] [address] Performed By: #### 2 4356-8 ####[facility] LABCLIA [id number] [place] [address] [place] Clarity (Unsp spec) Clear Normal Clear [facility] Comment on above: Order Comment: Speci men Type: URINE SPECIMENOrdering Facility: [facility] Address: [address] [place] [address] Performed By: #### 2 4356-8 ####[facility] LABCLIA [id number] [place] [address] [place] Color (U) Yellow Normal Yellow [facility] Comment on above: Order Comment: Speci men Type: URINE SPECIMENOrdering Facility: [facility] Address: [address] [place] [address] Performed By: #### 2 4356-8 ####[facility] LABCLIA [id number] [place] [address] [place] Epithelial cells LM.HPF (Urine sed) [#/Area] Few Normal [facility] Comment on above: Order Comment: Speci men Type: URINE SPECIMENOrdering Facility: [facility] Address: [address] [place] [address] Performed By: #### 2 4356-8 ####[facility] LABCLIA [id number] [address] [place] [address] [place] Glucose Test strip (U) [Mass/Vol] Negative Normal Negative [facility] Comment on above: Order Comment: Speci men Type: URINE SPECIMENOrdering Facility: [facility] Address: [address] [place] [address] Performed By: #### 2 4356-8 ####[facility] LABCLIA [id number] [address], [place] [address] [place] Hemoglobin Ql (U) Negative Normal Negative [facility] Comment on above: Order Comment: Speci men Type: URINE SPECIMENOrdering Facility: [facility] Address: [address] [place] [address] Performed By: #### 2 4356-8 ####[facility] LABCLIA [id number] [address], [place] [address] [place] Hyaline casts (Urine sed) [#/Area] 1-3 /LPF Abnormal 0 /LPF [facility] Comment on above: Order Comment: Speci men Type: URINE SPECIMENOrdering Facility: [facility] Address: [address] [place] [address] Performed By: #### 2 4356-8 ####[facility] LABCLIA [id number] [address], [facility] [place] Ketones Ql (U) Negative Normal Negative [facility] Comment on above: Order Comment: Speci men Type: URINE SPECIMENOrdering Facility: [facility] Address: [address] [place] [address] Performed By: #### 2 4356-8 ####[facility] LABCLIA [id number] [address], [place] [address] [place] Leukocyte esterase Test strip Ql (U) 2+ Abnormal Negative [facility] Comment on above: Order Comment: Speci men Type: URINE SPECIMENOrdering Facility: [facility] Address: [address] [place] [address] Performed By: #### 2 4356-8 ####[facility] LABCLIA [id number] [place] [address] [place] Nitrite Ql (U) Negative Normal Negative [facility] Comment on above: Order Comment: Speci men Type: URINE SPECIMENOrdering Facility: [facility] Address: [address] [place] [address] Performed By: #### 2 4356-8 ####[facility] LABIA [id number] [place] [address] [place] pH (U) 5.5 [pH] Normal 5.0-8.0 [facility] Comment on above: Order Comment: Speci men Type: URINE SPECIMENOrdering Facility: [facility] Address: [address] [place] [address] Performed By: #### 2 4356-8 ####[facility] LABCLIA [id number] [place] [address] [place] Protein (U) [Mass/Vol] 1+ Abnormal Negative [facility] Comment on above: Order Comment: Speci men Type: URINE SPECIMENOrdering Facility: [facility] Address: [address] [place] [address] Performed By: #### 2 4356-8 ####[facility] LABIA [id number] [place] [address] [place] RBC LM.HPF (Urine sed) [#/Area] 0-2 /HPF Normal 0-2 /HPF [facility] Comment on above: Order Comment: Speci men Type: URINE SPECIMENOrdering Facility: [facility] Address: [address] [place] [address] Performed By: #### 2 4356-8 ####[facility] [id number] [place] [address] [place] Specific gravity (U) [Rel density] 1.010 Normal 1.005-1.03 0 [facility] Comment on above: Order Comment: Speci men Type: URINE SPECIMENOrdering Facility: [facility] Address: [address] [place] [address] Performed By: #### 2 4356-8 ####[facility] [id number] [place] [address] [place] Urobilinogen Ql (U) 0.2 EU/dL Normal 0.2-1.0 EU/dL [facility] Comment on above: Order Comment: Speci men Type: URINE SPECIMENOrdering Facility: [facility] Address: [address] [place] [address] Performed By: #### 2 4356-8 ####[facility] [id number] [place] [address] [place] WBC LM.HPF (Urine sed) [#/Area] 11-20 /HPF Abnormal 0-5 /HPF [facility] Comment on above: Order Comment: Speci men Type: URINE SPECIMENOrdering Facility: [facility] Address: [address] [place] [address] Performed By: #### 2 4356-8 ####[facility] [id number] [place] [address] [place] CNCOon 12-25-2024 CNCO Letter Text Normal [facility] CNPNo 10-06-2024 CNPN Telephone (ZULEMA) GAYLE CHO ([id number]) 1950 F Date Time Provider Department 10/06/24 ROLA GASTELUM During your visit today, we recorded the following information about you: Allergies As of Date: 10/06/2024 Noted Allergy Reaction IV CONTRAST (IODINE) 01/27/2020 7 - Swelling 12 - Shortness of Breath Comments: Swelling in lips ANESTHETICS - AMIDE TYPE - SELECT*07/12/2019 1 - Mental Status Change ANTIHISTIMINE 01/10/2017 5 - Intolerance Comments: Heart racing/palpitations ENALAPRIL 08/09/2007 14 - Other: See Comments Comments: Muscle myalgias ERYTHROMYCIN 10/08/2018 11 - Vomiting LOPRESSOR (METOPROLOL TARTRATE) 08/09/2007 14 - Other: See Comments Comments: Muscle myalgias PENICILLINS 08/09/2007 2 - Rash SYNTHROID (LEVOTHYROXINE SODIUM) 08/09/2007 14 - Other: See Comments Comments: Fatigue and jittery Date Reviewed: 03/24/2024 Reviewed by: Roberta Lujan MA - Fully Assessed Prescriptions as of 10/06/2024 - amLODIPine (NORVASC) 5 mg tablet Take 1 tablet by mouth once daily. - carvedilol (COREG) 25 mg tablet Take 1 tablet by mouth two times a day. - Magnesium Oxide 250 mg magnesium tab Take 250 mg by mouth once daily. - Lactobacillus acidophilus (ACIDOPHILUS) cap Take 1 capsule by mouth once daily. 1 billion, - amLODIPine (NORVASC) 5 mg tablet Take 1 tablet by mouth once daily. - nitroglycerin sublingual (NITROQUICK) 0.4 mg SL tablet Dissolve 1 tablet under the tongue as needed. FOR CHEST PAIN. IF NO RELIEF CALL 911 - levothyroxine (LEVOXYL) 100 mcg tablet Take 1 tablet by mouth once daily. Take on empty stomach. For Thyroid. - ergocalciferol 50,000 unit capsule (VITAMIN D2, DRISDOL) Take 1 tablet by mouth twice weekly a5fbyel, then decrease to 1 tablet weekly. - CPAP - aspirin, enteric coated (ASPIRIN, ENTERIC COATED) 81 mg EC tablet Take 1 tablet by mouth once daily. Problem List As Of Date 10/06/2024 Noted Resolved PAIN ABDOMEN( Right Lower Quadrant) [R10.31] 08/10/2007 History of non-ST elevation myocardial infarcti*02/20/2012 Class: Acute Uncontrolled hypertension [I10] 02/20/2012 Hypothyroidism [E03.9] 02/20/2012 Hyperlipidemia [E78.5] 02/20/2012 Class: Chronic Type II or unspecified type diabetes mellitus w*02/20/2012 11/06/2018 Coronary artery disease [I25.10] 05/27/2012 S/P coronary artery stent placement [Z95.5] 10/22/2012 Chest pain [R07.9] 04/26/2016 SUMMARY 04/27/2016 07/28/2021 Hypertensive urgency [I16.0] 04/27/2016 07/28/2021 Left arm pain [M79.602] 04/27/2016 Tobacco abuse counseling [Z71.6] 02/04/2019 07/28/2021 Bronchitis [J40] 02/04/2019 07/28/2021 Stage 3a chronic kidney disease (HCC) [N18.31] 07/28/2021 Hypertensive kidney disease with stage 3a chron*07/28/2021 Benzodiazepine dependence (HCC) [F13.20] 01/02/2024 Encounter Status:Closed by ROLA GASTELUM on 10/06/24 [facility] 04-14-2024 [facility] Tele[facility] (INTMWS) GAYLE CHO ([id number]) 1950 F Date Time Provider Department 04/14/24 JESSICA CLARK INTWS During your visit today, we recorded the following information about you: Robbin Ortega RN 04/14/2024 2:16 PM Signed Andree KELLY PT- phoned with update on patient. Reports patient had stents removed from kidneys on Mar 05, 2024. Reports patient reports off and on she is having pain in RLQ to back, about a 1/10. No pain or burning with urination, no blood in urine. Bowels are moving fine, and VS are good. Skye is going to call patient's surgeon with update also. Pt has f/u appt with surgeon on 05-01-24. Jessica Clark MD 04/14/2024 6:35 PM Signed I would request that this information be relayed to her surgeon. Regards, Jessica Clark MD Allergies As of Date: 04/14/2024 Noted Allergy Reaction IV CONTRAST (IODINE) 01/27/2020 7 - Swelling 12 - Shortness of Breath Comments: Swelling in lips ANESTHETICS - AMIDE TYPE - SELECT*07/12/2019 1 - Mental Status Change ANTIHISTIMINE 01/10/2017 5 - Intolerance Comments: Heart racing/palpitations ENALAPRIL 08/09/2007 14 - Other: See Comments Comments: Muscle myalgias ERYTHROMYCIN 10/08/2018 11 - Vomiting LOPRESSOR (METOPROLOL TARTRATE) 08/09/2007 14 - Other: See Comments Comments: Muscle myalgias PENICILLINS 08/09/2007 2 - Rash SYNTHROID (LEVOTHYROXINE SODIUM) 08/09/2007 14 - Other: See Comments Comments: Fatigue and jittery Date Reviewed: 03/24/2024 Reviewed by: Roberta Lujan MA - Fully Assessed Reason for Visit: Patient Update [1234] Prescriptions as of 04/15/2024 - amLODIPine (NORVASC) 5 mg tablet Take 5 mg by mouth once daily. - Magnesium Oxide 250 mg magnesium tab Take 250 mg by mouth once daily. - Lactobacillus acidophilus (ACIDOPHILUS) cap Take 1 capsule by mouth once daily. 1 billion, - amLODIPine (NORVASC) 5 mg tablet Take 1 tablet by mouth once daily. - nitroglycerin sublingual (NITROQUICK) 0.4 mg SL tablet Dissolve 1 tablet under the tongue as needed. FOR CHEST PAIN. IF NO RELIEF CALL 911 - levothyroxine (LEVOXYL) 100 mcg tablet Take 1 tablet by mouth once daily. Take on empty stomach. For Thyroid. - ergocalciferol 50,000 unit capsule (VITAMIN D2, DRISDOL) Take 1 tablet by mouth twice weekly [id number], then decrease to 1 tablet weekly. - carvedilol (COREG) 25 mg tablet Take 1 tablet by mouth two times a day. - CPAP - aspirin, enteric coated (ASPIRIN, ENTERIC COATED) 81 mg EC tablet Take 1 tablet by mouth once daily. Problem List As Of Date 04/14/2024 Noted Resolved PAIN ABDOMEN( Right Lower Quadrant) [R10.31] 08/10/2007 History of non-ST elevation myocardial infarcti*02/20/2012 Class: Acute Uncontrolled hypertension [I10] 02/20/2012 Hypothyroidism [E03.9] 02/20/2012 Hyperlipidemia [E78.5] 02/20/2012 Class: Chronic Type II or unspecified type diabetes mellitus w*02/20/2012 11/06/2018 Coronary artery disease [I25.10] 05/27/2012 S/P coronary artery stent placement [Z95.5] 10/22/2012 Chest pain [R07.9] 04/26/2016 SUMMARY 04/27/2016 07/28/2021 Hypertensive urgency [I16.0] 04/27/2016 07/28/2021 Left arm pain [M79.602] 04/27/2016 Tobacco abuse counseling [Z71.6] 02/04/2019 07/28/2021 Bronchitis [J40] 02/04/2019 07/28/2021 Stage 3a chronic kidney disease (HCC) [N18.31] 07/28/2021 Hypertensive kidney disease with stage 3a chron*07/28/2021 Benzodiazepine dependence (HCC) [F13.20] 01/02/2024 Encounter Status:Closed by Robbin ORTEGA on 04/15/24 Normal [facility] 25([place])[facility]3 [facility] 25-hydroxyvitamin D3 [Mass/Vol] 29.4 ng/mL Low 31.0-80.0 [facility] Comment on above: Order Comment: Speci men Type: BLOOD SPECIMENOrdering Facility: [facility] Address: [address] [place] [address] Result Comment: Clas sification of 25 [place] Vitamin D status: Deficiency/Insufficiency: < or = 30 ng/ml. Sufficiency/Optimal Levels: 31-80 ng/mL Toxicity: > 100 ng/mL. Test performed by chemiluminescent immunoassay. Performed By: #### 1 989-3 ####[facility] LABCLIA [id number] [place] [address] [place] Bacteria Ur Culton Bacteria identified Cx Nom (U) ORGANISM ID: 1 <10,000 CFU/ml Normal urogenital el Normal [facility] Comment on above: Performed By: #### 6 30-4, 32844-0 ####[facility] LABCLIA [id number] [place] [address] [place] Ferritin SerPl-mCncon 2023 Ferritin [Mass/Vol] 145.0 ng/mL Normal 14.7-205.1 [facility] Comment on above: Order Comment: Speci men Type: BLOOD SPECIMENOrdering Facility: [facility] Address: [address] [place] [address] Performed By: #### 5 0190-8, 6-4 ####[facility] LABCLIA [id number] [place] [address] [place] Iron and Iron binding capaci ty panelon 03-28-2024 Iron [Mass/Vol] 50 ug/dL Normal 41-186 [facility] Comment on above: Order Comment: Speci men Type: BLOOD SPECIMENOrdering Facility: [facility] Address: [address] [place] [address] Performed By: #### 5 0190-8, 6-4 ####[facility] LABCLIA [id number] [place] [address] [place] Iron binding capacity [Mass/Vol] 260 ug/dL Normal 232-386 [facility] Comment on above: Order Comment: Speci men Type: BLOOD SPECIMENOrdering Facility: [facility] Address: [address] [place] [address] Performed By: #### 5 0190-8, 6-4 ####[facility] LABCLIA [id number] [place] [address] [place] Iron/TIBC [Molar ratio] 19.2 % Normal 15.0-57.0 [facility] Comment on above: Order Comment: Speci men Type: BLOOD SPECIMENOrdering Facility: [facility] Address: [address] [place] [address] Performed By: #### 5 0190-8, 2276-4 ####[facility] LABCLIA [id number] [place] [address] [place] Urinalysis complete panel (U )on 03-28-2024 BACTERIA UL 2078.5 uL High Negative [facility] Comment on above: Order Comment: Speci men Type: URINE SPECIMENOrdering Facility: [facility] Address: [address] [place] [address] Performed By: #### 6 30-4, 25321-4 ####[facility] LABCLIA [id number] [place] [address] [place] Bilirubin Ql (U) Negative Normal Negative [facility] Comment on above: Order Comment: Speci men Type: URINE SPECIMENOrdering Facility: [facility] Address: [address] [place] [address] Performed By: #### 6 30-4, 65455-1 ####[facility] LABCLIA [id number] [place] [address] [place] Clarity (Unsp spec) Cloudy Abnormal Clear [facility] Comment on above: Order Comment: Speci men Type: URINE SPECIMENOrdering Facility: [facility] Address: [address] [place] [address] Performed By: #### 6 30-4, 60653-6 ####[facility] LABCLIA [id number] [place] [address] [place] Color (U) Yellow Normal Yellow [facility] Comment on above: Order Comment: Speci men Type: URINE SPECIMENOrdering Facility: [facility] Address: [address] [place] [address] Performed By: #### 6 30-4, 19651-8 ####[facility] LABCLIA [id number] [place] [address] [place] Epithelial cells LM.HPF (Urine sed) [#/Area] Moderate Normal [facility] Comment on above: Order Comment: Speci men Type: URINE SPECIMENOrdering Facility: [facility] Address: [address] [place] [address] Result Comment: Few Performed By: #### 6 30-4, 11849-1 ####[facility] LABCLIA [id number] [place] [address] [place] Glucose Test strip (U) [Mass/Vol] Negative Normal Negative [facility] Comment on above: Order Comment: Speci men Type: URINE SPECIMENOrdering Facility: [facility] Address: [address] [place] [address] Performed By: #### 6 30-4, 53220-5 ####[facility] LABCLIA [id number] [place] [address] [place] Hemoglobin Ql (U) 3+ Abnormal Negative [facility] Comment on above: Order Comment: Speci men Type: URINE SPECIMENOrdering Facility: [facility] Address: [address] [place] [address] Performed By: #### 6 30-4, 73594-4 ####[facility] LABCLIA [id number] [place] [address] [place] Hyaline casts (Urine sed) [#/Area] 4-10 /LPF Abnormal 0 /LPF [facility] Comment on above: Order Comment: Speci men Type: URINE SPECIMENOrdering Facility: [facility] Address: [address] [place] [address] Performed By: #### 6 30-4, 54340-0 ####[facility] LABCLIA [id number] [place] [address] [place] Ketones Ql (U) Negative Normal Negative [facility] Comment on above: Order Comment: Speci men Type: URINE SPECIMENOrdering Facility: [facility] Address: [address] [place] [address] Performed By: #### 6 30-4, 93107-6 ####[facility] LABCLIA [id number] [place] [address] [place] Leukocyte esterase Test strip Ql (U) 3+ Abnormal Negative [facility] Comment on above: Order Comment: Speci men Type: URINE SPECIMENOrdering Facility: [facility] Address: [address] [place] [address] Performed By: #### 6 30-4, 02025-0 ####[facility] LABCLIA [id number] [place] [address] [place] Nitrite Ql (U) Negative Normal Negative [facility] Comment on above: Order Comment: Speci men Type: URINE SPECIMENOrdering Facility: [facility] Address: [address] [place] [address] Performed By: #### 6 30-4, 15630-4 ####[facility] LABCLIA [id number] [place] [address] [place] pH (U) 5.5 [pH] Normal <8.5 [facility] Comment on above: Order Comment: Speci men Type: URINE SPECIMENOrdering Facility: [facility] Address: [address] [place] [address] Performed By: #### 6 30-4, 98876-4 ####[facility] LABCLIA [id number] [place] [address] [place] Protein (U) [Mass/Vol] 2+ Abnormal Negative [facility] Comment on above: Order Comment: Speci men Type: URINE SPECIMENOrdering Facility: [facility] Address: [address] [place] [address] Performed By: #### 6 30-4, 25884-2 ####[facility] LABIA [id number] [place] [address] [place] RBC LM.HPF (Urine sed) [#/Area] /[HPF] Abnormal 0-2 /HPF [facility] Comment on above: Order Comment: Speci men Type: URINE SPECIMENOrdering Facility: [facility] Address: [address] [place] [address] Performed By: #### 6 30-, 29125-9 ####[facility] LABIA [id number] [place] [address] [place] Specific gravity (U) [Rel density] 1.012 Normal 1.005-1.03 0 [facility] Comment on above: Order Comment: Speci men Type: URINE SPECIMENOrdering Facility: [facility] Address: [address] [place] [address] Performed By: #### 6 30-, 69263-3 ####[facility] [id number] [place] [address] [place] Urobilinogen Ql (U) 0.2 EU/dL Normal 0.2-1.0 EU/dL [facility] Comment on above: Order Comment: Speci men Type: URINE SPECIMENOrdering Facility: [facility] Address: [address] [place] [address] Performed By: #### 6 30-4, 59487-2 ####[facility] LABIA [id number] [place] [address] [place] WBC LM.HPF (Urine sed) [#/Area] /[HPF] Abnormal 0-5 /HPF [facility] Comment on above: Order Comment: Speci men Type: URINE SPECIMENOrdering Facility: [facility] Address: [address] [place] [address] Performed By: #### 6 30-4, 45132-0 ####[facility] LABCLIA [id number] [place] [address] [place] Yeast.budding LM.HPF (Urine sed) [#/Area] Present Abnormal None Seen [facility] Comment on above: Order Comment: Speci men Type: URINE SPECIMENOrdering Facility: [facility] Address: [address] [place] [address] Performed By: #### 6 30-4, 22820-2 ####[facility] LABCLIA [id number] [place] [address] [place] CNPNon 03-25-2024 CNPN Telephone (INTMWS) GAYLE CHO ([id number]) 1950 F Date Time Provider Department 03/25/24 JESSICA CLARK INTWS During your visit today, we recorded the following information about you: Robbin Ortega RN 03/25/2024 10:54 AM Signed Patient asking pcp to order UACNS, for her to complete tomorrow when she does her blood work. Reports she was in ICU with sepsis/UTI caused by e-coli, and would like to know if it's cleared up b/c she has so much fatigue. Reports she is not having UTI s/s, but her kidneys were packed with kidney stones, and they had to laser them, when she was in the hospital. Pended labs. Pt asking office to let her know urine test was added. Jessica Clark MD 03/25/2024 5:28 PM Signed Ordered as requested. Jessica Navarro MD, Jane, MA 03/26/2024 8:53 AM Signed Patient notified. Allergies As of Date: 03/25/2024 Noted Allergy Reaction IV CONTRAST (IODINE) 01/27/2020 7 - Swelling 12 - Shortness of Breath Comments: Swelling in lips ANESTHETICS - AMIDE TYPE - SELECT*07/12/2019 1 - Mental Status Change ANTIHISTIMINE 01/10/2017 5 - Intolerance Comments: Heart racing/palpitations ENALAPRIL 08/09/2007 14 - Other: See Comments Comments: Muscle myalgias ERYTHROMYCIN 10/08/2018 11 - Vomiting LOPRESSOR (METOPROLOL TARTRATE) 08/09/2007 14 - Other: See Comments Comments: Muscle myalgias PENICILLINS 08/09/2007 2 - Rash SYNTHROID (LEVOTHYROXINE SODIUM) 08/09/2007 14 - Other: See Comments Comments: Fatigue and jittery Date Reviewed: 03/24/2024 Reviewed by: Roberta Lujan MA - Fully Assessed Reason for Visit: Patient Question [1477] Primary Visit Diagnosis:Recurrent UTI [N39.0] Order(s):URINALYSIS WITH MICROSCOPIC, REFLEX CULTURE [SQUACII] Order #: [id number] FUTURE Prescriptions as of 03/26/2024 - amLODIPine (NORVASC) 5 mg tablet Take 5 mg by mouth once daily. - Magnesium Oxide 250 mg magnesium tab Take 250 mg by mouth once daily. - Lactobacillus acidophilus (ACIDOPHILUS) cap Take 1 capsule by mouth once daily. 1 billion, - amLODIPine (NORVASC) 5 mg tablet Take 1 tablet by mouth once daily. - nitroglycerin sublingual (NITROQUICK) 0.4 mg SL tablet Dissolve 1 tablet under the tongue as needed. FOR CHEST PAIN. IF NO RELIEF CALL 911 - levothyroxine (LEVOXYL) 100 mcg tablet Take 1 tablet by mouth once daily. Take on empty stomach. For Thyroid. - ergocalciferol 50,000 unit capsule (VITAMIN D2, DRISDOL) Take 1 tablet by mouth twice weekly [id number], then decrease to 1 tablet weekly. - carvedilol (COREG) 25 mg tablet Take 1 tablet by mouth two times a day. - CPAP - aspirin, enteric coated (ASPIRIN, ENTERIC COATED) 81 mg EC tablet Take 1 tablet by mouth once daily. Problem List As Of Date 03/25/2024 Noted Resolved PAIN ABDOMEN( Right Lower Quadrant) [R10.31] 08/10/2007 History of non-ST elevation myocardial infarcti*02/20/2012 Class: Acute Uncontrolled hypertension [I10] 02/20/2012 Hypothyroidism [E03.9] 02/20/2012 Hyperlipidemia [E78.5] 02/20/2012 Class: Chronic Type II or unspecified type diabetes mellitus w*02/20/2012 11/06/2018 Coronary artery disease [I25.10] 05/27/2012 S/P coronary artery stent placement [Z95.5] 10/22/2012 Chest pain [R07.9] 04/26/2016 SUMMARY 04/27/2016 07/28/2021 Hypertensive urgency [I16.0] 04/27/2016 07/28/2021 Left arm pain [M79.602] 04/27/2016 Tobacco abuse counseling [Z71.6] 02/04/2019 07/28/2021 Bronchitis [J40] 02/04/2019 07/28/2021 Stage 3a chronic kidney disease (HCC) [N18.31] 07/28/2021 Hypertensive kidney disease with stage 3a chron*07/28/2021 Benzodiazepine dependence (HCC) [F13.20] 01/02/2024 Encounter Status:Closed by REGLA VILLATORO on 03/26/24 [facility] CNPN Telephone (FAMWS) GAYLE CHO ([id number]) 1950 F Date Time Provider Department 03/25/[facility] During your visit today, we recorded the following information about you: Nati Paulson LPN 03/25/2024 3:51 PM Signed Pt had appt 03/[address] Clark. In light of appt yesterday, Jose with [facility] calls to ask if Dr. Clark would be willing now to sign HH orders for pt or if Angélica Morataya would be willing. Call Jose at number given. MASSIMO Medina Chitra, MD 03/25/2024 5:31 PM Signed Willing to sign the HH Orders Regards, Regla Castillo MD, MA 03/26/2024 8:55 AM Signed Jose @ [facility] notified. Allergies As of Date: 03/25/2024 Noted Allergy Reaction IV CONTRAST (IODINE) 01/27/2020 7 - Swelling 12 - Shortness of Breath Comments: Swelling in lips ANESTHETICS - AMIDE TYPE - SELECT*07/12/2019 1 - Mental Status Change ANTIHISTIMINE 01/10/2017 5 - Intolerance Comments: Heart racing/palpitations ENALAPRIL 08/09/2007 14 - Other: See Comments Comments: Muscle myalgias ERYTHROMYCIN 10/08/2018 11 - Vomiting LOPRESSOR (METOPROLOL TARTRATE) 08/09/2007 14 - Other: See Comments Comments: Muscle myalgias PENICILLINS 08/09/2007 2 - Rash SYNTHROID (LEVOTHYROXINE SODIUM) 08/09/2007 14 - Other: See Comments Comments: Fatigue and jittery Date Reviewed: 03/24/2024 Reviewed by: Roberta Lujan MA - Fully Assessed Reason for Visit: HH orders [Other] Prescriptions as of 03/26/2024 - amLODIPine (NORVASC) 5 mg tablet Take 5 mg by mouth once daily. - Magnesium Oxide 250 mg magnesium tab Take 250 mg by mouth once daily. - Lactobacillus acidophilus (ACIDOPHILUS) cap Take 1 capsule by mouth once daily. 1 billion, - amLODIPine (NORVASC) 5 mg tablet Take 1 tablet by mouth once daily. - nitroglycerin sublingual (NITROQUICK) 0.4 mg SL tablet Dissolve 1 tablet under the tongue as needed. FOR CHEST PAIN. IF NO RELIEF CALL 911 - levothyroxine (LEVOXYL) 100 mcg tablet Take 1 tablet by mouth once daily. Take on empty stomach. For Thyroid. - ergocalciferol 50,000 unit capsule (VITAMIN D2, DRISDOL) Take 1 tablet by mouth twice weekly [id number], then decrease to 1 tablet weekly. - carvedilol (COREG) 25 mg tablet Take 1 tablet by mouth two times a day. - CPAP - aspirin, enteric coated (ASPIRIN, ENTERIC COATED) 81 mg EC tablet Take 1 tablet by mouth once daily. Problem List As Of Date 03/25/2024 Noted Resolved PAIN ABDOMEN( Right Lower Quadrant) [R10.31] 08/10/2007 History of non-ST elevation myocardial infarcti*02/20/2012 Class: Acute Uncontrolled hypertension [I10] 02/20/2012 Hypothyroidism [E03.9] 02/20/2012 Hyperlipidemia [E78.5] 02/20/2012 Class: Chronic Type II or unspecified type diabetes mellitus w*02/20/2012 11/06/2018 Coronary artery disease [I25.10] 05/27/2012 S/P coronary artery stent placement [Z95.5] 10/22/2012 Chest pain [R07.9] 04/26/2016 SUMMARY 04/27/2016 07/28/2021 Hypertensive urgency [I16.0] 04/27/2016 07/28/2021 Left arm pain [M79.602] 04/27/2016 Tobacco abuse counseling [Z71.6] 02/04/2019 07/28/2021 Bronchitis [J40] 02/04/2019 07/28/2021 Stage 3a chronic kidney disease (HCC) [N18.31] 07/28/2021 Hypertensive kidney disease with stage 3a chron*07/28/2021 Benzodiazepine dependence (HCC) [F13.20] 01/02/2024 Encounter Status:Closed by REGLA VILLATORO on 03/26/24 [facility] 03-24-2024 CNOV Office Visit (INTMWS ) GAYLE CHO ([id number]) 1950 F Date Time Provider Department 03/24/24 3:40 PM JESSICA CLARK INTRobbinWS During your visit today, we recorded the following information about you: Pulse Respiration Blood pressure Weight 73/minute 16/minute 160/68 67.6 kg Jessica Clark MD 03/24/2024 4:45 PM Signed Reason for Visit Patient presents with: Hospital Follow Up Gayle J Marquis is a 74 year old female who presents here today for Above Complaints.. Health Maintenance Pneumococcal Vaccine: 65+(1 of 2 - PCV) Depression Screening Anxiety Screening Hepatitis C Screening BP Controlled (<130/80) DTaP,Tdap,Td Vaccine(1 - Tdap) Lung Cancer Screening Shingrix Vaccine(1 of 2) Bone Density Screening RSV Vaccine(1 - 1-dose 75+ series) Advance Directive Discussion Influenza Vaccine(1) Covid-19 Vaccine( season) HPI She had fallen at home, taken to the ER by daughter. She had been feeling weak, was using a walker and just fell. Daughter knows she just fell. She figured out a way to just get up and text her daughter, she came and took her, found to have sepsis. She was in the ICU< was found to have urosepsis. She was in there for a day and then to the floors, she was IV abx, was sent home levaquin. Prior tot that she had a stone removal and after that she was using a walker at home. They thought some of the particles from the crushed up stones caused the issue. She is grieving for her . Has a support group at religion and family that is helping. She does not use the cpap machine. She is smoking only a half pack a day. No problem-specific Assessment AND Plan notes found for this encounter. PAST MEDICAL HISTORY Diagnosis Date Bowel disease Calculus of kidney Dyslipidemia Fracture Generalized osteoarthrosis, unspecified site Hypertension Hypothyroidism 02/20/2012 Mitral valve disorders(424.0) Myalgia and myositis, unspecified Non-ST elevation myocardial infarction (NSTEMI), subendocardial infarction, [facility] care ([facility]) 02/20/2012 Type II or unspecified type diabetes mellitus without mention of complication, not stated as uncontrolled Unspecified hypothyroidism PAST SURGICAL HISTORY Procedure Laterality Date DILATION AND CURETTAGE DXAND/THER NONOBSTETRIC Dilation AND curettage PRQ CARD STENT/ATH/ANGIO 2011 x 2 TONSILLECTOMY PRIMARY/SECONDARY Tonsillectomy No family history on file. Social History Tobacco Use Smoking status: Every Day Current packs/day: 1.00 Average packs/day: 1 pack/day for 45.0 years (45.0 ttl pk-yrs) Types: Cigarettes Smokeless tobacco: Never Substance Use Topics Alcohol use: No Drug use: No Past medical history, appointments, medications, allergies reviewed. Pertinent Lab/Diagnostic Studies are reviewed and discussed today Current Outpatient Medications: amLODIPine (NORVASC) 5 mg tablet Magnesium Oxide 250 mg magnesium tab Lactobacillus acidophilus (ACIDOPHILUS) cap levothyroxine (LEVOXYL) 100 mcg tablet ergocalciferol 50,000 unit capsule (VITAMIN D2, DRISDOL) carvedilol (COREG) 25 mg tablet CPAP aspirin, enteric coated (ASPIRIN, ENTERIC COATED) 81 mg EC tablet amLODIPine (NORVASC) 5 mg tablet nitroglycerin sublingual (NITROQUICK) 0.4 mg SL tablet losartan (COZAAR) 100 mg tablet Review of Systems CONSTITUTIONAL: No fevers, chills night sweats, unintended weight loss CARDIOVASCULAR: No chest pain, dyspnea, palpitations, orthopnea, PND, ankle edema. PULM: No dyspnea, unexplained cough. GI: No dysphagia/odynophagia, problematic reflux, constipation, diarrhea, changes in stool habits, hematochezia, melena. : No new urinary complaints, including dysuria, gross hematuria or pyuria. NEURO: No new balance problems, peripheral weakness/paresthesias or numbness of concern. Physical Exam BP 180/84 Pulse 73 Resp 16 Wt 67.6 kg (149 lb) BMI 25.58 kg/m? General appearance: Well appearing, alert, in no acute distress, well nourished. Skin: Skin color, texture, turgor normal, no suspicious rashes or lesions Head: Normocephalic, no masses, lesions, tenderness or abnormalities Eyes: Anicteric sclera. Pupils are equally round and reactive to light. Extraocular movements are intact. Lungs: Lungs clear to auscultation. No wheezing, rhonchi, rales Heart: RRR without murmur, gallop, or rubs. Extremities: No deformities, edema, skin discoloration, clubbing or cyanosis. Good capillary refill. ASSESSMENT/PLAN: 1. Uncontrolled hypertension - ICD9: 401.9, ICD10: I10 (primary diagnosis) - Controlled - Recommend home blood pressure monitoring, to bring results to next visit - Encouraged sodium restriction, DASH or Mediterranean diet - Recommend regular aerobic exercise - AMLODIPINE 5 MG TABLET - NITROGLYCERIN 0.4 MG SUBLINGUAL TABLET 2. Vitamin D deficiency - ICD9: 2 (more content not included)... Normal [facility] 1996 panelon 4 Cholesterol [Mass/Vol] 168 mg/dL Normal <200 [facility] Comment on above: Order Comment: Speci men Type: BLOOD SPECIMENOrdering Facility: [facility] Address: [address] [place] [address] Result Comment: <200 mg/dL, Desirable 200-239 mg/dL, Borderline high >239 mg/dL, High Performed By: #### 2 4331-1, 3024-7, 3051-0, 3016-3 ####[facility] LABCLIA [id number] [place] [address] [place] Cholesterol in HDL [Mass/Vol] 23 mg/dL Low >39 [facility] Comment on above: Order Comment: Speci men Type: BLOOD SPECIMENOrdering Facility: [facility] Address: [address] [place] [address] Result Comment: 40-5 9 mg/dL, Acceptable >59 mg/dL, High: Negative risk factor for coronary heart disease <40 mg/dL, Low: Positive risk factor for coronary heart disease Performed By: #### 2 4331-1, 3024-7, 305-0, 3016-3 ####[facility] LABCLIA [id number] [place] [address] [place] Cholesterol in LDL [Mass/Vol] 92 mg/dL Normal <100 [facility] Comment on above: Order Comment: Speci men Type: BLOOD SPECIMENOrdering Facility: [facility] Address: [address] [place] [address] Result Comment: <100 mg/dL, Optimal 100-129 mg/dL, Near optimal/above optimal 130-159 mg/dL, Borderline high 160-189 mg/dL, High >189 mg/dL, Very high Secondary prevention optimal LDL Cholesterol levels are recommended to be < 70 mg/dL Performed By: #### 2 4331-1, 3024-7, 3051-0, 3016-3 ####[facility] LABCLIA [id number] [address] STATES OF [place] Cholesterol in LDL/Cholesterol in HDL [Mass ratio] 4.00 {ratio} High <2.54 [facility] Comment on above: Order Comment: Nickolas wiggins Type: BLOOD SPECIMENOrdering Facility: [facility] Address: [address] [place] [address] Result Comment: Monalisa mathis: 1. National Cholesterol Education Program ATP III Guideline At-A-Glance Quick Desk Reference: National Heart, Lung, and Blood Spearman. National Institutes of Health. 2001: NIH Publication No. 01-3305. 2. An International Atherosclerosis Society position paper: global recommendations for the management of dyslipidemia: executive summary, Atherosclerosis. 2014: 232(2):410-413. Performed By: #### 2 4331-1, 3024-7, 3051-0, 3016-3 ####[facility] LABCLIA [id number] [place] [address] [place] Cholesterol in VLDL [Mass/Vol] 53 mg/dL High <30 [facility] Comment on above: Order Comment: Nickolas wiggins Type: BLOOD SPECIMENOrdering Facility: [facility] Address: [address] [place] [address] Performed By: #### 2 4331-1, 3024-7, 305-0, 3016-3 ####[facility] LABCLIA [id number] [place] [address] [place] Cholesterol non HDL [Mass/Vol] 145 mg/dL High <130 [facility] Comment on above: Order Comment: Nickolas wiggins Type: BLOOD SPECIMENOrdering Facility: [facility] Address: [address] [place] [address] Result Comment: <130 mg/dL, Optimal 130-159 mg/dL, Near optimal/above optimal 160-189 mg/dL, Borderline high 190-219 mg/dL, High >219 mg/dL, Very high Secondary prevention optimal non HDL Cholesterol levels are recommended to be <100 mg/dL Performed By: #### 2 4331-1, 3024-7, 3051-0, 3016-3 ####[facility] LABCLIA [id number] [address] [address] [place] Cholesterol.total/Cho lesterol in HDL [Mass ratio] 7.30 {ratio} High <5.10 [facility] Comment on above: Order Comment: Speci men Type: BLOOD SPECIMENOrdering Facility: [facility] Address: [address] [place] [address] Performed By: #### 2 4331-1, 3024-7, 305-0, 3016-3 ####[facility] [id number] [place] [address] [place] FASTING TIME 11 hrs Normal [facility] Comment on above: Order Comment: Speci men Type: BLOOD SPECIMENOrdering Facility: [facility] Address: [address] [place] [address] Performed By: #### 2 4331-1, 3024-7, 305-0, 6-3 ####[facility] LABIA [id number] [address] [address] [place] Triglyceride [Mass/Vol] 266 mg/dL High <150 [facility] Comment on above: Order Comment: Speci men Type: BLOOD SPECIMENOrdering Facility: [facility] Address: [address] [place] [address] Result Comment: <150 mg/dL, Normal 150-199 mg/dL, Borderline high 200-499 mg/dL, High >499 mg/dL, Very high Performed By: #### 2 4331-1, 3024-7, 305-0, 3016-3 ####[facility] LABIA [id number] [place] [id number] [place] T3Free SerPl-mCncon 03-21-20 24 Free T3 [Mass/Vol] 1.6 pg/mL Low 2.3-4.1 [facility] Comment on above: Order Comment: Speci men Type: BLOOD SPECIMENOrdering Facility: [facility] Address: [address] [place] [address] [place] [address] Performed By: #### 2 4331-1, 3024-7, 305-0, 6-3 ####[facility] LABCLIA [id number] [place] [address] [place] T4 Free SerPl-mCncon 024 Free T4 [Mass/Vol] 1.5 ng/dL Normal 0.9-1.7 [facility] Comment on above: Order Comment: Speci men Type: BLOOD SPECIMENOrdering Facility: [facility] Address: [address] [place] [address] Performed By: #### 2 4331-1, 3024-7, 305-0, 3015-3 ####[facility] LABCLIA [id number] [place] [address] [place] TSH SerPl-aCncon 03-21-2024 TSH Qn 2.490 m[IU]/L Normal 0.270-4.20 0 [facility] Comment on above: Order Comment: Speci men Type: BLOOD SPECIMENOrdering Facility: [facility] Address: [address] [place], [place] [address] [address] Performed By: #### 2 4331-1, 3024-7, 305-0, 3015-3 ####[facility] LABIA [id number] [address] STATES OF ED CNPNon 03-18-2024 [facility] (INTWS) GAYLE CHO ([id number]) 1950 F Date Time Provider Department 03/18/24 JESSICA CLARK INTWS During your visit today, we recorded the following information about you: Jessica Clark MD 04/02/2024 12:40 PM Signed Please let patient know that her lipids are a little elevated but not very concerning. Vit d levels are mildly low Please take OT vit d3 2000 IU daily with food. Ferritin and iron levels are normal. Her urine test results did not show infection on culture, does she have any symptoms? Dysuria ? Jessica Navarro MD, Rachel L, MA 04/02/2024 1:15 PM Signed Patient notified and verbalized understanding. Patient does note that she takes 50,000 international unit(s) of Vitamin D2 once a week. Do you still want her to take an additional 2,000 international unit(s) daily? MERI Dyer Chitra, MD 04/02/2024 7:03 PM Signed No , if she is taking 50,000 then she does not need to take 2000 international unit(s) Jessica Navarro MD, Mary, LPN 04/03/2024 10:33 AM Signed Called patient and updated, No urinary symptom at this time. Nicholas Zuleta LPN April 03, 2024 10:33 AM Allergies As of Date: 03/18/2024 Noted Allergy Reaction IV CONTRAST (IODINE) 01/27/2020 7 - Swelling 12 - Shortness of Breath Comments: Swelling in lips ANESTHETICS - AMIDE TYPE - SELECT*07/12/2019 1 - Mental Status Change ANTIHISTIMINE 01/10/2017 5 - Intolerance Comments: Heart racing/palpitations ENALAPRIL 08/09/2007 14 - Other: See Comments Comments: Muscle myalgias ERYTHROMYCIN 10/08/2018 11 - Vomiting LOPRESSOR (METOPROLOL TARTRATE) 08/09/2007 14 - Other: See Comments Comments: Muscle myalgias PENICILLINS 08/09/2007 2 - Rash SYNTHROID (LEVOTHYROXINE SODIUM) 08/09/2007 14 - Other: See Comments Comments: Fatigue and jittery Date Reviewed: 01/02/2024 Reviewed by: Angélica Morataya APRN.OUTPATIENT PHYSICAL THERAPIST - Fully Assessed Reason for Visit: Results [95] Prescriptions as of 04/03/2024 - amLODIPine (NORVASC) 5 mg tablet Take 5 mg by mouth once daily. - Magnesium Oxide 250 mg magnesium tab Take 250 mg by mouth once daily. - Lactobacillus acidophilus (ACIDOPHILUS) cap Take 1 capsule by mouth once daily. 1 billion, - amLODIPine (NORVASC) 5 mg tablet Take 1 tablet by mouth once daily. - nitroglycerin sublingual (NITROQUICK) 0.4 mg SL tablet Dissolve 1 tablet under the tongue as needed. FOR CHEST PAIN. IF NO RELIEF CALL 911 - levothyroxine (LEVOXYL) 100 mcg tablet Take 1 tablet by mouth once daily. Take on empty stomach. For Thyroid. - ergocalciferol 50,000 unit capsule (VITAMIN D2, DRISDOL) Take 1 tablet by mouth twice weekly c4inpnt, then decrease to 1 tablet weekly. - carvedilol (COREG) 25 mg tablet Take 1 tablet by mouth two times a day. - CPAP - aspirin, enteric coated (ASPIRIN, ENTERIC COATED) 81 mg EC tablet Take 1 tablet by mouth once daily. Problem List As Of Date 03/18/2024 Noted Resolved PAIN ABDOMEN( Right Lower Quadrant) [R10.31] 08/10/2007 History of non-ST elevation myocardial infarcti*02/20/2012 Class: Acute Hypertension [I10] 02/20/2012 Hypothyroidism [E03.9] 02/20/2012 Hyperlipidemia [E78.5] 02/20/2012 Class: Chronic Type II or unspecified type diabetes mellitus w*02/20/2012 11/06/2018 Coronary artery disease [I25.10] 05/27/2012 S/P coronary artery stent placement [Z95.5] 10/22/2012 Chest pain [R07.9] 04/26/2016 SUMMARY 04/27/2016 07/28/2021 Hypertensive urgency [I16.0] 04/27/2016 07/28/2021 Left arm pain [M79.602] 04/27/2016 Tobacco abuse counseling [Z71.6] 02/04/2019 07/28/2021 Bronchitis [J40] 02/04/2019 07/28/2021 Stage 3a chronic kidney disease (HCC) [N18.31] 07/28/2021 Hypertensive kidney disease with stage 3a chron*07/28/2021 Benzodiazepine dependence (HCC) [F13.20] 01/02/2024 Encounter Status:Closed by NICHOLAS ZULETA on 04/03/24 Normal [facility] Tele[facility] (INTMWS) MARQUISGAYLE ([id number]) 1950 F Date Time Provider Department 03/18/24 JESSICA CLARK INTMWS During your visit today, we recorded the following information about you: Jose Mcgarry LPN 03/18/2024 2:20 PM Signed Lefty Call, calling to report they will be starting nursing and PT with pt. MASSIMO Singh Donna M, RN 03/19/2024 3:50 PM Signed See TE on 03/14/24. Oneyda notified Dr. Clark will not be following orders. Chelly Alamo RN Allergies As of Date: 03/18/2024 Noted Allergy Reaction IV CONTRAST (IODINE) 01/27/2020 7 - Swelling 12 - Shortness of Breath Comments: Swelling in lips ANESTHETICS - AMIDE TYPE - SELECT*07/12/2019 1 - Mental Status Change ANTIHISTIMINE 01/10/2017 5 - Intolerance Comments: Heart racing/palpitations ENALAPRIL 08/09/2007 14 - Other: See Comments Comments: Muscle myalgias ERYTHROMYCIN 10/08/2018 11 - Vomiting LOPRESSOR (METOPROLOL TARTRATE) 08/09/2007 14 - Other: See Comments Comments: Muscle myalgias PENICILLINS 08/09/2007 2 - Rash SYNTHROID (LEVOTHYROXINE SODIUM) 08/09/2007 14 - Other: See Comments Comments: Fatigue and jittery Date Reviewed: 01/02/2024 Reviewed by: Angélica Morataya APRN.[facility] - Fully Assessed Reason for Visit: home health update [Other] Prescriptions as of 03/19/2024 - levothyroxine (LEVOXYL) 100 mcg tablet Take 1 tablet by mouth once daily. Take on empty stomach. For Thyroid. - ergocalciferol 50,000 unit capsule (VITAMIN D2, DRISDOL) Take 1 tablet by mouth twice weekly q9bbhny, then decrease to 1 tablet weekly. - carvedilol (COREG) 25 mg tablet Take 1 tablet by mouth two times a day. - losartan (COZAAR) 100 mg tablet Take 0.5 tablets by mouth two times a day. - nitroglycerin sublingual (NITROQUICK) 0.4 mg SL tablet Dissolve 1 tablet under the tongue as needed. FOR CHEST PAIN. IF NO RELIEF CALL 911 - CPAP - aspirin, enteric coated (ASPIRIN, ENTERIC COATED) 81 mg EC tablet Take 1 tablet by mouth once daily. Problem List As Of Date 03/18/2024 Noted Resolved PAIN ABDOMEN( Right Lower Quadrant) [R10.31] 08/10/2007 History of non-ST elevation myocardial infarcti*02/20/2012 Class: Acute Hypertension [I10] 02/20/2012 Hypothyroidism [E03.9] 02/20/2012 Hyperlipidemia [E78.5] 02/20/2012 Class: Chronic Type II or unspecified type diabetes mellitus w*02/20/2012 11/06/2018 Coronary artery disease [I25.10] 05/27/2012 S/P coronary artery stent placement [Z95.5] 10/22/2012 Chest pain [R07.9] 04/26/2016 SUMMARY 04/27/2016 07/28/2021 Hypertensive urgency [I16.0] 04/27/2016 07/28/2021 Left arm pain [M79.602] 04/27/2016 Tobacco abuse counseling [Z71.6] 02/04/2019 07/28/2021 Bronchitis [J40] 02/04/2019 07/28/2021 Stage 3a chronic kidney disease (HCC) [N18.31] 07/28/2021 Hypertensive kidney disease with stage 3a chron*07/28/2021 Benzodiazepine dependence (HCC) [F13.20] 01/02/2024 Encounter Status:Closed by JESSICA CLARK on 03/18/24 Normal [facility] Culture, Blood (WB)on 2023 CUB Blood cultures x2 fr om two different sites No growth in 5 days. Normal [facility] Comment on above: Performed By: #### L 500.2500, L100.0100 #### [facility] [address] [place], [address] Basic Metabolic Profile (BMP )on 03-14-2024 BUN/CRE 19.6 RATIO Normal 10-20 [facility] Comment on above: Performed By: #### L 100.0100, L500.2500 #### [facility] [address] [place], [address] CA,Total 8.8 mg/dL Normal 8.5-10.1 [facility] Comment on above: Performed By: #### L 100.0100, L500.2500 #### [facility] [address] [place], [address] Chloride [Moles/Vol] 107 mmol/L Normal 98-107 [facility] Comment on above: Performed By: #### L 100.0100, L500.2500 #### [facility] [address] [place], [address] CO2 [Moles/Vol] 22.0 mmol/L Normal 21.0-32.0 [facility] Comment on above: Performed By: #### L 100.0100, L500.2500 #### [facility] [address] [place], [address] Creatinine [Mass/Vol] 1.84 mg/dL High 0.55-1.02 [facility] Comment on above: Result Comment: The validity of the calculated GFR GFRAA in patients over 70 years has not been determined. Clinical correlation is essential. Performed By: #### L 100.0100, L500.2500 #### [facility] [address] [place], [address] ECRCL 23.16 ml/min Normal [facility] Comment on above: Performed By: #### L 100.0100, L500.2500 #### [facility] [address] [place], [address] EST GFR - AA 34 mL/min Low >60 [facility] Comment on above: Result Comment: Afri can [place] GFR Calc Performed By: #### L 100.0100, L500.2500 #### [facility] [address] [place], [address] GAP 6 Normal 5-15 [facility] Comment on above: Performed By: #### L 100.0100, L500.2500 #### [facility] [address] [place], [address] GFR/1.73 sq M.predicted among non-blacks MDRD (S/P/Bld) [Vol rate/Area] 28 mL/min/{1.73_m2} Low >60 [facility] Comment on above: Result Comment: Non- GFR Calc Performed By: #### L 100.0100, L500.2500 #### [facility] [address] [place], [address] Glucose [Mass/Vol] 92 mg/dL Normal 74-106 [facility] Comment on above: Performed By: #### L 100.0100, L500.2500 #### [facility] [address] [place], [address] Potassium [Moles/Vol] 3.8 mmol/L Normal 3.5-5.1 [facility] Comment on above: Performed By: #### L 100.0100, L500.2500 #### [facility] [address] [place], [address] Sodium [Moles/Vol] 135 mmol/L Low 136-145 [facility] Comment on above: Performed By: #### L 100.0100, L500.2500 #### [facility] [address] [place], [address] Urea nitrogen [Mass/Vol] 36 mg/dL High 7-18 [facility] Comment on above: Performed By: #### L 100.0100, L500.2500 #### [facility] [address] [place], [address] [facility] 03-14-2024 CNPN Telephone (INTMWS) GAYLE CHO ([id number]) 1950 F Date Time Provider Department 03/14/24 JESSICA CLARK INTWS During your visit today, we recorded the following information about you: Marilyn Porter LPN 03/14/2024 9:22 AM Signed Will from [facility] calling patient discharging today from [facility], sepsis, UTI, weakness acute kidney injury. Plan start of care on 03/16, asking if PCP would follow patient and sign orders? Please advise Lucia Sánchez LPN 03/14/2024 3:22 PM Signed Will calling again. Would like verbal orders today since they are starting care on Sunday. Please advise. Jessica Clark MD 03/17/2024 6:43 PM Signed I will not be able to sign the order, Patient was supposed to find a new primary care, please reference my note in July,. Where she accused me of things and we decided to end the doctor patient relationship. She has not seem me in 2.5 years. Apologies for the inconvenience Regards, Robbin Vides MD, RANDELL 03/18/2024 8:32 AM Signed Left vm for Will to return call to nurse for provider's message. Roberta Lujan MA 03/18/2024 2:10 PM Signed Pt on schedule for 03/24/24 for ER follow up. Pt has not been seen in 2.[address] De La Paz note below. Phone call to patient to inform, no answer. Will need to try again. MERI Dyer Donna M, RN 03/19/2024 4:04 PM Addendum Oneyda @ [facility] notified of provider message. Left VM message for patient to return call to [phone] and ask for triage nurse. Chelly Alamo RN Allergies As of Date: 03/14/2024 Noted Allergy Reaction IV CONTRAST (IODINE) 01/27/2020 7 - Swelling 12 - Shortness of Breath Comments: Swelling in lips ANESTHETICS - AMIDE TYPE - SELECT*07/12/2019 1 - Mental Status Change ANTIHISTIMINE 01/10/2017 5 - Intolerance Comments: Heart racing/palpitations ENALAPRIL 08/09/2007 14 - Other: See Comments Comments: Muscle myalgias ERYTHROMYCIN 10/08/2018 11 - Vomiting LOPRESSOR (METOPROLOL TARTRATE) 08/09/2007 14 - Other: See Comments Comments: Muscle myalgias PENICILLINS 08/09/2007 2 - Rash SYNTHROID (LEVOTHYROXINE SODIUM) 08/09/2007 14 - Other: See Comments Comments: Fatigue and jittery Date Reviewed: 01/02/2024 Reviewed by: Angélica Morataya APRN.OUTPATIENT PHYSICAL THERAPIST - Fully Assessed Reason for Visit: home health requesting verbal orders [Other] Prescriptions as of 03/21/2024 - levothyroxine (LEVOXYL) 100 mcg tablet Take 1 tablet by mouth once daily. Take on empty stomach. For Thyroid. - ergocalciferol 50,000 unit capsule (VITAMIN D2, DRISDOL) Take 1 tablet by mouth twice weekly f1quayk, then decrease to 1 tablet weekly. - carvedilol (COREG) 25 mg tablet Take 1 tablet by mouth two times a day. - losartan (COZAAR) 100 mg tablet Take 0.5 tablets by mouth two times a day. - nitroglycerin sublingual (NITROQUICK) 0.4 mg SL tablet Dissolve 1 tablet under the tongue as needed. FOR CHEST PAIN. IF NO RELIEF CALL 911 - CPAP - aspirin, enteric coated (ASPIRIN, ENTERIC COATED) 81 mg EC tablet Take 1 tablet by mouth once daily. Problem List As Of Date 03/14/2024 Noted Resolved PAIN ABDOMEN( Right Lower Quadrant) [R10.31] 08/10/2007 History of non-ST elevation myocardial infarcti*02/20/2012 Class: Acute Hypertension [I10] 02/20/2012 Hypothyroidism [E03.9] 02/20/2012 Hyperlipidemia [E78.5] 02/20/2012 Class: Chronic Type II or unspecified type diabetes mellitus w*02/20/2012 11/06/2018 Coronary artery disease [I25.10] 05/27/2012 S/P coronary artery stent placement [Z95.5] 10/22/2012 Chest pain [R07.9] 04/26/2016 SUMMARY 04/27/2016 07/28/2021 Hypertensive urgency [I16.0] 04/27/2016 07/28/2021 Left arm pain [M79.602] 04/27/2016 Tobacco abuse counseling [Z71.6] 02/04/2019 07/28/2021 Bronchitis [J40] 02/04/2019 07/28/2021 Stage 3a chronic kidney disease (HCC) [N18.31] 07/28/2021 Hypertensive kidney disease with stage 3a chron*07/28/2021 Benzodiazepine dependence (HCC) [F13.20] 01/02/2024 Encounter Status:Closed by MARILYN PORTER on 03/21/24 Normal [facility] Urine Cultureon 03-14-2024 URC Escherichia coli Babbitt Count >100,000 Escherichia coli: REACTION Ampicillin Islt SHANA 8 Ampicillin+Sulbac Islt SHANA <=2 S ceFAZolin Islt SHANA <=4 S Cefepime Islt SHANA <=0.12 S cefTRIAXone Islt SHANA <=0.25 S Ciprofloxacin Islt SHANA <=0.25 S B-Lactamase Extended Susc Islt NEG Gentamicin Islt SHANA <=1 S Imipenem Islt SHANA <=0.25 S levoFLOXacin Islt SHANA <=0.12 S Nitrofurantoin Islt SHANA <=16 S Pip+Tazo Islt SHANA <=4 S Tobramycin Islt SHANA <=1 S TMP SMX Islt SHANA <=20 S Normal [facility] Comment on above: Performed By: #### L 500.2500, L100.0100 #### [facility] [address] [place], [place], [address] Basic Metabolic Profile (BMP )on 03-13-2024 BUN/CRE 19.4 RATIO Normal 03-09 [facility] Comment on above: Performed By: #### L 100.0100, L500.2500 #### [facility] [address] [place], [address] CA,Total 8.8 mg/dL Normal 8.5-10.1 [facility] Comment on above: Performed By: #### L 100.0100, L500.2500 #### [facility] [address] [place], [address] Chloride [Moles/Vol] 107 mmol/L Normal 98-107 [facility] Comment on above: Performed By: #### L 100.0100, L500.2500 #### [facility] [address] [place], [address] CO2 [Moles/Vol] 22.0 mmol/L Normal 21.0-32.0 [facility] Comment on above: Performed By: #### L 100.0100, L500.2500 #### [facility] [address] [place], [address] Creatinine [Mass/Vol] 2.17 mg/dL High 0.55-1.02 [facility] Comment on above: Result Comment: The validity of the calculated GFR GFRAA in patients over 70 years has not been determined. Clinical correlation is essential. Performed By: #### L 100.0100, L500.2500 #### [facility] [address] [place], [address] ECRCL 19.60 ml/min Normal [facility] Comment on above: Performed By: #### L 100.0100, L500.2500 #### [facility] [address] [place], [address] EST GFR - AA 28 mL/min Low >60 [facility] Comment on above: Result Comment: Afri can [place] GFR Calc Performed By: #### L 100.0100, L500.2500 #### [facility] [address] [place], [address] GAP 6 Normal 5-15 [facility] Comment on above: Performed By: #### L 100.0100, L500.2500 #### [facility] [address] [place], [address] GFR/1.73 sq M.predicted among non-blacks MDRD (S/P/Bld) [Vol rate/Area] 23 mL/min/{1.73_m2} Low >60 [facility] Comment on above: Result Comment: Non- GFR Calc Performed By: #### L 100.0100, L500.2500 #### [facility] [address] [place], [address] Glucose [Mass/Vol] 93 mg/dL Normal 74-106 [facility] Comment on above: Performed By: #### L 100.0100, L500.2500 #### [facility] [address] [place], [address] Potassium [Moles/Vol] 3.7 mmol/L Normal 3.5-5.1 [facility] Comment on above: Performed By: #### L 100.0100, L500.2500 #### [facility] [address] [place], [address] Sodium [Moles/Vol] 135 mmol/L Low 136-145 [facility] Comment on above: Performed By: #### L 100.0100, L500.2500 #### [facility] [address] [place], [address] Urea nitrogen [Mass/Vol] 42 mg/dL High 7-18 [facility] Comment on above: Performed By: #### L 100.0100, L500.2500 #### [facility] [address] [place], [address] CBC W/Diff, Automatedon 10-2 Absolute Lymph 1.51 X10 3/uL Normal 0.83-4.51 [facility] Comment on above: Performed By: #### L 100.0100, L500.2500 #### [facility] [address] [place], [address] Absolute Neut 7.5 X10 3/uL Normal 2.0-7.7 [facility] Comment on above: Performed By: #### L 100.0100, L500.2500 #### [facility] [address] [place], [address] Basophils/100 WBC (Bld) 0.3 % Normal 0-1 [facility] Comment on above: Performed By: #### L 100.0100, L500.2500 #### [facility] [address] [place], [address] Eosinophils/100 WBC (Bld) 0.5 % Normal 0-5 [facility] Comment on above: Performed By: #### L 100.0100, L500.2500 #### [facility] [address] [place], [address] Erythrocyte distribution width (RBC) [Ratio] 14.6 % Normal 11.6-14.6 [facility] Comment on above: Performed By: #### L 100.0100, L500.2500 #### [facility] [address] [place], [address] Hematocrit (Bld) [Volume fraction] 31.8 % Low 37-47 [facility] Comment on above: Performed By: #### L 100.0100, L500.2500 #### [facility] [address] [place], [address] Hemoglobin (Bld) [Mass/Vol] 10.2 g/dL Low 12.0-15.0 [facility] Comment on above: Performed By: #### L 100.0100, L500.2500 #### [facility] [address] [place], [address] IG% 0.900 Normal 0.0-0.9 [facility] Comment on above: Result Comment: IG% - Immature Granulocytes (promyelocytes, myelocytes and metamyelocytes) > 1% indicates that a LEFT SHIFT is Present. Performed By: #### L 100.0100, L500.2500 #### [facility] [address] [place], [address] Lymphocytes/100 WBC (Bld) 14.4 % Low 19-41 [facility] Comment on above: Performed By: #### L 100.0100, L500.2500 #### [facility] [address] [place], [address] MCH (RBC) [Entitic mass] 29.8 pg Normal 27.0-32.0 [facility] Comment on above: Performed By: #### L 100.0100, L500.2500 #### [facility] [address] [place], [address] MCHC (RBC) [Mass/Vol] 32.1 g/dL Normal 32-36 [facility] Comment on above: Performed By: #### L 100.0100, L500.2500 #### [facility] [address] [place], [address] MCV (RBC) [Entitic vol] 93.0 fL Normal 81-99 [facility] Comment on above: Performed By: #### L 100.0100, L500.2500 #### [facility] [address] [place], [address] Monocytes/100 WBC (Bld) 12.2 % High 0-10 [facility] Comment on above: Performed By: #### L 100.0100, L500.2500 #### [facility] [address] [place], [address] Neutrophils/100 WBC (Bld) 71.7 % High 47-70 [facility] Comment on above: Performed By: #### L 100.0100, L500.2500 #### [facility] [address] [place], [address] Nucleated RBC (Bld) [#/Vol] 0 10*3/uL Normal 0-5 [facility] Comment on above: Performed By: #### L 100.0100, L500.2500 #### [facility] [address] [place], [address] Platelet mean volume (Bld) [Entitic vol] 9.6 fL Normal 6.2-12.0 [facility] Comment on above: Performed By: #### L 100.0100, L500.2500 #### [facility] [address] [place], [address] Platelets (Bld) [#/Vol] 179 10*3/uL Normal 150-450 [facility] Comment on above: Performed By: #### L 100.0100, L500.2500 #### [facility] [address] [place], [address] RBC (Bld) [#/Vol] 3.42 10*6/uL Low 4.2-5.[address] [facility] Comment on above: Performed By: #### L 100.0100, L500.2500 #### [facility] [address] [place], [address] RDW SD 50.0 fl High 35.1-43.9 [facility] Comment on above: Performed By: #### L 100.0100, L500.2500 #### [facility] [address] [place], [address] WBC (Bld) [#/Vol] 10.5 10*3/uL Normal 4.4-11.[address] [facility] Comment on above: Performed By: #### L 100.0100, L500.2500 #### [facility] [address] [place], [address] Abdomen/Pelvis without Conto n 03-12-2024 Abdomen/Pelvis without Cont [facility] Imaging Services [address] [place] [address] Abdomen/Pelvis without Cont MR#: [id number] Acct: [id number] Name: GAYLE CHO Rep #: [id number] : 1950 F 73 From: Aletha Walsh PCP: Dr. Jessica Clark MD Status: ADM IN Study: Abdomen/Pelvis without Cont Date of Exam: 02/19 08/11 Exam# [id number] Ordering Dr: Steve Castanon DO [id number] EXAM: CT Abdomen And Pelvis W/O Contrast Injection FEVER X 2 DAYS,WEAKNESS,DECREASED APPETITE,FELL YESTERDAY,PT HAD LITHOTRIPSY 03-05-24 AND HAS RT URETERAL STENT IN PLACE,ELEVATED WBC HX:DM,HTN,CKD,KS,SKIN CANCER HISTORY: flank pain TECHNIQUE: Routine protocol CT abdomen and pelvis. IV Contrast: None.. Oral contrast: None. RADIATION DOSAGE (If Supplied By Facility): CTDIvol = ( 8.93 ) mGy, DLP = ( 394.84 ) mGycm Individualized dose optimization techniques were used for this CT. COMPARISON: CT abdomen and pelvis 02/13/2024. LIMITATIONS: None. FINDINGS: LOWER CHEST: Included lung bases are clear. LIVER: Grossly unremarkable. GALLBLADDER AND BILIARY TREE: Grossly unremarkable. PANCREAS: Grossly unremarkable. SPLEEN: Grossly unremarkable. ADRENAL GLANDS: Grossly unremarkable. KIDNEYS AND URETERS: Right ureteral stent in place with proximal end in the renal pelvis upper pole, distal end in the bladder, is new compared to prior, with mild hydronephrosis and perinephric and periureteral stranding. Small focus of air in the renal collecting system is likely due to procedure. Multiple calculi in right kidney. There is a 4 mm calculus in the renal pelvis immediately adjacent to the stent. Small hyperattenuating rounded structure likely hyperdense cyst in the right kidney, unchanged, no follow-up needed. No hydronephrosis on the left. PERITONEUM: No free air. No free fluid. BOWEL: No bowel obstruction. APPENDIX: Visualized and unremarkable. No evidence of acute appendicitis. VESSELS: Abdominal aorta is normal caliber. Extensive arterial calcifications. RETROPERITONEUM: Several prominent lymph nodes periaortic/aortocaval especially at the level of the right kidney increased compared to prior May BE reactive. REPRODUCTIVE ORGANS: Grossly unremarkable URINARY BLADDER: Mildly distended. Air in the bladder presumably related to recent procedure. ABDOMINAL WALL: Unremarkable. BONES: No acute abnormalities. Degenerative changes in the lumbar spine CT/Abdomen/Pelvis without Cont IMPRESSION: Interval placement of right ureteral stent with mild right hydronephrosis. Calculus in the proximal ureter adjacent to the stent. Air in the renal collecting system and bladder likely related to recent procedure. Cannot exclude superimposed infection. Retroperitoneal adenopathy increased likely reactive. Electronically Signed: Aletha Titus MD at 3:29 EDT , CC: Dr. Jessica Clark MD; Steve Castanon DO Interventional Pain Physician: Signed Normal [facility] Basic Metabolic Profile (BMP )on 03-12-2024 BUN/CRE 18.8 RATIO Normal 03-09 [facility] Comment on above: Performed By: #### L 500.2500, L100.0100 #### [facility] [address] [place], [address] CA,Total 8.6 mg/dL Normal 8.5-10.1 [facility] Comment on above: Performed By: #### L 500.2500, L100.0100 #### [facility] [address] [place], [address] Chloride [Moles/Vol] 105 mmol/L Normal 98-107 [facility] Comment on above: Performed By: #### L 500.2500, L100.0100 #### [facility] [address] [place], [address] CO2 [Moles/Vol] 25.0 mmol/L Normal 21.0-32.0 [facility] Comment on above: Performed By: #### L 500.2500, L100.0100 #### [facility] [address] [place], [address] Creatinine [Mass/Vol] 2.13 mg/dL High 0.55-1.02 [facility] Comment on above: Result Comment: The validity of the calculated GFR GFRAA in patients over 70 years has not been determined. Clinical correlation is essential. Performed By: #### L 500.2500, L100.0100 #### [facility] [address] [place], [address] ECRCL 19.97 ml/min Normal [facility] Comment on above: Performed By: #### L 500.2500, L100.0100 #### [facility] [address] [place], [address] EST GFR - AA 29 mL/min Low >60 [facility] Comment on above: Result Comment: Afri can [place] GFR Calc Performed By: #### L 500.2500, L100.0100 #### [facility] [address] [place], [address] GAP 5 Normal 5-15 [facility] Comment on above: Performed By: #### L 500.2500, L100.0100 #### [facility] [address] [place], [address] GFR/1.73 sq M.predicted among non-blacks MDRD (S/P/Bld) [Vol rate/Area] 24 mL/min/{1.73_m2} Low >60 [facility] Comment on above: Result Comment: Non- GFR Calc Performed By: #### L 500.2500, L100.0100 #### [facility] [address] [place], [address] Glucose [Mass/Vol] 116 mg/dL High 74-106 [facility] Comment on above: Result Comment: Fast ing Glucose result from 100 to 125 mg/dL suggests IMPAIRED HOMEOSTASIS per A.D.A. criteria. Performed By: #### L 500.2500, L100.0100 #### [facility] [address] [place], [address] Potassium [Moles/Vol] 4.5 mmol/L Normal 3.5-5.1 [facility] Comment on above: Performed By: #### L 500.2500, L100.0100 #### [facility] [address] [place], [address] Sodium [Moles/Vol] 134 mmol/L Low 136-145 [facility] Comment on above: Performed By: #### L 500.2500, L100.0100 #### [facility] [address] [place], [address] Urea nitrogen [Mass/Vol] 40 mg/dL High 7-18 [facility] Comment on above: Performed By: #### L 500.2500, L100.0100 #### [facility] [address] [place], [address] CBC W/Diff, Automatedon 10-2 PATH REV Reviewed Normal [facility] Comment on above: Result Comment: Neut rophilic leukocytosis. Clinical correlation necessary. Clay Torre M.D. 03/12/24 AMENDED REPORT 03/12/24 1407 PATH REV previously reported as: September ene Performed By: #### L 500.2500, L100.0100 #### [facility] [address] [place], [address] Absolute Lymph 1.17 X10 3/uL Normal 0.83-4.51 [facility] Comment on above: Performed By: #### L 500.2500, L100.0100 #### [facility] [address] [place], [address] Absolute Neut 13.2 X10 3/uL High 2.0-7.7 [facility] Comment on above: Performed By: #### L 500.2500, L100.0100 #### [facility] [address] [place], [address] Basophils/100 WBC (Bld) 0.3 % Normal 0-1 [facility] Comment on above: Performed By: #### L 500.2500, L100.0100 #### [facility] [address] [place], [address] Eosinophils/100 WBC (Bld) 0.1 % Normal 0-5 [facility] Comment on above: Performed By: #### L 500.2500, L100.0100 #### [facility] [address] [place], [address] Erythrocyte distribution width (RBC) [Ratio] 14.6 % Normal 11.6-14.6 [facility] Comment on above: Performed By: #### L 500.2500, L100.0100 #### [facility] [address] [place], [address] Hematocrit (Bld) [Volume fraction] 37.2 % Normal 37-47 [facility] Comment on above: Performed By: #### L 500.2500, L100.0100 #### [facility] [address] [place], [address] Hemoglobin (Bld) [Mass/Vol] 12.2 g/dL Normal 12.0-15.0 [facility] Comment on above: Performed By: #### L 500.2500, L100.0100 #### [facility] [address] [place], [address] IG% 0.900 Normal 0.0-0.9 [facility] Comment on above: Result Comment: IG% - Immature Granulocytes (promyelocytes, myelocytes and metamyelocytes) > 1% indicates that a LEFT SHIFT is Present. Performed By: #### L 500.2500, L100.0100 #### [facility] [address] [place], [address] Lymphocytes/100 WBC (Bld) 7.6 % Low 19-41 [facility] Comment on above: Performed By: #### L 500.2500, L100.0100 #### [facility] [address] [place], [address] MCH (RBC) [Entitic mass] 30.4 pg Normal 27.0-32.0 [facility] Comment on above: Performed By: #### L 500.2500, L100.0100 #### [facility] [address] [place], [address] MCHC (RBC) [Mass/Vol] 32.8 g/dL Normal 32-36 [facility] Comment on above: Performed By: #### L 500.2500, L100.0100 #### [facility] [address] [place], [address] MCV (RBC) [Entitic vol] 92.8 fL Normal 81-99 [facility] Comment on above: Performed By: #### L 500.2500, L100.0100 #### [facility] [address] [place], [address] Monocytes/100 WBC (Bld) 5.6 % Normal 0-10 [facility] Comment on above: Performed By: #### L 500.2500, L100.0100 #### [facility] [address] [place], [address] Neutrophils/100 WBC (Bld) 85.5 % High 47-70 [facility] Comment on above: Performed By: #### L 500.2500, L100.0100 #### [facility] [address] [place], [address] Nucleated RBC (Bld) [#/Vol] 0 10*3/uL Normal 0-5 [facility] Comment on above: Performed By: #### L 500.2500, L100.0100 #### [facility] [address] [place], [address] Platelet mean volume (Bld) [Entitic vol] 9.2 fL Normal 6.2-12.0 [facility] Comment on above: Performed By: #### L 500.2500, L100.0100 #### [facility] [address] [place], [address] Platelets (Bld) [#/Vol] 197 10*3/uL Normal 150-450 [facility] Comment on above: Performed By: #### L 500.2500, L100.0100 #### [facility] [address] [place], [address] RBC (Bld) [#/Vol] 4.01 10*6/uL Low 4.2-5.[address] [facility] Comment on above: Performed By: #### L 500.2500, L100.0100 #### [facility] [address] [place], [address] RDW SD 50.6 fl High 35.1-43.9 [facility] Comment on above: Performed By: #### L 500.2500, L100.0100 #### [facility] [address] [place], [address] WBC (Bld) [#/Vol] 15.4 10*3/uL High 4.4-11.[address] [facility] Comment on above: Performed By: #### L 500.2500, L100.0100 #### [facility] [address] [place], [place], [address] Chest PA and Lateralon 03-12 Chest PA and Lateral [facility] Imaging Services [address] [place] [address] Chest PA and Lateral MR#: [id number] Acct: [id number] Name: GAYLE CHO Rep #: [id number] : 1950 F 73 From: Aletha Walsh PCP: Dr. Jessica Clark MD Status: ADM IN Study: Chest PA and Lateral Date of Exam: 03/12/24 Exam# [id number] Ordering Dr: Steve Castanon DO [id number] INDICATION: fever EXAMINATION/TECHNIQUE: X-RAY - XR Chest 2 Views COMPARISON: Prior study dated: 08/12/2021 FINDINGS: LINES/DEVICES: None. LUNGS: No consolidation. No pneumothorax. MEDIASTINUM: Aorta is atherosclerotic. CARDIAC SILHOUETTE: Not enlarged. BONES AND SOFT TISSUES: No acute abnormalities. RAD/Chest PA and Lateral IMPRESSION: No evidence of active intrathoracic disease. Electronically Signed: Aletha Titus MD at 3:30 EDT , CC: Dr. Jessica Clark MD; Steve Castanon DO Interventional Pain Physician: Signed Normal [facility] Comprehensive Metabolic Prof ilon 03-12-2024 Albumin [Mass/Vol] 2.8 g/dL Low 3.2-5.0 [facility] Comment on above: Performed By: #### L 500.2500, L100.0100 #### [facility] [address] [place], [address] Albumin/Globulin [Mass ratio] 0.7 {ratio} Low 0.9-2.4 [facility] Comment on above: Performed By: #### L 500.2500, L100.0100 #### [facility] [address] [place], [address] ALK P 83 U/L Normal 45-117 [facility] Comment on above: Performed By: #### L 500.2500, L100.0100 #### [facility] [address] [place], [address] ALT [Catalytic activity/Vol] 11 U/L Low 13-56 [facility] Comment on above: Performed By: #### L 500.2500, L100.0100 #### [facility] [address] [place], [address] AST [Catalytic activity/Vol] 7 U/L Low 15-37 [facility] Comment on above: Performed By: #### L 500.2500, L100.0100 #### [facility] [address] [place], [address] Bilirubin [Mass/Vol] 1.20 mg/dL High 0.20-1.00 [facility] Comment on above: Result Comment: For patients on eltrombopag therapy, use of Dimension Rice TBIL is not recommended. Performed By: #### L 500.2500, L100.0100 #### [facility] [address] [place], [address] BUN/CRE 18.1 RATIO Normal 10-20 [facility] Comment on above: Performed By: #### L 500.2500, L100.0100 #### [facility] [address] [place], [address] CA,Total 9.0 mg/dL Normal 8.5-10.1 [facility] Comment on above: Performed By: #### L 500.2500, L100.0100 #### [facility] [address] [place], [address] Chloride [Moles/Vol] 101 mmol/L Normal 98-107 [facility] Comment on above: Performed By: #### L 500.2500, L100.0100 #### [facility] [address] [place], [address] CO2 [Moles/Vol] 23.0 mmol/L Normal 21.0-32.0 [facility] Comment on above: Performed By: #### L 500.2500, L100.0100 #### [facility] [address] [place], [address] Creatinine [Mass/Vol] 2.32 mg/dL High 0.55-1.02 [facility] Comment on above: Result Comment: The validity of the calculated GFR GFRAA in patients over 70 years has not been determined. Clinical correlation is essential. Performed By: #### L 500.2500, L100.0100 #### [facility] [address] [place], [address] ECRCL 18.17 ml/min Normal [facility] Comment on above: Performed By: #### L 500.2500, L100.0100 #### [facility] [address] [place], [address] EST GFR - AA 26 mL/min Low >60 [facility] Comment on above: Result Comment: Afri can [place] GFR Calc Performed By: #### L 500.2500, L100.0100 #### [facility] [address] [place], [address] GAP 8 Normal 5-15 [facility] Comment on above: Performed By: #### L 500.2500, L100.0100 #### [facility] [address] [place], [address] GFR/1.73 sq M.predicted among non-blacks MDRD (S/P/Bld) [Vol rate/Area] 22 mL/min/{1.73_m2} Low >60 [facility] Comment on above: Result Comment: Non- GFR Calc Performed By: #### L 500.2500, L100.0100 #### [facility] [address] [place], [address] Globulin (S) [Mass/Vol] 3.8 g/dL Normal 2.2-4.2 [facility] Comment on above: Performed By: #### L 500.2500, L100.0100 #### [facility] [address] [place], [address] Glucose [Mass/Vol] 149 mg/dL High 74-106 [facility] Comment on above: Result Comment: Fast ing Glucose result greater than or equal to 126 mg/dL suggests DIABETES MELLITUS per A.D.A. criteria. Performed By: #### L 500.2500, L100.0100 #### [facility] [address] [place], [address] Potassium [Moles/Vol] 4.2 mmol/L Normal 3.5-5.1 [facility] Comment on above: Performed By: #### L 500.2500, L100.0100 #### [facility] [address] [place], [address] Sodium [Moles/Vol] 133 mmol/L Low 136-145 [facility] Comment on above: Performed By: #### L 500.2500, L100.0100 #### [facility] [address] [place], [address] T PROT 6.6 g/dL Normal 6.4-8.2 [facility] Comment on above: Performed By: #### L 500.2500, L100.0100 #### [facility] [address] [place], [address] Urea nitrogen [Mass/Vol] 42 mg/dL High 7-18 [facility] Comment on above: Performed By: #### L 500.2500, L100.0100 #### [facility] [address] [place], [address] Consultation - Urologyon Consultation - Urology [facility] Medical Records Department [address] [place] [address] Consultation - Urology 03/12/24 0951 MR#: [id number] Acct: [id number] Name: GAYLE CHO Rep #: [id number] : 1950 73 From: Nirmal Zamora MD PCP: Dr. Jessica Clark MD Status:ADM IN Location: ICU ICU08-1 HPI Consult Data Date of Consult: 03/12/24 HPI Narrative Reason for Consultation: Possible infection HPI Narrative: GAYLE CHO, is a 73 F who presents to the hospital with pain a urine sample was done but she does have a stent in place with a thought that is possibly infected she did have an elevated white count she was admitted to the ICU for possible sepsis I saw her this morning this morning she did not look like in septic shock she looks fairly stable. She was post get the stent out on but with this possible infection went get this infection cleared before we remove the stent so we will have that the stent removed next week she can follow-up after discharge next week to have the stent removed she does have a lot of tiny fragments in the kidney after laser lithotripsy she had a huge stone that was lasered but I do not think any intervention at this point is necessary on my part post with the possible infection I would avoid any procedures. PENDING SALE TO [facility] Medical History Fatigue Syncope Fibromyalgia History of IBS Heartburn Shortness of breath on exertion History of pain when walking History of edema Wears dentures Wears glasses Cancer Anxiety Thyroid disease Restless legs Smoker CPAP (continuous positive airway pressure) dependence History of stress test History of echocardiogram Cardiology follow-up encounter Atrial fibrillation Myocardial infarct HLD (hyperlipidemia) Kidney stones CKD (chronic kidney disease) stage 3, GFR 30-59 ml/min Hypothyroidism Essential hypertension Presence of stent in coronary artery ( 10/29/12) Atherosclerotic heart disease of [place] coronary artery without angina pectoris Osteoarthritis Heart murmur High cholesterol Arthritis Facet arthropathy, lumbar History of chest pain Home Medications ???Medication ???Instructions ???Recorded ???Last Taken ???Type levothyroxine 100 mcg tablet 100 mcg PO DAILY THYROID 12/28/20 03/05/24 History carvedilol 25 mg tablet 25 mg PO BID bp 08/12/21 03/05/24 History ondansetron 4 mg disintegrating 4 mg PO Q8H PRN PRN Nausea #10 tabs 02/03/24 Unknown Rx tablet ergocalciferol (vitamin D2) 1,250 1,250 mcg PO Q7D 02/13/24 03/04/24 History mcg (50,000 unit) capsule losartan 100 mg tablet 50 mg PO BID 02/13/24 03/05/24 History aspirin 81 mg tablet,delayed 81 mg PO DAILY 02/26/24 02/26/24 History release (Adult Low Dose Aspirin) Allergy/AdvReac Type Severity Reaction Status Date / Time Penicillins Allergy Severe Rash Verified 03/11/24 22:41 Anesthetics - Amide Type - Allergy Swelling Verified 03/11/24 22:41 Select A Anesthetics - [place] Type- Allergy Swelling Verified 03/11/24 22:41 Parabens Iodinated Contrast Media Allergy Anaphylaxis Verified 03/11/24 22:41 Antihistamines - Alkylamine AdvReac Unknown heart Verified 03/11/24 22:41 racing enalapril AdvReac Unknown myalgias Verified 03/11/24 22:41 levothyroxine sodium (From AdvReac Unknown fatigue Verified 03/11/24 22:41 Synthroid) metoprolol (From Lopressor) AdvReac Unknown myalgias Verified 03/11/24 22:41 Family History Mother Heart disease Hypertension HLD (hyperlipidemia) Father Cancer Patient states spider cancer. Surgical History History of esophagogastroduodenoscopy (EGD) History of cardiac catheterization Hx of eye surgery History of cystoscopy History of tooth extraction History of D C History of tonsillectomy Presence of coronary angioplasty implant and graft ( 10/29/12) Social History household members: spouse Smoking Status: Heavy Smoker (>10/day) how long ago did patient quit smoking: Ongoing tobacco use since teenager, / ppd. alcohol intake: never substance use type: does not use caffeine: Yes Type: carbonated beverages, coffee and tea what type of physical activity do you participate in: none Lab / Micro Data 03/11/24 23:42 03/11/24 23:42 Labs: Laboratory Results - last 24 hr 03/11/24 23:42: WBC 18.0 H, RBC 4.08 L, Hgb 12.5, Hct 37.0, MCV 90.7, MCH 30.6, MCHC 33.8, RDW Std Deviation 48.0 H, RDW Coeff of [place] 14.6, Plt Count 201, MPV 9.4, Immature Gran % (Auto) 1.100 H, N eut % (Auto) 82.5 H, Lymph % (Auto) 6.4 L, [place] % (Auto) 9.4, Eos % (Auto) 0.4, Baso % (Auto) 0.2, A bsolute Neuts (auto) 14.9 H, Absolute L (more content not included)... Normal [facility] Emergency Department Summary on 03-12-2024 Emergency Department Summary [facility] Medical Records Department [address] [place] [address] Emergency Department Summary 03/12/24 MR#: [id number] Acct: [id number] Name: GAYLE CHO Rep #: [id number] : 1950 73 From: Steve Castanon DO PCP: Dr. Jessica Clark MD Status:DIS IN Location: [address] History of Present Illness Chief Complaint: General Illness Informant: patient and friend Narrative Narrative: Patient is a 73-year-old female with past medical history of hypertension hyperlipidemia and fibromyalgia. She states that roughly 1 week ago she had a stent placed secondary to multiple stones within her right kidney. She states she was sent home following the procedure and has been doing well but in the last 24 hours has developed increasing right sided pain with subjective fevers and chills and fatigue. With concern for developing infection she was brought in for evaluation [facility] Medical History Fatigue Syncope Fibromyalgia History of IBS Heartburn Shortness of breath on exertion History of pain when walking History of edema Wears dentures Wears glasses Cancer Anxiety Thyroid disease Restless legs Smoker CPAP (continuous positive airway pressure) dependence History of stress test History of echocardiogram Cardiology follow-up encounter Atrial fibrillation Myocardial infarct HLD (hyperlipidemia) Kidney stones CKD (chronic kidney disease) stage 3, GFR 30-59 ml/min Hypothyroidism Essential hypertension Presence of stent in coronary artery ( 10/29/12) Atherosclerotic heart disease of bad [place] band coronary artery without angina pectoris Osteoarthritis Heart murmur High cholesterol Arthritis Facet arthropathy, lumbar History of chest pain Home Medications ???Medication ???Instructions ???Recorded ???Last Taken ???Type levothyroxine 100 mcg tablet 100 mcg PO DAILY THYROID 12/28/20 03/05/24 History carvedilol 25 mg tablet 25 mg PO BID bp 08/12/21 03/05/24 History ondansetron 4 mg disintegrating 4 mg PO Q8H PRN PRN Nausea #10 tabs 02/03/24 Unknown Rx tablet ergocalciferol (vitamin D2) 1,250 1,250 mcg PO Q7D 02/13/24 03/04/24 History mcg (50,000 unit) capsule aspirin 81 mg tablet,delayed 81 mg PO DAILY 02/26/24 02/26/24 History release (Adult Low Dose Aspirin) amlodipine 5 mg tablet 5 mg PO DAILY #30 tabs 03/14/24 Unknown Rx levofloxacin 500 mg tablet 500 mg PO .q48 #4 tabs 03/14/24 Unknown Rx Allergy/AdvReac Type Severity Reaction Status Date / Time Penicillins Allergy Severe Rash Verified 03/11/24 22:41 Anesthetics - Amide Type - Allergy Swelling Verified 03/11/24 22:41 Select A Anesthetics - Nubia Type- Allergy Swelling Verified 03/11/24 22:41 Parabens Iodinated Contrast Media Allergy Anaphylaxis Verified 03/11/24 22:41 Antihistamines - Alkylamine AdvReac Unknown heart Verified 03/11/24 22:41 racing enalapril AdvReac Unknown myalgias Verified 03/11/24 22:41 levothyroxine sodium (From AdvReac Unknown fatigue Verified 03/11/24 22:41 Synthroid) metoprolol (From Lopressor) AdvReac Unknown myalgias Verified 03/11/24 22:41 Family History Mother Heart disease Hypertension HLD (hyperlipidemia) Father Cancer Patient states spider cancer. Surgical History History of esophagogastroduodenoscopy (EGD) History of cardiac catheterization Hx of eye surgery History of cystoscopy History of tooth extraction History of D C History of tonsillectomy Presence of coronary angioplasty implant and graft ( 10/29/12) Social History household members: spouse Smoking Status: Heavy Smoker (>10/day) how long ago did patient quit smoking: Ongoing tobacco use since teenager, 1 ppd. alcohol intake: never substance use type: does not use caffeine: Yes Type: carbonated beverages, coffee and tea what type of physical activity do you participate in: none ROS ROS ED Constitutional Constitutional ED: Reports chills, fever(s) and subjective Eyes Eyes: Denies blurry vision or change in vision ENT ENT ED: Denies rhinorrhea or sore throat Cardiovascular Cardiovascular: Denies chest pain Respiratory/Chest Respiratory/Chest: Denies cough or dyspnea Gastrointestinal Gastrointestinal: Reports abdominal pain and nausea; Denies diarrhea or vomiting Genitourinary Genitourinary ED: Reports dysuria Musculoskeletal Musculoskeletal: Reports back pain and myalgias Integumentary Denies rash Neurologic Neurologic: Reports weakness; Denies headache(s) Hematologic/Lymphatic Hematologic/Lymphatic: Denies easy bleeding or easy bruising EXAM Physical Exam Const (more content not included)... Normal [facility] H AND P Exam - [facility] 03-12-2024 H&P Exam - Hospitalist [facility] Medical Records Department [address] [place] [address] H P Exam - Hospitalist 03/12/24 0307 MR#: [id number] Acct: [id number] Name: GAYLE CHO Rep #: [id number] : 1950 73 From: Donnell Savage DO PCP: Dr. Jessica Clark MD Status:ADM IN Location: ICU ICU08-1 HPI - General General Date of Admission: 03/12/24 Date of Service: 03/12/24 Chief Complaint: Fever and Generalized Weakness. HPI Narrative GAYLE CHO, is a 73 F with a past medical history of essential hypertension, hyperlipidemia, hypothyroidism, overweight; with BMI of 29.8 this admission, DC; non compliant with CPAP, history of tobacco abuse, DM-2; of unknown control, CAD; s/p stents (2011 2012), history of atrial fibrillation, history of syncope, history of COVID-19 pneumonia, history of skin cancer, IBS, RLS, OA; with widespread somatic dysfunction involving spine and pelvis, CKD; stage III and very recent history of multiple large ( 15 mm, 10 mm and 7 mm) Right renal calculi; s/p cystoscopy with Right ureteral stent placement and thulium laser lithotripsy by Dr. Zamora of urology one week ago who presents to [facility] ER complaining of fever and generalized weakness. Ms. Cho reports her symptoms began approximately 1 day after her procedure with the gradual-onset of fever and worsening generalized weakness. She states she had initially improved after stent placement and was doing relatively well and then has progressively worsened over the past 6 days to the point where she fell due to her worsening generalized weakness and fatigue. She also admits to spiking a low-grade temperature of 100 ???F and she went on to state that her urologist thought she may have had an infected cyst in her right kidney. There was no report of nausea, vomiting, diarrhea, constipation, chest pain or SOB. In the ER she was noted to have severe leukocytosis of 18K present on admission with positive left shift of 1.1% immature granulocytes and elevated procalcitonin level of 4.09 ng/mL consistent with suspected Sepsis with confirmatory urinalysis positive for acute cystitis; with microscopic hematuria along with additional laboratory evidence of EDITH; with elevated serum creatinine of 2.32 mg/dL and BUN of 42 mg/dL present on admission (up from her baseline serum creatinine of 1.38 mg/dL and BUN of 18 mg/dL) plus corroborating CT evidence of Right hydronephrosis in spite of recent ureteral stent placement with air in the renal collecting system and bladder likely related to recent procedure with superimposed infection strongly suspected along with increased retroperitoneal adenopathy that is likely reactive in nature. She was then admitted to the ICU for treatment under the sepsis protocol for ongoing care for stay that is expected to extend beyond 2 midnights. PENDING SALE TO [facility] Medical History Fatigue Syncope Fibromyalgia History of IBS Heartburn Shortness of breath on exertion History of pain when walking History of edema Wears dentures Wears glasses Cancer Anxiety Thyroid disease Restless legs Smoker CPAP (continuous positive airway pressure) dependence History of stress test History of echocardiogram Cardiology follow-up encounter Atrial fibrillation Myocardial infarct HLD (hyperlipidemia) Kidney stones CKD (chronic kidney disease) stage 3, GFR 30-59 ml/min Hypothyroidism Essential hypertension Presence of stent in coronary artery ( 10/29/12) Atherosclerotic heart disease of [place] coronary artery without angina pectoris Osteoarthritis Heart murmur High cholesterol Arthritis Facet arthropathy, lumbar History of chest pain Home Medications ???Medication ???Instructions ???Recorded ???Last Taken ???Type levothyroxine 100 mcg tablet 100 mcg PO DAILY THYROID 12/28/20 03/05/24 History carvedilol 25 mg tablet 25 mg PO BID bp 08/12/21 03/05/24 History ondansetron 4 mg disintegrating 4 mg PO Q8H PRN PRN Nausea #10 tabs 02/03/24 Unknown Rx tablet ergocalciferol (vitamin D2) 1,250 1,250 mcg PO Q7D 02/13/24 03/04/24 History mcg (50,000 unit) capsule losartan 100 mg tablet 50 mg PO BID 02/13/24 03/05/24 History aspirin 81 mg tablet,delayed 81 mg PO DAILY 02/26/24 02/26/24 History release (Adult Low Dose Aspirin) Allergy/AdvReac Type Severity Reaction Status Date / Time Penicillins Allergy Severe Rash Verified 03/11/24 22:41 Anesthetics - Amide Type - Allergy Swelling Verified 03/11/24 22:41 Select A Anesthetics - Nubia Type- Allergy Swelling Verified 03/11/24 22:41 Parabens Iodinated Contrast Media Allergy Anaphylaxis Verified 03/11/24 22:41 Antihistamines - Alkylamine AdvReac Unknown heart Verified 03/11/24 22:41 racing enalapril AdvReac Unknown myalgias Verified 03/11/24 22: (more content not included)... Normal [facility] Lactic Acidon 03-12-2024 Lactate [Moles/Vol] 0.9 mmol/L Normal 0.4-1.[address] [facility] Comment on above: Order Comment: Comme nts: if result >2, system reflex orders 2nd test @ 4hrs Y Performed By: #### L 503.6005 #### [facility] [address] [place], [address] Lactate [Moles/Vol] 0.9 mmol/L Normal 0.4-1.[address] [facility] Comment on above: Order Comment: Y Performed By: #### L 503.6005 #### [facility] [address] [place], [address] M100.678on 03-12-2024 M100.678 Pending SARS-CoV-2 (COVID 19) Negative INFLUENZA A Negative INFLUENZA B Negative RSV PCR Negative Normal [facility] Comment on above: Performed By: #### L 500.2500, L100.0100 #### [facility] [address] [place], [address] Magnesiumon 03-12-2024 Magnesium [Mass/Vol] 1.9 mg/dL Normal 1.6-2.6 [facility] Comment on above: Performed By: #### L 501.2300, L501.5200, L501.9520 #### [facility] [address] [place], [address] Phosphoruson 03-12-2024 Phosphate [Mass/Vol] 3.0 mg/dL Normal 2.5-4.9 [facility] Comment on above: Performed By: #### L 501.2300, L501.5200, L501.9520 #### [facility] [address] [place], [address] Procalcitoninon 03-12-2024 Procalcitonin 4.09 ng/mL High 0.00-0.09 [facility] Comment on above: Result Comment: A procalcitonin (PCT) level above 2.0 ng/mL on the first day of ICU admission is associated with a high risk for progression to severe sepsis and/or septic shock. A PCT level below 0.5 ng/mL on the first day of ICU admission is associated with a low risk for progression to severe and/or septic shock. Note: Concentrations <0.5 ng/mL do not exclude an infection on account of localized infections (without systemic signs) which can be associated with such low concentrations, or a systemic infection in its initial stages (<6 hours). Furthermore, increased procalcitonin can occur without infection. PCT concentrations between 0.5 and 2.0 ng/mL should be interpreted taking into account the patient's history. It is recommended to retest PCT within 6-24 hours if any concentrations <2 ng/mL are obtained. Performed By: #### L 500.2500, L100.0100 #### [facility] [address] [place], [address] Thyroid Stim Hormone (TSH)on 03-12-2024 TSH 0.445 uIU/mL Normal 0.358-3.74 0 [facility] Comment on above: Performed By: #### L 501.2300, L501.5200, L501.9520 #### [facility] [address] [place], [address] Urinalysis, Completeon 03-12 BACTERIA 3+ /hpf Normal None Seen [facility] Comment on above: Order Comment: COLOR OF URINE MAY AFFECT DIPSTICK RESULTS. CUSTOMER SALES ADVISOR TO SPECIFY Performed By: #### L 400.0001 #### [facility] [address] [place], [address] RBC > 100 SEEN Normal 0-5 [facility] Comment on above: Order Comment: COLOR OF URINE MAY AFFECT DIPSTICK RESULTS. CUSTOMER SALES ADVISOR TO SPECIFY Performed By: #### L 400.0001 #### [facility] [address] [place], [address] WBC 50-100 SEEN Normal 0-5 [facility] Comment on above: Order Comment: COLOR OF URINE MAY AFFECT DIPSTICK RESULTS. CUSTOMER SALES ADVISOR TO SPECIFY Performed By: #### L 400.0001 #### [facility] [address] [place], [address] EPI,SQUAMOUS 0 SEEN Normal 5-10 [facility] Comment on above: Order Comment: COLOR OF URINE MAY AFFECT DIPSTICK RESULTS. CUSTOMER SALES ADVISOR TO SPECIFY Performed By: #### L 400.0001 #### [facility] [address] [place], [address] Mucus Ql (Urine sed) 0 SEEN Normal [facility] Comment on above: Order Comment: COLOR OF URINE MAY AFFECT DIPSTICK RESULTS. CUSTOMER SALES ADVISOR TO SPECIFY Performed By: #### L 400.0001 #### [facility] [address] [place], [address] Discharge Instructionon 02-18 Discharge Instruction [facility] Medical Records Department [address] [place] [address] Instructions for Home/Discharge Instructions 03/05/24 0836 MR#: [id number] Acct: [id number] Name: GAYLE CHO Rep #: [id number] : 1950 73 From: Nirmal Zamora MD PCP: Dr. Jessica Clark MD Status:REG [facility] Discharge Instructions Diet Discharge Diet: No restrictions Activity Discharge Activity: Return to Normal Activity and May Not Drive (while taking narcotic pain medications.) Dressing / Incision Call your doctor if you observe: Fever of 101 or Higher Follow Up Care Please Follow Up With: Nirmal Zamora MD When: Call [phone] for an appointment Test Results: Test results from this visit will be discussed in further detail at your follow-up appointment, if applicable. Discharge Plan Admission Attending Provider: Nirmal Zamora Primary Care Provider: Jessica Clark Instructions Print Language: Occitan Discharge Orders/Prescriptions Prescriptions: No Action levothyroxine 100 mcg tablet 100 mcg PO DAILY carvedilol 25 mg tablet 25 mg PO BID ergocalciferol (vitamin D2) 1,250 mcg (50,000 unit) capsule 1,250 mcg PO Q7D losartan 100 mg tablet 50 mg PO BID cephalexin 500 mg capsule 500 mg PO Q6 Qty: 28 0RF aspirin [Adult Low Dose Aspirin] 81 mg tablet,delayed release (DR/EC) 81 mg PO DAILY ondansetron 4 mg tablet,disintegrating 4 mg PO Q8H PRN PRN (Reason: Nausea) Qty: 10 0RF Referrals / Follow Up: Jessica Clark MD [Primary Care Provider] - Disposition Disposition (needs filled in before D/C Order can be placed): Home, Self Care 03/05/24 0836 Nirmal Zamora MD CC: Dr. Jessica Clark MD Signed [facility] MR/POSTOP.[facility] 03-05-2024 MR/POSTOP.[facility] Medical Records Department [address] [place] [address] Anesthesia Postop Eval I 03/05/24 1219 MR#: [id number] Acct: [id number] Name: GAYLE CHO Rep #: [id number] : 1950 73 From: Cayetano Matos CRNA PCP: Dr. Jessica Clark MD Status:REG SD Y Race: C Location: [place] [address] Anesthesia: Postop Eval I Current Vital Signs Temperature: 97.2 F Pulse Rate: 60 Blood Pressure: 213/84 (Similar to baseline) Respiratory Rate: 16 Pulse Ox: 94 Oxygen Delivery Method: Room Air Assessment Airway patent: Yes Spontaneous unlabored respirations: Yes Mental status: Awake and Calm nausea: No Vomiting: No Anesthesia Complication: No Fluid Hydration Crystalloid volume administer (ml): 1,000 Total IV fluid infused: 1,000 Progress Note Anesthesia document: Postop Eval 1 completed: Yes 03/05/24 1220 Date Cayetano Matos DIRECTOR OF ELEMENTARY EDUCATION Cosigner Signature: Date CC: Signed Normal [facility] MR/[id number] 03-05-2024 MR/POSTOPAN2 [facility] Medical Records Department [address] [place] [address] Anesthesia Postop Eval II 03/05/24 1735 MR#: [id number] Acct: [id number] Name: GAYLE CHO Rep #: [id number] : 1950 73 From: Bala Lacey MD PCP: Dr. Jessica Clark MD Status:[facility] Y Race: C Location: [facility] Anesthesia Postop Eval I Sum Postop Eval Completion status Anesthesia document: Postop Eval 1 completed: Yes Anesthesia Postop Eval I Summary Anesthesia Postop Eval I Summary: Anesthesia Postop Eval I: Assessment Summary Airway patent Yes 03/05/24 12:20 DIRECTOR OF ELEMENTARY EDUCATION.[email or web address] Spontaneous unlabored Yes 03/05/24 12:20 DIRECTOR OF ELEMENTARY EDUCATION.[email or web address] respirations Mental status Awake,Calm 03/05/24 12:20 DIRECTOR OF ELEMENTARY EDUCATION.JBLOU nausea No 03/05/24 12:20 DIRECTOR OF ELEMENTARY EDUCATION.[email or web address] Vomiting No 03/05/24 12:20 DIRECTOR OF ELEMENTARY EDUCATION.JBLOU Anesthesia Postop Eval I: Fluid Summary Crystalloid volume administer 1,000 03/05/24 12:20 DIRECTOR OF ELEMENTARY EDUCATION.JBLOU (ml) Colloids volume administered ( ml) Blood Product volume administered (ml) Total IV fluid infused 1,000 03/05/24 12:20 DIRECTOR OF ELEMENTARY EDUCATION.JBLOU Anesthesia Postop Eval I: Summary Notes Anesthesia Complication No 03/05/24 12:20 DIRECTOR OF ELEMENTARY EDUCATION.JBLOU Anesthesia Complication Comment: Post-operative progress note Anesthesia: Postop Eval II Evaluation Mental status: Awake and Calm Pain Level: 1 nausea: No Vomiting: No Complications Anesthesia Complication: No 03/05/24 1735 Date Bala Lacey MD Cosigner Signature: Date CC: Signed Normal [facility] Operative Reporton 4 Operative Report [facility] Medical Records Department [address] [place] [address] Operative Report 03/05/24 1017 MR#: [id number] Acct: [id number] Name: GAYLE CHO Rep #: [id number] : 1950 73 From: Nirmal Zamora MD PCP: Dr. Jessica Clark MD Status:[facility] Location: [place] [address] Report of Operation Date of Procedure: 03/05/24 Pre-Operative Diagnosis: Multiple large stones in the right kidney measuring 15 mm 10 mm and 7 mm. Post-Operative Diagnosis: The same Surgery/Procedure Performed:: Cystoscopy, right ureteroscopy laser lithotripsy of multiple stones and right stent placement Description of Surgical Findings:: Indication is a 73-year-old female who has multiple stones in the right kidney she is also been getting recurrent bladder infections suspicious that the stones could be the source of these infections since her causing obstruction of the upper part of the kidney and the stones are significant in size and burden so today organ to proceed with laser lithotripsy of the stones using the thulium laser. Patient was made aware that it is possible I may not be able to get all the stones, there is a risk of infection and the risk of bleeding also risk that she may need multiple procedures to take care of these kidney stones. Her right side was marked consent was given and we proceeded. Findings, successful lasering and complete treatment of all major stones in the right kidney multiple stones are treated into small dust. Patient was taken back to the operating room after induction of anesthesia I by MÓNICA Matos the patient was placed supine on the table and then placed in dorsal lithotomy position. Legs were placed in stirrups making sure to pad all the pressure points. Then the urethra and vaginal area and perineum was prepped and draped in usual sterile fashion. I went into the bladder. On inspection she was found to have a significant cystocele with a significant drop bladder because of this I had a really tip the cystoscope fairly high up as an angle to see the trigone and then I could identify the right ureteral orifice. Then putting some pressure from the inside of the vaginal vault I pushed up on the bladder and I could see the right ureteral orifice and I cannulated this with a 0.038 Glidewire advanced the Glidewire up to the kidney and then over the Glidewire I used a 10 Grenadian dual-lumen catheter advanced the dual-lumen catheter up the ureter and then put the second Glidewire up into the kidney to secure access. Once both wires were in place the one wire was a working wire and the second wire was a safety wire. The safety wire was left in place and over the working wire went in with a 7.5 Grenadian flexible ureteroscope and I was able to get up the ureter fairly easily I then worked my way all the way to the kidney inspected the kidney identified that there was a large burden of stones in the upper pole the kidney I first started in the stone that was about 10 mm in size in the upper pole calyx this was lasered completely using the thulium laser and the settings were 0.4 J and 100 Hz total carrera of 40 W I left the settings for the rest of the case at the same setting I then was able to then go to the larger stone that was at 15 mm in size in the upper pole this was a more difficult angle after the stone was starting to become embedded in the kidney itself there was some tissue growing over the stone I had to laser the tissue a little bit and then lasered the stone completely into small pieces it took a long time to laser the stone finding with a stone was lasered and I worked my way into the renal pelvis I then went down to the lower pole pelvis and I found a collection of stones lower pole pelvis these were lasered completely. I then went to the midpole pelvis and midpole calyx and found another collection of small stones of these were lasered completely and then finally went to the upper pole midpole pelvis and also lasered another collection of stones in the little tiny pieces. After all the stones were successfully lasered I then worked my way down the ureter no major fragments were seen along the course of the ureter I then put a Glidewire through the ureteroscope and then backed out the ureteroscope. Over the Glidewire I tried to place a stent but the stent coiled in the bladder so then went back in with the cystoscope put a new wire up into the kidney and over the wire then I placed a stent it was a 6 Grenadian by 26 cm stent and the stent coiled in the kidney and the bladder in good position left the string of the stent but cut the string short to prevent extraction. Patient's bladder was drained her anesthetic was reversed and she was taken back to the PACU in good condition plan to see her back in 1 week for cystoscopy stent removal in the office Surgeon: Nirmal Zamora Type of Anesthesia: General Anesthesiologi (more content not included)... Normal [facility] Urine Cultureon 02-14-2024 URC Culture exhibits no growth. Normal [facility] Comment on above: Performed By: #### L 500.2500, L100.0100 #### [facility] [address] [place], [address] Abdomen/Pelvis without Conto n 02-13-2024 Abdomen/Pelvis without Cont [facility] Imaging Services [address] [place] [address] Abdomen/Pelvis without Cont MR#: [id number] Acct: [id number] Name: GAYLE CHO Rep #: [id number] : 1950 F 73 From: Oliver Sr DO PCP: Dr. Jessica Clark MD Status: REG ER Study: Abdomen/Pelvis without Cont Date of Exam: 01/20 10/11 Exam# [id number] Ordering Dr: Brandan Millan DO [id number] STUDY: CT ABDOMEN AND PELVIS WITHOUT CONTRAST REASON FOR EXAM: Female, 73 years old. Right flank pain RADIATION DOSAGE (If Supplied By Facility): CTDIvol = ( 10.54 ) mGy, DLP = ( 473.83 ) mGycm TECHNIQUE: Transaxial images were obtained from the dome of the diaphragm to the symphysis pubis without oral contrast, and without intravenous contrast. Sagittal and coronal images were reconstructed. Individualized dose optimization techniques were used for this CT. COMPARISON: None. FINDINGS: The visualized lung bases are unremarkable. The visualized portions of the heart are within normal limits. Normal liver. Normal gallbladder and extrahepatic biliary system. Normal spleen. Normal pancreas. Normal bilateral adrenal glands. Up to 1.5 cm stones in the right kidney. Probable 1.1 cm hyperdense cyst of the right kidney. 2 mm stone in the left kidney. Normal visualized stomach. Normal small intestine. Normal colon. The appendix is visualized and appears normal. Calcified abdominal aorta. Normal inferior vena cava. Normal retroperitoneum. Normal urinary bladder. Normal abdominal wall. Normal osseous structures. CT/Abdomen/Pelvis without Cont IMPRESSION: Bilateral renal calculi. No hydronephrosis. Electronically Signed: Oliver Sr DO at 18:06 EDT Reading Location ID and State: [place] [facility] [place] Tel [phone], Service support , CC: Dr. Jessica Clark MD; Dr. Brandan Millan DO Interventional Pain Physician: Signed Normal [facility] CBC W/Diff, Automatedon - Absolute Lymph 3.17 X10 3/uL Normal 0.83-4.51 [facility] Comment on above: Performed By: #### L 500.2500, L100.0100 #### [facility] [address] [place], [place], [address] Absolute Neut 6.3 X10 3/uL Normal 2.0-7.7 [facility] Comment on above: Performed By: #### L 500.2500, L100.0100 #### [facility] [address] [place], [address] Basophils/100 WBC (Bld) 0.8 % Normal 0-1 [facility] Comment on above: Performed By: #### L 500.2500, L100.0100 #### [facility] [address] [place], [address] Eosinophils/100 WBC (Bld) 1.2 % Normal 0-5 [facility] Comment on above: Performed By: #### L 500.2500, L100.0100 #### [facility] [address] [place], [address] Erythrocyte distribution width (RBC) [Ratio] 13.9 % Normal 11.6-14.6 [facility] Comment on above: Performed By: #### L 500.2500, L100.0100 #### [facility] [address] [place], [address] Hematocrit (Bld) [Volume fraction] 44.4 % Normal 37-47 [facility] Comment on above: Performed By: #### L 500.2500, L100.0100 #### [facility] [address] [place], [address] Hemoglobin (Bld) [Mass/Vol] 14.5 g/dL Normal 12.0-15.0 [facility] Comment on above: Performed By: #### L 500.2500, L100.0100 #### [facility] [address] [place], [address] IG% 0.500 Normal 0.0-0.9 [facility] Comment on above: Result Comment: IG% - Immature Granulocytes (promyelocytes, myelocytes and metamyelocytes) > 1% indicates that a LEFT SHIFT is Present. Performed By: #### L 500.2500, L100.0100 #### [facility] [address] [place], [address] Lymphocytes/100 WBC (Bld) 30.1 % Normal 19-41 [facility] Comment on above: Performed By: #### L 500.2500, L100.0100 #### [facility] [address] [place], [address] MCH (RBC) [Entitic mass] 29.6 pg Normal 27.0-32.0 [facility] Comment on above: Performed By: #### L 500.2500, L100.0100 #### [facility] [address] [place], [address] MCHC (RBC) [Mass/Vol] 32.7 g/dL Normal 32-36 [facility] Comment on above: Performed By: #### L 500.2500, L100.0100 #### [facility] [address] [place], [address] MCV (RBC) [Entitic vol] 90.6 fL Normal 81-99 [facility] Comment on above: Performed By: #### L 500.2500, L100.0100 #### [facility] [address] [place], [address] Monocytes/100 WBC (Bld) 7.2 % Normal 0-10 [facility] Comment on above: Performed By: #### L 500.2500, L100.0100 #### [facility] [address] [place], [address] Neutrophils/100 WBC (Bld) 60.2 % Normal 47-70 [facility] Comment on above: Performed By: #### L 500.2500, L100.0100 #### [facility] [address] [place], [address] Nucleated RBC (Bld) [#/Vol] 0 10*3/uL Normal 0-5 [facility] Comment on above: Performed By: #### L 500.2500, L100.0100 #### [facility] [address] [place], [address] Platelet mean volume (Bld) [Entitic vol] 9.1 fL Normal 6.2-12.0 [facility] Comment on above: Performed By: #### L 500.2500, L100.0100 #### [facility] [address] [place], [address] Platelets (Bld) [#/Vol] 219 10*3/uL Normal 150-450 [facility] Comment on above: Performed By: #### L 500.2500, L100.0100 #### [facility] [address] [place], [address] RBC (Bld) [#/Vol] 4.90 10*6/uL Normal 4.2-5.[address] [facility] Comment on above: Performed By: #### L 500.2500, L100.0100 #### [facility] [address] [place], [address] RDW SD 46.4 fl High 35.1-43.9 [facility] Comment on above: Performed By: #### L 500.2500, L100.0100 #### [facility] [address] [place], [address] WBC (Bld) [#/Vol] 10.5 10*3/uL Normal 4.4-11.[address] [facility] Comment on above: Performed By: #### L 500.2500, L100.0100 #### [facility] [address] [place], [address] Comprehensive Metabolic Prof ilon 02-13-2024 Albumin [Mass/Vol] 3.6 g/dL Normal 3.2-5.0 [facility] Comment on above: Performed By: #### L 500.2500, L100.0100 #### [facility] [address] [place], [address] Albumin/Globulin [Mass ratio] 0.9 {ratio} Normal 0.9-2.4 [facility] Comment on above: Performed By: #### L 500.2500, L100.0100 #### [facility] [address] [place], [address] ALK P 102 U/L Normal 45-117 [facility] Comment on above: Performed By: #### L 500.2500, L100.0100 #### [facility] [address] [place], [address] ALT [Catalytic activity/Vol] 19 U/L Normal 13-56 [facility] Comment on above: Performed By: #### L 500.2500, L100.0100 #### [facility] [address] [place], [address] AST [Catalytic activity/Vol] 15 U/L Normal 15-37 [facility] Comment on above: Result Comment: Mode rate Hemolysis, Result may be falsely increased. Performed By: #### L 500.2500, L100.0100 #### [facility] [address] [place], [address] Bilirubin [Mass/Vol] 0.80 mg/dL Normal 0.20-1.00 [facility] Comment on above: Result Comment: For patients on eltrombopag therapy, use of Dimension Rice TBIL is not recommended. Performed By: #### L 500.2500, L100.0100 #### [facility] [address] [place], [address] BUN/CRE 13.0 RATIO Normal 10-20 [facility] Comment on above: Performed By: #### L 500.2500, L100.0100 #### [facility] [address] [place], [address] CA,Total 9.7 mg/dL Normal 8.5-10.1 [facility] Comment on above: Performed By: #### L 500.2500, L100.0100 #### [facility] [address] [place], [address] Chloride [Moles/Vol] 105 mmol/L Normal 98-107 [facility] Comment on above: Performed By: #### L 500.2500, L100.0100 #### [facility] [address] [place], [address] CO2 [Moles/Vol] 25.0 mmol/L Normal 21.0-32.0 [facility] Comment on above: Performed By: #### L 500.2500, L100.0100 #### [facility] [address] [place], [address] Creatinine [Mass/Vol] 1.38 mg/dL High 0.55-1.02 [facility] Comment on above: Result Comment: The validity of the calculated GFR GFRAA in patients over 70 years has not been determined. Clinical correlation is essential. Performed By: #### L 500.2500, L100.0100 #### [facility] [address] [place], [address] ECRCL 30.62 ml/min Normal [facility] Comment on above: Performed By: #### L 500.2500, L100.0100 #### [facility] [address] [place], [address] EST GFR - AA 48 mL/min Low >60 [facility] Comment on above: Result Comment: Afri can [place] GFR Calc Performed By: #### L 500.2500, L100.0100 #### [facility] [address] [place], [address] GAP 5 Normal 5-15 [facility] Comment on above: Performed By: #### L 500.2500, L100.0100 #### [facility] [address] [place], [address] GFR/1.73 sq M.predicted among non-blacks MDRD (S/P/Bld) [Vol rate/Area] 40 mL/min/{1.73_m2} Low >60 [facility] Comment on above: Result Comment: Non- GFR Calc Performed By: #### L 500.2500, L100.0100 #### [facility] [address] [place], [address] Globulin (S) [Mass/Vol] 4.0 g/dL Normal 2.2-4.2 [facility] Comment on above: Performed By: #### L 500.2500, L100.0100 #### [facility] [address] [place], [address] Glucose [Mass/Vol] 126 mg/dL High 74-106 [facility] Comment on above: Result Comment: Fast ing Glucose result greater than or equal to 126 mg/dL suggests DIABETES MELLITUS per A.D.A. criteria. Performed By: #### L 500.2500, L100.0100 #### [facility] [address] [place], [address] Potassium [Moles/Vol] 4.1 mmol/L Normal 3.5-5.1 [facility] Comment on above: Result Comment: Mode rate Hemolysis, Result may be falsely increased. Performed By: #### L 500.2500, L100.0100 #### [facility] [address] [place], [address] Sodium [Moles/Vol] 135 mmol/L Low 136-145 [facility] Comment on above: Performed By: #### L 500.2500, L100.0100 #### [facility] [address] [place], [address] T PROT 7.6 g/dL Normal 6.4-8.2 [facility] Comment on above: Performed By: #### L 500.2500, L100.0100 #### [facility] [address] [place], [address] Urea nitrogen [Mass/Vol] 18 mg/dL Normal 7-18 [facility] Comment on above: Performed By: #### L 500.2500, L100.0100 #### [facility] [address] [place], [address] Emergency Department Summary on 02-13-2024 Emergency Department Summary [facility] Medical Records Department [address] [place] [address] Emergency Department Summary 02/13/24 MR#: [id number] Acct: [id number] Name: GAYLE CHO Rep #: [id number] : 1950 73 From: Brandan Millan DO PCP: Dr. Jessica Clark MD Status:DEP ER Location: ED HPI History of Present Illness Chief Complaint: Flank Pain Informant: patient Onset/Context/Timing Onset: Weeks (1-2) Context: Gradual Onset Timing: Continuous Quality: Aching Location: Right flank and right lower abdomen Worsened by: Certain movements Relieved by: Nothing Narrative Narrative: Patient presents with right flank pain and right lower abdominal pain that has been getting progressively worse over the past 1 to 2 weeks. Patient describes her pain as dull and aching. Patient states it is mainly over the right flank and right lower abdomen. Patient states it is worse with certain movements. Patient states she has pain when she stands completely upright and ambulates. Patient states nothing makes her pain better. Patient denies any nausea or vomiting. Patient denies any dysuria or hematuria. Patient denies any fevers or chills. 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 Acute biliary pancreatitis Osteoarthritis Heart murmur High triglycerides High cholesterol Hypertension Arthritis Facet arthropathy, lumbar History of chest pain Home Medications ???Medication ???Instructions ???Recorded ???Last Taken ???Type levothyroxine 100 mcg tablet 100 mcg PO DAILY THYROID 12/28/20 08/26/21 History carvedilol 25 mg tablet 25 mg PO BID bp 08/12/21 08/26/21 History ondansetron 4 mg disintegrating 4 mg PO Q8H PRN PRN Nausea #10 tabs 02/03/24 Unknown Rx tablet cephalexin 500 mg capsule 500 mg PO Q6 #28 CAPSULES 02/13/24 Unknown Rx ergocalciferol (vitamin D2) 1,250 1,250 mcg PO Q7D 02/13/24 Unknown History mcg (50,000 unit) capsule losartan 100 mg tablet 50 mg PO BID 02/13/24 Unknown History Allergy/AdvReac Type Severity Reaction Status Date / Time Penicillins Allergy Severe Rash Verified 02/13/24 13:37 Anesthetics - Amide Type - Allergy Swelling Verified 02/13/24 13:37 Select A Anesthetics - [place]ubia Type- Allergy Swelling Verified 02/13/24 13:37 Parabens Iodinated Contrast Media Allergy Anaphylaxis Verified 02/13/24 13:37 Antihistamines - Alkylamine AdvReac Unknown heart Verified 02/13/24 13:37 racing enalapril AdvReac Unknown myalgias Verified 02/13/24 13:37 levothyroxine sodium (From AdvReac Unknown fatigue Verified 02/13/24 13:37 Synthroid) metoprolol (From Lopressor) AdvReac Unknown myalgias Verified 02/13/24 13:37 Family History Mother Heart disease Hypertension HLD (hyperlipidemia) Father Cancer Patient states spider cancer. Surgical History History of tooth extraction Hx of cystoscopy History of D C History of tonsillectomy Presence of coronary angioplasty implant and graft ( 10/29/12) Social History household members: spouse Smoking Status: Heavy Smoker (>10/day) how long ago did patient quit smoking: Ongoing tobacco use since teenager, 1/2 ppd. alcohol intake: never substance use type: does not use caffeine: Yes Type: carbonated beverages, coffee and tea what type of physical activity do you participate in: none ROS ROS ED Constitutional Constitutional ED: Denies chills or fever(s) Eyes Eyes: Denies blurry vision or change in vision ENT ENT ED: Denies rhinorrhea or sore throat Cardiovascular Cardiovascular: Denies chest pain or palpitations Respiratory/Chest Respiratory/Chest: Denies cough or dyspnea Gastrointestinal Gastrointestinal: Reports abdominal pain; Denies nausea or vomiting Genitourinary Genitourinary ED: Denies dysuria or hematuria Musculoskeletal Musculoskeletal: Reports back pain; Denies neck pain Integumentary Denies abscess or rash Neurologic Neurologic: Denies headache(s) or weakness Allergic/Immunologic Allergic/Immunologic ED: Denie (more content not included)... Normal [facility] Urinalysis, Completeon 02-12 BACTERIA 1+ /hpf Normal None Seen [facility] Comment on above: Order Comment: CLEAN CATCH Performed By: #### L 100.0100, L500.2500 #### [facility] [address] [place], [address] RBC 0-5 SEEN Normal 0-5 [facility] Comment on above: Order Comment: CLEAN CATCH Performed By: #### L 100.0100, L500.2500 #### [facility] [address] [place], [address] EPI,SQUAMOUS 5-10 SEEN Normal 5-10 [facility] Comment on above: Order Comment: CLEAN CATCH Performed By: #### L 100.0100, L500.2500 #### [facility] [address] [place], [address] WBC 10-25 SEEN Normal 0-5 [facility] Comment on above: Order Comment: CLEAN CATCH Performed By: #### L 100.0100, L500.2500 #### [facility] [address] [place], [address] Mucus Ql (Urine sed) 0 SEEN Normal [facility] Comment on above: Order Comment: CLEAN CATCH Performed By: #### L 100.0100, L500.2500 #### [facility] [address] [facility] [place], [address] Urine Cultureon 02-05-2024 URC Escherichia coli Babbitt Count >100,000 Escherichia coli: REACTION Ampicillin Islt SHANA 4 S Ampicillin+Sulbac Islt SHANA <=2 S ceFAZolin Islt SHANA <=4 S Cefepime Islt SHANA <=0.12 S cefTRIAXone Islt SHANA <=0.25 S Ciprofloxacin Islt SHANA <=0.25 S Ertapenem Islt SHANA <=0.12 S B-Lactamase Extended Susc Islt NEG Gentamicin Islt SHANA <=1 S Imipenem Islt SHANA <=0.25 S levoFLOXacin Islt SHANA <=0.12 S Nitrofurantoin Islt SHANA <=16 S Pip+Tazo Islt SHANA <=4 S Tobramycin Islt SHANA <=1 S TMP SMX Islt SHANA <=20 S Normal [facility] Comment on above: Performed By: #### L 100.0100, L500.2500 #### [facility] [address] [place], [address] Abdomen/Pelvis without Conto n 02-03-2024 Abdomen/Pelvis without Cont [facility] Imaging Services [address] [place] [address] Abdomen/Pelvis without Cont MR#: [id number] Acct: [id number] Name: GAYLE CHO Rep #: [id number] : 1950 F 73 From: Perry Walsh PCP: Dr. Jessica Clark MD Status: REG ER Study: Abdomen/Pelvis without Cont Date of Exam: 01/19 10/11 Exam# [id number] Ordering Dr: Tracee Morrison DO [id number] STUDY: CT Abdomen And Pelvis W/O Contrast Injection 02/03/2024 3:53 PM REASON FOR EXAM: Female, 73 years old. Abdominal pain Pain Individualized dose optimization techniques were used for this CT. COMPARISON: 01-04-23 TECHNIQUE: CT Abdomen And Pelvis W/O Contrast Injection FINDINGS: There are atherosclerotic calcifications of visualized coronary arteries. The visualized portions of the heart are within normal limits. There is decreased attenuation of the liver consistent with steatosis. Normal gallbladder and extrahepatic biliary system. Normal spleen. Normal pancreas. Normal bilateral adrenal glands. Non obstructive multiple up to 19 mm right renal calyceal stones. Non obstructive 2 mm left renal parenchymal stones. Stable 7 mm hyperdense lesion in the mid lateral right kidney. This is 33 Hounsfield units. This is indeterminate. Normal visualized stomach. Normal small intestine. There are multiple colonic diverticula consistent with diverticulosis. The appendix is visualized and appears normal. There are calcifications of the abdominal aorta. This is consistent for atherosclerotic disease. There is NO abdominal aortic aneurysm. Vascular workup can be obtained based on clinical correlation. Normal inferior vena cava. Subcentimeter mesenteric lymph nodes. Normal urinary bladder. Normal visualized uterus. There is an umbilical hernia containing fat. There are diffuse degenerative changes of the visualized lumbar spine. There is bilateral neural foraminal stenosis at L4-5 and L5-S1. CT/Abdomen/Pelvis without Cont IMPRESSION: (NOT LISTED IN ORDER OF SIGNIFICANCE) Non obstructive multiple up to 19 mm right renal calyceal stones. Stable hyperdense lesion of the right kidney. Initial evaluation with ultrasound can be obtained. Non obstructive 2 mm left renal parenchymal stones. Other findings as above. Electronically Signed: Perry Boyd MD at 15:57 EDT , CC: Dr. Jessica Clark MD; Dr. Tracee Morrison DO Interventional Pain Physician: Signed Normal [facility] CBC W/Diff, Automatedon 01-19 Absolute Lymph 2.33 X10 3/uL Normal 0.83-4.51 [facility] Comment on above: Performed By: #### L 100.0100, L500.2500 #### [facility] [address] [place], [address] Absolute Neut 9.2 X10 3/uL High 2.0-7.7 [facility] Comment on above: Performed By: #### L 100.0100, L500.2500 #### [facility] [address] [place], [address] Basophils/100 WBC (Bld) 0.6 % Normal 0-1 [facility] Comment on above: Performed By: #### L 100.0100, L500.2500 #### [facility] [address] [place], [address] Eosinophils/100 WBC (Bld) 0.9 % Normal 0-5 [facility] Comment on above: Performed By: #### L 100.0100, L500.2500 #### [facility] [address] [place], [address] Erythrocyte distribution width (RBC) [Ratio] 13.8 % Normal 11.6-14.6 [facility] Comment on above: Performed By: #### L 100.0100, L500.2500 #### [facility] [address] [place], [address] Hematocrit (Bld) [Volume fraction] 47.2 % High 37-47 [facility] Comment on above: Performed By: #### L 100.0100, L500.2500 #### [facility] [address] [place], [address] Hemoglobin (Bld) [Mass/Vol] 15.5 g/dL High 12.0-15.0 [facility] Comment on above: Performed By: #### L 100.0100, L500.2500 #### [facility] [address] [place], [address] IG% 0.500 Normal 0.0-0.9 [facility] Comment on above: Result Comment: IG% - Immature Granulocytes (promyelocytes, myelocytes and metamyelocytes) > 1% indicates that a LEFT SHIFT is Present. Performed By: #### L 100.0100, L500.2500 #### [facility] [address] [place], [address] Lymphocytes/100 WBC (Bld) 19.0 % Normal 19-41 [facility] Comment on above: Performed By: #### L 100.0100, L500.2500 #### [facility] [address] [place], [address] MCH (RBC) [Entitic mass] 29.7 pg Normal 27.0-32.0 [facility] Comment on above: Performed By: #### L 100.0100, L500.2500 #### [facility] [address] [place], [address] MCHC (RBC) [Mass/Vol] 32.8 g/dL Normal 32-36 [facility] Comment on above: Performed By: #### L 100.0100, L500.2500 #### [facility] [address] [place], [address] MCV (RBC) [Entitic vol] 90.4 fL Normal 81-99 [facility] Comment on above: Performed By: #### L 100.0100, L500.2500 #### [facility] [address] [place], [address] Monocytes/100 WBC (Bld) 4.5 % Normal 0-10 [facility] Comment on above: Performed By: #### L 100.0100, L500.2500 #### [facility] [address] [place], [address] Neutrophils/100 WBC (Bld) 74.5 % High 47-70 [facility] Comment on above: Performed By: #### L 100.0100, L500.2500 #### [facility] [address] [place], [address] Nucleated RBC (Bld) [#/Vol] 0 10*3/uL Normal 0-5 [facility] Comment on above: Performed By: #### L 100.0100, L500.2500 #### [facility] [address] [place], [address] Platelet mean volume (Bld) [Entitic vol] 9.1 fL Normal 6.2-12.0 [facility] Comment on above: Performed By: #### L 100.0100, L500.2500 #### [facility] [address] [place], [address] Platelets (Bld) [#/Vol] 238 10*3/uL Normal 150-450 [facility] Comment on above: Performed By: #### L 100.0100, L500.2500 #### [facility] [address] [place], [address] RBC (Bld) [#/Vol] 5.22 10*6/uL Normal 4.2-5.[address] [facility] Comment on above: Performed By: #### L 100.0100, L500.2500 #### [facility] [address] [place], [address] RDW SD 45.7 fl High 35.1-43.9 [facility] Comment on above: Performed By: #### L 100.0100, L500.2500 #### [facility] [address] [place], [address] WBC (Bld) [#/Vol] 12.3 10*3/uL High 4.4-11.[address] [facility] Comment on above: Performed By: #### L 100.0100, L500.2500 #### [facility] [address] [place], [address] Comprehensive Metabolic Prof ilon 02-03-2024 Albumin [Mass/Vol] 3.9 g/dL Normal 3.2-5.0 [facility] Comment on above: Performed By: #### L 100.0100, L500.2500 #### [facility] [address] [place], [address] Albumin/Globulin [Mass ratio] 0.9 {ratio} Normal 0.9-2.4 [facility] Comment on above: Performed By: #### L 100.0100, L500.2500 #### [facility] [address] [place], [address] ALK P 120 U/L High 45-117 [facility] Comment on above: Performed By: #### L 100.0100, L500.2500 #### [facility] [address] [place], [address] ALT [Catalytic activity/Vol] 20 U/L Normal 13-56 [facility] Comment on above: Performed By: #### L 100.0100, L500.2500 #### [facility] [address] [place], [address] AST [Catalytic activity/Vol] 17 U/L Normal 15-37 [facility] Comment on above: Performed By: #### L 100.0100, L500.2500 #### [facility] [address] [place], [address] Bilirubin [Mass/Vol] 0.90 mg/dL Normal 0.20-1.00 [facility] Comment on above: Result Comment: For patients on eltrombopag therapy, use of Dimension Rice TBIL is not recommended. Performed By: #### L 100.0100, L500.2500 #### [facility] [address] [place], [address] BUN/CRE 9.6 RATIO Low 10-20 [facility] [facility] Comment on above: Performed By: #### L 100.0100, L500.2500 #### [facility] [address] [place], [address] CA,Total 10.4 mg/dL High 8.5-10.1 [facility] Comment on above: Performed By: #### L 100.0100, L500.2500 #### [facility] [address] [place], [address] Chloride [Moles/Vol] 104 mmol/L Normal 98-107 [facility] Comment on above: Performed By: #### L 100.0100, L500.2500 #### [facility] [address] [place], [address] CO2 [Moles/Vol] 25.0 mmol/L Normal 21.0-32.0 [facility] Comment on above: Performed By: #### L 100.0100, L500.2500 #### [facility] [address] [place], [address] Creatinine [Mass/Vol] 1.46 mg/dL High 0.55-1.02 [facility] Comment on above: Result Comment: The validity of the calculated GFR GFRAA in patients over 70 years has not been determined. Clinical correlation is essential. Performed By: #### L 100.0100, L500.2500 #### [facility] [address] [place], [address] EST GFR - AA 45 mL/min Low >60 [facility] Comment on above: Result Comment: Afri can [place] GFR Calc Performed By: #### L 100.0100, L500.2500 #### [facility] [address] [place], [address] GAP 8 Normal 5-15 [facility] Comment on above: Performed By: #### L 100.0100, L500.2500 #### [facility] [address] [place], [address] GFR/1.73 sq M.predicted among non-blacks MDRD (S/P/Bld) [Vol rate/Area] 37 mL/min/{1.73_m2} Low >60 [facility] Comment on above: Result Comment: Non- GFR Calc Performed By: #### L 100.0100, L500.2500 #### [facility] [address] [place], [address] Globulin (S) [Mass/Vol] 4.3 g/dL High 2.2-4.2 [facility] Comment on above: Performed By: #### L 100.0100, L500.2500 #### [facility] [address] [place], [address] Glucose [Mass/Vol] 152 mg/dL High 74-106 [facility] Comment on above: Result Comment: Fast ing Glucose result greater than or equal to 126 mg/dL suggests DIABETES MELLITUS per A.D.A. criteria. Performed By: #### L 100.0100, L500.2500 #### [facility] [address] [place], [address] Potassium [Moles/Vol] 4.0 mmol/L Normal 3.5-5.1 [facility] Comment on above: Performed By: #### L 100.0100, L500.2500 #### [facility] [address] [place], [address] Sodium [Moles/Vol] 137 mmol/L Normal 136-145 [facility] Comment on above: Performed By: #### L 100.0100, L500.2500 #### [facility] [address] [place], [address] T PROT 8.2 g/dL Normal 6.4-8.2 [facility] Comment on above: Performed By: #### L 100.0100, L500.2500 #### [facility] [address] [place], [address] Urea nitrogen [Mass/Vol] 14 mg/dL Normal 7-18 [facility] Comment on above: Performed By: #### L 100.0100, L500.2500 #### [facility] [address] [place], [address] Emergency Department Summary on 02-03-2024 Emergency Department Summary [facility] Medical Records Department [address] [place] [address] Emergency Department Summary 02/03/24 MR#: [id number] Acct: [id number] Name: GAYLE CHO Rep #: [id number] : 1950 73 From: Tracee Morrison DO PCP: Dr. Jessica Clark MD Status:DEP ER Location: ED HPI HPI - GI History of Present Illness Chief Complaint: Abd Pain Detail of Chief Complaint: Abdominal pain Informant: patient Narrative Narrative: Patient presents with worsening abdominal pain over the last 4 days. She has history of kidney stones. Currently rates her pain an 8 out of 10. She has had nausea and vomiting today 3-4 times. She had diarrhea a week ago. She describes some sweats. She denies fever. She denies dysuria although she was treated for UTI 2 or 3 weeks ago. No prior abdominal surgeries. [facility] Medical History Accelerated hypertension Acute biliary pancreatitis Anxiety Arthritis Atherosclerotic heart disease of [place] coronary artery without angina pectoris Atrial fibrillation Cancer Cardiology follow-up encounter CKD (chronic kidney disease) stage 3, GFR 30-59 ml/min CPAP (continuous positive airway pressure) dependence Essential hypertension Facet arthropathy, lumbar Heart murmur High cholesterol High triglycerides History of chest pain History of echocardiogram History of renal disease History of stress test HLD (hyperlipidemia) Hypertension Hypothyroidism Irregular heart beat Kidney stones Myocardial infarct Osteoarthritis Parathyroid abnormality Presence of stent in coronary artery ( 10/29/12) Rash Restless legs Smoker Thyroid disease Wears dentures Wears glasses Home Medications ???Medication ???Instructions ???Recorded ???Last Taken ???Type levothyroxine 100 mcg tablet 100 mcg PO DAILY THYROID 12/28/20 08/26/21 History carvedilol 25 mg tablet 25 mg PO BID bp 08/12/21 08/26/21 History losartan 50 mg tablet 50 mg PO BID #60 tabs 08/12/21 08/26/21 Rx cephalexin 500 mg capsule 500 mg PO Q6 #28 CAPSULES 02/03/24 Unknown Rx ondansetron 4 mg disintegrating 4 mg PO Q8H PRN PRN Nausea #10 tabs 02/03/24 Unknown Rx tablet Allergy/AdvReac Type Severity Reaction Status Date / Time Penicillins Allergy Severe Rash Verified 02/03/24 12:30 Anesthetics - Amide Type - Allergy Swelling Verified 02/03/24 12:30 Select A [facility]esthetics - [place] Type- Allergy Swelling Verified 02/03/24 12:30 Parabens Iodinated Contrast Media Allergy Anaphylaxis Verified 02/03/24 12:30 Antihistamines - Alkylamine AdvReac Unknown heart Verified 02/03/24 12:30 racing enalapril AdvReac Unknown myalgias Verified 02/03/24 12:30 levothyroxine sodium (From AdvReac Unknown fatigue Verified 02/03/24 12:30 Synthroid) metoprolol (From Lopressor) AdvReac Unknown myalgias Verified 02/03/24 12:30 Family History Mother Heart disease Hypertension HLD (hyperlipidemia) Father Cancer Patient states spider cancer. Surgical History History of D C History of tonsillectomy History of tooth extraction Hx of cystoscopy Presence of coronary angioplasty implant and graft ( 10/29/12) Social History household members: spouse Smoking Status: Heavy Smoker (>10/day) how long ago did patient quit smoking: Ongoing tobacco use since teenager, 05/22 ppd. alcohol intake: never substance use type: does not use caffeine: Yes Type: carbonated beverages, coffee and tea what type of physical activity do you participate in: none ROS ROS ED Review of Systems ROS Unobtainable: other Constitutional Constitutional ED: Reports lethargy; Denies chills, fever(s), sweats or weight loss Eyes Eyes: Denies blurry vision, change in vision or diplopia ENT ENT ED: Denies rhinorrhea or sore throat Cardiovascular Cardiovascular: Denies chest pain, orthopnea or racing heartbeat Respiratory/Chest Respiratory/Chest: Denies cough, dyspnea, dyspnea on exertion, orthopnea or sputum Gastrointestinal Gastrointestinal: Reports abdominal pain, nausea and vomiting; Denies diarrhea Genitourinary Genitourinary ED: Denies dysuria, hematuria or urinary frequency Musculoskeletal Musculoskeletal: Denies arthralgias, back pain, myalgias or neck pain Integumentary Denies abscess, Abrasions or rash Neurologic Neurologic: Denies headache(s) or weakness Psychiatric Psychiatric: Denies anxiety, depression or suicidal thoughts Endocrine Endocrinology: Denies polydipsia, polyphagia or polyuria Hematologic/Lymphatic Hematologic/Lymphatic: Denies easy bleeding, easy bruising or lymphadenopathy Allergic/Immunologic Allergic/Immunologic ED: Denies alvino (more content not included)... Normal [facility] Lactic Acidon 02-03-2024 Lactate [Moles/Vol] 1.2 mmol/L Normal 0.4-1.[address] [facility] Comment on above: Order Comment: Y Performed By: #### L 100.0100, L500.2500 #### [facility] [address] [place], [place], [id number] Urinalysis, Completeon 02-02 BACTERIA 2+ /hpf Normal None Seen [facility] Comment on above: Order Comment: CLEAN CATCH Performed By: #### L 100.0100, L500.2500 #### [facility] [address] [place], [place], [id number] EPI,SQUAMOUS 0-5 SEEN Normal 5-10 [facility] Comment on above: Order Comment: CLEAN CATCH Performed By: #### L 100.0100, L500.2500 #### [facility] [address] [place], [address] WBC 50-100 SEEN Normal 0-5 [facility] Comment on above: Order Comment: CLEAN CATCH Performed By: #### L 100.0100, L500.2500 #### [facility] [address] [place], [address] Mucus Ql (Urine sed) 0 SEEN Normal [facility] Comment on above: Order Comment: CLEAN CATCH Performed By: #### L 100.0100, L500.2500 #### [facility] [address] [place], [address] RBC 0 SEEN Normal 0-5 [facility] Comment on above: Order Comment: CLEAN CATCH Performed By: #### L 100.0100, L500.2500 #### [facility] [address] [place], [address] CBC W Auto Differential pane l (Bld)on 01-02-2024 Basophils (Bld) [#/Vol] 0.06 10*3/uL [facility] Basophils/100 WBC (Bld) 0.6 % [facility] Differential cell count method Nom (Bld) Auto [facility] Eosinophils (Bld) [#/Vol] 0.25 10*3/uL [facility] Eosinophils/100 WBC (Bld) 2.6 % [facility] Erythrocyte distribution width (RBC) [Ratio] 14.0 % 11.5 - 15.0 % [facility] Hematocrit (Bld) [Volume fraction] 45.7 % 36.0 - 46.0 % [facility] Hemoglobin (Bld) [Mass/Vol] 14.6 g/dL 11.5 - 15.5 g/dL [facility] Immature granulocytes (Bld) [#/Vol] 0.03 10*3/uL [facility] Immature granulocytes/100 WBC (Bld) 0.3 % [facility] Lymphocytes (Bld) [#/Vol] 3.35 10*3/uL [facility] Lymphocytes/100 WBC (Bld) 34.5 % [facility] MCH (RBC) [Entitic mass] 29.9 pg 26.0 - 34.0 pg [facility] MCHC (RBC) [Mass/Vol] 31.9 g/dL 30.5 - 36.0 g/dL [facility] MCV (RBC) [Entitic vol] 93.6 fL 80.0 - 100.0 fL [facility] Monocytes (Bld) [#/Vol] 0.80 10*3/uL NINF [facility] Monocytes/100 WBC (Bld) 8.2 % [facility] Neutrophils (Bld) [#/Vol] 5.22 10*3/uL [facility] Neutrophils/100 WBC (Bld) 53.8 % [facility] Nucleated RBC (Bld) [#/Vol] NINF [facility] Nucleated RBC/100 WBC (Bld) [Ratio] 0.0 % /100 WBC [facility] Platelet mean volume (Bld) [Entitic vol] 9.4 fL 9.0 - 12.7 fL [facility] Platelets (Bld) [#/Vol] 242 10*3/uL [facility] RBC (Bld) [#/Vol] 4.88 10*6/uL 3.90 - 5.20 m/uL [facility] WBC (Bld) [#/Vol] 9.71 10*3/uL [facility] UA DIP, URINE (POC)on 2023 BILIRUBIN UA (POCT) Negative Negative [facility] CLARITY UA (POCT) Cloudy [facility] COLOR UA (POCT) Yellow [facility] GLUCOSE UA (POCT) Negative Negative mg/dL [facility] Hemoglobin Ql (U) Trace-intact Abnormal Negative [facility] Interpretation and review of laboratory results Abnormal [facility] KETONE UA (POCT) Negative Negative mg/dL [facility] LEUKOCYTES UA (POCT) Small Abnormal Negative [facility] NITRITE UA (POCT) Positive Abnormal Negative [facility] PH UA (POCT) 5.5 4.5 - 8.0 [facility] Protein Ql (U) 30 mg/dL Abnormal Negative [facility] SPECIFIC GRAVITY UA (POCT) 1.020 1.005 - 1.030 [facility] UROBILINOGEN UA (POCT) 0.2 Normal E.U./dL [facility] Location:[facility], [address] [place] [address], [place], [address] [facility] POINT OF CARE [facility] Absolute lymphocyte countOrd ered By: Denzel Cody on 01-04-2023 Lymphocytes Auto (Unsp spec) [#/Vol] 2.50 10*3/uL 0.83-4.51 [facility] Basophil percentageOrdered B y: Denzel Cody on 01-04-2023 Basophil percentage 50-100 SEEN /hpf 0-5 [facility] Basophils/100 WBC (Bld) 0.5 % 0-1 [facility] Chloride [Moles/Vol] 108 mmol/L 98-107 [facility] Eosinophils/100 WBC (Bld) 2.2 % 0-5 [facility] Glucose [Mass/Vol] 103 mg/dL 74-106 [facility] Comment on above: Fasting Glucose resu lt from 100 to 125 mg/dL suggests IMPAIRED HOMEOSTASIS per A.D.A. criteria. Neutrophils (Bld) [#/Vol] 7.8 10*3/uL 2.0-7.7 [facility] Neutrophils/100 WBC (Bld) 67.5 % 47-70 [facility] Potassium [Moles/Vol] 3.5 mmol/L 3.5-5.1 [facility] Sodium [Moles/Vol] 140 mmol/L 136-145 [facility] WBC (Bld) [#/Vol] 11.6 10*3/uL 4.4-11.[address] [facility] Bilirubin Test strip Ql (U)O rdered By: Denzel Cody on 01-04-2023 Bilirubin Ql (U) Negative Negative [facility] Blood erythrocytes count (nu mber/volume)Ordered By: Denzel Cody on 01-04-2023 RBC (Bld) [#/Vol] 4.83 10*6/uL 4.2-5.[address] [facility] Blood hemoglobin measurement (mass/volume)Ordered By: Denzel Cody on 01-04-2023 Hemoglobin (Bld) [Mass/Vol] 14.5 g/dL 12.0-15.0 [facility] Blood lymphocytes/100 leukoc ytesOrdered By: Denzel Cody on 01-04-2023 Lymphocytes/100 WBC (Bld) 21.6 % 19-41 [facility] Blood monocytes/100 leukocyt esOrdered By: Denzel Cody on 01-04-2023 Monocytes/100 WBC (Bld) 7.9 % 0-10 [facility] Blood platelet mean volumeOr dered By: Denzel Cody on 01-04-2023 Platelet mean volume (Bld) [Entitic vol] 9.1 fL 6.2-12.0 [facility] Determination of erythrocyte mean corpuscular volume (MCV)Ordered By: Denzel Cody on 01-04-2023 MCV (RBC) [Entitic vol] 92.3 fL 81-99 [facility] Hematocrit Auto (Bld) [Volum e fraction]Ordered By: Denzel Cody on 01-04-2023 Hematocrit (Bld) [Volume fraction] 44.6 % 37-47 [facility] Ketones Test strip Ql (U)Ord ered By: Denzel Cody on 01-04-2023 Ketones Ql (U) 5 mg/dl Negative [facility] - Chemistry and C hemistry - challengeOrdered By: Denzel Cody on 01-04-2023 CO2 [Moles/Vol] 29.0 mmol/L 21.0-32.0 [facility] Urea nitrogen/Creatinine [Mass ratio] 12.6 mg/mg 10-20 [facility] - Hematology and Cell countsOrdered By: Denzel Cody on 01-04-2023 Erythrocyte distribution width (RBC) [Entitic vol] 48.5 fL 35.1-43.9 [facility] Erythrocyte distribution width (RBC) [Ratio] 14.3 % 11.6-14.6 [facility] Immature granulocytes/100 WBC (Bld) 0.300 % 0.0-0.9 [facility] Comment on above: IG% - Immature Granu locytes (promyelocytes, myelocytes and metamyelocytes) > 1% indicates that a LEFT SHIFT is Present. MCH (RBC) [Entitic mass] 30.0 pg 27.0-32.0 [facility] Nucleated RBC/100 WBC (Bld) [Ratio] 0 % 0-5 [facility] MCHC Auto (RBC) [Mass/Vol]Or dered By: Denzel Cody on 01-04-2023 MCHC (RBC) [Mass/Vol] 32.5 g/dL 32-36 [facility] Mucus LM Ql (Urine sed)Order ed By: Denzel Cody on 01-04-2023 Mucus Ql (Urine sed) 0 SEEN /hpf [facility] Nitrite Test strip Ql (U)Ord ered By: Denzel Cody on 01-04-2023 Nitrite Ql (U) Positive Negative [facility] No Panel InformationOrdered By: Denzel Cody on 01-04-2023 Estimated Creatinine Clearance Calc 26.26 ml/min [facility] Estimated GFR (MDRD) Amer 49 mL/min >60 [facility] Comment on above: GFR Calc Estimated GFR (MDRD) Non-Af Amer 41 mL/min >60 [facility] Comment on above: Non- GFR Calc Platelets bldOrdered By: Chicho Cody on 01-04-2023 Platelets (Bld) [#/Vol] 206 10*3/uL 150-450 [facility] Protein Test strip Ql (U)Ord ered By: Denzel Cody on 01-04-2023 Protein Ql (U) 500 mg/dl Negative [facility] Serum or plasma calcium tania urement (mass/volume)Ordered By: Denzel Cody on 01-04-2023 Calcium [Mass/Vol] 9.2 mg/dL 8.5-10.1 [facility] Serum or plasma creatinine m easurement (mass/volume)Ordered By: Denzel Cody on 01-04-2023 Creatinine [Mass/Vol] 1.35 mg/dL 0.55-1.02 [facility] Comment on above: The validity of the calculated GFR & GFRAA in patients over 70 years has not been determined. Clinical correlation is essential. Serum or plasma urea nitroge n measurement (mass/volume)Ordered By: Denzel Cody on 01-04-2023 Urea nitrogen [Mass/Vol] 17 mg/dL 7-18 [facility] Squamous epithelial cells de tection in urine sediment by light microscopyOrdered By: Denzel Cody on 01-04-2023 Epithelial cells.squamous LM Ql (Urine sed) 0-5 SEEN /hpf 5-10 [facility] Thin prep Papanicolaou smear with manual screeningOrdered By: Denzel Cody on 01-04-2023 Thin prep Papanicolaou smear with manual screening 3 5-15 [facility] UA DIP, URINE (POC)on 2022 BILIRUBIN UA (POCT) Large Abnormal Negative [facility] CLARITY UA (POCT) Cloudy [facility] COLOR UA (POCT) Red [facility] GLUCOSE UA (POCT) 100 mg/dL Abnormal Negative mg/dL [facility] Hemoglobin Ql (U) Large Abnormal Negative [facility] KETONE UA (POCT) 40 mg/dL Abnormal Negative mg/dL [facility] LEUKOCYTES UA (POCT) Large Abnormal Negative [facility] NITRITE [facility] (POCT) Negative Negative [facility] PH UA (POCT) 8.5 Abnormal 4.5 - 8.0 [facility] Protein Ql (U) >=300 Abnormal Negative mg/dL [facility] SPECIFIC GRAVITY UA (POCT) <=1.005 Abnormal 1.005 - 1.030 [facility] UROBILINOGEN UA (POCT) 4.0 E.U./dL Abnormal Normal E.U./dL [facility] Urine blood detectionOrdered By: Denzel Cody on 01-04-2023 RBC Ql (U) 250 /ul Negative [facility] RBC Ql (U) > 100 SEEN /hpf 0-5 [facility] Urine clarityOrdered By: Chicho Cody on 01-04-2023 Clarity (U) Cloudy Clear [facility] Urine color determinationOrd ered By: Denzel Cody on 01-04-2023 Color (U) Red Yellow [facility] Urine glucose detectionOrder ed By: Denzel Cody on 01-04-2023 Glucose Ql (U) Normal mg/dl Normal [facility] Urine leukocyte esterase det ection by dipstickOrdered By: Denzel Cody on 01-04-2023 Leukocyte esterase Test strip Ql (U) 500 /ul Negative [facility] Urine pHOrdered By: Denzel sebastian on 01-04-2023 pH (U) 6.5 [pH] 5.0 - 8.0 [facility] Urine sediment bacteria coun t by microscopy (number/high power field)Ordered By: Denzel Cody on 01-04-2023 Bacteria LM.HPF (Urine sed) [#/Area] 2 /[HPF] None Seen [facility] Urine specific gravity measu rementOrdered By: Denzel Cody on 01-04-2023 Specific gravity (U) [Rel density] 1.010 1.002-1.03 0 [facility] Urobilinogen Auto test strip Ql (U)Ordered By: Denzel Cody on 01-04-2023 Urobilinogen Ql (U) Normal mg/dl Normal [facility] CBC W Auto Differential pane l (Bld)on 10-03-2022 Basophils (Bld) [#/Vol] 0.05 10*3/uL <0.11 k/uL [facility] Basophils/100 WBC (Bld) 0.6 % [facility] Differential cell count method Nom (Bld) Auto [facility] Eosinophils (Bld) [#/Vol] 0.31 10*3/uL <0.46 k/uL [facility] Eosinophils/100 WBC (Bld) 3.5 % [facility] Erythrocyte distribution width (RBC) [Ratio] 13.2 % 11.5 - 15.0 % [facility] Hematocrit (Bld) [Volume fraction] 42.6 % 36.0 - 46.0 % [facility] Hemoglobin (Bld) [Mass/Vol] 13.8 g/dL 11.5 - 15.5 g/dL [facility] Immature granulocytes (Bld) [#/Vol] 0.03 10*3/uL <0.10 k/uL [facility] Immature granulocytes/100 WBC (Bld) 0.3 % [facility] Lymphocytes (Bld) [#/Vol] 2.40 10*3/uL 1.00 - 4.00 k/uL [facility] Lymphocytes/100 WBC (Bld) 27.5 % [facility] MCH (RBC) [Entitic mass] 29.9 pg 26.0 - 34.0 pg [facility] MCHC (RBC) [Mass/Vol] 32.4 g/dL 30.5 - 36.0 g/dL [facility] MCV (RBC) [Entitic vol] 92.2 fL 80.0 - 100.0 fL [facility] Monocytes (Bld) [#/Vol] 0.83 10*3/uL <0.87 k/uL [facility] Monocytes/100 WBC (Bld) 9.5 % [facility] Neutrophils (Bld) [#/Vol] 5.12 10*3/uL 1.45 - 7.50 k/uL [facility] Neutrophils/100 WBC (Bld) 58.6 % [facility] Nucleated RBC (Bld) [#/Vol] <0.01 k/uL [facility] Nucleated RBC/100 WBC (Bld) [Ratio] 0.0 /100 WBC [facility] Platelet mean volume (Bld) [Entitic vol] 9.2 fL 9.0 - 12.7 fL [facility] Platelets (Bld) [#/Vol] 216 10*3/uL 150 - 400 k/uL [facility] RBC (Bld) [#/Vol] 4.62 10*6/uL 3.90 - 5.20 m/uL [facility] WBC (Bld) [#/Vol] 8.74 10*3/uL 3.70 - 11.00 k/uL [facility] XR Chest PA and Lateralon IMPRESSION: Stable exam without acute findings. Interventional Pain Physician: EMILI Transcribe Date/Time: Oct 03 2022 11:21A Dictated by : GIGI CORTES MD This examination was interpreted and the report reviewed and electronically signed by: GIGI CORTES MD on Oct 03 2022 11:22AM [facility] RAD[facility]OLOG[facility] * * *Final Report* * * DATE OF EXAM: Oct 03 2022 11:09AM WOX [id number] - XR CHEST 2V FRONTAL/LAT / PROCEDURE REASON: Acute cough * * * * Physician Interpretation * * * * EXAMINATION: CHEST RADIOGRAPH (2 VIEW FRONTAL & LATERAL) CLINICAL HISTORY: Acute cough MQ: XC2_6 EXAM DATE/TIME: 10/03/2022 11:09 AM COMPARISON: Chest x-ray on 03/31/2022 RESULT: Lines, tubes, and devices: None. Lungs and pleura: No consolidation. No lung mass. No pleural effusion. No pneumothorax. Cardiomediastinal silhouette: Stable cardiomediastinal silhouette. A coronary stent is visualized. Bones and soft tissues: Unremarkable. DIVISION OF RADIOLOGY Provider, [facility] Jericho Mena - 10/03/2022 * * *Final Report* * * DATE OF EXAM: Oct 03 2022 11:09AM WOX [id number] - XR CHEST 2V FRONTAL/LAT / PROCEDURE REASON: Acute cough * * * * Physician Interpretation * * * * EXAMINATION: CHEST RADIOGRAPH (2 VIEW FRONTAL & LATERAL) CLINICAL HISTORY: Acute cough MQ: XC2_6 EXAM DATE/TIME: 10/03/2022 11:09 AM COMPARISON: Chest x-ray on 03/31/2022 RESULT: Lines, tubes, and devices: None. Lungs and pleura: No consolidation. No lung mass. No pleural effusion. No pneumothorax. Cardiomediastinal silhouette: Stable cardiomediastinal silhouette. A coronary stent is visualized. Bones and soft tissues: Unremarkable. IMPRESSION IMPRESSION: Stable exam without acute findings. Interventional Pain Physician: EMILI Transcribe Date/Time: Oct 03 2022 11:21A Dictated by : GIGI CORTES MD This examination was interpreted and the report reviewed and electronically signed by: GIGI CORTES MD on Oct 03 2022 11:22AM EST [facility] Radiology Study observation (narrative) [facility] XR Chest PA and LateralOrder ed By: [facility] Provider on 10-03-2022 [facility] XR CHEST 2V FRONTAL/LATon [facility] XR Chest PA and Lateralon IMPRESSION: No developing abnormality or acute process. Interventional Pain Physician: EMILI Transcribe Date/Time: Mar 31 2022 1:47P Dictated by : AARON PETERS MD This examination was interpreted and the report reviewed and electronically signed by: AARON PETERS MD on Mar 31 2022 1:48PM [facility] * * *Final Report* * * DATE OF EXAM: Mar 31 2022 12:55PM WOX 5291 - XR CHEST 2V FRONTAL/LAT / PROCEDURE REASON: Acute cough * * * * Physician Interpretation * * * * EXAMINATION: CHEST RADIOGRAPH (2 VIEW FRONTAL & LATERAL) CLINICAL HISTORY: Acute cough MQ: XC2_6 EXAM DATE/TIME: 03/31/2022 12:55 PM COMPARISON: 02/04/2019 RESULT: Lines, tubes, and devices: None. Lungs and pleura: No consolidation. No lung mass. No pleural effusion. No pneumothorax. Cardiomediastinal silhouette: Stable cardiomediastinal silhouette. Bones and soft tissues: Mild degenerative change and osteophytosis throughout the dorsal spine DIVISION OF RADIOLOGY Provider, Ariadne Mena - 03/31/2022 * * *Final Report* * * DATE OF EXAM: Mar 31 2022 12:55PM WOX 5291 - XR CHEST 2V FRONTAL/LAT / PROCEDURE REASON: Acute cough * * * * Physician Interpretation * * * * EXAMINATION: CHEST RADIOGRAPH (2 VIEW FRONTAL & LATERAL) CLINICAL HISTORY: Acute cough MQ: XC2_6 EXAM DATE/TIME: 03/31/2022 12:55 PM COMPARISON: 02/04/2019 RESULT: Lines, tubes, and devices: None. Lungs and pleura: No consolidation. No lung mass. No pleural effusion. No pneumothorax. Cardiomediastinal silhouette: Stable cardiomediastinal silhouette. Bones and soft tissues: Mild degenerative change and osteophytosis throughout the dorsal spine IMPRESSION IMPRESSION: No developing abnormality or acute process. Interventional Pain Physician: EMILI Transcribe Date/Time: Mar 31 2022 1:47P Dictated by : AARON PETERS MD This examination was interpreted and the report reviewed and electronically signed by: AARON PETERS MD on Mar 31 2022 1:48PM EST [facility] Radiology Study observation (narrative) [facility] XR Chest PA and LateralOrder ed By: Ccf Provider on 03-31-2022 [facility] Basic metabolic 2000 panelon 10-18-2021 Anion gap [Moles/Vol] 9 mmol/L 9 - 18 mmol/L [facility] Calcium [Mass/Vol] 9.6 mg/dL 8.5 - 10. 2 mg/dL [facility] Chloride [Moles/Vol] 102 mmol/L 97 - 10 5 mmol/L [facility] CO2 [Moles/Vol] 24 mmol/L 22 - 30 mmol/L [facility] Creatinine [Mass/Vol] 1.68 mg/dL High 0.58 - 0.96 mg/dL [facility] Estimated Glomerular Filtration Rate 32 mL/min/1.73m Low >=60 mL/min/1.7 3m [facility] Glucose [Mass/Vol] 99 mg/dL 74 - 99 mg/dL [facility] Potassium [Moles/Vol] 4.2 mmol/L 3.7 - 5.1 mmol/L [facility] Sodium [Moles/Vol] 135 mmol/L Low 136 - 144 mmol/L [facility] Urea nitrogen [Mass/Vol] 28 mg/dL High 7 - 21 mg/dL [facility] CBC W Auto Differential pane l (Bld)on 10-18-2021 Abs Immature Gran 0.12 k/uL High <0.10 k/uL [facility] Basophils (Bld) [#/Vol] 0.04 10*3/uL <0.11 k/uL [facility] Basophils/100 WBC (Bld) 0.3 % [facility] Differential cell count method Nom (Bld) Auto [facility] Eosinophils (Bld) [#/Vol] 0.03 10*3/uL <0.46 k/uL [facility] Eosinophils/100 WBC (Bld) 0.2 % [facility] Erythrocyte distribution width (RBC) [Ratio] 15.4 % High 11.5 - 15.0 % [facility] Hematocrit (Bld) [Volume fraction] 36.1 % 36.0 - 46.0 % [facility] Hemoglobin (Bld) [Mass/Vol] 12.1 g/dL 11.5 - 15.5 g/dL [facility] Immature Gran % 0.8 % [facility] Lymphocytes (Bld) [#/Vol] 2.40 10*3/uL 1.00 - 4.00 k/uL [facility] Lymphocytes/100 WBC (Bld) 15.7 % [facility] MCH (RBC) [Entitic mass] 29.6 pg 26.0 - 34.0 pg [facility] MCHC (RBC) [Mass/Vol] 33.5 g/dL 30.5 - 36.0 g/dL [facility] MCV (RBC) [Entitic vol] 88.3 fL 80.0 - 100.0 fL [facility] Monocytes (Bld) [#/Vol] 1.65 10*3/uL High <0.87 k/uL [facility] Monocytes/100 WBC (Bld) 10.8 % [facility] Neutrophils (Bld) [#/Vol] 11.02 10*3/uL High 1.45 - 7.50 k/uL [facility] Neutrophils/100 WBC (Bld) 72.2 % [facility] Nucleated RBC (Bld) [#/Vol] 10*3/uL <0.01 k/uL [facility] Nucleated RBC/100 WBC (Bld) [Ratio] 0.0 /100 WBC [facility] Platelet mean volume (Bld) [Entitic vol] 9.5 fL 9.0 - 12.7 fL [facility] Platelets (Bld) [#/Vol] 170 10*3/uL 150 - 400 k/uL [facility] RBC (Bld) [#/Vol] 4.09 10*6/uL 3.90 - 5.20 m/uL [facility] WBC (Bld) [#/Vol] 15.26 10*3/uL High 3.70 - 11.00 k/uL [facility] UA DIP, URINE (POC)on 2021 BILIRUBIN UA (POCT) Negative Negative Ran [facility] CLARITY UA (POCT) Clear [facility] COLOR UA (POCT) Radha [facility] GLUCOSE UA (POCT) Negative Negative mg/dL [facility] HEMOGLOBIN/BLOOD UA (POCT) Moderate Abnormal Negative [facility] KETONE UA (POCT) Negative Negative mg/dL [facility] LEUKOCYTES UA (POCT) Large Abnormal Negative [facility] NITRITE UA (POCT) Positive Abnormal Negative [facility] PH UA (POCT) 6.0 4.5 - 8.0 [facility] Protein Ql (U) 100 mg/dL Abnormal Negative mg/dL [facility] SPECIFIC GRAVITY UA (POCT) 1.010 1.005 - 1.030 [facility] UROBILINOGEN UA (POCT) 0.2 E.U./dL Normal E.U./dL [facility] Color of specimen determinat ionon 08-26-2021 Color (Unsp spec) Not Reportable [place] [facility] Work Phone: Measurement of weight of sto neon 08-26-2021 Weight (Stone) Not Reportable [place] [facility] Work Phone: Origin of Stoneon 08-26-2021 Origin Nom (Stone) See comment [place] [facility] Work Phone: Comment on above: TEST RESULT LIMITSSt one Analysis Source Not provided Color Christian Size 3x3 mm Single piece received. Weight 15.0 mg Composition Percentage (Represents the % composition) Calcium Oxalate Monohydrate 30 % Uric Acid 70 %Photo Photograph will follow under a separate coverComment: Physician questions regarding [employer] Analysis contact [facility] at: [phone].Please note: Calculi report will follow via computer, mail or road repairer delivery.Disclaimer: This test was developed and its performance characteristics determined by [facility]. It has not been cleared or approved by the Food and Drug Administration. TESTING PERFORMED AT [facility]. ORIGINAL REPORT ON FILE IN LAB CONTAINS ADDITIONAL TEST SITE INFORMATION. Size of stoneon 08-26-2021 Size (Stone) [Entitic vol] Not Reportable [facility] Work Phone: Absolute lymphocyte counton 08-12-2021 Lymphocytes Auto (Unsp spec) [#/Vol] 2.76 10*3/uL 0.83-4.51 [facility] Work Phone: [phone] Basophil percentageon 2021 Basophil percentage >100 SEEN /hpf [facility] Work Phone: Comment on above: Microscopic field is filled. Other elements may be obscured. Basophils/100 WBC (Bld) 2.9 % 0-1 [facility] Work Phone: [phone] Chloride [Moles/Vol] 107 mmol/L 98-107 [facility] Work Phone: [phone] Eosinophils/100 WBC (Bld) 0.5 % 0-5 [facility] Work Phone: [phone] Glucose [Mass/Vol] 144 mg/dL 74-106 [facility] Work Phone: Comment on above: Fasting Glucose resu lt greater than or equal to 126 mg/dL suggests DIABETES MELLITUS per A.D.A. criteria. Lymphocytes/100 WBC (Bld) 28.5 % 19-41 [facility] Work Phone: [phone] Monocytes/100 WBC (Bld) 8.5 % 0-10 [facility] Work Phone: [phone] Neutrophils (Bld) [#/Vol] 5.8 10*3/uL 2.0-7.7 [facility] Work Phone: [phone] Neutrophils/100 WBC (Bld) 59.3 % 47-70 [facility] Work Phone: [phone] Potassium [Moles/Vol] 3.5 mmol/L 3.5-5.1 [facility] Work [facility]: [phone] Sodium [Moles/Vol] 140 mmol/L 136-145 [facility] Work Phone: [phone] WBC (Bld) [#/Vol] 9.7 10*3/uL 4.4-11.0 [facility] Work Phone: [phone] Bilirubin Test strip Ql (U)o n 08-12-2021 Bilirubin Ql (U) Negative Negative [facility] Work Phone: Blood erythrocytes count (nu mber/volume)on 08-12-2021 RBC (Bld) [#/Vol] 4.68 10*6/uL 4.2-5.[address] [facility] Work Phone: Blood hemoglobin measurement (mass/volume)on 08-12-2021 Hemoglobin (Bld) [Mass/Vol] 13.6 g/dL 12.0-15.0 [facility] Work Phone: Blood platelet mean volumeon 08-12-2021 Platelet mean volume (Bld) [Entitic vol] 9.2 fL 6.2-12.0 [facility] Work Phone: Culture, urineon 08-12-2021 Bacteria identified Cx Nom (U) Escherichia coli [facility] Work Phone: Determination of erythrocyte mean corpuscular volume (MCV)on 08-12-2021 MCV (RBC) [Entitic vol] 88.0 fL 81-99 [facility] Work Phone: Glucose Glucometer (BldC) [M ass/Vol]on 08-12-2021 Glucose [Mass/Vol] 127 mg/dL 74-106 [facility] r [facility] Work Phone: Comment on above: MANAGEMENT OF PATIEN T CARE PER NURSING PROTOCOL Hematocrit Auto (Bld) [Volum e fraction]on 08-12-2021 Hematocrit (Bld) [Volume fraction] 41.2 % 37-47 [facility] Work Phone: Ketones Test strip Ql (U)on 08-12-2021 Ketones Ql (U) Negative Negative [facility] Work Phone: Laboratory - Chemistry and C hemistry - challengeon 08-12-2021 CO2 [Moles/Vol] 28.0 mmol/L 21.0-32.0 [facility] Work Phone: Magnesium [Mass/Vol] 2.0 mg/dL 1.6-2.6 [facility] Work Phone: Urea nitrogen/Creatinine [Mass ratio] 13.3 mg/mg 10-20 [facility] Work Phone: Laboratory - Hematology and Cell countson 08-12-2021 Erythrocyte distribution width (RBC) [Entitic vol] 44.8 fL 35.1-43.9 [facility] Work Phone: Erythrocyte distribution width (RBC) [Ratio] 13.9 % 11.6-14.6 [facility] Work Phone: Immature granulocytes/100 WBC (Bld) 0.300 % 0.0-0.9 [facility] Work Phone: Comment on above: IG% - Immature Granu locytes (promyelocytes, myelocytes and metamyelocytes) > 1% indicates that a LEFT SHIFT is Present. MCH (RBC) [Entitic mass] 29.1 pg 27.0-32.0 [facility] Work Phone: Nucleated RBC/100 WBC (Bld) [Ratio] 0 % 0-5 [facility] Work Phone: Laboratory - Microbiology an d Antimicrobial susceptibilityon 08-12-2021 Bacteria identified Cx Nom (Bld) No growth in 5 days. [facility] Work Phone: MCHC Auto (RBC) [Mass/Vol]on 08-12-2021 MCHC (RBC) [Mass/Vol] 33.0 g/dL 32-36 [facility] Work Phone: Mucus LM Ql (Urine sed)on Mucus Ql (Urine sed) 0 SEEN /hpf [facility] Work Phone: Nitrite Test strip Ql (U)on 08-12-2021 Nitrite Ql (U) Negative Negative [facility] Work Phone: No Panel Informationon 08-12 Estimated Creatinine Clearance Calc 28.12 ml/min [facility] Work Phone: Estimated GFR (MDRD) Amer 52 mL/min >60 [facility] Work Phone: Estimated GFR (MDRD) Non-Af Amer 43 mL/min >60 [facility] Work Phone: Thyroid Stimulating Hormone (TSH) 0.86 uIU/mL 0.358-3.74 [facility] Work Phone: Platelets bldon 08-12-2021 Platelets (Bld) [#/Vol] 219 10*3/uL 150-450 [facility] Work Phone: Protein Test strip Ql (U)on 08-12-2021 Protein Ql (U) 500 mg/dl Negative [facility] Work Phone: Serum or plasma calcium tania urement (mass/volume)on 08-12-2021 Calcium [Mass/Vol] 9.6 mg/dL 8.5-10.1 [facility] Work Phone: Serum or plasma creatinine m easurement (mass/volume)on 08-12-2021 Creatinine [Mass/Vol] 1.28 mg/dL 0.55-1.02 [facility] Work Phone: Comment on above: The validity of the calculated GFR & GFRAA in patients over 70 years has not been determined. Clinical correlation is essential. Serum or plasma urea nitroge n measurement (mass/volume)on 08-12-2021 Urea nitrogen [Mass/Vol] 17 mg/dL 7-18 [facility] Work Phone: [phone] Squamous epithelial cells de tection in urine sediment by light microscopyon 08-12-2021 Epithelial cells.squamous LM Ql (Urine sed) 5-10 SEEN /hpf [facility] Work Phone: [phone] Thin prep Papanicolaou smear with manual screeningon 08-12-2021 Thin prep Papanicolaou smear with manual screening 5 5-15 [facility] Work Phone: [phone] Urine blood detectionon - RBC Ql (U) 250 /ul Negative [facility] Work Phone: RBC Ql (U) > 100 SEEN /hpf [facility] Work Phone: [phone] Urine clarityon 08-12-2021 Clarity (U) Turbid Clear [facility] Work Phone: Urine color determinationon 08-12-2021 Color (U) Red Yellow [facility] Work Phone: [phone] Urine glucose detectionon Glucose Ql (U) Normal mg/dl Normal [facility] Work Phone: [phone] Urine leukocyte esterase det ection by dipstickon 08-12-2021 Leukocyte esterase Test strip Ql (U) 500 /ul Negative [facility] Work Phone: [phone] Urine pHon 08-12-2021 pH (U) 6.0 [pH] [facility] Work Phone: [phone] Urine sediment bacteria coun t by microscopy (number/high power field)on 08-12-2021 Bacteria LM.HPF (Urine sed) [#/Area] 0 /[HPF] None Seen [facility] Work Phone: [phone] Urine specific gravity measu rementon 08-12-2021 Specific gravity (U) [Rel density] 1.025 [facility] Work Phone: [phone] Urobilinogen Auto test strip Ql (U)on 08-12-2021 Urobilinogen Ql (U) Normal mg/dl Normal [facility] Work Phone: XR Toes - left 3 Viewson IMPRESSION: No acute bony finding. Mild degenerative findings [facility] Transcribe Date/Time: Aug 04 2021 3:40P Dictated by : SARI MORA MD This examination was interpreted and the report reviewed and electronically signed by: SARI MORA MD on Aug 04 2021 3:44PM EST DIVISION OF RADIOLOGY * * *Final Report* * * DATE OF EXAM: Aug 04 2021 10:09AM WOX 5268 - XR TOE 3V AP/LAT/OBL LT / PROCEDURE REASON: multiple diagnoses * * * * Physician Interpretation * * * * Left great toe HISTORY: 71 years old Clinical information: Onychomycosis Subungual exostosis Left great toenail deformity and pain x several months TECHNIQUE: Images: XR TOE 3V AP/LAT/OBL LT Comparison: None. RESULT: Findings: No fracture or bony destruction. Minimal spurring IP joint. Mild spurring 1st MTP joint, and 1st metatarsal bunion. No soft tissue calcification DIVISION OF RADIOLOGY Provider, [facility] - 08/04/2021 * * *Final Report* * * DATE OF EXAM: Aug 04 2021 10:09AM WOX 5268 - XR TOE 3V AP/LAT/OBL LT / PROCEDURE REASON: multiple diagnoses * * * * Physician Interpretation * * * * Left great toe HISTORY: 71 years old Clinical information: Onychomycosis Subungual exostosis Left great toenail deformity and pain x several months TECHNIQUE: Images: XR TOE 3V AP/LAT/OBL LT Comparison: None. RESULT: Findings: No fracture or bony destruction. Minimal spurring IP joint. Mild spurring 1st MTP joint, and 1st metatarsal bunion. No soft tissue calcification IMPRESSION IMPRESSION: No acute bony finding. Mild degenerative findings Interventional Pain Physician: [facility] Transcribe Date/Time: Aug 04 2021 3:40P Dictated by : SARI MORA MD This examination was interpreted and the report reviewed and electronically signed by: SARI MORA MD on Aug 04 2021 3:44PM EST [facility] Radiology Study observation (narrative) [facility] XR Toes - left 3 ViewsOrdere d By: Ccf Provider on 08-04-2021 [facility] XR Pelvis and Hip - right AP and Lateral frogon 09-13-2020 IMPRESSION: 1. Degenerative changes as discussed calcified 2. There are again noted be multiple calcifications projecting over the RIGHT lower abdomen. These could represent calcifications within the kidney or calcified lymph nodes Interventional Pain Physician: EMILI Transcribe Date/Time: Sep 13 2020 1:50P Dictated by : JOSE CAMACHO DO This examination was interpreted and the report reviewed and electronically signed by: JOSE CAMACHO DO on Sep 13 2020 1:52PM [facility] DIVISION OF RADIOLOGY * * *Final Report* * * DATE OF EXAM: Sep 13 2020 1:48PM WOX 5352 - XR HIP 3V PELV+ AP/LAT RT / PROCEDURE REASON: Hip pain * * * * Physician Interpretation * * * * Pelvis and right hip HISTORY: Indication: Hip pain TECHNIQUE: Images: XR HIP 3V PELV+ AP/LAT RT Comparison: None. RESULT: Findings: Pelvis: No fractures or dislocations are seen. Several calcifications are seen projecting over the RIGHT lower abdominal region. These could be calcifications within the kidneys or calcified lymph nodes. Right hip: No fractures or dislocations are seen. There is moderate narrowing of the RIGHT hip joint. There is marginal spurring around the hip joint. DIVISION OF RADIOLOGY Provider, Ariadne Mena - 09/13/2020 * * *Final Report* * * DATE OF EXAM: Sep 13 2020 1:48PM WOX 5352 - XR HIP 3V PELV+ AP/LAT RT / PROCEDURE REASON: Hip pain * * * * Physician Interpretation * * * * Pelvis and right hip HISTORY: Indication: Hip pain TECHNIQUE: Images: XR HIP 3V PELV+ AP/LAT RT Comparison: None. RESULT: Findings: Pelvis: No fractures or dislocations are seen. Several calcifications are seen projecting over the RIGHT lower abdominal region. These could be calcifications within the kidneys or calcified lymph nodes. Right hip: No fractures or dislocations are seen. There is moderate narrowing of the RIGHT hip joint. There is marginal spurring around the hip joint. IMPRESSION IMPRESSION: 1. Degenerative changes as discussed calcified 2. There are again noted be multiple calcifications projecting over the RIGHT lower abdomen. These could represent calcifications within the kidney or calcified lymph nodes Interventional Pain Physician: EMILI Transcribe Date/Time: Sep 13 2020 1:50P Dictated by : JOSE CAMACHO DO This examination was interpreted and the report reviewed and electronically signed by: JOSE CAMACHO DO on Sep 13 2020 1:52PM EST [facility] Radiology Study observation (narrative) [facility] XR Pelvis and Hip - right AP and Lateral frogOrdered By: Ccf Provider on 09-13-2020 [facility] OBSOLETEon 10-03-2017 OBSOLETE Refill (AGCARDWST) ----GAYLE CHO ([id number]) 1950 FDate Time Provider Department10/03/17 HARDIK PERDOMOT During your visit today, we recorded the following information about you:Bhavya Gold LPN 10/03/2017 2:45 PM SignedPatient has been identified by name and date of : YesPending Prescriptions Disp Refills PRAVASTATIN 40 MG TABLET 90 tablet 3 Sig: Take 1 tablet by mouth daily at bedtime. RINKU: NoRX INSTRUCTIONS:Patient aware RX will be sent to pharmacy. No need to notify patient.Bertha Ferrera As of Date: 10/03/2017 Noted Allergy ReactionANTIHISTIMINE 01/10/2017 5 - Intolerance Comments: Heart racing/palpitationsENALAPRIL 08/09/2007 14 - Other: See Comments Comments: Muscle myalgiasLOPRESSOR (METOPROLOL TARTRATE) 08/09/2007 14 - Other: See Comments Comments: Muscle myalgiasPENICILLINS 08/09/2007 2 - RashSYNTHROID (LEVOTHYROXINE SODIUM) 08/09/2007 14 - Other: See Comments Comments: Fatigue and jitteryDate Reviewed: 08/14/2017Reviewed by: Bhavya Gold - Fully AssessedReason for Visit: Refill Request [94]Visit Diagnosis:Hyperlipidemia, unspecified hyperlipidemia type [E78.5]Order(s):pravastatin (PRAVACHOL) 40 mg tabletTake 1 tablet by mouth daily at bedtime.Disp: 90 tabletRfl: 3Prescriptions as of 10/03/2017 Sig: PRAVASTATIN 40 MG [...] 0.5 MG TABLET Take 0.5 tablet three(3) dee*Problem List As Of Date 10/03/2017 Noted Resolved [...] More... Left arm pain [M79.602] INVALID FOR* More...Prescriptions ordered this encounter Disp Refills Start End PRAVASTATIN 40 MG TABLET 90 t* 3 10/03/2017 Route: ORAL Sig: Take 1 tablet by mouth daily at bedtime.Medications Discontinued During This Encounter pravastatin (PRAVACHOL) 40 mg tablet 30 t* 11 09/28/2016 10/03/2017 Route: ORAL Sig: Take 1 tablet by mouth daily at bedtime. Disc: Reason for discontinue is not on file. Status:Closed by BHAVYA GOLD LPN on 10/04/17 [facility] OBSOLETEon 09-13-2017 OBSOLETE Refill (AGCARDWST) ----[facility] ([id number]) 1950 [facility] HARDIK PERDOMO Daily AGCARDWST During your visit today, we recorded the following information about you:Fanny Brooke MA 09/13/2017 11:30 AM SignedPatient phones requesting refills as follows:Pending Prescriptions Disp Refills LOSARTAN 50 MG TABLET 180 tablet 3 Sig: Take 1.5 tablets by mouth once daily. RINKU: No Please review and advise.Fanny Brooke MAAllergies As of Date: 09/13/2017 Noted Allergy ReactionANTIHISTIMINE 01/10/2017 5 - Intolerance Comments: Heart racing/palpitationsENALAPRIL 08/09/2007 14 - Other: See Comments Comments: Muscle myalgiasLOPRESSOR (METOPROLOL TARTRATE) 08/09/2007 14 - Other: See Comments Comments: Muscle myalgiasPENICILLINS 08/09/2007 2 - RashSYNTHROID (LEVOTHYROXINE SODIUM) 08/09/2007 14 - Other: See Comments Comments: Fatigue and jitteryDate Reviewed: 08/14/2017Reviewed by: Bhavya Gold - Fully AssessedReason for Visit: Refill Request [94]Order(s):losartan (COZAAR) 50 mg tabletTake 1.5 tablets by mouth once daily.Disp: 180 tabletRfl: 3Prescriptions as of 09/13/2017 Sig: LOSARTAN 50 MG [...] 0.5 MG TABLET Take 0.5 tablet three(3) dee*Problem List As Of Date 09/13/2017 Noted Resolved [...] More... Left arm pain [M79.602] INVALID FOR* More...Prescriptions ordered this encounter Disp Refills Start End LOSARTAN 50 MG TABLET 180 * 3 09/13/2017 Route: ORAL Sig: Take 1.5 tablets by mouth once daily.Medications Discontinued During This Encounter losartan (COZAAR) 50 mg tablet 09/28/2016 09/13/2017 Class: Med Update Route: ORAL Sig: Take 1.5 tablets by mouth once daily. Disc: Reason for discontinue is not on file. Status:Closed by FANNY BROOKE MA on 09/13/17 [facility] 08-14-2017 [facility] Office Visit (AGCARDWST) ----GAYLE CHO ([id number]) 1950 FDate Time Provider Department08/14/17 2:30 PM HARDIK PERDOMO AGCARDWST During your visit today, we recorded the following information about you: Pulse Blood pressure Weight 64/minute 183/89 72.9 kgHardik Perdomo MD 08/15/2017 9:16 AM SignedPERTINENT CARDIAC HISTORYASHD - s/p PCI 03/01, 10/31HTNHLDMOSA - CPAPADHERENCE TO GUIDELINESACE-I or ARB for HF with prior LVEFANDlt;40 (NQF 0081) - N/AASA or Plavix for ASHD (NQF 0067) - metBeta xochitl for ASHD with prior GA or prior LVEFANDlt;40 (NQF 0070) - N/ABeta xochitl for HF with prior LVEFANDlt;40 (NQF 0083) - N/AACE-I or ARB for ASHD with DM or prior LVEFANDlt;40 (NQF 0066) - metStatin therapy for ASHD or FHL or DM - metBMI documented and plan if ANDgt;25 (NQF 0421) - lifestyle recommendation formTobacco use screening and referral (NQF 0028) - lifestyle recommendation formRecommendation for whole food, plant based diet - lifestyle recommendation formCLINICAL IMPRESSION/PLAN:Gayle Cho has inadequately controlled blood pressure. She wasstrongly advised to take losartan doses as recommended, start amlodipine asrecommended and use her CPAP as recommended. I've encouraged her to usenitroglycerin for chest discomfort and report whether it is effective.She's been advised to seek help regarding her home situation. She reports thatshe is not sleeping well because of noise in the house, coming from her animalsand her . I discussed with her the importance of getting regular sleep,supported by CPAP, if we are to control her blood pressure and decrease risk ofprogression of coronary disease.I will see her in 8 months or as needed. I've asked her give me an update in afew weeks to let me know her progress.Written and verbal health teaching given to patient, patient verbalizesunderstanding and agrees with treatment plan.DIAGNOSIS FOR VISIT:ARBOR HEALTHISTORY OF PRESENT ILLNESSGayle Cho returns for follow-up of her coronary disease. She still isunder stress. She is in a relationship which is not supportive. She speaksfreely of this. She has had intermittent episodes of chest discomfort which isexacerbated by eating. She has not taken nitroglycerin. She remarks that shehas been eating and sleeping throughout the day. She does not exercise.She has not started amlodipine. She is not using her CPAP regularly.Occasionally she skips p.m. doses of Cozaar.She's had no orthopnea. She's had minimal edema. She denies syncope, TIAs,amaurosis or claudication.ALLERGIES:ALLERG IESAllergen Reactions- Antihistimine Intolerance Heart racing/palpitations- Enalapril Other: See Comments Muscle myalgias- Lopressor [Metoprol* Other: See Comments Muscle myalgias- Penicillins Rash- Synthroid [Levothyr* Other: See Comments Fatigue and jitteryCURRENT OUTPATIENT MEDICATIONS:losartan (COZAAR) 50 mg tablet Take 1.5 tablets by mouth once daily.carvedilol (COREG) 12.5 mg tablet Take 1 tablet by mouth twice daily.pravastatin (PRAVACHOL) 40 mg tablet Take 1 tablet by mouth daily at bedtime.nitroglycerin sublingual (NITROQUICK) 0.4 mg SL tablet Dissolve 1 tablet underthe tongue as needed. FOR CHEST PAIN. IF NO RELIEF CALL 911aspirin, enteric coated (ECOTRIN LOW STRENGTH) 81 mg EC tablet Take 1 tablet bymouth once daily.levothyroxine sodium(LEVOXYL 75 MCG TAB) Take one(1) tablet daily.alprazolam(XANAX 0.5 MG TAB) Take 0.5 tablet three(3) times daily as needed.CPAPamLODIPine (NORVASC) 5 mg tablet Take 1 tablet by mouth once daily.PHYSICAL EXAMINATION:VITAL SIGNS: BP 183/89 Pulse 64 Wt 160 lb 11.2 oz (72.9kg)Chest: Clear to percussion and auscultation. Trachea is midline. Air entry isequal. Cardiac: Regular rhythm. S1 and S2 are normal. PMI is nondisplaced.There is a soft S4 gallop and a soft systolic ejection murmur. Carotids arebrisk without bruits. JVP is less than 10 cm. Abdomen: Soft and nontender.There are no pulsatile masses or bruits. No liver enlargement. Bowel soundsare active. Extremities: Trace edema. Pulses are intact and symmetrical.EKG shows sinus rhythm and is within normal limits. There is no significantchange.Laboratory studies were reviewed. Renal function is mildly impaired, butstable. LDL was 81.Electronically Signed:Hardik Perdomo [facility] 2017 3:12 [facility]: Foster Reyes Chi, MD 08/14/2017 3:12 PM SignedLIFESTYLE CHANGEA healthy lifestyle is the most important component of your overall treatmentplan. Please give serious thought to the following areas and commit to makinglong term changes.EAT A WHOLE FOOD, PLANT BASED DIETThe nutrition your body gets is more important than the medicine you take.What matters most is the overall way you eat. We encourage you to minimize theuse of animal products (which include dairy and all meats except fatty fish)and use whole, unprocessed plant foods to provide your protein, vitamins andother nutrients. We have a lot of information to share with you on this topic. We also hold Shared Medical Appointments, where you can come visit with in the company of other patients and spend over an hour talking aboutthe challenges of changing the way you eat. This is not a ANDquot;dietANDquot;.It is a way of life that you will keep with you.EXERCISE REGULARLYIt is not important to spend hours in the gym, lifting weights and perspiringheavily. A total of 2-3 hours per week of aerobic (causing you to bemoderately short of breath) exercise is sufficient to improve your health.Talk to us before you begin a new exercise program, if you have heart diseaseor experience shortness of breath or chest pain.REDUCE STRESSChronic emotional and physical stress leads to disease. Ways of reducingstress include meditation, visualization, prayer, yoga and other forms ofrelaxation therapy. Consistency is the rosas. Find a technique that works foryou and do it every day.CULTIVATE RELATIONSHIPSLoneliness and isolation have a major negative impact on health. Seek outothers who can love, care for and nurture you. Avoid hurtful relationships.MAINTAIN IDEAL BODY WEIGHTThe best way to do this is to do all the things above. Our bodies naturallyfind the right weight if we keep moving and feed ourselves the right food. Ifyour BMI is greater than 25, we strongly recommend a referral to a weightmanagement program. Please speak to us or your family physician aboutavailable programs.AVOID NICOTINE IN ALL FORMSThis includes all tobacco products, whether chewed, smoked, vaped, or rubbed onthe skin. Smoking cessation programs, which can make use of tobaccosubstitutes, medications to suppress cravings and behavior management, areavailable. Please contact your family physician about programs in your area.Referring Provider: HARDIK PERDOMO [[id number]]Allergies As of Date: 08/14/2017 Noted Allergy ReactionANTIHISTIMINE 01/10/2017 5 - Intolerance Comments: Heart racing/palpitationsENALAPRIL 08/09/2007 14 - Other: See Comments Comments: Muscle myalgiasLOPRESSOR (METOPROLOL TARTRATE) 08/09/2007 14 - Other: See Comments Comments: Muscle myalgiasPENICILLINS 08/09/2007 2 - RashSYNTHROID (LEVOTHYROXINE SODIUM) 08/09/2007 14 - Other: See Comments Comments: Fatigue and jitteryDate Reviewed: 08/14/2017Reviewed by: Bhavya Gold - Fully AssessedReason for Visit: Recheck [92]Primary Visit Diagnosis:Hypertension, essential [I10] Other Visit Diagnosis:ASHD (arteriosclerotic heart disease) [I25.10]Order(s):ECG B/O W INTERP (MED OFFICE) [ECG06] Order #: [id number] as of 08/14/2017 Sig: LOSARTAN 50 MG [...] TABLET Take 1 tablet by mouth once d*Medication notes this encounter LOSARTAN 50 MG TABLET >> Bhavya Gold LPN 08/14/2017 2:54 PM >> BHAVYA GOLD LPN SunAug 14, 2017 2:54 PM 2 tablets dailyProblem List As Of Date 08/14/2017 Noted Resolved [...] the following areas and commit to making half-way changes. EAT A WHOLE FOOD, PLANT BASED [...] your family physician about programs in your area.Follow-up and Disposition History RecordedEncounter Number: [id number] Status:Closed by HARDIK PERDOMO MD on 08/15/17 [facility] PROGRESSon 08-14-2017 PROGRESS HNO ID: [id number] thor: [place]: (none)Author Type: PhysicianType: Progress NotesFiled: 08/15/2017 9:16 AMNote Text:PERTINENT CARDIAC HISTORYASHD - s/p PCI 03/01, 10/31HTNHLDMOSA - CPAPADHERENCE TO GUIDELINESACE-I or ARB for HF with prior LVEF<40 (NQF 0081) - N/AASA or Plavix for ASHD (NQF 0067) - metBeta xochitl for ASHD with prior GA or prior LVEF<40 (NQF 0070) - N/ABeta xochitl for HF with prior LVEF<40 (NQF 0083) - N/AACE-I or ARB for ASHD with DM or prior LVEF<40 (NQF 0066) - metStatin therapy for ASHD or FHL or DM - metBMI documented and plan if >25 (NQF 0421) - lifestyle recommendation formTobacco use screening and referral (NQF 0028) - lifestyle recommendationformRecommendat ion for whole food, plant based diet - lifestyle recommendationformCLINICAL IMPRESSION/PLAN:Gayle Bautista Marquis has inadequately controlled blood pressure. She wasstrongly advised to take losartan doses as recommended, start amlodipineas recommended and use her CPAP as recommended. I've encouraged her to usenitroglycerin for chest discomfort and report whether it is effective.She's been advised to seek help regarding her home situation. She reportsthat she is not sleeping well because of noise in the house, coming fromher animals and her . I discussed with her the importance ofgetting regular sleep, supported by CPAP, if we are to control her bloodpressure and decrease risk of progression of coronary disease.I will see her in 8 months or as needed. I've asked her give me an updatein a few weeks to let me know her progress.Written and verbal health teaching given to patient, patient verbalizesunderstanding and agrees with treatment plan.DIAGNOSIS FOR VISIT:RFANCISCA OF PRESENT ILLNESSGayle Cho returns for follow-up of her coronary disease. Shestill is under stress. She is in a relationship which is not supportive.She speaks freely of this. She has had intermittent episodes of chestdiscomfort which is exacerbated by eating. She has not takennitroglycerin. She remarks that she has been eating and sleepingthroughout the day. She does not exercise.She has not started amlodipine. She is not using her CPAP regularly.Occasionally she skips p.m. doses of Cozaar.She's had no orthopnea. She's had minimal edema. She denies syncope, TIAs,amaurosis or claudication.ALLERGIES:ALLERG IESAllergen Reactions- Antihistimine Intolerance Heart racing/palpitations- Enalapril Other: See Comments Muscle myalgias- Lopressor [Metoprol* Other: See Comments Muscle myalgias- Penicillins Rash- Synthroid [Levothyr* Other: See Comments Fatigue and jitteryCURRENT OUTPATIENT MEDICATIONS:losartan (COZAAR) 50 mg tablet Take 1.5 tablets by mouth once daily.carvedilol (COREG) 12.5 mg tablet Take 1 tablet by mouth twice daily.pravastatin (PRAVACHOL) 40 mg tablet Take 1 tablet by mouth daily atbedtime.nitroglycerin sublingual (NITROQUICK) 0.4 mg SL tablet Dissolve 1 tabletunder the tongue as needed. FOR CHEST PAIN. IF NO RELIEF CALL 911aspirin, enteric coated (ECOTRIN LOW STRENGTH) 81 mg EC tablet Take 1tablet by mouth once daily.levothyroxine sodium(LEVOXYL 75 MCG TAB) Take one(1) tablet daily.alprazolam(XANAX 0.5 MG TAB) Take 0.5 tablet three(3) times daily asneeded.CPAPamLODIPine (NORVASC) 5 mg tablet Take 1 tablet by mouth once daily.PHYSICAL EXAMINATION:VITAL SIGNS: BP 183/89 Pulse 64 Wt 160 lb 11.2 oz (72.9kg)Chest: Clear to percussion and auscultation. Trachea is midline. Airentry is equal. Cardiac: Regular rhythm. S1 and S2 are normal. PMI isnondisplaced. There is a soft S4 gallop and a soft systolic ejectionmurmur. Carotids are brisk without bruits. JVP is less than 10 cm.Abdomen: Soft and nontender. There are no pulsatile masses or bruits. Noliver enlargement. Bowel sounds are active. Extremities: Trace edema.Pulses are intact and symmetrical.EKG shows sinus rhythm and is within normal limits. There is nosignificant change.Laboratory studies were reviewed. Renal function is mildly impaired, butstable. LDL was 81.Electronically Signed:Hardik Perdomo, [facility] 2017 3:12 PMCC: Parviz Ontiveros MD [facility] Vital Signs Date Time Vital Sign Value Performing Clinician Facility 01-12-2025 13:48-0400 Body mass index (BMI) [Ratio] 25.75 kg/m2 Angélica Morataya APRN.OUTPATIENT PHYSICAL THERAPIST Work Phone: [facility] 01-12-2025 13:48-0400 Body weight 68.04 kg Angélica Older ENGRAVER.OUTPATIENT PHYSICAL THERAPIST Work Phone: [facility] 01-12-2025 13:48-0400 Diastolic blood pressure 80 mm[Hg] Angélica Morataya APRN.OUTPATIENT PHYSICAL THERAPIST Work Phone: [facility] 01-12-2025 13:48-0400 Heart rate 76 /min Angélica Older ENGRAVER.OUTPATIENT PHYSICAL THERAPIST Work Phone: [facility] 01-12-2025 13:48-0400 Respiratory rate 16 /min Angélica Older ENGRAVER.OUTPATIENT PHYSICAL THERAPIST Work Phone: [facility] 01-12-2025 13:48-0400 SaO2% (BldA) [Mass fraction] 98 % Angélica Older ENGRAVER.OUTPATIENT PHYSICAL THERAPIST Work Phone: [facility] 01-12-2025 13:48-0400 Systolic blood pressure 168 mm[Hg] Angélica Older ENGRAVER.OUTPATIENT PHYSICAL THERAPIST Work Phone: [facility] 03-24-2024 16:43-0500 Diastolic blood pressure 68 mm[Hg] Jessica Clark MD Work Phone: [facility] 03-24-2024 16:43-0500 Systolic blood pressure 160 mm[Hg] Jessica Clark MD Work Phone: [facility] 03-24-2024 15:56-0500 Body mass index (BMI) [Ratio] 25.58 kg/m2 Jessica Clark MD Work Phone: [facility] 03-24-2024 15:56-0500 Body weight 67.59 kg Jessica Clark MD Work Phone: [facility] 03-24-2024 15:56-0500 Heart rate 73 /min Jessica Clark MD Work Phone: [facility] 03-24-2024 15:56-0500 Respiratory rate 16 /min Jessica Clark MD Work Phone: [facility] 01-02-2024 11:46-0400 Body mass index (BMI) [Ratio] 26.43 kg/m2 Angélica Older ENGRAVER.OUTPATIENT PHYSICAL THERAPIST Work Phone: [facility] 01-02-2024 11:46-0400 Body weight 69.85 kg Angélica Older ENGRAVER.OUTPATIENT PHYSICAL THERAPIST Work Phone: [facility] 01-02-2024 11:46-0400 Diastolic blood pressure 102 mm[Hg] Angélica Older ENGRAVER.OUTPATIENT PHYSICAL THERAPIST Work Phone: [facility] 01-02-2024 11:46-0400 Heart rate 70 /min Angélica Older ENGRAVER.OUTPATIENT PHYSICAL THERAPIST Work Phone: [facility] 01-02-2024 11:46-0400 Respiratory rate 16 /min Angélica Older ENGRAVER.OUTPATIENT PHYSICAL THERAPIST Work Phone: [facility] 01-02-2024 11:46-0400 SaO2% (BldA) [Mass fraction] 97 % Angélica Older ENGRAVER.OUTPATIENT PHYSICAL THERAPIST Work Phone: [facility] 01-02-2024 11:46-0400 Systolic blood pressure 178 mm[Hg] Angélica Older ENGRAVER.OUTPATIENT PHYSICAL THERAPIST Work Phone: [facility] 01-04-2023 21:41-0400 Diastolic blood pressure 90 mm[Hg] [facility] 01-04-2023 21:41-0400 Heart rate 87 /min [facility] 01-04-2023 21:41-0400 Respiratory rate 22 /min [facility] 01-04-2023 21:41-0400 SaO2% (BldA) [Mass fraction] 99 % [facility] 01-04-2023 21:41-0400 Systolic blood pressure 254 mm[Hg] [facility] 01-04-2023 17:36-0400 Body height 152.4 cm [facility] 01-04-2023 17:36-0400 Body mass index (BMI) [Ratio] 30.4 kg/m2 [facility] 01-04-2023 17:36-0400 Body temperature 97.9 [degF] [facility] 01-04-2023 17:36-0400 Body weight 70.76 kg [facility] 01-04-2023 16:53-0400 Body temperature 98.01 [degF] Flor Botello ENGRAVER.OUTPATIENT PHYSICAL THERAPIST Work Phone: [facility] 01-04-2023 16:53-0400 Body weight 70.76 kg Flor Botello ENGRAVER.OUTPATIENT PHYSICAL THERAPIST Work Phone: [facility] 01-04-2023 16:53-0400 Diastolic blood pressure 105 mm[Hg] Flor Botello ENGRAVER.OUTPATIENT PHYSICAL THERAPIST Work Phone: [facility] 01-04-2023 16:53-0400 Heart rate 69 /min Flor Botello ENGRAVER.OUTPATIENT PHYSICAL THERAPIST Work Phone: [facility] 01-04-2023 16:53-0400 Respiratory rate 18 /min Flor Botello ENGRAVER.OUTPATIENT PHYSICAL THERAPIST Work Phone: [facility] 01-04-2023 16:53-0400 SaO2% (BldA) [Mass fraction] 99 % Flor Botello ENGRAVER.OUTPATIENT PHYSICAL THERAPIST Work Phone: [facility] 01-04-2023 16:53-0400 Systolic blood pressure 239 mm[Hg] Flor Botello ENGRAVER.OUTPATIENT PHYSICAL THERAPIST Work Phone: [facility] 10-02-2022 18:03-0400 Body temperature 100.9 [degF] Natalee Veronique ENGRAVER.OUTPATIENT PHYSICAL THERAPIST Work Phone: [facility] 10-02-2022 18:03-0400 Body weight 70.22 kg Natalee Veronique ENGRAVER.OUTPATIENT PHYSICAL THERAPIST Work Phone: [facility] 10-02-2022 18:03-0400 Diastolic blood pressure 104 mm[Hg] Natalee Veronique ENGRAVER.OUTPATIENT PHYSICAL THERAPIST Work Phone: [facility] 10-02-2022 18:03-0400 Heart rate 78 /min Natalee Veronique ENGRAVER.OUTPATIENT PHYSICAL THERAPIST Work Phone: [facility] 10-02-2022 18:03-0400 Respiratory rate 16 /min Natalee Veronique ENGRAVER.OUTPATIENT PHYSICAL THERAPIST Work Phone: [facility] 10-02-2022 18:03-0400 SaO2% (BldA) [Mass fraction] 96 % Natalee Veronique ENGRAVER.OUTPATIENT PHYSICAL THERAPIST Work Phone: [facility] 10-02-2022 18:03-0400 Systolic blood pressure 238 mm[Hg] Natalee Veronique ENGRAVER.OUTPATIENT PHYSICAL THERAPIST Work Phone: [facility] 07-03-2022 13:50-0500 Diastolic blood pressure 74 mm[Hg] Angélica Morataya ENGRAVER.OUTPATIENT PHYSICAL THERAPIST Work Phone: [facility] 07-03-2022 13:50-0500 Heart rate 63 /min Angélica Older ENGRAVER.OUTPATIENT PHYSICAL THERAPIST Work Phone: [facility] 07-03-2022 13:50-0500 Systolic blood pressure 177 mm[Hg] Angélica Older ENGRAVER.OUTPATIENT PHYSICAL THERAPIST Work Phone: [facility] 07-03-2022 13:38-0500 Body weight 68.95 kg Angélica Older ENGRAVER.OUTPATIENT PHYSICAL THERAPIST Work Phone: [facility] 07-03-2022 13:38-0500 SaO2% (BldA) [Mass fraction] 97 % Angélica Older ENGRAVER.OUTPATIENT PHYSICAL THERAPIST Work Phone: [facility] 03-31-2022 12:03-0500 Diastolic blood pressure 80 mm[Hg] Angélica Older ENGRAVER.OUTPATIENT PHYSICAL THERAPIST Work Phone: [facility] 03-31-2022 12:03-0500 Systolic blood pressure 152 mm[Hg] Angélica Older ENGRAVER.OUTPATIENT PHYSICAL THERAPIST Work Phone: [facility] 03-31-2022 11:23-0500 Body weight 66.68 kg Angélica Older ENGRAVER.OUTPATIENT PHYSICAL THERAPIST Work Phone: [facility] 03-31-2022 11:23-0500 Heart rate 60 /min Angélica Older ENGRAVER.OUTPATIENT PHYSICAL THERAPIST Work Phone: [facility] 03-31-2022 11:23-0500 Respiratory rate 16 /min Angélica Older ENGRAVER.OUTPATIENT PHYSICAL THERAPIST Work Phone: [facility] 03-23-2022 12:15-0400 Diastolic blood pressure 83 mm[Hg] Mi Nurse Work Phone: [facility] 03-23-2022 12:15-0400 Heart rate 71 /min Mi Nurse Work Phone: [facility] 03-23-2022 12:15-0400 Systolic blood pressure 212 mm[Hg] Mi Nurse Work Phone: [facility] 10-18-2021 14:22-0400 Body temperature 99.61 [degF] Flor Botello ENGRAVER.OUTPATIENT PHYSICAL THERAPIST Work Phone: [facility] 10-18-2021 14:22-0400 Body weight 65.32 kg Flor Botello ENGRAVER.OUTPATIENT PHYSICAL THERAPIST Work Phone: [facility] 10-18-2021 14:22-0400 Diastolic blood pressure 72 mm[Hg] Flor Botello ENGRAVER.OUTPATIENT PHYSICAL THERAPIST Work Phone: [facility] 10-18-2021 14:22-0400 Heart rate 73 /min Flor Botello ENGRAVER.OUTPATIENT PHYSICAL THERAPIST Work Phone: [facility] 10-18-2021 14:22-0400 Respiratory rate 18 /min Flor Botello ENGRAVER.OUTPATIENT PHYSICAL THERAPIST Work Phone: [facility] 10-18-2021 14:22-0400 SaO2% (BldA) [Mass fraction] 98 % Flor Botello ENGRAVER.OUTPATIENT PHYSICAL THERAPIST Work Phone: [facility] 10-18-2021 14:22-0400 Systolic blood pressure 118 mm[Hg] Flor Botello ENGRAVER.OUTPATIENT PHYSICAL THERAPIST Work Phone: [facility] 08-26-2021 11:17-0400 Body temperature 98.7 [degF] Dr. Jessica Clark Work Phone: [facility] Work Phone: 08-26-2021 11:17-0400 Diastolic blood pressure 73 mm[Hg] Dr. Jessica Clark Work Phone: [facility] Work Phone: 08-26-2021 11:17-0400 Heart rate 71 /min Dr. Jessica Clark Work Phone: [facility] Work Phone: 08-26-2021 11:17-0400 Respiratory rate 16 /min Dr. Jessica Clark Work Phone: [facility] Work Phone: 08-26-2021 11:17-0400 SaO2% (BldA) [Mass fraction] 93 % Dr. Jessica Clark Work Phone: [facility] Work Phone: 08-26-2021 11:17-0400 Systolic blood pressure 164 mm[Hg] Dr. Jessica Clark Work Phone: [facility] Work Phone: 08-26-2021 07:56-0400 Body height 152.[address] Jessica Clark Work Phone: [facility] Work Phone: 08-26-2021 07:56-0400 Body mass index (BMI) [Ratio] 28.4 kg/m2 Dr. Jessica Clark Work Phone: [facility] Work Phone: 08-26-2021 07:56-0400 Body weight [address] Jessica Clark Work Phone: [facility] Work Phone: 08-17-2021 13:13-0400 Body height 162.6 cm Jessica Clark MD Work Phone: [facility] 08-17-2021 13:13-0400 Body temperature 97.81 [degF] Jessica Clark MD Work Phone: [facility] 08-17-2021 13:13-0400 Body weight 67.13 kg Jessica Clark MD Work Phone: [facility] 08-17-2021 13:13-0400 Diastolic blood pressure 84 mm[Hg] Jessica Clark MD Work Phone: [facility] 08-17-2021 13:13-0400 Heart rate 74 /min Jessica Clark MD Work Phone: [facility] 08-17-2021 13:13-0400 Respiratory rate 16 /min Jessica Clark MD Work Phone: [facility] 08-17-2021 13:13-0400 SaO2% (BldA) [Mass fraction] 97 % Jessica Clark MD Work Phone: [facility] 08-17-2021 13:13-0400 Systolic blood pressure 200 mm[Hg] Jessica Clark MD Work Phone: [facility] 08-12-2021 16:08-0400 SaO2% (BldA) [Mass fraction] 91 % Dr. Jessica Clark Work Phone: [facility] Work Phone: 08-12-2021 13:16-0400 Body temperature 98 [degF] Dr. Jessica Clark Work Phone: [facility] Work Phone: 08-12-2021 13:16-0400 Diastolic blood pressure 84 mm[Hg] Dr. Jessica Clark Work Phone: [facility] Work Phone: 08-12-2021 13:16-0400 Heart rate 79 /min Dr. Jessica Clark Work Phone: [facility] Work Phone: 08-12-2021 13:16-0400 Respiratory rate 16 /min Dr. Jessica Clark Work Phone: [facility] Work Phone: 08-12-2021 13:16-0400 Systolic blood pressure 147 mm[Hg] Dr. Jessica Clark Work Phone: [facility] Work Phone: 08-12-2021 04:54-0400 Body height 152.[address] Jessica Clark Work Phone: [facility] Work Phone: 08-12-2021 04:54-0400 Body mass index (BMI) [Ratio] 29.2 kg/m2 Dr. Jessica Clark Work Phone: [facility] Work Phone: 08-12-2021 04:54-0400 Body weight 67.[address] Jessica Clark Work Phone: [facility] Work Phone: Encounters Encounter Date Encounter Type Care Provider Facility Start: 02-09-2025 End: 02-09-2025 ambulatory ANGÉLICA MORATAYA Facility:[facility] Start: 01-23-2025 End: 01-23-2025 ambulatory JESSICA GRANADOSJAMILA Facility:[facility] Start: 01-16-2025 End: 01-22-2025 Follow-up encounter Angélica Morataya APRN.CNP Work Phone: [facility] [place] Start: 01-14-2025 ambulatory JESSICA CLARK Facility:[facility] Start: 01-14-2025 End: 01-14-2025 Subsequent hospital visit by physician Xr [facility] [place] Work Phone: Radiology Comment on above: Weakness of both low er extremities [R29.898] Start: 01-12-2025 End: 01-12-2025 Refill Angélica Morataya APRN.CNP Work Phone: [facility] Medicine [place] Comment on above: Refill Request Start: 01-12-2025 End: 01-12-2025 Office outpatient visit 25 minutes Angélica Morataya APRN.CNP Work Phone: [facility] [place] Comment on above: Other fatigue (Prima ry Dx); Lower abdominal tenderness; History of non-ST elevation myocardial infarction (NSTEMI); Muscle aches; Weakness of both lower extremities; Chest pain, unspecified type; Hypothyroidism, unspecified type; Uncontrolled hypertension; DC (obstructive sleep apnea); Urine leukocytes; Chronic midline low back pain, unspecified whether sciatica present; Bilateral hip pain; Subacute cough; Stage 3b chronic kidney disease (HCC); Prediabetes; Vitamin D deficiency; Nicotine dependence, cigarettes, uncomplicated Start: 01-05-2025 End: 01-06-2025 Refill Jessica Clark MD Work Phone: [facility] [place] Comment on above: Refill Request Start: 12-04-2024 End: 12-05-2024 Refill Jessica Clark MD Work Phone: [facility] [place] Comment on above: Refill Request Start: 10-06-2024 End: 10-06-2024 ambulatory [facility] Start: 10-06-2024 End: 10-06-2024 Patient encounter procedure Rola Gastelum [facility] [place] Comment on above: Population Health [facility] ([facility] ) Start: 10-06-2024 End: 10-06-2024 Telephone encounter Rola Gastelum [facility] [place] Start: 10-02-2024 End: 10-03-2024 Refill Jessica Clark MD Work Phone: [facility] [place] Comment on above: Refill Request Start: 09-03-2024 End: 09-03-2024 ambulatory Rola Gastelum [facility] [place] Start: 09-03-2024 End: 09-03-2024 Patient encounter procedure Rola Gastelum [facility] [place] Comment on above: Population Health Na vigation Outreach (ACO WORKBENCH [place]TI PCSA ) Start: 08-04-2024 End: 08-04-2024 ambulatory Rola Gastelum MA [facility] [place] Start: 08-04-2024 End: 08-04-2024 Patient encounter procedure Rola Gastelum MA [facility] [place] Comment on above: Population Health Na vigation Outreach (ACO WORKBENCH [place]TI ) Start: 07-03-2024 End: 07-03-2024 ambulatory Rola Gastelum MA [facility] [place] Start: 07-03-2024 End: 07-03-2024 Patient encounter procedure Rola Gastelum MA [facility] [place] Comment on above: Population Health Na vigation Outreach (ACO WORKBENC PATTI PCSA) Start: 06-25-2024 End: 06-26-2024 Refill Jessica Clark MD Work Phone: [facility] [place] Comment on above: Refill Request Start: 04-14-2024 End: 04-15-2024 Telephone encounter Jessica Clark MD Work Phone: [facility] [place] Comment on above: Patient Update Start: 04-08-2024 End: 04-08-2024 ambulatory Oskar Erickson MA [facility] [place] Start: 04-08-2024 End: 04-08-2024 Patient encounter procedure Oskar Erickson MER[facility] [place] Comment on above: Population Health Na vigation Outreach (ACO QAE Surge list 2023/) Start: 03-28-2024 End: 03-28-2024 ambulatory [facility] Facility:[facility] Start: 03-25-2024 End: 03-25-2024 ambulatory Delmar Gallegos RN Work Phone: [employer] Start: 03-25-2024 End: 03-26-2024 Telephone encounter Jessica Clark MD Work Phone: [facility] [place] Comment on above: HH orders Patient Question Start: 03-25-2024 End: 03-25-2024 Telephone follow-up Delmar Gallegos RN Work Phone: [employer] Comment on above: Transition Of Care ( [facility]- Follow-up Day 11) Started Weekly phone contact (Recurring) for Transitional Care Management Start: 03-24-2024 End: 03-24-2024 ambulatory [facility] Facility:[facility] Start: 03-24-2024 End: 03-24-2024 Office outpatient visit 25 minutes Jessica Clark MD Work Phone: [facility] [place] Comment on above: Uncontrolled hyperte nsion (Primary Dx); Vitamin D deficiency; Iron deficiency; Stage 3a chronic kidney disease (HCC); Hypothyroidism, unspecified type Start: 03-21-2024 End: 03-21-2024 ambulatory [facility]LICA [facility] Facility:[facility] Start: 03-18-2024 End: 04-03-2024 Patient Outreach Delmar Gallegos RN Work Phone: [employer] Comment on above: Transition Of Care ( [facility] Discharge 03/14/24) Initial phone contact for Transitional Care Management, Started Weekly phone contact (Recurring) for Transitional Care Management home health update Results Start: 03-14-2024 End: 03-21-2024 Telephone encounter Jessica Clark MD Work Phone: [facility] [place] Comment on above: home health requesti ng verbal orders Start: 03-12-2024 ambulatory Donnell Savage Facili ty:[facility] Start: 03-12-2024 End: 03-14-2024 Evaluation and management of inpatient [facility] Facility:[facility] Start: 03-05-2024 End: 03-05-2024 ambulatory Nirmal Zamora Facility:[facility] Start: 02-15-2024 End: 02-15-2024 Refill Jessica Clark MD Work Phone: Internal [facility] Comment on above: Refill Request Start: 02-13-2024 End: 02-13-2024 Emergency department patient visit [facility] Facility:[facility] Start: 02-08-2024 End: 02-08-2024 Telephone encounter Jessica Clark MD Work Phone: [facility] [place] Comment on above: Patient Update; Cons ult Start: 02-03-2024 End: 02-03-2024 Emergency department patient visit [facility] Facility:[facility] Start: 01-07-2024 End: 01-07-2024 Telephone encounter Angélica Morataya APRN.OUTPATIENT PHYSICAL THERAPIST Work Phone: [facility] [place] Comment on above: Results Start: 01-03-2024 Telephone encounter Angélica Morataya APRN.OUTPATIENT PHYSICAL THERAPIST Work Phone: [facility] [place] Comment on above: Results Start: 01-02-2024 End: 01-02-2024 Patient encounter procedure Angélica Morataya APRN.OUTPATIENT PHYSICAL THERAPIST Work Phone: [facility] [place] Comment on above: Right flank pain (Pr imary Dx); Lower abdominal pain; Other fatigue; Hypertensive kidney disease with stage 3a chronic kidney disease (HCC); Hypothyroidism, unspecified type; Hyperlipidemia, unspecified hyperlipidemia type; DC (obstructive sleep apnea); Vitamin D deficiency; Prediabetes; Benzodiazepine dependence (HCC) Start: 06-22-2023 Refill Jessica Walsh Work Phone: [facility] [place] Comment on above: Refill Request (90 d ays due to insurance) Start: 05-18-2023 Telephone encounter Jessica souza MD Work Phone: [facility] [place] Comment on above: Rx refill; not on me d list Start: 04-11-2023 Refill Jessica Walsh Work Phone: [facility] [place] Comment on above: Refill Request Start: 02-28-2023 Refill Sadie hopper MD Work Phone: [facility] [place] Comment on above: Refill Request Start: 01-04-2023 End: 01-04-2023 Emergency department patient visit [facility] Work Phone: Start: 01-04-2023 End: 01-04-2023 Patient encounter procedure Flor Botello ENGRAVER.OUTPATIENT PHYSICAL THERAPIST Work Phone: [facility] Comment on above: Hematuria, unspecifi ed type (Primary Dx) Start: 12-19-2022 Refill Jessica Walsh Work Phone: [facility] [place] Comment on above: Refill Request Start: 10-03-2022 Telephone encounter Natalee Piper APRN.OUTPATIENT PHYSICAL THERAPIST Work Phone: [place] [facility] Comment on above: Patient Update Start: 10-03-2022 End: 10-03-2022 Subsequent hospital visit by physician [facility] Work Phone: Radiology Comment on above: Acute cough [R05.1] Start: 10-02-2022 End: 10-02-2022 Patient encounter procedure Natalee Piper ENGRAVER.OUTPATIENT PHYSICAL THERAPIST Work Phone: [facility] Comment on above: Acute cough (Primary Dx) Start: 08-28-2022 Refill Angélica Morataya APRN .OUTPATIENT PHYSICAL THERAPIST Work Phone: [facility] [place] Comment on above: Refill Request Start: 08-28-2022 Refill Jessica Walsh Work Phone: [facility] [place] Comment on above: Refill Request Medication Request Start: 07-12-2022 ambulatory Jessica Walsh Work Phone: [facility] [place] Start: 07-03-2022 End: 07-03-2022 Patient encounter procedure Angélica Morataya APRN.OUTPATIENT PHYSICAL THERAPIST Work Phone: [facility] [place] Comment on above: Other fatigue (Prima ry Dx); Hypertension, unspecified type; Hyperlipidemia, unspecified hyperlipidemia type; Chronic cough; Depression, unspecified depression type; Prediabetes; Hypothyroidism, unspecified type; Vitamin D deficiency Start: 06-13-2022 ambulatory Jessica Walsh Work Phone: Internal [facility] Start: 04-03-2022 Telephone encounter Angélica Morataya APRN.CNP Work Phone: [facility] [place] Comment on above: Results Start: 03-31-2022 Telephone encounter Jessica souza MD Work Phone: [facility] [place] Comment on above: Blood Pressure Results Start: 03-31-2022 End: 03-31-2022 Subsequent hospital visit by physician Xr [facility] [place] Work Phone: Radiology Comment on above: Acute cough [R05.1] Start: 03-31-2022 End: 03-31-2022 Patient encounter procedure Angélica Morataya APRN.OUTPATIENT PHYSICAL THERAPIST Work Phone: [facility] [place] Comment on above: Hypertension, unspec ified type (Primary Dx); Acute cough; Hyperkalemia; Prediabetes; Urinary tract stones Start: 03-23-2022 Telephone encounter Jessica souza MD Work Phone: [facility] [place] Comment on above: Blood Pressure Check (/) Start: 03-23-2022 End: 03-23-2022 Nursing evaluation of patient and report Mi Nurse Work Phone: [facility] [place] Comment on above: Hypertension, unspec ified type (Primary Dx) Start: 03-14-2022 ambulatory Jessica Walsh Work Phone: Internal [facility] Start: 03-14-2022 Refill Angélica EugeneOUTPATIENT PHYSICAL THERAPIST Work Phone: [facility] [place] Comment on above: Refill Request Start: 02-23-2022 Telephone encounter Jessica souza MD Work Phone: [facility] [place] Comment on above: Medication Problem Start: 12-09-2021 Refill No Pcp [facility] [place] Comment on above: Refill Request Start: 10-21-2021 Telephone encounter Rola Jacinta Zavala ENGRAVER.OUTPATIENT PHYSICAL THERAPIST Work Phone: [place] [facility] Comment on above: Results Start: 10-20-2021 End: 10-20-[address] Jessica Clark Work Phone: [facility] Start: 10-19-2021 Telephone encounter None None Int [facility] Comment on above: lab results fax to Jillian Zamora Start: 10-18-2021 End: 10-18-2021 Patient encounter procedure Flor Botello ENGRAVER.OUTPATIENT PHYSICAL THERAPIST Work Phone: [place] [facility] Comment on above: Gross hematuria (Brenda nicholas Dx) Start: 10-18-2021 Telephone encounter Flor new ENGRAVER.OUTPATIENT PHYSICAL THERAPIST Work Phone: [place] [facility] Comment on above: Results Start: 08-26-2021 End: 08-26-2021 Admission to same day surgery center Dr. Jessica Clark Work Phone: [facility] Start: 08-19-2021 Telephone encounter Angélica Morataya ENGRAVER.OUTPATIENT PHYSICAL THERAPIST Work Phone: [facility] [place] Comment on above: Results Start: 08-17-2021 End: 08-17-2021 Patient encounter procedure Jessica Clark MD Work Phone: [facility] [place] Comment on above: Urinary tract infect ion without hematuria, site unspecified (Primary Dx); Urinary tract stones; Essential hypertension Start: 08-15-2021 Telephone encounter Jessica souza MD Work Phone: [facility] [place] Comment on above: Patient Update Start: 08-12-2021 Non-patient / Non-visit Dr. Mateo Clark Work Phone: [facility] Start: 08-12-2021 End: 08-12-2021 Evaluation and management of inpatient Dr. Jessica Clark Work Phone: [facility] Start: 08-04-2021 End: 08-04-2021 Subsequent hospital visit by physician Xr [facility] Work Phone: Radiology Comment on above: Onychomycosis [B35.1 ] Start: 12-29-[address] Slim Clark Work Phone: [facility] Start: 09-13-2020 End: 09-13-2020 Subsequent hospital visit by physician Xr [facility] Work Phone: Radiology Comment on above: Hip pain [M25.559] Start: 04-16-2018 Ambulatory [facility] Facility:[facility] Start: 08-14-2017 End: 08-14-2017 Ambulatory [facility] Procedures Date Procedure Procedure Detail Performing Clinician Start: 01-12-2025 Urnls dip stick/tabl et rgnt auto w/o microscopy Angélica Older ENGRAVER.OUTPATIENT PHYSICAL THERAPIST Work Phone: Start: 01-12-2025 Ecg routine ecg w/le ast 12 lds i&r only Angélica Older ENGRAVER.OUTPATIENT PHYSICAL THERAPIST Work Phone: Start: 01-02-2024 Urnls dip stick/tabl et rgnt auto w/o microscopy Angélica Older ENGRAVER.OUTPATIENT PHYSICAL THERAPIST Work Phone: Start: 01-02-2024 Lipid 1996 panel - S praveena or Plasma Angélica Older ENGRAVER.OUTPATIENT PHYSICAL THERAPIST Work Phone: Start: 01-04-2023 Urnls dip stick/tabl et rgnt auto w/o microscopy Flor Botello ENGRAVER.OUTPATIENT PHYSICAL THERAPIST Work Phone: Start: 10-03-2022 Radiologic exam ches t 2 views Natalee Veronique ENGRAVER.OUTPATIENT PHYSICAL THERAPIST Work Phone: Start: 06-28-2022 Lipid 1996 panel - S praveena or Plasma Angélica Older ENGRAVER.OUTPATIENT PHYSICAL THERAPIST Work Phone: Start: 03-31-2022 Radiologic exam ches t 2 views Angélica Older ENGRAVER.OUTPATIENT PHYSICAL THERAPIST Work Phone: Start: 10-20-2021 CT of abdomen and pe lvis without contrast Dr. Jessica Clark Work Phone: Start: 10-18-2021 Urnls dip stick/tabl et rgnt auto w/o microscopy Flor Botello ENGRAVER.OUTPATIENT PHYSICAL THERAPIST Work Phone: Start: 08-26-2021 Cystoscopy and retro grade pyelography Dr. Jessica Clark Work Phone: Start: 08-26-2021 Fluoroscopic guidance Jillian Clark Work Phone: Start: 08-23-[address] Jessica Clark Work Phone: Start: 08-12-2021 Bacteria identified in Blood by Culture Dr. Jessica Clark Work Phone: Start: 08-12-[address] Johnna Clark Work Phone: Start: 08-12-2021 End: 08-12-[address] Jessica Clark Work Phone: Start: 08-12-2021 Insertion of stent i nto ureter Dr. Jessica Clark Work Phone: Start: 08-12-2021 Fluoroscopic guidance Jillian Clark Work Phone: Start: 08-12-2021 Plain chest X-ray Dr. Slim Clark Work Phone: Start: 08-12-2021 CT of abdomen and pe lvis without contrast Dr. Jessica Clark Work Phone: Start: 08-04-2021 Radex toe minimum 2 views Rachid Ritter Work Phone: Start: 09-13-2020 Radex hip unilateral with pelvis 2-3 views Jessica lCark MD Work Phone: Start: 02-04-2019 Adult depression screening assessment Jessica Clark MD Work Phone: Start: 10-22-2012 History of placement of stent for coronary artery disease S/P coronary artery stent placement Jessica Clark MD Work Phone: Plan of Treatment Date Care Activity Detail Author Start: 01-01-2029 Lipid panel Lipid Screening [facility] Start: 01-13-2028 Diabetes Screening Diabetes Screenin g [facility] Start: 06-28-2027 Lipid panel Lipid Screening [facility] Start: 01-01-2027 Diabetes Screening Diabetes Screenin g [facility] Start: 01-12-2026 Annual PCP Team Bill Hiker yenni Disease Visit Annual PCP Team Chronic Disease Visit [facility] Start: 01-12-2026 Complete blood count Hemoglobin/Justin tocrit [facility] Start: 01-12-2026 Creatinine measurement Serum Creatin ine [facility] Start: 07-14-2025 Diabetes Screening Diabetes Screenin g [facility] Start: 03-24-2025 Annual PCP Team Bill Hiker yenni Disease Visit Annual PCP Team Chronic Disease Visit [facility] Start: 03-24-2025 Covid-19 Vaccine ( season) Covid-19 Vaccine ( season) [facility] Comment on above: Postponed from 01/19 (Declined at this time) Start: 03-24-2025 Pneumococcal Vaccine : 50+ (1 of 2 - PCV) Pneumococcal Vaccine: 50+ (1 of 2 - PCV) [facility] Comment on above: Postponed from 03/15 (Declined at this time) Start: 03-24-2025 Pneumococcal Vaccine : 65+ (1 of 2 - PCV) Pneumococcal Vaccine: 65+ (1 of 2 - PCV) [facility] Comment on above: Postponed from 03/15 (Declined at this time) Start: 03-24-2025 Screening for malign ant neoplasm of lung Lung Cancer Screening [facility] Comment on above: Postponed from 03/15 (Declined at this time) Start: 03-24-2025 Shingrix Vaccine (1 of 2) Zavala grix Vaccine (1 of 2) [facility] Comment on above: Postponed from 03/15 (Declined at this time) Start: 03-21-2025 Hepatitis B surface antibody level LDL Cholesterol [facility] Start: 02-09-2025 End: 02-09-2025 Patient encounter procedure 02/09/2025 11:40 AM EDT Office Visit [facility] [address] [place] [address] Angélica Morataya APRN.OUTPATIENT PHYSICAL THERAPIST [address] [facility] [place] [address] 4 week follow up [facility] [place] Comment on above: 4 week follow up Start: 01-23-2025 End: 01-23-2025 Patient encounter procedure 01/23/2025 8:50 AM EDT Office Visit Cardiology [address] [place] [address] Dx: Other fatigue [R53.83]; History of non-ST elevation myocardial infarction (NSTEMI) [I25.2]; Chest pain, unspecified type [R07.9]; Uncontrolled hypertension [I10]; DC (obstructive sleep apnea) [G47.33] Cardiology Comment on above: Dx: Other fatigue [R 53.83]; History of non-ST elevation myocardial infarction (NSTEMI) [I25.2]; Chest pain, unspecified type [R07.9]; Uncontrolled hypertension [I10]; DC (obstructive sleep apnea) [G47.33] Start: 01-22-2025 End: 01-22-2025 Patient encounter procedure 01/22/2025 8:00 AM EDT Office Visit Cardiology [address] [place] [id number] Dx: Other fatigue [R53.83]; History of non-ST elevation myocardial infarction (NSTEMI) [I25.2]; Chest pain, unspecified type [R07.9]; Uncontrolled hypertension [I10]; DC (obstructive sleep apnea) [G47.33] Cardiology Comment on above: Dx: Other fatigue [R 53.83]; History of non-ST elevation myocardial infarction (NSTEMI) [I25.2]; Chest pain, unspecified type [R07.9]; Uncontrolled hypertension [I10]; DC (obstructive sleep apnea) [G47.33] Start: 01-21-2025 End: 04-22-2025 LARA BY IFA SCREEN LARA BY IFA SCREEN Lab Routine Other fatigue Muscle aches Multiple joint pain Elevated sed rate Expected: 01/21/2025, Expires: 04/22/2025 [facility] Comment on above: Expected: 01/21/2025 , Expires: 04/22/2025 Start: 01-21-2025 End: 04-22-2025 Rheumatoid factor [Units/volume] in Serum or Plasma RHEUMATOID FACTOR Lab Routine Other fatigue Muscle aches Multiple joint pain Elevated sed rate Expected: 01/21/2025, Expires: 04/22/2025 [facility] Work Phone: Comment on above: Expected: 01/21/2025 , Expires: 04/22/2025 Start: 01-19-2025 Influenza vaccination [facility] Start: 01-12-2025 End: 04-13-2025 25-hydroxyvitamin D3 [Mass/volume] in Serum or Plasma VITAMIN D 25 HYDROXY Lab Routine Other fatigue Vitamin D deficiency Expected: 01/12/2025, Expires: 04/13/2025 [facility] Comment on above: Expected: 01/12/2025 , Expires: 04/13/2025 Start: 01-12-2025 End: 04-13-2025 C reactive protein [Mass/volume] in Serum or Plasma C-REACTIVE PROTEIN Lab Routine Other fatigue Muscle aches Weakness of both lower extremities Bilateral hip pain Expected: 01/12/2025, Expires: 04/13/2025 [facility] Comment on above: Expected: 01/12/2025 , Expires: 04/13/2025 Start: 01-12-2025 End: 04-13-2025 CBC W Auto Differential panel - Blood [facility] Comment on above: Expected: 01/12/2025 , Expires: 04/13/2025 Start: 01-12-2025 End: 04-13-2025 Cobalamin (Vitamin B12) [Mass/volume] in Serum or Plasma VITAMIN B12 Lab Routine Other fatigue Weakness of both lower extremities Expected: 01/12/2025, Expires: 04/13/2025 [facility] Comment on above: Expected: 01/12/2025 , Expires: 04/13/2025 Start: 01-12-2025 End: 04-13-2025 Comprehensive metabolic 2000 panel - Serum or Plasma [facility] Comment on above: Expected: 01/12/2025 , Expires: 04/13/2025 Start: 01-12-2025 End: 04-13-2025 Erythrocyte sedimentation rate [facility] Comment on above: Expected: 01/12/2025 , Expires: 04/13/2025 Start: 01-12-2025 End: 04-13-2025 Hemoglobin A1c in Blood [facility] Comment on above: Expected: 01/12/2025 , Expires: 04/13/2025 Start: 01-12-2025 End: 04-13-2025 Magnesium [Mass/volume] in Serum or Plasma [facility] Comment on above: Expected: 01/12/2025 , Expires: 04/13/2025 Start: 01-12-2025 End: 04-13-2025 Thyrotropin [Units/volume] in Serum or Plasma [facility] Comment on above: Expected: 01/12/2025 , Expires: 04/13/2025 Start: 01-12-2025 End: 04-13-2025 Thyroxine (T4) free [Mass/volume] in Serum or Plasma [facility] Comment on above: Expected: 01/12/2025 , Expires: 04/13/2025 Start: 01-12-2025 End: 04-13-2025 Triiodothyronine (T3) Free [Mass/volume] in Serum or Plasma [facility] Comment on above: Expected: 01/12/2025 , Expires: 04/13/2025 Start: 01-08-2025 End: 01-08-2025 Patient encounter procedure 01/08/2025 2:00 PM EDT Office Visit [facility] [place] [address] [place] [address] Angélica Morataya APRN.OUTPATIENT PHYSICAL THERAPIST [address] [place] [address] [employer]LL[employer] [facility] [place] Comment on above: [employer] WELLNESS Start: 01-01-2025 Annual PCP Team Bill Hiker yenni Disease Visit Annual PCP Team Chronic Disease Visit [facility] Start: 01-01-2025 Complete blood count Hemoglobin/Justin tocrit [facility] Start: 01-01-2025 Creatinine measurement Serum Creatin ine [facility] Start: 01-01-2025 Hepatitis B surface antibody level LDL Cholesterol [facility] Start: 11-17-2024 Influenza vaccination Influenza Vacc ine (#1) [facility] Comment on above: Postponed from 01/19 (Declined at this time) Start: 07-07-2024 End: 07-07-2024 Patient encounter procedure Cardiology Comment on above: Hyperlipidemia, unsp ecified hyperlipidemia type [E78.5] Start: 05-21-2024 Advance Directive Discussion Advance Directive Discussion [facility] Start: 03-25-2024 End: 06-24-2024 Urinalysis complete panel - Urine URINALYSIS WITH MICROSCOPIC, REFLEX CULTURE Lab Routine Recurrent UTI Expected: 03/25/2024, Expires: 06/24/2024 [facility] Work Phone: Comment on above: Expected: 03/25/2024 , Expires: 06/24/2024 Start: 03-24-2024 End: 03-24-2024 Patient encounter procedure [facility] [place] Comment on above: 03/05/24 [facility] F/U - K idney Stones, Sepsis 03/05/24 [facility] F/U - K idney Stones, Sepsis, (patient was to find new primary but has not yet, requesting to keep this appt) Start: 03-24-2024 End: 06-23-2024 25-hydroxyvitamin D3 [Mass/volume] in Serum or Plasma VITAMIN D 25 HYDROXY Lab Routine Vitamin D deficiency Expected: 03/24/2024, Expires: 06/23/2024 [facility] Comment on above: Expected: 03/24/2024 , Expires: 06/23/2024 Start: 03-24-2024 End: 06-23-2024 Ferritin [Mass/volume] in Serum or Plasma FERRITIN Lab Routine Iron deficiency Expected: 03/24/2024, Expires: 06/23/2024 [facility] Comment on above: Expected: 03/24/2024 , Expires: 06/23/2024 Start: 03-24-2024 End: 06-23-2024 Iron and Iron binding capacity panel - Serum or Plasma IRON AND TIBC Lab Routine Iron deficiency Expected: 03/24/2024, Expires: 06/23/2024 [facility] Work Phone: Comment on above: Expected: 03/24/2024 , Expires: 06/23/2024 Start: 02-04-2024 End: 02-04-2024 Patient encounter procedure 02/04/2024 10:20 AM EDT Office Visit [facility] [address] [place] [address] Angélica Morataya APRN.OUTPATIENT PHYSICAL THERAPIST [address] [place] [address] 4 weeks follow up [facility] [place] Comment on above: 4 weeks follow up Start: 02-01-2024 End: 05-02-2024 Lipid 1996 panel - Serum or Plasma LIPID PANEL BASIC Lab Routine Hyperlipidemia, unspecified hyperlipidemia type Expected: 02/01/2024 (Approximate), Expires: 05/02/2024 [facility] Work Phone: Comment on above: Expected: 02/01/2024 (Approximate), Expires: 05/02/2024 Start: 02-01-2024 End: 05-02-2024 Thyrotropin [Units/volume] in Serum or Plasma THYROID STIMULATING HORMONE Lab Routine Hypothyroidism, unspecified type Expected: 02/01/2024 (Approximate), Expires: 05/02/2024 [facility] Comment on above: Expected: 02/01/2024 (Approximate), Expires: 05/02/2024 Start: 02-01-2024 End: 05-02-2024 Thyroxine (T4) free [Mass/volume] in Serum or Plasma T4 FREE/FREE THYROXINE Lab Routine Hypothyroidism, unspecified type Expected: 02/01/2024 (Approximate), Expires: 05/02/2024 [facility] Comment on above: Expected: 02/01/2024 (Approximate), Expires: 05/02/2024 Start: 02-01-2024 End: 05-02-2024 Triiodothyronine (T3) Free [Mass/volume] in Serum or Plasma T3, FREE Lab Routine Hypothyroidism, unspecified type Expected: 02/01/2024 (Approximate), Expires: 05/02/2024 [facility] Comment on above: Expected: 02/01/2024 (Approximate), Expires: 05/02/2024 Start: 01-20-2024 Covid-19 Vaccine () Covid-19 Vaccine () [facility] Start: 01-20-2024 Covid-19 Vaccine () Covid-19 Vaccine () [facility] Start: 01-20-2024 Influenza vaccination Influenza Vacc ine (#1) [facility] Start: 01-02-2024 End: 04-02-2024 25-hydroxyvitamin D3 [Mass/volume] in Serum or Plasma [facility] Comment on above: Expected: 01/02/2024 , Expires: 04/02/2024 Start: 01-02-2024 End: 04-02-2024 Cobalamin (Vitamin B12) [Mass/volume] in Serum or Plasma [facility] Comment on above: Expected: 01/02/2024 , Expires: 04/02/2024 Start: 01-02-2024 End: 04-02-2024 Comprehensive metabolic 2000 panel - Serum or Plasma [facility] Comment on above: Expected: 01/02/2024 , Expires: 04/02/2024 Start: 01-02-2024 End: 04-02-2024 Hemoglobin A1c in Blood [facility] Comment on above: Expected: 01/02/2024 , Expires: 04/02/2024 Start: 01-02-2024 End: 04-02-2024 LIPID PANEL, NONFASTING [facility] Comment on above: Expected: 01/02/2024 , Expires: 04/02/2024 Start: 01-02-2024 End: 04-02-2024 Thyrotropin [Units/volume] in Serum or Plasma [facility] Work Phone: Comment on above: Expected: 01/02/2024 , Expires: 04/02/2024 Start: 01-02-2024 End: 04-02-2024 Thyroxine (T4) free [Mass/volume] in Serum or Plasma [facility] Comment on above: Expected: 01/02/2024 , Expires: 04/02/2024 Start: 01-02-2024 End: 04-02-2024 Triiodothyronine (T3) Free [Mass/volume] in Serum or Plasma [facility] Comment on above: Expected: 01/02/2024 , Expires: 04/02/2024 Start: 10-04-2023 Complete blood count Hemoglobin/Justin tocrit [facility] Start: 10-04-2023 HEMOGLOBIN/HEMATOCRIT HEMOGLOBIN/HEM ATOCRIT [facility] Start: 07-14-2023 Creatinine measurement Serum Creatin ine [facility] Start: 07-14-2023 HEMOGLOBIN/HEMATOCRIT HEMOGLOBIN/HEM ATOCRIT [facility] Start: 07-14-2023 SERUM CREATININE SERUM CREATININE Cl [facility] Start: 07-03-2023 ANNUAL PCP TEAM CAD TECHNICIAN YENNI DISEASE VISIT ANNUAL PCP TEAM CHRONIC DISEASE VISIT [facility] Start: 07-03-2023 COVID-19 VACCINE (#1) COVID-19 VACCI NE (#1) [facility] Comment on above: Postponed from 09/13 (Declined at this time) Start: 07-03-2023 HEPATITIS C SCREENING HEPATITIS C [facility] Comment on above: Postponed from 03/15 (Declined at this time) Start: 07-03-2023 Hepatitis C screening Hepatitis C [facility] Comment on above: Postponed from 03/15 (Declined at this time) Start: 07-03-2023 Pneumococcal Vaccine : 65+ (1 - PCV) Pneumococcal Vaccine: 65+ (1 - PCV) [facility] Comment on above: Postponed from 03/15 (Declined at this time) Start: 07-03-2023 Pneumococcal Vaccine : 65+ (1 of 2 - PCV) Pneumococcal Vaccine: 65+ (1 of 2 - PCV) [facility] Comment on above: Postponed from 03/15 (Declined at this time) Start: 07-03-2023 PNEUMOCOCCAL: 65+ (1 - PCV) PNEUMOCOCCAL: 65+ (1 - PCV) [facility] Comment on above: Postponed from 03/15 (Declined at this time) Start: 07-03-2023 SHINGRIX VACCINE (1 of 2) ZAVALA GRIX VACCINE (1 of 2) [facility] Comment on above: Postponed from 03/15 (Declined at this time) Start: 07-03-2023 Urine microalbumin profile [facility] Comment on above: Postponed from 03/15 (Declined at this time) Start: 06-28-2023 Hepatitis B surface antibody level LDL CHOLESTEROL [facility] Start: 05-21-2023 Advance Directive Discussion Advance Directive Discussion [facility] Start: 05-21-2023 Depression Assessment Depression Ass essment [facility] Start: 03-31-2023 ANNUAL PCP TEAM CAD TECHNICIAN YENNI DISEASE VISIT ANNUAL PCP TEAM CHRONIC DISEASE VISIT [facility] Start: 03-31-2023 [facility] Start: 03-31-2023 SERUM CREATININE SERUM CREATININE [facility] Start: 2023 RSV Vaccine (1 - 1-d ose 75+ series) RSV Vaccine (1 - 1-dose 75+ series) [facility] Start: 02-24-2023 ANNUAL PCP TEAM CAD TECHNICIAN YENNI DISEASE VISIT ANNUAL PCP TEAM CHRONIC DISEASE VISIT [facility] Start: 02-24-2023 HEMOGLOBIN/HEMATOCRIT HEMOGLOBIN/HEM [facility] Start: 02-24-2023 SERUM CREATININE SERUM CREATININE [facility] Start: 01-19-2023 Covid-19 Vaccine ( season) Covid-19 Vaccine ( season) [facility] Start: 01-19-2023 Influenza vaccination [facility] Start: 01-04-2023 End: 01-04-2023 [facility] Start: 01-04-2023 CT Abdomen and Pelvi s WO contrast [facility] Start: 01-04-2023 CT of abdomen and pe lvis without contrast Abdomen/Pelvis without Cont [facility] Start: 01-04-2023 Bacteria identified in Urine by Culture Urine Culture [facility] Start: 11-17-2022 Influenza vaccination INFLUENZA (#1) [facility] Comment on above: Postponed from 01/19 (Declined at this time) Start: 10-18-2022 BP CONTROLLED (<130/80) BP CONTROLLE D (<130/80) [facility] Start: 10-18-2022 HEMOGLOBIN/HEMATOCRIT HEMOGLOBIN/HEM [facility] Start: 10-18-2022 SERUM CREATININE SERUM CREATININE [facility] Start: 10-03-2022 End: 12-03-2022 Bacteria identified in Urine by Culture [facility] Work Phone: Comment on above: Expected: 10/03/2022 , Expires: 12/03/2022 Start: 10-03-2022 End: 12-03-2022 Urinalysis complete panel - Urine [facility] Work Phone: Comment on above: Expected: 10/03/2022 , Expires: 12/03/2022 Start: 08-17-2022 ANNUAL PCP TEAM CAD TECHNICIAN YENNI DISEASE VISIT ANNUAL PCP TEAM CHRONIC DISEASE VISIT [facility] Start: 08-04-2022 Hepatitis B surface antibody level LDL CHOLESTEROL [facility] Start: 08-04-2022 SERUM CREATININE SERUM CREATININE Cl [facility] Start: 07-03-2022 End: 09-02-2022 25-hydroxyvitamin D3 [Mass/volume] in Serum or Plasma VITAMIN D 25 HYDROXY Lab Routine Vitamin D deficiency Expected: 07/03/2022, Expires: 09/02/2022 [facility] Work Phone: Comment on above: Expected: 07/03/2022 , Expires: 09/02/2022 Start: 07-03-2022 End: 09-02-2022 CBC W Auto Differential panel - Blood CBC + DIFF Lab Routine Other fatigue Prediabetes Expected: 07/03/2022, Expires: 09/02/2022 [facility] Work Phone: Comment on above: Expected: 07/03/2022 , Expires: 09/02/2022 Start: 07-03-2022 End: 09-02-2022 Cobalamin (Vitamin B12) [Mass/volume] in Serum or Plasma VITAMIN B12 BLOOD Lab Routine Other fatigue Expected: 07/03/2022, Expires: 09/02/2022 [facility] Work Phone: Comment on above: Expected: 07/03/2022 , Expires: 09/02/2022 Start: 07-03-2022 End: 09-02-2022 Comprehensive metabolic 2000 panel - Serum or Plasma COMP METABOLIC PANEL Lab Routine Other fatigue Hypertension, unspecified type Prediabetes Expected: 07/03/2022, Expires: 09/02/2022 [facility] Work Phone: Comment on above: Expected: 07/03/2022 , Expires: 09/02/2022 Start: 07-03-2022 End: 09-02-2022 Hemoglobin A1c in Blood HGB A1C Lab Routine Other fatigue Prediabetes Expected: 07/03/2022, Expires: 09/02/2022 [facility] Work Phone: Comment on above: Expected: 07/03/2022 , Expires: 09/02/2022 Start: 07-03-2022 End: 09-02-2022 Thyrotropin [Units/volume] in Serum or Plasma TSH BLD Lab Routine Other fatigue Hypothyroidism, unspecified type Expected: 07/03/2022, Expires: 09/02/2022 [facility] Work Phone: Comment on above: Expected: 07/03/2022 , Expires: 09/02/2022 Start: 06-13-2022 End: 08-13-2022 Lipid 1996 panel - Serum or Plasma LIPID PANEL BASIC Lab Routine Hyperlipidemia Expected: 06/13/2022, Expires: 08/13/2022 [facility] Work Phone: Comment on above: Expected: 06/13/2022 , Expires: 08/13/2022 Start: 06-13-2022 End: 08-13-2022 SCHEDULE LAB TESTING SCHEDULE LAB TESTING Lab Routine Expected: 06/13/2022, Expires: 08/13/2022 [facility] Work Phone: Comment on above: Expected: 06/13/2022 , Expires: 08/13/2022 Start: 05-25-2022 HEMOGLOBIN/HEMATOCRIT HEMOGLOBIN/HEM ATOCRIT [facility] Start: 05-21-2022 ADVANCE DIRECTIVE DISCUSSION ADVANCE DIRECTIVE DISCUSSION [facility] Start: 05-21-2022 DEPRESSION ASSESSMENT DEPRESSION ASS ESSMENT [facility] Start: 03-31-2022 End: 05-31-2022 Basic metabolic 2000 panel - Serum or Plasma [facility] Work Phone: Comment on above: Expected: 03/31/2022 , Expires: 05/31/2022 Start: 03-31-2022 End: 05-31-2022 CBC W Auto Differential panel - Blood [facility] Work Phone: Comment on above: Expected: 03/31/2022 , Expires: 05/31/2022 Start: 03-14-2022 End: 05-14-2022 Hemoglobin A1c in Blood HGB A1C Lab Routine Medication management Expected: 03/14/2022, Expires: 05/14/2022 [facility] Work Phone: Comment on above: Expected: 03/14/2022 , Expires: 05/14/2022 Start: 03-14-2022 End: 05-14-2022 SCHEDULE LAB TESTING SCHEDULE LAB TESTING Lab Routine Expected: 03/14/2022, Expires: 05/14/2022 [facility] Work Phone: Comment on above: Expected: 03/14/2022 , Expires: 05/14/2022 Start: 01-19-2022 Influenza vaccination C [facility] Start: 08-26-2021 Anes lithotrp xtrcor p shock wave w/o water bath ANESTH KIDNEY STONE DESTRUCT [facility] Work Phone: Start: 08-26-2021 Cysto w/ureteroscopy w/lithotripsy CYSTOURETERO W/LITHOTRIPSY [facility] Work Phone: Start: 08-17-2021 End: 10-17-2021 Bacteria identified in Urine by Culture [facility] Work Phone: Comment on above: Expected: 08/17/2021 , Expires: 10/17/2021 Start: 08-17-2021 End: 10-17-2021 Urinalysis complete panel - Urine [facility] Work Phone: Comment on above: Expected: 08/17/2021 , Expires: 10/17/2021 Start: 08-12-2021 Bacteria identified in Blood by Culture Blood Culture [facility] Work Phone: Start: 08-12-2021 Bacteria identified in Urine by Culture Urine Culture [facility] Work Phone: Start: 05-21-2021 ADVANCE DIRECTIVE DISCUSSION ADVANCE DIRECTIVE DISCUSSION [facility] Start: 05-21-2021 DEPRESSION ASSESSMENT DEPRESSION ASS ESSMENT [facility] Start: 01-19-2021 Influenza vaccination INFLUENZA (#1) [facility] Start: 02-05-2020 Adult depression scr eening assessment DEPRESSION SCREENING [facility] Start: 2013 BONE DENSITY BONE DENSITY [facility] Start: 2013 Bone Density Screening Bone Density Screening [facility] Start: 2013 Screening for osteoporosis Bone Dens ity Screening [facility] Start: 02-18-2013 Medicare Annual Well ness Visit Medicare Annual Wellness Visit [facility] Start: 2008 Hepatitis B Vaccine (1 of 3 - Risk 3-dose series) Hepatitis B Vaccine (1 of 3 - Risk 3-dose series) [facility] Start: 2008 RSV Vaccine (1 - 1-d ose 60+ series) RSV Vaccine (1 - 1-dose 60+ series) [facility] Start: 2003 Influenza vaccination LUNG CANCER [facility] Start: 1998 Influenza vaccination LUNG CANCER [facility] Start: 1998 Screening for malign ant neoplasm of lung Lung Cancer Screening [facility] Start: 1998 SHINGRIX VACCINE (1 of 2) ZAVALA GRIX VACCINE (1 of 2) [facility] Start: 1993 COLOGUARD (FIT-DNA) COLOGUARD (FIT-D NA) [facility] Start: 1993 Colonoscopy COLONOSCOPY [facility] Start: 1993 COLORECTAL CANCER SCREENING COLORECTAL CANCER SCREENING [facility] Start: [address] COLONOGRAPHY [facility] Start: 1993 FECAL OCCULT BLOOD FECAL OCCULT BLOO D [facility] Start: 1993 Screening for malign ant neoplasm of colon [facility] Start: 1993 SIGMOIDOSCOPY SIGMOIDOSCOPY [facility] Start: 1988 Mammography [facility] Start: 1967 Urine microalbumin profile [facility] Start: 1966 Anxiety Screening Anxiety Screening [facility] Start: 1966 BP CONTROLLED (<130/80) BP CONTROLLE D (<130/80) [facility] Start: 1966 Depression Screening Depression Scre ening [facility] Start: 1966 HEPATITIS C SCREENING HEPATITIS C [facility] Start: 1966 Hepatitis C screening Hepatitis C [facility] Start: 1954 Pneumococcal Vaccine : 65+ (1 of 2 - PCV) Pneumococcal Vaccine: 65+ (1 of 2 - PCV) [facility] Start: 1954 PNEUMOCOCCAL: 65+ (1 - PCV) PNEUMOCOCCAL: 65+ (1 - PCV) [facility] Start: 1953 COVID-19 VACCINE (#1) COVID-19 VACCI NE (#1) [facility] Start: 1953 COVID-19 VACCINE (1) COVID-19 VACCIN E (1) [facility] Start: 1948 COVID-19 VACCINE (#1) COVID-19 VACCI NE (#1) [facility] Bacteria identified in Urine by Culture URINE CULTURE Microbiology Routine Gross hematuria Ordered: 10/18/2021 [facility] Work Phone: Comment on above: Ordered: 10/18/2021 Bacteria identified in Urine by Culture URINE CULTURE Microbiology Routine Right flank pain Lower abdominal pain 01/02/2024 1:02 PM EDT [facility] Bacteria identified in Urine by Culture BACTERIAL CULTURE, URINE Microbiology Routine Urine leukocytes 01/12/2025 3:32 PM EDT [facility] ECG COMPLETE ECG COMPLETE ECG Routine Other fatigue History of non-ST elevation myocardial infarction (NSTEMI) Chest pain, unspecified type 01/12/2025 2:19 PM EDT [facility] End: 01-12-2026 Echocardiography ECHO Cardiology Routine Other fatigue History of non-ST elevation myocardial infarction (NSTEMI) Chest pain, unspecified type Uncontrolled hypertension DC (obstructive sleep apnea) 1 Occurrences starting 01/12/2025 until 01/12/2026 [facility] Comment on above: 1 Occurrences starti ng 01/12/2025 until 01/12/2026 End: 08-11-2023 KALIA SCREENING KALIA SCREENING Radiology Routine Encounter for screening mammogram for breast cancer 1 Occurrences starting 07/12/2022 until 08/11/2023 [facility] Work Phone: Comment on above: 1 Occurrences starti ng 07/12/2022 until 08/11/2023 Patient Education [facility] Work Phone: Patient referral [facility] Work Phone: End: 11-01-2023 Radiologic exam chest 2 views XR CHEST 2V FRONTAL/LAT Radiology STAT Acute cough 1 Occurrences starting 10/02/2022 until 11/01/2023 [facility] Work Phone: Comment on above: 1 Occurrences starti ng 10/02/2022 until 11/01/2023 Urinalysis complete panel - Urine URINALYSIS, WITH MICROSCOPIC Lab Routine Right flank pain Lower abdominal pain 01/02/2024 1:02 PM EDT [facility] Urinalysis complete panel - Urine URINALYSIS, WITH MICROSCOPIC Lab Routine Urine leukocytes 01/12/2025 3:32 PM EDT [facility] End: 02-11-2026 XR Chest PA and Lateral XR CHEST 2V FRONTAL/LAT Radiology Routine Other fatigue Chest pain, unspecified type Subacute cough 1 Occurrences starting 01/12/2025 until 02/11/2026 [facility] Comment on above: 1 Occurrences starti ng 01/12/2025 until 02/11/2026 XR Chest PA and Lateral XR CHEST 2V FRONTAL/LAT Radiology Routine Other fatigue Chest pain, unspecified type Subacute cough 01/14/2025 1:31 PM EDT [facility] End: 02-11-2026 XR HIP BILATERAL 5V PEL/AP/LAT EACH HIP XR HIP BILATERAL 5V PEL/AP/LAT EACH HIP Radiology Routine Weakness of both lower extremities Bilateral hip pain 1 Occurrences starting 01/12/2025 until 02/11/2026 [facility] Comment on above: 1 Occurrences starti ng 01/12/2025 until 02/11/2026 XR HIP BILATERAL 5V PEL/AP/LAT EACH HIP XR HIP BILATERAL 5V PEL/AP/LAT EACH HIP Radiology Routine Weakness of both lower extremities Bilateral hip pain 01/14/2025 1:31 PM T [facility] End: 02-11-2026 XR Lumbar spine 3 Views XR LUMBAR GENERAL 3V AP/LAT/L5-S1 Radiology Routine Weakness of both lower extremities Chronic midline low back pain, unspecified whether sciatica present Bilateral hip pain 1 Occurrences starting 01/12/2025 until 02/11/2026 [facility] Work Phone: Comment on above: 1 Occurrences starti ng 01/12/2025 until 02/11/2026 XR Lumbar spine 3 Views XR LUMBA R GENERAL 3V AP/LAT/L5-S1 Radiology Routine Weakness of both lower extremities Chronic midline low back pain, unspecified whether sciatica present Bilateral hip pain 01/14/2025 1:31 PM EDT [facility] Work Phone: [facility] Payers Date Payer Category Payer Self-pay [id number] 2015 Private Health Insurance HUMANA HUMANA MEDICARE SUPPLEMENT [id number] 2015-Present [phone] [address] [address] [place] [address] Indemnity [id number] 2015 Private Health Insurance [id number] 2015 Private Health Insurance [id number] 2013 Medicare MEDICARE MEDICAR E A AND B [id number] 2013-Present [phone] [address] [address] [place] [address] Medicare [id number] 2013 Medicare [id number] 2013 Medicare [id number] Medicare [id number] Unknown [id number] Unknown [id number] Unknown [id number] Unknown [id number] Unknown [id number] Unknown [id number] Unknown [id number] Social History Date Type Detail Facility [facility] Work Phone: Start: 08-12-2021 End: 01-04-2023 Tobacco smoking status VTIS Unknown if ever smoked [facility] Start: 1950 Sex Assigned At Female [facility] Start: 05-25-2021 End: 03-24-2024 Tobacco smoking status NHIS Smokes tobacco daily [facility] History of tobacco use Cigarette Smoker C [facility] Start: 05-25-2021 End: 06-11-2023 Cigarettes smoked current (pack per day) - Reported 1 [facility] Start: 05-25-2021 End: 03-24-2024 Tobacco use and exposure Smokeless tobacco non-user [facility] Start: 08-17-2021 End: 01-12-2025 Alcohol intake Current non-drinker of alcohol (finding) [facility] Start: 1950 Sex Assigned At Not on file C [facility] Start: 08-14-2020 End: 02-23-2022 Exposure to SARS-CoV-2 (event) Not sure [facility] Work Phone: Start: 10-02-2022 End: 06-11-2023 Tobacco use panel [facility] Start: 04-21-2012 National Score (1-10 0), lower number is lower risk 34 [facility] Start: 05-30-2016 Tobacco smoking stat us NHIS Occasional tobacco smoker [facility] Start: 03-23-2014 Tobacco Comment currently using e-ci [facility] (I/We) worried wheth er (my/our) food would run out before (I/we) got money to buy more. Never true [facility] Work Phone: Medical Equipment Procedure Code Equipment Code Equipment Origin al Text Equipment Identifier Dates Cystoscopy, with retrograde pyelogram and ureteral stent insertion STENT,URETERAL PIGTAIL [id number] FDA Start: 08-12-2021 Cystoscopy, with retrograde pyelogram and ureteral stent insertion STENT,URETERAL PIGTAIL [id number] FDA Start: 08-12-2021 Cystoscopy, with retrograde pyelogram and ureteral stent insertion STENT,URETERAL PIGTAIL [id number] FDA Start: 08-12-2021 Goals Date Patient Goal Desired Activity /State Functional Status Date Assessment Result Facility 08-12-2021 Functional status Ambulates;Up ad shade [facility] Work Phone: 04-27-2016 Are you deaf, or do you have serious difficulty hearing No 04/27/2016 4:00 PM Magdalena Abraham, RANDELL No [facility] 04-27-2016 Are you blind, or do you have serious difficulty seeing, even when wearing glasses No 04/27/2016 4:00 PM Magdalean Abraham, RANDELL No [facility] 04-27-2016 Do you have serious difficulty walking or climbing stairs No 04/27/2016 4:00 PM Magdalena Abraham, RANDELL No [facility] 04-27-2016 Do you have difficul ty dressing or bathing No 04/27/2016 4:00 PM Magdalena Abraham, RANDELL No [facility] 04-27-2016 Because of a physica l, mental, or emotional condition, do you have difficulty doing errands alone such as visiting a physician's office or shopping No 04/27/2016 4:00 PM Magdalena Abraham RN No [facility] Mental Status Date Assessment Result Facility 01-04-2023 Cognitive function Level Of Cons ciousness Awake;Alert;Appropriate;Fol lows Commands [facility] Work Phone: 08-26-2021 Cognitive function Touch/Shaking [facility] Work Phone: 08-12-2021 Cognitive function Voice/Name [facility] Work Phone: 08-12-2021 Cognitive function Appropriate;Cooperativ e [facility] Work Phone: 04-27-2016 Because of a physica l, mental, or emotional condition, do you have serious difficulty concentrating, remembering, or making decisions No 04/27/2016 4:00 PM Magdalena Abraham, RANDELL No [facility] Clinical Notes 02-04-2019 to 02-09-2025 Telephone Encounter - Regla VillatoroMERI - 01/22/2025 9:57 AM EDTTelephone Encounter - IrvingRegla lyonsMERI - 01/22/2025 9:57 AM EDTTelephone Encounter - Angélica Morataya APRN.CNP - 01/21/2025 6:39 PM EDT Note Date & Type Note Facility 02-09-2025 Note HNO ID: [id number] Author: ANGÉLICA MORATAYA APRN.MT Service: ? Author Type: Nurse Practitioner Type: Progress Notes Filed: 02/09/2025 16:19 Note Text: CC: Patient presents with: Recheck: 4 week follow up HPI Gayle Cho is a 74 year old female who presents today for follow up on multiple complaints on diagnostic results. Recording using [employer] software for draft documentation of the visit was discussed with the patient/authorized customer assistance representative; all questions welcomed and answered. Patient/authorized customer assistance representative agreed to proceed Lab Results Review: - Recent lab work showed elevated ESR and positive LARA. - CRP and rheumatoid factor were normal. - Thyroid levels are stable. - Hemoglobin A1c: 6.3. - eGFR: 21. - Potassium and calcium: Slightly elevated. Has had ongoing fatigue, muscle and joint aches. Hypothyroidism: - Diagnosed in mid-40s. - Gayle Cho is taking levothyroxine; adheres to taking on an empty stomach and waiting an hour before eating. Chronic Kidney Disease: - eGFR has decreased to 21. - History of kidney stones and sepsis last year. Did not follow up with urology and needs to schedule with them at [facility]. Has not scheduled with nephrology as ordered. - Gayle reports high potassium levels despite low dietary intake of bananas. - Prolapsed bladder causing urinary incontinence and incomplete emptying. - Experiences occasional burning sensation in the abdomen. - Inadequate water intake. - Last urology visit was over a year ago; received a card in the mail to schedule an appointment in April. Hypertension: - Gayle is taking amlodipine 5 mg daily and carvedilol BID. - Reports adverse reactions to beta blockers in the past along with all other medications as well. States the only medication to help effectively is xanax which has been denied in the past. Has been told the concerns of uncontrolled blood pressure and the effects of this on other organs including kidneys along with concerns of this increasing risk of heart attack and stroke along with smoking. - Reports history of irregular heartbeats, spastic arteries, and mitral valve prolapse. - Diagnosed with left ventricular hypertrophy and grade 1 diastolic dysfunction. - Has not scheduled with cardiology as ordered. Has had ongoing left sided chest pain she has previously reported she feels is related to gas and does not occur with exertion (see previous note) Denies dyspnea, wheezing, edema, palpitations, dizziness, fever, or chills. REVIEW OF SYSTEMS See HPI PAST MEDICAL HISTORY Diagnosis Date Bowel disease Calculus of kidney Dyslipidemia Fracture Generalized osteoarthrosis, unspecified site Hypertension Hypothyroidism 02/20/2012 Mitral valve disorders(424.0) Myalgia and myositis, unspecified Non-ST elevation myocardial infarction (NSTEMI), subendocardial infarction, initial episode of care ([facility]) 02/20/2012 Type II or unspecified type diabetes mellitus without mention of complication, not stated as uncontrolled Unspecified hypothyroidism PAST SURGICAL HISTORY Procedure Laterality Date DILATION AND CURETTAGE DXAND/THER NONOBSTETRIC Dilation AND curettage PRQ CARD STENT/ATH/ANGIO 2011 x 2 TONSILLECTOMY PRIMARY/SECONDARY Tonsillectomy ALLERGIES Iv Contrast [Iodine], Anesthetics - Amide Type - Select Amino Amides, Antihistimine, Enalapril, Erythromycin, Lopressor [Metoprolol Tartrate], Penicillins, and Synthroid [Levothyroxine Sodium] MEDICATIONS levothyroxine (LEVOXYL) 100 mcg tablet Take 1 tablet by mouth once daily. Take on empty stomach. For Thyroid. carvedilol (COREG) 25 mg tablet Take 1 tablet by mouth two times a day. amLODIPine (NORVASC) 5 mg tablet Take 1 tablet by mouth once daily. Magnesium Oxide 250 mg magnesium tab Take 250 mg by mouth once daily. Lactobacillus acidophilus (ACIDOPHILUS) cap Take 1 capsule by mouth once daily. 1 billion, amLODIPine (NORVASC) 5 mg tablet Take 1 tablet by mouth once daily. nitroglycerin sublingual (NITROQUICK) 0.4 mg SL tablet Dissolve 1 tablet under the tongue as needed. FOR CHEST PAIN. IF NO RELIEF CALL 911 ergocalciferol 50,000 unit capsule (VITAMIN D2, DRISDOL) Take 1 tablet by mouth twice weekly [id number], then decrease to 1 tablet weekly. CPAP aspirin, enteric coated (ASPIRIN, ENTERIC COATED) 81 mg EC tablet Take 1 tablet by mouth once daily. History reviewed. No pertinent family history. SOCIAL HISTORY[1] PHYSICAL EXAM BP 158/66 Pulse 78 Resp 16 Wt 67.6 kg (149 lb) SpO2 100% BMI 25.58 kg/m? General Appearance: well appearing, in no acute distress, alert Pysch: good eye contact, labile mood depending on conversation. Irritable and anxious when discussing the need to get her blood pressure under control and wanting to increase her amlodipine. Lungs: Lungs clear to auscultation. No wheezing, rhonchi, rales. Heart: RRR without murmur, gallop, or rub (more content not included)... [facility] 01-22-2025 Telephone encounter Note Patient notified. [facility] 01-22-2025 Miscellaneous Notes Patient notified. Inflammatory marker is elevated. I would like to do further blood work to identify if there are any indications for autoimmune disorders. CXR without infection and other blood work in acceptable ranges. Thank you Angélica Morataya APRN.CNP documented in this encounter [facility] 01-21-2025 Telephone encounter Note Inflammatory marker is elevated. I would like to do further blood work to identify if there are any indications for autoimmune disorders. CXR without infection and other blood work in acceptable ranges. Thank you Angélica Morataya APRN.CNP [facility] 01-14-2025 History of Present illness Narrative Radiology Service Progress Note PATIENT NAME: Gayle Cho DATE OF SERVICE: January 14, 2025 TIME: 1:31 PM PATIENT IDENTITY VERIFICATION COMPLETED USING TWO (2) IDENTIFIERS: Name and Date of confirmed by patient verbally. FALL SCREENING: Has the patient had 2 falls in the last year or 1 fall with injury or currently using an Ambulatory Assistive Device (Walker, Cane, Wheelchair, Crutches, etc.)? No PATIENT GENDER DATA: Assigned female at . status: : No status: NO. PATIENT RELEVANT IMPLANT DATA REVIEWED: Yes PATIENT PRESENTS WITH AN IMPLANTABLE OR ATTACHED CREW BOSS: No RADIOLOGY DEPARTMENT: General X-ray: Exam(s) Completed: Chest X-Ray Spine X-Ray(s): Lumbar AP / LAT / L5-S1 Pelvis X-Ray: Pelvis with Hip Bilateral PERIPHERAL IV DATA: Not applicable SIGNED BY: Ulices Chiu January 14, 2025 1:31 PM documented in this encounter [facility] 01-14-2025 Note HNO ID: [id number] Author: FRANKIE PHILLIPS Tech Service: ? Author Type: Commercial Litigation Associate Type: Progress Notes Filed: 01/14/2025 13:32 Note Text: Radiology Service Progress Note PATIENT NAME: Gayle Cho DATE OF SERVICE: January 14, 2025 TIME: 1:31 PM PATIENT IDENTITY VERIFICATION COMPLETED USING TWO (2) IDENTIFIERS: Name and Date of confirmed by patient verbally. FALL SCREENING: Has the patient had 2 falls in the last year or 1 fall with injury or currently using an Ambulatory Assistive Device (Walker, Cane, Wheelchair, Crutches, etc.)? No PATIENT GENDER DATA: Assigned female at . status: : No status: NO. PATIENT RELEVANT IMPLANT DATA REVIEWED: Yes PATIENT PRESENTS WITH AN IMPLANTABLE OR ATTACHED CREW BOSS: No RADIOLOGY DEPARTMENT: General X-ray: Exam(s) Completed: Chest X-Ray Spine X-Ray(s): Lumbar AP / LAT / L5-S1 Pelvis X-Ray: Pelvis with Hip Bilateral PERIPHERAL IV DATA: Not applicable SIGNED BY: Ulices Chiu January 14, 2025 1:31 PM [facility] 01-12-2025 Instructions Angélica Morataya APRN.CNP - 01/12/2025 2:44 PM EDT - Complete a urine sample today before you leave; it will be sent for microscopic analysis and culture. - Have blood drawn today for comprehensive labs: complete blood count; kidney and liver function; electrolytes (including magnesium); thyroid hormones (TSH, T3, T4); vitamin B12; vitamin D; hemoglobin A1c; and inflammatory markers. - Proceed to radiology for a chest x-ray to evaluate your cough and chest discomfort. - Obtain x-rays of your low back and hips to assess your back and hip pain. - Schedule and complete an echocardiogram (heart ultrasound) to evaluate possible left heart enlargement. - Note that your EKG was done today and showed possible left ventricular enlargement; these results will be compared with prior studies. - After all test and imaging results are available, we will review the findings and decide on next steps, which may include physical therapy for your muscle and back pain. documented in this encounter [facility] 01-12-2025 Note HNO ID: [id number] Author: ANGÉLICA MORATAYA APRN.CNP Service: ? Author Type: Nurse Practitioner Type: Progress Notes Filed: 01/12/2025 15:45 Note Text: CC: Patient presents with: Medicare Wellness Exam: Annual Medicare Wellness HPI Gayle Cho is a 74 year old female who presents today for medicare wellness but with multiple complaints so visit focused on as many concerns as possible. Has not been seen in 10 months. Recording using Openbravo software for draft documentation of the visit was discussed with the patient/authorized customer assistance representative; all questions welcomed and answered. Patient/authorized customer assistance representative agreed to proceed Fatigue: - Persistent fatigue x1 year. - Reports ability to sleep 24 hours a day. - Attributes fatigue to antihypertensive medications. Chest Pain Has history of Uncontrolled HTN, Non-Stemi, CAD: - Intermittent left-sided chest pain, believes it may be related to gas but unsure. - Denies using nitroglycerin for chest pain relief. - Denies chest pressure with exertion. - Denies significant dyspnea, wheezing, edema, palpitations, headaches, or dizziness - Reports increased cough, attributes to smoking and possible cold. - does not follow with cardiology. [facility] in 2020 with mild mitral and tricuspid valve insufficiency and diastolic dysfunction. - Taking amlodipine and carvedilol. - Reports improved blood pressure readings today. - Took Xanax before the visit, prescribed by a account services representative previously. - has requested xanax in past visits for BP control and been denied, has had consults placed for cardiology but not established. - Taking baby aspirin. Back Pain: - Chronic back pain, worsened after a fall on a concrete stoop years ago. - Pain has progressively worsened over time. No recent evaluation for this - Reports inability to perform household tasks due to pain. Leg Pain: - Muscle aches in both legs, resembling post-charley horse pain, x2 months. - More pronounced in the right leg. - Reports difficulty walking since COVID-19 infection in 2020. - Underwent physical therapy [id number]. - Occasional sensation of legs giving out. Occasionally with a numb type of sensation. - Noticed size discrepancy between legs, with the right leg appearing smaller. Has had this ongoing for a long time. Hypothyroidism: - Taking levothyroxine daily on an empty stomach. - Expresses concern that medication may not be fully addressing symptoms due to her extreme fatigue DC: - Not using CPAP machine for several years. GI Symptoms: - Occasional constipation and loose stools. - Last bowel movement this morning was loose. - Reports abdominal pain, particularly in the lower abdomen. - Prolapsed bladder, reports incomplete emptying. - History of sepsis following kidney stone treatment last year. Denies any dark urine, pain with urination, or blood in urine. No nausea or vomiting. Social History: - Smoker. - , 4 years ago. - Has family in [place]. REVIEW OF SYSTEMS See HPI PAST MEDICAL HISTORY Diagnosis Date Bowel disease Calculus of kidney Dyslipidemia Fracture Generalized osteoarthrosis, unspecified site Hypertension Hypothyroidism 02/20/2012 Mitral valve disorders(424.0) Myalgia and myositis, unspecified Non-ST elevation myocardial infarction (NSTEMI), subendocardial infarction, initial episode of care (HCC) 02/20/2012 Type II or unspecified type diabetes mellitus without mention of complication, not stated as uncontrolled Unspecified hypothyroidism PAST SURGICAL HISTORY Procedure Laterality Date DILATION AND CURETTAGE DXAND/THER NONOBSTETRIC Dilation AND curettage PRQ CARD STENT/ATH/ANGIO 2011 x 2 TONSILLECTOMY PRIMARY/SECONDARY Tonsillectomy ALLERGIES Iv Contrast [Iodine], Anesthetics - Amide Type - Select Amino Amides, Antihistimine, Enalapril, Erythromycin, Lopressor [Metoprolol Tartrate], Penicillins, and Synthroid [Levothyroxine Sodium] MEDICATIONS carvedilol (COREG) 25 mg tablet Take 1 tablet by mouth two times a day. amLODIPine (NORVASC) 5 mg tablet Take 1 tablet by mouth once daily. Magnesium Oxide 250 mg magnesium tab Take 250 mg by mouth once daily. Lactobacillus acidophilus (ACIDOPHILUS) cap Take 1 capsule by mouth once daily. 1 billion, amLODIPine (NORVASC) 5 mg tablet Take 1 tablet by mouth once daily. nitroglycerin sublingual (NITROQUICK) 0.4 mg SL tablet Dissolve 1 tablet under the tongue as needed. FOR CHEST PAIN. IF NO RELIEF CALL 911 levothyroxine (LEVOXYL) 100 mcg tablet Take 1 tablet by mouth once daily. Take on empty stomach. For Thyroid. ergocalciferol 50,000 unit capsule (VITAMIN D2, DRISDOL) Take 1 tablet by mouth twice weekly [id number], then decrease to 1 tablet weekly. CPAP aspirin, enteric coated (ASPIRIN, ENTERIC COATED) 81 mg EC tablet Take 1 tablet by mouth once daily. History reviewed. No pertinent family history. (more content not included)... [facility] 01-12-2025 History of Present illness Narrative CC: Patient presents with: Medicare Wellness Exam: Annual Medicare Wellness HPI Gayle Cho is a 74 year old female who presents today for medicare wellness but with multiple complaints so visit focused on as many concerns as possible. Has not been seen in 10 months. Recording using Openbravo software for draft documentation of the visit was discussed with the patient/authorized customer assistance representative; all questions welcomed and answered. Patient/authorized customer assistance representative agreed to proceed Fatigue: - Persistent fatigue x1 year. - Reports ability to sleep 24 hours a day. - Attributes fatigue to antihypertensive medications. Chest Pain Has history of Uncontrolled HTN, Non-Stemi, CAD: - Intermittent left-sided chest pain, believes it may be related to gas but unsure. - Denies using nitroglycerin for chest pain relief. - Denies chest pressure with exertion. - Denies significant dyspnea, wheezing, edema, palpitations, headaches, or dizziness - Reports increased cough, attributes to smoking and possible cold. - does not follow with cardiology. [facility] in 2020 with mild mitral and tricuspid valve insufficiency and diastolic dysfunction. - Taking amlodipine and carvedilol. - Reports improved blood pressure readings today. - Took Xanax before the visit, prescribed by a account services representative previously. - has requested xanax in past visits for BP control and been denied, has had consults placed for cardiology but not established. - Taking baby aspirin. Back Pain: - Chronic back pain, worsened after a fall on a concrete stoop years ago. - Pain has progressively worsened over time. No recent evaluation for this - Reports inability to perform household tasks due to pain. Leg Pain: - Muscle aches in both legs, resembling post-charley horse pain, x2 months. - More pronounced in the right leg. - Reports difficulty walking since COVID-19 infection in 2020. - Underwent physical therapy [id number]. - Occasional sensation of legs giving out. Occasionally with a numb type of sensation. - Noticed size discrepancy between legs, with the right leg appearing smaller. Has had this ongoing for a long time. Hypothyroidism: - Taking levothyroxine daily on an empty stomach. - Expresses concern that medication may not be fully addressing symptoms due to her extreme fatigue DC: - Not using CPAP machine for several years. GI Symptoms: - Occasional constipation and loose stools. - Last bowel movement this morning was loose. - Reports abdominal pain, particularly in the lower abdomen. - Prolapsed bladder, reports incomplete emptying. - History of sepsis following kidney stone treatment last year. Denies any dark urine, pain with urination, or blood in urine. No nausea or vomiting. Social History: - Smoker. - , 4 years ago. - Has family in [place]. REVIEW OF SYSTEMS See HPI PAST MEDICAL HISTORY Diagnosis Date Bowel disease Calculus of kidney Dyslipidemia Fracture Generalized osteoarthrosis, unspecified site Hypertension Hypothyroidism 02/20/2012 Mitral valve disorders(424.0) Myalgia and myositis, unspecified Non-ST elevation myocardial infarction (NSTEMI), subendocardial infarction, initial episode of care (HCC) 02/20/2012 Type II or unspecified type diabetes mellitus without mention of complication, not stated as uncontrolled Unspecified hypothyroidism PAST SURGICAL HISTORY Procedure Laterality Date DILATION & CURETTAGE DX&/THER NONOBSTETRIC Dilation & curettage PRQ CARD STENT/ATH/ANGIO 2011 x 2 TONSILLECTOMY PRIMARY/SECONDARY <AGE 10 Tonsillectomy ALLERGIES Iv Contrast [Iodine], Anesthetics - Amide Type - Select Amino Amides, Antihistimine, Enalapril, Erythromycin, Lopressor [Metoprolol Tartrate], Penicillins, and Synthroid [Levothyroxine Sodium] MEDICATIONS carvedilol (COREG) 25 mg tablet Take 1 tablet by mouth two times a day. amLODIPine (NORVASC) 5 mg tablet Take 1 tablet by mouth once daily. Magnesium Oxide 250 mg magnesium tab Take 250 mg by mouth once daily. Lactobacillus acidophilus (ACIDOPHILUS) cap Take 1 capsule by mouth once daily. 1 billion, amLODIPine (NORVASC) 5 mg tablet Take 1 tablet by mouth once daily. nitroglycerin sublingual (NITROQUICK) 0.4 mg SL tablet Dissolve 1 tablet under the tongue as needed. FOR CHEST PAIN. IF NO RELIEF CALL 911 levothyroxine (LEVOXYL) 100 mcg tablet Take 1 tablet by mouth once daily. Take on empty stomach. For Thyroid. ergocalciferol 50,000 unit capsule (VITAMIN D2, DRISDOL) Take 1 tablet by mouth twice weekly [id number], then decrease to 1 tablet weekly. CPAP aspirin, enteric coated (ASPIRIN, ENTERIC COATED) 81 mg EC tablet Take 1 tablet by mouth once daily. History reviewed. No pertinent family history. SOCIAL HISTORY[1] PHYSICAL EXAM BP 168/80 Pulse 76 Resp 16 Wt 68 kg (150 lb) SpO2 98% BMI 25.75 kg/m General Appearance: well appearing, in no acute distress, alert Pysch: good eye contact, appears sad throughout appointment and tearful at times when discussing her health. Eyes: conjunctiva pink and moist, no icterus, sclera white, non-injected Neck: Thyroid normal size and symmetric without palpable nodules, Neck supple, No adenopathy Lymph nodes: No cervical lymphadenopathy and No supraclavicular lymphadenopathy Back: No pain to palpation, Full ROM but pain full with laying back, no deformities noted. , Reflexes 2+ and symmetric Lungs: Lungs clear to auscultation. No wheezing, rhonchi, rales. Heart: RRR without murmur, gallop, or rubs. No ectopy BUE: No deformities, edema, skin discoloration, clubbing or cyanosis. Good capillary refill. Pulses palpable Left lower Extremities: No deformities, edema, skin discoloration, clubbing or cyanosis. Good capillary refill. Right lower Extremities: No deformities, edema, skin discoloration, clubbing or cyanosis. Good capillary refill. Smaller in size and slightly duskier in color prior to elevation in leg when in compared to LLE Musculoskeletal: No joint swelling, deformity, or tenderness Neurological: Gait normal but slow and deliberate steps. Reflexes normal and symmetric. Sensation intact., speech normal, mental status intact, muscle tone normal, muscle strength normal Health maintenance reviewed with patient: Depression Screening Never done Anxiety Screening Never done Hepatitis C Screening Never done DTaP,Tdap,Td Vaccine(1 - Tdap) Never done Medicare Annual Wellness Visit Never done Bone Density Screening Never done RSV Vaccine(1 - 1-dose 75+ series) Never done Advance Directive Discussion Never done Serum Creatinine due on 01/01/2025 Hemoglobin/Hematocrit due on 01/01/2025 Lung Cancer Screening due on 03/24/2025 Shingrix Vaccine(1 of 2) due on 03/24/2025 Pneumococcal Vaccine: 50+(1 of 2 - PCV) due on 03/24/2025 Influenza Vaccine(1) due on 01/19/2025 LDL Cholesterol due on 03/21/2025 Annual PCP Team Chronic Disease Visit due on 03/24/2025 Diabetes Screening due on 01/01/2027 DATA REVIEWED: No new labs Assessment/Plan 1. Other fatigue (R53.83) 2. Muscle aches (M79.10) 3. Weakness of both lower extremities (R29.898) - These are here biggest concerns today. - Chronic fatigue and bilateral lower extremity muscle aches/weakness for several months; symptoms may be multifactorial including autoimmune with the extreme fatigue and multi joint pain and muscle pains. - Order CBC, electrolytes, magnesium, B12, vitamin D, TSH, free T4, and inflammatory markers to evaluate for metabolic, endocrine, or nutritional causes. - Order lumbar spine and bilateral hip X-rays to assess for musculoskeletal causes. - Consider physical therapy pending imaging and lab results. 4. Lower abdominal tenderness (R10.819) - Order urinalysis and urine culture to evaluate for UTI. - Order lumbar spine and bilateral hip X-rays to assess for musculoskeletal causes. - if no cause found will need further imaging - go to ER for worsening pain, fever, chills, or other urgent concerns. 5. History of non-ST elevation myocardial infarction (NSTEMI) (I25.2) 6. Chest pain, unspecified type (R07.9) 7. Uncontrolled hypertension (I10) 8. Stage 3b chronic kidney disease (HCC) (N18.32) - Occasional left-sided chest pain; EKG shows possible LVH, no acute changes. - Order echocardiogram to further evaluate LVH and cardiac function. - has uncontrolled DC, ongoing uncontrolled HTN, and previously known tricuspid and mitral valve insufficiency. - Continue amlodipine and carvedilol as prescribed. - Order BMP to monitor renal function. - Encouraged cardiology follow-up. 9. Hypothyroidism, unspecified type (E03.9) - Order TSH and free T4 to assess thyroid function. 10. DC (obstructive sleep apnea) (G47.33) - Not using CPAP for several years. Declines usage 11. Urine leukocytes (R82.998) - Urinalysis shows leukocytes and protein; send urine for microscopy and culture. 12. Chronic midline low back pain, unspecified whether sciatica present (M54.50) 13. Bilateral hip pain (M25.551) - Chronic low back and hip pain worsening over time. - Order lumbar spine and bilateral hip X-rays. - may need PT eval and/or Orthopedic 14. Subacute cough (R05.2) 15. Nicotine dependence, cigarettes, uncomplicated (F17.210) - Chronic cough, possibly worsened by smoking; patient reports possible acute upper respiratory infection. - Order chest X-ray. - declines smoking cessation at this time 16. Prediabetes (R73.03) - Order hemoglobin A1c to assess glycemic control. 17. Vitamin D deficiency (E55.9) - Order vitamin D level. Prescription instructions reviewed with patient as applicable. Potential red flag symptoms discussed with the patient. Reviewed appropriate action plan to take if red flag symptoms occur. Patient agreeable to treatment plan. Angélica Morataya APRN.OUTPATIENT PHYSICAL THERAPIST [1] Social History Tobacco Use Smoking status: Every Day Current packs/day: 1.00 Average packs/day: 1 pack/day for 45.0 years (45.0 ttl pk-yrs) Types: Cigarettes Smokeless tobacco: Never Substance Use Topics Alcohol use: No Drug use: No documented in this encounter [facility] 01-06-2025 Telephone encounter Note Due for follow up. Thank you Angélica Morataya APRN.CNP [facility] 01-06-2025 Miscellaneous Notes Due for follow up. Thank you Angélica Morataya APRN.CNP Prescription Refill Information The patient has been identified by name and date of : Yes Caregiver verified no other encounters exist for this prescription request: Yes Caregiver confirmed with patient/requestor that no other refills are due, in the near future, with this provider at this time: Yes The last office visit in the department: 03/24/24 Does the patient have a future office visit with this provider/department: Yes Requested Prescriptions Pending Prescriptions Disp Refills carvedilol (COREG) 25 mg tablet 180 tablet 3 Sig: Take 1 tablet by mouth two times a day. Patient is out of medication tomorrow. Please send today. Corazon Barcenas January 05, 2025 9:01 AM documented in this encounter [facility] 01-05-2025 Telephone encounter Note Prescription Refill Information The patient has been identified by name and date of : Yes Caregiver verified no other encounters exist for this prescription request: Yes Caregiver confirmed with patient/requestor that no other refills are due, in the near future, with this provider at this time: Yes The last office visit in the department: 03/24/24 Does the patient have a future office visit with this provider/department: Yes Requested Prescriptions Pending Prescriptions Disp Refills carvedilol (COREG) 25 mg tablet 180 tablet 3 Sig: Take 1 tablet by mouth two times a day. Patient is out of medication tomorrow. Please send today. Corazon Barcenas January 05, 2025 9:01 AM [facility] 12-23-2024 Note Patient Outreach ([facility]) ---- GAYLE CHO ([id number]) 1950 F Date Time Provider Department 12/23/24 JESSICA CLARK During your visit today, we recorded the following information about you: Allergies As of Date: 12/23/2024 Noted Allergy Reaction IV CONTRAST (IODINE) 01/27/2020 7 - Swelling 12 - Shortness of Breath Comments: Swelling in lips ANESTHETICS - AMIDE TYPE - SELECT*07/12/2019 1 - Mental Status Change ANTIHISTIMINE 01/10/2017 5 - Intolerance Comments: Heart racing/palpitations ENALAPRIL 08/09/2007 14 - Other: See Comments Comments: Muscle myalgias ERYTHROMYCIN 10/08/2018 11 - Vomiting LOPRESSOR (METOPROLOL TARTRATE) 08/09/2007 14 - Other: See Comments Comments: Muscle myalgias PENICILLINS 08/09/2007 2 - Rash SYNTHROID (LEVOTHYROXINE SODIUM) 08/09/2007 14 - Other: See Comments Comments: Fatigue and jittery Date Reviewed: 03/24/2024 Reviewed by: Roberta Lujan MA - Fully Assessed Visit Diagnoses:Hypertensive kidney disease with stage 3a chronic kidney disease (HCC) [I12.9, N18.31] Medication management [Z79.899] Order(s):ALBUMIN/CREATININE RATIO, URINE [SQUACR] Order #: [id number] FUTURE HEMOGLOBIN A1C [NUQSX0D] Order #: [id number] FUTURE COMPLETE BLOOD COUNT [SQCBC] Order #: [id number] FUTURE RENAL FUNCTION PANEL [SQRFP] Order #: [id number] FUTURE Prescriptions as of 12/26/2024 - amLODIPine (NORVASC) 5 mg tablet Take 1 tablet by mouth once daily. - carvedilol (COREG) 25 mg tablet Take 1 tablet by mouth two times a day. - Magnesium Oxide 250 mg magnesium tab Take 250 mg by mouth once daily. - Lactobacillus acidophilus (ACIDOPHILUS) cap Take 1 capsule by mouth once daily. 1 billion, - amLODIPine (NORVASC) 5 mg tablet Take 1 tablet by mouth once daily. - nitroglycerin sublingual (NITROQUICK) 0.4 mg SL tablet Dissolve 1 tablet under the tongue as needed. FOR CHEST PAIN. IF NO RELIEF CALL 911 - levothyroxine (LEVOXYL) 100 mcg tablet Take 1 tablet by mouth once daily. Take on empty stomach. For Thyroid. - ergocalciferol 50,000 unit capsule (VITAMIN D2, DRISDOL) Take 1 tablet by mouth twice weekly [id number], then decrease to 1 tablet weekly. - CPAP - aspirin, enteric coated (ASPIRIN, ENTERIC COATED) 81 mg EC tablet Take 1 tablet by mouth once daily. Problem List As Of Date 12/23/2024 Noted Resolved PAIN ABDOMEN( Right Lower Quadrant) [R10.31] 08/10/2007 History of non-ST elevation myocardial infarcti*02/20/2012 Class: Acute Uncontrolled hypertension [I10] 02/20/2012 Hypothyroidism [E03.9] 02/20/2012 Hyperlipidemia [E78.5] 02/20/2012 Class: Chronic Type II or unspecified type diabetes mellitus w*02/20/2012 11/06/2018 Coronary artery disease [I25.10] 05/27/2012 S/P coronary artery stent placement [Z95.5] 10/22/2012 Chest pain [R07.9] 04/26/2016 SUMMARY 04/27/2016 07/28/2021 Hypertensive urgency [I16.0] 04/27/2016 07/28/2021 Left arm pain [M79.602] 04/27/2016 Tobacco abuse counseling [Z71.6] 02/04/2019 07/28/2021 Bronchitis [J40] 02/04/2019 07/28/2021 Stage 3a chronic kidney disease (HCC) [N18.31] 07/28/2021 Hypertensive kidney disease with stage 3a chron*07/28/2021 Benzodiazepine dependence (HCC) [F13.20] 01/02/2024 Encounter Status:Closed by OSMAR REA on 12/26/24 [facility] 12-05-2024 Telephone encounter Note Patient found her previous medication bottle. Please disregard refill request. [facility] 12-05-2024 Miscellaneous Notes Patient found her previous medication bottle. Please disregard refill request. Prescription Refill Information The patient has been identified by name and date of : Yes Caregiver verified no other encounters exist for this prescription request: Yes Caregiver confirmed with patient/requestor that no other refills are due, in the near future, with this provider at this time: Yes NOTE: patient advised she thinks she threw away the remainder of this RX she had filled in September 2024, can a new RX be sent to [facility] [place] The last office visit in the department: 03/24/2024 Does the patient have a future office visit with this provider/department: Yes Requested Prescriptions Pending Prescriptions Disp Refills levothyroxine (LEVOXYL) 100 mcg tablet 90 tablet 3 Sig: Take 1 tablet by mouth once daily. Take on empty stomach. For Thyroid. Suzanne Sumner December 04, 2024 12:24 PM documented in this encounter [facility] 12-04-2024 Telephone encounter Note Prescription Refill Information The patient has been identified by name and date of : Yes Caregiver verified no other encounters exist for this prescription request: Yes Caregiver confirmed with patient/requestor that no other refills are due, in the near future, with this provider at this time: Yes NOTE: patient advised she thinks she threw away the remainder of this RX she had filled in September 2024, can a new RX be sent to [facility] [place] The last office visit in the department: 03/24/2024 Does the patient have a future office visit with this provider/department: Yes Requested Prescriptions Pending Prescriptions Disp Refills levothyroxine (LEVOXYL) 100 mcg tablet 90 tablet 3 Sig: Take 1 tablet by mouth once daily. Take on empty stomach. For Thyroid. Suzanne Sumner December 04, 2024 12:24 PM [facility] 10-06-2024 Note HNO ID: [id number] Author: ROLA GASTELUM MA Service: ? Author Type: Manager Payment Type: Progress Notes Filed: 10/06/2024 09:45 Note Text: POPULATION HEALTH NAVIGATION OUTREACH Action/FYI Spoke to Gayle.Scheduled AMW Topic Due (Y or N) Comments Medicare Wellness y PCP Follow up Colorectal Cancer Screening Controlling Blood Pressure y A1C HCC y Flu Vaccine Care Everywhere Reviewed MyChart Activation Updated Appointment Note Reason for Outreach Care Gap/HCC or Scheduling Wellness Visits Care Gaps due: Medicare Annual Wellness Visit Controlling Blood Pressure Patient Contacted: Spoke to patient/parent/or legal guardian Patient identified by name and : Yes Care Gap/HCC/Scheduling Wellness actions taken: Patient scheduled/pended orders: Medicare Annual Wellness Visit Controlling Blood Pressure 01/08/2025 in [facility] with OLDER, ANGÉLICA - MEDICARE WELLNESS HCC related Navigation Signature: Rola Gastelum MA October 06, 2024 8:05 AM [facility] 10-06-2024 History of Present illness Narrative POPULATION HEALTH NAVIGATION OUTREACH Action/FYI Spoke to Gayle.Scheduled AMW Topic Due (Y or N) Comments Medicare Wellness y PCP Follow up Colorectal Cancer Screening Controlling Blood Pressure y A1C HCC y Flu Vaccine Care Everywhere Reviewed MyChart Activation Updated Appointment Note Reason for Outreach Care Gap/HCC or Scheduling Wellness Visits Care Gaps due: Medicare Annual Wellness Visit Controlling Blood Pressure Patient Contacted: Spoke to patient/parent/or legal guardian Patient identified by name and : Yes Care Gap/HCC/Scheduling Wellness actions taken: Patient scheduled/pended orders: Medicare Annual Wellness Visit Controlling Blood Pressure 01/08/2025 in [facility] with OLDER, ANGÉLICA - MEDICARE WELLNESS HCC related Navigation Signature: Rola Gastelum MA October 06, 2024 8:05 AM documented in this encounter [facility] 10-06-2024 Note Patient Outreach (NE TNAV) ---- GAYLE CHO ([id number]) 1950 F Date Time Provider Department 10/06/24 ROLA GASTELUM During your visit today, we recorded the following information about you: Rola Gastelum MA 10/06/2024 9:45 AM Signed POPULATION HEALTH NAVIGATION OUTREACH Action/FYI Spoke to Gayle.Scheduled AMW Topic Due (Y or N) Comments Medicare Wellness y PCP Follow up Colorectal Cancer Screening Controlling Blood Pressure y A1C HCC y Flu Vaccine Care Everywhere Reviewed MyChart Activation Updated Appointment Note Reason for Outreach Care Gap/HCC or Scheduling Wellness Visits Care Gaps due: Medicare Annual Wellness Visit Controlling Blood Pressure Patient Contacted: Spoke to patient/parent/or legal guardian Patient identified by name and : Yes Care Gap/HCC/Scheduling Wellness actions taken: Patient scheduled/pended orders: Medicare Annual Wellness Visit Controlling Blood Pressure 01/08/2025 in [facility] with OLDER, ANGÉLICA - MEDICARE WELLNESS HCC related Navigation Signature: Rola Gastelum MA October 06, 2024 8:05 AM Allergies As of Date: 10/06/2024 Noted Allergy Reaction IV CONTRAST (IODINE) 01/27/2020 7 - Swelling 12 - Shortness of Breath Comments: Swelling in lips ANESTHETICS - AMIDE TYPE - SELECT*07/12/2019 1 - Mental Status Change ANTIHISTIMINE 01/10/2017 5 - Intolerance Comments: Heart racing/palpitations ENALAPRIL 08/09/2007 14 - Other: See Comments Comments: Muscle myalgias ERYTHROMYCIN 10/08/2018 11 - Vomiting LOPRESSOR (METOPROLOL TARTRATE) 08/09/2007 14 - Other: See Comments Comments: Muscle myalgias PENICILLINS 08/09/2007 2 - Rash SYNTHROID (LEVOTHYROXINE SODIUM) 08/09/2007 14 - Other: See Comments Comments: Fatigue and jittery Date Reviewed: 03/24/2024 Reviewed by: Roberta Lujan MA - Fully Assessed Reason for Visit: Population Health Navigation Outreach [3910] Cmt: Dedrick CRISEMELYMayank ARMSTRONG PCSA Prescriptions as of 10/06/2024 - amLODIPine (NORVASC) 5 mg tablet Take 1 tablet by mouth once daily. - carvedilol (COREG) 25 mg tablet Take 1 tablet by mouth two times a day. - Magnesium Oxide 250 mg magnesium tab Take 250 mg by mouth once daily. - Lactobacillus acidophilus (ACIDOPHILUS) cap Take 1 capsule by mouth once daily. 1 billion, - amLODIPine (NORVASC) 5 mg tablet Take 1 tablet by mouth once daily. - nitroglycerin sublingual (NITROQUICK) 0.4 mg SL tablet Dissolve 1 tablet under the tongue as needed. FOR CHEST PAIN. IF NO RELIEF CALL 911 - levothyroxine (LEVOXYL) 100 mcg tablet Take 1 tablet by mouth once daily. Take on empty stomach. For Thyroid. - ergocalciferol 50,000 unit capsule (VITAMIN D2, DRISDOL) Take 1 tablet by mouth twice weekly [id number], then decrease to 1 tablet weekly. - CPAP - aspirin, enteric coated (ASPIRIN, ENTERIC COATED) 81 mg EC tablet Take 1 tablet by mouth once daily. Problem List As Of Date 10/06/2024 Noted Resolved PAIN ABDOMEN( Right Lower Quadrant) [R10.31] 08/10/2007 History of non-ST elevation myocardial infarcti*02/20/2012 Class: Acute Uncontrolled hypertension [I10] 02/20/2012 Hypothyroidism [E03.9] 02/20/2012 Hyperlipidemia [E78.5] 02/20/2012 Class: Chronic Type II or unspecified type diabetes mellitus w*02/20/2012 11/06/2018 Coronary artery disease [I25.10] 05/27/2012 S/P coronary artery stent placement [Z95.5] 10/22/2012 Chest pain [R07.9] 04/26/2016 SUMMARY 04/27/2016 07/28/2021 Hypertensive urgency [I16.0] 04/27/2016 07/28/2021 Left arm pain [M79.602] 04/27/2016 Tobacco abuse counseling [Z71.6] 02/04/2019 07/28/2021 Bronchitis [J40] 02/04/2019 07/28/2021 Stage 3a chronic kidney disease (HCC) [N18.31] 07/28/2021 Hypertensive kidney disease with stage 3a chron*07/28/2021 Benzodiazepine dependence (HCC) [F13.20] 01/02/2024 Encounter Status:Closed by ROLA GASTELUM on 10/06/24 [facility] 10-02-2024 Telephone encounter Note Prescription Refill Information The patient has been identified by name and date of : Yes Caregiver verified no other encounters exist for this prescription request: Yes Caregiver confirmed with patient/requestor that no other refills are due, in the near future, with this provider at this time: Yes The last office visit in the department: 03/24/24 Does the patient have a future office visit with this provider/department: No Requested Prescriptions Pending Prescriptions Disp Refills amLODIPine (NORVASC) 5 mg tablet 90 tablet Sig: Take 1 tablet by mouth once daily. Sabine Reynoso October 02, 2024 2:51 PM [facility] 10-02-2024 Miscellaneous Notes Prescription Refill Information The patient has been identified by name and date of : Yes Caregiver verified no other encounters exist for this prescription request: Yes Caregiver confirmed with patient/requestor that no other refills are due, in the near future, with this provider at this time: Yes The last office visit in the department: 03/24/24 Does the patient have a future office visit with this provider/department: No Requested Prescriptions Pending Prescriptions Disp Refills amLODIPine (NORVASC) 5 mg tablet 90 tablet Sig: Take 1 tablet by mouth once daily. Sabine Reynoso October 02, 2024 2:51 PM documented in this encounter [facility] 09-03-2024 Note HNO ID: [id number] Author: ROLA GASTELUM MA Service: ? Author Type: Manager Payment Type: Progress Notes Filed: 09/03/2024 12:07 Note Text: POPULATION HEALTH NAVIGATION OUTREACH Action/FYI LVM NO MYCHART Topic Due (Y or N) Comments Medicare Wellness Y PCP Follow up Colorectal Cancer Screening Controlling Blood Pressure Y A1C HCC Y Flu Vaccine Care Everywhere Reviewed MyChart Activation Updated Appointment Note Reason for Outreach Care Gap/HCC or Scheduling Wellness Visits Care Gaps due: Medicare Annual Wellness Visit Controlling Blood Pressure Patient Contacted: Unable or unnecessary to reach patient: Left message HCC related Navigation Signature: Rola Gastelum MA September 03, 2024 7:45 AM [facility] 09-03-2024 History of Present illness Narrative POPULATION HEALTH NAVIGATION OUTREACH Action/FYI LVM NO MYCHART Topic Due (Y or N) Comments Medicare Wellness Y PCP Follow up Colorectal Cancer Screening Controlling Blood Pressure Y A1C HCC Y Flu Vaccine Care Everywhere Reviewed MyChart Activation Updated Appointment Note Reason for Outreach Care Gap/HCC or Scheduling Wellness Visits Care Gaps due: Medicare Annual Wellness Visit Controlling Blood Pressure Patient Contacted: Unable or unnecessary to reach patient: Left message HCC related Navigation Signature: Rola Gastelum MA September 03, 2024 7:45 AM documented in this encounter [facility] 09-03-2024 Note Patient Outreach (NE TNAV) ---- GAYLE CHO ([id number]) 1950 F Date Time Provider Department 09/03/24 ROLA GASTELUM NETNAV During your visit today, we recorded the following information about you: Rola Gastelum MA 09/03/2024 12:07 PM Addendum POPULATION HEALTH NAVIGATION OUTREACH Action/FYI LVM NO MYCHART Topic Due (Y or N) Comments Medicare Wellness Y PCP Follow up Colorectal Cancer Screening Controlling Blood Pressure Y A1C HCC Y Flu Vaccine Care Everywhere Reviewed MyChart Activation Updated Appointment Note Reason for Outreach Care Gap/HCC or Scheduling Wellness Visits Care Gaps due: Medicare Annual Wellness Visit Controlling Blood Pressure Patient Contacted: Unable or unnecessary to reach patient: Left message HCC related Navigation Signature: Rola Gastelum MA September 03, 2024 7:45 AM Allergies As of Date: 09/03/2024 Noted Allergy Reaction IV CONTRAST (IODINE) 01/27/2020 7 - Swelling 12 - Shortness of Breath Comments: Swelling in lips ANESTHETICS - AMIDE TYPE - SELECT*07/12/2019 1 - Mental Status Change ANTIHISTIMINE 01/10/2017 5 - Intolerance Comments: Heart racing/palpitations ENALAPRIL 08/09/2007 14 - Other: See Comments Comments: Muscle myalgias ERYTHROMYCIN 10/08/2018 11 - Vomiting LOPRESSOR (METOPROLOL TARTRATE) 08/09/2007 14 - Other: See Comments Comments: Muscle myalgias PENICILLINS 08/09/2007 2 - Rash SYNTHROID (LEVOTHYROXINE SODIUM) 08/09/2007 14 - Other: See Comments Comments: Fatigue and jittery Date Reviewed: 03/24/2024 Reviewed by: Roberta Lujan MA - Fully Assessed Reason for Visit: Population Health Navigation Outreach [3910] Cmt: FRIDA ARMSTRONG PCSA Prescriptions as of 09/03/2024 - carvedilol (COREG) 25 mg tablet Take 1 tablet by mouth two times a day. - amLODIPine (NORVASC) 5 mg tablet Take 5 mg by mouth once daily. - Magnesium Oxide 250 mg magnesium tab Take 250 mg by mouth once daily. - Lactobacillus acidophilus (ACIDOPHILUS) cap Take 1 capsule by mouth once daily. 1 billion, - amLODIPine (NORVASC) 5 mg tablet Take 1 tablet by mouth once daily. - nitroglycerin sublingual (NITROQUICK) 0.4 mg SL tablet Dissolve 1 tablet under the tongue as needed. FOR CHEST PAIN. IF NO RELIEF CALL 911 - levothyroxine (LEVOXYL) 100 mcg tablet Take 1 tablet by mouth once daily. Take on empty stomach. For Thyroid. - ergocalciferol 50,000 unit capsule (VITAMIN D2, DRISDOL) Take 1 tablet by mouth twice weekly [id number], then decrease to 1 tablet weekly. - CPAP - aspirin, enteric coated (ASPIRIN, ENTERIC COATED) 81 mg EC tablet Take 1 tablet by mouth once daily. Problem List As Of Date 09/03/2024 Noted Resolved PAIN ABDOMEN( Right Lower Quadrant) [R10.31] 08/10/2007 History of non-ST elevation myocardial infarcti*02/20/2012 Class: Acute Uncontrolled hypertension [I10] 02/20/2012 Hypothyroidism [E03.9] 02/20/2012 Hyperlipidemia [E78.5] 02/20/2012 Class: Chronic Type II or unspecified type diabetes mellitus w*02/20/2012 11/06/2018 Coronary artery disease [I25.10] 05/27/2012 S/P coronary artery stent placement [Z95.5] 10/22/2012 Chest pain [R07.9] 04/26/2016 SUMMARY 04/27/2016 07/28/2021 Hypertensive urgency [I16.0] 04/27/2016 07/28/2021 Left arm pain [M79.602] 04/27/2016 Tobacco abuse counseling [Z71.6] 02/04/2019 07/28/2021 Bronchitis [J40] 02/04/2019 07/28/2021 Stage 3a chronic kidney disease (HCC) [N18.31] 07/28/2021 Hypertensive kidney disease with stage 3a chron*07/28/2021 Benzodiazepine dependence (HCC) [F13.20] 01/02/2024 Encounter Status:Closed by ROLA GASTELUM on 09/03/24 [facility] 08-04-2024 Note HNO ID: [id number] Author: ROLA GASTELUM MA Service: ? Author Type: Manager Payment Type: Progress Notes Filed: 08/04/2024 15:49 Note Text: POPULATION HEALTH NAVIGATION OUTREACH Action/FYI LVM NO MYCHART MESSAGE Topic Due (Y or N) Comments Medicare Wellness Y DUE AFTER 8-24- PCP Follow up Colorectal Cancer Screening Controlling Blood Pressure Y A1C HCC Y Flu Vaccine Care Everywhere Reviewed MyChart Activation Updated Appointment Note Reason for Outreach Care Gap/HCC or Scheduling Wellness Visits Care Gaps due: Medicare Annual Wellness Visit Controlling Blood Pressure Patient Contacted: Unable or unnecessary to reach patient: Left message HCC related Navigation Signature: Rola Gastelum MA August 04, 2024 9:25 AM [facility] 08-04-2024 History of Present illness Narrative POPULATION HEALTH NAVIGATION OUTREACH Action/FYI LVM NO MYCHART MESSAGE Topic Due (Y or N) Comments Medicare Wellness Y DUE AFTER 8-24- PCP Follow up Colorectal Cancer Screening Controlling Blood Pressure Y A1C HCC Y Flu Vaccine Care Everywhere Reviewed MyChart Activation Updated Appointment Note Reason for Outreach Care Gap/HCC or Scheduling Wellness Visits Care Gaps due: Medicare Annual Wellness Visit Controlling Blood Pressure Patient Contacted: Unable or unnecessary to reach patient: Left message HCC related Navigation Signature: Rola Gastelum MA August 04, 2024 9:25 AM documented in this encounter [facility] 08-04-2024 Note Patient Outreach (NE JERADAV) ---- GAYLE CHO ([id number]) 1950 F Date Time Provider Department 08/04/24 ROLA GASTELUM NETNAV During your visit today, we recorded the following information about you: Rola Gastelum MA 08/04/2024 3:49 PM Signed POPULATION HEALTH NAVIGATION OUTREACH Action/FYI LVM NO MYCHART MESSAGE Topic Due (Y or N) Comments Medicare Wellness Y DUE AFTER 8-24- PCP Follow up Colorectal Cancer Screening Controlling Blood Pressure Y A1C HCC Y Flu Vaccine Care Everywhere Reviewed MyChart Activation Updated Appointment Note Reason for Outreach Care Gap/HCC or Scheduling Wellness Visits Care Gaps due: Medicare Annual Wellness Visit Controlling Blood Pressure Patient Contacted: Unable or unnecessary to reach patient: Left message HCC related Navigation Signature: Rola Gastelum MA August 04, 2024 9:25 AM Allergies As of Date: 08/04/2024 Noted Allergy Reaction IV CONTRAST (IODINE) 01/27/2020 7 - Swelling 12 - Shortness of Breath Comments: Swelling in lips ANESTHETICS - AMIDE TYPE - SELECT*07/12/2019 1 - Mental Status Change ANTIHISTIMINE 01/10/2017 5 - Intolerance Comments: Heart racing/palpitations ENALAPRIL 08/09/2007 14 - Other: See Comments Comments: Muscle myalgias ERYTHROMYCIN 10/08/2018 11 - Vomiting LOPRESSOR (METOPROLOL TARTRATE) 08/09/2007 14 - Other: See Comments Comments: Muscle myalgias PENICILLINS 08/09/2007 2 - Rash SYNTHROID (LEVOTHYROXINE SODIUM) 08/09/2007 14 - Other: See Comments Comments: Fatigue and jittery Date Reviewed: 03/24/2024 Reviewed by: Roberta Lujan MA - Fully Assessed Reason for Visit: Population Health Navigation Outreach [3910] [facility] Prescriptions as of 08/04/2024 - carvedilol (COREG) 25 mg tablet Take 1 tablet by mouth two times a day. - amLODIPine (NORVASC) 5 mg tablet Take 5 mg by mouth once daily. - Magnesium Oxide 250 mg magnesium tab Take 250 mg by mouth once daily. - Lactobacillus acidophilus (ACIDOPHILUS) cap Take 1 capsule by mouth once daily. 1 billion, - amLODIPine (NORVASC) 5 mg tablet Take 1 tablet by mouth once daily. - nitroglycerin sublingual (NITROQUICK) 0.4 mg SL tablet Dissolve 1 tablet under the tongue as needed. FOR CHEST PAIN. IF NO RELIEF CALL 911 - levothyroxine (LEVOXYL) 100 mcg tablet Take 1 tablet by mouth once daily. Take on empty stomach. For Thyroid. - ergocalciferol 50,000 unit capsule (VITAMIN D2, DRISDOL) Take 1 tablet by mouth twice weekly [id number], then decrease to 1 tablet weekly. - CPAP - aspirin, enteric coated (ASPIRIN, ENTERIC COATED) 81 mg EC tablet Take 1 tablet by mouth once daily. Problem List As Of Date 08/04/2024 Noted Resolved PAIN ABDOMEN( Right Lower Quadrant) [R10.31] 08/10/2007 History of non-ST elevation myocardial infarcti*02/20/2012 Class: Acute Uncontrolled hypertension [I10] 02/20/2012 Hypothyroidism [E03.9] 02/20/2012 Hyperlipidemia [E78.5] 02/20/2012 Class: Chronic Type II or unspecified type diabetes mellitus w*02/20/2012 11/06/2018 Coronary artery disease [I25.10] 05/27/2012 S/P coronary artery stent placement [Z95.5] 10/22/2012 Chest pain [R07.9] 04/26/2016 SUMMARY 04/27/2016 07/28/2021 Hypertensive urgency [I16.0] 04/27/2016 07/28/2021 Left arm pain [M79.602] 04/27/2016 Tobacco abuse counseling [Z71.6] 02/04/2019 07/28/2021 Bronchitis [J40] 02/04/2019 07/28/2021 Stage 3a chronic kidney disease (HCC) [N18.31] 07/28/2021 Hypertensive kidney disease with stage 3a chron*07/28/2021 Benzodiazepine dependence (HCC) [F13.20] 01/02/2024 Encounter Status:Closed by ROLA GASTELUM on 08/04/24 [facility] 07-03-2024 Note HNO ID: [id number] Author: ROLA GASTELUM MA Service: ? Author Type: Manager Payment Type: Progress Notes Filed: 07/03/2024 09:56 Note Text: POPULATION HEALTH NAVIGATION OUTREACH Action/FYI LVM NO MYCHART Topic Due (Y or N) Comments Medicare Wellness Y PCP Follow up Colorectal Cancer Screening Controlling Blood Pressure Y A1C HCC Y Flu Vaccine Care Everywhere Reviewed MyChart Activation Updated Appointment Note Reason for Outreach Care Gap/HCC or Scheduling Wellness Visits Care Gaps due: Physical Annual Wellness Visit Controlling Blood Pressure Flu Vaccine Patient Contacted: Unable or unnecessary to reach patient: Left message HCC related Navigation Signature: Rola Gastelum MA July 03, 2024 9:45 AM [facility] 07-03-2024 History of Present illness Narrative POPULATION HEALTH NAVIGATION OUTREACH Action/FYI LVM NO MYCHART Topic Due (Y or N) Comments Medicare Wellness Y PCP Follow up Colorectal Cancer Screening Controlling Blood Pressure Y A1C HCC Y Flu Vaccine Care Everywhere Reviewed MyChart Activation Updated Appointment Note Reason for Outreach Care Gap/HCC or Scheduling Wellness Visits Care Gaps due: Physical Annual Wellness Visit Controlling Blood Pressure Flu Vaccine Patient Contacted: Unable or unnecessary to reach patient: Left message HCC related Navigation Signature: Rola Gastelum MA July 03, 2024 9:45 AM documented in this encounter [facility] 07-03-2024 Note Patient Outreach (NE TNAV) ---- GAYLE CHO ([id number]) 1950 F Date Time Provider Department 07/03/24 ROLA GASTELUM NETNAV During your visit today, we recorded the following information about you: Rola Gastelum MA 07/03/2024 9:56 AM Signed POPULATION HEALTH NAVIGATION OUTREACH Action/FYI LVM NO MYCHART Topic Due (Y or N) Comments Medicare Wellness Y PCP Follow up Colorectal Cancer Screening Controlling Blood Pressure Y A1C HCC Y Flu Vaccine Care Everywhere Reviewed MyChart Activation Updated Appointment Note Reason for Outreach Care Gap/HCC or Scheduling Wellness Visits Care Gaps due: Physical Annual Wellness Visit Controlling Blood Pressure Flu Vaccine Patient Contacted: Unable or unnecessary to reach patient: Left message HCC related Navigation Signature: Rola Gastelum MA July 03, 2024 9:45 AM Allergies As of Date: 07/03/2024 Noted Allergy Reaction IV CONTRAST (IODINE) 01/27/2020 7 - Swelling 12 - Shortness of Breath Comments: Swelling in lips ANESTHETICS - AMIDE TYPE - SELECT*07/12/2019 1 - Mental Status Change ANTIHISTIMINE 01/10/2017 5 - Intolerance Comments: Heart racing/palpitations ENALAPRIL 08/09/2007 14 - Other: See Comments Comments: Muscle myalgias ERYTHROMYCIN 10/08/2018 11 - Vomiting LOPRESSOR (METOPROLOL TARTRATE) 08/09/2007 14 - Other: See Comments Comments: Muscle myalgias PENICILLINS 08/09/2007 2 - Rash SYNTHROID (LEVOTHYROXINE SODIUM) 08/09/2007 14 - Other: See Comments Comments: Fatigue and jittery Date Reviewed: 03/24/2024 Reviewed by: Roberta Lujan MA - Fully Assessed Reason for Visit: Population Health Navigation Outreach [3910] Cmt: FRIDA CRISEMELYMayank ARMSTRONG PCSA Prescriptions as of 07/03/2024 - carvedilol (COREG) 25 mg tablet Take 1 tablet by mouth two times a day. - amLODIPine (NORVASC) 5 mg tablet Take 5 mg by mouth once daily. - Magnesium Oxide 250 mg magnesium tab Take 250 mg by mouth once daily. - Lactobacillus acidophilus (ACIDOPHILUS) cap Take 1 capsule by mouth once daily. 1 billion, - amLODIPine (NORVASC) 5 mg tablet Take 1 tablet by mouth once daily. - nitroglycerin sublingual (NITROQUICK) 0.4 mg SL tablet Dissolve 1 tablet under the tongue as needed. FOR CHEST PAIN. IF NO RELIEF CALL 911 - levothyroxine (LEVOXYL) 100 mcg tablet Take 1 tablet by mouth once daily. Take on empty stomach. For Thyroid. - ergocalciferol 50,000 unit capsule (VITAMIN D2, DRISDOL) Take 1 tablet by mouth twice weekly [id number], then decrease to 1 tablet weekly. - CPAP - aspirin, enteric coated (ASPIRIN, ENTERIC COATED) 81 mg EC tablet Take 1 tablet by mouth once daily. Problem List As Of Date 07/03/2024 Noted Resolved PAIN ABDOMEN( Right Lower Quadrant) [R10.31] 08/10/2007 History of non-ST elevation myocardial infarcti*02/20/2012 Class: Acute Uncontrolled hypertension [I10] 02/20/2012 Hypothyroidism [E03.9] 02/20/2012 Hyperlipidemia [E78.5] 02/20/2012 Class: Chronic Type II or unspecified type diabetes mellitus w*02/20/2012 11/06/2018 Coronary artery disease [I25.10] 05/27/2012 S/P coronary artery stent placement [Z95.5] 10/22/2012 Chest pain [R07.9] 04/26/2016 SUMMARY 04/27/2016 07/28/2021 Hypertensive urgency [I16.0] 04/27/2016 07/28/2021 Left arm pain [M79.602] 04/27/2016 Tobacco abuse counseling [Z71.6] 02/04/2019 07/28/2021 Bronchitis [J40] 02/04/2019 07/28/2021 Stage 3a chronic kidney disease (HCC) [N18.31] 07/28/2021 Hypertensive kidney disease with stage 3a chron*07/28/2021 Benzodiazepine dependence (HCC) [F13.20] 01/02/2024 Encounter Status:Closed by ROLA GASTELUM on 07/03/24 [facility] 06-25-2024 Telephone encounter Note The patient has been identified by name and date of : Yes Caregiver verified no other encounters exist for this prescription request: Yes Caregiver confirmed with patient/requestor that no other refills are due, in the near future, with this provider at this time: Yes The last office visit in the department: 03/24/2024 Does the patient have a future office visit with this provider/department: No Visit date not found Requested Prescriptions Pending Prescriptions Disp Refills carvedilol (COREG) 25 mg tablet 180 tablet 1 Sig: Take 1 tablet by mouth two times a day. Shital Encarnacion RN June 25, 2024 3:55 PM [facility] 06-25-2024 Miscellaneous Notes The patient has been identified by name and date of : Yes Caregiver verified no other encounters exist for this prescription request: Yes Caregiver confirmed with patient/requestor that no other refills are due, in the near future, with this provider at this time: Yes The last office visit in the department: 03/24/2024 Does the patient have a future office visit with this provider/department: No Visit date not found Requested Prescriptions Pending Prescriptions Disp Refills carvedilol (COREG) 25 mg tablet 180 tablet 1 Sig: Take 1 tablet by mouth two times a day. Shital Encarnacion RN June 25, 2024 3:55 PM documented in this encounter [facility] 04-14-2024 Telephone encounter Note I would request that this information be relayed to her surgeon. Regards, Jessica Clark MD [facility] 04-14-2024 Miscellaneous Notes I would request that this information be relayed to her surgeon. RegardsJessica MD Andree KELLY PT- phoned with update on patient. Reports patient had stents removed from kidneys on Mar 05, 2024. Reports patient reports off and on she is having pain in RLQ to back, about a 1/10. No pain or burning with urination, no blood in urine. Bowels are moving fine, and VS are good. Skye is going to call patient's surgeon with update also. Pt has f/u appt with surgeon on 05-01-24. documented in this encounter [facility] 04-14-2024 Telephone encounter Note Andree KELLY PT- phoned with update on patient. Reports patient had stents removed from kidneys on Mar 05, 2024. Reports patient reports off and on she is having pain in RLQ to back, about a 1/10. No pain or burning with urination, no blood in urine. Bowels are moving fine, and VS are good. Skye is going to call patient's surgeon with update also. Pt has f/u appt with surgeon on 05-01-24. [facility] 04-08-2024 Note HNO ID: [id number] Author: OSKAR ERICKSON MA Service: ? Author Type: Manager Payment Type: Progress Notes Filed: 04/08/2024 09:48 Note Text: POPULATION HEALTH NAVIGATION OUTREACH Action/FYI Patient states Dr. Clark is PCP. Updated PCP field. Declines follow up for BP. Reason for Outreach Returned Call/MyChart Patient Contacted: Spoke to patient/parent/or legal guardian Patient identified by name and date of : Yes Returned call/MyChart actions taken: Patient declined: Doesn't feel it's necessary PCP field updated Navigation Signature: Oskar Erickson MA April 08, 2024 9:41 AM [facility] 04-08-2024 History of Present illness Narrative POPULATION HEALTH NAVIGATION OUTREACH Action/FYI Patient states Dr. Clark is PCP. Updated PCP field. Declines follow up for BP. Reason for Outreach Returned Call/MyChart Patient Contacted: Spoke to patient/parent/or legal guardian Patient identified by name and date of : Yes Returned call/MyChart actions taken: Patient declined: Doesn't feel it's necessary PCP field updated Navigation Signature: Oskar Erickson MA April 08, 2024 9:41 AM POPULATION HEALTH NAVIGATION OUTREACH Action/FYI Left message for patient to call back. No PCP? Valentín Reason for Outreach Care Gap/HCC or Scheduling Wellness Visits Care Gaps due: Follow-up Appointment Controlling Blood Pressure Patient Contacted: Unable or unnecessary to reach patient: Left message Navigation Signature: Oskra Erickson MA April 08, 2024 9:36 AM documented in this encounter [facility] 04-08-2024 Note HNO ID: [id number] Author: OSKAR ERICKSON MA Service: ? Author Type: Manager Payment Type: Progress Notes Filed: 04/08/2024 09:39 Note Text: POPULATION HEALTH NAVIGATION OUTREACH Action/FYI Left message for patient to call back. No PCP? Valentín Reason for Outreach Care Gap/HCC or Scheduling Wellness Visits Care Gaps due: Follow-up Appointment Controlling Blood Pressure Patient Contacted: Unable or unnecessary to reach patient: Left message Navigation Signature: Oskar Erickson MA April 08, 2024 9:36 AM [facility] 04-08-2024 Note Patient Outreach (NE [facility]NA[facility]) ---- GAYLE CHO ([id number]) 1950 F Date Time Provider Department 04/08/24 OSKAR ERICKSONBasil During your visit today, we recorded the following information about you: GeorginaOskar MERI 04/08/2024 9:39 AM Signed POPULATION HEALTH NAVIGATION OUTREACH Action/I Left message for patient to call back. No PCP? Valentín Reason for Outreach Care Gap/HCC or Scheduling Wellness Visits Care Gaps due: Follow-up Appointment Controlling Blood Pressure Patient Contacted: Unable or unnecessary to reach patient: Left message Navigation Signature: Oskar GeorginaMERI April 08, 2024 9:36 AM GeorginaOskarMERI 04/08/2024 9:48 AM Addendum POPULATION HEALTH NAVIGATION OUTREACH Action/ Patient states Dr. Clark is PCP. Updated PCP field. Declines follow up for BP. Reason for Outreach Returned Call/MyChart Patient Contacted: Spoke to patient/parent/or legal guardian Patient identified by name and date of : Yes Returned call/MyChart actions taken: Patient declined: Doesn't feel it's necessary PCP field updated Navigation Signature: Oskar MERI Erickson April 08, 2024 9:41 AM Allergies As of Date: 04/08/2024 Noted Allergy Reaction IV CONTRAST (IODINE) 01/27/2020 7 - Swelling 12 - Shortness of Breath Comments: Swelling in lips ANESTHETICS - AMIDE TYPE - SELECT*07/12/2019 1 - Mental Status Change ANTIHISTIMINE 01/10/2017 5 - Intolerance Comments: Heart racing/palpitations ENALAPRIL 08/09/2007 14 - Other: See Comments Comments: Muscle myalgias ERYTHROMYCIN 10/08/2018 11 - Vomiting LOPRESSOR (METOPROLOL TARTRATE) 08/09/2007 14 - Other: See Comments Comments: Muscle myalgias PENICILLINS 08/09/2007 2 - Rash SYNTHROID (LEVOTHYROXINE SODIUM) 08/09/2007 14 - Other: See Comments Comments: Fatigue and jittery Date Reviewed: 03/24/2024 Reviewed by: Roberta Lujan MA - Fully Assessed Reason for Visit: Population Health Navigation Outreach [3910] Cmt: FRIDA STACIADaily Surge list 2023 Prescriptions as of 04/08/2024 - amLODIPine (NORVASC) 5 mg tablet Take 5 mg by mouth once daily. - Magnesium Oxide 250 mg magnesium tab Take 250 mg by mouth once daily. - Lactobacillus acidophilus (ACIDOPHILUS) cap Take 1 capsule by mouth once daily. 1 billion, - amLODIPine (NORVASC) 5 mg tablet Take 1 tablet by mouth once daily. - nitroglycerin sublingual (NITROQUICK) 0.4 mg SL tablet Dissolve 1 tablet under the tongue as needed. FOR CHEST PAIN. IF NO RELIEF CALL 911 - levothyroxine (LEVOXYL) 100 mcg tablet Take 1 tablet by mouth once daily. Take on empty stomach. For Thyroid. - ergocalciferol 50,000 unit capsule (VITAMIN D2, DRISDOL) Take 1 tablet by mouth twice weekly [id number], then decrease to 1 tablet weekly. - carvedilol (COREG) 25 mg tablet Take 1 tablet by mouth two times a day. - CPAP - aspirin, enteric coated (ASPIRIN, ENTERIC COATED) 81 mg EC tablet Take 1 tablet by mouth once daily. Problem List As Of Date 04/08/2024 Noted Resolved PAIN ABDOMEN( Right Lower Quadrant) [R10.31] 08/10/2007 History of non-ST elevation myocardial infarcti*02/20/2012 Class: Acute Uncontrolled hypertension [I10] 02/20/2012 Hypothyroidism [E03.9] 02/20/2012 Hyperlipidemia [E78.5] 02/20/2012 Class: Chronic Type II or unspecified type diabetes mellitus w*02/20/2012 11/06/2018 Coronary artery disease [I25.10] 05/27/2012 S/P coronary artery stent placement [Z95.5] 10/22/2012 Chest pain [R07.9] 04/26/2016 SUMMARY 04/27/2016 07/28/2021 Hypertensive urgency [I16.0] 04/27/2016 07/28/2021 Left arm pain [M79.602] 04/27/2016 Tobacco abuse counseling [Z71.6] 02/04/2019 07/28/2021 Bronchitis [J40] 02/04/2019 07/28/2021 Stage 3a chronic kidney disease (HCC) [N18.31] 07/28/2021 Hypertensive kidney disease with stage 3a chron*07/28/2021 Benzodiazepine dependence (HCC) [F13.20] 01/02/2024 Encounter Status:Closed by OSKAR ERICKSON on 04/08/24 [facility] 04-03-2024 Telephone encounter Note Called patient and updated, No urinary symptom at this time. Nicholas Zuleta LPN April 03, 2024 10:33 AM [facility] 04-03-2024 Miscellaneous Notes Called patient and updated, No urinary symptom at this time. Nicholas Zuleta LPN April 03, 2024 10:33 AM No , if she is taking 50,000 then she does not need to take 2000 international unit(s) Regards, Jessica Clark MD Patient notified and verbalized understanding. Patient does note that she takes 50,000 international unit(s) of Vitamin D2 once a week. Do you still want her to take an additional 2,000 international unit(s) daily? Roberta Lujan MA Please let patient know that her lipids are a little elevated but not very concerning. Vit d levels are mildly low Please take OT vit d3 2000 IU daily with food. Ferritin and iron levels are normal. Her urine test results did not show infection on culture, does she have any symptoms? Dysuria ? Jessica Navarro MD documented in this encounter [facility] 04-02-2024 Telephone encounter Note No , if she is taking 50,000 then she does not need to take 2000 international unit(s) Jessica Navarro MD [facility] 04-02-2024 Telephone encounter Note Patient notified and verbalized understanding. Patient does note that she takes 50,000 international unit(s) of Vitamin D2 once a week. Do you still want her to take an additional 2,000 international unit(s) daily? Roberta Lujan MA [facility] 04-02-2024 Telephone encounter Note Please let patient know that her lipids are a little elevated but not very concerning. Vit d levels are mildly low Please take OT vit d3 2000 IU daily with food. Ferritin and iron levels are normal. Her urine test results did not show infection on culture, does she have any symptoms? Dysuria ? Jessica Navarro MD [facility] 03-26-2024 Telephone encounter Note Jose @ [employer] notified. [facility] 03-26-2024 Miscellaneous Notes Jose @ [employer] notified. Willing to sign the HH Orders Jessica Navarro MD Pt had appt 03/[address] Clark. In light of appt yesterday, Jose with [facility] calls to ask if Dr. Clark would be willing now to sign HH orders for pt or if Angélica Morataya would be willing. Call Jose at number given. Nati Paulson LPN documented in this encounter [facility] 03-26-2024 Telephone encounter Note Patient notified. [facility] 03-26-2024 Miscellaneous Notes Patient notified. Ordered as requested. RegardsJessica MD Patient asking pcp to order UACNS, for her to complete tomorrow when she does her blood work. Reports she was in ICU with sepsis/UTI caused by e-coli, and would like to know if it's cleared up b/c she has so much fatigue. Reports she is not having UTI s/s, but her kidneys were packed with kidney stones, and they had to laser them, when she was in the hospital. Pended labs. Pt asking office to let her know urine test was added. documented in this encounter [facility] 03-25-2024 Telephone encounter Note Willing to sign the HH Orders Jessica Navarro MD [facility] 03-25-2024 Telephone encounter Note Ordered as requested. Jessica Navarro MD [facility] 03-25-2024 Telephone encounter Note Pt had appt 03/[address] Clark. In light of appt yesterday, Jose with [facility] calls to ask if Dr. Clark would be willing now to sign HH orders for pt or if Angélica Morataya would be willing. Call Jose at number given. Nati Paulson LPN [facility] 03-25-2024 Note HNO ID: [id number] Author: DELMAR GALLEGOS RN Service: ? Author Type: Registered Nurse Type: Progress Notes Filed: 03/25/2024 12:33 Note Text: Transitional Care Management (TCM) Follow-Up Note PCP Update / Actionable Items Future Appts 07/07/24 Card ADMIN [facility] N/A - No specialty updates needed Patient Source: [id number] ([facility]) Discharge Outreach Summary: Patient states is feeling little better, tired and drain, PT coming later Pain 07/28 ache hips and back Denies sob, cough ,wheezing, fever/chills, n/v Appetite good eating and hydrating Voiding urine sometimes a little pink, usually pretty clear , denies pain or burning with urinating and bm without difficulty, BM 03/25/24 Ambulating up ad shade Denies questions, concerns regarding medications, self care , no issues, stable Patient discharged from [facility]- Discharge date: 03/14/24 Admitted for: PYELONEPRHRITIS AND SEPSIS, UTI, EDITH, Fatigue, generalized weakness, Readmission Risk: n/a Value-Based Contract: ACO Contact: Contact made with patient: Yes Spoke to: Patient Validation: Validated the person spoken to is actively involved in the patient's care. The patient was identified by Name and Date of . I'd like to get an update on how you're doing since our last phone call. Is now a good time to talk? Yes Symptoms: Are you feeling about the same, better or worse since leaving the hospital? Better Weekly Outreach: 1st Outreach Medications: Do you have any questions about taking your medications, including which medications you should be on, or do you need refills on your medications? No Patient Questions / Concerns: Do you have any questions related to your discharge? No Appointment / TCM Follow-Up: Have you had a follow-up visit with your Primary Care Provider or Specialist since you were discharged? Yes Do you need any assistance with scheduling or changing your follow-up appointments? Patient already has an appointment scheduled Education N/A Targets addressed / completed during outreach: Prevent readmission for 30 days Outreach Outcome: Continue TCM Outreach for remainder of 30 days Care Management partners utilized: N/A Delmar Gallegos RN March 25, 2024 12:30 PM [facility] 03-25-2024 History of Present illness Narrative Transitional Care Management (TCM) Follow-Up Note PCP Update / Actionable Items Future Appts 07/07/24 Card ADMIN [facility] N/A - No specialty updates needed Patient Source: [facility] ([facility]ON) Discharge Outreach Summary: Patient states is feeling little better, tired and drain, PT coming later Pain 3/10 ache hips and back Denies sob, cough ,wheezing, fever/chills, n/v Appetite good eating and hydrating Voiding urine sometimes a little pink, usually pretty clear , denies pain or burning with urinating and bm without difficulty, BM 03/25/24 Ambulating up ad shade Denies questions, concerns regarding medications, self care , no issues, stable Patient discharged from [facility]- Discharge date: 03/14/24 Admitted for: PYELONEPRHRITIS & SEPSIS, UTI, EDITH, Fatigue, generalized weakness, Readmission Risk: n/a Value-Based Contract: ACO Contact: Contact made with patient: Yes Spoke to: Patient Validation: Validated the person spoken to is actively involved in the patient's care. The patient was identified by Name and Date of . I'd like to get an update on how you're doing since our last phone call. Is now a good time to talk? Yes Symptoms: Are you feeling about the same, better or worse since leaving the hospital? Better Weekly Outreach: 1st Outreach Medications: Do you have any questions about taking your medications, including which medications you should be on, or do you need refills on your medications? No Patient Questions / Concerns: Do you have any questions related to your discharge? No Appointment / TCM Follow-Up: Have you had a follow-up visit with your Primary Care Provider or Specialist since you were discharged? Yes Do you need any assistance with scheduling or changing your follow-up appointments? Patient already has an appointment scheduled Education N/A Targets addressed / completed during outreach: Prevent readmission for 30 days Outreach Outcome: Continue TCM Outreach for remainder of 30 days Care Management partners utilized: N/A Delmar Gallegos RN March 25, 2024 12:30 PM documented in this encounter [facility] 03-25-2024 Telephone encounter Note Patient asking pcp to order UACNS, for her to complete tomorrow when she does her blood work. Reports she was in ICU with sepsis/UTI caused by e-coli, and would like to know if it's cleared up b/c she has so much fatigue. Reports she is not having UTI s/s, but her kidneys were packed with kidney stones, and they had to laser them, when she was in the hospital. Pended labs. Pt asking office to let her know urine test was added. [facility] 03-25-2024 Note Patient Outreach ([facility]) ---- GAYLE CHO ([id number]) 1950 F Date Time Provider Department 03/25/24 DELMAR GALLEGOS [facility] During your visit today, we recorded the following information about you: Delmar Gallegos RN 03/25/2024 12:33 PM Signed Transitional Care Management (TCM) Follow-Up Note PCP Update / Actionable Items Future Appts 07/07/24 Card ADMIN [facility] N/A - No specialty updates needed Patient Source: Ioh-rw-Lvbswgk (OON) Discharge Outreach Summary: Patient states is feeling little better, tired and drain, PT coming later Pain 3/10 ache hips and back Denies sob, cough ,wheezing, fever/chills, n/v Appetite good eating and hydrating Voiding urine sometimes a little pink, usually pretty clear , denies pain or burning with urinating and bm without difficulty, BM 03/25/24 Ambulating up ad shade Denies questions, concerns regarding medications, self care , no issues, stable Patient discharged from [facility]- Discharge date: 03/14/24 Admitted for: PYELONEPRHRITIS AND SEPSIS, UTI, EDITH, Fatigue, generalized weakness, Readmission Risk: n/a Value-Based Contract: ACO Contact: Contact made with patient: Yes Spoke to: Patient Validation: Validated the person spoken to is actively involved in the patient's care. The patient was identified by Name and Date of . I'd like to get an update on how you're doing since our last phone call. Is now a good time to talk? Yes Symptoms: Are you feeling about the same, better or worse since leaving the hospital? Better Weekly Outreach: 1st Outreach Medications: Do you have any questions about taking your medications, including which medications you should be on, or do you need refills on your medications? No Patient Questions / Concerns: Do you have any questions related to your discharge? No Appointment / TCM Follow-Up: Have you had a follow-up visit with your Primary Care Provider or Specialist since you were discharged? Yes Do you need any assistance with scheduling or changing your follow-up appointments? Patient already has an appointment scheduled Education N/A Targets addressed / completed during outreach: Prevent readmission for 30 days Outreach Outcome: Continue TCM Outreach for remainder of 30 days Care Management partners utilized: N/A Delmar Gallegos RN March 25, 2024 12:30 PM Allergies As of Date: 03/25/2024 Noted Allergy Reaction IV CONTRAST (IODINE) 01/27/2020 7 - Swelling 12 - Shortness of Breath Comments: Swelling in lips ANESTHETICS - AMIDE TYPE - SELECT*07/12/2019 1 - Mental Status Change ANTIHISTIMINE 01/10/2017 5 - Intolerance Comments: Heart racing/palpitations ENALAPRIL 08/09/2007 14 - Other: See Comments Comments: Muscle myalgias ERYTHROMYCIN 10/08/2018 11 - Vomiting LOPRESSOR (METOPROLOL TARTRATE) 08/09/2007 14 - Other: See Comments Comments: Muscle myalgias PENICILLINS 08/09/2007 2 - Rash SYNTHROID (LEVOTHYROXINE SODIUM) 08/09/2007 14 - Other: See Comments Comments: Fatigue and jittery Date Reviewed: 03/24/2024 Reviewed by: Roberta Lujan MA - Fully Assessed Reason for Visit: Transition Of Care [4074] Cmt: [facility]- Follow-up Day 11 Prescriptions as of 03/25/2024 - amLODIPine (NORVASC) 5 mg tablet Take 5 mg by mouth once daily. - Magnesium Oxide 250 mg magnesium tab Take 250 mg by mouth once daily. - Lactobacillus acidophilus (ACIDOPHILUS) cap Take 1 capsule by mouth once daily. 1 billion, - amLODIPine (NORVASC) 5 mg tablet Take 1 tablet by mouth once daily. - nitroglycerin sublingual (NITROQUICK) 0.4 mg SL tablet Dissolve 1 tablet under the tongue as needed. FOR CHEST PAIN. IF NO RELIEF CALL 911 - levothyroxine (LEVOXYL) 100 mcg tablet Take 1 tablet by mouth once daily. Take on empty stomach. For Thyroid. - ergocalciferol 50,000 unit capsule (VITAMIN D2, DRISDOL) Take 1 tablet by mouth twice weekly [id number], then decrease to 1 tablet weekly. - carvedilol (COREG) 25 mg tablet Take 1 tablet by mouth two times a day. - CPAP - aspirin, enteric coated (ASPIRIN, ENTERIC COATED) 81 mg EC tablet Take 1 tablet by mouth once daily. Problem List As Of Date 03/25/2024 Noted Resolved PAIN ABDOMEN( Right Lower Quadrant) [R10.31] 08/10/2007 History of non-ST elevation myocardial infarcti*02/20/2012 Class: Acute Uncontrolled hypertension [I10] 02/20/2012 Hypothyroidism [E03.9] 02/20/2012 Hyperlipidemia [E78.5] 02/20/2012 Class: Chronic Type II or unspecified type diabetes mellitus w*02/20/2012 11/06/2018 Coronary artery disease [I25.10] 05/27/2012 S/P coronary artery stent placement [Z95.5] 10/22/2012 Chest pain [R07.9] 04/26/2016 SUMMARY 04/27/2016 07/28/2021 Hypertensive urgency [I16.0] 04/27/2016 07/28/2021 Left arm pain [M79.602] 04/27/2016 Tobacco abuse counseling [Z71.6] 02/05/20 (more content not included)... [facility] 03-24-2024 Note HNO ID: [id number] Author: JESSICA CLARK MD Service: ? Author Type: Physician Type: Progress Notes Filed: 03/24/2024 16:45 Note Text: Reason for Visit Patient presents with: Hospital Follow Up Gayle Cho is a 74 year old female who presents here today for Above Complaints.. Health Maintenance Pneumococcal Vaccine: 65+(1 of 2 - PCV) Depression Screening Anxiety Screening Hepatitis C Screening BP Controlled (<130/80) DTaP,Tdap,Td Vaccine(1 - Tdap) Lung Cancer Screening Shingrix Vaccine(1 of 2) Bone Density Screening RSV Vaccine(1 - 1-dose 75+ series) Advance Directive Discussion Influenza Vaccine(1) Covid-19 Vaccine( season) HPI She had fallen at home, taken to the ER by daughter. She had been feeling weak, was using a walker and just fell. Daughter knows she just fell. She figured out a way to just get up and text her daughter, she came and took her, found to have sepsis. She was in the ICU< was found to have urosepsis. She was in there for a day and then to the floors, she was IV abx, was sent home levaquin. Prior tot that she had a stone removal and after that she was using a walker at home. They thought some of the particles from the crushed up stones caused the issue. She is grieving for her . Has a support group at religion and family that is helping. She does not use the cpap machine. She is smoking only a half pack a day. No problem-specific Assessment AND Plan notes found for this encounter. PAST MEDICAL HISTORY Diagnosis Date Bowel disease Calculus of kidney Dyslipidemia Fracture Generalized osteoarthrosis, unspecified site Hypertension Hypothyroidism 02/20/2012 Mitral valve disorders(424.0) Myalgia and myositis, unspecified Non-ST elevation myocardial infarction (NSTEMI), subendocardial infarction, initial episode of care (HCC) 02/20/2012 Type II or unspecified type diabetes mellitus without mention of complication, not stated as uncontrolled Unspecified hypothyroidism PAST SURGICAL HISTORY Procedure Laterality Date DILATION AND CURETTAGE DXAND/THER NONOBSTETRIC Dilation AND curettage PRQ CARD STENT/ATH/ANGIO 2012 x 2 TONSILLECTOMY PRIMARY/SECONDARY Tonsillectomy No family history on file. Social History Tobacco Use Smoking status: Every Day Current packs/day: 1.00 Average packs/day: 1 pack/day for 45.0 years (45.0 ttl pk-yrs) Types: Cigarettes Smokeless tobacco: Never Substance Use Topics Alcohol use: No Drug use: No Past medical history, appointments, medications, allergies reviewed. Pertinent Lab/Diagnostic Studies are reviewed and discussed today Current Outpatient Medications: amLODIPine (NORVASC) 5 mg tablet Magnesium Oxide 250 mg magnesium tab Lactobacillus acidophilus (ACIDOPHILUS) cap levothyroxine (LEVOXYL) 100 mcg tablet ergocalciferol 50,000 unit capsule (VITAMIN D2, DRISDOL) carvedilol (COREG) 25 mg tablet CPAP aspirin, enteric coated (ASPIRIN, ENTERIC COATED) 81 mg EC tablet amLODIPine (NORVASC) 5 mg tablet nitroglycerin sublingual (NITROQUICK) 0.4 mg SL tablet losartan (COZAAR) 100 mg tablet Review of Systems CONSTITUTIONAL: No fevers, chills night sweats, unintended weight loss CARDIOVASCULAR: No chest pain, dyspnea, palpitations, orthopnea, PND, ankle edema. PULM: No dyspnea, unexplained cough. GI: No dysphagia/odynophagia, problematic reflux, constipation, diarrhea, changes in stool habits, hematochezia, melena. : No new urinary complaints, including dysuria, gross hematuria or pyuria. NEURO: No new balance problems, peripheral weakness/paresthesias or numbness of concern. Physical Exam BP 180/84 Pulse 73 Resp 16 Wt 67.6 kg (149 lb) BMI 25.58 kg/m? General appearance: Well appearing, alert, in no acute distress, well nourished. Skin: Skin color, texture, turgor normal, no suspicious rashes or lesions Head: Normocephalic, no masses, lesions, tenderness or abnormalities Eyes: Anicteric sclera. Pupils are equally round and reactive to light. Extraocular movements are intact. Lungs: Lungs clear to auscultation. No wheezing, rhonchi, rales Heart: RRR without murmur, gallop, or rubs. Extremities: No deformities, edema, skin discoloration, clubbing or cyanosis. Good capillary refill. ASSESSMENT/PLAN: 1. Uncontrolled hypertension - ICD9: 401.9, ICD10: I10 (primary diagnosis) - Controlled - Recommend home blood pressure monitoring, to bring results to next visit - Encouraged sodium restriction, DASH or Mediterranean diet - Recommend regular aerobic exercise - AMLODIPINE 5 MG TABLET - NITROGLYCERIN 0.4 MG SUBLINGUAL TABLET 2. Vitamin D deficiency - ICD9: 268.9, ICD10: E55.9 - VITAMIN D 25 HYDROXY 3. Iron deficiency - ICD9: 280.9, ICD10: E61.1 - IRON AND TIBC - FERRITIN 4. Stage 3a chronic kidney disease (HCC) - ICD9: 585.3, ICD10: N18.31 - eGFR: 42 Stable - Counseled on avoiding NSAIDs, adequate hydration 5. (more content not included)... [facility] 03-24-2024 History of Present illness Narrative Reason for Visit Patient presents with: Hospital Follow Up Gayle Cho is a 74 year old female who presents here today for Above Complaints.. Health Maintenance Pneumococcal Vaccine: 65+(1 of 2 - PCV) Depression Screening Anxiety Screening Hepatitis C Screening BP Controlled (<130/80) DTaP,Tdap,Td Vaccine(1 - Tdap) Lung Cancer Screening Shingrix Vaccine(1 of 2) Bone Density Screening RSV Vaccine(1 - 1-dose 75+ series) Advance Directive Discussion Influenza Vaccine(1) Covid-19 Vaccine( season) HPI She had fallen at home, taken to the ER by daughter. She had been feeling weak, was using a walker and just fell. Daughter knows she just fell. She figured out a way to just get up and text her daughter, she came and took her, found to have sepsis. She was in the ICU< was found to have urosepsis. She was in there for a day and then to the floors, she was IV abx, was sent home levaquin. Prior tot that she had a stone removal and after that she was using a walker at home. They thought some of the particles from the crushed up stones caused the issue. She is grieving for her . Has a support group at religion and family that is helping. She does not use the cpap machine. She is smoking only a half pack a day. No problem-specific Assessment & Plan notes found for this encounter. PAST MEDICAL HISTORY Diagnosis Date Bowel disease Calculus of kidney Dyslipidemia Fracture Generalized osteoarthrosis, unspecified site Hypertension Hypothyroidism 02/20/2012 Mitral valve disorders(424.0) Myalgia and myositis, unspecified Non-ST elevation myocardial infarction (NSTEMI), subendocardial infarction, initial episode of care ([facility]) 02/20/2012 Type II or unspecified type diabetes mellitus without mention of complication, not stated as uncontrolled Unspecified hypothyroidism PAST SURGICAL HISTORY Procedure Laterality Date DILATION & CURETTAGE DX&/THER NONOBSTETRIC Dilation & curettage PRQ CARD STENT/ATH/ANGIO 2011 x 2 TONSILLECTOMY PRIMARY/SECONDARY <AGE 10 Tonsillectomy No family history on file. Social History Tobacco Use Smoking status: Every Day Current packs/day: 1.00 Average packs/day: 1 pack/day for 45.0 years (45.0 ttl pk-yrs) Types: Cigarettes Smokeless tobacco: Never Substance Use Topics Alcohol use: No Drug use: No Past medical history, appointments, medications, allergies reviewed. Pertinent Lab/Diagnostic Studies are reviewed and discussed today Current Outpatient Medications: amLODIPine (NORVASC) 5 mg tablet Magnesium Oxide 250 mg magnesium tab Lactobacillus acidophilus (ACIDOPHILUS) cap levothyroxine (LEVOXYL) 100 mcg tablet ergocalciferol 50,000 unit capsule (VITAMIN D2, DRISDOL) carvedilol (COREG) 25 mg tablet CPAP aspirin, enteric coated (ASPIRIN, ENTERIC COATED) 81 mg EC tablet amLODIPine (NORVASC) 5 mg tablet nitroglycerin sublingual (NITROQUICK) 0.4 mg SL tablet losartan (COZAAR) 100 mg tablet Review of Systems CONSTITUTIONAL: No fevers, chills night sweats, unintended weight loss CARDIOVASCULAR: No chest pain, dyspnea, palpitations, orthopnea, PND, ankle edema. PULM: No dyspnea, unexplained cough. GI: No dysphagia/odynophagia, problematic reflux, constipation, diarrhea, changes in stool habits, hematochezia, melena. : No new urinary complaints, including dysuria, gross hematuria or pyuria. NEURO: No new balance problems, peripheral weakness/paresthesias or numbness of concern. Physical Exam BP 180/84 Pulse 73 Resp 16 Wt 67.6 kg (149 lb) BMI 25.58 kg/m General appearance: Well appearing, alert, in no acute distress, well nourished. Skin: Skin color, texture, turgor normal, no suspicious rashes or lesions Head: Normocephalic, no masses, lesions, tenderness or abnormalities Eyes: Anicteric sclera. Pupils are equally round and reactive to light. Extraocular movements are intact. Lungs: Lungs clear to auscultation. No wheezing, rhonchi, rales Heart: RRR without murmur, gallop, or rubs. Extremities: No deformities, edema, skin discoloration, clubbing or cyanosis. Good capillary refill. ASSESSMENT/PLAN: 1. Uncontrolled hypertension - ICD9: 401.9, ICD10: I10 (primary diagnosis) - Controlled - Recommend home blood pressure monitoring, to bring results to next visit - Encouraged sodium restriction, DASH or Mediterranean diet - Recommend regular aerobic exercise - AMLODIPINE 5 MG TABLET - NITROGLYCERIN 0.4 MG SUBLINGUAL TABLET 2. Vitamin D deficiency - ICD9: 268.9, ICD10: E55.9 - VITAMIN D 25 HYDROXY 3. Iron deficiency - ICD9: 280.9, ICD10: E61.1 - IRON AND TIBC - FERRITIN 4. Stage 3a chronic kidney disease (HCC) - ICD9: 585.3, ICD10: N18.31 - eGFR: 42 Stable - Counseled on avoiding NSAIDs, adequate hydration 5. Hypothyroidism, unspecified type - ICD9: 244.9, ICD10: E03.9 - Instructed patient on importance of taking on an empty stomach either first thing in the morning or at bedtime. Jessica Clark MD documented in this encounter [facility] 03-19-2024 Telephone encounter Note Oneyda Adair Olea notified of provider message. Left VM message for patient to return call to [phone] and ask for triage nurse. Chelly Alamo RN [facility] 03-19-2024 Miscellaneous Notes Oneyda @ [facility] notified of provider message. Left VM message for patient to return call to [phone] and ask for triage nurse. Chelly Alamo, RN Pt on schedule for 03/24/24 for ER follow up. Pt has not been seen in 2.[address] De La Paz note below. Phone call to patient to inform, no answer. Will need to try again. Roberta Lujan MA Left vm for Will to return call to nurse for provider's message. I will not be able to sign the order, Patient was supposed to find a new primary care, please reference my note in July,. Where she accused me of things and we decided to end the doctor patient relationship. She has not seem me in 2.5 years. Apologies for the inconvenience Regards, Jessica Clark MD Will calling again. Would like verbal orders today since they are starting care on Sunday. Please advise. Will from [facility] calling patient discharging today from [facility], sepsis, UTI, weakness acute kidney injury. Plan start of care on 03/16, asking if PCP would follow patient and sign orders? Please advise documented in this encounter [facility] 03-18-2024 Telephone encounter Note [facility] Call, calling to report they will be starting nursing and PT with pt. Jose Mcgarry LPN [facility] 03-18-2024 Miscellaneous Notes [facility] Call, calling to report they will be starting nursing and PT with pt. Jose Mcgarry LPN documented in this encounter [facility] 03-18-2024 Telephone encounter Note Pt on schedule for 03/24/24 for ER follow up. Pt has not been seen in 2.[address] De La Paz note below. Phone call to patient to inform, no answer. Will need to try again. Roberta Lujan MA [facility] 03-18-2024 Note HNO ID: [id number] Author: DELMAR AGLLEGOS RN Service: ? Author Type: Registered Nurse Type: Progress Notes Filed: 03/18/2024 11:14 Note Text: Transition Care Management (TCM) Initial Outreach PCP Update / Actionable Items Eligible for tcm through 03/28/24 Future Appts 03/19 M[facility] 07/07/24 [facility] Referral Source of Stratification: [facility] Hospital Admission Status: Discharged Readmission Risk Score: n/a Patient's zip code: [address] Is zip code within program service area: No Patient meets program referral criteria: No Patient does not qualify for High Risk TCM Home Visit program due to: Patient's zip code is not located within program service area Disposition: Patient does not qualify for HRTIC, will provide TCM outreach follow-up for 30-days Patient Source: [id number] (OON) Discharge Outreach Summary: Patient states is feeling better, anxious in the evening and uptight for the last couple of days, not stressing about anything nothing out of the ordinary Denies pain,sob, cough ,wheezing, fever/chills, n/v Appetite good eating and hydrating Voiding urine a little pink, little blood has cleared up, denies pain or burning with urinating and bm without difficulty, BM 03/18 Ambulating up ad shade Fatigue,no energy or strength Denies questions, concerns regarding medications, self care , no issues, stable Patient discharged from [facility] Discharge date: 03/14/24 Admitted for: PYELONEPRHRITIS AND SEPSIS, UTI, EDITH, Fatigue, generalized weakness, Readmission Risk: n/a Value-Based Contract: ACO Contact: Contact made with patient: Yes Hi, my name is Delmar Gallegos RN and I am calling from the [facility] on behalf of your Primary Care Provider, Jessica Clark MD. I understand you were recently in the hospital, so I am calling to check in with you to ensure you are feeling well now that you are home. May I ask you a few questions related to your hospital stay and well-being? Yes Spoke to: Patient Validation: Validated the person spoken to is actively involved in the patient's care. The patient was identified by Name and Date of . Symptoms: Are you feeling about the same, better or worse since leaving the hospital? Better Medications: Do you have any questions about taking your medications, including which medications you should be on, or do you need refills on your medications? No Medication Review: Declined at this time per patient preference Discharge Instructions: Your Discharge Instructions / After Visit Summary (AVS) are important in guiding you through the recovery process. Do you have any questions related to your discharge instructions? No Home Care: Were you discharged with home care? No Equipment: Do you have all the necessary equipment and supplies needed at your home? Yes The patient verbalizes understanding the use of the equipment and supplies Social: We would like to make sure you have what you need so that your basics needs are met - including your personal safety, food, housing and medications. Would you like to speak with a social work team truck driver to help give you support for any of these needs? No It can be normal to feel anxious or down during a time like this. Would you like to talk to a mental health professional about how you have been feeling? No Action Taken: No needs verbalized. No action required. Follow-Up Appointment: [Appointment / TCM Follow-up within 14 days] I would like to help you schedule a hospital follow-up virtual or telephone visit with your PCP. This is a great way for you to connect with your provider to ensure you have safely transitioned home. If you are agreeable, I will send your request to a data virtualization consultant who will contact and assist you with that appointment. This will give you an opportunity to ask any questions or address any concerns you may have with your PCP. Inform the patient that if they have any questions or concerns prior to that appointment, to call their PCP's office right away. Appointment Action: No action required; patient already has appointment scheduled. Education N/A Targets addressed / completed during outreach: Contact patient within two (2) business days Outreach Outcome: Enrolled in TCM Care Management partners utilized: N/A Delmar Gallegos RN March 18, 2024 11:08 AM [facility] 03-18-2024 History of Present illness Narrative Transition Care Management (TCM) Initial Outreach PCP Update / Actionable Items Eligible for tcm through 03/28/24 Future Appts 03/19 Micki [facility] 07/07/24 Card ADMIN [facility] TCM Home Visit Referral Source of Stratification: [facility] Hospital Admission Status: Discharged Readmission Risk Score: n/a Patient's zip code: [address] Is zip code within program service area: No Patient meets program referral criteria: No Patient does not qualify for High Risk TCM Home Visit program due to: Patient's zip code is not located within program service area Disposition: Patient does not qualify for HRTIC, will provide TCM outreach follow-up for 30-days Patient Source: [id number] (OON) Discharge Outreach Summary: Patient states is feeling better, anxious in the evening and uptight for the last couple of days, not stressing about anything nothing out of the ordinary Denies pain,sob, cough ,wheezing, fever/chills, n/v Appetite good eating and hydrating Voiding urine a little pink, little blood has cleared up, denies pain or burning with urinating and bm without difficulty, BM 03/18 Ambulating up ad shade Fatigue,no energy or strength Denies questions, concerns regarding medications, self care , no issues, stable Patient discharged from [facility] Discharge date: 03/14/24 Admitted for: PYELONEPRHRITIS & SEPSIS, UTI, EDITH, Fatigue, generalized weakness, Readmission Risk: n/a Value-Based Contract: ACO Contact: Contact made with patient: Yes Hi, my name is Delmar Gallegos RN and I am calling from the [facility] on behalf of your Primary Care Provider, Jessica Clark MD. I understand you were recently in the hospital, so I am calling to check in with you to ensure you are feeling well now that you are home. May I ask you a few questions related to your hospital stay and well-being? Yes Spoke to: Patient Validation: Validated the person spoken to is actively involved in the patient's care. The patient was identified by Name and Date of . Symptoms: Are you feeling about the same, better or worse since leaving the hospital? Better Medications: Do you have any questions about taking your medications, including which medications you should be on, or do you need refills on your medications? No Medication Review: Declined at this time per patient preference Discharge Instructions: Your Discharge Instructions / After Visit Summary (AVS) are important in guiding you through the recovery process. Do you have any questions related to your discharge instructions? No Home Care: Were you discharged with home care? No Equipment: Do you have all the necessary equipment and supplies needed at your home? Yes The patient verbalizes understanding the use of the equipment and supplies Social: We would like to make sure you have what you need so that your basics needs are met - including your personal safety, food, housing and medications. Would you like to speak with a social work team truck driver to help give you support for any of these needs? No It can be normal to feel anxious or down during a time like this. Would you like to talk to a mental health professional about how you have been feeling? No Action Taken: No needs verbalized. No action required. Follow-Up Appointment: [Appointment / TCM Follow-up within 14 days] I would like to help you schedule a hospital follow-up virtual or telephone visit with your PCP. This is a great way for you to connect with your provider to ensure you have safely transitioned home. If you are agreeable, I will send your request to a data virtualization consultant who will contact and assist you with that appointment. This will give you an opportunity to ask any questions or address any concerns you may have with your PCP. Inform the patient that if they have any questions or concerns prior to that appointment, to call their PCP's office right away. Appointment Action: No action required; patient already has appointment scheduled. Education N/A Targets addressed / completed during outreach: Contact patient within two (2) business days Outreach Outcome: Enrolled in TCM Care Management partners utilized: N/A Delmar Gallegos RN March 18, 2024 11:08 AM documented in this encounter [facility] 03-18-2024 Telephone encounter Note Left vm for Will to return call to nurse for provider's message. [facility] 03-18-2024 Note Patient Outreach (AM [facility]) ---- GAYLE CHO ([id number]) 1950 F Date Time Provider Department 03/18/24 DELMAR GALLEGOS [facility] During your visit today, we recorded the following information about you: Delmar Gallegos RN 03/18/2024 11:14 AM Signed Transition Care Management (TCM) Initial Outreach PCP Update / Actionable Items Eligible for tcm through 03/28/24 Future Appts 03/19 Micki [facility] 07/07/24 Card ADMIN [facility] TCM Home Visit Referral Source of Stratification: [facility] Hospital Admission Status: Discharged Readmission Risk Score: n/a Patient's zip code: [address] Is zip code within program service area: No Patient meets program referral criteria: No Patient does not qualify for High Risk TCM Home Visit program due to: Patient's zip code is not located within program service area Disposition: Patient does not qualify for HRTIC, will provide TCM outreach follow-up for 30-days Patient Source: [id number] (OON) Discharge Outreach Summary: Patient states is feeling better, anxious in the evening and uptight for the last couple of days, not stressing about anything nothing out of the ordinary Denies pain,sob, cough ,wheezing, fever/chills, n/v Appetite good eating and hydrating Voiding urine a little pink, little blood has cleared up, denies pain or burning with urinating and bm without difficulty, BM 03/18 Ambulating up ad shade Fatigue,no energy or strength Denies questions, concerns regarding medications, self care , no issues, stable Patient discharged from [facility] Discharge date: 03/14/24 Admitted for: PYELONEPRHRITIS AND SEPSIS, UTI, EDITH, Fatigue, generalized weakness, Readmission Risk: n/a Value-Based Contract: ACO Contact: Contact made with patient: Yes Hi, my name is Delmar Gallegos RN and I am calling from the [facility] on behalf of your Primary Care Provider, Jessica Clark MD. I understand you were recently in the hospital, so I am calling to check in with you to ensure you are feeling well now that you are home. May I ask you a few questions related to your hospital stay and well-being? Yes Spoke to: Patient Validation: Validated the person spoken to is actively involved in the patient's care. The patient was identified by Name and Date of . Symptoms: Are you feeling about the same, better or worse since leaving the hospital? Better Medications: Do you have any questions about taking your medications, including which medications you should be on, or do you need refills on your medications? No Medication Review: Declined at this time per patient preference Discharge Instructions: Your Discharge Instructions / After Visit Summary (AVS) are important in guiding you through the recovery process. Do you have any questions related to your discharge instructions? No Home Care: Were you discharged with home care? No Equipment: Do you have all the necessary equipment and supplies needed at your home? Yes The patient verbalizes understanding the use of the equipment and supplies Social: We would like to make sure you have what you need so that your basics needs are met - including your personal safety, food, housing and medications. Would you like to speak with a social work team truck driver to help give you support for any of these needs? No It can be normal to feel anxious or down during a time like this. Would you like to talk to a mental health professional about how you have been feeling? No Action Taken: No needs verbalized. No action required. Follow-Up Appointment: [Appointment / TCM Follow-up within 14 days] I would like to help you schedule a hospital follow-up virtual or telephone visit with your PCP. This is a great way for you to connect with your provider to ensure you have safely transitioned home. If you are agreeable, I will send your request to a data virtualization consultant who will contact and assist you with that appointment. This will give you an opportunity to ask any questions or address any concerns you may have with your PCP. Inform the patient that if they have any questions or concerns prior to that appointment, to call their PCP's office right away. Appointment Action: No action required; patient already has appointment scheduled. Education N/A Targets addressed / completed during outreach: Contact patient within two (2) business days Outreach Outcome: Enrolled in TCM Care Management partners utilized: N/A Delmar Gallegos RN March 18, 2024 11:08 AM Allergies As of Date: 03/18/2024 Noted Allergy Reaction IV CONTRAST (IODINE) 01/27/2020 7 - Swelling 12 - Shortness of Breath Comments: Swelling in lips ANESTHETICS - AMIDE TYPE - SELECT*07/12/2019 1 - Mental Status Change ANTIHISTIMINE 01/10/2017 5 - Intolerance Comments: Heart racing/palpitations ENALAPRIL (more content not included)... [facility] 03-17-2024 Telephone encounter Note I will not be able to sign the HH order, Patient was supposed to find a new primary care, please reference my note in July,. Where she accused me of things and we decided to end the doctor patient relationship. She has not seem me in 2.5 years. Apologies for the inconvenience Regards, Jessica Clark MD [facility] Work Phone: 03-14-2024 Telephone encounter Note Will calling again. Would like verbal orders today since they are starting care on Sunday. Please advise. [facility] 03-14-2024 Note [facility] Medical Records Department [address] [place] [address] Discharge Summary 03/14/24 1042 MR#: [id number] Acct: [id number] Name: GAYLE CHO Rep #: [id number] : 1950 73 From: Brandan Logan DO PCP: Dr. Jessica Clark MD Status:ADM IN Location: [facility] [id number] Providers Date of Admission: 03/12/24 Primary Care Physician: Dr. Jessica Clark MD Consultations 03/12/24 03:17 Consult: Urology Routine Consulting Provider: Nirmal Zamora Reason for Consult: Pyelonephritis with Sepsis after recent ureteral stent for renal stone. EMERGENT Consult: No MD Notified: Yes Date Notified: 03/12/24 Time Notified: 03:17 Method of Notification: ED Physician Initiated Reason For Visit: PYELONEPRHRITIS SEPSIS Diagnosis Discharge Diagnosis (1) Acute UTI: Status: Acute Code(s): N39.0 - Urinary tract infection, site not specified (2) Right distal ureteral calculus: Status: Acute Code(s): N20.1 - Calculus of ureter (3) EDITH (acute kidney injury): Status: Acute Code(s): N17.9 - Acute kidney failure, unspecified Plan UTI * CT showed interval placement of right ureteral stent with mild right hydronephrosis. Calculus in the proximal ureter adjacent to the stent. Air in the renal collecting system and bladder likely related to recent procedure. Cannot exclude superimposed infection. Retroperitoneal adenopathy increased likely reactive. * UCx growing out garcia-sensitive E. coli. Will discharge with EOD dosing of levofloxacin. * qSOFA 0, therefore sepsis ruled out. * Seen by , plan to remove stent sometime next week. 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 Hold losartan given EDITH. Uncontrolled, will add amlodipine. * Hypothyroidism: Continue levothyroxine VTE prophylaxis: LMWH Medications at Discharge Home Medications levothyroxine 100 mcg tablet 100 mcg PO DAILY THYROID 12/28/20 carvedilol 25 mg tablet 25 mg PO BID bp 08/12/21 ondansetron 4 mg disintegrating tablet 4 mg PO Q8H PRN PRN Nausea #10 tabs 02/03/24 ergocalciferol (vitamin D2) 1,250 mcg (50,000 unit) capsule 1,250 mcg PO Q7D 02/13/24 aspirin 81 mg tablet,delayed release (Adult Low Dose Aspirin) 81 mg PO DAILY 02/26/24 amlodipine 5 mg tablet 5 mg PO DAILY #30 tabs 03/14/24 levofloxacin 500 mg tablet 500 mg PO .q48 #4 tabs 03/14/24 Hospital Course Operations None Procedures None Summary of Care Provided Minutes Spent on Discharge: 32 Hospital Course: Patient presents with fever and weakness. Patient was found to have urinary tract infection. She did have a CAT scan that showed calculus in the proximal ureter adjacent to the stent. Patient was seen by urology who initial plan was for have the stent removed but was deferring that outpatient given the underlying infection. Patient was started on antibiotics with ceftriaxone. Culture came back showing pansensitive E. coli. Patient has a known allergy to penicillin so patient will be discharged with every other day dosing of levofloxacin. Patient will follow-up with urology to have her ureteral stent removed Weight / BMI Weight Weight: 70.6 kg Body Mass Index (BMI) 30.4 ABG / Lab / Microbiology Data 03/13/24 06:15 03/14/24 04:47 Laboratory: Laboratory Results - last 24 hr 03/14/24 04:47: Sodium 135 L, Potassium 3.8, Chloride 107, Carbon Dioxide 22.0, Anion Gap 6, BUN 36 H, Creatinine 1.84 H, Estim Creat Clear Calc 23.16, Est GFR (MDRD) Af Amer 34 L, Est GFR (MDRD) Non- Af 28 L, BUN/Creatinine Ratio 19.6, Glucose 92, Calcium 8.8 Microbiology: Microbiology 03/12/24 00:47 Urine, Clean Catch Urine Culture - Final Escherichia coli 03/12/24 03:28 Blood Culture (Wb) - Anticubital Left Blood Culture - Preliminary No growth in 48 hours. 03/12/24 01:22 Mucosa - Nose SARS-CoV-2, Influenza RSV (PCR) - Final D/C Instructions Discharge Diet: No restrictions Meaningful Use Info Meaningful Use Meaningful Use Diagnoses (Choose all that apply): None applicable Ischemic Stroke Statin Dosing Therapy Reference: STATIN DOSE THERAPY REFERENCE: * Patients > 75 years receive moderate or high dose statin therapy. * Patients 75 years or YOUNGER should receive HIGH intensity statin dose unless contraindicated. You will be required to document reason for non-treatment if statin daily dose does not meet guidelines. HIGH DOSE STATIN THERAPY DAILY Atorvastatin > than or = to 40 mg Rosuvastatin > than or = to 20 mg Amlodipine + Atorvastatin > than or = to 2.5/40 mg Ezetimibe + Simvastatin 10/80 mg Simvastatin 80mg Discharge Plan Admission Admit Date/Time: 03/12/24 03:10 Primary Reason for Your Visit: Urinary tract infection Attending Provider: Brandan Logan Primary Care Provider (more content not included)... [facility] 03-14-2024 Telephone encounter Note Will from [facility] calling patient discharging today from [facility], sepsis, UTI, weakness acute kidney injury. Plan start of care on 03/16, asking if PCP would follow patient and sign orders? Please advise [facility] 03-05-2024 Note [facility] Medical Records Department [address] [place] [address] History Physical Exam 03/05/24 0804 MR#: [id number] Acct: [id number] Name: GAYLE CHO Rep #: [id number] : 1950 73 From: Nirmal Zamora MD PCP: Dr. Jessica Clark MD Status:[facility] Location: [place] [address] HPI - General General Date of Service: 03/05/24 Chief Complaint: Right kidney stone HPI Narrative GAYLE CHO, is a 73 F who presents for laser lithotripsy and treatment of a stone in the right kidney plan to laser the stone and placed a stent on the right side. PENDING SALE TO [facility] Medical History Fatigue Syncope Fibromyalgia History of IBS Heartburn Shortness of breath on exertion History of pain when walking History of edema Wears dentures Wears glasses Cancer Anxiety Thyroid disease Restless legs Smoker CPAP (continuous positive airway pressure) dependence History of stress test History of echocardiogram Cardiology follow-up encounter Atrial fibrillation Myocardial infarct HLD (hyperlipidemia) Kidney stones CKD (chronic kidney disease) stage 3, GFR 30-59 ml/min Hypothyroidism Essential hypertension Presence of stent in coronary artery ( 10/29/12) Atherosclerotic heart disease of [place] coronary artery without angina pectoris Osteoarthritis Heart murmur High cholesterol Arthritis Facet arthropathy, lumbar History of chest pain Home Medications ???Medication ???Instructions ???Recorded ???Last Taken ???Type levothyroxine 100 mcg tablet 100 mcg PO DAILY THYROID 12/28/20 08/26/21 History carvedilol 25 mg tablet 25 mg PO BID bp 08/12/21 08/26/21 History ondansetron 4 mg disintegrating 4 mg PO Q8H PRN PRN Nausea #10 tabs 02/03/24 Unknown Rx tablet cephalexin 500 mg capsule 500 mg PO Q6 #28 CAPSULES 02/13/24 Unknown Rx ergocalciferol (vitamin D2) 1,250 1,250 mcg PO Q7D 02/13/24 Unknown History mcg (50,000 unit) capsule losartan 100 mg tablet 50 mg PO BID 02/13/24 Unknown History aspirin 81 mg tablet,delayed 81 mg PO DAILY 02/26/24 02/26/24 History release (Adult Low Dose Aspirin) Allergy/AdvReac Type Severity Reaction Status Date / Time Penicillins Allergy Severe Rash Verified 03/05/24 06:35 Anesthetics - Amide Type - Allergy Swelling Verified 03/05/24 06:35 Select A Anesthetics - Nubia Type- Allergy Swelling Verified 03/05/24 06:35 Parabens Iodinated Contrast Media Allergy Anaphylaxis Verified 03/05/24 06:35 Antihistamines - Alkylamine AdvReac Unknown heart Verified 03/05/24 06:35 racing enalapril AdvReac Unknown myalgias Verified 03/05/24 06:35 levothyroxine sodium (From AdvReac Unknown fatigue Verified 03/05/24 06:35 Synthroid) metoprolol (From Lopressor) AdvReac Unknown myalgias Verified 03/05/24 06:35 Family History Mother Heart disease Hypertension HLD (hyperlipidemia) Father Cancer Patient states spider cancer. Surgical History History of esophagogastroduodenoscopy (EGD) History of cardiac catheterization Hx of eye surgery History of cystoscopy History of tooth extraction History of D C History of tonsillectomy Presence of coronary angioplasty implant and graft ( 10/29/12) Social History household members: spouse Smoking Status: Heavy Smoker (>10/day) how long ago did patient quit smoking: Ongoing tobacco use since teenager, 05/22 ppd. alcohol intake: never substance use type: does not use caffeine: Yes Type: carbonated beverages, coffee and tea what type of physical activity do you participate in: none Vital Signs Vital Signs Vital Signs: 03/05/24 07:06 03/05/24 07:06 03/05/24 07:25 Temperature 97.8 F 97.8 F Temperature Source Temporal Pulse Rate 69 69 Respiratory Rate 17 17 Respiratory Pattern Normal Blood Pressure 160/81 H 160/81 H Blood Pressure Mean 107 Blood Pressure Source Monitor Blood Pressure Position Semi-Fowlers Blood Pressure Location Right Arm Pulse Ox 96 96 Oxygen Delivery Method Room Air Weight Weight: 68 kg Body Mass Index (BMI) 29.2 03/05/24 0804 Cosigner Signature (if applicable): CC: Dr. Jessica Clark MD; Dr. Nirmal Zamora MD Signed [facility] 02-15-2024 Telephone encounter Note Pt reports she has a few days left. The patient has been identified by name and date of : Yes Caregiver verified no other encounters exist for this prescription request: Yes Caregiver confirmed with patient/requestor that no other refills are due, in the near future, with this provider at this time: Yes The last office visit in the department: 01/02/2024 Does the patient have a future office visit with this provider/department: No Visit date not found Requested Prescriptions Pending Prescriptions Disp Refills levothyroxine (LEVOXYL) 100 mcg tablet 90 tablet 3 Sig: Take 1 tablet by mouth once daily. Take on empty stomach. For Thyroid. Fanny Vargas RN February 15, 2024 2:45 PM [facility] 02-15-2024 Miscellaneous Notes Pt reports she has a few days left. The patient has been identified by name and date of : Yes Caregiver verified no other encounters exist for this prescription request: Yes Caregiver confirmed with patient/requestor that no other refills are due, in the near future, with this provider at this time: Yes The last office visit in the department: 01/02/2024 Does the patient have a future office visit with this provider/department: No Visit date not found Requested Prescriptions Pending Prescriptions Disp Refills levothyroxine (LEVOXYL) 100 mcg tablet 90 tablet 3 Sig: Take 1 tablet by mouth once daily. Take on empty stomach. For Thyroid. Fanny Vargas RN February 15, 2024 2:45 PM documented in this encounter [facility] 02-08-2024 Telephone encounter Note Patient calling in and message below was reviewed. Patient verbalized understanding. Angela Nur RN [facility] 02-08-2024 Miscellaneous Notes Patient calling in and message below was reviewed. Patient verbalized understanding. Angela Nur RN Called and updated dated patient via VM, patient id self on message. Nicholas Zuleta LPN February 08, 2024 2:[address] Farrell will not be helpful with right flank and uti. Bowel changes yes but not the other. If pain is over a 10 as she says and is having difficulty getting around she needs to go back to ER. Thank you Angélica Morataya APRN.CNP Pt called in and reports she was in to see provider on 01/02/24 for R flank pain. She reports she was went to [facility] ER on 02/03/24 for the same issue and they did an x-ray and they didn't find any kidney stone but she had a UTI. Pt reports R flank pain and R lower abd pain 7-8/10 and over 10 when walking and it's a constant aching, but when she's walking it's a stabbing. Pt states she has been having issues with her bowels she had diarrhea one week, then she was constipated this past week, and she finally just started being able to have a BM. Pt denies taking anything for her bowels. Pt states she had requested a GI consult before. Pt would like to see Dr Malloy if provider is will to place consult. I offered to get Pt in for an appointment with provider and she said it's so hard to get around. Please call and advise. documented in this encounter [facility] 02-08-2024 Telephone encounter Note Called and updated dated patient via VM, patient id self on message. Nicholas Zuleta LPN February 08, 2024 2:54 PM [facility] 02-08-[address] Farrell will not be helpful with right flank and uti. Bowel changes yes but not the other. If pain is over a 10 as she says and is having difficulty getting around she needs to go back to ER. Thank you Angélica Morataya APRN.OUTPATIENT PHYSICAL THERAPIST [facility] 02-08-2024 Telephone encounter Note Pt called in and reports she was in to see provider on 01/02/24 for R flank pain. She reports she was went to [facility] ER on 02/03/24 for the same issue and they did an x-ray and they didn't find any kidney stone but she had a UTI. Pt reports R flank pain and R lower abd pain 7-8/10 and over 10 when walking and it's a constant aching, but when she's walking it's a stabbing. Pt states she has been having issues with her bowels she had diarrhea one week, then she was constipated this past week, and she finally just started being able to have a BM. Pt denies taking anything for her bowels. Pt states she had requested a GI consult before. Pt would like to see Dr Malloy if provider is will to place consult. I offered to get Pt in for an appointment with provider and she said it's so hard to get around. Please call and advise. [facility] 01-07-2024 Telephone encounter Note Patient returned missed call and was notified of provider's message and that call back phone number was available in the voicemail if needed. Patient voiced understanding. [facility] 01-07-2024 Miscellaneous Notes Patient returned missed call and was notified of provider's message and that call back phone number was available in the voicemail if needed. Patient voiced understanding. Called and left a detailed voicemail notifying patient of providers message. Clinic phone number was left in case patient had any questions. Fanny Vargas RN Urine negative for specific infection. If improving with treatment, continue and finish antibiotic. If no improvement, she needs seen again to repeat urine. Thank you Angélica Morataya APRN.CNP documented in this encounter [facility] 01-07-2024 Telephone encounter Note Called and left a detailed voicemail notifying patient of providers message. Clinic phone number was left in case patient had any questions. Fanny Vargas, RN [facility] 01-07-2024 Telephone encounter Note Urine negative for specific infection. If improving with treatment, continue and finish antibiotic. If no improvement, she needs seen again to repeat urine. Thank you Angélica Morataya APRN.CNP [facility] 01-03-2024 Miscellaneous Notes Patient notified? Still awaiting urine culture but want to go ahead and start treating infection as she has symptoms. I have ordered cephalexin as discussed yesterday. Kidney function still decreased but stable, HgbA1c is now in diabetic range at 6.7, Healthy diet, regular exercise, and weight loss will help improve this and your cholesterol levels. cholesterol levels, especially triglycerides, are high, we need to repeat this fasting to see what actually levels are vit d is low - I am sending in a prescription for supplement. One thyroid level was slightly off but other 2 normal. I would like to recheck this in 4 weeks Follow up in 4 weeks to further review and discuss this. Thank you Angélica Morataya APRN.CNP documented in this encounter [facility] 01-03-2024 Telephone encounter Note Patient notified? [place] [id number] Telephone encounter Note Still awaiting urine culture but want to go ahead and start treating infection as she has symptoms. I have ordered cephalexin as discussed yesterday. Kidney function still decreased but stable, HgbA1c is now in diabetic range at 6.7, Healthy diet, regular exercise, and weight loss will help improve this and your cholesterol levels. cholesterol levels, especially triglycerides, are high, we need to repeat this fasting to see what actually levels are vit d is low - I am sending in a prescription for supplement. One thyroid level was slightly off but other 2 normal. I would like to recheck this in 4 weeks Follow up in 4 weeks to further review and discuss this. Thank you Angélica Morataya APRN.OUTPATIENT PHYSICAL THERAPIST T [facility] 01-02-2024 History of Present illness Narrative CC: Patient presents with: Medicare Wellness Exam: Medicare Wellness HPI Gayle Cho is a 73 year old female who presents today for wellness but has not been seen in 1.5 years and needing refills. HTN and HLD: Ms. Cho indicates that she is feeling well and denies any symptoms referable to elevated blood pressure. Specifically denies severe/persistent headache, chest pain, palpitations, dyspnea, and peripheral edema. Patient denies any side effects of her medication(s) and is compliant with their regimen. She does not check BP's generally. Gayle denies regular aerobic exercise. She watches her diet for sodium, low fat and low cholesterol generally not very much.Has been out of her losartan for a few days and refuses any other medications. States she does not want to take that poison because it doesn't help anyway. States the only thing that works is xanax and was prescribed by a previous account services representative. Has brought this up many times over the years in this office and told no. Refused to see cardiology again as discussed before. Reports today her BP is better then usual because she took half a xanax. Last filled xanax through prescription over 16 months ago. When asked where she got the xanax, states she has been saving them for a year and a half and using sparingly. Refuses statin therapy at this time Last 3 Encounter BP Readings: Date: BP: 01/02/2024 178/102 01/04/2023 239/105 10/02/2022 238/104 DC: Does not use her cpap anymore and is always tired. Hypothyroidism: Taking medication as ordered. Denies any abnormal changes in weight. Chronic lower back pain that comes and goes. When pain is present it is from right lower back to right groin pain. Can also seem to be at right lower abdomen. Pain is just there but with standing up it will become sharp. Tylenol helps small amount and using over the counter pain patches. No recent injury or falls. Sometimes feels weak to legs if pain is severe. History of kidney stones with EDITH and hospitalizations, last a few years ago and did not follow up with urology for lithotripsy as recommended Last CT showing large non obstructing stones last year. States she feels this pain is due to musculoskeletal cause. Denies numbness, loss bowel/bladder control, or fever. REVIEW OF SYSTEMS See HPI PAST MEDICAL HISTORY No date: Bowel disease No date: Calculus of kidney No date: Dyslipidemia No date: Fracture No date: Generalized osteoarthrosis, unspecified site No date: Hypertension 02/20/2012: Hypothyroidism No date: Mitral valve disorders(424.0) No date: Myalgia and myositis, unspecified 02/20/2012: Non-ST elevation myocardial infarction (NSTEMI), subendocardial infarction, initial episode of care (HCC) No date: Type II or unspecified type diabetes mellitus without mention of complication, not stated as uncontrolled No date: Unspecified hypothyroidism PAST SURGICAL HISTORY No date: DILATION & CURETTAGE DX&/THER NONOBSTETRIC Comment: Dilation & curettage 2012: PRQ CARD STENT/ATH/ANGIO Comment: x 2 No date: TONSILLECTOMY PRIMARY/SECONDARY <AGE 12 Comment: Tonsillectomy ALLERGIES Iv Contrast [Iodine], Anesthetics - Amide Type - Select Amino Amides, Antihistimine, Enalapril, Erythromycin, Lopressor [Metoprolol Tartrate], Penicillins, and Synthroid [Levothyroxine Sodium] MEDICATIONS losartan (COZAAR) 50 mg tablet Take 1 tablet by mouth two times a day. carvedilol (COREG) 25 mg tablet Take 1 tablet by mouth two times a day. nitroglycerin sublingual (NITROQUICK) 0.4 mg SL tablet Dissolve 1 tablet under the tongue as needed. FOR CHEST PAIN. IF NO RELIEF CALL 911 CPAP (Patient not taking: Reported on 01/04/2023) aspirin, enteric coated (ASPIRIN, ENTERIC COATED) 81 mg EC tablet Take 1 tablet by mouth once daily. No family history on file. Social History Tobacco Use Smoking status: Every Day Packs/day: 1.00 Years: 45.00 Additional pack years: 0.00 Total pack years: 45.00 Types: Cigarettes Smokeless tobacco: Never Substance Use Topics Alcohol use: No Drug use: No PHYSICAL EXAM BP 178/102 Pulse 70 Resp 16 Wt 69.9 kg (154 lb) SpO2 97% BMI 26.43 kg/m General Appearance: well appearing, in no acute distress, alert Pysch: mood and affect broad and appropriate Eyes: conjunctiva pink and moist, no icterus, sclera white, non-injected Back: No pain to palpation, Full and painless ROM including flexion, extension, lateral side bending and rotation, Reflexes 2+ and symmetric, SLR negative bilateral in both supine and sitting position. Lungs: Lungs clear to auscultation. No wheezing, rhonchi, rales. Heart: RRR without murmur, gallop, or rubs. No ectopy Abdomen:Abdomen soft, Bowel sounds normal. No masses, organomegaly. Lower abdomen reported as tender without grimacing, guarding, rigidity, or rebound pain. Health maintenance reviewed with patient: Pneumococcal Vaccine: 65+(1 of 2 - PCV) Never done Depression Screening Never done Anxiety Screening Never done Hepatitis C Screening Never done BP Controlled (<130/80) Never done DTaP,Tdap,Td Vaccine(1 - Tdap) Never done Colorectal Cancer Screening Never done Lung Cancer Screening Never done Shingrix Vaccine(1 of 2) Never done RSV Vaccine(1 - 1-dose 60+ series) Never done Bone Density Screening Never done Covid-19 Vaccine( - ) Never done Advance Directive Discussion Never done LDL Cholesterol due on 06/28/2023 Annual PCP Team Chronic Disease Visit due on 07/03/2023 Serum Creatinine due on 07/14/2023 Hemoglobin/Hematocrit due on 10/04/2023 Influenza Vaccine(1) due on 01/20/2024 Diabetes Screening due on 07/14/2025 Lipid Screening due on 06/28/2027 DATA REVIEWED: No new labs ASSESSMENT/PLAN: 1. Right flank pain - ICD9: 789.09, ICD10: R10.9 (primary diagnosis) -possible kidney stone but only trace blood on urine but indicates UTI - will treat UTI patient wanting cephalexin, refuses macrobid. Will get updated kidney function so cephalexin can be dosed appropriately. - got to ER for increased pain, blood in urine, inability to urinate, fever, or other urgent concern. - UA DIP, URINE (POC) - URINALYSIS, WITH MICROSCOPIC - URINE CULTURE 2. Lower abdominal pain - ICD9: 789.09, ICD10: R10.30 As above - UA DIP, URINE (POC) - URINALYSIS, WITH MICROSCOPIC - URINE CULTURE 3. Other fatigue - ICD9: 780.79, ICD10: R53.83 So many possible causes - highly likely not using her CPAP is adding to her fatigue and/or her thyroid level may be off. Will check for other cause as well. - COMPLETE BLOOD COUNT AND DIFFERENTIAL - THYROID STIMULATING HORMONE - T3, FREE - T4 FREE/FREE THYROXINE - COMPREHENSIVE METABOLIC PANEL - HEMOGLOBIN A1C - VITAMIN D 25 HYDROXY - VITAMIN B12 4. Hypertensive kidney disease with stage 3a chronic kidney disease (HCC) - ICD9: 403.90, 585.3, ICD10: I12.9, N18.31 - Uncontrolled - Refuses other medications. Explained to patient xanax is not an appropriate treatment for HTN but will send her to cardiology to see what other options may available. - Continue current medications - Recommend home blood pressure monitoring, to bring results to next visit - Encouraged sodium restriction, DASH or Mediterranean diet - Recommend regular aerobic exercise - eGFR: stability unknown - Counseled on avoiding NSAIDs, adequate hydration - COMPLETE BLOOD COUNT AND DIFFERENTIAL - COMPREHENSIVE METABOLIC PANEL - CONSULT TO CARDIOLOGY 5. Hypothyroidism, unspecified type - ICD9: 244.9, ICD10: E03.9 - Instructed patient on importance of taking on an empty stomach either first thing in the morning or at bedtime. - LEVOTHYROXINE 100 MCG TABLET - THYROID STIMULATING HORMONE - T3, FREE - T4 FREE/FREE THYROXINE 6. Hyperlipidemia, unspecified hyperlipidemia type - ICD9: 272.4, ICD10: E78.5 - Control undetermined, due for labs - refuses medication at this time. In the past will not come back for follow up or fasting blood work. Will do lipid non fasting today. - Counseled on healthy diet and regular exercise - Discussed need for and benefit of weight loss. BMI 26.43 kg/(m^2) - COMPREHENSIVE METABOLIC PANEL - LIPID PANEL, NONFASTING - CONSULT TO CARDIOLOGY 7. DC (obstructive sleep apnea) - ICD9: 327.23, ICD10: G47.33 Refuses treatment of this. Discussed with patient the chronic conditions and issues with untreated sleep apnea including HTN and heart issues but continues to decline 8. Vitamin D deficiency - ICD9: 268.9, ICD10: E55.9 Currently not on a supplement - VITAMIN D 25 HYDROXY 9. Prediabetes - ICD9: 790.29, ICD10: R73.03 Not reviewed today Follow up in 4 weeks to review blood work - HEMOGLOBIN A1C 10. Benzodiazepine dependence (HCC) - ICD9: 304.10, ICD10: F13.20 History of this as diagnosed by her PCP years ago. Requests this yearly. In the past has been very angry when this was declined but patient without anger, raising her voice, or being verbally abusive today. Prescription instructions reviewed with patient as applicable. Potential red flag symptoms discussed with the patient. Reviewed appropriate action plan to take if red flag symptoms occur. Patient agreeable to treatment plan. Angélica Morataya APRN.CNP Medical Decision Making: Problems: Moderate: 2+ stable chronic illnesses and New problem with uncertain prognosis Data: Unique test(s) ordered: 3+ Risk: Low: Low risk from testing/treatment Moderate: Drug management Medical Decision Making Level: 4 - Moderate documented in this encounter [facility] 06-22-2023 Miscellaneous Notes Patient has been identified by name and date of : Yes Requested Prescriptions Pending Prescriptions Disp Refills losartan (COZAAR) 50 mg tablet 180 tablet 1 Sig: Take 1 tablet by mouth two times a day. carvedilol (COREG) 25 mg tablet 180 tablet 1 Sig: Take 1 tablet by mouth two times a day. RX INSTRUCTIONS: Patient needs 90 days due to insurance. Patient aware RX will be sent to pharmacy. No need to notify patient. Corazon Northfield Pss documented in this encounter [facility] 05-21-2023 Miscellaneous Notes Appt 06/11 with Angélica Morataya to discuss PAtient will need to reschedule cancelled February appointment. Patient must be seen every 6 months for refill of controlled substance. Patient called to refill Xanex; not on current med list. Uses [facility] in [place]. documented in this encounter [facility] 04-11-2023 Miscellaneous Notes Patient has been identified by name and date of : Yes, Provider Dr. Clark Date 04/11/23 Time 3:22 pm Patient phones for refill(s): Requested Prescriptions Pending Prescriptions Disp Refills losartan (COZAAR) 50 mg tablet 60 tablet 1 Sig: Take 1 tablet by mouth two times a day. carvedilol (COREG) 25 mg tablet 60 tablet 1 Sig: Take 1 tablet by mouth two times a day. nitroglycerin sublingual (NITROQUICK) 0.4 mg SL tablet 25 tablet 6 Sig: Dissolve 1 tablet under the tongue as needed. FOR CHEST PAIN. IF NO RELIEF CALL 911 Date of last office visit in primary care: 07/03/2022 Date of next office visit in primary care: Visit date not found Last 2 Encounter Wt Readings: Date: Wt: 01/04/2023 70.8 kg (156 lb) 10/02/2022 70.2 kg (154 lb 12.8 oz) Previous labs/tests for medication: Blood Pressure: BUN (mg/dL) Date Value 07/14/2022 17 09/03/2020 18 Sodium (mmol/L) Date Value 07/14/2022 142 09/03/2020 142 Last 1 Encounter BP Readings: Date: BP: 01/04/2023 239/105 Thank you. Juana Gupta LPN. Pharmacy verified in [facility] Patient has been identified by name and date of : Yes Patient aware RX will be sent to pharmacy. No need to notify patient. Patient phones for refill(s): Requested Prescriptions Pending Prescriptions Disp Refills losartan (COZAAR) 50 mg tablet 60 tablet 1 Sig: Take 1 tablet by mouth two times a day. carvedilol (COREG) 25 mg tablet 60 tablet 1 Sig: Take 1 tablet by mouth two times a day. nitroglycerin sublingual (NITROQUICK) 0.4 mg SL tablet 25 tablet 6 Sig: Dissolve 1 tablet under the tongue as needed. FOR CHEST PAIN. IF NO RELIEF CALL 911 Date of last office visit : 07/03/2022 Date of next office visit : Visit date not found Last 2 Encounter Wt Readings: Date: Wt: 01/04/2023 70.8 kg (156 lb) 10/02/2022 70.2 kg (154 lb 12.8 oz) Not applicable Please advise. Debra Fermin Pss documented in this encounter [facility] 03-02-2023 Miscellaneous Notes TC to patient who verbalized understanding of providers message and has no further questions at this time. BERNY Mcwilliams We will wait to discuss needed lab work in appointment since it sounds like she is specifically concerned about something. Thank you Angélica Morataya APRN.MT Spoke with pt and information listed below given. Pt verbalizes understanding. Apt booked and pt is asking to have blood work done. Pt would like to know if she is deficient in and vitamins or minerals. Please advise once orders are in. Juana Gupta LPN Patient is over due for follow up. Thank you Angélica Morataya APRN.OUTPATIENT PHYSICAL THERAPIST Patient has been identified by name and date of : No Patient phones for refill(s): Requested Prescriptions Pending Prescriptions Disp Refills losartan (COZAAR) 50 mg tablet 60 tablet 5 Sig: Take 1 tablet by mouth two times a day. carvedilol (COREG) 25 mg tablet 60 tablet 5 Sig: Take 1 tablet by mouth two times a day. Date of last office visit in primary care:07/03/22 Date of next office visit in primary care: Visit date not found Last 2 Encounter Wt Readings: Date: Wt: 01/04/2023 70.8 kg (156 lb) 10/02/2022 70.2 kg (154 lb 12.8 oz) Previous labs/tests for medication: Blood Pressure: BUN (mg/dL) Date Value 07/14/2022 17 09/03/2020 18 Sodium (mmol/L) Date Value 07/14/2022 142 09/03/2020 142 Last 1 Encounter BP Readings: Date: BP: 01/04/2023 239/105 Please advise. Thank you. Leora Wagner. Patient has been identified by name and date of : Yes Last office visit in this department: Visit date not found RX INSTRUCTIONS: Patient aware RX will be sent to pharmacy. No need to notify patient. Patient phones requesting refills as follows: Requested Prescriptions Pending Prescriptions Disp Refills losartan (COZAAR) 50 mg tablet 60 tablet 5 Sig: Take 1 tablet by mouth two times a day. carvedilol (COREG) 25 mg tablet 60 tablet 5 Sig: Take 1 tablet by mouth two times a day. Please review and advise. Marva Thakur documented in this encounter [facility] 01-04-2023 History of Present illness Narrative This note was created using beatlabriter. Subjective Gayle Cho is a 72 year old female with PMH HTN, hyperlipidemia, NSTEMI, CKD presents for illness. Acute onset 4 days ago +low back pain +abdominal pain +blood in urine HPI Review of Systems Objective BP (!) 239/105 Pulse 69 Temp 36.7 C (98 F) Resp 18 Wt 70.8 kg (156 lb) SpO2 99% BMI 26.78 kg/m Physical Exam Assessment and Plan ASSESSMENT/PLAN: 1. Hematuria, unspecified type - ICD9: 599.70, ICD10: R31.9 Patient noted to be hypertensive @ triage Urine specimen provided is cloudy and almost brown Discussed with patient my concerns for possible rhabdo vs. Obstructed kidney stone and EDITH Referred to ED as express care cannot obtain STAT lab work at time of presentation and/or imaging - UA DIP, URINE (POC) - URINE CULTURE Flor Botello APRN.OUTPATIENT PHYSICAL THERAPIST documented in this encounter [facility] 12-19-2022 Miscellaneous Notes Patient has been identified by name and date of : No Patient phones for refill(s): Requested Prescriptions Pending Prescriptions Disp Refills levothyroxine (LEVOXYL) 100 mcg tablet 90 tablet 3 Sig: Take 1 tablet by mouth once daily. Take on empty stomach. For Thyroid. Date of last office visit in primary care: 07/03/22 Last 2 Encounter Wt Readings: Date: Wt: 10/02/2022 70.2 kg (154 lb 12.8 oz) 07/03/2022 68.9 kg (152 lb) Previous labs/tests for medication: Thyroid: TSH Date Value 07/14/2022 2.340 mIU/L 09/03/2020 0.728 uU/mL Please advise. Thank you. Leora Johnson LPN Patient has been identified by name and date of : Yes Requested Prescriptions Pending Prescriptions Disp Refills levothyroxine (LEVOXYL) 100 mcg tablet 90 tablet 3 Sig: Take 1 tablet by mouth once daily. Take on empty stomach. For Thyroid. RX INSTRUCTIONS: Patient aware RX will be sent to pharmacy. No need to notify patient. Kaycee Rowe documented in this encounter [facility] 10-03-2022 Miscellaneous Notes Patient came in today for outpatient xray Recheck BP 168/84, and Temperature 98.8 States she is feeling slightly better today. Orders placed for CBC with diff and urinalysis and culture Will call with results and treatment plan documented in this encounter [facility] 10-03-2022 History of Present illness Narrative Radiology Service Progress Note PATIENT NAME: Gayle Cho DATE OF SERVICE: October 03, 2022 TIME: 11:02 AM PATIENT IDENTITY VERIFICATION COMPLETED USING TWO (2) IDENTIFIERS: Name and Date of confirmed by patient verbally. FALL SCREENING: Has the patient had 2 falls in the last year or 1 fall with injury or currently using an Ambulatory Assistive Device (Walker, Cane, Wheelchair, Crutches, etc.)? No PATIENT GENDER DATA: Female. status: : No status: NO. PATIENT RELEVANT IMPLANT DATA REVIEWED: Not Applicable RADIOLOGY DEPARTMENT: General X-ray: Exam(s) Completed: Chest X-Ray PERIPHERAL IV DATA: Not applicable SIGNED BY: RT Abdiel(R) October 03, 2022 11:02 AM documented in this encounter [facility] 10-02-2022 History of Present illness Narrative Subjective The history is provided by the patient. No russian language professor was used. HPI Gayle Cho is a 72 year old female who presents today for CC of cough congestion, fever, body aches, and fatigue. This started 5 days ago, states just noted fever in past 24 hours. She has not used any medications. Patient is requesting an antibiotic, declines testing for covid or flu. BP (!) 238/104 Pulse 78 Temp (!) 38.3 C (100.9 F) Resp 16 Wt 70.2 kg (154 lb 12.8 oz) SpO2 96% BMI 26.57 kg/m Recheck BP 220/98 Social History Tobacco Use Smoking status: Every Day Packs/day: 1.00 Years: 45.00 Pack years: 45.00 Types: Cigarettes Smokeless tobacco: Never Substance Use Topics Alcohol use: No Drug use: No PAST MEDICAL HISTORY Diagnosis Date Bowel disease Calculus of kidney Dyslipidemia Fracture Generalized osteoarthrosis, unspecified site Hypertension Hypothyroidism 02/20/2012 Mitral valve disorders(424.0) Myalgia and myositis, unspecified Non-ST elevation myocardial infarction (NSTEMI), subendocardial infarction, initial episode of care (HCC) 02/20/2012 Type II or unspecified type diabetes mellitus without mention of complication, not stated as uncontrolled Unspecified hypothyroidism I have confirmed and edited as necessary, the [facility] Review of Systems Constitutional: Positive for fever and malaise/fatigue. Negative for chills. HENT: Positive for congestion and sinus pain. Negative for ear pain and sore throat. Respiratory: Positive for cough. Negative for sputum production, shortness of breath and wheezing. Cardiovascular: Negative for chest pain. Gastrointestinal: Negative for abdominal pain, diarrhea, nausea and vomiting. Musculoskeletal: Positive for myalgias. Neurological: Negative for headaches. Objective Physical Exam Vitals and nursing note reviewed. HENT: Head: Normocephalic and atraumatic. Right Ear: Tympanic membrane, ear canal and external ear normal. Left Ear: Tympanic membrane, ear canal and external ear normal. Nose: Mucosal edema, congestion and rhinorrhea present. Right Sinus: No maxillary sinus tenderness or frontal sinus tenderness. Left Sinus: No maxillary sinus tenderness or frontal sinus tenderness. Mouth/Throat: Pharynx: Uvula midline. Posterior oropharyngeal erythema present. No oropharyngeal exudate. Cardiovascular: Rate and Rhythm: Normal rate and regular rhythm. Heart sounds: Normal heart sounds. Pulmonary: Effort: Pulmonary effort is normal. Breath sounds: Decreased air movement present. Decreased breath sounds present. Lymphadenopathy: Head: Right side of head: No submental, submandibular or tonsillar adenopathy. Left side of head: No submental, submandibular or tonsillar adenopathy. Cervical: No cervical adenopathy. Skin: General: Skin is warm and dry. Neurological: Mental Status: She is alert. Psychiatric: Mood and Affect: Affect normal. ASSESSMENT/PLAN: 1. Acute cough - ICD9: 786.2, ICD10: R05.1 Possible pneumonia, viral Patient left without having chest xray or telling anyone she was leaving. I called patient and she stated that she wanted an antibiotic, and she did not feel well enough to stay. Advised that due to blood pressure elevation as well as possible pneumonia, if feeling that ill would recommend she be seen in ER. Patient states she would not go to ER, will come intomorrow morning for BP recheck as well as chest xray. Advised will call tomorrow with further recommendations after testing. - XR CHEST 2V FRONTAL/LAT Diagnosis and treatment plan were discussed and questions were answered to the patient's satisfaction. Pt acknowledged understanding of concepts and follow up plan. Specific signs and symptoms that would indicate the need for higher level of care were discussed in detail warranting prompt ER evaluation. Natalee Piper APRN.MT documented in this encounter [facility] 09-04-2022 Miscellaneous Notes Patient notified. Please tell her to make the medication last for 6 months Regards, Jessica Clark MD Gayle Michele Cho is calling Jessica Clark MD today requesting a renewal of medication under her chart. ALPRAZolam (XANAX) 0.5 mg tablet Please send to [facility] Armstrong documented in this encounter [facility] 08-28-2022 Miscellaneous Notes Patient has been identified by name and date of : No Patient phones for refill(s): Requested Prescriptions Pending Prescriptions Disp Refills losartan (COZAAR) 50 mg tablet [Pharmacy Med Name: Losartan Potassium 50 MG Oral Tablet] 60 tablet 0 Sig: Take 1 tablet by mouth twice daily carvedilol (COREG) 25 mg tablet [Pharmacy Med Name: Carvedilol 25 MG Oral Tablet] 60 tablet 0 Sig: Take 1 tablet by mouth twice daily Date of last office visit in primary care: 07/03/22 Last 2 Encounter Wt Readings: Date: Wt: 07/03/2022 68.9 kg (152 lb) 03/31/2022 66.7 kg (147 lb) Previous labs/tests for medication: Blood Pressure: BUN (mg/dL) Date Value 07/14/2022 17 09/03/2020 18 Sodium (mmol/L) Date Value 07/14/2022 142 09/03/2020 142 Last 1 Encounter BP Readings: Date: BP: 07/03/2022 177/74[BP Josesito average[ Please advise. Thank you. Leora Johnson LPN documented in this encounter [facility] 08-28-2022 Miscellaneous Notes Patient has been identified by name and date of : No Patient phones for refill(s): Requested Prescriptions Pending Prescriptions Disp Refills nitroglycerin sublingual (NITROQUICK) 0.4 mg SL tablet 25 tablet 6 Sig: Dissolve 1 tablet under the tongue as needed. FOR CHEST PAIN. IF NO RELIEF CALL 911 Date of last office visit in primary care: Last 2 Encounter Wt Readings: Date: Wt: 07/03/2022 68.9 kg (152 lb) 03/31/2022 66.7 kg (147 lb) Previous labs/tests for medication: Not applicable Please advise. Thank you. Leora Johnson LPN Patient has been identified by name and date of : Yes Requested Prescriptions Pending Prescriptions Disp Refills nitroglycerin sublingual (NITROQUICK) 0.4 mg SL tablet 25 tablet 6 Sig: Dissolve 1 tablet under the tongue as needed. FOR CHEST PAIN. IF NO RELIEF CALL 911 RX INSTRUCTIONS: Patient aware RX will be sent to pharmacy. No need to notify patient. Kaycee Rowe documented in this encounter [facility] 07-03-2022 Instructions Angélica Morataya APRN.CNP - 07/03/2022 2:18 PM EST Try over the counter claritin/loratadine. Can start with a sharad dose once daily to make sure you tolerate this medication documented in this encounter [facility] 07-03-2022 History of Present illness Narrative CC: Patient presents with: F/U 3 Month vitamin d: patient states she had been on this in the past but was taken off of it and feels needs to go back on it. HPI Gayle Cho is a 72 year old female who presents today for routine follow up. Has had poor blood pressure control for years. HTN and HLD: Ms. Cho indicates that she is feeling well and denies chest pain, palpitations, dyspnea, and peripheral edema. Patient denies any side effects of her medication(s) and is compliant with their regimen. Did stop her pravastatin for a while but did restart this medication. She does check BP's away from this office with average BP's in the 200s/100s recently range. Gayle denies regular aerobic exercise. She watches her diet for sodium, low fat and low cholesterol some of the time. Last 3 Encounter BP Readings: Date: BP: 07/03/2022 177/74[BP Josesito average[ 03/31/2022 152/80[BP Josesito[ 03/23/2022 212/83[BP Josesito average\[ Did have a headache this weekend and a nose bleed last Sunday. No headache at this time and no further nosebleeds. Depression: Sleep: difficulty staying asleep, gets about 4 hours at a time Alcohol use: does not drink any alcohol Drug use: No Appetite: good Stresses: Major stressor: grief over passing away a year ago. Suicidal Thoughts: No suicidal ideation, intent or plan Support: Comes from multiple sources including family Counseling: No but is in an online support group Still with cough since fair week that produces small amount of yellow sputum. Sinus congestion and drainage which is clear in color. Reports feeling chilled last week. When last seen doxycycline was ordered but patient did not take this. Denies fever, chest pain, edema, wheezing, or shortness of breath. No history of asthma or COPD but is a current cigarette smoker. Does report chronic fatigue that recently has increased over the last few weeks and caused her to just want to sit around. REVIEW OF SYSTEMS General: no fevers, no chills, no night sweats, no recurrent infections, no change in appetite, and no significant changes in weight Respiratory: no wheezing, no shortness of breath, no hemoptysis Cardiovascular: no chest pain, no chest pressure, no palpitations, and no swelling GI: No nausea, vomiting, or diarrhea Neurologic: No weakness, numbness, tingling, dizziness, memory loss, syncope. PAST MEDICAL HISTORY Diagnosis Date Bowel disease Calculus of kidney Dyslipidemia Fracture Generalized osteoarthrosis, unspecified site Hypertension Hypothyroidism 02/20/2012 Mitral valve disorders(424.0) Myalgia and myositis, unspecified Non-ST elevation myocardial infarction (NSTEMI), subendocardial infarction, initial episode of care ([facility]) 02/20/2012 Type II or unspecified type diabetes mellitus without mention of complication, not stated as uncontrolled Unspecified hypothyroidism PAST SURGICAL HISTORY Procedure Laterality Date DILATION & CURETTAGE DX&/THER NONOBSTETRIC Dilation & curettage PRQ CARD STENT/ATH/ANGIO 2012 x 2 TONSILLECTOMY PRIMARY/SECONDARY <AGE 10 Tonsillectomy ALLERGIES Iv Contrast [Iodine], Anesthetics - Amide Type - Select Amino Amides, Antihistimine, Enalapril, Erythromycin, Lopressor [Metoprolol Tartrate], Penicillins, and Synthroid [Levothyroxine Sodium] MEDICATIONS pravastatin (PRAVACHOL) 40 mg tablet TAKE 1 TABLET BY MOUTH ONCE DAILY AT BEDTIME carvedilol (COREG) 25 mg tablet Take 1 tablet by mouth twice daily. losartan (COZAAR) 50 mg tablet Take 1 tablet by mouth twice daily. levothyroxine (LEVOXYL) 100 mcg tablet Take 1 tablet by mouth once daily. Take on empty stomach. For Thyroid. nitroglycerin sublingual (NITROQUICK) 0.4 mg SL tablet Dissolve 1 tablet under the tongue as needed. FOR CHEST PAIN. IF NO RELIEF CALL 911 aspirin, enteric coated (ASPIRIN, ENTERIC COATED) 81 mg EC tablet Take 1 tablet by mouth once daily. cholecalciferol (VITAMIN D3) 1,000 unit tab tablet Take 1,000 Units by mouth once daily. (Patient not taking: Reported on 07/03/2022) dexAMETHasone (DECADRON) 6 mg tablet Take 6 mg by mouth twice daily with meals. (Patient not taking: Reported on 03/22/2021 ) Dextromethorphan-guaiFENesin (TUSSIN DM) 10-100 mg/5 mL liquid Take 5 mL by mouth every 12 hours. (Patient not taking: Reported on 08/03/2021 ) albuterol HFA (PROAIR HFA) 90 mcg/actuation inhaler Inhale 2 Puffs as instructed every 4 hours as needed. (Patient not taking: Reported on 07/03/2022) CPAP No family history on file. Social History Tobacco Use Smoking status: Every Day Packs/day: 1.00 Years: 45.00 Pack years: 45.00 Types: Cigarettes Smokeless tobacco: Never Substance Use Topics Alcohol use: No Drug use: No PHYSICAL EXAM BP 177/74 Pulse 63 Wt 68.9 kg (152 lb) SpO2 97% BMI 26.09 kg/m General Appearance: well appearing, in no acute distress, alert Pysch: mood and affect broad and appropriate Skin: Skin color, texture, turgor normal for age; Eyes: conjunctiva pink and moist, no icterus, sclera white, non-injected Ears: external ears normal to inspection and palpation, canals clear, Left tympanic membrane normal. , Right tympanic membrane normal Nose/sinus: Nares normal. Septum midline. Mucosa normal. No drainage., No sinus tenderness Neck: Thyroid normal size and symmetric without palpable nodules, Neck supple, No adenopathy Oropharynx: tongue midline and normal, soft palate, uvula, and tonsils normal, palpation of salivary glands negative Lymph nodes: No cervical lymphadenopathy and No supraclavicular lymphadenopathy Lungs: Lungs clear to auscultation. No wheezing, rhonchi, rales. Heart: RRR without murmur, gallop, or rubs. No ectopy BUE Extremities: No deformities, edema, skin discoloration, clubbing or cyanosis. Good capillary refill. Health maintenance reviewed with patient: COVID-19 VACCINE(1) Never done PNEUMOCOCCAL: 63+(1 - PCV) Never done HEPATITIS C SCREENING Never done BP CONTROLLED (<130/80) Never done DTAP,TDAP,TD(1 - Tdap) Never done MAMMOGRAM Never done COLORECTAL CANCER SCREENING Never done LUNG CANCER SCREENING Never done SHINGRIX VACCINE(1 of 2) Never done BONE DENSITY Never done INFLUENZA(1) Never done ADVANCE DIRECTIVE DISCUSSION Never done DEPRESSION ASSESSMENT Never done ANNUAL PCP TEAM CHRONIC DISEASE VISIT due on 03/31/2023 SERUM CREATININE due on 03/31/2023 HEMOGLOBIN/HEMATOCRIT due on 03/31/2023 LDL CHOLESTEROL due on 06/28/2023 URINE ALBUMIN:CREATININE RATIO Discontinued DILATED RETINAL EXAM Discontinued DIABETIC FOOT EXAM Discontinued HBA1C Discontinued DATA REVIEWED: Most recent labs ASSESSMENT/PLAN: 1. Other fatigue - ICD9: 780.79, ICD10: R53.83 (primary diagnosis) - possible result of depression or other cause - TSH BLD - VITAMIN B12 BLOOD - HGB A1C - COMP METABOLIC PANEL - CBC + DIFF 2. Hypertension, unspecified type - ICD9: 401.9, ICD10: I10 - poor control - patient agreeable to try low dose amlodipine - discussed with patient to reschedule with her account services representative. - Continue current medication(s) - Encouraged dietary sodium restriction/DASH diet - Recommended regular aerobic exercise. - Recommend home blood pressure monitoring, to bring results in on next visit - Goal of BP <130/80 - Patient counselled on smoking cessation. - COMP METABOLIC PANEL - follow up in 2-4 weeks - go to ER for sudden or severe headache, weakness, numbness, confusion, or any other urgent concern. 3. Hyperlipidemia, unspecified hyperlipidemia type - ICD9: 272.4, ICD10: E78.5 - suboptimal control - possibly because of stopping pravastatin for a short period - Continue current medication. - Encouraged following a low fat, low cholesterol diet. - Discussed the benefits of regular aerobic exercise and weight loss. 4. Chronic cough - ICD9: 786.2, ICD10: R05.3 - discussed using loratadine to see if this would help/patient concerned with her sensitivity to medications - cxr in March without acute concerns - unable to do flonase as she has a history of increased occular pressure , discussed using saline nasal spray and using a humidifier at night. 5. Depression, unspecified depression type - ICD9: 311, ICD10: F32.A - patient declined medication or counseling at this time so not further discussed 6. Prediabetes - ICD9: 790.29, ICD10: R73.03 - HGB A1C - COMP METABOLIC PANEL - CBC + DIFF 7. Hypothyroidism, unspecified type - ICD9: 244.9, ICD10: E03.9 - Instructed patient on importance of taking on an empty stomach either first thing in the morning or at bedtime. - TSH BLD 8. Vitamin D deficiency - ICD9: 268.9, ICD10: E55.9 - VITAMIN D 25 HYDROXY Prescription instructions reviewed with patient as applicable. Potential red flag symptoms discussed with the patient. Reviewed appropriate action plan to take if red flag symptoms occur. Patient agreeable to treatment plan. Angélica Morataya APRN.CNP documented in this encounter [facility] 04-04-2022 Miscellaneous Notes Patient notified and verbalized understanding. Leora Johnson LPN Please let patient know her potassium is normal and kidney function is still similar to previously, I recommend her seeing her account services representative for other blood pressure options and follow up with urology for stones that resulted in acute kidney injury earlier this year. Thank you Angélica Morataya APRN.CNP documented in this encounter [facility] 03-31-2022 Miscellaneous Notes Left message for return call. Please let patient know there is no infection on her chest xray so continue with ordered antibiotic as this is probably related to sinusitis. Also, since we were not able to address her prediabetes in office, I will mail her information on this or she can come in for an additional visit. Thank you Angélica Morataya APRN.CNP documented in this encounter [facility] 03-31-2022 Instructions Angélica Morataya APRN.CNP - 03/31/2022 12:06 PM EST Schedule with cardiology and urology. documented in this encounter [facility] 03-31-2022 History of Present illness Narrative CC: Patient presents with: Recheck: BP follow up HPI Gayle Cho is a 72 year old female who presents today for blood pressure. Patient has had uncontrolled blood pressure for quite a while and has changed medications and stopped medications on her own in the past. Has not seen cardiology in a year with previous [place]. Had acute kidney failure related to kidney stones this summer, left the hospital AMA and has never follow up with urology. Is a smoker and been told if she quits this will improve her blood pressure and has not done so. Also has uncontrolled sleep apnea that she has been instructed this can cause uncontrolled blood pressure but still refusing to wear her cpap as she feels the cpap machine causes cancer. Does not want any other medications and only wants xanax for her blood pressure as she states this is all that works. Got irritated in visit when told it is not indicated for blood pressure. Pointed her finger at me saying angrily that this is why I hate doctors. Its all about rules and not want the patient needs. Ms. Cho denies headache, chest pain, palpitations, dyspnea, and peripheral edema. Does not check her blood pressure at home as she states it is always up. Sinus congestion and cough at last visit 4 weeks ago and given cefdinir for sinusitis. Feels that it has improved but still with symptoms. Still with some sinus congestion and yellow productive cough, and feels short of breath occurs with the intense coughing. Denies fever chills, swelling, chest pain, or edema. REVIEW OF SYSTEMS General: no fevers, no chills, no night sweats, no recurrent infections, no change in appetite, no change in energy, and no significant changes in weight HEENT: no frequent or significant headaches, no changes in hearing, no visual changes, no nose bleeds Respiratory: no wheezing, no shortness of breath, no hemoptysis Cardiovascular: no chest pain, no chest pressure, no palpitations, and no swelling Endocrine: no fatigue, no weight gain, no weight loss, no cold intolerance, no heat intolerance, no polyuria, no polyphagia, and no polydipsia Neurologic: No headache, weakness, numbness, tingling, dizziness, syncope. PAST MEDICAL HISTORY Diagnosis Date Bowel disease Calculus of kidney Dyslipidemia Fracture Generalized osteoarthrosis, unspecified site Hypertension Hypothyroidism 02/20/2012 Mitral valve disorders(424.0) Myalgia and myositis, unspecified Non-ST elevation myocardial infarction (NSTEMI), subendocardial infarction, initial episode of care ([facility]) 02/20/2012 Type II or unspecified type diabetes mellitus without mention of complication, not stated as uncontrolled Unspecified hypothyroidism PAST SURGICAL HISTORY Procedure Laterality Date DILATION & CURETTAGE DX&/THER NONOBSTETRIC Dilation & curettage PRQ CARD STENT/ATH/ANGIO 2011 x 2 TONSILLECTOMY PRIMARY/SECONDARY <AGE 10 Tonsillectomy ALLERGIES Iv Contrast [Iodine], Anesthetics - Amide Type - Select Amino Amides, Antihistimine, Enalapril, Erythromycin, Lopressor [Metoprolol Tartrate], Penicillins, and Synthroid [Levothyroxine Sodium] MEDICATIONS pravastatin (PRAVACHOL) 40 mg tablet TAKE 1 TABLET BY MOUTH ONCE DAILY AT BEDTIME carvedilol (COREG) 25 mg tablet Take 1 tablet by mouth twice daily. losartan (COZAAR) 50 mg tablet Take 1 tablet by mouth twice daily. levothyroxine (LEVOXYL) 100 mcg tablet Take 1 tablet by mouth once daily. Take on empty stomach. For Thyroid. cholecalciferol (VITAMIN D3) 1,000 unit tab tablet Take 1,000 Units by mouth once daily. dexAMETHasone (DECADRON) 6 mg tablet Take 6 mg by mouth twice daily with meals. (Patient not taking: Reported on 03/22/2021 ) Dextromethorphan-guaiFENesin (TUSSIN DM) 10-100 mg/5 mL liquid Take 5 mL by mouth every 12 hours. (Patient not taking: Reported on 08/03/2021 ) albuterol HFA (PROAIR HFA) 90 mcg/actuation inhaler Inhale 2 Puffs as instructed every 4 hours as needed. nitroglycerin sublingual (NITROQUICK) 0.4 mg SL tablet Dissolve 1 tablet under the tongue as needed. FOR CHEST PAIN. IF NO RELIEF CALL 911 CPAP aspirin, enteric coated (ASPIRIN, ENTERIC COATED) 81 mg EC tablet Take 1 tablet by mouth once daily. No family history on file. Social History Tobacco Use Smoking status: Every Day Packs/day: 1.00 Years: 45.00 Pack years: 45.00 Types: Cigarettes Smokeless tobacco: Never Substance Use Topics Alcohol use: No Drug use: No PHYSICAL EXAM BP 192/80 Pulse 60 Resp 16 Wt 66.7 kg (147 lb) BMI 25.23 kg/m General Appearance: well appearing, in no acute distress, alert Pysch: mood and affect broad and appropriate Skin: Skin color, texture, turgor normal for age; Eyes: conjunctiva pink and moist, no icterus, sclera white, non-injected Lungs: Lungs clear to auscultation. No wheezing, rhonchi, rales. Heart: RRR without murmur, gallop, or rubs. No ectopy Health maintenance reviewed with patient: COVID-19 VACCINE(1) Never done PNEUMOCOCCAL: 63+(1 - PCV) Never done HEPATITIS C SCREENING Never done BP CONTROLLED (<130/80) Never done DTAP,TDAP,TD(1 - Tdap) Never done MAMMOGRAM Never done COLORECTAL CANCER SCREENING Never done LUNG CANCER SCREENING Never done SHINGRIX VACCINE(1 of 2) Never done BONE DENSITY Never done ADVANCE DIRECTIVE DISCUSSION Never done DEPRESSION ASSESSMENT Never done INFLUENZA(1) Never done LDL CHOLESTEROL due on 08/04/2022 ANNUAL PCP TEAM CHRONIC DISEASE VISIT due on 02/24/2023 SERUM CREATININE due on 02/24/2023 HEMOGLOBIN/HEMATOCRIT due on 02/24/2023 URINE ALBUMIN:CREATININE RATIO Discontinued DILATED RETINAL EXAM Discontinued DIABETIC FOOT EXAM Discontinued HBA1C Discontinued DATA REVIEWED: Most recent labs ASSESSMENT/PLAN: 1. Hypertension, unspecified type - ICD9: 401.9, ICD10: I10 (primary diagnosis) - poor control - xanax not indicated for this - please call if you would like to try other medications as uncontrolled blood pressure increases risk of stroke and heart attack - follow up with cardiology - follow up in 3 months or earlier if needed - go to ER for headache, chest pain, shortness of breath, or other urgent concerns. - Recommended regular aerobic exercise. - Recommend home blood pressure monitoring, to bring results in on next visit - Goal of BP <130/80 - CBC + DIFF 2. Acute cough - ICD9: 786.2, ICD10: R05.1 - still with some sinusitis - doxycycline ordered - XR CHEST 2V FRONTAL/LAT 3. Hyperkalemia - ICD9: 276.7, ICD10: E87.5 - BASIC METABOLIC PNL 4. Prediabetes - ICD9: 790.29, ICD10: R73.03 - discussed hgba1c elevated indicating prediabetes but not fully educated on this as patient was so irritated over me not prescribing xanax and how she hates doctors it was difficult to educate on this. Will send education via mail to her. 5. Urinary tract stones - ICD9: 592.9, ICD10: N20.9 Follow back up with urology Prescription instructions reviewed with patient as applicable. Potential red flag symptoms discussed with the patient. Reviewed appropriate action plan to take if red flag symptoms occur. Patient agreeable to treatment plan. Angélica Morataya APRN.MT documented in this encounter [facility] 03-31-2022 Miscellaneous Notes Patient returned call and given provider's message re: BP. Patient will discuss at her appt at 11:20 today with Machine Clerical Verifier. documented in this encounter [facility] 03-29-2022 Miscellaneous Notes left message to notify patient that is aware of blood pressures and would recommend more meds or adjustments to get blood pressures down to call office back. Leora Johnson LPN Well there is not much we can do, if she wont take any more medication. Jessica Navarro MD Pt called and is notified of providers message. Pt reports she is on Coreg 25 mg twice a day and Losartan 50 mg twice a day. She states she not open to much more. Fanny Vargas RN Please list all the medications that she is taking Jessica Navarro MD Manual Readin/82 Pulse: 66 BP [place] average: 212/83 P: 71 Repeat BP Check: 222/90 P73 #1 212/86 P68 #2 203/84 P72 #3 211/81 P68 #4 212/78 P74 #5 213/77 P68 #6 Reason for blood pressure check - Last BP elevated and Medication adjustment Patient is: Taking medication as prescribed Yes Took medication today Yes If no, date medication last taken N/A Experiencing side effects No BP was elevated at last appt 02/24/22. Losartan was increased to 50mg twice daily. Tolerating medication well. Does note that it does bother her stomach if she does not eat before taking. Also states that she gets very itchy skin in the evenings since taking the higher dose; will note some red blotchy areas. Will Denies any chest pain, shortness of breath, dizziness, or headaches. Daily caffeine use. Current everyday tobacco use. Alert and oriented. Pt has been identified by name and birthdate: Yes Allergies reviewed: Yes Latex allergy: no. Medication - prescribed and OTC reviewed and updated: Yes Do you need any prescription refills prior to your next visit: No Health Maintenance: Reviewed and not up to date and provider notified Pt is very anxious/nervous with everything that she is going through and still coping with from the last year. Advised that she would be contacted after review by PCP. Georgina Shirley LPN documented in this encounter [facility] 03-23-2022 History of Present illness Narrative Manual Readin/82 Pulse: 66 BP [place] average: 212/83 P: 71 Repeat BP Check: 222/90 P73 #1 212/86 P68 #2 203/84 P72 #3 211/81 P68 #4 212/ P74 #5 213/ P68 #6 Reason for blood pressure check - Last BP elevated and Medication adjustment Patient is: Taking medication as prescribed Yes Took medication today Yes If no, date medication last taken N/A Experiencing side effects No BP was elevated at last appt 02/24/22. Losartan was increased to 50mg twice daily. Tolerating medication well. Does note that it does bother her stomach if she does not eat before taking. Also states that she gets very itchy skin in the evenings since taking the higher dose; will note some red blotchy areas. Will Denies any chest pain, shortness of breath, dizziness, or headaches. Daily caffeine use. Current everyday tobacco use. Alert and oriented. Pt has been identified by name and birthdate: Yes Allergies reviewed: Yes Latex allergy: no. Medication - prescribed and OTC reviewed and updated: Yes Do you need any prescription refills prior to your next visit: No Health Maintenance: Reviewed and not up to date and provider notified Pt is very anxious/nervous with everything that she is going through and still coping with from the last year. Advised that she would be contacted after review by PCP. Georgina Shirley LPN documented in this encounter [facility] 03-14-2022 Miscellaneous Notes Patient has been identified by name and date of : Yes Pharmacy phones for refill(s): Requested Prescriptions Pending Prescriptions Disp Refills pravastatin (PRAVACHOL) 40 mg tablet [Pharmacy Med Name: Pravastatin Sodium 40 MG Oral Tablet] 30 tablet 0 Sig: TAKE 1 TABLET BY MOUTH ONCE DAILY AT BEDTIME Date of last office visit in primary care: 02/24/22 next apt 03/29/22 Last 2 Encounter Wt Readings: Date: Wt: 02/24/2022 65.8 kg (145 lb) 10/18/2021 65.3 kg (144 lb) Previous labs/tests for medication: Cholesterol: HDL Cholesterol (mg/dL) Date Value 08/04/2021 34 09/03/2020 33 LDL Cholesterol (mg/dL) Date Value 08/04/2021 62 09/03/2020 90 ALT (U/L) Date Value 02/24/2022 10 09/03/2020 22 Non HDL Cholesterol (mg/dL) Date Value 08/04/2021 127 09/03/2020 155 Thank you. Juana Gupta LPN documented in this encounter [facility] 02-24-2022 Miscellaneous Notes Noted. Change appears to have been made last April. Will be reviewed in upcoming appointment. Thank you Angélica Morataya APRN.MT Patient calls and states that she was unaware that her losartan dose got decreased in April. Patient has been taking 50 mg twice a day. Due to this fact patient is almost out of medication. Patient has enough medication for tonight, but none for tomorrow morning. Patient asking if prescription can be called in. Advised patient that she needs to set up appointment with provider to go over medications. Patient voiced understanding. Patient has a [address] Clark tomorrow morning. Please review and advise, Shital Encarnacion RN documented in this encounter [facility] 12-09-2021 Miscellaneous Notes The following approved medication requests have been transmitted electronically. Signed Prescriptions Disp Refills pravastatin (PRAVACHOL) 40 mg tablet 30 tablet 0 Sig: Take 1 tablet by mouth daily at bedtime. RINKU: No Authorizing Provider: NIEVES ROBERTS levothyroxine (LEVOXYL) 100 mcg tablet 30 tablet 0 Sig: Take 1 tablet by mouth once daily. Take on empty stomach. For Thyroid. RINKU: No Authorizing Provider: NIEVES ROBERTS ALPRAZolam (XANAX) 0.5 mg tablet 30 tablet 0 Sig: Take 1 tablet by mouth at bedtime as needed for up to 30 days. MICHELL Class: C-IV RINKU: No Authorizing Provider: NIEVES ROBERTS DO Per providers note on 08/17/21 she is no longer Pts provider. When talking with the Pt she reports she was never told provider was no longer going to see her, but stated that she didn't like her. Will put in for 1 month refills so patient does not run out of medication. Will need to let Pt know that she is no longer with providers group. Patient has been identified by name and date of : Yes Patient phones for refill(s): Pending Prescriptions Disp Refills PRAVASTATIN 40 MG TABLET 90 tablet 0 Sig: Take 1 tablet by mouth daily at bedtime. RINKU: No LEVOTHYROXINE 100 MCG TABLET 90 tablet 1 Sig: Take 1 tablet by mouth once daily. Take on empty stomach. For Thyroid. RINKU: No ALPRAZOLAM 0.5 MG TABLET 30 tablet 0 Sig: Take 1 tablet by mouth at bedtime as needed for up to 30 days. MICHELL Class: C-IV RINKU: No Date of last office visit in primary care: 08/17/21 Future visit: none Last 2 Encounter Wt Readings: Date: Wt: 10/18/2021 65.3 kg (144 lb) 08/17/2021 67.1 kg (148 lb) Previous labs/tests for medication: Thyroid: TSH Date Value 08/04/2021 0.513 mIU/L 09/03/2020 0.728 uU/mL Cholesterol: HDL Cholesterol (mg/dL) Date Value 08/04/2021 34 09/03/2020 33 LDL Cholesterol (mg/dL) Date Value 08/04/2021 62 09/03/2020 90 ALT (U/L) Date Value 09/03/2020 22 Non HDL Cholesterol (mg/dL) Date Value 08/04/2021 127 09/03/2020 155 Liver Function: ALT (U/L) Date Value 09/03/2020 22 AST (U/L) Date Value 09/03/2020 22 Please advise. Thank you. Fanny Vargas RN documented in this encounter [facility] 10-21-2021 Miscellaneous Notes Phone call placed, patient advised (see prior provider encounter) Patient verbalized understanding, urine culture results faxed per request to Dr. Zamora [phone]. Muriel Gupta LPN documented in this encounter [facility] 10-19-2021 Miscellaneous Notes Patient calling asking that the lab results from express care visit yesterday be faxed to her Urologist, Dr Zamora at [phone]. Printed BMP, CBC, Urine faxed as requested. Urine culture still in process. documented in this encounter [facility] 10-18-2021 Miscellaneous Notes Flor, Please take my name off as pcp I am not patients pcp. I told that to her in my last visit. She is extremely disrespectful and we both agreed that we do not have a productive doctor patient relationship and that I would care for her only for a month after the last visit Please review my note on patient in july CBC reveals leukocytosis of 15.26 BMP reveals BUN 28 and Creatinine 1.68 Recommended patient to ED for concerns of obstructed renal calculi want to give the antibiotic a chance to work Discussed that the ATB will not clear a renal stone, nor will it improve her kidney function I will call my urologist in the morning Discussed with patient that I cannot force her to go to ED, but concerns that if there is an obstruction and it is not remedied, could cause further kidney damage. Chart CC to Dr. Clark. documented in this encounter [facility] 10-18-2021 History of Present illness Narrative This note was created using beatlabriter. Subjective Gayle Cho is a 71 year old female. 71 year old female with PMH HTN, HPL, T2DM, hypothyroidism, fibromyalgia & urinary stones. Presents with complaints of possible UTI Acute onset yesterday mornning + hematuria, fever, nausea, and decreased appetite. States she woke up at 3:30 yesterday and had episodes of grape colored urine. States it just feels like something is scratching my bladder. Pain radiates to right flank 4/10 Denies genital pain, straining, vomiting/diarrhea No OTC remedies or medications used [employer] ASSOC[employer]. Pt states she had urinary stones removed in July 2021 at [facility]. Unclear on exact procedure (lithotripsy vs. Stent placement) or physician who oversaw here care. The history is provided by the patient. No russian language professor was used. Hematuria This is a new problem. The current episode started yesterday. The problem has been gradually worsening since onset. She describes the hematuria as gross hematuria. The hematuria occurs during the initial portion of her urinary stream. She reports no clotting in her urine stream. Her pain is at a severity of 4/10. The pain is mild. She describes her urine color as dark red. Irritative symptoms include frequency, nocturia and urgency. Obstructive symptoms include dribbling and an intermittent stream. Obstructive symptoms do not include incomplete emptying, a slower stream, straining or a weak stream. Associated symptoms include abdominal pain, chills, fever, flank pain and nausea. Pertinent negatives include no dysuria, facial swelling, genital pain, hesitancy, inability to urinate or vomiting. She is not sexually active. Her past medical history is significant for hypertension, kidney stones and recent infection. There is no history of trauma, sickle cell disease, STDs or tobacco use. PAST MEDICAL HISTORY Diagnosis Date Bowel disease Calculus of kidney Dyslipidemia Fracture Generalized osteoarthrosis, unspecified site Hypertension Hypothyroidism 02/20/2012 Mitral valve disorders(424.0) Myalgia and myositis, unspecified Non-ST elevation myocardial infarction (NSTEMI), subendocardial infarction, initial episode of care ([facility]) 02/20/2012 Type II or unspecified type diabetes mellitus without mention of complication, not stated as uncontrolled Unspecified hypothyroidism PAST SURGICAL HISTORY Procedure Laterality Date DILATION & CURETTAGE DX&/THER NONOBSTETRIC Dilation & curettage PRQ CARD STENT/ATH/ANGIO 2011 x 2 TONSILLECTOMY PRIMARY/SECONDARY <AGE 10 Tonsillectomy ALLERGIES Iv Contrast [Iodine], Anesthetics - Amide Type - Select Amino Amides, Antihistimine, Enalapril, Erythromycin, Lopressor [Metoprolol Tartrate], Penicillins, and Synthroid [Levothyroxine Sodium] MEDICATIONS carvedilol (COREG) 25 mg tablet Take 1 tablet by mouth twice daily. amLODIPine (NORVASC) 5 mg tablet Take 1 tablet by mouth once daily. hydroCHLOROthiazide 12.5 mg capsule Take 1 capsule by mouth once daily. losartan (COZAAR) 25 mg tablet Take 1 tablet by mouth twice daily. cholecalciferol (VITAMIN D) 1,000 unit tab tablet Take 1,000 Units by mouth once daily. levothyroxine (LEVOXYL) 100 mcg tablet Take 1 tablet by mouth once daily. Take on empty stomach. For Thyroid. pravastatin (PRAVACHOL) 40 mg tablet Take 1 tablet by mouth daily at bedtime. albuterol HFA (PROAIR HFA) 90 mcg/actuation inhaler Inhale 2 Puffs as instructed every 4 hours as needed. nitroglycerin sublingual (NITROQUICK) 0.4 mg SL tablet Dissolve 1 tablet under the tongue as needed. FOR CHEST PAIN. IF NO RELIEF CALL 911 CPAP aspirin, enteric coated (ECOTRIN LOW STRENGTH) 81 mg EC tablet Take 1 tablet by mouth once daily. cephALEXin (KEFLEX) 500 mg capsule Take 1 capsule by mouth twice daily for 7 days. levoFLOXacin (LEVAQUIN) 500 mg tablet Take 1 tablet by mouth once daily. dexAMETHasone (DECADRON) 6 mg tablet Take 6 mg by mouth twice daily with meals. Dextromethorphan-guaiFENesin (TUSSIN DM) 10-100 mg/5 mL liquid Take 5 mL by mouth every 12 hours. No family history on file. Social History Tobacco Use Smoking status: Current Every Day Smoker Packs/day: 1.00 Years: 45.00 Pack years: 45.00 Types: Cigarettes Smokeless tobacco: Never Used Substance Use Topics Alcohol use: No Drug use: No Jennifer Bisler-Clive Review of Systems Constitutional: Positive for activity change, appetite change, chills, fatigue and fever. Negative for diaphoresis. HENT: Negative for congestion, ear discharge, ear pain, facial swelling, sinus pressure, sinus pain and sore throat. Eyes: Negative for pain, discharge, redness, itching and visual disturbance. Respiratory: Negative for chest tightness and shortness of breath. Cardiovascular: Negative for chest pain. Gastrointestinal: Positive for abdominal pain and nausea. Negative for constipation, diarrhea and vomiting. Endocrine: Negative for cold intolerance and heat intolerance. Genitourinary: Positive for difficulty urinating, flank pain, frequency, hematuria, nocturia, pelvic pain and urgency. Negative for dysuria, hesitancy and incomplete emptying. scratching sensation in bladder Musculoskeletal: Positive for back pain. Negative for gait problem and joint swelling. Skin: Negative for color change, pallor, rash and wound. Allergic/Immunologic: Positive for environmental allergies and immunocompromised state. Negative for food allergies. GA with stents Neurological: Negative for dizziness, tremors, speech difficulty, weakness, light-headedness and headaches. Psychiatric/Behavioral: Negative for agitation, behavioral problems and confusion. Objective BP 118/72 Pulse 73 Temp 37.6 C (99.6 F) (Tympanic) Resp 18 Wt 65.3 kg (144 lb) SpO2 98% BMI 24.72 kg/m Physical Exam Vitals and nursing note reviewed. Constitutional: General: She is not in acute distress. Appearance: Normal appearance. She is normal weight. She is not ill-appearing, toxic-appearing or diaphoretic. HENT: Head: Normocephalic. Right Ear: Tympanic membrane, ear canal and external ear normal. There is no impacted cerumen. Left Ear: Tympanic membrane, ear canal and external ear normal. There is no impacted cerumen. Nose: Nose normal. No congestion or rhinorrhea. Mouth/Throat: Mouth: Mucous membranes are moist. Pharynx: No oropharyngeal exudate or posterior oropharyngeal erythema. Eyes: General: No scleral icterus. Right eye: No discharge. Left eye: No discharge. Extraocular Movements: Extraocular movements intact. Conjunctiva/sclera: Conjunctivae normal. Pupils: Pupils are equal, round, and reactive to light. Cardiovascular: Rate and Rhythm: Normal rate and regular rhythm. Pulses: Normal pulses. Heart sounds: Normal heart sounds. No murmur heard. No gallop. Pulmonary: Effort: Pulmonary effort is normal. No respiratory distress. Breath sounds: Normal breath sounds. No wheezing or rales. Chest: Chest wall: No tenderness. Abdominal: General: Abdomen is flat. Bowel sounds are normal. There is no distension. Palpations: Abdomen is soft. There is no mass. Tenderness: There is no abdominal tenderness. There is no right CVA tenderness, left CVA tenderness, guarding or rebound. Hernia: No hernia is present. Comments: +suprapubic pressure and pain Musculoskeletal: General: No swelling, tenderness, deformity or signs of injury. Normal range of motion. Cervical back: Normal range of motion. No rigidity or tenderness. Right lower leg: No edema. Left lower leg: No edema. Skin: General: Skin is warm and dry. Capillary Refill: Capillary refill takes less than 2 seconds. Coloration: Skin is not jaundiced or pale. Findings: No lesion or rash. Neurological: General: No focal deficit present. Mental Status: She is alert and oriented to person, place, and time. Motor: No weakness. Psychiatric: Mood and Affect: Mood normal. Behavior: Behavior normal. Thought Content: Thought content normal. Judgment: Judgment normal. Assessment and Plan ASSESSMENT/PLAN: 1. Gross hematuria - ICD9: 599.71, ICD10: R31.0 X 1 day Differentials include, cystitis, renal calculus, pylo - UA positive for ubaldo esterase, hematuria, proteinuria, and nitrates - Send urine for culture Given history of renal stones with unknown intervention and concerns for obstruction or EDITH Will obtain lab work CBC and BMP obtained today, stat. Will call with results. Declines US - Begin treatment with cephalexin - Patient education for prevention given Will follow up with PCP Jennifer Ballard TEACHING PROVIDER (Physician/PA/ENGRAVER) NOTE OF PERSONAL INVOLVEMENT IN CARE: I have personally seen and examined the patient and performed the medical decision-making components. I have reviewed the Advanced Practice Registered Nurse (ENGRAVER) Student's documentation and verified the findings in the note as written. Any additions or changes are noted in bold/italics. Signature: Flor Botello Date: 10/18/2021 Time: 3:20 PM documented in this encounter [facility] 08-19-2021 Miscellaneous Notes Patient notified and patient has surgery scheduled next week with . Leora Johnson LPN Please let patient know that her urine did not grow any bacteria. She does have blood in her urine which is probably from the uretal stones. I recommend seeing urology for this. I am assuming she was scheduled with one after her recent hospitalization. If not I am more than happy to place a consult for this. Thank you Angélica Morataya APRN.MT documented in this encounter [facility] 08-18-2021 Miscellaneous Notes Patient notified. Verbalized understanding. Please let patient know since she has a stent, Although her urine did not grow much, She needs to be on the macrobid that I sent to her. Regards, Jessica Clark MD Pt states she does not want to be on an antibiotic with horrific side effects. She lives by herself and one of the side effects were fainting, and she can't faint and be on her own. She states, I have been on other antibiotics before, can't she put me on one of those for this.. Please call and advise. Please clarify if she does not want levaquin or does not want any abx And yes a follow up visit is important Celeste MEJIASrate examiner from [facility] calls to report that patient was seen at [facility] on 08/12/2021. While in the hospital patient had kidney stones and a stent was placed. Patient was started on Levaquin due to stent placement, HCTZ, Norvasc, and Losartan. Patient had filled all of the pills at the pharmacy, but has refused to take the medication. Patient states that she lives at home by herself and she refuses to take any medication that will give her side effects. Celeste asking if an follow up appointment can be scheduled so that patient can follow up with provider and get guidance. Called and spoke with patient. Patient asking if there is any other antibiotic that she can be put on instead because she is not taking that antibiotic due to side effects. Advised patient that she needed to set up a hospital follow up visit, so that she can go over medications prescribed. Patient agreeable. Patient set up appointment with provider on 08/17/2021. Please review and advise, Shital Encarnacion RN documented in this encounter [facility] 08-17-2021 History of Present illness Narrative Reason for Visit Patient presents with: Established Patient: hospital follow up 08/12/21 stent placement for kidney stones Gayle Cho is a 71 year old female who presents here today for Above Complaints. Health Maintenance COVID-19 VACCINE(1) HEPATITIS C SCREENING BP CONTROLLED (<130/80) DTAP,TDAP,TD(1 - Tdap) MAMMOGRAM COLORECTAL CANCER SCREENING SHINGRIX VACCINE(1 of 2) LUNG CANCER SCREENING BONE DENSITY DEPRESSION SCREENING INFLUENZA(1) ADVANCE DIRECTIVE DISCUSSION HPI This was a very challenging visit. Patient is sad and obviously upset at the of her , her loneliness, lack of social support, she states that she has nobody living with her to take care of her now that she is sick. Her recent hospitalization. And she was not very happy on the offset. She was discharged from [facility] on July 23. She was admitted for back pain, ureteral stones and UTI. She was in for 2 or 3 days and was treated with ceftriaxone,. The first day she was in she did have fever and chills but with the first dose of ceftriaxone that subsided. She was asked to stay for 3 days but left because she thinks she did not need to be there. I do not have her culture result. She was discharged on Levaquin but she did not want to take the medication because it noted that she can have dizziness from it. It has been 5 days that she is without any antibiotics and she does not complain of having a fever or chills today. In the hospital her blood pressure was very uncontrolled and this has been a chronic problem with her BP of 200 above systolic. She also gets this way when she is not on Xanax so they did give her the Xanax and her blood pressure did come down better in the hospital. When she came in because of her chronic noncompliance I asked the, what she would like me to do for her because she has not adhered to our recommendations in the past. She said you are the doctor. I told her that even if I was the doctor she only does what she is convinced to do when it is her body and she has the right to do what she would like to do with it. To that she got very upset with me and with a very angry loud voice and pointing her index finger at me she told me you do not live in my body, you do not know my body at all, you know nothing about me,. I had a bad reaction to anesthetic medicine in the past and I had a bad reaction to some other medication in the past. I am not not going to be at home on my own and be dizzy with this medication and not have anybody know or be able to call 911. I told her that with her systolic pressure being in the 215 range but she reported to us when she came in at home she would probably have a heart attack or stroke even before she has any side effects to medications. She was not very happy with that . I also told her that she is not having the full information about medications to be making decisions and she is making decisions that are probably not considered the best for her. I also told her in no uncertain terms that she has not even tried this new antibiotic and the fear of what may happen is what is keeping her from doing it but she could actually be doing a lot of harm to herself because she was just put on a stent and she was not completed her antibiotic course in the hospital she wanted to leave early from the hospital so she only got a couple days of antibiotics. When I was very firm with her she quieted down and I asked her what does she want me to do for her again and we agreed about treating her UTI. She did admit she is taking the medicines for blood pressure as she is supposed to but her blood pressure was really high today. She is dizzy on the dialysis and she was not happy. As I was making a plan to order her urine test she complained about being dizzy and said that she is having to come here and accused me of not caring for her enough. She said I cannot talk to anyone I do not have anyone and I have to come here to talk to somebody who does not really care about me She also said this is the last time I will be coming here for a visit because I did not like what you told me earlier. I told her that I do not like to be accused of not caring for someone and if this was the last when she was going to come in that I would take care of her urinary concerns at this time and there was no need for us to have further more contact. We both agreed that there was no point of this doctor-patient relationship because I do not think I can do much to help her change her views on medications and she does not seem to respect any of our recommendations. She implied many times it is her body and because she lives in it nobody can tell her what to do and she does not even want to try new medications because she had past experiences that were not good. I did tell her she was counterproductive in her thinking and that she is choosing to use her have knowledge to make decisions which may not be the best for her. No problem-specific Assessment & Plan notes found for this encounter. PAST MEDICAL HISTORY Diagnosis Date Bowel disease Calculus of kidney Dyslipidemia Fracture Generalized osteoarthrosis, unspecified site Hypertension Hypothyroidism 02/20/2012 Mitral valve disorders(424.0) Myalgia and myositis, unspecified Non-ST elevation myocardial infarction (NSTEMI), subendocardial infarction, initial episode of care ([facility]) 02/20/2012 Type II or unspecified type diabetes mellitus without mention of complication, not stated as uncontrolled Unspecified hypothyroidism PAST SURGICAL HISTORY Procedure Laterality Date DILATION & CURETTAGE DX&/THER NONOBSTETRIC Dilation & curettage PRQ CARD STENT/ATH/ANGIO 2011 x 2 TONSILLECTOMY PRIMARY/SECONDARY <AGE 10 Tonsillectomy No family history on file. Social History Tobacco Use Smoking status: Current Every Day Smoker Packs/day: 1.00 Years: 45.00 Pack years: 45.00 Types: Cigarettes Smokeless tobacco: Never Used Substance Use Topics Alcohol use: No Drug use: No Past medical history, appointments, medications, allergies reviewed. Pertinent Lab/Diagnostic Studies are reviewed and discussed today Current Outpatient Medications: losartan (COZAAR) 25 mg tablet cholecalciferol (VITAMIN D) 1,000 unit tab tablet dexAMETHasone (DECADRON) 6 mg tablet Dextromethorphan-guaiFENesin (TUSSIN DM) 10-100 mg/5 mL liquid levothyroxine (LEVOXYL) 100 mcg tablet pravastatin (PRAVACHOL) 40 mg tablet carvedilol (COREG) 25 mg tablet albuterol HFA (PROAIR HFA) 90 mcg/actuation inhaler nitroglycerin sublingual (NITROQUICK) 0.4 mg SL tablet CPAP aspirin, enteric coated (ECOTRIN LOW STRENGTH) 81 mg EC tablet Review of Systems CONSTITUTIONAL: No fevers, chills night sweats, unintended weight loss CARDIOVASCULAR: No chest pain, dyspnea, palpitations, orthopnea, PND, ankle edema. PULM: No dyspnea, unexplained cough. GI: No dysphagia/odynophagia, problematic reflux, constipation, diarrhea, changes in stool habits, hematochezia, melena. : No new urinary complaints, including dysuria, gross hematuria or pyuria. NEURO: No new balance problems, peripheral weakness/paresthesias or numbness of concern. Physical Exam BP 200/84 (BP Site: Right Arm, BP Position: Sitting, BP Cuff Size: Large Adult) Pulse 74 Temp 36.6 C (97.8 F) Resp 16 Ht 162.6 cm (5' 4) Wt 67.1 kg (148 lb) SpO2 97% BMI 25.40 kg/m General appearance: Well appearing, alert, in no acute distress, well nourished. Skin: Skin color, texture, turgor normal, no suspicious rashes or lesions Head: Normocephalic, no masses, lesions, tenderness or abnormalities Eyes: Anicteric sclera. Pupils are equally round and reactive to light. Extraocular movements are intact. Lungs: Lungs clear to auscultation. No wheezing, rhonchi, rales Heart: RRR without murmur, gallop, or rubs. Extremities: No deformities, edema, skin discoloration, clubbing or cyanosis. Good capillary refill. ASSESSMENT/PLAN: 1. Urinary tract infection without hematuria, site unspecified - ICD9: 599.0, ICD10: N39.0 (primary diagnosis) We will treat her uti, if her labs are positive - URINALYSIS, WITH MICROSCOPIC - URINE CULTURE 2. Urinary tract stones - ICD9: 592.9, ICD10: N20.9 - LEVOFLOXACIN 500 MG TABLET 3. Essential hypertension - ICD9: 401.9, ICD10: I10 Advised her to take all the medication she was given - AMLODIPINE 5 MG TABLET - HYDROCHLOROTHIAZIDE 12.5 MG CAPSULE Jessica Clark MD documented in this encounter [facility] 08-04-2021 History of Present illness Narrative Radiology Service Progress Note PATIENT NAME: Gayle Cho DATE OF SERVICE: August 04, 2021 TIME: 9:58 AM PATIENT IDENTITY VERIFICATION COMPLETED USING TWO (2) IDENTIFIERS: Name and Date of confirmed by patient verbally. FALL SCREENING: Has the patient had 2 falls in the last year or 1 fall with injury or currently using an Ambulatory Assistive Device (Walker, Cane, Wheelchair, Crutches, etc.)? No PATIENT GENDER DATA: Female. status: : No status: NO. PATIENT RELEVANT IMPLANT DATA REVIEWED: Yes RADIOLOGY DEPARTMENT: General X-ray: Exam(s) Completed: Lower Extremity X-Ray(s): Toes, Left PERIPHERAL IV DATA: Not applicable SIGNED BY: RT Aneta(R) August 04, 2021 9:58 AM documented in this encounter [facility] 09-13-2020 History of Present illness Narrative Radiology Service Progress Note PATIENT NAME: Gayle Cho DATE OF SERVICE: September 13, 2020 TIME: 1:48 PM PATIENT IDENTITY VERIFICATION COMPLETED USING TWO (2) IDENTIFIERS: Name and Date of confirmed by patient verbally. FALL SCREENING: Has the patient had 2 falls in the last year or 1 fall with injury or currently using an Ambulatory Assistive Device (Walker, Cane, Wheelchair, Crutches, etc.)? No PATIENT GENDER DATA: Female. status: : No status: NO. PATIENT RELEVANT IMPLANT DATA REVIEWED: Not Applicable RADIOLOGY DEPARTMENT: General X-ray: Exam(s) Completed: Pelvis X-Ray: Pelvis with Hip Right PERIPHERAL IV DATA: Not applicable SIGNED BY: RT Abdiel September 13, 2020 1:48 PM documented in this encounter [facility] 02-04-2019 History of Past i llness Narrative Problem Noted Date Resolved Date Tobacco abuse counseling 02/04/2019 022 Bronchitis 02/04/2019 07/28/2021 SUMMARY 04/27/2016 07/28/2021 Overview: 66 year old female with PMHx of HTN, HLD, DM2, hypothyroid and CAD c/b prior NSTEMI s/p two rounds of PCI (2011 BMS to OM1, MARIAELENA to OM1 and to pLCx in 2012) Presented to the ED with worsening chest pressure and L arm numbness. Reports for last several months had intermittent chest pressure and heaviness. Pressure has now become more frequent and constant. Cardiology consulted in the ED and believe symptoms are most likely due to her unstable blood pressure. Cardiology reports a medicine admit would be best for patient at this time. Cardiac enzymes and ekg unremarkable BP initially Elevated to 218/101 and decreased to 187/76 after Nitro. Admitted to medicine for further management. Hypertensive urgency 04/27/2016 07/28/2021 Overview: - Highest measured 230/97 - Patient reports noticed more frequent episodes of chest pain with poor blood pressure control Plan: - Restarted home regimen starting from losartan and coreg from AM ( HR around 55/min now) - Monitoring of blood pressure and adjust accordingly Type II or unspecified type diabetes mellitus without mention of complication, not stated as uncontrolled 02/20/2012 Overview: History: NIDDM, pt not on any home medications HbA1c 6.0 Assessment: NIDDM Plan: SSI documented as of this encounter (statuses as of 08/17/2021) [facility] History of Past illness Narrative* Problem Noted Date Resolved Date Tobacco abuse counseling 02/04/2019 022 Bronchitis 02/04/2019 07/28/2021 SUMMARY 04/27/2016 07/28/2021 Overview: 66 year old female with PMHx of HTN, HLD, DM2, hypothyroid and CAD c/b prior NSTEMI s/p two rounds of PCI (2011 BMS to OM1, MARIAELENA to OM1 and to pLCx in 2012) Presented to the ED with worsening chest pressure and L arm numbness. Reports for last several months had intermittent chest pressure and heaviness. Pressure has now become more frequent and constant. Cardiology consulted in the ED and believe symptoms are most likely due to her unstable blood pressure. Cardiology reports a medicine admit would be best for patient at this time. Cardiac enzymes and ekg unremarkable BP initially Elevated to 218/101 and decreased to 187/76 after Nitro. Admitted to medicine for further management. Hypertensive urgency 04/27/2016 07/28/2021 Overview: - Highest measured 230/97 - Patient reports noticed more frequent episodes of chest pain with poor blood pressure control Plan: - Restarted home regimen starting from losartan and coreg from AM ( HR around 55/min now) - Monitoring of blood pressure and adjust accordingly Type II or unspecified type diabetes mellitus without mention of complication, not stated as uncontrolled 02/20/2012 Overview: History: NIDDM, pt not on any home medications HbA1c 6.0 Assessment: NIDDM Plan: SSI documented as of this encounter (statuses as of 08/18/2021) [facility] History of Past illness Narrative* Problem Noted Date Resolved Date Tobacco abuse counseling 02/04/2019 022 Bronchitis 02/04/2019 07/28/2021 SUMMARY 04/27/2016 07/28/2021 Overview: 66 year old female with PMHx of HTN, HLD, DM2, hypothyroid and CAD c/b prior NSTEMI s/p two rounds of PCI (2011 BMS to OM1, MARIAELENA to OM1 and to pLCx in 2012) Presented to the ED with worsening chest pressure and L arm numbness. Reports for last several months had intermittent chest pressure and heaviness. Pressure has now become more frequent and constant. Cardiology consulted in the ED and believe symptoms are most likely due to her unstable blood pressure. Cardiology reports a medicine admit would be best for patient at this time. Cardiac enzymes and ekg unremarkable BP initially Elevated to 218/101 and decreased to 187/76 after Nitro. Admitted to medicine for further management. Hypertensive urgency 04/27/2016 07/28/2021 Overview: - Highest measured 230/97 - Patient reports noticed more frequent episodes of chest pain with poor blood pressure control Plan: - Restarted home regimen starting from losartan and coreg from AM ( HR around 55/min now) - Monitoring of blood pressure and adjust accordingly Type II or unspecified type diabetes mellitus without mention of complication, not stated as uncontrolled 02/20/2012 Overview: History: NIDDM, pt not on any home medications HbA1c 6.0 Assessment: NIDDM Plan: SSI documented as of this encounter (statuses as of 08/19/2021) [facility] History of Past illness Narrative* Problem Noted Date Resolved Date Tobacco abuse counseling 02/04/2019 022 Bronchitis 02/04/2019 07/28/2021 SUMMARY 04/27/2016 07/28/2021 Overview: 66 year old female with PMHx of HTN, HLD, DM2, hypothyroid and CAD c/b prior NSTEMI s/p two rounds of PCI (2012 BMS to OM1, MARIAELENA to OM1 and to pLCx in 2012) Presented to the ED with worsening chest pressure and L arm numbness. Reports for last several months had intermittent chest pressure and heaviness. Pressure has now become more frequent and constant. Cardiology consulted in the ED and believe symptoms are most likely due to her unstable blood pressure. Cardiology reports a medicine admit would be best for patient at this time. Cardiac enzymes and ekg unremarkable BP initially Elevated to 218/101 and decreased to 187/76 after Nitro. Admitted to medicine for further management. Hypertensive urgency 04/27/2016 07/28/2021 Overview: - Highest measured 230/97 - Patient reports noticed more frequent episodes of chest pain with poor blood pressure control Plan: - Restarted home regimen starting from losartan and coreg from AM ( HR around 55/min now) - Monitoring of blood pressure and adjust accordingly Type II or unspecified type diabetes mellitus without mention of complication, not stated as uncontrolled 02/20/2012 Overview: History: NIDDM, pt not on any home medications HbA1c 6.0 Assessment: NIDDM Plan: SSI documented as of this encounter (statuses as of 10/18/2021) [facility] History of Past illness Narrative* Problem Noted Date Resolved Date Tobacco abuse counseling 02/04/2019 022 Bronchitis 02/04/2019 07/28/2021 SUMMARY 04/27/2016 07/28/2021 Overview: 66 year old female with PMHx of HTN, HLD, DM2, hypothyroid and CAD c/b prior NSTEMI s/p two rounds of PCI (2012 BMS to OM1, MARIAELENA to OM1 and to pLCx in 2012) Presented to the ED with worsening chest pressure and L arm numbness. Reports for last several months had intermittent chest pressure and heaviness. Pressure has now become more frequent and constant. Cardiology consulted in the ED and believe symptoms are most likely due to her unstable blood pressure. Cardiology reports a medicine admit would be best for patient at this time. Cardiac enzymes and ekg unremarkable BP initially Elevated to 218/101 and decreased to 187/76 after Nitro. Admitted to medicine for further management. Hypertensive urgency 04/27/2016 07/28/2021 Overview: - Highest measured 230/97 - Patient reports noticed more frequent episodes of chest pain with poor blood pressure control Plan: - Restarted home regimen starting from losartan and coreg from AM ( HR around 55/min now) - Monitoring of blood pressure and adjust accordingly Type II or unspecified type diabetes mellitus without mention of complication, not stated as uncontrolled 02/20/2012 Overview: History: NIDDM, pt not on any home medications HbA1c 6.0 Assessment: NIDDM Plan: SSI documented as of this encounter (statuses as of 10/18/2021) [facility]09-17-2019 History of Past illness Narrative* Problem Noted Date Resolved Date Tobacco abuse counseling 02/04/2019 022 Bronchitis 02/04/2019 07/28/2021 SUMMARY 04/27/2016 07/28/2021 Overview: 66 year old female with PMHx of HTN, HLD, DM2, hypothyroid and CAD c/b prior NSTEMI s/p two rounds of PCI (2011 BMS to OM1, MARIAELENA to OM1 and to pLCx in 2012) Presented to the ED with worsening chest pressure and L arm numbness. Reports for last several months had intermittent chest pressure and heaviness. Pressure has now become more frequent and constant. Cardiology consulted in the ED and believe symptoms are most likely due to her unstable blood pressure. Cardiology reports a medicine admit would be best for patient at this time. Cardiac enzymes and ekg unremarkable BP initially Elevated to 218/101 and decreased to 187/76 after Nitro. Admitted to medicine for further management. Hypertensive urgency 04/27/2016 07/28/2021 Overview: - Highest measured 230/97 - Patient reports noticed more frequent episodes of chest pain with poor blood pressure control Plan: - Restarted home regimen starting from losartan and coreg from AM ( HR around 55/min now) - Monitoring of blood pressure and adjust accordingly Type II or unspecified type diabetes mellitus without mention of complication, not stated as uncontrolled 02/20/2012 Overview: History: NIDDM, pt not on any home medications HbA1c 6.0 Assessment: NIDDM Plan: SSI documented as of this encounter (statuses as of 10/19/2021) [facility]09-17-2019 History of Past illness Narrative* Problem Noted Date Resolved Date Tobacco abuse counseling 02/04/2019 022 Bronchitis 02/04/2019 07/28/2021 SUMMARY 04/27/2016 07/28/2021 Overview: 66 year old female with PMHx of HTN, HLD, DM2, hypothyroid and CAD c/b prior NSTEMI s/p two rounds of PCI (2011 BMS to OM1, MARIAELENA to OM1 and to pLCx in 2012) Presented to the ED with worsening chest pressure and L arm numbness. Reports for last several months had intermittent chest pressure and heaviness. Pressure has now become more frequent and constant. Cardiology consulted in the ED and believe symptoms are most likely due to her unstable blood pressure. Cardiology reports a medicine admit would be best for patient at this time. Cardiac enzymes and ekg unremarkable BP initially Elevated to 218/101 and decreased to 187/76 after Nitro. Admitted to medicine for further management. Hypertensive urgency 04/27/2016 07/28/2021 Overview: - Highest measured 230/97 - Patient reports noticed more frequent episodes of chest pain with poor blood pressure control Plan: - Restarted home regimen starting from losartan and coreg from AM ( HR around 55/min now) - Monitoring of blood pressure and adjust accordingly Type II or unspecified type diabetes mellitus without mention of complication, not stated as uncontrolled 02/20/2012 Overview: History: NIDDM, pt not on any home medications HbA1c 6.0 Assessment: NIDDM Plan: SSI documented as of this encounter (statuses as of 10/21/2021) [facility]09-17-2019 History of Past illness Narrative* Problem Noted Date Resolved Date Tobacco abuse counseling 02/04/2019 022 Bronchitis 02/04/2019 07/28/2021 SUMMARY 04/27/2016 07/28/2021 Overview: 66 year old female with PMHx of HTN, HLD, DM2, hypothyroid and CAD c/b prior NSTEMI s/p two rounds of PCI (2011 BMS to OM1, MARIAELENA to OM1 and to pLCx in 2012) Presented to the ED with worsening chest pressure and L arm numbness. Reports for last several months had intermittent chest pressure and heaviness. Pressure has now become more frequent and constant. Cardiology consulted in the ED and believe symptoms are most likely due to her unstable blood pressure. Cardiology reports a medicine admit would be best for patient at this time. Cardiac enzymes and ekg unremarkable BP initially Elevated to 218/101 and decreased to 187/76 after Nitro. Admitted to medicine for further management. Hypertensive urgency 04/27/2016 07/28/2021 Overview: - Highest measured 230/97 - Patient reports noticed more frequent episodes of chest pain with poor blood pressure control Plan: - Restarted home regimen starting from losartan and coreg from AM ( HR around 55/min now) - Monitoring of blood pressure and adjust accordingly Type II or unspecified type diabetes mellitus without mention of complication, not stated as uncontrolled 02/20/2012 Overview: History: NIDDM, pt not on any home medications HbA1c 6.0 Assessment: NIDDM Plan: SSI documented as of this encounter (statuses as of 12/09/2021) [facility]09-17-2019 History of Past illness Narrative* Problem Noted Date Resolved Date Tobacco abuse counseling 02/04/2019 022 Bronchitis 02/04/2019 07/28/2021 SUMMARY 04/27/2016 07/28/2021 Overview: 66 year old female with PMHx of HTN, HLD, DM2, hypothyroid and CAD c/b prior NSTEMI s/p two rounds of PCI (2011 BMS to OM1, MARIAELENA to OM1 and to pLCx in 2012) Presented to the ED with worsening chest pressure and L arm numbness. Reports for last several months had intermittent chest pressure and heaviness. Pressure has now become more frequent and constant. Cardiology consulted in the ED and believe symptoms are most likely due to her unstable blood pressure. Cardiology reports a medicine admit would be best for patient at this time. Cardiac enzymes and ekg unremarkable BP initially Elevated to 218/101 and decreased to 187/76 after Nitro. Admitted to medicine for further management. Hypertensive urgency 04/27/2016 07/28/2021 Overview: - Highest measured 230/97 - Patient reports noticed more frequent episodes of chest pain with poor blood pressure control Plan: - Restarted home regimen starting from losartan and coreg from AM ( HR around 55/min now) - Monitoring of blood pressure and adjust accordingly Type II or unspecified type diabetes mellitus without mention of complication, not stated as uncontrolled 02/20/2012 Overview: History: NIDDM, pt not on any home medications HbA1c 6.0 Assessment: NIDDM Plan: SSI documented as of this encounter (statuses as of 02/24/2022) [facility]09-17-2019 History of Past illness Narrative* Problem Noted Date Resolved Date Tobacco abuse counseling 02/04/2019 022 Bronchitis 02/04/2019 07/28/2021 SUMMARY 04/27/2016 07/28/2021 Overview: 66 year old female with PMHx of HTN, HLD, DM2, hypothyroid and CAD c/b prior NSTEMI s/p two rounds of PCI (2011 BMS to OM1, MARIAELENA to OM1 and to pLCx in 2012) Presented to the ED with worsening chest pressure and L arm numbness. Reports for last several months had intermittent chest pressure and heaviness. Pressure has now become more frequent and constant. Cardiology consulted in the ED and believe symptoms are most likely due to her unstable blood pressure. Cardiology reports a medicine admit would be best for patient at this time. Cardiac enzymes and ekg unremarkable BP initially Elevated to 218/101 and decreased to 187/76 after Nitro. Admitted to medicine for further management. Hypertensive urgency 04/27/2016 07/28/2021 Overview: - Highest measured 230/97 - Patient reports noticed more frequent episodes of chest pain with poor blood pressure control Plan: - Restarted home regimen starting from losartan and coreg from AM ( HR around 55/min now) - Monitoring of blood pressure and adjust accordingly Type II or unspecified type diabetes mellitus without mention of complication, not stated as uncontrolled 02/20/2012 Overview: History: NIDDM, pt not on any home medications HbA1c 6.0 Assessment: NIDDM Plan: SSI documented as of this encounter (statuses as of 03/16/2022) [facility]09-17-2019 History of Past illness Narrative* Problem Noted Date Resolved Date Tobacco abuse counseling 02/04/2019 022 Bronchitis 02/04/2019 07/28/2021 SUMMARY 04/27/2016 07/28/2021 Overview: 66 year old female with PMHx of HTN, HLD, DM2, hypothyroid and CAD c/b prior NSTEMI s/p two rounds of PCI (2011 BMS to OM1, MARIAELENA to OM1 and to pLCx in 2012) Presented to the ED with worsening chest pressure and L arm numbness. Reports for last several months had intermittent chest pressure and heaviness. Pressure has now become more frequent and constant. Cardiology consulted in the ED and believe symptoms are most likely due to her unstable blood pressure. Cardiology reports a medicine admit would be best for patient at this time. Cardiac enzymes and ekg unremarkable BP initially Elevated to 218/101 and decreased to 187/76 after Nitro. Admitted to medicine for further management. Hypertensive urgency 04/27/2016 07/28/2021 Overview: - Highest measured 230/97 - Patient reports noticed more frequent episodes of chest pain with poor blood pressure control Plan: - Restarted home regimen starting from losartan and coreg from AM ( HR around 55/min now) - Monitoring of blood pressure and adjust accordingly Type II or unspecified type diabetes mellitus without mention of complication, not stated as uncontrolled 02/20/2012 Overview: History: NIDDM, pt not on any home medications HbA1c 6.0 Assessment: NIDDM Plan: SSI documented as of this encounter (statuses as of 03/17/2022) [facility]09-17-2019 History of Past illness Narrative* Problem Noted Date Resolved Date Tobacco abuse counseling 02/04/2019 022 Bronchitis 02/04/2019 07/28/2021 SUMMARY 04/27/2016 07/28/2021 Overview: 66 year old female with PMHx of HTN, HLD, DM2, hypothyroid and CAD c/b prior NSTEMI s/p two rounds of PCI (2011 BMS to OM1, MARIAELENA to OM1 and to pLCx in 2012) Presented to the ED with worsening chest pressure and L arm numbness. Reports for last several months had intermittent chest pressure and heaviness. Pressure has now become more frequent and constant. Cardiology consulted in the ED and believe symptoms are most likely due to her unstable blood pressure. Cardiology reports a medicine admit would be best for patient at this time. Cardiac enzymes and ekg unremarkable BP initially Elevated to 218/101 and decreased to 187/76 after Nitro. Admitted to medicine for further management. Hypertensive urgency 04/27/2016 07/28/2021 Overview: - Highest measured 230/97 - Patient reports noticed more frequent episodes of chest pain with poor blood pressure control Plan: - Restarted home regimen starting from losartan and coreg from AM ( HR around 55/min now) - Monitoring of blood pressure and adjust accordingly Type II or unspecified type diabetes mellitus without mention of complication, not stated as uncontrolled 02/20/2012 Overview: History: NIDDM, pt not on any home medications HbA1c 6.0 Assessment: NIDDM Plan: SSI documented as of this encounter (statuses as of 03/23/2022) [facility]09-17-2019 History of Past illness Narrative* Problem Noted Date Resolved Date Tobacco abuse counseling 02/04/2019 022 Bronchitis 02/04/2019 07/28/2021 SUMMARY 04/27/2016 07/28/2021 Overview: 66 year old female with PMHx of HTN, HLD, DM2, hypothyroid and CAD c/b prior NSTEMI s/p two rounds of PCI (2011 BMS to OM1, MARIAELENA to OM1 and to pLCx in 2012) Presented to the ED with worsening chest pressure and L arm numbness. Reports for last several months had intermittent chest pressure and heaviness. Pressure has now become more frequent and constant. Cardiology consulted in the ED and believe symptoms are most likely due to her unstable blood pressure. Cardiology reports a medicine admit would be best for patient at this time. Cardiac enzymes and ekg unremarkable BP initially Elevated to 218/101 and decreased to 187/76 after Nitro. Admitted to medicine for further management. Hypertensive urgency 04/27/2016 07/28/2021 Overview: - Highest measured 230/97 - Patient reports noticed more frequent episodes of chest pain with poor blood pressure control Plan: - Restarted home regimen starting from losartan and coreg from AM ( HR around 55/min now) - Monitoring of blood pressure and adjust accordingly Type II or unspecified type diabetes mellitus without mention of complication, not stated as uncontrolled 02/20/2012 Overview: History: NIDDM, pt not on any home medications HbA1c 6.0 Assessment: NIDDM Plan: SSI documented as of this encounter (statuses as of 03/29/2022) [facility]09-17-2019 History of Past illness Narrative* Problem Noted Date Resolved Date Tobacco abuse counseling 02/04/2019 022 Bronchitis 02/04/2019 07/28/2021 SUMMARY 04/27/2016 07/28/2021 Overview: 66 year old female with PMHx of HTN, HLD, DM2, hypothyroid and CAD c/b prior NSTEMI s/p two rounds of PCI (2011 BMS to OM1, MARIAELENA to OM1 and to pLCx in 2012) Presented to the ED with worsening chest pressure and L arm numbness. Reports for last several months had intermittent chest pressure and heaviness. Pressure has now become more frequent and constant. Cardiology consulted in the ED and believe symptoms are most likely due to her unstable blood pressure. Cardiology reports a medicine admit would be best for patient at this time. Cardiac enzymes and ekg unremarkable BP initially Elevated to 218/101 and decreased to 187/76 after Nitro. Admitted to medicine for further management. Hypertensive urgency 04/27/2016 07/28/2021 Overview: - Highest measured 230/97 - Patient reports noticed more frequent episodes of chest pain with poor blood pressure control Plan: - Restarted home regimen starting from losartan and coreg from AM ( HR around 55/min now) - Monitoring of blood pressure and adjust accordingly Type II or unspecified type diabetes mellitus without mention of complication, not stated as uncontrolled 02/20/2012 Overview: History: NIDDM, pt not on any home medications HbA1c 6.0 Assessment: NIDDM Plan: SSI documented as of this encounter (statuses as of 03/31/2022) [facility]09-17-2019 History of Past illness Narrative* Problem Noted Date Resolved Date Tobacco abuse counseling 02/04/2019 022 Bronchitis 02/04/2019 07/28/2021 SUMMARY 04/27/2016 07/28/2021 Overview: 66 year old female with PMHx of HTN, HLD, DM2, hypothyroid and CAD c/b prior NSTEMI s/p two rounds of PCI (2011 BMS to OM1, MRAIAELENA to OM1 and to pLCx in 2012) Presented to the ED with worsening chest pressure and L arm numbness. Reports for last several months had intermittent chest pressure and heaviness. Pressure has now become more frequent and constant. Cardiology consulted in the ED and believe symptoms are most likely due to her unstable blood pressure. Cardiology reports a medicine admit would be best for patient at this time. Cardiac enzymes and ekg unremarkable BP initially Elevated to 218/101 and decreased to 187/76 after Nitro. Admitted to medicine for further management. Hypertensive urgency 04/27/2016 07/28/2021 Overview: - Highest measured 230/97 - Patient reports noticed more frequent episodes of chest pain with poor blood pressure control Plan: - Restarted home regimen starting from losartan and coreg from AM ( HR around 55/min now) - Monitoring of blood pressure and adjust accordingly Type II or unspecified type diabetes mellitus without mention of complication, not stated as uncontrolled 02/20/2012 Overview: History: NIDDM, pt not on any home medications HbA1c 6.0 Assessment: NIDDM Plan: SSI documented as of this encounter (statuses as of 03/31/2022) [facility]09-17-2019 History of Past illness Narrative* Problem Noted Date Resolved Date Tobacco abuse counseling 02/04/2019 022 Bronchitis 02/04/2019 07/28/2021 SUMMARY 04/27/2016 07/28/2021 Overview: 66 year old female with PMHx of HTN, HLD, DM2, hypothyroid and CAD c/b prior NSTEMI s/p two rounds of PCI (2011 BMS to OM1, MARIAELENA to OM1 and to pLCx in 2012) Presented to the ED with worsening chest pressure and L arm numbness. Reports for last several months had intermittent chest pressure and heaviness. Pressure has now become more frequent and constant. Cardiology consulted in the ED and believe symptoms are most likely due to her unstable blood pressure. Cardiology reports a medicine admit would be best for patient at this time. Cardiac enzymes and ekg unremarkable BP initially Elevated to 218/101 and decreased to 187/76 after Nitro. Admitted to medicine for further management. Hypertensive urgency 04/27/2016 07/28/2021 Overview: - Highest measured 230/97 - Patient reports noticed more frequent episodes of chest pain with poor blood pressure control Plan: - Restarted home regimen starting from losartan and coreg from AM ( HR around 55/min now) - Monitoring of blood pressure and adjust accordingly Type II or unspecified type diabetes mellitus without mention of complication, not stated as uncontrolled 02/20/2012 Overview: History: NIDDM, pt not on any home medications HbA1c 6.0 Assessment: NIDDM Plan: SSI documented as of this encounter (statuses as of 04/04/2022) [facility]09-17-2019 History of Past illness Narrative* Problem Noted Date Resolved Date Tobacco abuse counseling 02/04/2019 022 Bronchitis 02/04/2019 07/28/2021 SUMMARY 04/27/2016 07/28/2021 Overview: 66 year old female with PMHx of HTN, HLD, DM2, hypothyroid and CAD c/b prior NSTEMI s/p two rounds of PCI (2011 BMS to OM1, MARIAELENA to OM1 and to pLCx in 2012) Presented to the ED with worsening chest pressure and L arm numbness. Reports for last several months had intermittent chest pressure and heaviness. Pressure has now become more frequent and constant. Cardiology consulted in the ED and believe symptoms are most likely due to her unstable blood pressure. Cardiology reports a medicine admit would be best for patient at this time. Cardiac enzymes and ekg unremarkable BP initially Elevated to 218/101 and decreased to 187/76 after Nitro. Admitted to medicine for further management. Hypertensive urgency 04/27/2016 07/28/2021 Overview: - Highest measured 230/97 - Patient reports noticed more frequent episodes of chest pain with poor blood pressure control Plan: - Restarted home regimen starting from losartan and coreg from AM ( HR around 55/min now) - Monitoring of blood pressure and adjust accordingly Type II or unspecified type diabetes mellitus without mention of complication, not stated as uncontrolled 02/20/2012 Overview: History: NIDDM, pt not on any home medications HbA1c 6.0 Assessment: NIDDM Plan: SSI documented as of this encounter (statuses as of 04/10/2022) [facility]09-17[facility]2019 History of Past illness Narrative* Problem Noted Date Resolved Date Tobacco abuse counseling 02/04/2019 022 Bronchitis 02/04/2019 07/28/2021 SUMMARY 04/27/2016 07/28/2021 Overview: 66 year old female with PMHx of HTN, HLD, DM2, hypothyroid and CAD c/b prior NSTEMI s/p two rounds of PCI (2011 BMS to OM1, MARIAELENA to OM1 and to pLCx in 2012) Presented to the ED with worsening chest pressure and L arm numbness. Reports for last several months had intermittent chest pressure and heaviness. Pressure has now become more frequent and constant. Cardiology consulted in the ED and believe symptoms are most likely due to her unstable blood pressure. Cardiology reports a medicine admit would be best for patient at this time. Cardiac enzymes and ekg unremarkable BP initially Elevated to 218/101 and decreased to 187/76 after Nitro. Admitted to medicine for further management. Hypertensive urgency 04/27/2016 07/28/2021 Overview: - Highest measured 230/97 - Patient reports noticed more frequent episodes of chest pain with poor blood pressure control Plan: - Restarted home regimen starting from losartan and coreg from AM ( HR around 55/min now) - Monitoring of blood pressure and adjust accordingly Type II or unspecified type diabetes mellitus without mention of complication, not stated as uncontrolled 02/20/2012 Overview: History: NIDDM, pt not on any home medications HbA1c 6.0 Assessment: NIDDM Plan: SSI documented as of this encounter (statuses as of 06/16/2022) [facility]09-[facility]2019 History of Past illness Narrative* Problem Noted Date Resolved Date Tobacco abuse counseling 02/04/2019 022 Bronchitis 02/04/2019 07/28/2021 SUMMARY 04/27/2016 07/28/2021 Overview: 66 year old female with PMHx of HTN, HLD, DM2, hypothyroid and CAD c/b prior NSTEMI s/p two rounds of PCI (2011 BMS to OM1, MARIAELENA to OM1 and to pLCx in 2012) Presented to the ED with worsening chest pressure and L arm numbness. Reports for last several months had intermittent chest pressure and heaviness. Pressure has now become more frequent and constant. Cardiology consulted in the ED and believe symptoms are most likely due to her unstable blood pressure. Cardiology reports a medicine admit would be best for patient at this time. Cardiac enzymes and ekg unremarkable BP initially Elevated to 218/101 and decreased to 187/76 after Nitro. Admitted to medicine for further management. Hypertensive urgency 04/27/2016 07/28/2021 Overview: - Highest measured 230/97 - Patient reports noticed more frequent episodes of chest pain with poor blood pressure control Plan: - Restarted home regimen starting from losartan and coreg from AM ( HR around 55/min now) - Monitoring of blood pressure and adjust accordingly Type II or unspecified type diabetes mellitus without mention of complication, not stated as uncontrolled 02/20/2012 Overview: History: NIDDM, pt not on any home medications HbA1c 6.0 Assessment: NIDDM Plan: SSI documented as of this encounter (statuses as of 07/04/2022) [facility]09-17[facility]2019 History of Past illness Narrative* Problem Noted Date Resolved Date Tobacco abuse counseling 02/04/2019 022 Bronchitis 02/04/2019 07/28/2021 SUMMARY 04/27/2016 07/28/2021 Overview: 66 year old female with PMHx of HTN, HLD, DM2, hypothyroid and CAD c/b prior NSTEMI s/p two rounds of PCI (2011 BMS to OM1, MARIAELENA to OM1 and to pLCx in 2012) Presented to the ED with worsening chest pressure and L arm numbness. Reports for last several months had intermittent chest pressure and heaviness. Pressure has now become more frequent and constant. Cardiology consulted in the ED and believe symptoms are most likely due to her unstable blood pressure. Cardiology reports a medicine admit would be best for patient at this time. Cardiac enzymes and ekg unremarkable BP initially Elevated to 218/101 and decreased to 187/76 after Nitro. Admitted to medicine for further management. Hypertensive urgency 04/27/2016 07/28/2021 Overview: - Highest measured 230/97 - Patient reports noticed more frequent episodes of chest pain with poor blood pressure control Plan: - Restarted home regimen starting from losartan and coreg from AM ( HR around 55/min now) - Monitoring of blood pressure and adjust accordingly Type II or unspecified type diabetes mellitus without mention of complication, not stated as uncontrolled 02/20/2012 Overview: History: NIDDM, pt not on any home medications HbA1c 6.0 Assessment: NIDDM Plan: SSI documented as of this encounter (statuses as of 07/17/2022) [facility]2019 History of Past illness Narrative* Problem Noted Date Resolved Date Tobacco abuse counseling 02/04/2019 022 Bronchitis 02/04/2019 07/28/2021 SUMMARY 04/27/2016 07/28/2021 Overview: 66 year old female with PMHx of HTN, HLD, DM2, hypothyroid and CAD c/b prior NSTEMI s/p two rounds of PCI (2011 BMS to OM1, MARIAELENA to OM1 and to pLCx in 2012) Presented to the ED with worsening chest pressure and L arm numbness. Reports for last several months had intermittent chest pressure and heaviness. Pressure has now become more frequent and constant. Cardiology consulted in the ED and believe symptoms are most likely due to her unstable blood pressure. Cardiology reports a medicine admit would be best for patient at this time. Cardiac enzymes and ekg unremarkable BP initially Elevated to 218/101 and decreased to 187/76 after Nitro. Admitted to medicine for further management. Hypertensive urgency 04/27/2016 07/28/2021 Overview: - Highest measured 230/97 - Patient reports noticed more frequent episodes of chest pain with poor blood pressure control Plan: - Restarted home regimen starting from losartan and coreg from AM ( HR around 55/min now) - Monitoring of blood pressure and adjust accordingly Type II or unspecified type diabetes mellitus without mention of complication, not stated as uncontrolled 02/20/2012 Overview: History: NIDDM, pt not on any home medications HbA1c 6.0 Assessment: NIDDM Plan: SSI documented as of this encounter (statuses as of 08/29/2022) [facility]09-17-2019 History of Past illness Narrative* Problem Noted Date Resolved Date Tobacco abuse counseling 02/04/2019 022 Bronchitis 02/04/2019 07/28/2021 SUMMARY 04/27/2016 07/28/2021 Overview: 66 year old female with PMHx of HTN, HLD, DM2, hypothyroid and CAD c/b prior NSTEMI s/p two rounds of PCI (2011 BMS to OM1, MARIAELENA to OM1 and to pLCx in 2012) Presented to the ED with worsening chest pressure and L arm numbness. Reports for last several months had intermittent chest pressure and heaviness. Pressure has now become more frequent and constant. Cardiology consulted in the ED and believe symptoms are most likely due to her unstable blood pressure. Cardiology reports a medicine admit would be best for patient at this time. Cardiac enzymes and ekg unremarkable BP initially Elevated to 218/101 and decreased to 187/76 after Nitro. Admitted to medicine for further management. Hypertensive urgency 04/27/2016 07/28/2021 Overview: - Highest measured 230/97 - Patient reports noticed more frequent episodes of chest pain with poor blood pressure control Plan: - Restarted home regimen starting from losartan and coreg from AM ( HR around 55/min now) - Monitoring of blood pressure and adjust accordingly Type II or unspecified type diabetes mellitus without mention of complication, not stated as uncontrolled 02/20/2012 Overview: History: NIDDM, pt not on any home medications HbA1c 6.0 Assessment: NIDDM Plan: SSI documented as of this encounter (statuses as of 08/29/2022) [facility]09-17-2019 History of Past illness Narrative* Problem Noted Date Resolved Date Tobacco abuse counseling 02/04/2019 022 Bronchitis 02/04/2019 07/28/2021 SUMMARY 04/27/2016 07/28/2021 Overview: 66 year old female with PMHx of HTN, HLD, DM2, hypothyroid and CAD c/b prior NSTEMI s/p two rounds of PCI (2011 BMS to OM1, MARIAELENA to OM1 and to pLCx in 2012) Presented to the ED with worsening chest pressure and L arm numbness. Reports for last several months had intermittent chest pressure and heaviness. Pressure has now become more frequent and constant. Cardiology consulted in the ED and believe symptoms are most likely due to her unstable blood pressure. Cardiology reports a medicine admit would be best for patient at this time. Cardiac enzymes and ekg unremarkable BP initially Elevated to 218/101 and decreased to 187/76 after Nitro. Admitted to medicine for further management. Hypertensive urgency 04/27/2016 07/28/2021 Overview: - Highest measured 230/97 - Patient reports noticed more frequent episodes of chest pain with poor blood pressure control Plan: - Restarted home regimen starting from losartan and coreg from AM ( HR around 55/min now) - Monitoring of blood pressure and adjust accordingly Type II or unspecified type diabetes mellitus without mention of complication, not stated as uncontrolled 02/20/2012 Overview: History: NIDDM, pt not on any home medications HbA1c 6.0 Assessment: NIDDM Plan: SSI documented as of this encounter (statuses as of 09/04/2022) [facility]09-17-2019 History of Past illness Narrative* Problem Noted Date Resolved Date Tobacco abuse counseling 02/04/2019 022 Bronchitis 02/04/2019 07/28/2021 SUMMARY 04/27/2016 07/28/2021 Overview: 66 year old female with PMHx of HTN, HLD, DM2, hypothyroid and CAD c/b prior NSTEMI s/p two rounds of PCI (2011 BMS to OM1, MARIAELENA to OM1 and to pLCx in 2012) Presented to the ED with worsening chest pressure and L arm numbness. Reports for last several months had intermittent chest pressure and heaviness. Pressure has now become more frequent and constant. Cardiology consulted in the ED and believe symptoms are most likely due to her unstable blood pressure. Cardiology reports a medicine admit would be best for patient at this time. Cardiac enzymes and ekg unremarkable BP initially Elevated to 218/101 and decreased to 187/76 after Nitro. Admitted to medicine for further management. Hypertensive urgency 04/27/2016 07/28/2021 Overview: - Highest measured 230/97 - Patient reports noticed more frequent episodes of chest pain with poor blood pressure control Plan: - Restarted home regimen starting from losartan and coreg from AM ( HR around 55/min now) - Monitoring of blood pressure and adjust accordingly Type II or unspecified type diabetes mellitus without mention of complication, not stated as uncontrolled 02/20/2012 Overview: History: NIDDM, pt not on any home medications HbA1c 6.0 Assessment: NIDDM Plan: SSI documented as of this encounter (statuses as of 10/03/2022) [facility]09-17-2019 History of Past illness Narrative* Problem Noted Date Resolved Date Tobacco abuse counseling 02/04/2019 022 Bronchitis 02/04/2019 07/28/2021 SUMMARY 04/27/2016 07/28/2021 Overview: 66 year old female with PMHx of HTN, HLD, DM2, hypothyroid and CAD c/b prior NSTEMI s/p two rounds of PCI (2012 BMS to OM1, MARIAELENA to OM1 and to pLCx in 2012) Presented to the ED with worsening chest pressure and L arm numbness. Reports for last several months had intermittent chest pressure and heaviness. Pressure has now become more frequent and constant. Cardiology consulted in the ED and believe symptoms are most likely due to her unstable blood pressure. Cardiology reports a medicine admit would be best for patient at this time. Cardiac enzymes and ekg unremarkable BP initially Elevated to 218/101 and decreased to 187/76 after Nitro. Admitted to medicine for further management. Hypertensive urgency 04/27/2016 07/28/2021 Overview: - Highest measured 230/97 - Patient reports noticed more frequent episodes of chest pain with poor blood pressure control Plan: - Restarted home regimen starting from losartan and coreg from AM ( HR around 55/min now) - Monitoring of blood pressure and adjust accordingly Type II or unspecified type diabetes mellitus without mention of complication, not stated as uncontrolled 02/20/2012 Overview: History: NIDDM, pt not on any home medications HbA1c 6.0 Assessment: NIDDM Plan: SSI documented as of this encounter (statuses as of 10/03/2022) [facility]09-17-2019 History of Past illness Narrative* Problem Noted Date Diagnosed Date Resolved Date Tobacco abuse counseling 02/04/201902/2022 Bronchitis 02/04/2019 07/28/2021 SUMMARY 04/27/2016 07/28/2021 Overview: 66 year old female with PMHx of HTN, HLD, DM2, hypothyroid and CAD c/b prior NSTEMI s/p two rounds of PCI (2012 BMS to OM1, MARIAELENA to OM1 and to pLCx in 2012) Presented to the ED with worsening chest pressure and L arm numbness. Reports for last several months had intermittent chest pressure and heaviness. Pressure has now become more frequent and constant. Cardiology consulted in the ED and believe symptoms are most likely due to her unstable blood pressure. Cardiology reports a medicine admit would be best for patient at this time. Cardiac enzymes and ekg unremarkable BP initially Elevated to 218/101 and decreased to 187/76 after Nitro. Admitted to medicine for further management. Hypertensive urgency 04/27/2016 022 Overview: - Highest measured 230/97 - Patient reports noticed more frequent episodes of chest pain with poor blood pressure control Plan: - Restarted home regimen starting from losartan and coreg from AM ( HR around 55/min now) - Monitoring of blood pressure and adjust accordingly Type II or unspecified type diabetes mellitus without mention of complication, not stated as uncontrolled 02/20/2012 11/06/2018 Overview: History: NIDDM, pt not on any home medications HbA1c 6.0 Assessment: NIDDM Plan: SSI documented as of this encounter (statuses as of 12/20/2022) [facility]09-17-2019 History of Past illness Narrative* Problem Noted Date Diagnosed Date Resolved Date Tobacco abuse counseling 02/04/201902/2022 Bronchitis 02/04/2019 07/28/2021 SUMMARY 04/27/2016 07/28/2021 Overview: 66 year old female with PMHx of HTN, HLD, DM2, hypothyroid and CAD c/b prior NSTEMI s/p two rounds of PCI (2011 BMS to OM1, MARIAELENA to OM1 and to pLCx in 2012) Presented to the ED with worsening chest pressure and L arm numbness. Reports for last several months had intermittent chest pressure and heaviness. Pressure has now become more frequent and constant. Cardiology consulted in the ED and believe symptoms are most likely due to her unstable blood pressure. Cardiology reports a medicine admit would be best for patient at this time. Cardiac enzymes and ekg unremarkable BP initially Elevated to 218/101 and decreased to 187/76 after Nitro. Admitted to medicine for further management. Hypertensive urgency 04/27/2016 022 Overview: - Highest measured 230/97 - Patient reports noticed more frequent episodes of chest pain with poor blood pressure control Plan: - Restarted home regimen starting from losartan and coreg from AM ( HR around 55/min now) - Monitoring of blood pressure and adjust accordingly Type II or unspecified type diabetes mellitus without mention of complication, not stated as uncontrolled 02/20/2012 11/06/2018 Overview: History: NIDDM, pt not on any home medications HbA1c 6.0 Assessment: NIDDM Plan: SSI documented as of this encounter (statuses as of 01/05/2023) [facility]09-17-2019 History of Past illness Narrative* Problem Noted Date Diagnosed Date Resolved Date Tobacco abuse counseling 02/04/201902/2022 Bronchitis 02/04/2019 07/28/2021 SUMMARY 04/27/2016 07/28/2021 Overview: 66 year old female with PMHx of HTN, HLD, DM2, hypothyroid and CAD c/b prior NSTEMI s/p two rounds of PCI (2011 BMS to OM1, MARIAELENA to OM1 and to pLCx in 2012) Presented to the ED with worsening chest pressure and L arm numbness. Reports for last several months had intermittent chest pressure and heaviness. Pressure has now become more frequent and constant. Cardiology consulted in the ED and believe symptoms are most likely due to her unstable blood pressure. Cardiology reports a medicine admit would be best for patient at this time. Cardiac enzymes and ekg unremarkable BP initially Elevated to 218/101 and decreased to 187/76 after Nitro. Admitted to medicine for further management. Hypertensive urgency 04/27/2016 022 Overview: - Highest measured 230/97 - Patient reports noticed more frequent episodes of chest pain with poor blood pressure control Plan: - Restarted home regimen starting from losartan and coreg from AM ( HR around 55/min now) - Monitoring of blood pressure and adjust accordingly Type II or unspecified type diabetes mellitus without mention of complication, not stated as uncontrolled 02/20/2012 11/06/2018 Overview: History: NIDDM, pt not on any home medications HbA1c 6.0 Assessment: NIDDM Plan: SSI documented as of this encounter (statuses as of 03/02/2023) [facility]09-17-2019 History of Past illness Narrative* Problem Noted Date Diagnosed Date Resolved Date Tobacco abuse counseling 02/04/201902/2022 Bronchitis 02/04/2019 07/28/2021 SUMMARY 04/27/2016 07/28/2021 Overview: 66 year old female with PMHx of HTN, HLD, DM2, hypothyroid and CAD c/b prior NSTEMI s/p two rounds of PCI (2012 BMS to OM1, MARIAELENA to OM1 and to pLCx in 2012) Presented to the ED with worsening chest pressure and L arm numbness. Reports for last several months had intermittent chest pressure and heaviness. Pressure has now become more frequent and constant. Cardiology consulted in the ED and believe symptoms are most likely due to her unstable blood pressure. Cardiology reports a medicine admit would be best for patient at this time. Cardiac enzymes and ekg unremarkable BP initially Elevated to 218/101 and decreased to 187/76 after Nitro. Admitted to medicine for further management. Hypertensive urgency 04/27/2016 022 Overview: - Highest measured 230/97 - Patient reports noticed more frequent episodes of chest pain with poor blood pressure control Plan: - Restarted home regimen starting from losartan and coreg from AM ( HR around 55/min now) - Monitoring of blood pressure and adjust accordingly Type II or unspecified type diabetes mellitus without mention of complication, not stated as uncontrolled 02/20/2012 11/06/2018 Overview: History: NIDDM, pt not on any home medications HbA1c 6.0 Assessment: NIDDM Plan: SSI documented as of this encounter (statuses as of 04/11/2023) [facility]09-17-2019 History of Past illness Narrative* Problem Noted Date Diagnosed Date Resolved Date Tobacco abuse counseling 02/04/201902/2022 Bronchitis 02/04/2019 07/28/2021 SUMMARY 04/27/2016 07/28/2021 Overview: 66 year old female with PMHx of HTN, HLD, DM2, hypothyroid and CAD c/b prior NSTEMI s/p two rounds of PCI (2012 BMS to OM1, MARIAELENA to OM1 and to pLCx in 2012) Presented to the ED with worsening chest pressure and L arm numbness. Reports for last several months had intermittent chest pressure and heaviness. Pressure has now become more frequent and constant. Cardiology consulted in the ED and believe symptoms are most likely due to her unstable blood pressure. Cardiology reports a medicine admit would be best for patient at this time. Cardiac enzymes and ekg unremarkable BP initially Elevated to 218/101 and decreased to 187/76 after Nitro. Admitted to medicine for further management. Hypertensive urgency 04/27/2016 022 Overview: - Highest measured 230/97 - Patient reports noticed more frequent episodes of chest pain with poor blood pressure control Plan: - Restarted home regimen starting from losartan and coreg from AM ( HR around 55/min now) - Monitoring of blood pressure and adjust accordingly Type II or unspecified type diabetes mellitus without mention of complication, not stated as uncontrolled 02/20/2012 11/06/2018 Overview: History: NIDDM, pt not on any home medications HbA1c 6.0 Assessment: NIDDM Plan: SSI documented as of this encounter (statuses as of 05/21/2023) [facility]09-17-2019 History of Past illness Narrative* Problem Noted Date Diagnosed Date Resolved Date Tobacco abuse counseling 02/04/201902/2022 Bronchitis 02/04/2019 07/28/2021 SUMMARY 04/27/2016 07/28/2021 Overview: 66 year old female with PMHx of HTN, HLD, DM2, hypothyroid and CAD c/b prior NSTEMI s/p two rounds of PCI (2011 BMS to OM1, MARIAELENA to OM1 and to pLCx in 2012) Presented to the ED with worsening chest pressure and L arm numbness. Reports for last several months had intermittent chest pressure and heaviness. Pressure has now become more frequent and constant. Cardiology consulted in the ED and believe symptoms are most likely due to her unstable blood pressure. Cardiology reports a medicine admit would be best for patient at this time. Cardiac enzymes and ekg unremarkable BP initially Elevated to 218/101 and decreased to 187/76 after Nitro. Admitted to medicine for further management. Hypertensive urgency 04/27/2016 022 Overview: - Highest measured 230/97 - Patient reports noticed more frequent episodes of chest pain with poor blood pressure control Plan: - Restarted home regimen starting from losartan and coreg from AM ( HR around 55/min now) - Monitoring of blood pressure and adjust accordingly Type II or unspecified type diabetes mellitus without mention of complication, not stated as uncontrolled 02/20/2012 11/06/2018 Overview: History: NIDDM, pt not on any home medications HbA1c 6.0 Assessment: NIDDM Plan: SSI documented as of this encounter (statuses as of 06/23/2023) [facility] note* Diagnosis Onset Date Resolution Status Accelerated hypertension acu te Acute UTI acute Ophthalmic herpes zoster infection acute Right distal ureteral calculus acute Urolithiasis acute [facility] Work Phone: Evaluation note* Diagnosis Urinary tract infection without hematuria, site unspecified- Primary Urinary tract stones Urinary calculus, unspecified Essential hypertension Unspecified essential hypertension documented in this encounter [facility] note* Diagnosis Onset Date Resolution Status Acute UTI acute Right distal ureteral calculus acute Urolithiasis acute [facility] Work Phone: Evaluation note* Diagnosis Gross hematuria- Primary documented in this encounter [facility] note* Diagnosis Hyperlipidemia, unspecified hyperlipidemia type Hypothyroidism, unspecified type Benzodiazepine dependence (HCC) Sedative, hypnotic or anxiolytic dependence, unspecified documented in this encounter [facility] note* Diagnosis Hyperlipidemia, unspecified hyperlipidemia type documented in this encounter [facility] note* Diagnosis Medication management Encounter for long-term (current) use of other medications documented in this encounter [facility] note* Diagnosis Hypertension, unspecified type- Primary documented in this encounter [facility] note* Diagnosis Hypertension, unspecified type- Primary Acute cough Hyperkalemia Hyperpotassemia Prediabetes Other abnormal glucose Urinary tract stones Urinary calculus, unspecified documented in this encounter [facility] note* Diagnosis Hyperlipidemia Other and unspecified hyperlipidemia documented in this encounter [facility] note* Diagnosis Other fatigue- Primary Hypertension, unspecified type Hyperlipidemia, unspecified hyperlipidemia type Chronic cough Cough Depression, unspecified depression type Prediabetes Other abnormal glucose Hypothyroidism, unspecified type Vitamin D deficiency Unspecified vitamin D deficiency documented in this encounter [facility] note* Diagnosis Encounter for screening mammogram for breast cancer documented in this encounter [facility] note* Diagnosis Benzodiazepine dependence (HCC) Sedative, hypnotic or anxiolytic dependence, unspecified [facility]* Diagnosis Acute cough- Primary [facility]* Diagnosis Fever, unspecified fever cause- Primary Acute cough documented in this encounter [facility] note* Diagnosis Hypothyroidism, unspecified type documented in this encounter [facility] noteNo assessment information [facility]WRiverview [facility] Work Phone: Evaluation note* Diagnosis Hematuria, unspecified type- Primary documented in this encounter [facility] note* Diagnosis Right flank pain- Primary Abdominal pain, unspecified site Lower abdominal pain Abdominal pain, other specified site Other fatigue Hypertensive kidney disease with stage 3a chronic kidney disease (HCC) Hypothyroidism, unspecified type Hyperlipidemia, unspecified hyperlipidemia type DC (obstructive sleep apnea) Obstructive sleep apnea (adult) (pediatric) Vitamin D deficiency Unspecified vitamin D deficiency Prediabetes Other abnormal glucose Benzodiazepine dependence (HCC) Sedative, hypnotic or anxiolytic dependence, unspecified [facility]* Diagnosis Hyperlipidemia, unspecified hyperlipidemia type- Primary Hypothyroidism, unspecified type documented in this encounter [facility] note* Diagnosis Acute cough [facility] Diagnosis Hypothyroidism, unspecified type documented in this encounter [facility] note* Diagnosis Onychomycosis Dermatophytosis of nail Subungual exostosis Exostosis of unspecified site documented in this encounter [facility] note* Diagnosis Hip pain Pain in joint, pelvic region and thigh documented in this encounter [facility] note* Diagnosis Uncontrolled hypertension- Primary Unspecified essential hypertension Vitamin D deficiency Unspecified vitamin D deficiency Iron deficiency Iron deficiency anemia, unspecified Stage 3a chronic kidney disease (HCC) Hypothyroidism, unspecified type [facility]* Diagnosis Recurrent UTI- Primary Urinary tract infection, site not specified [facility] Diagnosis Hypothyroidism, unspecified type [facility]* Diagnosis Other fatigue- Primary Lower abdominal tenderness Abdominal tenderness, other specified site History of non-ST elevation myocardial infarction (NSTEMI) Old myocardial infarction Muscle aches Weakness of both lower extremities Chest pain, unspecified type Hypothyroidism, unspecified type Uncontrolled hypertension Unspecified essential hypertension DC (obstructive sleep apnea) Obstructive sleep apnea (adult) (pediatric) Urine leukocytes Other cells and casts in urine Chronic midline low back pain, unspecified whether sciatica present Bilateral hip pain Pain in joint, pelvic region and thigh Subacute cough Cough Stage 3b chronic kidney disease (HCC) Prediabetes Other abnormal glucose Vitamin D deficiency Unspecified vitamin D deficiency Nicotine dependence, cigarettes, uncomplicated documented [facility]* Diagnosis Hypothyroidism, unspecified type documented in this encounter [facility] note* Diagnosis Weakness of both lower extremities Chronic midline low back pain, unspecified whether sciatica present Bilateral hip pain Pain in joint, pelvic region and thigh Other fatigue Chest pain, unspecified type Subacute cough Cough documented in this encounter [facility] note* Diagnosis Other fatigue- Primary Muscle aches Multiple joint pain Pain in joint, multiple sites Elevated sed rate Elevated sedimentation rate documented in this encounter [facility] for referral (narrative)* Diagnostic Procedure Only (Routine) - Pending Review Specialty Diagnoses / Procedures Referred By Maritza ferguson Referred To Contact [facility] Diagnoses Encounter for screening mammogram for breast cancer Procedures [facility]ALIA SCREENING SCREENING MAMMOGRAPHY BI 2-VIEW BREAST INC CAD Jessica Clark MD [address] [place] [address] [facility] [address] [place] [address] Referral ID Status Reason Start Date Expiration Date Visits Requested Visits Authorized [id number] Pending Review Auto-Generat ed Referral 07/12/2022 08/11/2023 1 1 [facility] for referral (narrative)* Diagnostic Procedure Only (Routine) - Closed Specialty Diagnoses / Procedures Referred By Maritza ferguson Referred To Contact [facility] Diagnoses Onychomycosis Subungual exostosis Procedures XR TOE AP/LAT/OBL LEFT X-RAY TOE(S) Rachid Ritter [address] [place] [address] [place] [id number] Referral ID Status Reason Start Date Expiration Date V isits Requested Visits Authorized [id number] Closed Auto-Generate d Referral 05/25/2021 06/24/2022 1 1 [facility] for visit Narrative* Diagnostic Procedure Only (Routine) - Closed Specialty Diagnoses / Procedures Referred By Contac t Referred To Contact [facility] IMAG[facility] Diagnoses Onychomycosis Subungual exostosis Procedures XR TOE AP/LAT/OBL LEFT X-RAY TOE(S) Riya Rachid [address] [place] [address] [place] [address] Referral ID Status Reason Start Date Expiration Date V isits Requested Visits Authorized [id number] Closed Auto-Generate d Referral 05/25/2021 06/24/2022 1 1 [facility] for visit Narrative* Diagnostic Procedure Only (Routine) - Closed Specialty Diagnoses / Procedures Referred By Contac t Referred To Contact XR IMAGING Diagnoses Weakness of both lower extremities Bilateral hip pain Procedures XR HIP BILATERAL 5V PEL/AP/LAT EACH HIP RADEX HIPS BILATERAL WITH PELVIS MINIMUM 5 VIEWS Angélica Morataya APRN.OUTPATIENT PHYSICAL THERAPIST [address] [place] [address] Phone: tel: fax: [place] [phone] Referral ID Status Reason Start Date Expiration Date V isits Requested Visits Authorized [id number] Closed Auto-Generate d Referral 01/12/2025 02/11/2026 1 1 [facility] Summary Purpose Family History No Family History Records Found Relationship Condition Age at Onset Recorded Date/T niya mother Cardiac disease Unknown Hypertension Unknown Hyperlipidemia Unknown father Malignant neoplasm Unknown Advance Directives No Advanced Directives Records Found Advance Directive Response Recorded Date/ Time Living Will No August 12, 2021 4:41am Power of Project Development Engineer No August 12 4:41am Documents on File Type Date Recorded Patient Field Rep Expl anation Advance Directive(s) 04/26/2016 8:02 PM Advance Directive Response Recorded Date/ Time Living Will No August 19, 2021 3:04pm Power of Project Development Engineer No August 19 3:04pm Advance Directive Response Recorded Date/ Time Living Will No January 04 5:43pm Power of Project Development Engineer Yes January 04, 023 5:43pm Name of Medical Power of Project Development Engineer SHAHEED BORDEN January 04, 2023 5:43pm Chief Complaint and Reason for Visit Chief Complaint URETERIC CALCULUS WI TH UTI ABDOMINAL PAIN Reason for Visit Accelerated hyperten yevgeniy Acute UTI Ophthalmic herpes zoster infection Right distal ureteral calculus Urolithiasis Chief Complaint URETERIC CALCULUS WI TH UTI ABDOMINAL PAIN RT CYSTO URETEROSCOPY LASER STENT Reason for Visit Acute UTI Right distal ureteral calculus Urolithiasis Chief Complaint URETERIC CALCULUS WI TH UTI ABDOMINAL PAIN RT CYSTO URETEROSCOPY LASER STENT GROSS HEMATURIA Reason for Visit Acute UTI Right distal ureteral calculus Urolithiasis Chief Complaint hematuria Reason for Referral Specialty Diagnoses / Procedures Referred By Maritza ferguson Referred To Contact Cardiology Diagnoses Hyperlipidemia, unspecified hyperlipidemia type Hypertensive kidney disease with stage 3a chronic kidney disease (HCC) Procedures CONSULT TO CARDIOLOGY OFFICE/OUTPATIENT [facility] MDM 60 MINUTES Older, MARGO Lindsay.OUTPATIENT PHYSICAL THERAPIST [address] [place] [address] Referral ID Status Reason Start Date Expiration Date Visits Requested Visits Authorized [id number] Authorized PCP Requested Referral 01/02/2024 01/01/2025 1 1 Additional Source Comments INFORMATION SOURCE (unrecogn ized section and content) DATE CREATED AUTHOR 11/07/2017 [facility] DATE CREATED AUTHOR AUTHOR'S ORGANIZ ATION 11/22/2017 [facility] DATE CREATED AUTHOR AUTHOR'S ORGANIZ ATION 06/03/2024 [facility] DATE CREATED AUTHOR AUTHOR'S ORGANIZ ATION 02/09/2025 [facility] Source Comments (unrecognize d section and content) In the event this informatio n is protected by the Federal Confidentiality of Alcohol and Drug Abuse Patient Records regulations: The Federal rules restrict any use of the information to criminally investigate or prosecute any alcohol or drug abuse patient.[facility] the event this information is protected by the Federal Confidentiality of Alcohol and Drug Abuse Patient Records regulations: The Federal rules restrict any use of the information to criminally investigate or prosecute any alcohol or drug abuse patient.[facility] the event this information is protected by the Federal Confidentiality of Alcohol and Drug Abuse Patient Records regulations: The Federal rules restrict any use of the information to criminally investigate or prosecute any alcohol or drug abuse patient.[facility] the event this information is protected by the Federal Confidentiality of Alcohol and Drug Abuse Patient Records regulations: The Federal rules restrict any use of the information to criminally investigate or prosecute any alcohol or drug abuse patient.[facility] the event this information is protected by the Federal Confidentiality of Alcohol and Drug Abuse Patient Records regulations: The Federal rules restrict any use of the information to criminally investigate or prosecute any alcohol or drug abuse patient.[facility] the event this information is protected by the Federal Confidentiality of Alcohol and Drug Abuse Patient Records regulations: The Federal rules restrict any use of the information to criminally investigate or prosecute any alcohol or drug abuse patient.[facility] the event this information is protected by the Federal Confidentiality of Alcohol and Drug Abuse Patient Records regulations: The Federal rules restrict any use of the information to criminally investigate or prosecute any alcohol or drug abuse patient.[facility] the event this information is protected by the Federal Confidentiality of Alcohol and Drug Abuse Patient Records regulations: The Federal rules restrict any use of the information to criminally investigate or prosecute any alcohol or drug abuse patient.[facility] the event this information is protected by the Federal Confidentiality of Alcohol and Drug Abuse Patient Records regulations: The Federal rules restrict any use of the information to criminally investigate or prosecute any alcohol or drug abuse patient.[facility] the event this information is protected by the Federal Confidentiality of Alcohol and Drug Abuse Patient Records regulations: The Federal rules restrict any use of the information to criminally investigate or prosecute any alcohol or drug abuse patient.[facility] the event this information is protected by the Federal Confidentiality of Alcohol and Drug Abuse Patient Records regulations: The Federal rules restrict any use of the information to criminally investigate or prosecute any alcohol or drug abuse patient.[facility] the event this information is protected by the Federal Confidentiality of Alcohol and Drug Abuse Patient Records regulations: The Federal rules restrict any use of the information to criminally investigate or prosecute any alcohol or drug abuse patient.[facility] the event this information is protected by the Federal Confidentiality of Alcohol and Drug Abuse Patient Records regulations: The Federal rules restrict any use of the information to criminally investigate or prosecute any alcohol or drug abuse patient.[facility] the event this information is protected by the Federal Confidentiality of Alcohol and Drug Abuse Patient Records regulations: The Federal rules restrict any use of the information to criminally investigate or prosecute any alcohol or drug abuse patient.[facility] the event this information is protected by the Federal Confidentiality of Alcohol and Drug Abuse Patient Records regulations: The Federal rules restrict any use of the information to criminally investigate or prosecute any alcohol or drug abuse patient.[facility] the event this information is protected by the Federal Confidentiality of Alcohol and Drug Abuse Patient Records regulations: The Federal rules restrict any use of the information to criminally investigate or prosecute any alcohol or drug abuse patient.[facility] the event this information is protected by the Federal Confidentiality of Alcohol and Drug Abuse Patient Records regulations: The Federal rules restrict any use of the information to criminally investigate or prosecute any alcohol or drug abuse patient.[facility] the event this information is protected by the Federal Confidentiality of Alcohol and Drug Abuse Patient Records regulations: The Federal rules restrict any use of the information to criminally investigate or prosecute any alcohol or drug abuse patient.[facility]In the event this information is protected by the Federal Confidentiality of Alcohol and Drug Abuse Patient Records regulations: The Federal rules restrict any use of the information to criminally investigate or prosecute any alcohol or drug abuse patient.[facility] WestIn the event this information is protected by the Federal Confidentiality of Alcohol and Drug Abuse Patient Records regulations: The Federal rules restrict any use of the information to criminally investigate or prosecute any alcohol or drug abuse patient.[facility]In the event this information is protected by the Federal Confidentiality of Alcohol and Drug Abuse Patient Records regulations: The Federal rules restrict any use of the information to criminally investigate or prosecute any alcohol or drug abuse patient.[facility]In the event this information is protected by the Federal Confidentiality of Alcohol and Drug Abuse Patient Records regulations: The Federal rules restrict any use of the information to criminally investigate or prosecute any alcohol or drug abuse patient.[facility]In the event this information is protected by the Federal Confidentiality of Alcohol and Drug Abuse Patient Records regulations: The Federal rules restrict any use of the information to criminally investigate or prosecute any alcohol or drug abuse patient.[facility]In the event this information is protected by the Federal Confidentiality of Alcohol and Drug Abuse Patient Records regulations: The Federal rules restrict any use of the information to criminally investigate or prosecute any alcohol or drug abuse patient.[facility]In the event this information is protected by the Federal Confidentiality of Alcohol and Drug Abuse Patient Records regulations: The Federal rules restrict any use of the information to criminally investigate or prosecute any alcohol or drug abuse patient.[facility]In the event this information is protected by the Federal Confidentiality of Alcohol and Drug Abuse Patient Records regulations: The Federal rules restrict any use of the information to criminally investigate or prosecute any alcohol or drug abuse patient.[facility]In the event this information is protected by the Federal Confidentiality of Alcohol and Drug Abuse Patient Records regulations: The Federal rules restrict any use of the information to criminally investigate or prosecute any alcohol or drug abuse patient.[facility]In the event this information is protected by the Federal Confidentiality of Alcohol and Drug Abuse Patient Records regulations: The Federal rules restrict any use of the information to criminally investigate or prosecute any alcohol or drug abuse patient.[facility]In the event this information is protected by the Federal Confidentiality of Alcohol and Drug Abuse Patient Records regulations: The Federal rules restrict any use of the information to criminally investigate or prosecute any alcohol or drug abuse patient.[facility]In the event this information is protected by the Federal Confidentiality of Alcohol and Drug Abuse Patient Records regulations: The Federal rules restrict any use of the information to criminally investigate or prosecute any alcohol or drug abuse patient.[facility]In the event this information is protected by the Federal Confidentiality of Alcohol and Drug Abuse Patient Records regulations: The Federal rules restrict any use of the information to criminally investigate or prosecute any alcohol or drug abuse patient.[facility]In the event this information is protected by the Federal Confidentiality of Alcohol and Drug Abuse Patient Records regulations: The Federal rules restrict any use of the information to criminally investigate or prosecute any alcohol or drug abuse patient.[facility]In the event this information is protected by the Federal Confidentiality of Alcohol and Drug Abuse Patient Records regulations: The Federal rules restrict any use of the information to criminally investigate or prosecute any alcohol or drug abuse patient.[facility]In the event this information is protected by the Federal Confidentiality of Alcohol and Drug Abuse Patient Records regulations: The Federal rules restrict any use of the information to criminally investigate or prosecute any alcohol or drug abuse patient.[facility]In the event this information is protected by the Federal Confidentiality of Alcohol and Drug Abuse Patient Records regulations: The Federal rules restrict any use of the information to criminally investigate or prosecute any alcohol or drug abuse patient.[facility] WestIn the event this information is protected by the Federal Confidentiality of Alcohol and Drug Abuse Patient Records regulations: The Federal rules restrict any use of the information to criminally investigate or prosecute any alcohol or drug abuse patient.[facility]In the event this information is protected by the Federal Confidentiality of Alcohol and Drug Abuse Patient Records regulations: The Federal rules restrict any use of the information to criminally investigate or prosecute any alcohol or drug abuse patient.[facility]In the event this information is protected by the Federal Confidentiality of Alcohol and Drug Abuse Patient Records regulations: The Federal rules restrict any use of the information to criminally investigate or prosecute any alcohol or drug abuse patient.[facility]In the event this information is protected by the Federal Confidentiality of Alcohol and Drug Abuse Patient Records regulations: The Federal rules restrict any use of the information to criminally investigate or prosecute any alcohol or drug abuse patient.[facility]In the event this information is protected by the Federal Confidentiality of Alcohol and Drug Abuse Patient Records regulations: The Federal rules restrict any use of the information to criminally investigate or prosecute any alcohol or drug abuse patient.[facility]In the event this information is protected by the Federal Confidentiality of Alcohol and Drug Abuse Patient Records regulations: The Federal rules restrict any use of the information to criminally investigate or prosecute any alcohol or drug abuse patient.[facility]In the event this information is protected by the Federal Confidentiality of Alcohol and Drug Abuse Patient Records regulations: The Federal rules restrict any use of the information to criminally investigate or prosecute any alcohol or drug abuse patient.[facility] WestIn the event this information is protected by the Federal Confidentiality of Alcohol and Drug Abuse Patient Records regulations: The Federal rules restrict any use of the information to criminally investigate or prosecute any alcohol or drug abuse patient.[facility] WestIn the event this information is protected by the Federal Confidentiality of Alcohol and Drug Abuse Patient Records regulations: The Federal rules restrict any use of the information to criminally investigate or prosecute any alcohol or drug abuse patient.[facility] WestIn the event this information is protected by the Federal Confidentiality of Alcohol and Drug Abuse Patient Records regulations: The Federal rules restrict any use of the information to criminally investigate or prosecute any alcohol or drug abuse patient.[facility] WestIn the event this information is protected by the Federal Confidentiality of Alcohol and Drug Abuse Patient Records regulations: The Federal rules restrict any use of the information to criminally investigate or prosecute any alcohol or drug abuse patient.[facility] WestIn the event this information is protected by the Federal Confidentiality of Alcohol and Drug Abuse Patient Records regulations: The Federal rules restrict any use of the information to criminally investigate or prosecute any alcohol or drug abuse patient.[facility] WestIn the event this information is protected by the Federal Confidentiality of Alcohol and Drug Abuse Patient Records regulations: The Federal rules restrict any use of the information to criminally investigate or prosecute any alcohol or drug abuse patient.[facility]In the event this information is protected by the Federal Confidentiality of Alcohol and Drug Abuse Patient Records regulations: The Federal rules restrict any use of the information to criminally investigate or prosecute any alcohol or drug abuse patient.[facility] WestIn the event this information is protected by the Federal Confidentiality of Alcohol and Drug Abuse Patient Records regulations: The Federal rules restrict any use of the information to criminally investigate or prosecute any alcohol or drug abuse patient.[facility] WestIn the event this information is protected by the Federal Confidentiality of Alcohol and Drug Abuse Patient Records regulations: The Federal rules restrict any use of the information to criminally investigate or prosecute any alcohol or drug abuse patient.[facility] WestIn the event this information is protected by the Federal Confidentiality of Alcohol and Drug Abuse Patient Records regulations: The Federal rules restrict any use of the information to criminally investigate or prosecute any alcohol or drug abuse patient.[facility] WestIn the event this information is protected by the Federal Confidentiality of Alcohol and Drug Abuse Patient Records regulations: The Federal rules restrict any use of the information to criminally investigate or prosecute any alcohol or drug abuse patient.[facility] WestIn the event this information is protected by the Federal Confidentiality of Alcohol and Drug Abuse Patient Records regulations: The Federal rules restrict any use of the information to criminally investigate or prosecute any alcohol or drug abuse patient.[facility] WestIn the event this information is protected by the Federal Confidentiality of Alcohol and Drug Abuse Patient Records regulations: The Federal rules restrict any use of the information to criminally investigate or prosecute any alcohol or drug abuse patient.[facility] WestIn the event this information is protected by the Federal Confidentiality of Alcohol and Drug Abuse Patient Records regulations: The Federal rules restrict any use of the information to criminally investigate or prosecute any alcohol or drug abuse patient.[facility]In the event this information is protected by the Federal Confidentiality of Alcohol and Drug Abuse Patient Records regulations: The Federal rules restrict any use of the information to criminally investigate or prosecute any alcohol or drug abuse patient.[facility]In the event this information is protected by the Federal Confidentiality of Alcohol and Drug Abuse Patient Records regulations: The Federal rules restrict any use of the information to criminally investigate or prosecute any alcohol or drug abuse patient.[facility] WestIn the event this information is protected by the Federal Confidentiality of Alcohol and Drug Abuse Patient Records regulations: The Federal rules restrict any use of the information to criminally investigate or prosecute any alcohol or drug abuse patient.[facility] WestIn the event this information is protected by the Federal Confidentiality of Alcohol and Drug Abuse Patient Records regulations: The Federal rules restrict any use of the information to criminally investigate or prosecute any alcohol or drug abuse patient.[facility] WestIn the event this information is protected by the Federal Confidentiality of Alcohol and Drug Abuse Patient Records regulations: The Federal rules restrict any use of the information to criminally investigate or prosecute any alcohol or drug abuse patient.[facility]In the event this information is protected by the Federal Confidentiality of Alcohol and Drug Abuse Patient Records regulations: The Federal rules restrict any use of the information to criminally investigate or prosecute any alcohol or drug abuse patient.[facility]In the event this information is protected by the Federal Confidentiality of Alcohol and Drug Abuse Patient Records regulations: The Federal rules restrict any use of the information to criminally investigate or prosecute any alcohol or drug abuse patient.[facility] Reason for Visit (unrecogniz ed section and content) Reason Comments Established Patient hospital follow up stent placement for kidney stones Reason Comments Patient Update Reason Comments Results Reason Comments Hematuria hematuria x 1 day Reason Comments lab results fax to Dr Zamora Reason Comments Refill Request Reason Comments Medication Problem Reason Comments Blood Pressure Check Reason Comments Blood Pressure Reason Comments Recheck BP follow up Reason Comments F/U 3 Month vitamin d patient states she h ad been on this in the past but was taken off of it and feels needs to go back on it. Reason Onset Date Comments Refill Request 08/28/2022 Reason Comments Medication Request Reason Comments Chest Congestion cough, nasal congest ion, drainage, sore throat x 5 days Reason Onset Date Comments Refill Request 12/19/2022 Reason Comments Hematuria With low back and lo wer abd pain x4 days Reason Onset Date Comments Refill Request 04/11/2023 Reason Comments Rx refill; not on med list Reason Onset Date Comments Refill Request 06/22/2023 90 days due to i nsurance Reason Comments Medicare Wellness Exam Medicare Wellness Reason Comments Patient Update Consult Reason Onset Date Comments Refill Request 02/15/2024 Reason Onset Date Comments Transition Of Care 03/18/2024 [facility] Discharge 03/14/24 Reason Comments home health update Reason Comments home health requesting verbal orders Reason Comments Hospital Follow Up Reason Onset Date Comments Transition Of Care 03/25/2024 [facility]- Follow-up Day 11 Reason Comments HH orders Reason Comments Patient Question Reason Onset Date Comments Population Health Navigation Outreach 04/08/2024 [facility] list 2023 Reason Onset Date Comments Refill Request 06/25/2024 Reason Onset Date Comments Population Health Navigation Outreach 07/03/2024 [facility] Reason Onset Date Comments Population Health Navigation Outreach 08/04/2024 [facility] Reason Onset Date Comments Population Health Navigation Outreach 09/03/2024 [facility] Reason Onset Date Comments Refill Request 10/02/2024 Reason Onset Date Comments Population Health Navigation Outreach 10/06/2024 [facility] Reason Onset Date Comments Refill Request 01/05/2025 Reason Comments Medicare Wellness Exam Annual Medicare W ellness Reason Onset Date Comments Refill Request 01/12/2025 Care Teams (unrecognized sec tion and content) Mechanical Engineering Lecturer Relationship Specialty Start Date End Date Jessica Clark MD [address] [facility] [place] [address] PCP - General Internal Medicine 02/17/20 Mechanical Engineering Lecturer Relationship Specialty Start Date End Date Jessica Clark MD [address] [facility] [place] [address] PCP - General Internal Medicine 02/17/20 Mechanical Engineering Lecturer Relationship Specialty Start Date End Date Jessica Clark MD [address] [facility] [place] [address] PCP - General Internal Medicine 02/17/20 Mechanical Engineering Lecturer Relationship Specialty Start Date End Date Jessica Clark MD [address] [facility] [place] [address] PCP - General Internal Medicine 10/18/21 Mechanical Engineering Lecturer Relationship Specialty Start Date End Date Jessica Clark MD [address] [facility] [place] [address] PCP - General Internal Medicine 10/18/21 Mechanical Engineering Lecturer Relationship Specialty Start Date End Date Jessica Clark MD [address] [facility] [place] [address] PCP - General Internal Medicine 01/06/22 Mechanical Engineering Lecturer Relationship Specialty Start Date End Date Jessica Clark MD [address] [place] [address] PCP - General Internal Medicine 01/06/22 Mechanical Engineering Lecturer Relationship Specialty Start Date End Date Jessica Clark MD [address] [place] [address] PCP - General Internal Medicine 01/06/22 Mechanical Engineering Lecturer Relationship Specialty Start Date End Date Jessica Clrak MD [address] [facility] [place] [address] PCP - General Internal Medicine 01/06/22 Mechanical Engineering Lecturer Relationship Specialty Start Date End Date Jessica Clark MD [address] [facility] [place] [address] PCP - General Internal Medicine 01/06/22 Mechanical Engineering Lecturer Relationship Specialty Start Date End Date Jessica Clark MD [address] [facility] [place] [address] PCP - General Internal Medicine 01/06/22 Mechanical Engineering Lecturer Relationship Specialty Start Date End Date Jessica Clark MD [address] [facility] [place] [address] PCP - General Internal Medicine 01/06/22 Mechanical Engineering Lecturer Relationship Specialty Start Date End Date Jessica Clark MD [address] [facility] [place] [address] PCP - General Internal Medicine 01/06/22 Mechanical Engineering Lecturer Relationship Specialty Start Date End Date Jessica Clark MD [address] [facility] [place] [address] PCP - General Internal Medicine 01/06/22 Mechanical Engineering Lecturer Relationship Specialty Start Date End Date Jessica Clark MD [address] [facility] [place] [address] PCP - General Internal Medicine 01/06/22 Mechanical Engineering Lecturer Relationship Specialty Start Date End Date Jessica Clark MD [address] [facility] [place] [address] PCP - General Internal Medicine 01/06/22 Mechanical Engineering Lecturer Relationship Specialty Start Date End Date Jessica Clark MD [address] [facility] [place] [address] PCP - General Internal Medicine 01/06/22 Team Status: Active Member Role Status Dates Dr. Parviz Ontiveros MD Family Provider Active Dr. Jessica Clark MD Primary Care Provider Active Team Status: Inactive Member Role Status Dates Dr. Jessica Clark MD Primary Care Provider Active Dr. Denzel Cody DO Emergency Provider Active Mechanical Engineering Lecturer Relationship Specialty Start Date End Date Jessica Clark MD [address] [facility] [place] [address] PCP - General Internal Medicine 01/06/22 Mechanical Engineering Lecturer Relationship Specialty Start Date End Date Jessica Clark MD [address] [facility] [place] [address] PCP - General Internal Medicine 01/06/22 Mechanical Engineering Lecturer Relationship Specialty Start Date End Date Jessica Clark MD [address] [facility] [place] [address] PCP - General Internal Medicine 01/06/22 Mechanical Engineering Lecturer Relationship Specialty Start Date End Date Jessica Clark MD [address] [facility] [place] [address] PCP - General Internal Medicine 01/06/22 Mechanical Engineering Lecturer Relationship Specialty Start Date End Date Jessica Clark MD [address] [facility] [place] [address] PCP - General Internal Medicine 01/06/22 Mechanical Engineering Lecturer Relationship Specialty Start Date End Date Jessica Clark MD [address] [facility] [place] [address] PCP - General Internal Medicine 01/06/22 Mechanical Engineering Lecturer Relationship Specialty Start Date End Date Jessica Clark MD [address] [facility] [place] [address] PCP - General Internal Medicine 01/06/22 Mechanical Engineering Lecturer Relationship Specialty Start Date End Date Jessica Clark MD [address] [facility] [place] [address] PCP - General Internal Medicine 01/06/22 Mechanical Engineering Lecturer Relationship Specialty Start Date End Date Jessica Clark MD [address] [facility] [place] [address] PCP - General Internal Medicine 02/17/20 08/25/21 Mechanical Engineering Lecturer Relationship Specialty Start Date End Date Jessica Clark MD [address] [facility] [place] [address] PCP - General Internal Medicine 02/17/20 08/25/21 Mechanical Engineering Lecturer Relationship Specialty Start Date End Date Jessica Clark MD [address] [facility] [place] [address] PCP - General Internal Medicine 01/06/22 Delmar Gallegos, RANDELL [address] [place] [address] Primary Care Glass Worker 03/17/24 Mechanical Engineering Lecturer Relationship Specialty Start Date End Date Jessica Clark MD [address] [facility] [place] [address] PCP - General Internal Medicine 01/06/22 03/18/24 Delmar Gallegos, RN [address] [place] [address] Primary Care Glass Worker 03/17/24 Mechanical Engineering Lecturer Relationship Specialty Start Date End Date Delmar Gallegos, RN [address] [place] [address] Primary Care Glass Worker 03/17/24 Mechanical Engineering Lecturer Relationship Specialty Start Date End Date Delmar Gallegos, RN [address] [place] [address] Primary Care Glass Worker 03/17/24 Mechanical Engineering Lecturer Relationship Specialty Start Date End Date Delmar Gallegos, RN [address] [place] [address] Primary Care Glass Worker 03/17/24 Mechanical Engineering Lecturer Relationship Specialty Start Date End Date Delmar Gallegos, RN [address] [place] [address] Primary Care Glass Worker 03/17/24 Mechanical Engineering Lecturer Relationship Specialty Start Date End Date Jessica Clark MD [address] [place] [address] PCP - General Internal Medicine 01/06/22 03/18/24 Delmar Gallegos RN [address] [place] [address] Primary Care Glass Worker 03/17/24 Mechanical Engineering Lecturer Relationship Specialty Start Date End Date Jessica Clark MD [address] [place] [address] PCP - General Internal Medicine 04/08/24 Delmar Gallegos RN [address] [place] [address] Primary Care Glass Worker 03/17/24 Mechanical Engineering Lecturer Relationship Specialty Start Date End Date Jessica Clark MD [address] [place] [address] PCP - General Internal Medicine 04/08/24 Roberta Rascon PA-C [address] [place] [address] [employer]ankshaft Balancer Family Medicine 04/27/24 Angélica Morataya APRN.CNP [address] [place] [address] [employer] Balancer Internal Medicine 04/27/24 Zoya De PA-C [address] [place] [address] [employer] Family Medicine 04/27/24 Mechanical Engineering Lecturer Relationship Specialty Start Date End Date Jessica Clark MD [address] [place] [address] PCP - General Internal Medicine 04/08/24 Roberta Rascon PA-C [address] [place] [address] [employer] Family Medicine 04/27/24 Angélica Morataya APRN.OUTPATIENT PHYSICAL THERAPIST [address] [place] [address] [employer] Balancer Internal Medicine 04/27/24 Zoya De PA-C [address] [place] [address] [employer] Family Medicine 04/27/24 Mechanical Engineering Lecturer Relationship Specialty Start Date End Date Jessica Clark MD [address] [place] [address] PCP - General Internal Medicine 04/08/24 Roberta Rascon PA-C [address] [place] [address] [employer] Family Medicine 04/27/24 Angélica Morataya APRN.OUTPATIENT PHYSICAL THERAPIST [address] [place] [address] [employer]ancer Internal Medicine 04/27/24 Zoya De PA-C [address] [place] [address] [employer] Family Medicine 04/27/24 Mechanical Engineering Lecturer Relationship Specialty Start Date End Date Jessica Clark MD [address] [facility] [place] [address] PCP - General Internal Medicine 04/08/24 Angélica Morataya APRN.OUTPATIENT PHYSICAL THERAPIST [address] [facility] [place] [address] Crankshaft Balancer Internal Medicine 04/27/24 Mechanical Engineering Lecturer Relationship Specialty Start Date End Date Jessica Clark MD [address] [facility] [place] [address] PCP - General Internal Medicine 04/08/24 Angélica Morataya APRN.OUTPATIENT PHYSICAL THERAPIST [address] [place] [address] Crankshaft Balancer Internal Medicine 04/27/24 Mechanical Engineering Lecturer Relationship Specialty Start Date End Date Jessica Clark MD [address] [facility] [place] [address] PCP - General Internal Medicine 04/08/24 Angélica Morataya APRN.OUTPATIENT PHYSICAL THERAPIST [address] [place] [address] Crankshaft Balancer Internal Medicine 04/27/24 Mechanical Engineering Lecturer Relationship Specialty Start Date End Date Jessica Clark MD [address] [facility] [place] [address] PCP - General Internal Medicine 04/08/24 Angélica Morataya APRN.OUTPATIENT PHYSICAL THERAPIST [address] [place] [address] Crankshaft Balancer Internal Medicine 04/27/24 Mechanical Engineering Lecturer Relationship Specialty Start Date End Date Jessica Clark MD [address] [facility] [place] [address] PCP - General Internal Medicine 04/08/24 Angélica Morataya APRN.OUTPATIENT PHYSICAL THERAPIST [address] [facility] [place] [address] Crankshaft Balancer Internal Medicine 04/27/24 Mechanical Engineering Lecturer Relationship Specialty Start Date End Date Jessica Clark MD [address] [facility] [place] [address] PCP - General Internal Medicine 04/08/24 Angélica Morataya APRN.OUTPATIENT PHYSICAL THERAPIST [address] [place] [address] Crankshaft Balancer Internal Medicine 04/27/24 Mechanical Engineering Lecturer Relationship Specialty Start Date End Date Jessica Clark MD [address] [facility] [place] [address] PCP - General Internal Medicine 04/08/24 Angélica Morataya APRN.OUTPATIENT PHYSICAL THERAPIST [address] [place] [address] Crankshaft Balancer Internal Medicine 04/27/24 Mechanical Engineering Lecturer Relationship Specialty Start Date End Date Jessica Clark MD [address] [facility] [place] [address] PCP - General Internal Medicine 04/08/24 Angélica Morataya APRN.OUTPATIENT PHYSICAL THERAPIST [address] [place] [address] Crankshaft Balancer Internal Medicine 04/27/24 Mechanical Engineering Lecturer Relationship Specialty Start Date End Date Jessica Clark MD [address] [facility] [place] [address] PCP - General Internal Medicine 04/08/24 Angélica Morataya APRN.[facility] [address] [place] [address] Crankshaft Balancer Internal Medicine 04/27/24 FOR RECORDS PERTAINING TO PATIENTS WHO ARE OR HAVE BEEN ENROLLED IN A CHEMICAL DEPENDENCY/SUBSTANCEABUSE PROGRAM, SOME INFORMATION MAY BE OMITTED. This clinical summary was aggregated from multiple sources. Caution should be exercised in using it in the provision of clinical care. This summary normalizes information from multiple sources, and as a consequence, information in this document may materially change the coding, format and clinical context of patient data. In addition, data may be omitted in some cases. CLINICAL DECISIONS SHOULD BE BASED ON THE PRIMARY CLINICAL RECORDS. [facility] [employer] [facility]. provides no warranty or guarantee of the accuracy or completeness of information in this document.
[2025-02-10 06:23] LABS: Troponin T High Sens 2 HR 53 ng/L (<=14)
--- NOTE | 2025-02-10 06:40 | EX.ED.DYSGE1 ---
HPI History of Present Illness Chief Complaint: Chest Pain Informant: patient and family Narrative Narrative: Patient is a 74-year-old female with past medical history of chronic kidney disease type 2 diabetes hypertension hyperlipidemia tobacco abuse and known CAD with stent placement roughly 13 years ago. The patient states she has had mild intermittent chest discomfort over the past 2 weeks. However this evening around 10 PM she developed increasing chest pain. She described as more of a pressure sensation and states that there was mild shortness of breath and nausea associated with it. She states she has not followed with a reheater helper for the past few years as her reheater helper moved out of town. She states that because the discomfort was more intense than it has been over the past few weeks she was concerned this could be cardiac in nature and therefore comes in for evaluation Patient was given 4 baby aspirin and 1 sublingual nitro by EMS and she does report improvement of her symptoms upon arrival [facility] Medical History Tobacco abuse Fatigue Syncope Fibromyalgia History of IBS Heartburn Shortness of breath on exertion History of pain when walking History of edema Wears dentures Wears glasses Cancer Anxiety Thyroid disease Restless legs Smoker CPAP (continuous positive airway pressure) dependence History of stress test History of echocardiogram Cardiology follow-up encounter Atrial fibrillation Myocardial infarct HLD (hyperlipidemia) Kidney stones CKD (chronic kidney disease) stage 3, GFR 30-59 ml/min Hypothyroidism Essential hypertension Presence of stent in coronary artery (~10/29/12) Atherosclerotic heart disease of [place] coronary artery without angina pectoris Osteoarthritis Heart murmur High cholesterol Arthritis Facet arthropathy, lumbar History of chest pain Home Medications ?Medication ?Instructions ?Recorded ?Last Taken ?Type levothyroxine 100 mcg tablet 100 mcg PO DAILY THYROID 12/28/20 03/05/24 History carvedilol 25 mg tablet 25 mg PO BID bp 08/12/21 03/05/24 History ergocalciferol (vitamin D2) 1,250 1,250 mcg PO Q7D 02/13/24 03/04/24 History mcg (50,000 unit) capsule aspirin 81 mg tablet,delayed 81 mg PO DAILY 02/26/24 02/26/24 History release (Adult Low Dose Aspirin) amlodipine 5 mg tablet 5 mg PO DAILY #30 tabs 03/14/24 Unknown Rx levofloxacin 500 mg tablet 500 mg PO .q48 #4 tabs 03/14/24 Unknown Rx Allergy/AdvReac Type Severity Reaction Status Date / Time Penicillins Allergy Severe Rash Verified 02/10/25 03:37 Anesthetics - Amide Type - Allergy Swelling Verified 02/10/25 03:37 Select A Anesthetics - Nubia Type- Allergy Swelling Verified 02/10/25 03:37 Parabens Iodinated Contrast Media Allergy Anaphylaxis Verified 02/10/25 03:37 Antihistamines - Alkylamine AdvReac Unknown heart Verified 02/10/25 03:37 racing enalapril AdvReac Unknown myalgias Verified 02/10/25 03:37 levothyroxine sodium (From AdvReac Unknown fatigue Verified 02/10/25 03:37 Synthroid) metoprolol (From Lopressor) AdvReac Unknown myalgias Verified 02/10/25 03:37 Family History Mother Heart disease Hypertension HLD (hyperlipidemia) Father Cancer Patient states spider cancer. Surgical History History of esophagogastroduodenoscopy (EGD) History of cardiac catheterization Hx of eye surgery History of cystoscopy History of tooth extraction History of D&C History of tonsillectomy Presence of coronary angioplasty implant and graft (~10/29/12) Social History household members: spouse Smoking Status: Heavy Smoker (>10/day) how long ago did patient quit smoking: Ongoing tobacco use since teenager, 1/2 ppd. alcohol intake: never substance use type: does not use caffeine: Yes Type: carbonated beverages, coffee and tea what type of physical activity do you participate in: none ROS ROS ED Constitutional Constitutional ED: Denies chills or fever(s) Eyes Eyes: Denies blurry vision or change in vision ENT ENT ED: Denies sore throat Cardiovascular Cardiovascular: Reports chest pain; Denies palpitations or racing heartbeat Respiratory/Chest Respiratory/Chest: Reports dyspnea; Denies cough Gastrointestinal Gastrointestinal: Reports nausea; Denies abdominal pain, diarrhea or vomiting Genitourinary Genitourinary ED: Denies dysuria Musculoskeletal Musculoskeletal: Denies back pain or myalgias Integumentary Denies rash Neurologic Neurologic: Denies headache(s) Hematologic/Lymphatic Hematologic/Lymphatic: Denies easy bleeding or easy bruising EXAM Physical Exam Const Vital Signs: 02/10/25 03:30 02/10/25 03:33 02/10/25 04:29 Temperature 98.6 F Temperature Source Oral Pulse Rate 64 68 Respiratory Rate 20 H 11 L Respiratory Pattern Normal Blood Pressure 176/65 H 175/65 H Blood Pressure Mean 102 101 Pulse Ox 97 99 Oxygen Delivery Method Room Air Room Air 02/10/25 05:00 02/10/25 06:00 Temperature Temperature Source Pulse Rate 59 L 55 L Respiratory Rate 16 14 Respiratory Pattern Blood Pressure 170/62 H 177/64 H Blood Pressure Mean 98 101 Pulse Ox 95 97 Oxygen Delivery Method Room Air Room Air Positive well nourished, well developed and obese General Appearance ED: well developed; Negative for pallor Nutritional Appearance: obese HEENT HEENT Narrative: Normocephalic atraumatic Eyes PERRL and EOMs intact bilaterally General Eye ED: Negative for scleral icterus Neck supple and no JVD Chest Wall palpation of chest normal Chest Narrative: No bony deformity or subcutaneous emphysema noted No reproducible pain with palpation Resp normal respiratory effort Resp Narrative: Breath sounds are diminished throughout with faint expiratory wheeze and rhonchi consistent with history of smoking; no signs of respiratory distress Cardio regular rate and regular rhythm Rate: other Other Details: Heart is regular rate and rhythm No JVD noted Radial and carotid pulses are equal and symmetric GI normal to inspection, nondistended, normoactive bowel sounds, non-tender, non-distended and no masses GI Narrative: No voluntary guarding rigidity or pulsatile mass Auscultation: normoactive bowel sounds Palpation: soft Extremity Extremity Narrative: Trace pitting edema to the bilateral lower extremities that is equal and symmetric Negative Homans' sign bilaterally Neuro oriented x3, CN's II-XII intact bilaterally and no sensory deficits noted Sensorium / Orientation: alert Motor Exam: strength 5/5 throughout Psych mental status grossly normal Skin no rashes or lesions noted General Skin Exam: Negative for jaundice or pallor MDM MDM MDM Narrative Medical decision making narrative: Patient arrived to the ER hypertensive but has a past medical history of this. She has multiple risk factors for coronary artery disease and had stents placed multiple years ago. With the report of intermittent chest discomfort worsening this evening patient could have been dealing with unstable angina leading to a potential Prinzmetal's angina or coronary infarct. Secondary to this basic blood work was obtained as well as a chest x-ray to rule out lung pathology. Chest x-ray revealed no acute lung pathology such as pneumonia or pneumothorax or pleural effusion. Initial troponin is normal at 10 but the 2 hours increased by 43 points to a value of 53. This large elevation to her troponin from initial coupled with signs of ischemia on EKG as well as multiple risk factors for coronary artery disease places her at high risk for an adverse event. Therefore I feel her safest option would be admission to the hospital for continued monitoring and further cardiac workup especially as patient states she has not had a cardiac workup for multiple years. The patient did request potential transfer to [facility] as she had her stents placed at that facility multiple years ago. Therefore he reached out to [facility] and both have significant patient's waiting for bed assignments and therefore the patient is comfortable seen at our facility for continued cardiac workup. Please note that upon arrival with the significant ST segment depressions I did send the EKG to the reheater helper on-call Dr. Flores who confirmed that there is no acute STEMI present History & Record Review Discussion w/independent historian: Patient and Family Lab Data Attestation: I reviewed the patient's lab results. Labs: Laboratory Results - last 24 hr 02/10/25 02/10/25 03:18 05:50 WBC 11.5 H RBC 4.52 Hgb 13.1 Hct 39.4 MCV 87.2 MCH 29.0 MCHC 33.2 RDW Std Deviation 44.7 H RDW Coeff of Souleymane 13.9 Plt Count 273 MPV 9.0 Immature Gran % (Auto) 0.400 Neut % (Auto) 73.5 H Lymph % (Auto) 17.1 L D[place] % (Auto) 6.1 Eos % (Auto) 2.4 Baso % (Auto) 0.5 Absolute Neuts (auto) 8.4 H Absolute Lymphs (auto) 1.96 Nucleated RBC % 0 Sodium 137 Potassium 4.2 Chloride 103 Carbon Dioxide 21.0 Anion Gap 13 BUN 32 H Creatinine 1.84 H Estim Creat Clear Calc 22.82 L Est GFR (MDRD) Non-Af 28 L BUN/Creatinine Ratio 17.4 Glucose 192 H Calcium 10.0 Magnesium 2.4 H Troponin T High Sens 10 Troponin T Hi Sens 2 Hr 53 H Radiography Diagnostic Testing: Clinical Impression(s) from Imaging Studies Chest X-Ray 02/10/25 03:49 IMPRESSION: No acute process is identified in the chest. Reading Location: [facility] Chest x-ray as interpreted by the emergency medicine physician reveals no acute infiltrate or pneumothorax or pleural effusion Management Discussion w/another healthcare provider: Hospitalist Discharge Plan Dx/Rx/DC Orders Clinical Impression: Chest pain, Elevated troponin, CKD (chronic kidney disease) stage 3, GFR 30-59 ml/min, Hypertension, Hyperlipidemia, Type 2 diabetes mellitus, Coronary artery disease Disposition Disposition: Acute Care Hospital [facility]
--- NOTE | 2025-02-10 06:43 | PCM.HP.STD ---
HPI - General General Date of Admission: 02/10/25 Date of Service: 02/10/25 Chief Complaint: Chest pain HPI Narrative GAYLE CHO, is a 74 F who presents to the emergency room chief complaint of chest pain. Patient has significant past medical history of chest pain with prior stent placed in 2011 and subsequent catheterization 6 months later for in-stent stenosis where another stent was placed at that time. Patient does have a history of being a pack-a-day smoker and continues to be so. She had quit for a few years but started again 3 to 4 years ago after her . Patient chest pain was described as substernal in nature radiating to the jaw. She did receive nitroglycerin and EKG was done which showed some ST depressions in lateral leads but no ST elevation was noted. Initial troponin was negative at 10 but subsequent troponin increased to 53. Due to cardiac disease history and elevation of troponin patient will be admitted to PCU and cardiology consult obtained. Patient does wish to remain full code as discussed and verified with the patient. [facility] Medical History Fatigue Syncope Fibromyalgia History of IBS Heartburn Shortness of breath on exertion History of pain when walking History of edema Wears dentures Wears glasses Cancer Anxiety Thyroid disease Restless legs Smoker CPAP (continuous positive airway pressure) dependence History of stress test History of echocardiogram Cardiology follow-up encounter Atrial fibrillation Myocardial infarct HLD (hyperlipidemia) Kidney stones CKD (chronic kidney disease) stage 3, GFR 30-59 ml/min Hypothyroidism Essential hypertension Presence of stent in coronary artery (~10/29/12) Atherosclerotic heart disease of [place] coronary artery without angina pectoris Osteoarthritis Heart murmur High cholesterol Arthritis Facet arthropathy, lumbar History of chest pain Home Medications ?Medication ?Instructions ?Recorded ?Last Taken ?Type levothyroxine 100 mcg tablet 100 mcg PO DAILY THYROID 12/28/20 03/05/24 History carvedilol 25 mg tablet 25 mg PO BID bp 08/12/21 03/05/24 History ergocalciferol (vitamin D2) 1,250 1,250 mcg PO Q7D 02/13/24 03/04/24 History mcg (50,000 unit) capsule aspirin 81 mg tablet,delayed 81 mg PO DAILY 02/26/24 02/26/24 History release (Adult Low Dose Aspirin) amlodipine 5 mg tablet 5 mg PO DAILY #30 tabs 03/14/24 Unknown Rx levofloxacin 500 mg tablet 500 mg PO .q48 #4 tabs 03/14/24 Unknown Rx Allergy/AdvReac Type Severity Reaction Status Date / Time Penicillins Allergy Severe Rash Verified 02/10/25 03:37 Anesthetics - Amide Type - Allergy Swelling Verified 02/10/25 03:37 Select A Anesthetics - [place]ub[place] Type- Allergy Swelling Verified 02/10/25 03:37 Parabens Iodinated Contrast Media Allergy Anaphylaxis Verified 02/10/25 03:37 Antihistamines - Alkylamine AdvReac Unknown heart Verified 02/10/25 03:37 racing enalapril AdvReac Unknown myalgias Verified 02/10/25 03:37 levothyroxine sodium (From AdvReac Unknown fatigue Verified 02/10/25 03:37 Synthroid) metoprolol (From Lopressor) AdvReac Unknown myalgias Verified 02/10/25 03:37 Family History Mother Heart disease Hypertension HLD (hyperlipidemia) Father Cancer Patient states spider cancer. Surgical History History of esophagogastroduodenoscopy (EGD) History of cardiac catheterization Hx of eye surgery History of cystoscopy History of tooth extraction History of D&C History of tonsillectomy Presence of coronary angioplasty implant and graft (~10/29/12) Social History household members: spouse Smoking Status: Heavy Smoker (>10/day) how long ago did patient quit smoking: Ongoing tobacco use since teenager, 05/22 ppd. alcohol intake: never substance use type: does not use caffeine: Yes Type: carbonated beverages, coffee and tea what type of physical activity do you participate in: none ROS Constitutional Constitutional: Denies chills or fever(s) Eyes Eyes: Denies blurry vision ENT HEENT: Denies abnormal hearing Cardiovascular Cardiovascular: Reports chest pain Respiratory/Chest Respiratory/Chest: Denies shortness of breath at rest Gastrointestinal Gastrointestinal: Denies abdominal pain Genitourinary Genitourinary: Denies dysuria Musculoskeletal Musculoskeletal: Denies back pain Integumentary Integumentary: Denies dry skin Neurologic Neurologic: Denies abnormal speech Psychiatric Psychiatric: Reports anxiety Vital Signs Vital Signs Vital Signs: 02/10/25 03:30 02/10/25 03:33 02/10/25 04:29 Temperature 98.6 F Temperature Source Oral Pulse Rate 64 68 Respiratory Rate 20 H 11 L Respiratory Pattern Normal Blood Pressure 176/65 H 175/65 H Blood Pressure Mean 102 101 Pulse Ox 97 99 Oxygen Delivery Method Room Air Room Air 02/10/25 05:00 02/10/25 06:00 Temperature Temperature Source Pulse Rate 59 L 55 L Respiratory Rate 16 14 Respiratory Pattern Blood Pressure 170/62 H 177/64 H Blood Pressure Mean 98 101 Pulse Ox 95 97 Oxygen Delivery Method Room Air Room Air Weight Weight: 155 lb 13.869 oz Body Mass Index (BMI) 30.4 Physical Exam Const alert, oriented x3 and no apparent distress General Appearance: cooperative and well developed HEENT normocephalic and head/scalp atraumatic Eyes PERRL Neck no lymphadenopathy Lymph Lymphatic: no lymphadenopathy noted Resp normal respiratory effort, normal air movement and clear to auscultation bilaterally Cardio regular rate, regular rhythm, S1 normal heart sound, S2 normal heart sound and no murmurs GI normal to inspection, nondistended, normoactive bowel sounds Extremity normal capillary refill Skin General Skin Exam: no breakdown Neuro no focal motor deficits and no sensory deficits noted Psych thought process normal Results Lab / Micro Data 02/10/25 03:18 02/10/25 03:18 Labs: Laboratory Results - last 24 hr 02/10/25 03:18: WBC 11.5 H, RBC 4.52, Hgb 13.1, Hct 39.4, MCV 87.2, MCH 29.0, MCHC 33.2, RDW Std Deviation 44.7 H, RDW Coeff of [place] 13.9, Plt Count 273, MPV 9.0, Immature Gran % (Auto) 0.400, Neut % (Auto) 73.5 H, Lymph % (Auto) 17.1 L, Humphreys % (Auto) 6.1, Eos % (Auto) 2.4, Baso % (Auto) 0.5, Absolute Neuts (auto) 8.4 H, Absolute Lymphs (auto) 1.96, Nucleated RBC % 0, Sodium 137, Potassium 4.2, Chloride 103, Carbon Dioxide 21.0, Anion Gap 13, BUN 32 H, Creatinine 1.84 H, Estim Creat Clear Calc 22.82 L, Est GFR (MDRD) Non-Af 28 L, BUN/Creatinine Ratio 17.4, Glucose 192 H, Calcium 10.0, Magnesium 2.4 H, Troponin T High Sens 10 02/10/25 05:50: Troponin T Hi Sens 2 Hr 53 H Imaging Radiology Impression Chest X-Ray 02/10/25 03:49 IMPRESSION: No acute process is identified in the chest. Reading Location: [facility] Assessment & Plan Assessment/Plan (1) Coronary artery disease: (2) Hyperlipidemia: (3) Hypertension: (4) Elevated troponin: (5) Chest pain: PLAN: 1 chest pain with elevated troponin?acute coronary syndrome/NSTEMI?admit patient to progressive care unit?continue to cycle cardiac enzymes, consult cardiology as patient will likely need heart catheterization. Continue nitroglycerin and heparin by weight protocol and continue daily aspirin patient did receive aspirin by the squad in the field. 2. Hyperlipidemia?continue statin medication 3. Hypertension May continue home antihypertensive agents, may need to add as needed as we monitor her further 4. DVT prophylaxis?patient will be heparinized 5. CODE STATUS full verified with patient Charges/Coding Visit Charges Inpatient E&M: 87141 Init Hosp L2
--- OUTSIDE RECORDS SUMMARY | 2025-02-10 07:10 | XMS RPT_ITS | CCD ---
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, Angélica Unavailable Zoya De PA-C Unavailable [phone] GANTA, JESSICA Primary Care Unavailable OLDER, ANGÉLICA [...] Drug Allergy 08-09-19 08 Other: See Comments [facility] Repository (20 sources) metoprolol; Translations: [METOPROLOL TARTRATE] Drug Allergy 08-09-19 08 Other: See Comments [facility] Repository (20 sources) Penicillins; Translations: [PENICILLINS] Propensity to adverse reactions to drug (disorder) 08-09-19 08 Rash [facility] Repository (20 sources) thyroxine; Translations: [LEVOTHYROXINE SODIUM] Drug Allergy 08-09-19 08 Other: See Comments [facility] Rep[facility] (20 sources) ANTIHISTIMINE; Translations: [ANTIHISTIMINE] Propensity to adverse reactions to drug (disorder) 01-11-20 17 Intolerance [facility] (4 sources) Metoprolol Drug Allergy 08-13-19 22 myalgias [facility] (5 sources) Iodinated Contrast Media; Translations: [Iodinated Contrast Media] Allergy to substance 08-13-19 22 Anaphylaxis [facility] (5 sources) Antihistamines - Alkylamine; Translations: [Antihistamines - Alkylamine] Propensity to adverse reactions 08-13-19 22 heart racing [facility] (3 sources) ANESTETICS Allergy to substance 08-13-19 22 Swelling [facility] Work Phone: (20 sources) Erythromycin; Translations: [ERYTHROMYCIN] Drug Allergy 10-09-19 19 Vomiting [facility] (20 sources) Iodine; Translations: [IODINE] Drug Allergy 01-27-20 Swelling, Shortness of Breath [facility] (20 sources) Anesthetics - Amide Type - Select Amino Amides; Translations: [ANESTHETICS - AMIDE TYPE - SELECT AMINO AMIDES] Propensity to adverse reactions to drug 07-12-19 Mental Status Change [facility] (1 source) Anesthetics - Nubia Type- Parabens Allergy to substance 01-05-20 Swelling [facility] (1 source) Metoprolol Drug Allergy 03-11-20 [facility] Repository (1 source) Anesthetics - Amide Type - Select A Drug allergy (disorder) 03-11-20 [facility] Repository (1 source) Anesthetics - Nubia Type- Parabens Drug allergy (disorder) 03-11-20 [facility] Repository Medications Current Medications Medication Drug [...] on above: Take 1 capsule by mo [facility] twice daily for 7 days. cholecalciferol 0.025 [...] Take 1 tablet by mouth twice weekly [id number], then decrease to 1 tablet weekly. 16 [...] on above: Take 1 capsule by mo [facility] once daily. Lactobacillus acidophilus (19 sources) Lactobacillus [...] Comment on above: Take 1 tablet by [facility] once daily. Take on empty stomach. For [...] Comment on above: Take 1 capsule by [facility] twice daily with meals for 10 days. [...] Drug Class(es) Dates Sig (Normalized) Sig (Original) [id number] 200 actuat albuterol 0.09 mg/actuat metered dose [...] 20 mg/ml oral solution (20 sources) Uncompetitive O-hjxoec-Q-aspartate Receptor Antagonist, Sigma-1 Agonist End: 01-02-20 take [...] disease (20 sources) Atherosclerotic heart disease of [place] coronary artery without angina pectoris; Translations: [Coronary [...] (2 sources) Patient encounter status; Translations: [Other shelter (current) drug therapy] Episodic Other aftercare (1 source) Other shelter (current) drug therapy; Translations: [Medication management] Onset: [...] CNOV Office Visit (INTMWS ) GAYLE CHO ([id number]) 1950 F Date Time Provider Department 02/09/25 [...] multiple complaints on diagnostic results. Recording using DAQRI software for draft documentation of the visit was discussed with the patient/authorized access representative; all questions welcomed and answered. Patient/authorized access representative agreed to proceed Lab Results Review: [...] and needs to schedule with them at [facility]. Has not scheduled with nephrology as ordered. [...] (NSTEMI), subendocardial infarction, initial episode of care ([facility]) 02/20/2012 Type II or unspecified [...] Take 1 tablet by mouth twice weekly [id number], then decrease to 1 tablet weekly. CPAP [...] mood depen (more content not included)... Normal [facility] 02-02-2025 [facility] Telephone ([facility]) GAYLE CHO ([id number]) 1950 F Date Time Provider Department 02/02/25 ANGÉLICA MORATAYA [facility] During your visit today, we recorded the [...] (L) Low ! Abnormal MASSIMO Medina, Angélica, MARGO.OTR TRUCK DRIVER 02/05/2025 7:45 AM Signed I put in a previous result follow up, I wanted her to see a health professional as her LARA was positive and could [...] until after her appointment with Angélica Morataya CUTTER FINISHER. Fanny Vargas RN Allergies As of Date: [...] Date Reviewed: 01/12/2025 Reviewed by: Angélica Morataya APRN.OTR TRUCK DRIVER - Fully Assessed Reason for Visit: Results, Lab [1201] echo results [Other] Primary Visit Diagnosis:CKD (chronic kidney disease) stage 4, GFR 15-29 ml/min (HCC) [N18.4] Other Visit Diagnoses:Uncontrolled hypertension [I10] Diastolic dysfunction [I51.89] Order(s):CONSULT TO NEPHROLOGY [5213] Order #: [id number]: 1 FUTURE CONSULT TO CARDIOLOGY [9001] Order #: [id number]: 1 FUTURE Prescriptions as of 02/05/2025 - [...] Take 1 tablet by mouth twice weekly [id number], then decrease to 1 tablet weekly. - CPAP - aspirin, (more content not included)... Normal [facility] 25(OH)D3 SerPl-ncon 2024 25-hydroxyvitamin D3 [Mass/Vol] 31.0 ng/mL Normal 31.0-80.0 [facility] Comment on above: Order Comment: Speci men Type: BLOOD SPECIMENOrdering Facility: [facility] Address: [address] [place] [address] Performed By: #### 1 989-3 ####[facility] LABIA [id number] [place] [address] [place] ALBUMIN/CREATININE RATIO, UR INEon 01-23-2025 Albumin DL <= 20 mg/L (U) [Mass/Vol] 225.6 mg/L Normal [facility] Comment on above: Order Comment: Speci men Type: URINE SPECIMENOrdering Facility: [facility] Address: [address] [place] [address] Performed By: #### U ACR ####[facility] LABCLIA [id number] [place] [id number] [place] Albumin/Creatinine (U) [Mass ratio] 316 mg/g High <30 [facility] Comment on above: Order Comment: Speci men Type: URINE SPECIMENOrdering Facility: [facility] Address: [address] [place] [address] Result Comment: Adul t Male and Female Nephrotic Criteria: <30 mg/g is considered normal to mildly increased 30-300 mg/g is considered moderately increased >300 mg/g is considered severely increased KDIGO. (2013). KDIGO 2012 Clinical Practice Guideline for the Evaluation and Management of Chronic Kidney Disease. Official Journal of the International Society of Nephrology, 3(1), 1-150. Performed By: #### U ACR ####[facility] LABCLIA [id number] [place] [address] [place] Creatinine (U) [Mass/Vol] 71.3 mg/dL Normal 20.0-300.0 [facility] Comment on above: Order Comment: Speci men Type: URINE SPECIMENOrdering Facility: [facility] Address: [address] [place] [address] Performed By: #### U ACR ####[facility] LABIA [id number] [place] [address] [place] LARA BY IFA SCREENon 01-24-20 25 Nuclear Ab pattern (S) [Interp] Nuclear homogeneous Normal [facility] Comment on above: Order Comment: Speci men Type: BLOOD SPECIMENOrdering Facility: [facility] Address: [address] [place] [address] Performed By: #### A NAIFS ####[facility] LABIA [id number] [place] [address] [place] Nuclear Ab Ql (S) Positive Abnormal Negative [facility] Comment on above: Order Comment: Speci men Type: BLOOD SPECIMENOrdering Facility: [facility] Address: [address] [place] [address] Result Comment: Anti -nuclear antibody test is used as an aid in diagnosis of systemic autoimmune diseases. Where positive and clinically warranted, follow-up using disease-specific testing is recommended. Low positive titers are not uncommon with advanced age, certain chronic infections, and malignancies among others. Test methodology: Indirect fluorescence immunoassay (IFA) using HEp-2 cells. 1:160 Performed By: #### A NAIFS ####[facility] LABCLIA [id number] [place] [address] [place] CBC panel Auto (Bld)on 01-23 Erythrocyte distribution width (RBC) [Ratio] 14.2 % Normal 11.5-15.0 [facility] Comment on above: Order Comment: Speci men Type: BLOOD SPECIMENOrdering Facility: [facility] Address: [address] [place] [address] Performed By: #### 5 8410-2 ####[facility] [id number] [address] [place] Hematocrit (Bld) [Volume fraction] 37.4 % Normal 36.0-46.0 [facility] Comment on above: Order Comment: Speci men Type: BLOOD SPECIMENOrdering Facility: [facility] Address: [address] [place] [address] Performed By: #### 5 8410-2 ####[facility] [id number] [address] [place] Hemoglobin (Bld) [Mass/Vol] 12.4 g/dL Normal 11.5-15.5 [facility] Comment on above: Order Comment: Speci men Type: BLOOD SPECIMENOrdering Facility: [facility] Address: [address] [place] [address] Performed By: #### 5 8410-2 ####[facility] [id number] [place] [address] [place] MCH (RBC) [Entitic mass] 29.3 pg Normal 26.0-34.0 [facility] Comment on above: Order Comment: Speci men Type: BLOOD SPECIMENOrdering Facility: [facility] Address: [address] [place] [address] Performed By: #### 5 8410-2 ####[facility] MILLWNCLIA [id number] [place] [address] [place] MCHC (RBC) [Mass/Vol] 33.2 g/dL Normal 30.5-36.0 [facility] Comment on above: Order Comment: Speci men Type: BLOOD SPECIMENOrdering Facility: [facility] Address: [address] [place] [address] Performed By: #### 5 8410-2 ####[facility] [id number] [place] [address] [place] MCV (RBC) [Entitic vol] 88.4 fL Normal 80.0-100.0 [facility] Comment on above: Order Comment: Speci men Type: BLOOD SPECIMENOrdering Facility: [facility] Address: [address] [place] [address] Performed By: #### 5 8410-2 ####[facility] [id number] [place] [address] [place] Nucleated RBC (Bld) [#/Vol] 10*3/uL Normal <0.01 [facility] Comment on above: Order Comment: Speci men Type: BLOOD SPECIMENOrdering Facility: [facility] Address: [address] [place] [address] Performed By: #### 5 8410-2 ####[facility] [id number] [address] [place] Platelet mean volume (Bld) [Entitic vol] 8.5 fL Low 9.0-12.7 [facility] Comment on above: Order Comment: Speci men Type: BLOOD SPECIMENOrdering Facility: [facility] Address: [address] [place] [address] Performed By: #### 5 8410-2 ####[facility] [id number] [place] [address] [place] Platelets (Bld) [#/Vol] 208 10*3/uL Normal 150-400 [facility] Comment on above: Order Comment: Speci men Type: BLOOD SPECIMENOrdering Facility: [facility] Address: [address] [place] [address] Performed By: #### 5 8410-2 ####[facility] [id number] [place] [address] [place] RBC (Bld) [#/Vol] 4.23 10*6/uL Normal 3.90-5.20 [facility] Comment on above: Order Comment: Speci men Type: BLOOD SPECIMENOrdering Facility: [facility] Address: [address] [place] [address] Performed By: #### 5 8410-2 ####[facility] [id number] [place] [address] [place] WBC (Bld) [#/Vol] 10.28 10*3/uL Normal 3.70-11.00 [facility] Comment on above: Order Comment: Speci men Type: BLOOD SPECIMENOrdering Facility: [facility] Address: [address] [place] [address] Performed By: #### 5 8410-2 ####[facility]HNIA [id number] [place] [address] [place] CRP SerPl-mCncon 01-23-2025 CRP [Mass/Vol] 0.6 mg/dL Normal <0.9 [facility] Comment on above: Order Comment: Speci men Type: BLOOD SPECIMENOrdering Facility: [facility] Address: [address] [place] [address] Performed By: #### 2 132-9, 1988-5, 91688-4 ####[facility] LABCLIA [id number] [address] [address] [place] ECHOon 01-23-2025 Echocardiography Echocardiography Rep ort: Transthoracic Echo [facility] Date of service: 01/23/2025 8:41:05 AM 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 OFFICER Ordering physician: ANGÉLICA MORATAYA Exam indication: Abnormal ECG Technologist: Shital Redmond [facility] Interpreting physician: Gage Flores MD PATIENT: Name: [...] * * * Final * * * [employer] : [id number] Normal [facility] HbA1c (Bld)on 01-23-2025 Average glucose Estimated from glycated hemoglobin (Bld) [Mass/Vol] 134 mg/dL Normal [facility] Comment on above: Order Comment: Speci men Type: BLOOD SPECIMENOrdering Facility: [facility] Address: [address] [place] [address] Result Comment: eAG: (Estimated average glucose) is a calculated value from HgbA1c and is access representative of the average blood glucose level in the last 2-3 month period. Performed By: #### 5 5454-3 ####[facility] LABCLIA [id number] [place] [address] [place] HbA1c (Bld) [Mass fraction] 6.3 % High 4.3-5.6 [facility] Comment on above: Order Comment: Speci men Type: BLOOD SPECIMENOrdering Facility: [facility] Address: [address] [place] [address] Result Comment: Amer [place] Diabetes Association guidelines indicate that patients with HgbA1c in the range 5.7-6.4% are at increased risk for development of diabetes, and intervention by lifestyle modification may be beneficial. HgbA1c greater or equal to 6.5% is considered diagnostic of diabetes. Performed By: #### 5 5454-3 ####[facility] LABIA [id number] [place] [address] [place] Renal function 2000 panelon 01-23-2025 Albumin [Mass/Vol] 4.2 g/dL Normal 3.9-4.9 [facility] Comment on above: Order Comment: Speci men Type: BLOOD SPECIMENOrdering Facility: [facility] Address: [address] [place] [address] Performed By: #### 2 4362-6 ####[facility] [id number] [place] [address] [place] Anion gap [Moles/Vol] 9 mmol/L Normal 8-15 [facility] Comment on above: Order Comment: Speci men Type: BLOOD SPECIMENOrdering Facility: [facility] Address: [address] [place] [address] Performed By: #### 2 4362-6 ####[facility]PITALCHARISSELIA [id number] [place] [address] [place] Calcium [Mass/Vol] 10.3 mg/dL High 8.5-10.2 [facility] Comment on above: Order Comment: Speci men Type: BLOOD SPECIMENOrdering Facility: [facility] Address: [address] [place] [address] Performed By: #### 2 4362-6 ####[facility] PATTI MILLTOWNCLIA [id number] [place] [address] [place] Chloride [Moles/Vol] 106 mmol/L Normal 98-107 [facility] Comment on above: Order Comment: Speci men Type: BLOOD SPECIMENOrdering Facility: [facility] Address: [address] [place] [address] Performed By: #### 2 4362-6 ####[facility] MILLTOWNCLIA [id number] [place] [address] [place] CO2 [Moles/Vol] 22 mmol/L Normal 22-30 [facility] Comment on above: Order Comment: Speci men Type: BLOOD SPECIMENOrdering Facility: [facility] Address: [address] [place] [address] Performed By: #### 2 4362-6 ####[facility] MILLTOWNCLIA [id number] [place] [address] [place] Creatinine [Mass/Vol] 2.38 mg/dL High 0.58-0.96 [facility] Comment on above: Order Comment: Speci men Type: BLOOD SPECIMENOrdering Facility: [facility] Address: [address] [place] [address] Performed By: #### 2 4362-6 ####[facility] MILLTOWNCLIA [id number] [place] [address] [place] eGFRcr SerPlBld CKD-EPI 2020 21 mL/min/1.73m??? Low >=60 [facility] Comment on above: Order Comment: Speci men Type: BLOOD SPECIMENOrdering Facility: [facility] Address: [address] [place] [id number] Result Comment: Shana mated Glomerular Filtration Rate [...] actual GFR. Performed By: #### 2 4362-6 ####[facility] [id number] [place] [address] [place] Glucose [Mass/Vol] 145 mg/dL High 74-99 [facility] Comment on above: Order Comment: Nickolas wiggins Type: BLOOD SPECIMENOrdering Facility: [facility] Address: [address] [place] [address] Result Comment: The [place] Diabetes Association (ADA) provides guidance for cutoff [...] Standards of Medical Care in Diabetes 2016, [place] Diabetes Association. Diabetes Care. 2016.39(Suppl 1). Performed By: #### 2 4362-6 ####[facility] [id number] [place] [address] [place] Phosphate [Mass/Vol] 3.9 mg/dL Normal 2.7-4.8 [facility] Comment on above: Order Comment: Nickolas wiggins Type: BLOOD SPECIMENOrdering Facility: [facility] Address: [address] [place] [address] Performed By: #### 2 4362-6 ####[facility] MILLTOWNCLIA [id number] [place] [address] [place] Potassium [Moles/Vol] 5.2 mmol/L High 3.7-5.1 [facility] Comment on above: Order Comment: Speci men Type: BLOOD SPECIMENOrdering Facility: [facility] Address: [address] [place] [address] Performed By: #### 2 4362-6 ####[facility] [id number] [place] [address] [place] Sodium [Moles/Vol] 137 mmol/L Normal 136-144 [facility] Comment on above: Order Comment: Speci men Type: BLOOD SPECIMENOrdering Facility: [facility] Address: [address] [place] [address] Performed By: #### 2 4362-6 ####[facility] [id number] [place] [address] [place] Urea nitrogen [Mass/Vol] 32 mg/dL High 7-21 [facility] Comment on above: Order Comment: Speci men Type: BLOOD SPECIMENOrdering Facility: [facility] Address: [address] [place] [address] Performed By: #### 2 4362-6 ####[facility] [id number] [place] [address] [place] Rheumatoid fact SerPl-aCncon 01-23-2025 Rheumatoid factor Qn [IU]/mL Normal <16 [facility] Comment on above: Order Comment: Speci men Type: BLOOD SPECIMENOrdering Facility: [facility] Address: [address] [place] [address] Performed By: #### 2 132-9, 1988-5, 91174-1 ####[facility] LABCLIA [id number] [address] [place] Vit B12 SerPl-mCncon 025 Cobalamin (Vitamin B12) [Mass/Vol] 420 pg/mL Normal 232-1245 [facility] Comment on above: Order Comment: Speci men Type: BLOOD SPECIMENOrdering Facility: [facility] Address: [address] [place] [address] Performed By: #### 2 132-9, 1987-, 67863-3 ####[facility] LABCLIA [id number] [address] [place] XR CHEST 2V [...] the spine. IMPRESSION: No acute radiographic abnormality. Medical Information Officer: [facility] Transcribe Date/Time: Jan 15 2025 4:10P Dictated by : AARON PETERS MD This examination was interpreted and the report reviewed and electronically signed by: AARON PETERS MD on Jan 15 2025 4:15PM EST [id number] Normal [facility] XR HIP CARTER 5V PEL+ AP/LAT EA [...] intact. COMBINED IMPRESSION: Degenerative changes as described. Medical Information Officer: [facility] Transcribe Date/Time: Jan 21 2025 8:19P Dictated by : MISHEL SORIA MD This examination was interpreted and the report reviewed and electronically signed by: MISHEL SORIA MD on Jan 21 2025 8:20PM EST [id number] Normal [facility] XR LUMBAR 3V AP/LAT/L5-S1on 01-14-2025 XR LUMBAR [...] intact. COMBINED IMPRESSION: Degenerative changes as described. Medical Information Officer: [facility] Transcribe Date/Time: Jan 21 2025 8:19P Dictated by : MISHEL SORIA MD This examination was interpreted and the report reviewed and electronically signed by: MISHEL SORIA MD on Jan 21 2025 8:20PM EST [id number] Normal [facility] Bacteria Ur Culton Bacteria identified Cx Nom (U) ORGANISM ID: 1 10,000 -<50,000 CFU/ml Mixed microbiota No further workup. Mixed microbiota can be due to???urine???contamination with skin bacteria at time of collection or presence of a long-term urinary catheter. If a new culture is needed, please consider re-education of the patient on proper midstream collection technique or straight catheterization for???urine???collection. Normal [facility] Comment on above: Performed By: #### 6 30-4 ####[facility] LABCLIA [id number] [place] [address] [place] CBC W Auto Differential pane l (Bld)on 01-12-2025 Basophils (Bld) [#/Vol] 0.07 10*3/uL Normal <0.11 [facility] Comment on above: Order Comment: Speci men Type: BLOOD SPECIMEN [facility] Address: [address] [place] [address] Performed By: #### 1 9123-9 #### [facility] CLIA [id number] [address] [place] [address] [place] Basophils/100 WBC (Bld) 0.7 % Normal [facility] Comment on above: Order Comment: Speci men Type: BLOOD SPECIMEN [facility] Address: [address] [place] [address] Performed By: #### 1 9123-9 #### [facility] CLIA [id number] [address] [place] [address] [place] Differential cell count method Nom (Bld) Auto Normal [facility] Comment on above: Order Comment: Speci men Type: BLOOD SPECIMEN [facility] Address: [address] [place] [address] Performed By: #### 1 9123-9 #### [facility] CLIA [id number] [address] [place] [address] [place] Eosinophils (Bld) [#/Vol] 0.26 10*3/uL Normal <0.46 [facility] Comment on above: Order Comment: Speci men Type: BLOOD SPECIMEN [facility] Facility[facility] Address: [address] [place] [address] Performed By: #### 1 9123-9 #### [facility] CLIA [id number] [address] [place] [address] [place] Eosinophils/100 WBC (Bld) 2.5 % Normal [facility] Comment on above: Order Comment: Speci men Type: BLOOD SPECIMEN Ordering Facility: [facility] Address: [address] [place] [address] Performed By: #### 1 9123-9 #### [facility] CLIA [id number] [address] [place] [address] [place] Erythrocyte distribution width (RBC) [Ratio] 14.4 % Normal 11.5-15.0 [facility] Comment on above: Order Comment: Speci men Type: BLOOD SPECIMEN Ordering Facility: [facility] Address: [address] [place] [address] Performed By: #### 1 9123-9 #### [facility] CLIA [id number] [address] [place] [address] [place] Hematocrit (Bld) [Volume fraction] 40.2 % Normal 36.0-46.0 [facility] Comment on above: Order Comment: Speci men Type: BLOOD SPECIMEN Ordering Facility: [facility] Address: [address] [place] [address] Performed By: #### 1 9123-9 #### [facility] CLIA [id number] [address] [place] [address] [place] Hemoglobin (Bld) [Mass/Vol] 12.9 g/dL Normal 11.5-15.5 [facility] Comment on above: Order Comment: Speci men Type: BLOOD SPECIMEN [facility]ing Facility: [facility] Address: [address] [place] [address] Performed By: #### 1 9123-9 #### [facility] CLIA [id number] [address] [place] [address] [place] Immature granulocytes (Bld) [#/Vol] 0.03 10*3/uL Normal <0.10 [facility] Comment on above: Order Comment: Speci men Type: BLOOD SPECIMEN [facility]ing Facility: [facility] Address: [address] [place] [address] Performed By: #### 1 9123-9 #### [facility] CLIA [id number] [address] [place] [address] [place] Immature granulocytes/100 WBC (Bld) 0.3 % Normal [facility] Comment on above: Order Comment: Speci men Type: BLOOD SPECIMEN [facility]ing Facility: [facility] Address: [address] [place] [address] Performed By: #### 1 9123-9 #### [facility] CLIA [id number] [address] [place] [address] [place] Lymphocytes (Bld) [#/Vol] 3.21 10*3/uL Normal 1.00-4.00 [facility] Comment on above: Order Comment: Speci men Type: BLOOD SPECIMEN Ordering Facility: [facility] Address: [address] [place] [address] Performed By: #### 1 9123-9 #### [facility] CLIA [id number] [address] [place] [address] [place] Lymphocytes/100 WBC (Bld) 30.7 % Normal [facility] Comment on above: Order Comment: Speci men Type: BLOOD SPECIMEN Ordering Facility: [facility] Address: [address] [place] [address] Performed By: #### 1 9123-9 #### [facility] CLIA [id number] [address] [place] [address] [place] MCH (RBC) [Entitic mass] 29.0 pg Normal 26.0-34.0 [facility] Comment on above: Order Comment: Speci men Type: BLOOD SPECIMEN Ordering Facility: [facility] Address: [address] [place] [address] Performed By: #### 1 9123-9 #### [facility] CLIA [id number] [address] [place] [address] [place] MCHC (RBC) [Mass/Vol] 32.1 g/dL Normal 30.5-36.0 [facility] Comment on above: Order Comment: Speci men Type: BLOOD SPECIMEN Ordering Facility: [facility] Address: [address] [place] [address] Performed By: #### 1 9123-9 #### [facility] CLIA [id number] [address] [place] [address] [place] MCV (RBC) [Entitic vol] 90.3 fL Normal 80.0-100.0 [facility] Comment on above: Order Comment: Speci men Type: BLOOD SPECIMEN Ordering Facility: [facility] Address: [address] [place] [address] Performed By: #### 1 9123-9 #### [facility] CLIA [id number] [address] [place] [address] [place] Monocytes (Bld) [#/Vol] 0.70 10*3/uL Normal <0.87 [facility] Comment on above: Order Comment: Speci men Type: BLOOD SPECIMEN Ordering Facility: [facility] Address: [address] [place] [address] Performed By: #### 1 9123-9 #### [facility] CLIA [id number] [address] [place] [address] [place] Monocytes/100 WBC (Bld) 6.7 % Normal [facility] Comment on above: Order Comment: Speci men Type: BLOOD SPECIMEN [facility]ing [facility]: [facility] Address: [address] [place] [address] Performed By: #### 1 9123-9 #### [facility] CLIA [id number] [address] [place] [address] [place] Neutrophils (Bld) [#/Vol] 6.19 10*3/uL Normal 1.45-7.50 [facility] Comment on above: Order Comment: Speci men Type: BLOOD SPECIMEN [facility]: [facility] Address: [address] [place] [address] Performed By: #### 1 9123-9 #### [facility] CLIA [id number] [address] [place] [address] [place] Neutrophils/100 WBC (Bld) 59.1 % Normal [facility] Comment on above: Order Comment: Speci men Type: BLOOD SPECIMEN [facility] Facility: [facility] Address: [address] [place] [address] Performed By: #### 1 9123-9 #### [facility] CLIA [id number] [address] [place] [address] [place] Nucleated RBC (Bld) [#/Vol] 10*3/uL Normal <0.01 [facility] Comment on above: Order Comment: Speci men Type: BLOOD SPECIMEN [facility]: [facility] Address: [address] [place] [address] Performed By: #### 1 9123-9 #### [facility] CLIA [id number] [address] [place] [address] [place] Nucleated RBC/100 WBC (Bld) [Ratio] 0.0 /100 WBC Normal [facility] Comment on above: Order Comment: Speci men Type: BLOOD SPECIMEN [facility]: [facility] Address: [address] [place] [address] Performed By: #### 1 9123-9 #### [facility] CLIA [id number] [address] [place] [address] [place] Platelet mean volume (Bld) [Entitic vol] 9.3 fL Normal 9.0-12.7 [facility] Comment on above: Order Comment: Speci men Type: BLOOD SPECIMEN [facility]: [facility] Address: [address] [place] [address] Performed By: #### 1 9123-9 #### [facility] CLIA [id number] [address] [place] [address] [place] Platelets (Bld) [#/Vol] 264 10*3/uL Normal 150-400 [facility] Comment on above: Order Comment: Speci men Type: BLOOD SPECIMEN [facility]: [facility] Address: [address] [place] [address] Performed By: #### 1 9123-9 #### [facility] CLIA [id number] [address] [place] [address] [place] RBC (Bld) [#/Vol] 4.45 10*6/uL Normal 3.90-5.20 [facility] Comment on above: Order Comment: Speci men Type: BLOOD SPECIMEN [facility]: [facility] Address: [address] [place] [address] Performed By: #### 1 9123-9 #### [facility] CLIA [id number] [address] [place] [address] [place] WBC (Bld) [#/Vol] 10.46 10*3/uL Normal 3.70-11.00 [facility] Comment on above: Order Comment: Speci men Type: BLOOD SPECIMEN [facility]: [facility] Address: [address] [place] [address] Performed By: #### 1 9123-9 #### [facility] CLIA [id number] [address] [place] [address] OF ED CNOVon 01-12-2025 CNOV Office Visit (INTMWS ) GAYLE CHO ([id number]) 1950 F Date Time Provider Department 01/12/25 1:40 PM ANGÉLICA MORATAYA During your visit today, we recorded the following information about you: Pulse Respiration Blood pressure Weight 76/minute 16/minute 168/80 68 kg 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 Has not been seen in 10 months. Recording using DAQ[employer] software for draft documentation of the visit was discussed with the patient/authorized access representative; all questions welcomed and answered. Patient/authorized access representative agreed to proceed Fatigue: - Persistent [...] Xanax before the visit, prescribed by a remote computer terminal operator previously. - has requested xanax in past [...] infection in 2020. - Underwent physical therapy [id number]. - Occasional sensation of legs giving out. [...] 4 years ago. - Has family in [place]. REVIEW OF SYSTEMS See HPI PAST MEDICAL [...] capsule (SUNNI (more content not included)... Normal [facility] Comprehensive metabolic 2000 panelon 01-12-2025 Albumin [Mass/Vol] 4.4 g/dL Normal 3.9-4.9 [facility] Comment on above: Order Comment: Nickolas wiggins Type: BLOOD SPECIMENOrdering Facility: [facility] Address: [address] [place] [address] Performed By: #### 3 024-7, 17345-4, 3051-0, 3016-3 ####[facility] [id number] [place] [address] [place] ALP [Catalytic activity/Vol] 106 U/L Normal 34-123 [facility] Comment on above: Order Comment: Nickolas wiggins Type: BLOOD SPECIMENOrdering Facility: [facility] Address: [address] [place] [address] Performed By: #### 3 024-7, 27836-0, 3051-0, 3016-3 ####[facility] [id number] [address] [address] [place] ALT [Catalytic activity/Vol] 13 U/L Normal 7-38 [facility] Comment on above: Order Comment: Speci men Type: BLOOD SPECIMENOrdering Facility: [facility] Address: [address] [place] [address] Performed By: #### 3 024-7, 90621-0, 3051-0, 3016-3 ####[facility] [id number] [place] [address] [place] Anion gap [Moles/Vol] 12 mmol/L Normal 8-15 [facility] Comment on above: Order Comment: Speci men Type: BLOOD SPECIMENOrdering Facility: [facility] Address: [address] [place] [address] Performed By: #### 3 024-7, 19782-3, 3051-0, 3016-3 ####[facility] [id number] [place] [address] [place] AST [Catalytic activity/Vol] 14 U/L Normal 13-35 [facility] Comment on above: Order Comment: Speci men Type: BLOOD SPECIMENOrdering Facility: [facility] Address: [address] [place] [address] Performed By: #### 3 024-7, 18727-4, 3051-0, 3016-3 ####[facility] [id number] [address] [address] [place] Bilirubin [Mass/Vol] 0.3 mg/dL Normal 0.2-1.3 [facility] Comment on above: Order Comment: Speci men Type: BLOOD SPECIMENOrdering Facility: [facility] Address: [address] [place] [address] Performed By: #### 3 024-7, 41892-1, 3051-0, 3016-3 ####[facility] [id number] [address] [address] [place] Calcium [Mass/Vol] 10.2 mg/dL Normal 8.5-10.2 [facility] Comment on above: Order Comment: Speci men Type: BLOOD SPECIMENOrdering Facility: [facility] Address: [address] [place] [address] Performed By: #### 3 024-7, 35093-2, 3051-0, 3016-3 ####[facility] [id number] [place] [address] [place] Chloride [Moles/Vol] 105 mmol/L Normal 98-107 [facility] Comment on above: Order Comment: Speci men Type: BLOOD SPECIMENOrdering Facility: [facility] Address: [address] [place] [address] Performed By: #### 3 024-7, 33533-2, 3051-0, 3016-3 ####[facility] [id number] [place] [address] [place] CO2 [Moles/Vol] 21 mmol/L Low 22-30 [facility] Comment on above: Order Comment: Speci men Type: BLOOD SPECIMENOrdering Facility: [facility] Address: [address] [place], [place] [address] Performed By: #### 3 024-7, 09287-9, 3051-0, 3016-3 ####[facility] [id number] [address] [address] [place] Creatinine [Mass/Vol] 1.78 mg/dL High 0.58-0.96 [facility] Comment on above: Order Comment: Speci men Type: BLOOD SPECIMENOrdering Facility: [facility] Address: [address] [place] [address] Performed By: #### 3 024-7, 11691-0, 3051-0, 3016-3 ####[facility] [id number] [place] [address] [place] eGFRcr SerPlBld CKD-EPI 2020 29 mL/min/1.73m??? Low >=60 [facility] Comment on above: Order Comment: Nickolas wiggins Type: BLOOD SPECIMENOrdering Facility: [facility] Address: [address] [place] [address] Result Comment: Shana mated Glomerular Filtration Rate [...] actual GFR. Performed By: #### 3 024-7, 98473-8, 305-0, 6-3 ####[facility] [id number] [place] [address] [place] Glucose [Mass/Vol] 72 mg/dL Low 74-99 [facility] Comment on above: Order Comment: Nickolas wiggins Type: BLOOD SPECIMENOrdering Facility: [facility] Address: [address] [place] [address] Result Comment: The [place] Diabetes Association (ADA) provides guidance for cutoff [...] Standards of Medical Care in Diabetes 2016, [place] Diabetes Association. Diabetes Care. 2016.39(Suppl 1). Performed By: #### 3 024-7, 58929-4, 3051-0, 3016-3 ####[facility] [id number] [address] [address] [place] Potassium [Moles/Vol] 5.0 mmol/L Normal 3.7-5.1 [facility] Comment on above: Order Comment: Speci men Type: BLOOD SPECIMENOrdering Facility: [facility] Address: [address] [place] [address] Performed By: #### 3 024-7, 81145-6, 305-0, 3015-3 ####[facility] [id number] [place] [id number] [place] Protein [Mass/Vol] 7.7 g/dL Normal 6.3-8.0 [facility] Comment on above: Order Comment: Speci men Type: BLOOD SPECIMENOrdering Facility: [facility] Address: [address] [place] [address] Performed By: #### 3 024-7, 45187-7, 0, 3 ####[facility] [id number] [place] [id number] [place] Sodium [Moles/Vol] 138 mmol/L Normal 136-144 [facility] Comment on above: Order Comment: Speci men Type: BLOOD SPECIMENOrdering Facility: [facility] Address: [address] [place], [place] [address] Performed By: #### 3 024-7, 75123-3, 305-0, 6-3 ####[facility] [id number] [place] [id number] [place] Urea nitrogen [Mass/Vol] 28 mg/dL High 7-21 [facility] Comment on above: Order Comment: Speci men Type: BLOOD SPECIMENOrdering Facility: [facility] Address: [address] [place] [address] Performed By: #### 3 024-7, 37876-7, 305-0, 3016-3 ####[facility] [id number] [place] [address] [place] ECG COMPLETEon 01-12-2025 ECG COMPLETE Ventricular Rate : 5 9 BPM Atrial Rate : 59 BPM P-R Interval : 180 ms QRS Duration : 92 ms Q-T Interval : 460 ms QTC Calculation(Bazett) : 455 ms Calculated P [place] : 41 degrees Calculated R [place] : 0 degrees Calculated T [place] : 74 degrees SINUS BRADYCARDIA MINIMAL VOLTAGE CRITERIA FOR LVH, MAY BE NORMAL VARIANT ( Anthony product ) BORDERLINE ECG Confirmed by MD MORROW QARAB ([id number]) on 01/13/2025 5:09:27 PM NAME : GAYLE CHO PID : [id number] : 1950 Gender : Female Race : ORD : [id number] Procedure Date : Jan 12 2025 14:19:07 Edit Date : Jan 13 2025 17:09:30 Diagnosis: SINUS BRADYCARDIA MINIMAL VOLTAGE CRITERIA FOR LVH, MAY BE NORMAL VARIANT ( [place] product ) BORDERLINE ECG Confirmed by MD MORROW QARAB ([id number]) on 01/13/2025 5:09:27 PM Test Reason : R53.83 Other fatigue Location : 185 : [facility] Overread By : MD MORROW QARAB Edited By : MD MORROW QARAB Referred By : , Acquired by : [id number], Normal [facility] ESR Westergren method (Bld) [Velocity]on 01-12-2025 ESR (Bld) [Velocity] 41 mm/h High 0-20 [facility] Comment on above: Order Comment: Nickolas wiggins Type: BLOOD SPECIMEN [facility] Address: [address] [place] [address] Performed By: #### 1 9123-9 #### [facility] CLIA [id number] [address] [place] [address] [place] HbA1c (Bld)on 01-12-2025 Average glucose Estimated from glycated hemoglobin (Bld) [Mass/Vol] 140 mg/dL Normal [facility] Comment on above: Order Comment: Speci men Type: BLOOD SPECIMEN [facility] Address: [address] [place] [address] Result Comment: eAG: (Estimated average glucose) is a calculated value from HgbA1c and is access representative of the average blood glucose level in the last 2-3 month period. Performed By: #### 5 5454-3 #### [facility] CLIA [id number] [address] [place] [address] [place] HbA1c (Bld) [Mass fraction] 6.5 % High 4.3-5.6 [facility] Comment on above: Order Comment: Speci men Type: BLOOD SPECIMEN [facility] Address: [address] [place] [address] Result Comment: [place] Diabetes Association guidelines indicate that patients with HgbA1c in the range 5.7-6.4% are at increased risk for development of diabetes, and intervention by lifestyle modification may be beneficial. HgbA1c greater or equal to 6.5% is considered diagnostic of diabetes. Performed By: #### 5 5454-3 #### [facility] CLIA [id number] [address] [place] [address] [place] Magnesium SerPl-mCncon 01-12 Magnesium [Mass/Vol] 2.2 mg/dL Normal 1.7-2.3 [facility] Comment on above: Order Comment: Speci men Type: BLOOD SPECIMEN [facility] Address: [address] [place] [address] Performed By: #### 1 9123-9 #### [facility] CLIA [id number] [address] [place] [address] [place] T3Free SerPl-mCncon 01-13-20 25 Free T3 [Mass/Vol] 2.0 pg/mL Low 2.3-4.1 [facility] Comment on above: Order Comment: Speci men Type: BLOOD SPECIMENOrdering Facility: [facility] Address: [address] [place] [address] Performed By: #### 3 024-7, 32246-7, 305-0, 6-3 ####[facility] [id number] [place] [address] [place] T4 Free SerPl-mCncon 025 Free T4 [Mass/Vol] 1.5 ng/dL Normal 0.9-1.7 [facility] Comment on above: Order Comment: Speci men Type: BLOOD SPECIMENOrdering Facility: [facility] Address: [address] [place] [address] Performed By: #### 3 024-7, 34422-6, 305-0, 6-3 ####[facility] [id number] [place] [address] [place] TSH SerPl-aCncon 01-12-2025 TSH Qn 0.907 m[IU]/L Normal 0.270-4.20 0 [facility] Comment on above: Order Comment: Speci men Type: BLOOD SPECIMENOrdering Facility: [facility] Address: [address] [place] [address] Performed By: #### 3 024-7, 17424-2, 305-0, 6-3 ####[facility] [id number] [place] [address] [place] UA DIP, URINE (POC)on 2024 BILIRUBIN UA (POCT) Negative Negative [facility] CLARITY UA (POCT) Clear [facility] COLOR UA (POCT) Yellow [facility] GLUCOSE UA (POCT) Negative Negative mg/dL [facility] Hemoglobin Ql (U) Negative Negative [facility] Interpretation and review of laboratory results Abnormal [facility] KETONE UA (POCT) Negative Negative mg/dL [facility] LEUKOCYTES UA (POCT) Large Abnormal Negative [facility] NITRITE UA (POCT) [facility] (POCT) 5.5 4.5 - 8.0 [facility] Protein Ql (U) 30 mg/dL Abnormal Negative [facility] SPECIFIC GRAVITY UA (POCT) 1.010 1.005 - 1.030 [facility] UROBILINOGEN UA (POCT) 0.2 Normal E.U./dL [facility] Location:[facility], [address] [place] [address], [id number] [place] [address] POINT OF CARE [facility] Urinalysis complete panel (U )on 01-12-2025 Bacteria LM.HPF (Urine sed) [#/Area] Negative Normal Negative [facility] Comment on above: Order Comment: Speci men Type: URINE SPECIMENOrdering Facility: [facility] Address: [address] [place] [address] Performed By: #### 2 4356-8 ####[facility] [id number] [place] [address] [place] Bilirubin Ql (U) Negative Normal Negative [facility] Comment on above: Order Comment: Speci men Type: URINE SPECIMENOrdering Facility: [facility] Address: [address] [place] [address] Performed By: #### 2 4356-8 ####[facility] [id number] [place] [address] [place] Clarity (Unsp spec) Clear Normal Clear [facility] Comment on above: Order Comment: Speci men Type: URINE SPECIMENOrdering Facility: [facility] Address: [address] [place] [address] Performed By: #### 2 4356-8 ####[facility] [id number] [place] [address] [place] Color (U) Yellow Normal Yellow [facility] Comment on above: Order Comment: Speci men Type: URINE SPECIMENOrdering Facility: [facility] Address: [address] [place] [address] Performed By: #### 2 4356-8 ####[facility] [id number] [place] [address] [place] Epithelial cells LM.HPF (Urine sed) [#/Area] Few Normal [facility] Comment on above: Order Comment: Speci men Type: URINE SPECIMENOrdering Facility: [facility] Address: [address] [place] [address] Performed By: #### 2 4356-8 ####[facility] [id number] [address] [place] [address] [place] Glucose Test strip (U) [Mass/Vol] Negative Normal Negative [facility] Comment on above: Order Comment: Speci men Type: URINE SPECIMENOrdering Facility: [facility] Address: [address] [place] [address] Performed By: #### 2 4356-8 ####[facility] LABCLIA [id number] [address], [place] [address] [place] Hemoglobin Ql (U) Negative Normal Negative [facility] Comment on above: Order Comment: Speci men Type: URINE SPECIMENOrdering Facility: [facility] Address: [address] [place] [address] Performed By: #### 2 4356-8 ####[facility] LABCLIA [id number] [address], [place] [address] [place] Hyaline casts (Urine sed) [#/Area] 1-3 /LPF Abnormal 0 /LPF [facility] Comment on above: Order Comment: Speci men Type: URINE SPECIMENOrdering Facility: [facility] Address: [address] [place] [address] Performed By: #### 2 4356-8 ####[facility] LABCLIA [id number] [address], [facility] [place] Ketones Ql (U) Negative Normal Negative [facility] Comment on above: Order Comment: Speci men Type: URINE SPECIMENOrdering Facility: [facility] Address: [address] [place] [address] Performed By: #### 2 4356-8 ####[facility] LABCLIA [id number] [address], [place] [address] [place] Leukocyte esterase Test strip Ql (U) 2+ Abnormal Negative [facility] Comment on above: Order Comment: Speci men Type: URINE SPECIMENOrdering Facility: [facility] Address: [address] [place] [address] Performed By: #### 2 4356-8 ####[facility] LABCLIA [id number] [place] [address] [place] Nitrite Ql (U) Negative Normal Negative [facility] Comment on above: Order Comment: Speci men Type: URINE SPECIMENOrdering Facility: [facility] Address: [address] [place] [address] Performed By: #### 2 4356-8 ####[facility] LABIA [id number] [place] [address] [place] pH (U) 5.5 [pH] Normal 5.0-8.0 [facility] Comment on above: Order Comment: Speci men Type: URINE SPECIMENOrdering Facility: [facility] Address: [address] [place] [address] Performed By: #### 2 4356-8 ####[facility] LABCLIA [id number] [place] [address] [place] Protein (U) [Mass/Vol] 1+ Abnormal Negative [facility] Comment on above: Order Comment: Speci men Type: URINE SPECIMENOrdering Facility: [facility] Address: [address] [place] [address] Performed By: #### 2 4356-8 ####[facility] LABIA [id number] [place] [address] [place] RBC LM.HPF (Urine sed) [#/Area] 0-2 /HPF Normal 0-2 /HPF [facility] Comment on above: Order Comment: Speci men Type: URINE SPECIMENOrdering Facility: [facility] Address: [address] [place] [address] Performed By: #### 2 4356-8 ####[facility] [id number] [place] [address] [place] Specific gravity (U) [Rel density] 1.010 Normal 1.005-1.03 0 [facility] Comment on above: Order Comment: Speci men Type: URINE SPECIMENOrdering Facility: [facility] Address: [address] [place] [address] Performed By: #### 2 4356-8 ####[facility] [id number] [place] [address] [place] Urobilinogen Ql (U) 0.2 EU/dL Normal 0.2-1.0 EU/dL [facility] Comment on above: Order Comment: Speci men Type: URINE SPECIMENOrdering Facility: [facility] Address: [address] [place] [address] Performed By: #### 2 4356-8 ####[facility] [id number] [place] [address] [place] WBC LM.HPF (Urine sed) [#/Area] 11-20 /HPF Abnormal 0-5 /HPF [facility] Comment on above: Order Comment: Speci men Type: URINE SPECIMENOrdering Facility: [facility] Address: [address] [place] [address] Performed By: #### 2 4356-8 ####[facility] [id number] [place] [address] [place] CNCOon 12-25-2024 CNCO Letter Text Normal [facility] CNPNo 10-06-2024 CNPN Telephone (ZULEMA) AGYLE CHO ([id number]) 1950 F Date Time Provider Department 10/06/24 [...] Take 1 tablet by mouth twice weekly [id number], then decrease to 1 tablet weekly. - [...] Encounter Status:Closed by ROLA GASTELUM on 10/06/24 [facility] ([facility] GAYLE CHO ([id number]) 1950 F Date Time Provider Department 04/14/24 [...] information be relayed to her surgeon. Regards, Jessiac Clark MD Allergies As of Date: 04/14/2024 [...] Take 1 tablet by mouth twice weekly b3xssvr, then decrease to 1 tablet weekly. - [...] Status:Closed by Robbin ORTEGA on 04/15/24 Normal [facility] 25(OH)D3 SerP-[facility] Foundationon 2023 25-hydroxyvitamin D3 [Mass/Vol] 29.4 ng/mL Low 31.0-80.0 [facility] Comment on above: Order Comment: Speci men Type: BLOOD SPECIMENOrdering Facility: [facility] Address: [address] [place] [address] Result Comment: Clas sification of 25 [place] Vitamin D status: Deficiency/Insufficiency: < or = 30 ng/ml. Sufficiency/Optimal Levels: 31-80 ng/mL Toxicity: > 100 ng/mL. Test performed by chemiluminescent immunoassay. Performed By: #### 1 989-3 ####[facility] LABCLIA [id number] [place] [address] [place] Bacteria Ur Culton Bacteria identified Cx Nom (U) ORGANISM ID: 1 <10,000 CFU/ml Normal urogenital el Normal [facility] Comment on above: Performed By: #### 6 30-4, 43956-0 ####[facility] LABCLIA [id number] [place] [address] [place] Ferritin SerPl-mCncon 2023 Ferritin [Mass/Vol] 145.0 ng/mL Normal 14.7-205.1 [facility] Comment on above: Order Comment: Speci men Type: BLOOD SPECIMENOrdering Facility: [facility] Address: [address] [place] [address] Performed By: #### 5 0190-8, 6-4 ####[facility] LABCLIA [id number] [place] [address] [place] Iron and Iron binding capaci ty panelon 03-28-2024 Iron [Mass/Vol] 50 ug/dL Normal 41-186 [facility] Comment on above: Order Comment: Speci men Type: BLOOD SPECIMENOrdering Facility: [facility] Address: [address] [place] [address] Performed By: #### 5 0190-8, 6-4 ####[facility] LABCLIA [id number] [place] [address] [place] Iron binding capacity [Mass/Vol] 260 ug/dL Normal 232-386 [facility] Comment on above: Order Comment: Speci men Type: BLOOD SPECIMENOrdering Facility: [facility] Address: [address] [place] [address] Performed By: #### 5 0190-8, 6-4 ####[facility] LABCLIA [id number] [place] [address] [place] Iron/TIBC [Molar ratio] 19.2 % Normal 15.0-57.0 [facility] Comment on above: Order Comment: Speci men Type: BLOOD SPECIMENOrdering Facility: [facility] Address: [address] [place] [address] Performed By: #### 5 0190-8, 2276-4 ####[facility] LABCLIA [id number] [place] [address] [place] Urinalysis complete panel (U )on 03-28-2024 BACTERIA UL 2078.5 uL High Negative [facility] Comment on above: Order Comment: Speci men Type: URINE SPECIMENOrdering Facility: [facility] Address: [address] [place] [address] Performed By: #### 6 30-4, 76333-2 ####[facility] LABCLIA [id number] [place] [address] [place] Bilirubin Ql (U) Negative Normal Negative [facility] Comment on above: Order Comment: Speci men Type: URINE SPECIMENOrdering Facility: [facility] Address: [address] [place] [address] Performed By: #### 6 30-4, 81667-0 ####[facility] LABCLIA [id number] [place] [address] [place] Clarity (Unsp spec) Cloudy Abnormal Clear [facility] Comment on above: Order Comment: Speci men Type: URINE SPECIMENOrdering Facility: [facility] Address: [address] [place] [address] Performed By: #### 6 30-4, 90505-7 ####[facility] LABCLIA [id number] [place] [address] [place] Color (U) Yellow Normal Yellow [facility] Comment on above: Order Comment: Speci men Type: URINE SPECIMENOrdering Facility: [facility] Address: [address] [place] [address] Performed By: #### 6 30-4, 56095-3 ####[facility] LABCLIA [id number] [place] [address] [place] Epithelial cells LM.HPF (Urine sed) [#/Area] Moderate Normal [facility] Comment on above: Order Comment: Speci men Type: URINE SPECIMENOrdering Facility: [facility] Address: [address] [place] [address] Result Comment: Few Performed By: #### 6 30-4, 16195-0 ####[facility] LABCLIA [id number] [place] [address] [place] Glucose Test strip (U) [Mass/Vol] Negative Normal Negative [facility] Comment on above: Order Comment: Speci men Type: URINE SPECIMENOrdering Facility: [facility] Address: [address] [place] [address] Performed By: #### 6 30-4, 37870-4 ####[facility] LABCLIA [id number] [place] [address] [place] Hemoglobin Ql (U) 3+ Abnormal Negative [facility] Comment on above: Order Comment: Speci men Type: URINE SPECIMENOrdering Facility: [facility] Address: [address] [place] [address] Performed By: #### 6 30-4, 65211-0 ####[facility] LABCLIA [id number] [place] [address] [place] Hyaline casts (Urine sed) [#/Area] 4-10 /LPF Abnormal 0 /LPF [facility] Comment on above: Order Comment: Speci men Type: URINE SPECIMENOrdering Facility: [facility] Address: [address] [place] [address] Performed By: #### 6 30-4, 77509-9 ####[facility] LABCLIA [id number] [place] [address] [place] Ketones Ql (U) Negative Normal Negative [facility] Comment on above: Order Comment: Speci men Type: URINE SPECIMENOrdering Facility: [facility] Address: [address] [place] [address] Performed By: #### 6 30-4, 98843-6 ####[facility] LABCLIA [id number] [place] [address] [place] Leukocyte esterase Test strip Ql (U) 3+ Abnormal Negative [facility] Comment on above: Order Comment: Speci men Type: URINE SPECIMENOrdering Facility: [facility] Address: [address] [place] [address] Performed By: #### 6 30-4, 89713-8 ####[facility] LABCLIA [id number] [place] [address] [place] Nitrite Ql (U) Negative Normal Negative [facility] Comment on above: Order Comment: Speci men Type: URINE SPECIMENOrdering Facility: [facility] Address: [address] [place] [address] Performed By: #### 6 30-4, 34999-6 ####[facility] LABCLIA [id number] [place] [address] [place] pH (U) 5.5 [pH] Normal <8.5 [facility] Comment on above: Order Comment: Speci men Type: URINE SPECIMENOrdering Facility: [facility] Address: [address] [place] [address] Performed By: #### 6 30-4, 09967-8 ####[facility] LABCLIA [id number] [place] [address] [place] Protein (U) [Mass/Vol] 2+ Abnormal Negative [facility] Comment on above: Order Comment: Speci men Type: URINE SPECIMENOrdering Facility: [facility] Address: [address] [place] [address] Performed By: #### 6 30-4, 38445-0 ####[facility] LABIA [id number] [place] [address] [place] RBC LM.HPF (Urine sed) [#/Area] /[HPF] Abnormal 0-2 /HPF [facility] Comment on above: Order Comment: Speci men Type: URINE SPECIMENOrdering Facility: [facility] Address: [address] [place] [address] Performed By: #### 6 30-, 85959-1 ####[facility] LABIA [id number] [place] [address] [place] Specific gravity (U) [Rel density] 1.012 Normal 1.005-1.03 0 [facility] Comment on above: Order Comment: Speci men Type: URINE SPECIMENOrdering Facility: [facility] Address: [address] [place] [address] Performed By: #### 6 30-, 42972-5 ####[facility] [id number] [place] [address] [place] Urobilinogen Ql (U) 0.2 EU/dL Normal 0.2-1.0 EU/dL [facility] Comment on above: Order Comment: Speci men Type: URINE SPECIMENOrdering Facility: [facility] Address: [address] [place] [address] Performed By: #### 6 30-4, 34114-4 ####[facility] LABIA [id number] [place] [address] [place] WBC LM.HPF (Urine sed) [#/Area] /[HPF] Abnormal 0-5 /HPF [facility] Comment on above: Order Comment: Speci men Type: URINE SPECIMENOrdering Facility: [facility] Address: [address] [place] [address] Performed By: #### 6 30-4, 12638-0 ####[facility] LABCLIA [id number] [place] [address] [place] Yeast.budding LM.HPF (Urine sed) [#/Area] Present Abnormal None Seen [facility] Comment on above: Order Comment: Speci men Type: URINE SPECIMENOrdering Facility: [facility] Address: [address] [place] [address] Performed By: #### 6 30-4, 38379-2 ####[facility] LABCLIA [id number] [place] [address] [place] CNPNon 03-25-2024 CNPN Telephone (INTMWS) GAYLE CHO ([id number]) 1950 F Date Time Provider Department 03/25/24 [...] WITH MICROSCOPIC, REFLEX CULTURE [SQUACII] Order #: [id number] FUTURE Prescriptions as of 03/26/2024 - amLODIPine [...] Take 1 tablet by mouth twice weekly s1tupzh, then decrease to 1 tablet weekly. - [...] Encounter Status:Closed by REGLA VILLATORO on 03/26/24 [facility] CNPN Telephone (FAMWS) GAYLE CHO ([id number]) 1950 F Date Time Provider Department 03/25/24 [facility], we recorded [...] Take 1 tablet by mouth twice weekly [id number], then decrease to 1 tablet weekly. - [...] Encounter Status:Closed by REGLA VILLATORO on 03/26/24 [facility] Lewis 03-24-2024 CNOV Office Visit (INTMWS ) GAYLE CHO ([id number]) 1950 F Date Time Provider Department 03/24/24 [...] her . Has a support group at [employer] and family that is helping. She does [...] (NSTEMI), subendocardial infarction, initial episode of care ([facility]) 02/20/2012 Type II or unspecified [...] 4 Cholesterol [Mass/Vol] 168 mg/dL Normal <200 [facility] Comment on above: Order Comment: Speci men Type: BLOOD SPECIMENOrdering Facility: [facility] Address: [address] [place] [address] Result Comment: <200 mg/dL, Desirable 200-239 mg/dL, Borderline high >239 mg/dL, High Performed By: #### 2 4331-1, 3024-7, 3051-0, 3016-3 ####[facility] LABCLIA [id number] [place] [address] [place] Cholesterol in HDL [Mass/Vol] 23 mg/dL Low >39 [facility] Comment on above: Order Comment: Speci men Type: BLOOD SPECIMENOrdering Facility: [facility] Address: [address] [place] [address] Result Comment: 40-5 9 mg/dL, Acceptable >59 mg/dL, High: Negative risk factor for coronary heart disease <40 mg/dL, Low: Positive risk factor for coronary heart disease Performed By: #### 2 4331-1, 3024-7, 305-0, 3016-3 ####[facility] LABCLIA [id number] [place] [address] [place] Cholesterol in LDL [Mass/Vol] 92 mg/dL Normal <100 [facility] Comment on above: Order Comment: Speci men Type: BLOOD SPECIMENOrdering Facility: [facility] Address: [address] [place] [address] Result Comment: <100 mg/dL, Optimal 100-129 mg/dL, Near optimal/above optimal 130-159 mg/dL, Borderline high 160-189 mg/dL, High >189 mg/dL, Very high Secondary prevention optimal LDL Cholesterol levels are recommended to be < 70 mg/dL Performed By: #### 2 4331-1, 3024-7, 3051-0, 3016-3 ####[facility] LABCLIA [id number] [address] [place] Cholesterol in LDL/Cholesterol in HDL [Mass ratio] 4.00 {ratio} High <2.54 [facility] Comment on above: Order Comment: Nickolas wiggins Type: BLOOD SPECIMENOrdering Facility: [facility] Address: [address] [place] [address] Result Comment: Monalisa mathis: 1. National Cholesterol Education Program ATP III Guideline At-A-Glance Quick Desk Reference: National Heart, Lung, and Blood [place]. National Institutes of Health. 2001: NIH Publication No. 01-3305. 2. An International Atherosclerosis Society position paper: global recommendations for the management of dyslipidemia: executive summary, Atherosclerosis. 2014: 232(2):410-413. Performed By: #### 2 4331-1, 3024-7, 3051-0, 3016-3 ####[facility] LABCLIA [id number] [place] [address] [place] Cholesterol in VLDL [Mass/Vol] 53 mg/dL High <30 [facility] Comment on above: Order Comment: Nickolas wiggins Type: BLOOD SPECIMENOrdering Facility: [facility] Address: [address] [place] [address] Performed By: #### 2 4331-1, 3024-7, 305-0, 3016-3 ####[facility] LABCLIA [id number] [place] [address] [place] Cholesterol non HDL [Mass/Vol] 145 mg/dL High <130 [facility] Comment on above: Order Comment: Nickolas wiggins Type: BLOOD SPECIMENOrdering Facility: [facility] Address: [address] [place] [address] Result Comment: <130 mg/dL, Optimal 130-159 mg/dL, Near optimal/above optimal 160-189 mg/dL, Borderline high 190-219 mg/dL, High >219 mg/dL, Very high Secondary prevention optimal non HDL Cholesterol levels are recommended to be <100 mg/dL Performed By: #### 2 4331-1, 3024-7, 3051-0, 3016-3 ####[facility] LABCLIA [id number] [address] [address] [place] Cholesterol.total/Cho lesterol in HDL [Mass ratio] 7.30 {ratio} High <5.10 [facility] Comment on above: Order Comment: Speci men Type: BLOOD SPECIMENOrdering Facility: [facility] Address: [address] [place] [address] Performed By: #### 2 4331-1, 3024-7, 305-0, 3016-3 ####[facility] [id number] [place] [address] [place] FASTING TIME 11 hrs Normal [facility] Comment on above: Order Comment: Speci men Type: BLOOD SPECIMENOrdering Facility: [facility] Address: [address] [place] [address] Performed By: #### 2 4331-1, 3024-7, 305-0, 6-3 ####[facility] LABIA [id number] [address] [address] [place] Triglyceride [Mass/Vol] 266 mg/dL High <150 [facility] Comment on above: Order Comment: Speci men Type: BLOOD SPECIMENOrdering Facility: [facility] Address: [address] [place] [address] Result Comment: <150 mg/dL, Normal 150-199 mg/dL, Borderline high 200-499 mg/dL, High >499 mg/dL, Very high Performed By: #### 2 4331-1, 3024-7, 305-0, 3016-3 ####[facility] LABIA [id number] [place] [id number] [place] T3Free SerPl-mCncon 03-21-20 24 Free T3 [Mass/Vol] 1.6 pg/mL Low 2.3-4.1 [facility] Comment on above: Order Comment: Speci men Type: BLOOD SPECIMENOrdering Facility: [facility] Address: [address] [place] [address] [place] [address] Performed By: #### 2 4331-1, 3024-7, 305-0, 6-3 ####[facility] LABCLIA [id number] [place] [address] [place] T4 Free SerPl-mCncon 024 Free T4 [Mass/Vol] 1.5 ng/dL Normal 0.9-1.7 [facility] Comment on above: Order Comment: Speci men Type: BLOOD SPECIMENOrdering Facility: [facility] Address: [address] [place] [address] Performed By: #### 2 4331-1, 3024-7, 305-0, 3015-3 ####[facility] LABCLIA [id number] [place] [address] [place] TSH SerPl-aCncon 03-21-2024 TSH Qn 2.490 m[IU]/L Normal 0.270-4.20 0 [facility] Comment on above: Order Comment: Speci men Type: BLOOD SPECIMENOrdering Facility: [facility] Address: [address] [place], [place] [address] [address] Performed By: #### 2 4331-1, 3024-7, 305-0, 3015-3 ####[facility] LABIA [id number] [address] [place] [facility] GAYLE CHO ([id number]) 1950 F Date Time Provider Department 03/18/24 [...] Date Reviewed: 01/02/2024 Reviewed by: Angélica Morataya APRN.[employer] - Fully Assessed Reason for Visit: Results [...] Take 1 tablet by mouth twice weekly [id number], then decrease to 1 tablet weekly. - [...] [facility] Telephone (INTMWS) MARQUISGAYLE ([id number]) 1950 F Date Time Provider Department 03/18/24 [...] Date Reviewed: 01/02/2024 Reviewed by: Angélica Morataya APRN.[facility] - Fully Assessed Reason for Visit: home health update [Other] Prescriptions as of 03/19/2024 - levothyroxine (LEVOXYL) 100 mcg tablet Take 1 tablet by mouth once daily. Take on empty stomach. For Thyroid. - ergocalciferol 50,000 unit capsule (VITAMIN D2, DRISDOL) Take 1 tablet by mouth twice weekly e7poeiz, then decrease to 1 tablet weekly. - [...] Status:Closed by JESSICA CLARK on 03/18/24 Normal [facility] Culture, Blood (WB)on 2023 CUB Blood cultures x2 fr om two different sites No growth in 5 days. Normal [facility] Comment on above: Performed By: #### L 500.2500, L100.0100 #### [facility] [address] [place], [address] Basic Metabolic Profile (BMP )on 03-14-2024 BUN/CRE 19.6 RATIO Normal 10-20 [facility] Comment on above: Performed By: #### L 100.0100, L500.2500 #### [facility] [address] [place], [address] CA,Total 8.8 mg/dL Normal 8.5-10.1 [facility] Comment on above: Performed By: #### L 100.0100, L500.2500 #### [facility] [address] [place], [address] Chloride [Moles/Vol] 107 mmol/L Normal 98-107 [facility] Comment on above: Performed By: #### L 100.0100, L500.2500 #### [facility] [address] [place], [address] CO2 [Moles/Vol] 22.0 mmol/L Normal 21.0-32.0 [facility] Comment on above: Performed By: #### L 100.0100, L500.2500 #### [facility] [address] [place], [address] Creatinine [Mass/Vol] 1.84 mg/dL High 0.55-1.02 [facility] Comment on above: Result Comment: The validity of the calculated GFR GFRAA in patients over 70 years has not been determined. Clinical correlation is essential. Performed By: #### L 100.0100, L500.2500 #### [facility] [address] [place], [address] ECRCL 23.16 ml/min Normal [facility] Comment on above: Performed By: #### L 100.0100, L500.2500 #### [facility] [address] [place], [address] EST GFR - AA 34 mL/min Low >60 [facility] Comment on above: Result Comment: Afri can Ecuadorean GFR Calc Performed By: #### L 100.0100, L500.2500 #### [facility] [address] [place], [address] GAP 6 Normal 5-15 [facility] Comment on above: Performed By: #### L 100.0100, L500.2500 #### [facility] [address] [place], [address] GFR/1.73 sq M.predicted among non-blacks MDRD (S/P/Bld) [Vol rate/Area] 28 mL/min/{1.73_m2} Low >60 [facility] Comment on above: Result Comment: Non- GFR Calc Performed By: #### L 100.0100, L500.2500 #### [facility] [address] [place], [address] Glucose [Mass/Vol] 92 mg/dL Normal 74-106 [facility] Comment on above: Performed By: #### L 100.0100, L500.2500 #### [facility] [address] [place], [address] Potassium [Moles/Vol] 3.8 mmol/L Normal 3.5-5.1 [facility] Comment on above: Performed By: #### L 100.0100, L500.2500 #### [facility] [address] [place], [address] Sodium [Moles/Vol] 135 mmol/L Low 136-145 [facility] Comment on above: Performed By: #### L 100.0100, L500.2500 #### [facility] [address] [place], [address] Urea nitrogen [Mass/Vol] 36 mg/dL High 7-18 [facility] Comment on above: Performed By: #### L 100.0100, L500.2500 #### [facility] [address], [address] [facility] 03-14-2024 CNPN Telephone (INTMWS) GAYLE CHO ([id number]) 1950 F Date Time Provider Department 03/14/24 JESSICA CLARK INTWS During your visit today, we recorded the following information about you: Marilyn Porter LPN 03/14/2024 9:22 AM Signed Will from [employer] Odeme | [employer] calling patient discharging today from [facility], sepsis, UTI, weakness acute kidney injury. Plan [...] RN 03/19/2024 4:04 PM Addendum Oneyda @ [facility] notified of provider message. Left VM message for patient to return call to [phone] and ask for triage nurse. Chelly Alamo [...] Date Reviewed: 01/02/2024 Reviewed by: Angélica Morataya APRN.[employer] - Fully Assessed Reason for Visit: home health requesting verbal orders [Other] Prescriptions as of 03/21/2024 - levothyroxine (LEVOXYL) 100 mcg tablet Take 1 tablet by mouth once daily. Take on empty stomach. For Thyroid. - ergocalciferol 50,000 unit capsule (VITAMIN D2, DRISDOL) Take 1 tablet by mouth twice weekly [id number], then decrease to 1 tablet weekly. - [...] Status:Closed by MARILYN PORTER on 03/21/24 Normal [facility] Urine Cultureon 03-14-2024 URC Escherichia coli [place] Count >100,000 Escherichia coli: REACTION Ampicillin Islt [...] TMP SMX Islt SHANA <=20 S Normal [facility] Comment on above: Performed By: #### L 500.2500, L100.0100 #### [facility] [address] [place], [place], [address] Basic Metabolic Profile (BMP )on 03-13-2024 BUN/CRE 19.4 RATIO Normal 03-09 [facility] Comment on above: Performed By: #### L 100.0100, L500.2500 #### [facility] [address] [place], [address] CA,Total 8.8 mg/dL Normal 8.5-10.1 [facility] Comment on above: Performed By: #### L 100.0100, L500.2500 #### [facility] [address] [place], [address] Chloride [Moles/Vol] 107 mmol/L Normal 98-107 [facility] Comment on above: Performed By: #### L 100.0100, L500.2500 #### [facility] [address] [place], [address] CO2 [Moles/Vol] 22.0 mmol/L Normal 21.0-32.0 [facility] Comment on above: Performed By: #### L 100.0100, L500.2500 #### [facility] [address] [place], [address] Creatinine [Mass/Vol] 2.17 mg/dL High 0.55-1.02 [facility] Comment on above: Result Comment: The validity of the calculated GFR GFRAA in patients over 70 years has not been determined. Clinical correlation is essential. Performed By: #### L 100.0100, L500.2500 #### [facility] [address] [place], [address] ECRCL 19.60 ml/min Normal [facility] Comment on above: Performed By: #### L 100.0100, L500.2500 #### [facility] [address] [place], [address] EST GFR - AA 28 mL/min Low >60 [facility] Comment on above: Result Comment: Afri can Ecuadorean GFR Calc Performed By: #### L 100.0100, L500.2500 #### [facility] [address] [place], [address] GAP 6 Normal 5-15 [facility] Comment on above: Performed By: #### L 100.0100, L500.2500 #### [facility] [address] [place], [address] GFR/1.73 sq M.predicted among non-blacks MDRD (S/P/Bld) [Vol rate/Area] 23 mL/min/{1.73_m2} Low >60 [facility] Comment on above: Result Comment: Non- GFR Calc Performed By: #### L 100.0100, L500.2500 #### [facility] [address] [place], [address] Glucose [Mass/Vol] 93 mg/dL Normal 74-106 [facility] Comment on above: Performed By: #### L 100.0100, L500.2500 #### [facility] [address] [place], [address] Potassium [Moles/Vol] 3.7 mmol/L Normal 3.5-5.1 [facility] Comment on above: Performed By: #### L 100.0100, L500.2500 #### [facility] [address] [place], [address] Sodium [Moles/Vol] 135 mmol/L Low 136-145 [facility] Comment on above: Performed By: #### L 100.0100, L500.2500 #### [facility] [address] [place], [address] Urea nitrogen [Mass/Vol] 42 mg/dL High 7-18 [facility] Comment on above: Performed By: #### L 100.0100, L500.2500 #### [facility] [address] [place], [address] CBC W/Diff, Automatedon 10-2 Absolute Lymph 1.51 X10 3/uL Normal 0.83-4.51 [facility] Comment on above: Performed By: #### L 100.0100, L500.2500 #### [facility] [address] [place], [address] Absolute Neut 7.5 X10 3/uL Normal 2.0-7.7 [facility] Comment on above: Performed By: #### L 100.0100, L500.2500 #### [facility] [address] [place], [address] Basophils/100 WBC (Bld) 0.3 % Normal 0-1 [facility] Comment on above: Performed By: #### L 100.0100, L500.2500 #### [facility] [address] [place], [address] Eosinophils/100 WBC (Bld) 0.5 % Normal 0-5 [facility] Comment on above: Performed By: #### L 100.0100, L500.2500 #### [facility] [address] [place], [address] Erythrocyte distribution width (RBC) [Ratio] 14.6 % Normal 11.6-14.6 [facility] Comment on above: Performed By: #### L 100.0100, L500.2500 #### [facility] [address] [place], [address] Hematocrit (Bld) [Volume fraction] 31.8 % Low 37-47 [facility] Comment on above: Performed By: #### L 100.0100, L500.2500 #### [facility] [address] [place], [address] Hemoglobin (Bld) [Mass/Vol] 10.2 g/dL Low 12.0-15.0 [facility] Comment on above: Performed By: #### L 100.0100, L500.2500 #### [facility] [address] [place], [address] IG% 0.900 Normal 0.0-0.9 [facility] Comment on above: Result Comment: IG% - Immature Granulocytes (promyelocytes, myelocytes and metamyelocytes) > 1% indicates that a LEFT SHIFT is Present. Performed By: #### L 100.0100, L500.2500 #### [facility] [address] [place], [address] Lymphocytes/100 WBC (Bld) 14.4 % Low 19-41 [facility] Comment on above: Performed By: #### L 100.0100, L500.2500 #### [facility] [address] [place], [address] MCH (RBC) [Entitic mass] 29.8 pg Normal 27.0-32.0 [facility] Comment on above: Performed By: #### L 100.0100, L500.2500 #### [facility] [address] [place], [address] MCHC (RBC) [Mass/Vol] 32.1 g/dL Normal 32-36 [facility] Comment on above: Performed By: #### L 100.0100, L500.2500 #### [facility] [address] [place], [address] MCV (RBC) [Entitic vol] 93.0 fL Normal 81-99 [facility] Comment on above: Performed By: #### L 100.0100, L500.2500 #### [facility] [address] [place], [address] Monocytes/100 WBC (Bld) 12.2 % High 0-10 [facility] Comment on above: Performed By: #### L 100.0100, L500.2500 #### [facility] [address] [place], [address] Neutrophils/100 WBC (Bld) 71.7 % High 47-70 [facility] Comment on above: Performed By: #### L 100.0100, L500.2500 #### [facility] [address] [place], [address] Nucleated RBC (Bld) [#/Vol] 0 10*3/uL Normal 0-5 [facility] Comment on above: Performed By: #### L 100.0100, L500.2500 #### [facility] [address] [place], [address] Platelet mean volume (Bld) [Entitic vol] 9.6 fL Normal 6.2-12.0 [facility] Comment on above: Performed By: #### L 100.0100, L500.2500 #### [facility] [address] [place], [address] Platelets (Bld) [#/Vol] 179 10*3/uL Normal 150-450 [facility] Comment on above: Performed By: #### L 100.0100, L500.2500 #### [facility] [address] [place], [address] RBC (Bld) [#/Vol] 3.42 10*6/uL Low 4.2-5.4 [facility] Comment on above: Performed By: #### L 100.0100, L500.2500 #### [facility] [address] [place], [address] RDW SD 50.0 fl High 35.1-43.9 [facility] Comment on above: Performed By: #### L 100.0100, L500.2500 #### [facility] [address] [place], [address] WBC (Bld) [#/Vol] 10.5 10*3/uL Normal 4.4-11.0 [facility] Comment on above: Performed By: #### L 100.0100, L500.2500 #### [facility] [address] [place], [address] Abdomen/Pelvis without Conto n 03-12-2024 Abdomen/Pelvis without Cont [facility] [address] [place] [address] Abdomen/Pelvis without Cont MR#: [id number] Acct: [id number] Name: GAYLE CHO Rep #: [id number] : 1950 F 73 From: Aletha Walsh PCP: Dr. Jessica Clark MD Status: ADM IN Study: Abdomen/Pelvis without Cont Date of Exam: 02/19 08/11 Exam# [id number] Ordering Dr: Steve Castanon DO [id number] EXAM: CT Abdomen And Pelvis W/O Contrast [...] Dr. Jessica Clark MD; Steve Castanon DO Medical Information Officer: Signed Normal [facility] Basic Metabolic Profile (BMP )on 03-12-2024 BUN/CRE 18.8 RATIO Normal 03-09 [facility] Comment on above: Performed By: #### L 500.2500, L100.0100 #### [facility] [address] [place], [address] CA,Total 8.6 mg/dL Normal 8.5-10.1 [facility] Comment on above: Performed By: #### L 500.2500, L100.0100 #### [facility] [address] [place], [address] Chloride [Moles/Vol] 105 mmol/L Normal 98-107 [facility] Comment on above: Performed By: #### L 500.2500, L100.0100 #### [facility] [address] [place], [address] CO2 [Moles/Vol] 25.0 mmol/L Normal 21.0-32.0 [facility] Comment on above: Performed By: #### L 500.2500, L100.0100 #### [facility] [address] [place], [address] Creatinine [Mass/Vol] 2.13 mg/dL High 0.55-1.02 [facility] Comment on above: Result Comment: The validity of the calculated GFR GFRAA in patients over 70 years has not been determined. Clinical correlation is essential. Performed By: #### L 500.2500, L100.0100 #### [facility] [address] [place], [address] ECRCL 19.97 ml/min Normal [facility] Comment on above: Performed By: #### L 500.2500, L100.0100 #### [facility] [address] [place], [address] EST GFR - AA 29 mL/min Low >60 [facility] Comment on above: Result Comment: Afri can Ecuadorean GFR Calc Performed By: #### L 500.2500, L100.0100 #### [facility] [address] [place], [address] GAP 5 Normal 5-15 [facility] Comment on above: Performed By: #### L 500.2500, L100.0100 #### [facility] [address] [place], [address] GFR/1.73 sq M.predicted among non-blacks MDRD (S/P/Bld) [Vol rate/Area] 24 mL/min/{1.73_m2} Low >60 [facility] Comment on above: Result Comment: Non- GFR Calc Performed By: #### L 500.2500, L100.0100 #### [facility] [address] [place], [address] Glucose [Mass/Vol] 116 mg/dL High 74-106 [facility] Comment on above: Result Comment: Fast ing Glucose result from 100 to 125 mg/dL suggests IMPAIRED HOMEOSTASIS per A.D.A. criteria. Performed By: #### L 500.2500, L100.0100 #### [facility] [address] [place], [address] Potassium [Moles/Vol] 4.5 mmol/L Normal 3.5-5.1 [facility] Comment on above: Performed By: #### L 500.2500, L100.0100 #### [facility] [address] [place], [address] Sodium [Moles/Vol] 134 mmol/L Low 136-145 [facility] Comment on above: Performed By: #### L 500.2500, L100.0100 #### [facility] [address] [place], [address] Urea nitrogen [Mass/Vol] 40 mg/dL High 7-18 [facility] Comment on above: Performed By: #### L 500.2500, L100.0100 #### [facility] [address] [place], [address] CBC W/Diff, Automatedon 10-2 PATH REV Reviewed Normal [facility] Comment on above: Result Comment: Neut rophilic leukocytosis. Clinical correlation necessary. Clay Torre M.D. 03/12/24 AMENDED REPORT 03/12/24 1407 PATH REV previously reported as: September ene Performed By: #### L 500.2500, L100.0100 #### [facility] [address] [place], [address] Absolute Lymph 1.17 X10 3/uL Normal 0.83-4.51 [facility] Comment on above: Performed By: #### L 500.2500, L100.0100 #### [facility] [address] [place], [address] Absolute Neut 13.2 X10 3/uL High 2.0-7.7 [facility] Comment on above: Performed By: #### L 500.2500, L100.0100 #### [facility] [address] [place], [address] Basophils/100 WBC (Bld) 0.3 % Normal 0-1 [facility] Comment on above: Performed By: #### L 500.2500, L100.0100 #### [facility] [address] [place], [address] Eosinophils/100 WBC (Bld) 0.1 % Normal 0-5 [facility] Comment on above: Performed By: #### L 500.2500, L100.0100 #### [facility] [address] [place], [address] Erythrocyte distribution width (RBC) [Ratio] 14.6 % Normal 11.6-14.6 [facility] Comment on above: Performed By: #### L 500.2500, L100.0100 #### [facility] [address] [place], [address] Hematocrit (Bld) [Volume fraction] 37.2 % Normal 37-47 [facility] Comment on above: Performed By: #### L 500.2500, L100.0100 #### [facility] [address] [place], [address] Hemoglobin (Bld) [Mass/Vol] 12.2 g/dL Normal 12.0-15.0 [facility] Comment on above: Performed By: #### L 500.2500, L100.0100 #### [facility] [address] [place], [address] IG% 0.900 Normal 0.0-0.9 [facility] Comment on above: Result Comment: IG% - Immature Granulocytes (promyelocytes, myelocytes and metamyelocytes) > 1% indicates that a LEFT SHIFT is Present. Performed By: #### L 500.2500, L100.0100 #### [facility] [address] [place], [address] Lymphocytes/100 WBC (Bld) 7.6 % Low 19-41 [facility] Comment on above: Performed By: #### L 500.2500, L100.0100 #### [facility] [address] [place], [address] MCH (RBC) [Entitic mass] 30.4 pg Normal 27.0-32.0 [facility] Comment on above: Performed By: #### L 500.2500, L100.0100 #### [facility] [address] [place], [address] MCHC (RBC) [Mass/Vol] 32.8 g/dL Normal 32-36 [facility] Comment on above: Performed By: #### L 500.2500, L100.0100 #### [facility] [address] [place], [address] MCV (RBC) [Entitic vol] 92.8 fL Normal 81-99 [facility] Comment on above: Performed By: #### L 500.2500, L100.0100 #### [facility] [address] [place], [address] Monocytes/100 WBC (Bld) 5.6 % Normal 0-10 [facility] Comment on above: Performed By: #### L 500.2500, L100.0100 #### [facility] [address] [place], [address] Neutrophils/100 WBC (Bld) 85.5 % High 47-70 [facility] Comment on above: Performed By: #### L 500.2500, L100.0100 #### [facility] [address] [place], [address] Nucleated RBC (Bld) [#/Vol] 0 10*3/uL Normal 0-5 [facility] Comment on above: Performed By: #### L 500.2500, L100.0100 #### [facility] [address] [place], [address] Platelet mean volume (Bld) [Entitic vol] 9.2 fL Normal 6.2-12.0 [facility] Comment on above: Performed By: #### L 500.2500, L100.0100 #### [facility] [address] [place], [address] Platelets (Bld) [#/Vol] 197 10*3/uL Normal 150-450 [facility] Comment on above: Performed By: #### L 500.2500, L100.0100 #### [facility] [address] [place], [address] RBC (Bld) [#/Vol] 4.01 10*6/uL Low 4.2-5.4 [facility] Comment on above: Performed By: #### L 500.2500, L100.0100 #### [facility] [address] [place], [address] RDW SD 50.6 fl High 35.1-43.9 [facility] Comment on above: Performed By: #### L 500.2500, L100.0100 #### [facility] [address] [place], [address] WBC (Bld) [#/Vol] 15.4 10*3/uL High 4.4-11.0 [facility] Comment on above: Performed By: #### L 500.2500, L100.0100 #### [facility] [address] [place], [place], [address] Chest PA and Lateralon 03-12 Chest PA and Lateral [facility] [address] [place] [address] Chest PA and Lateral MR#: [id number] Acct: [id number] Name: GAYLE CHO Rep #: [id number] : 1950 F 73 From: Aletha Walsh PCP: Dr. Jessica Clark MD Status: ADM IN Study: Chest PA and Lateral Date of Exam: 03/12/24 Exam# [id number] Ordering Dr: Steve Castanon DO [id number] INDICATION: fever EXAMINATION/TECHNIQUE: X-RAY - XR Chest [...] Dr. Jessica Clark MD; Steve Castanon DO Medical Information Officer: Signed Normal [facility] Comprehensive Metabolic Prof ilon 03-12-2024 Albumin [Mass/Vol] 2.8 g/dL Low 3.2-5.0 [facility] Comment on above: Performed By: #### L 500.2500, L100.0100 #### [facility] [address] [place], [address] Albumin/Globulin [Mass ratio] 0.7 {ratio} Low 0.9-2.4 [facility] Comment on above: Performed By: #### L 500.2500, L100.0100 #### [facility] [address] [place], [address] ALK P 83 U/L Normal 45-117 [facility] Comment on above: Performed By: #### L 500.2500, L100.0100 #### [facility] [address] [place], [address] ALT [Catalytic activity/Vol] 11 U/L Low 13-56 [facility] Comment on above: Performed By: #### L 500.2500, L100.0100 #### [facility] [address] [place], [address] AST [Catalytic activity/Vol] 7 U/L Low 15-37 [facility] Comment on above: Performed By: #### L 500.2500, L100.0100 #### [facility] [address] [place], [address] Bilirubin [Mass/Vol] 1.20 mg/dL High 0.20-1.00 [facility] Comment on above: Result Comment: For patients on eltrombopag therapy, use of [facility] TBIL is not recommended. Performed By: #### L 500.2500, L100.0100 #### [facility] [address] [place], [address] BUN/CRE 18.1 RATIO Normal 10-20 [facility] Comment on above: Performed By: #### L 500.2500, L100.0100 #### [facility] [address] [place], [address] CA,Total 9.0 mg/dL Normal 8.5-10.1 [facility] Comment on above: Performed By: #### L 500.2500, L100.0100 #### [facility] [address] [place], [address] Chloride [Moles/Vol] 101 mmol/L Normal 98-107 [facility] Comment on above: Performed By: #### L 500.2500, L100.0100 #### [facility] [address] [place], [address] CO2 [Moles/Vol] 23.0 mmol/L Normal 21.0-32.0 [facility] Comment on above: Performed By: #### L 500.2500, L100.0100 #### [facility] [address] [place], [address] Creatinine [Mass/Vol] 2.32 mg/dL High 0.55-1.02 [facility] Comment on above: Result Comment: The validity of the calculated GFR GFRAA in patients over 70 years has not been determined. Clinical correlation is essential. Performed By: #### L 500.2500, L100.0100 #### [facility] [address] [place], [address] ECRCL 18.17 ml/min Normal [facility] Comment on above: Performed By: #### L 500.2500, L100.0100 #### [facility] [address] [place], [address] EST GFR - AA 26 mL/min Low >60 [facility] Comment on above: Result Comment: Afri can Ecuadorean GFR Calc Performed By: #### L 500.2500, L100.0100 #### [facility] [address] [place], [address] GAP 8 Normal 5-15 [facility] Comment on above: Performed By: #### L 500.2500, L100.0100 #### [facility] [address] [place], [address] GFR/1.73 sq M.predicted among non-blacks MDRD (S/P/Bld) [Vol rate/Area] 22 mL/min/{1.73_m2} Low >60 [facility] Comment on above: Result Comment: Non- GFR Calc Performed By: #### L 500.2500, L100.0100 #### [facility] [address] [place], [address] Globulin (S) [Mass/Vol] 3.8 g/dL Normal 2.2-4.2 [facility] Comment on above: Performed By: #### L 500.2500, L100.0100 #### [facility] [address] [place], [address] Glucose [Mass/Vol] 149 mg/dL High 74-106 [facility] Comment on above: Result Comment: Fast ing Glucose result greater than or equal to 126 mg/dL suggests DIABETES MELLITUS per A.D.A. criteria. Performed By: #### L 500.2500, L100.0100 #### [facility] [address] [place], [address] Potassium [Moles/Vol] 4.2 mmol/L Normal 3.5-5.1 [facility] Comment on above: Performed By: #### L 500.2500, L100.0100 #### [facility] [address] [place], [address] Sodium [Moles/Vol] 133 mmol/L Low 136-145 [facility] Comment on above: Performed By: #### L 500.2500, L100.0100 #### [facility] [address] [place], [address] T PROT 6.6 g/dL Normal 6.4-8.2 [facility] Comment on above: Performed By: #### L 500.2500, L100.0100 #### [facility] [address] [place], [address] Urea nitrogen [Mass/Vol] 42 mg/dL High 7-18 [facility] Comment on above: Performed By: #### L 500.2500, L100.0100 #### [facility] [address] [place], [address] Consultation - Urologyon Consultation - Urology [facility] Medical Records Department [address] [place] [address] Consultation - Urology 03/12/24 0951 MR#: [id number] Acct: [id number] Name: GAYLE CHO Rep #: [id number] : 1950 73 From: Nirmal Zamora MD [...] possible infection I would avoid any procedures. [facility] Medical History Fatigue Syncope Fibromyalgia History [...] artery ( 10/29/12) Atherosclerotic heart disease of [place] coronary artery without angina pectoris Osteoarthritis Heart [...] 82.5 H, Lymph % (Auto) 6.4 L, [place] % (Auto) 9.4, Eos % (Auto) 0.4, Baso % (Auto) 0.2, A bsolute Neuts (auto) 14.9 H, Absolute L (more content not included)... Normal [facility] Emergency Department Summary on 03-12-2024 Emergency Department Summary [facility] Medical Records Department [address] [place] [address] Emergency Department Summary 03/12/24 MR#: [id number] Acct: [id number] Name: GAYLE CHO Rep #: [id number] : 1950 73 From: Steve Castanon DO PCP: Dr. Jessica Clark MD Status:DIS IN Location: [address] History of Present Illness Chief Complaint: [...] infection she was brought in for evaluation [facility] Medical History Fatigue Syncope Fibromyalgia History of [...] artery ( 10/29/12) Atherosclerotic heart disease of [place] coronary artery without angina pectoris Osteoarthritis Heart [...] Exam Const (more content not included)... Normal [facility] H AND P Exam - [facility] 03-12-2024 H&P Exam - Hospitalist [facility] Medical Records Department [address] [place] [address] H P Exam - Hospitalist 03/12/24 0307 MR#: [id number] Acct: [id number] Name: GAYLE CHO Rep #: [id number] : 1950 73 From: Donnell Savage DO [...] urology one week ago who presents to [facility] ER complaining of fever and generalized [...] is expected to extend beyond 2 midnights. [facility] Medical History Fatigue Syncope Fibromyalgia History [...] artery ( 10/29/12) Atherosclerotic heart disease of [place] coronary artery without angina pectoris Osteoarthritis Heart [...] 03/11/24 22: (more content not included)... Normal [facility] Lactic Acidon 03-12-2024 Lactate [Moles/Vol] 0.9 mmol/L Normal 0.4-1.9 [facility] Comment on above: Order Comment: Comme nts: if result >2, system reflex orders 2nd test @ 4hrs Y Performed By: #### L 503.6005 #### [facility] [address] [place], [address] Lactate [Moles/Vol] 0.9 mmol/L Normal 0.4-1.9 [facility] Comment on above: Order Comment: Y Performed By: #### L 503.6005 #### [facility] [address] [place], [address] M100.678on 03-12-2024 M100.678 Pending SARS-CoV-2 (COVID 19) Negative INFLUENZA A Negative INFLUENZA B Negative RSV PCR Negative Normal [facility] Comment on above: Performed By: #### L 500.2500, L100.0100 #### [facility] [address] [place], [address] Magnesiumon 03-12-2024 Magnesium [Mass/Vol] 1.9 mg/dL Normal 1.6-2.6 [facility] Comment on above: Performed By: #### L 501.2300, L501.5200, L501.9520 #### [facility] [address] [place], [address] Phosphoruson 03-12-2024 Phosphate [Mass/Vol] 3.0 mg/dL Normal 2.5-4.9 [facility] Comment on above: Performed By: #### L 501.2300, L501.5200, L501.9520 #### [facility] [address] [place], [address] Procalcitoninon 03-12-2024 Procalcitonin 4.09 ng/mL High 0.00-0.09 [facility] Comment on above: Result Comment: A [...] Performed By: #### L 500.2500, L100.0100 #### [facility] [address] [place], [address] Thyroid Stim Hormone (TSH)on 03-12-2024 TSH 0.445 uIU/mL Normal 0.358-3.74 0 [facility] Comment on above: Performed By: #### L 501.2300, L501.5200, L501.9520 #### [facility] [address] [facility] [place], [address] Urinalysis, Completeon 03-12 BACTERIA 3+ /hpf Normal None Seen [facility] Comment on above: Order Comment: COLOR OF URINE MAY AFFECT DIPSTICK RESULTS. FOREST RANGER TO SPECIFY Performed By: #### L 400.0001 #### [facility] [address] [place], [address] RBC > 100 SEEN Normal 0-5 [facility] Comment on above: Order Comment: COLOR OF URINE MAY AFFECT DIPSTICK RESULTS. FOREST RANGER TO SPECIFY Performed By: #### L 400.0001 #### [facility] [address] [place], [address] WBC 50-100 SEEN Normal 0-5 [facility] Comment on above: Order Comment: COLOR OF URINE MAY AFFECT DIPSTICK RESULTS. FOREST RANGER TO SPECIFY Performed By: #### L 400.0001 #### [facility] [address] [place], [address] EPI,SQUAMOUS 0 SEEN Normal 5-10 [facility] Comment on above: Order Comment: COLOR OF URINE MAY AFFECT DIPSTICK RESULTS. FOREST RANGER TO SPECIFY Performed By: #### L 400.0001 #### [facility] [address] [place], [address] Mucus Ql (Urine sed) 0 SEEN Normal [facility] Comment on above: Order Comment: COLOR OF URINE MAY AFFECT DIPSTICK RESULTS. FOREST RANGER TO SPECIFY Performed By: #### L 400.0001 #### [facility] [address] [place] [place], [address] Discharge Instructionon 02-18 Discharge Instruction [facility] Medical Records Department [address] [place] [address] Instructions for Home/Discharge Instructions 03/05/24 0836 MR#: [id number] Acct: [id number] Name: GAYLE CHO Rep #: [id number] : 1950 73 From: Nirmal Zamora MD PCP: Dr. Jessica Clark MD Status:REG [facility] Discharge Instructions Diet Discharge Diet: No restrictions Activity Discharge Activity: Return to Normal Activity and May Not Drive (while taking narcotic pain medications.) Dressing / Incision Call your doctor if you observe: Fever of 101 or Higher Follow Up Care Please Follow Up With: Nirmal Zamora MD When: Call [phone] for an appointment Test Results: Test results from this visit will be discussed in further detail at your follow-up appointment, if applicable. Discharge Plan Admission Attending Provider: Nirmal Zamora Primary Care Provider: Jessica Clark Instructions Print Language: Albanian Discharge Orders/Prescriptions Prescriptions: No Action levothyroxine 100 [...] MD CC: Dr. Jessica Clark MD Signed [facility] MR/POSTOP.[facility] 03-05-2024 MR/POSTOP.[facility] Medical Records Department [address] [place] [address] Anesthesia Postop Eval I 03/05/24 1219 MR#: [id number] Acct: [id number] Name: GAYLE CHO Rep #: [id number] : 1950 73 From: Cayetano Matos CRNA PCP: Dr. Jsesica Clark MD Status:REG SD Y Race: C Location: [place] [address] Anesthesia: Postop Eval I Current Vital Signs [...] completed: Yes 03/05/24 1220 Date Cayetano Matos SENIOR ABAP DEVELOPER Cosigner Signature: Date CC: Signed Normal [facility] MR/[id number] 03-05-2024 MR/POSTOPAN2 [facility] Medical Records Department [address] [place] [address] Anesthesia Postop Eval II 03/05/24 1735 MR#: [id number] Acct: [id number] Name: GAYLE CHO Rep #: [id number] : 1950 73 From: Bala Lacey MD PCP: Dr. Jessica Clark MD Status:[facility] Y Race: C Location: [facility] Anesthesia Postop Eval I Sum Postop Eval Completion status Anesthesia document: Postop Eval 1 completed: Yes Anesthesia Postop Eval I Summary Anesthesia Postop Eval I Summary: Anesthesia Postop Eval I: Assessment Summary Airway patent Yes 03/05/24 12:20 SENIOR ABAP [email or web address] Spontaneous unlabored Yes 03/05/24 12:20 SENIOR ABAP [email or web address].[email or web address] respirations Mental status Awake,Calm 03/05/24 12:20 SENIOR ABAP [email or web address].[email or web address] nausea No 03/05/24 12:20 SENIOR ABAP [email or web address].[email or web address] Vomiting No 03/05/24 12:20 SENIOR ABAP [email or web address].JBLOU Anesthesia Postop Eval I: Fluid Summary Crystalloid volume administer 1,000 03/05/24 12:20 SENIOR ABAP DEVELOPER.JBLOU (ml) Colloids volume administered ( ml) Blood Product volume administered (ml) Total IV fluid infused 1,000 03/05/24 12:20 SENIOR ABAP DEVELOPER.JBLOU Anesthesia Postop Eval I: Summary Notes Anesthesia Complication No 03/05/24 12:20 SENIOR ABAP [email or web address].JBLOU Anesthesia Complication Comment: Post-operative progress note Anesthesia: Postop Eval II Evaluation Mental status: Awake and Calm Pain Level: 1 nausea: No Vomiting: No Complications Anesthesia Complication: No 03/05/24 1735 Date Bala Lacey MD Cosigner Signature: Date CC: Signed Normal [facility] Operative Reporton 4 Operative Report [facility] Medical Records Department [address] [place] [address] Operative Report 03/05/24 1017 MR#: [id number] Acct: [id number] Name: GAYLE CHO Rep #: [id number] : 1950 73 From: Nirmal Zamora MD PCP: Dr. Jessica Clark MD Status:[facility] Location: [place] [address] Report of Operation Date of Procedure: 03/05/24 [...] over the Glidewire I used a 10 Nigerian dual-lumen catheter advanced the dual-lumen catheter up the ureter and then put the second Glidewire up into the kidney to secure access. Once both wires were in place the one wire was a working wire and the second wire was a safety wire. The safety wire was left in place and over the working wire went in with a 7.5 Nigerian flexible ureteroscope and I was able to [...] placed a stent it was a 6 Nigerian by 26 cm stent and the stent [...] General Anesthesiologi (more content not included)... Normal [facility] Urine Cultureon 02-14-2024 URC Culture exhibits no growth. Normal [facility] Comment on above: Performed By: #### L 500.2500, L100.0100 #### [facility] [address] [facility] [place], [address] Abdomen/Pelvis without Conto n 02-13-2024 Abdomen/Pelvis without Cont [facility] [address] [place] [address] Abdomen/Pelvis without Cont MR#: [id number] Acct: [id number] Name: GAYLE CHO Rep #: [id number] : 1950 F 73 From: Oliver Sr DO PCP: Dr. Jessica Clark MD Status: REG ER Study: Abdomen/Pelvis without Cont Date of Exam: 01/20 10/11 Exam# [id number] Ordering Dr: Brandan Millan DO [id number] STUDY: CT ABDOMEN AND PELVIS WITHOUT CONTRAST [...] 18:06 EDT Reading Location ID and State: [facility] / [place] Tel [phone], Service support , CC: Dr. Jessica Clark MD; Dr. Brandan Millan DO Medical Information Officer: Signed Normal [facility] CBC W/Diff, Automatedon - Absolute Lymph 3.17 X10 3/uL Normal 0.83-4.51 [facility] Comment on above: Performed By: #### L 500.2500, L100.0100 #### [facility] [address] [place], [place], [address] Absolute Neut 6.3 X10 3/uL Normal 2.0-7.7 [facility] Comment on above: Performed By: #### L 500.2500, L100.0100 #### [facility] [address] [place], [address] Basophils/100 WBC (Bld) 0.8 % Normal 0-1 [facility] Comment on above: Performed By: #### L 500.2500, L100.0100 #### [facility] [address] [place], [address] Eosinophils/100 WBC (Bld) 1.2 % Normal 0-5 [facility] Comment on above: Performed By: #### L 500.2500, L100.0100 #### [facility] [address] [place], [address] Erythrocyte distribution width (RBC) [Ratio] 13.9 % Normal 11.6-14.6 [facility] Comment on above: Performed By: #### L 500.2500, L100.0100 #### [facility] [address] [place], [address] Hematocrit (Bld) [Volume fraction] 44.4 % Normal 37-47 [facility] Comment on above: Performed By: #### L 500.2500, L100.0100 #### [facility] [address] [place], [address] Hemoglobin (Bld) [Mass/Vol] 14.5 g/dL Normal 12.0-15.0 [facility] Comment on above: Performed By: #### L 500.2500, L100.0100 #### [facility] [address] [place], [address] IG% 0.500 Normal 0.0-0.9 [facility] Comment on above: Result Comment: IG% - Immature Granulocytes (promyelocytes, myelocytes and metamyelocytes) > 1% indicates that a LEFT SHIFT is Present. Performed By: #### L 500.2500, L100.0100 #### [facility] [address] [place], [address] Lymphocytes/100 WBC (Bld) 30.1 % Normal 19-41 [facility] Comment on above: Performed By: #### L 500.2500, L100.0100 #### [facility] [address] [place], [address] MCH (RBC) [Entitic mass] 29.6 pg Normal 27.0-32.0 [facility] Comment on above: Performed By: #### L 500.2500, L100.0100 #### [facility] [address] [place], [address] MCHC (RBC) [Mass/Vol] 32.7 g/dL Normal 32-36 [facility] Comment on above: Performed By: #### L 500.2500, L100.0100 #### [facility] [address] [place], [address] MCV (RBC) [Entitic vol] 90.6 fL Normal 81-99 [facility] Comment on above: Performed By: #### L 500.2500, L100.0100 #### [facility] [address] [place], [address] Monocytes/100 WBC (Bld) 7.2 % Normal 0-10 [facility] Comment on above: Performed By: #### L 500.2500, L100.0100 #### [facility] [address] [place], [address] Neutrophils/100 WBC (Bld) 60.2 % Normal 47-70 [facility] Comment on above: Performed By: #### L 500.2500, L100.0100 #### [facility] [address] [place], [address] Nucleated RBC (Bld) [#/Vol] 0 10*3/uL Normal 0-5 [facility] Comment on above: Performed By: #### L 500.2500, L100.0100 #### [facility] [address] [place], [address] Platelet mean volume (Bld) [Entitic vol] 9.1 fL Normal 6.2-12.0 [facility] Comment on above: Performed By: #### L 500.2500, L100.0100 #### [facility] [address] [place], [address] Platelets (Bld) [#/Vol] 219 10*3/uL Normal 150-450 [facility] Comment on above: Performed By: #### L 500.2500, L100.0100 #### [facility] [address] [place], [address] RBC (Bld) [#/Vol] 4.90 10*6/uL Normal 4.2-5.4 [facility] Comment on above: Performed By: #### L 500.2500, L100.0100 #### [facility] [address] [place], [address] RDW SD 46.4 fl High 35.1-43.9 [facility] Comment on above: Performed By: #### L 500.2500, L100.0100 #### [facility] [address] [place], [address] WBC (Bld) [#/Vol] 10.5 10*3/uL Normal 4.4-11.0 [facility] Comment on above: Performed By: #### L 500.2500, L100.0100 #### [facility] [address] [place], [address] Comprehensive Metabolic Prof ilon 02-13-2024 Albumin [Mass/Vol] 3.6 g/dL Normal 3.2-5.0 [facility] Comment on above: Performed By: #### L 500.2500, L100.0100 #### [facility] [address] [place], [address] Albumin/Globulin [Mass ratio] 0.9 {ratio} Normal 0.9-2.4 [facility] Comment on above: Performed By: #### L 500.2500, L100.0100 #### [facility] [address] [place], [address] ALK P 102 U/L Normal 45-117 [facility] Comment on above: Performed By: #### L 500.2500, L100.0100 #### [facility] [address] [place], [address] ALT [Catalytic activity/Vol] 19 U/L Normal 13-56 [facility] Comment on above: Performed By: #### L 500.2500, L100.0100 #### [facility] [address] [place], [address] AST [Catalytic activity/Vol] 15 U/L Normal 15-37 [facility] Comment on above: Result Comment: Mode rate Hemolysis, Result may be falsely increased. Performed By: #### L 500.2500, L100.0100 #### [facility] [address] [place], [address] Bilirubin [Mass/Vol] 0.80 mg/dL Normal 0.20-1.00 [facility] Comment on above: Result Comment: For patients on eltrombopag therapy, use of [facility] TBIL is not recommended. Performed By: #### L 500.2500, L100.0100 #### [facility] [address] [place], [address] BUN/CRE 13.0 RATIO Normal 10-20 [facility] Comment on above: Performed By: #### L 500.2500, L100.0100 #### [facility] [address] [place], [address] CA,Total 9.7 mg/dL Normal 8.5-10.1 [facility] Comment on above: Performed By: #### L 500.2500, L100.0100 #### [facility] [address] [place], [address] Chloride [Moles/Vol] 105 mmol/L Normal 98-107 [facility] Comment on above: Performed By: #### L 500.2500, L100.0100 #### [facility] [address] [place], [address] CO2 [Moles/Vol] 25.0 mmol/L Normal 21.0-32.0 [facility] Comment on above: Performed By: #### L 500.2500, L100.0100 #### [facility] [address] [place], [address] Creatinine [Mass/Vol] 1.38 mg/dL High 0.55-1.02 [facility] Comment on above: Result Comment: The validity of the calculated GFR GFRAA in patients over 70 years has not been determined. Clinical correlation is essential. Performed By: #### L 500.2500, L100.0100 #### [facility] [address] [place], [address] ECRCL 30.62 ml/min Normal [facility] Comment on above: Performed By: #### L 500.2500, L100.0100 #### [facility] [address] [place], [address] EST GFR - AA 48 mL/min Low >60 [facility] Comment on above: Result Comment: Afri can Ecuadorean GFR Calc Performed By: #### L 500.2500, L100.0100 #### [facility] [address] [place], [address] GAP 5 Normal 5-15 [facility] Comment on above: Performed By: #### L 500.2500, L100.0100 #### [facility] [address] [place], [address] GFR/1.73 sq M.predicted among non-blacks MDRD (S/P/Bld) [Vol rate/Area] 40 mL/min/{1.73_m2} Low >60 [facility] Comment on above: Result Comment: Non- GFR Calc Performed By: #### L 500.2500, L100.0100 #### [facility] [address] [place], [address] Globulin (S) [Mass/Vol] 4.0 g/dL Normal 2.2-4.2 [facility] Comment on above: Performed By: #### L 500.2500, L100.0100 #### [facility] [address] [place], [address] Glucose [Mass/Vol] 126 mg/dL High 74-106 [facility] Comment on above: Result Comment: Fast ing Glucose result greater than or equal to 126 mg/dL suggests DIABETES MELLITUS per A.D.A. criteria. Performed By: #### L 500.2500, L100.0100 #### [facility] [address] [place], [address] Potassium [Moles/Vol] 4.1 mmol/L Normal 3.5-5.1 [facility] Comment on above: Result Comment: Mode rate Hemolysis, Result may be falsely increased. Performed By: #### L 500.2500, L100.0100 #### [facility] [address] [place], [address] Sodium [Moles/Vol] 135 mmol/L Low 136-145 [facility] Comment on above: Performed By: #### L 500.2500, L100.0100 #### [facility] [address] [place], [address] T PROT 7.6 g/dL Normal 6.4-8.2 [facility] Comment on above: Performed By: #### L 500.2500, L100.0100 #### [facility] Laboratory [address] [place], [address] Urea nitrogen [Mass/Vol] 18 mg/dL Normal 7-18 [facility] Comment on above: Performed By: #### L 500.2500, L100.0100 #### [facility] Laboratory [address] [place], [address] Emergency Department Summary on 02-13-2024 Emergency Department Summary [facility] Medical Records Department [address] [place] [address] Emergency Department Summary 02/13/24 MR#: [id number] Acct: [id number] Name: GAYLE CHO Rep #: [id number] : 1950 73 From: Brandan Millan DO [...] hematuria. Patient denies any fevers or chills. 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 Normal [facility] Urinalysis, Completeon 02-12 BACTERIA 1+ /hpf Normal None Seen [facility] Comment on above: Order Comment: CLEAN CATCH Performed By: #### L 100.0100, L500.2500 #### [facility] Laboratory [address] [place], [address] RBC 0-5 SEEN Normal 0-5 [facility] Comment on above: Order Comment: CLEAN CATCH Performed By: #### L 100.0100, L500.2500 #### [facility] Laboratory [address] [place], [address] EPI,SQUAMOUS 5-10 SEEN Normal 5-10 [facility] Comment on above: Order Comment: CLEAN CATCH Performed By: #### L 100.0100, L500.2500 #### [facility] Laboratory [address] [place], [address] WBC 10-25 SEEN Normal 0-5 [facility] Comment on above: Order Comment: CLEAN CATCH Performed By: #### L 100.0100, L500.2500 #### [facility] Laboratory [address] [place], [address] Mucus Ql (Urine sed) 0 SEEN Normal [facility] Comment on above: Order Comment: CLEAN CATCH Performed By: #### L 100.0100, L500.2500 #### [facility] [address] [place], [address] Urine Cultureon 02-05-2024 URC Escherichia coli [place] Count >100,000 Escherichia coli: REACTION Ampicillin Islt [...] TMP SMX Islt SHANA <=20 S Normal [facility] Comment on above: Performed By: #### L 100.0100, L500.2500 #### [facility] Laboratory [address] [place], [address] Abdomen/Pelvis without Conto n 02-03-2024 Abdomen/Pelvis without Cont [facility] Imaging Services [address] [place] [address] Abdomen/Pelvis without Cont MR#: [id number] Acct: [id number] Name: GAYLE CHO Rep #: [id number] : 1950 F 73 From: Perry Walsh PCP: Dr. Jessica Clark MD Status: REG ER Study: Abdomen/Pelvis without Cont Date of Exam: 01/19 10/11 Exam# [id number] Ordering Dr: Tracee Morrison DO [id number] STUDY: CT Abdomen And Pelvis W/O Contrast [...] Jessica Clark MD; Dr. Tracee Morrison DO Medical Information Officer: Signed Normal [facility] CBC W/Diff, Automatedon 01-19 Absolute Lymph 2.33 X10 3/uL Normal 0.83-4.51 [facility] Comment on above: Performed By: #### L 100.0100, L500.2500 #### [facility] Laboratory [address] [place], [address] Absolute Neut 9.2 X10 3/uL High 2.0-7.7 [facility] Comment on above: Performed By: #### L 100.0100, L500.2500 #### [facility] Laboratory [address] [place], [address] Basophils/100 WBC (Bld) 0.6 % Normal 0-1 [facility] Comment on above: Performed By: #### L 100.0100, L500.2500 #### [facility] Laboratory [address] [place], [address] Eosinophils/100 WBC (Bld) 0.9 % Normal 0-5 [facility] Comment on above: Performed By: #### L 100.0100, L500.2500 #### [facility] Laboratory [address] [place], [address] Erythrocyte distribution width (RBC) [Ratio] 13.8 % Normal 11.6-14.6 [facility] Comment on above: Performed By: #### L 100.0100, L500.2500 #### [facility] Laboratory [address] [place], [address] Hematocrit (Bld) [Volume fraction] 47.2 % High 37-47 [facility] Comment on above: Performed By: #### L 100.0100, L500.2500 #### [facility] Laboratory [address] [place], [address] Hemoglobin (Bld) [Mass/Vol] 15.5 g/dL High 12.0-15.0 [facility] Comment on above: Performed By: #### L 100.0100, L500.2500 #### [facility] Laboratory [address] [place], [address] IG% 0.500 Normal 0.0-0.9 [facility] Comment on above: Result Comment: IG% - Immature Granulocytes (promyelocytes, myelocytes and metamyelocytes) > 1% indicates that a LEFT SHIFT is Present. Performed By: #### L 100.0100, L500.2500 #### [facility] Laboratory [address] [place], [address] Lymphocytes/100 WBC (Bld) 19.0 % Normal 19-41 [facility] Comment on above: Performed By: #### L 100.0100, L500.2500 #### [facility] Laboratory [address] [place], [address] MCH (RBC) [Entitic mass] 29.7 pg Normal 27.0-32.0 [facility] Comment on above: Performed By: #### L 100.0100, L500.2500 #### [facility] Laboratory [address] [place], [address] MCHC (RBC) [Mass/Vol] 32.8 g/dL Normal 32-36 [facility] Comment on above: Performed By: #### L 100.0100, L500.2500 #### [facility] Laboratory [address] [place], [address] MCV (RBC) [Entitic vol] 90.4 fL Normal 81-99 [facility] Comment on above: Performed By: #### L 100.0100, L500.2500 #### [facility] Laboratory [address] [place], [address] Monocytes/100 WBC (Bld) 4.5 % Normal 0-10 [facility] Comment on above: Performed By: #### L 100.0100, L500.2500 #### [facility] Laboratory [address] [place], [address] Neutrophils/100 WBC (Bld) 74.5 % High 47-70 [facility] Comment on above: Performed By: #### L 100.0100, L500.2500 #### [facility] Laboratory [address] [place], [address] Nucleated RBC (Bld) [#/Vol] 0 10*3/uL Normal 0-5 [facility] Comment on above: Performed By: #### L 100.0100, L500.2500 #### [facility] Laboratory [address] [place], [address] Platelet mean volume (Bld) [Entitic vol] 9.1 fL Normal 6.2-12.0 [facility] Comment on above: Performed By: #### L 100.0100, L500.2500 #### [facility] Laboratory [address] [place], [address] Platelets (Bld) [#/Vol] 238 10*3/uL Normal 150-450 [facility] Comment on above: Performed By: #### L 100.0100, L500.2500 #### [facility] Laboratory [address] [place], [address] RBC (Bld) [#/Vol] 5.22 10*6/uL Normal 4.2-5.4 [facility] Comment on above: Performed By: #### L 100.0100, L500.2500 #### [facility] Laboratory [address] [place], [address] RDW SD 45.7 fl High 35.1-43.9 [facility] Comment on above: Performed By: #### L 100.0100, L500.2500 #### [facility] Laboratory [address] [place], [address] WBC (Bld) [#/Vol] 12.3 10*3/uL High 4.4-11.0 [facility] Comment on above: Performed By: #### L 100.0100, L500.2500 #### [facility] Laboratory [address] [place], [address] Comprehensive Metabolic Prof ilon 02-03-2024 Albumin [Mass/Vol] 3.9 g/dL Normal 3.2-5.0 [facility] Comment on above: Performed By: #### L 100.0100, L500.2500 #### [facility] Laboratory [address] [place], [address] Albumin/Globulin [Mass ratio] 0.9 {ratio} Normal 0.9-2.4 [facility] Comment on above: Performed By: #### L 100.0100, L500.2500 #### [facility] Laboratory [address] [place], [address] ALK P 120 U/L High 45-117 [facility] Comment on above: Performed By: #### L 100.0100, L500.2500 #### [facility] Laboratory [address] [place], [address] ALT [Catalytic activity/Vol] 20 U/L Normal 13-56 [facility] Comment on above: Performed By: #### L 100.0100, L500.2500 #### [facility] Laboratory [address] [place], [address] AST [Catalytic activity/Vol] 17 U/L Normal 15-37 [facility] Comment on above: Performed By: #### L 100.0100, L500.2500 #### [facility] Laboratory [address] [place], [address] Bilirubin [Mass/Vol] 0.90 mg/dL Normal 0.20-1.00 [facility] Comment on above: Result Comment: For patients on eltrombopag therapy, use of [facility] TBIL is not recommended. Performed By: #### L 100.0100, L500.2500 #### [facility] Laboratory [address] [place], [address] BUN/CRE 9.6 RATIO Low 10-20 [facility] Comment on above: Performed By: #### L 100.0100, L500.2500 #### [facility] Laboratory [address] [place], [address] CA,Total 10.4 mg/dL High 8.5-10.1 [facility] Comment on above: Performed By: #### L 100.0100, L500.2500 #### [facility] Laboratory [address] [place], [address] Chloride [Moles/Vol] 104 mmol/L Normal 98-107 [facility] Comment on above: Performed By: #### L 100.0100, L500.2500 #### [facility] Laboratory [address] [place], [address] CO2 [Moles/Vol] 25.0 mmol/L Normal 21.0-32.0 [facility] Comment on above: Performed By: #### L 100.0100, L500.2500 #### [facility] Laboratory [address] [place], [address] Creatinine [Mass/Vol] 1.46 mg/dL High 0.55-1.02 [facility] Comment on above: Result Comment: The validity of the calculated GFR GFRAA in patients over 70 years has not been determined. Clinical correlation is essential. Performed By: #### L 100.0100, L500.2500 #### [facility] Laboratory [address] [place], [address] EST GFR - AA 45 mL/min Low >60 [facility] Comment on above: Result Comment: Afri can [place] GFR Calc Performed By: #### L 100.0100, L500.2500 #### [facility] Laboratory [address] [place], [address] GAP 8 Normal 5-15 [facility] Comment on above: Performed By: #### L 100.0100, L500.2500 #### [facility] Laboratory [address] [place], [address] GFR/1.73 sq M.predicted among non-blacks MDRD (S/P/Bld) [Vol rate/Area] 37 mL/min/{1.73_m2} Low >60 [facility] Comment on above: Result Comment: Non- GFR Calc Performed By: #### L 100.0100, L500.2500 #### [facility] Laboratory [address] [place], [address] Globulin (S) [Mass/Vol] 4.3 g/dL High 2.2-4.2 [facility] Comment on above: Performed By: #### L 100.0100, L500.2500 #### [facility] Laboratory [address] [place], [address] Glucose [Mass/Vol] 152 mg/dL High 74-106 [facility] Comment on above: Result Comment: Fast ing Glucose result greater than or equal to 126 mg/dL suggests DIABETES MELLITUS per A.D.A. criteria. Performed By: #### L 100.0100, L500.2500 #### [facility] Laboratory [address] [place], [address] Potassium [Moles/Vol] 4.0 mmol/L Normal 3.5-5.1 [facility] Comment on above: Performed By: #### L 100.0100, L500.2500 #### [facility] Laboratory [address] [place], [address] Sodium [Moles/Vol] 137 mmol/L Normal 136-145 [facility] Comment on above: Performed By: #### L 100.0100, L500.2500 #### [facility] Laboratory [address] [place], [address] T PROT 8.2 g/dL Normal 6.4-8.2 [facility] Comment on above: Performed By: #### L 100.0100, L500.2500 #### [facility] Laboratory [address] [place], [address] Urea nitrogen [Mass/Vol] 14 mg/dL Normal 7-18 [facility] Comment on above: Performed By: #### L 100.0100, L500.2500 #### [facility] Laboratory [address] [place], [address] Emergency Department Summary on 02-03-2024 Emergency Department Summary [facility] Medical Records Department [address] [place] [address] Emergency Department Summary 02/03/24 MR#: [id number] Acct: [id number] Name: GAYLE CHO Rep #: [id number] : 1950 73 From: Tracee Morrison DO [...] 3 weeks ago. No prior abdominal surgeries. [facility] Medical History Accelerated hypertension Acute biliary pancreatitis Anxiety Arthritis Atherosclerotic heart disease of [place] coronary artery without angina pectoris Atrial fibrillation [...] Denies alvino (more content not included)... Normal [facility] Lactic Acidon 02-03-2024 Lactate [Moles/Vol] 1.2 mmol/L Normal 0.4-1.9 [facility] Comment on above: Order Comment: Y Performed By: #### L 100.0100, L500.2500 #### [facility] Laboratory [address] [place], [place], [address] Urinalysis, Completeon 02-02 BACTERIA 2+ /hpf Normal None Seen [facility] Comment on above: Order Comment: CLEAN CATCH Performed By: #### L 100.0100, L500.2500 #### [facility] Laboratory [address] [place], [place], [address] EPI,SQUAMOUS 0-5 SEEN Normal 5-10 [facility] Comment on above: Order Comment: CLEAN CATCH Performed By: #### L 100.0100, L500.2500 #### [facility] Laboratory [address] [place], [address] WBC 50-100 SEEN Normal 0-5 [facility] Comment on above: Order Comment: CLEAN CATCH Performed By: #### L 100.0100, L500.2500 #### [facility] Laboratory [address] [place], [address] Mucus Ql (Urine sed) 0 SEEN Normal [facility] Comment on above: Order Comment: CLEAN CATCH Performed By: #### L 100.0100, L500.2500 #### [facility] Laboratory [address] [place], [address] RBC 0 SEEN Normal 0-5 [facility] Comment on above: Order Comment: CLEAN CATCH Performed By: #### L 100.0100, L500.2500 #### [facility] Laboratory [address] [place], [address] CBC W Auto Differential pane l (Bld)on 01-02-2024 Basophils (Bld) [#/Vol] 0.06 10*3/uL [facility] Basophils/100 WBC (Bld) 0.6 % [facility] Differential cell count method Nom (Bld) Auto [facility] Eosinophils (Bld) [#/Vol] 0.25 10*3/uL [facility] Eosinophils/100 WBC (Bld) 2.6 % [facility] Erythrocyte distribution width (RBC) [Ratio] 14.0 % 11.5 - 15.0 % [facility] Hematocrit (Bld) [Volume fraction] 45.7 % 36.0 - 46.0 % [facility] Hemoglobin (Bld) [Mass/Vol] 14.6 g/dL 11.5 - 15.5 g/dL [facility] Immature granulocytes (Bld) [#/Vol] 0.03 10*3/uL [facility] Immature granulocytes/100 WBC (Bld) 0.3 % [facility] Lymphocytes (Bld) [#/Vol] 3.35 10*3/uL [facility] Lymphocytes/100 WBC (Bld) 34.5 % [facility] MCH (RBC) [Entitic mass] 29.9 pg 26.0 - 34.0 pg [facility] MCHC (RBC) [Mass/Vol] 31.9 g/dL 30.5 - 36.0 g/dL [facility] MCV (RBC) [Entitic vol] 93.6 fL 80.0 - 100.0 fL [facility] Monocytes (Bld) [#/Vol] 0.80 10*3/uL NINF [facility] Monocytes/100 WBC (Bld) 8.2 % [facility] Neutrophils (Bld) [#/Vol] 5.22 10*3/uL [facility] Neutrophils/100 WBC (Bld) 53.8 % [facility] Nucleated RBC (Bld) [#/Vol] NINF [facility] Nucleated RBC/100 WBC (Bld) [Ratio] 0.0 % /100 WBC [facility] Platelet mean volume (Bld) [Entitic vol] 9.4 fL 9.0 - 12.7 fL [facility] Platelets (Bld) [#/Vol] 242 10*3/uL [facility] RBC (Bld) [#/Vol] 4.88 10*6/uL 3.90 - 5.20 m/uL [facility] WBC (Bld) [#/Vol] 9.71 10*3/uL [facility] UA DIP, URINE (POC)on 2023 BILIRUBIN UA (POCT) Negative Negative [facility] CLARITY UA (POCT) Cloudy [facility] COLOR UA (POCT) Yellow [facility] GLUCOSE UA (POCT) Negative Negative mg/dL [facility] Hemoglobin Ql (U) Trace-intact Abnormal Negative [facility] Interpretation and review of laboratory results Abnormal [facility] KETONE UA (POCT) Negative Negative mg/dL [facility] LEUKOCYTES UA (POCT) Small Abnormal Negative [facility] NITRITE UA (POCT) Positive Abnormal Negative [facility] PH UA (POCT) 5.5 4.5 - 8.0 [facility] Protein Ql (U) 30 mg/dL Abnormal Negative [facility] SPECIFIC GRAVITY UA (POCT) 1.020 1.005 - 1.030 [facility] UROBILINOGEN UA (POCT) 0.2 Normal E.U./dL [facility] Location:[facility], [address] [place] [address], [place], [address] [facility] POINT OF CARE [facility] Absolute lymphocyte countOrd ered By: Denzel Cody on 01-04-2023 Lymphocytes Auto (Unsp spec) [#/Vol] 2.50 10*3/uL 0.83-4.51 [facility] Basophil percentageOrdered B y: Denzel Cody on 01-04-2023 Basophil percentage 50-100 SEEN /hpf 0-5 [facility] Basophils/100 WBC (Bld) 0.5 % 0-1 [facility] Chloride [Moles/Vol] 108 mmol/L 98-107 [facility] Eosinophils/100 WBC (Bld) 2.2 % 0-5 [facility] Glucose [Mass/Vol] 103 mg/dL 74-106 [facility] Comment on above: Fasting Glucose resu lt from 100 to 125 mg/dL suggests IMPAIRED HOMEOSTASIS per A.D.A. criteria. Neutrophils (Bld) [#/Vol] 7.8 10*3/uL 2.0-7.7 [facility] Neutrophils/100 WBC (Bld) 67.5 % 47-70 [facility] Potassium [Moles/Vol] 3.5 mmol/L 3.5-5.1 [facility] Sodium [Moles/Vol] 140 mmol/L 136-145 [facility] WBC (Bld) [#/Vol] 11.6 10*3/uL 4.4-11.0 [facility] Bilirubin Test strip Ql (U)O rdered By: Denzel Cody on 01-04-2023 Bilirubin Ql (U) Negative Negative [facility] Blood erythrocytes count (nu mber/volume)Ordered By: Denzel Cody on 01-04-2023 RBC (Bld) [#/Vol] 4.83 10*6/uL 4.2-5.4 [facility] Blood hemoglobin measurement (mass/volume)Ordered By: Denzel Cody on 01-04-2023 Hemoglobin (Bld) [Mass/Vol] 14.5 g/dL 12.0-15.0 [facility] Blood lymphocytes/100 leukoc ytesOrdered By: Denzel Cody on 01-04-2023 Lymphocytes/100 WBC (Bld) 21.6 % 19-41 [facility] Blood monocytes/100 leukocyt esOrdered By: Denzel Cody on 01-04-2023 Monocytes/100 WBC (Bld) 7.9 % 0-10 [facility] Blood platelet mean volumeOr dered By: Denzel Cody on 01-04-2023 Platelet mean volume (Bld) [Entitic vol] 9.1 fL 6.2-12.0 [facility] Determination of erythrocyte mean corpuscular volume (MCV)Ordered By: Denzel Cody on 01-04-2023 MCV (RBC) [Entitic vol] 92.3 fL 81-99 [facility] Hematocrit Auto (Bld) [Volum e fraction]Ordered By: Denzel Cody on 01-04-2023 Hematocrit (Bld) [Volume fraction] 44.6 % 37-47 [facility] Ketones Test strip Ql (U)Ord ered By: Denzel Cody on 01-04-2023 Ketones Ql (U) 5 mg/dl Negative [facility] Laboratory - Chemistry and C hemistry - challengeOrdered By: Denzel Cody on 01-04-2023 CO2 [Moles/Vol] 29.0 mmol/L 21.0-32.0 [facility] Urea nitrogen/Creatinine [Mass ratio] 12.6 mg/mg 10-20 [facility] Laboratory - Hematology and Cell countsOrdered By: Denzel Cody on 01-04-2023 Erythrocyte distribution width (RBC) [Entitic vol] 48.5 fL 35.1-43.9 [facility] Erythrocyte distribution width (RBC) [Ratio] 14.3 % 11.6-14.6 [facility] Immature granulocytes/100 WBC (Bld) 0.300 % 0.0-0.9 [facility] Comment on above: IG% - Immature Granu locytes (promyelocytes, myelocytes and metamyelocytes) > 1% indicates that a LEFT SHIFT is Present. MCH (RBC) [Entitic mass] 30.0 pg 27.0-32.0 [facility] Nucleated RBC/100 WBC (Bld) [Ratio] 0 % 0-5 [facility] MCHC Auto (RBC) [Mass/Vol]Or dered By: Denzel Cody on 01-04-2023 MCHC (RBC) [Mass/Vol] 32.5 g/dL 32-36 [facility] Mucus LM Ql (Urine sed)Order ed By: Denzel Cody on 01-04-2023 Mucus Ql (Urine sed) 0 SEEN /hpf [facility] Nitrite Test strip Ql (U)Ord ered By: Denzel Cody on 01-04-2023 Nitrite Ql (U) Positive Negative [facility] No Panel InformationOrdered By: Denzel Cody on 01-04-2023 Estimated Creatinine Clearance Calc 26.26 ml/min [facility] Estimated GFR (MDRD) Amer 49 mL/min >60 [facility] Comment on above: GFR Calc Estimated GFR (MDRD) Non-Af Amer 41 mL/min >60 [facility] Comment on above: Non- GFR Calc Platelets bldOrdered By: Chicho Cody on 01-04-2023 Platelets (Bld) [#/Vol] 206 10*3/uL 150-450 [facility] Protein Test strip Ql (U)Ord ered By: Denzel Cody on 01-04-2023 Protein Ql (U) 500 mg/dl Negative [facility] Serum or plasma calcium tania urement (mass/volume)Ordered By: Denzel Cody on 01-04-2023 Calcium [Mass/Vol] 9.2 mg/dL 8.5-10.1 [facility] Serum or plasma creatinine m easurement (mass/volume)Ordered By: Denzel Cody on 01-04-2023 Creatinine [Mass/Vol] 1.35 mg/dL 0.55-1.02 [facility] Comment on above: The validity of the calculated GFR & GFRAA in patients over 70 years has not been determined. Clinical correlation is essential. Serum or plasma urea nitroge n measurement (mass/volume)Ordered By: Denzel Cody on 01-04-2023 Urea nitrogen [Mass/Vol] 17 mg/dL 7-18 [facility] Squamous epithelial cells de tection in urine sediment by light microscopyOrdered By: Denzel Cody on 01-04-2023 Epithelial cells.squamous LM Ql (Urine sed) 0-5 SEEN /hpf 5-10 [facility] Thin prep Papanicolaou smear with manual screeningOrdered By: Denzel Cody on 01-04-2023 Thin prep Papanicolaou smear with manual screening 3 5-15 [facility] UA DIP, URINE (POC)on 2022 BILIRUBIN UA (POCT) Large Abnormal Negative [facility] CLARITY UA (POCT) Cloudy [facility] COLOR UA (POCT) Red [facility] GLUCOSE UA (POCT) 100 mg/dL Abnormal Negative mg/dL [facility] Hemoglobin Ql (U) Large Abnormal Negative [facility] KETONE UA (POCT) 40 mg/dL Abnormal Negative mg/dL [facility] LEUKOCYTES UA (POCT) Large [facility] (POCT) Negative Negative [facility] PH UA (POCT) 8.5 Abnormal 4.5 - 8.0 [facility] Protein Ql (U) >=300 Abnormal Negative mg/dL [facility] SPECIFIC GRAVITY UA (POCT) <=1.005 Abnormal 1.005 - 1.030 [facility] UROBILINOGEN UA (POCT) 4.0 E.U./dL Abnormal Normal E.U./dL [facility] Urine blood detectionOrdered By: Denzel Cody on 01-04-2023 RBC Ql (U) 250 /ul Negative [facility] RBC Ql (U) > 100 SEEN /hpf 0-5 [facility] Urine clarityOrdered By: Chicho Cody on 01-04-2023 Clarity (U) Cloudy Clear [facility] Urine color determinationOrd ered By: Denzel Cody on 01-04-2023 Color (U) Red Yellow [facility] Urine glucose detectionOrder ed By: Denzel Cody on 01-04-2023 Glucose Ql (U) Normal mg/dl Normal [facility] Urine leukocyte esterase det ection by dipstickOrdered By: Denzel Cody on 01-04-2023 Leukocyte esterase Test strip Ql (U) 500 /ul Negative [facility] Urine pHOrdered By: Denzel sebastian on 01-04-2023 pH (U) 6.5 [pH] 5.0 - 8.0 [facility] Urine sediment bacteria coun t by microscopy (number/high power field)Ordered By: Denzel Cody on 01-04-2023 Bacteria LM.HPF (Urine sed) [#/Area] 2 /[HPF] None Seen [facility] Urine specific gravity measu rementOrdered By: Denzel Cody on 01-04-2023 Specific gravity (U) [Rel density] 1.010 1.002-1.03 0 [facility] Urobilinogen Auto test strip Ql (U)Ordered By: Denzel Cody on 01-04-2023 Urobilinogen Ql (U) Normal mg/dl Normal [facility] CBC W Auto Differential pane l (Bld)on 10-03-2022 Basophils (Bld) [#/Vol] 0.05 10*3/uL <0.11 k/uL [facility] Basophils/100 WBC (Bld) 0.6 % [facility] Differential cell count method Nom (Bld) Auto [facility] Eosinophils (Bld) [#/Vol] 0.31 10*3/uL <0.46 k/uL [facility] Eosinophils/100 WBC (Bld) 3.5 % [facility] Erythrocyte distribution width (RBC) [Ratio] 13.2 % 11.5 - 15.0 % [facility] Hematocrit (Bld) [Volume fraction] 42.6 % 36.0 - 46.0 % [facility] Hemoglobin (Bld) [Mass/Vol] 13.8 g/dL 11.5 - 15.5 g/dL [facility] Immature granulocytes (Bld) [#/Vol] 0.03 10*3/uL <0.10 k/uL [facility] Immature granulocytes/100 WBC (Bld) 0.3 % [facility] Lymphocytes (Bld) [#/Vol] 2.40 10*3/uL 1.00 - 4.00 k/uL [facility] Lymphocytes/100 WBC (Bld) 27.5 % [facility] MCH (RBC) [Entitic mass] 29.9 pg 26.0 - 34.0 pg [facility] MCHC (RBC) [Mass/Vol] 32.4 g/dL 30.5 - 36.0 g/dL [facility] MCV (RBC) [Entitic vol] 92.2 fL 80.0 - 100.0 fL [facility] Monocytes (Bld) [#/Vol] 0.83 10*3/uL <0.87 k/uL [facility] Monocytes/100 WBC (Bld) 9.5 % [facility] Neutrophils (Bld) [#/Vol] 5.12 10*3/uL 1.45 - 7.50 k/uL [facility] Neutrophils/100 WBC (Bld) 58.6 % [facility] Nucleated RBC (Bld) [#/Vol] <0.01 k/uL [facility] Nucleated RBC/100 WBC (Bld) [Ratio] 0.0 /100 WBC [facility] Platelet mean volume (Bld) [Entitic vol] 9.2 fL 9.0 - 12.7 fL [facility] Platelets (Bld) [#/Vol] 216 10*3/uL 150 - 400 k/uL [facility] RBC (Bld) [#/Vol] 4.62 10*6/uL 3.90 - 5.20 m/uL [facility] WBC (Bld) [#/Vol] 8.74 10*3/uL 3.70 - 11.00 k/uL [facility] XR Chest PA and Lateralon IMPRESSION: Stable exam without acute findings. Medical Information Officer: EMILI Transcribe Date/Time: Oct 03 2022 11:21A Dictated by : GIGI CORTES MD This examination was interpreted and the report reviewed and electronically signed by: GIGI CORTES MD on Oct 03 2022 11:22AM [facility] DIVISION OF RADIOLOGY * * *Final Report* [...] soft tissues: Unremarkable. DIVISION OF RADIOLOGY Provider, [facility] - 10/03/2022 * * *Final [...] IMPRESSION IMPRESSION: Stable exam without acute findings. Medical Information Officer: EMILI Transcribe Date/Time: Oct 03 2022 11:21A Dictated by : GIGI CORTES MD This examination was interpreted and the report reviewed and electronically signed by: GIGI CORTES MD on Oct 03 2022 11:22AM EST [facility] Radiology Study observation (narrative) [facility] XR Chest PA and LateralOrder ed By: Ccf Provider on 10-03-2022 [facility] XR CHEST 2V FRONTAL/LATon [facility] XR Chest PA and Lateralon IMPRESSION: No developing abnormality or acute process. Medical Information Officer: EMILI Transcribe Date/Time: Mar 31 2022 1:47P Dictated by : AARON PETERS MD This examination was interpreted and the report reviewed and electronically signed by: AARON PETERS MD on Mar 31 2022 1:48PM [facility] DIVISION OF RADIOLOGY * * *Final Report* [...] IMPRESSION: No developing abnormality or acute process. Medical Information Officer: EMILI Transcribe Date/Time: Mar 31 2022 1:47P Dictated by : AARON PETERS MD This examination was interpreted and the report reviewed and electronically signed by: AARON PETERS MD on Mar 31 2022 1:48PM EST [facility] Radiology Study observation (narrative) [facility] XR Chest PA and LateralOrder ed By: Ccf Provider on 03-31-2022 [facility] Basic metabolic 2000 panelon 10-18-2021 Anion gap [Moles/Vol] 9 mmol/L 9 - 18 mmol/L [facility] Calcium [Mass/Vol] 9.6 mg/dL 8.5 - 10. 2 mg/dL [facility] Chloride [Moles/Vol] 102 mmol/L 97 - 10 5 mmol/L [facility] CO2 [Moles/Vol] 24 mmol/L 22 - 30 mmol/L [facility] Creatinine [Mass/Vol] 1.68 mg/dL High 0.58 - 0.96 mg/dL [facility] Estimated Glomerular Filtration Rate 32 mL/min/1.73m Low >=60 mL/min/1.7 3m [facility] Glucose [Mass/Vol] 99 mg/dL 74 - 99 mg/dL [facility] Potassium [Moles/Vol] 4.2 mmol/L 3.7 - 5.1 mmol/L [facility] Sodium [Moles/Vol] 135 mmol/L Low 136 - 144 mmol/L [facility] Urea nitrogen [Mass/Vol] 28 mg/dL High 7 - 21 mg/dL [facility] CBC W Auto Differential pane l (Bld)on 10-18-2021 Abs Immature Gran 0.12 k/uL High <0.10 k/uL [facility] Basophils (Bld) [#/Vol] 0.04 10*3/uL <0.11 k/uL [facility] Basophils/100 WBC (Bld) 0.3 % [facility] Differential cell count method Nom (Bld) Auto [facility] Eosinophils (Bld) [#/Vol] 0.03 10*3/uL <0.46 k/uL [facility] Eosinophils/100 WBC (Bld) 0.2 % [facility] Erythrocyte distribution width (RBC) [Ratio] 15.4 % High 11.5 - 15.0 % [facility] Hematocrit (Bld) [Volume fraction] 36.1 % 36.0 - 46.0 % [facility] Hemoglobin (Bld) [Mass/Vol] 12.1 g/dL 11.5 - 15.5 g/dL [facility] Immature Gran % 0.8 % [facility] Lymphocytes (Bld) [#/Vol] 2.40 10*3/uL 1.00 - 4.00 k/uL [facility] Lymphocytes/100 WBC (Bld) 15.7 % [facility] MCH (RBC) [Entitic mass] 29.6 pg 26.0 - 34.0 pg [facility] MCHC (RBC) [Mass/Vol] 33.5 g/dL 30.5 - 36.0 g/dL [facility] MCV (RBC) [Entitic vol] 88.3 fL 80.0 - 100.0 fL [facility] Monocytes (Bld) [#/Vol] 1.65 10*3/uL High <0.87 k/uL [facility] Monocytes/100 WBC (Bld) 10.8 % [facility] Neutrophils (Bld) [#/Vol] 11.02 10*3/uL High 1.45 - 7.50 k/uL [facility] Neutrophils/100 WBC (Bld) 72.2 % [facility] Nucleated RBC (Bld) [#/Vol] 10*3/uL <0.01 k/uL [facility] Nucleated RBC/100 WBC (Bld) [Ratio] 0.0 /100 WBC [facility] Platelet mean volume (Bld) [Entitic vol] 9.5 fL 9.0 - 12.7 fL [facility] Platelets (Bld) [#/Vol] 170 10*3/uL 150 - 400 k/uL [facility] RBC (Bld) [#/Vol] 4.09 10*6/uL 3.90 - 5.20 m/uL [facility] WBC (Bld) [#/Vol] 15.26 10*3/uL High 3.70 - 11.00 k/uL [facility] UA DIP, URINE (POC)on 2021 BILIRUBIN UA (POCT) Negative Negative [facility] CLARITY UA (POCT) Clear [facility] COLOR UA (POCT) Radha [facility] GLUCOSE UA (POCT) Negative Negative mg/dL [facility] HEMOGLOBIN/BLOOD UA (POCT) Moderate Abnormal Negative [facility] KETONE UA (POCT) Negative Negative mg/dL [facility] LEUKOCYTES UA (POCT) Large Abnormal Negative [facility] NITRITE UA (POCT) Positive Abnormal Negative [facility] PH UA (POCT) 6.0 4.5 - 8.0 [facility] Protein Ql (U) 100 mg/dL Abnormal Negative mg/dL [facility] SPECIFIC GRAVITY UA (POCT) 1.010 1.005 - 1.030 [facility] UROBILINOGEN UA (POCT) 0.2 E.U./dL Normal E.U./dL [facility] Color of specimen determinat ionon 08-26-2021 Color (Unsp spec) Not Reportable [facility] Work Phone: Measurement of weight of sto neon 08-26-2021 Weight (Stone) Not Reportable [facility] Work Phone: Origin of Stoneon 08-26-2021 Origin Nom (Stone) See comment [facility] Work Phone: Comment on above: TEST RESULT LIMITSSt one Analysis Source Not provided Color [place] Size 3x3 mm Single piece received. Weight 15.0 mg Composition Percentage (Represents the % composition) Calcium Oxalate Monohydrate 30 % Uric Acid 70 %Photo Photograph will follow under a separate coverComment: Physician questions regarding [facility] Analysis contact [facility] at: [phone].Please note: [facility] report will follow via computer, mail or jacquard plate maker delivery.Disclaimer: This test was developed and its performance characteristics determined by [facility]. It has not been cleared or approved by the Food and Drug Administration. TESTING PERFORMED AT [facility]. ORIGINAL REPORT ON FILE IN LAB CONTAINS ADDITIONAL TEST SITE INFORMATION. Size of stoneon 08-26-2021 Size (Stone) [Entitic vol] Not Reportable [facility] Work Phone: Absolute lymphocyte counton 08-12-2021 Lymphocytes Auto (Unsp spec) [#/Vol] 2.76 10*3/uL 0.83-4.51 [facility] Work Phone: [phone] Basophil percentageon 2021 Basophil percentage >100 SEEN /hpf [facility] Work Phone: Comment on above: Microscopic field is filled. Other elements may be obscured. Basophils/100 WBC (Bld) 2.9 % 0-1 [facility] Work Phone: [phone] Chloride [Moles/Vol] 107 mmol/L 98-107 [facility] Work Phone: [phone] Eosinophils/100 WBC (Bld) 0.5 % 0-5 [facility] Work Phone: [phone] Glucose [Mass/Vol] 144 mg/dL 74-106 [facility] Work Phone: Comment on above: Fasting Glucose resu lt greater than or equal to 126 mg/dL suggests DIABETES MELLITUS per A.D.A. criteria. Lymphocytes/100 WBC (Bld) 28.5 % 19-41 [facility] Work Phone: [phone] Monocytes/100 WBC (Bld) 8.5 % 0-10 [facility] Work Phone: [phone] Neutrophils (Bld) [#/Vol] 5.8 10*3/uL 2.0-7.7 [facility] Work Phone: [phone] Neutrophils/100 WBC (Bld) 59.3 % 47-70 [facility] Work Phone: [phone] Potassium [Moles/Vol] 3.5 mmol/L 3.5-5.1 [facility] Work Phone: [phone] Sodium [Moles/Vol] 140 mmol/L 136-145 [facility] Work Phone: [phone] WBC (Bld) [#/Vol] 9.7 10*3/uL 4.4-11.0 [facility] Work Phone: [phone] Bilirubin Test strip Ql (U)o n 08-12-2021 Bilirubin Ql (U) Negative Negative [facility] Work Phone: Blood erythrocytes count (nu mber/volume)on 08-12-2021 RBC (Bld) [#/Vol] 4.68 10*6/uL 4.2-5.4 [facility] Work Phone: Blood hemoglobin measurement (mass/volume)on 08-12-2021 Hemoglobin (Bld) [Mass/Vol] 13.6 g/dL 12.0-15.0 [facility] Work Phone: Blood platelet mean volumeon 08-12-2021 Platelet mean volume (Bld) [Entitic vol] 9.2 fL 6.2-12.0 [facility] Work Phone: Culture, urineon 08-12-2021 Bacteria identified Cx Nom (U) Escherichia coli [facility] Work Phone: Determination of erythrocyte mean corpuscular volume (MCV)on 08-12-2021 MCV (RBC) [Entitic vol] 88.0 fL 81-99 [facility] Work Phone: Glucose Glucometer (BldC) [M ass/Vol]on 08-12-2021 Glucose [Mass/Vol] 127 mg/dL 74-106 [facility] Work Phone: Comment on above: MANAGEMENT OF PATIEN T CARE PER NURSING PROTOCOL Hematocrit Auto (Bld) [Volum e fraction]on 08-12-2021 Hematocrit (Bld) [Volume fraction] 41.2 % 37-47 [facility] Work Phone: Ketones Test strip Ql (U)on 08-12-2021 Ketones Ql (U) Negative Negative [facility] Work Phone: Laboratory - Chemistry and C hemistry - challengeon 08-12-2021 CO2 [Moles/Vol] 28.0 mmol/L 21.0-32.0 [facility] Work Phone: Magnesium [Mass/Vol] 2.0 mg/dL 1.6-2.6 [facility] Work Phone: Urea nitrogen/Creatinine [Mass ratio] 13.3 mg/mg 10-20 [facility] Work Phone: Laboratory - Hematology and Cell countson 08-12-2021 Erythrocyte distribution width (RBC) [Entitic vol] 44.8 fL 35.1-43.9 [facility] Work Phone: Erythrocyte distribution width (RBC) [Ratio] 13.9 % 11.6-14.6 [facility] Work Phone: Immature granulocytes/100 WBC (Bld) 0.300 % 0.0-0.9 [facility] Work Phone: Comment on above: IG% - Immature Granu locytes (promyelocytes, myelocytes and metamyelocytes) > 1% indicates that a LEFT SHIFT is Present. MCH (RBC) [Entitic mass] 29.1 pg 27.0-32.0 [facility] Work Phone: Nucleated RBC/100 WBC (Bld) [Ratio] 0 % 0-5 [facility] Work Phone: Laboratory - Microbiology an d Antimicrobial susceptibilityon 08-12-2021 Bacteria identified Cx Nom (Bld) No growth in 5 days. [facility] Work Phone: MCHC Auto (RBC) [Mass/Vol]on 08-12-2021 MCHC (RBC) [Mass/Vol] 33.0 g/dL 32-36 [facility] Work Phone: Mucus LM Ql (Urine sed)on Mucus Ql (Urine sed) 0 SEEN /hpf [facility] Work Phone: Nitrite Test strip Ql (U)on 08-12-2021 Nitrite Ql (U) Negative Negative [facility] Work Phone: No Panel Informationon 08-12 Estimated Creatinine Clearance Calc 28.12 ml/min [facility] Work Phone: Estimated GFR (MDRD) Amer 52 mL/min >60 [facility] Work Phone: Estimated GFR (MDRD) Non-Af Amer 43 mL/min >60 [facility] Work Phone: Thyroid Stimulating Hormone (TSH) 0.86 uIU/mL 0.358-3.74 [facility] Work Phone: Platelets bldon 08-12-2021 Platelets (Bld) [#/Vol] 219 10*3/uL 150-450 [facility] Work Phone: Protein Test strip Ql (U)on 08-12-2021 Protein Ql (U) 500 mg/dl Negative [facility] Work Phone: Serum or plasma calcium tania urement (mass/volume)on 08-12-2021 Calcium [Mass/Vol] 9.6 mg/dL 8.5-10.1 [facility] Work Phone: Serum or plasma creatinine m easurement (mass/volume)on 08-12-2021 Creatinine [Mass/Vol] 1.28 mg/dL 0.55-1.02 [facility] Work Phone: Comment on above: The validity of the calculated GFR & GFRAA in patients over 70 years has not been determined. Clinical correlation is essential. Serum or plasma urea nitroge n measurement (mass/volume)on 08-12-2021 Urea nitrogen [Mass/Vol] 17 mg/dL 7-18 [facility] Work Phone: [phone] Squamous epithelial cells de tection in urine sediment by light microscopyon 08-12-2021 Epithelial cells.squamous LM Ql (Urine sed) 5-10 SEEN /hpf [facility] Work Phone: [phone] Thin prep Papanicolaou smear with manual screeningon 08-12-2021 Thin prep Papanicolaou smear with manual screening 5 5-15 [facility] Work Phone: [phone] Urine blood detectionon - RBC Ql (U) 250 /ul Negative [facility] Work Phone: RBC Ql (U) > 100 SEEN /hpf [facility] Work Phone: [phone] Urine clarityon 08-12-2021 Clarity (U) Turbid Clear [facility] Work Phone: Urine color determinationon 08-12-2021 Color (U) Red Yellow [facility] Work Phone: [phone] Urine glucose detectionon Glucose Ql (U) Normal mg/dl Normal [facility] Work Phone: [phone] Urine leukocyte esterase det ection by dipstickon 08-12-2021 Leukocyte esterase Test strip Ql (U) 500 /ul Negative [facility] Work Phone: [phone] Urine pHon 08-12-2021 pH (U) 6.0 [pH] [facility] Work Phone: [phone] Urine sediment bacteria coun t by microscopy (number/high power field)on 08-12-2021 Bacteria LM.HPF (Urine sed) [#/Area] 0 /[HPF] None Seen [facility] Work Phone: [phone] Urine specific gravity measu rementon 08-12-2021 Specific gravity (U) [Rel density] 1.025 [facility] Work Phone: [phone] Urobilinogen Auto test strip Ql (U)on 08-12-2021 Urobilinogen Ql (U) Normal mg/dl Normal [facility] Work Phone: XR Toes - left 3 Viewson IMPRESSION: No acute bony finding. Mild degenerative findings [facility] Information Officer[facility] Transcribe Date/Time: Aug 04 2021 3:40P Dictated [...] soft tissue calcification DIVISION OF RADIOLOGY Provider, [facility] - 08/04/2021 * * *Final Report* [...] No acute bony finding. Mild degenerative findings Medical Information Officer: [facility] Transcribe Date/Time: Aug 04 2021 3:40P Dictated by : SARI MORA MD This examination was interpreted and the report reviewed and electronically signed by: SARI MORA MD on Aug 04 2021 3:44PM EST [facility] Radiology Study observation (narrative) [facility] XR Toes - left 3 ViewsOrdere d By: Ccf Provider on 08-04-2021 [facility] XR Pelvis and Hip - right AP and Lateral frogon 09-13-2020 IMPRESSION: 1. Degenerative changes as discussed calcified 2. There are again noted be multiple calcifications projecting over the RIGHT lower abdomen. These could represent calcifications within the kidney or calcified lymph nodes Medical Information Officer: EMILI Transcribe Date/Time: Sep 13 2020 1:50P Dictated by : JOSE CAMACHO DO This examination was interpreted and the report reviewed and electronically signed by: JOSE CAMACHO DO on Sep 13 2020 1:52PM [facility] DIVISION OF RADIOLOGY * * *Final Report* [...] within the kidney or calcified lymph nodes Medical Information Officer: EMILI Transcribe Date/Time: Sep 13 2020 1:50P Dictated by : JOSE CAMACHO DO This examination was interpreted and the report reviewed and electronically signed by: JOSE CAMACHO DO on Sep 13 2020 1:52PM EST [facility] Radiology Study observation (narrative) [facility] XR Pelvis and Hip - right AP and Lateral frogOrdered By: Ccf Provider on 09-13-2020 [facility] OBSOLETEon 10-03-2017 OBSOLETE Refill (AGCARDWST) ----GAYLE CHO ([id number]) 1950 FDate Time Provider Department10/03/17 HARDIK PERDOMOT [...] Status:Closed by BHAVYA GOLD LPN on 10/04/17 [facility] OBSOLETEon 09-13-2017 OBSOLETE Refill (AGCARDWST) ----[facility][id number][facility] 1950 [facility] HARDIK PERDOMO Daily AGCARDWST [...] Status:Closed by FANNY BROOKE MA on 09/13/17 [facility] Lewis 08-14-2017 [facility] Office Visit (AGCARDWST) ----GAYLE CHO ([id number]) 1950 FDate Time Provider Department08/14/17 2:30 PM [...] - metBeta xochitl for ASHD with prior VA or prior LVEFANDlt;40 (NQF 0070) - N/ABeta [...] verbalizesunderstanding and agrees with treatment plan.DIAGNOSIS FOR VISIT:[facility] OF PRESENT ILLNESSGayle Cho returns for [...] impaired, butstable. LDL was 81.Electronically Signed:Hardik Perdomo [facility] 2017 3:12 [facility]: Foster Reyes Chi, MD 08/14/2017 3:12 [...] programs in your area.Referring Provider: HARDIK PERDOMO [[id number]]Allergies As of Date: 08/14/2017 Noted Allergy ReactionANTIHISTIMINE [...] W INTERP (MED OFFICE) [ECG06] Order #: [id number] as of 08/14/2017 Sig: LOSARTAN 50 MG [...] the following areas and commit to making shelter changes. EAT A WHOLE FOOD, PLANT BASED [...] your area.Follow-up and Disposition History RecordedEncounter Number: [id number] Status:Closed by HARDKI PERDOMO MD on 08/15/17 [facility] PROGRESSon 08-14-2017 PROGRESS HNO ID: [id number] thor: [place]: (none)Author Type: PhysicianType: Progress NotesFiled: 08/15/2017 9:16 AMNote Text:PERTINENT CARDIAC HISTORYASHD - s/p PCI 03/01, 10/31HTNHLDMOSA - CPAPADHERENCE TO GUIDELINESACE-I or ARB for HF with prior LVEF<40 (NQF 0081) - N/AASA or Plavix for ASHD (NQF 0067) - metBeta xochitl for ASHD with prior VA or prior LVEF<40 (NQF 0070) - N/ABeta [...] verbalizesunderstanding and agrees with treatment plan.DIAGNOSIS FOR VISIT:FRANCISCA OF PRESENT ILLNESSGayle Cho returns for follow-up [...] mildly impaired, butstable. LDL was 81.Electronically Signed:Hardik ePrdomo, [facility] 2017 3:12 PMCC: Parviz Ontiveros MD [facility] Vital Signs Date Time Vital Sign Value Performing Clinician Facility 01-12-2025 13:48-0400 Body mass index (BMI) [Ratio] 25.75 kg/m2 Angélica Morataya APRN.[employer] TR[employer] DRIVER Work Phone: [facility] 01-12-2025 13:48-0400 Body weight 68.04 kg Angélica Older BRICK POINTER.[employer] Work Phone: [facility] 01-12-2025 13:48-0400 Diastolic blood pressure 80 mm[Hg] Angélica Morataya APRN.[employer] TR[employer] DRIVER Work Phone: [facility] 01-12-2025 13:48-0400 Heart rate 76 /min Angélica Older BRICK POINTER.[employer] TR[employer] DRIVER Work Phone: [facility] 01-12-2025 13:48-0400 Respiratory rate 16 /min Angélica Older BRICK POINTER.[employer] TR[employer] DRIVER Work Phone: [facility] 01-12-2025 13:48-0400 SaO2% (BldA) [Mass fraction] 98 % Angélica Older BRICK POINTER.[employer] TR[employer] DRIVER Work Phone: [facility] 01-12-2025 13:48-0400 Systolic blood pressure 168 mm[Hg] Angélica Older BRICK POINTER.[employer] TR[employer] DRIVER Work Phone: [facility] 03-24-2024 16:43-0500 Diastolic blood pressure 68 mm[Hg] Jsesica Clark MD Work Phone: [facility] 03-24-2024 16:43-0500 Systolic blood pressure 160 mm[Hg] Jessica Clark MD Work Phone: [facility] 03-24-2024 15:56-0500 Body mass index (BMI) [Ratio] 25.58 kg/m2 Jessica Clark MD Work Phone: [facility] 03-24-2024 15:56-0500 Body weight 67.59 kg Jessica Clark MD Work Phone: [facility] 03-24-2024 15:56-0500 Heart rate 73 /min Jessica Clark MD Work Phone: [facility] 03-24-2024 15:56-0500 Respiratory rate 16 /min Jessica Clark MD Work Phone: [facility] 01-02-2024 11:46-0400 Body mass index (BMI) [Ratio] 26.43 kg/m2 Angélica Older BRICK POINTER.[employer] TR[employer]IVER Work Phone: [facility] 01-02-2024 11:46-0400 Body weight 69.85 kg Angélica Older BRICK POINTER.[employer] TR[employer] DRIVER Work Phone: [facility] 01-02-2024 11:46-0400 Diastolic blood pressure 102 mm[Hg] Angélica Older BRICK POINTER.[employer] TR[employer] DRIVER Work Phone: [facility] 01-02-2024 11:46-0400 Heart rate 70 /min Angélica Older BRICK POINTER.[employer] TR[employer] DRIVER Work Phone: [facility] 01-02-2024 11:46-0400 Respiratory rate 16 /min Angélica Older BRICK POINTER.[employer] TR[employer]IVER Work Phone: [facility] 01-02-2024 11:46-0400 SaO2% (BldA) [Mass fraction] 97 % Angélica Older BRICK POINTER.[employer] TR[employer] DRIVER Work Phone: [facility] 01-02-2024 11:46-0400 Systolic blood pressure 178 mm[Hg] Angélica Older BRICK POINTER.[employer] TR[employer] DRIVER Work Phone: [facility] 01-04-2023 21:41-0400 Diastolic blood pressure 90 mm[Hg] [place] [facility] 01-04-2023 21:41-0400 Heart rate 87 /min [facility] 01-04-2023 21:41-0400 Respiratory rate 22 /min [facility] 01-04-2023 21:41-0400 SaO2% (BldA) [Mass fraction] 99 % [facility] 01-04-2023 21:41-0400 Systolic blood pressure 254 mm[Hg] [facility] 01-04-2023 17:36-0400 Body height 152.4 cm [facility] 01-04-2023 17:36-0400 Body mass index (BMI) [Ratio] 30.4 kg/m2 [facility] 01-04-2023 17:36-0400 Body temperature 97.9 [degF] [facility] 01-04-2023 17:36-0400 Body weight 70.76 kg [facility] 01-04-2023 16:53-0400 Body temperature 98.01 [degF] Flor Botello BRICK POINTER.OTR TRUCK DRIVER Work Phone: [facility] 01-04-2023 16:53-0400 Body weight 70.76 kg Flor Botello BRICK POINTER.OTR TRUCK DRIVER Work Phone: [facility] 01-04-2023 16:53-0400 Diastolic blood pressure 105 mm[Hg] Flor Botello BRICK POINTER.OTR TRUCK DRIVER Work Phone: [facility] 01-04-2023 16:53-0400 Heart rate 69 /min Flor Botello BRICK POINTER.[employer]R TRUCK DRIVER Work Phone: [facility] 01-04-2023 16:53-0400 Respiratory rate 18 /min Flor Botello BRICK POINTER.OTR TRUCK DRIVER Work Phone: [facility] 01-04-2023 16:53-0400 SaO2% (BldA) [Mass fraction] 99 % Flor Botello BRICK POINTER.[employer]R TRUCK DRIVER Work Phone: [facility] 01-04-2023 16:53-0400 Systolic blood pressure 239 mm[Hg] Flor Botello BRICK POINTER.OTR TRUCK DRIVER Work Phone: [facility] 10-02-2022 18:03-0400 Body temperature 100.9 [degF] Natalee Veronique BRICK POINTER.OTR TRUCK DRIVER Work Phone: [facility] 10-02-2022 18:03-0400 Body weight 70.22 kg Natalee Veronique BRICK POINTER.OTR TRUCK DRIVER Work Phone: [facility] 10-02-2022 18:03-0400 Diastolic blood pressure 104 mm[Hg] Natalee Veronique BRICK POINTER.OTR TRUCK DRIVER Work Phone: [facility] 10-02-2022 18:03-0400 Heart rate 78 /min Natalee Veronique BRICK POINTER.OTR TRUCK DRIVER Work Phone: [facility] 10-02-2022 18:03-0400 Respiratory rate 16 /min Natalee Veronique BRICK POINTER.OTR TRUCK DRIVER Work Phone: [facility] 10-02-2022 18:03-0400 SaO2% (BldA) [Mass fraction] 96 % Natalee Veronique BRICK POINTER.OTR TRUCK DRIVER Work Phone: [facility] 10-02-2022 18:03-0400 Systolic blood pressure 238 mm[Hg] Natalee Veronique BRICK POINTER.OTR TRUCK DRIVER Work Phone: [facility] 07-03-2022 13:50-0500 Diastolic blood pressure 74 mm[Hg] Angélica Morataya BRICK POINTER.OTR TRUCK DRIVER Work Phone: [facility] 07-03-2022 13:50-0500 Heart rate 63 /min Angélica Older BRICK POINTER.OTR TRUCK DRIVER Work Phone: [facility] 07-03-2022 13:50-0500 Systolic blood pressure 177 mm[Hg] Angélica Older BRICK POINTER.OTR TRUCK DRIVER Work Phone: [facility] 07-03-2022 13:38-0500 Body weight 68.95 kg Angélica Older BRICK POINTER.OTR TRUCK DRIVER Work Phone: [facility] 07-03-2022 13:38-0500 SaO2% (BldA) [Mass fraction] 97 % Angélica Older BRICK POINTER.OTR TRUCK DRIVER Work Phone: [facility] 03-31-2022 12:03-0500 Diastolic blood pressure 80 mm[Hg] Angélica Older BRICK POINTER.OTR TRUCK DRIVER Work Phone: [facility] 03-31-2022 12:03-0500 Systolic blood pressure 152 mm[Hg] Angélica Older BRICK POINTER.OTR TRUCK DRIVER Work Phone: [facility] 03-31-2022 11:23-0500 Body weight 66.68 kg Angélica Older BRICK POINTER.OTR TRUCK DRIVER Work Phone: [facility] 03-31-2022 11:23-0500 Heart rate 60 /min Angélica Older BRICK POINTER.[employer]R TRUCK DRIVER Work Phone: [facility] 03-31-2022 11:23-0500 Respiratory rate 16 /min Angélica Older BRICK POINTER.OTR TRUCK DRIVER Work Phone: [facility] 03-23-2022 12:15-0400 Diastolic blood pressure 83 mm[Hg] Mi Nurse Work Phone: [facility] 03-23-2022 12:15-0400 Heart rate 71 /min Mi Nurse Work Phone: [facility] 03-23-2022 12:15-0400 Systolic blood pressure 212 mm[Hg] Mi Nurse Work Phone: [facility] 10-18-2021 14:22-0400 Body temperature 99.61 [degF] Flor Botello BRICK POINTER.OTR TRUCK DRIVER Work Phone: [facility] 10-18-2021 14:22-0400 Body weight 65.32 kg Flor Botello BRICK POINTER.OTR TRUCK DRIVER Work Phone: [facility] 10-18-2021 14:22-0400 Diastolic blood pressure 72 mm[Hg] Flor Botello BRICK POINTER.OTR TRUCK DRIVER Work Phone: [facility] 10-18-2021 14:22-0400 Heart rate 73 /min Flor Botello BRICK POINTER.OTR TRUCK DRIVER Work Phone: [facility] 10-18-2021 14:22-0400 Respiratory rate 18 /min Flor Botello BRICK POINTER.OTR TRUCK DRIVER Work Phone: [facility] 10-18-2021 14:22-0400 SaO2% (BldA) [Mass fraction] 98 % Flor Botello BRICK POINTER.OTR TRUCK DRIVER Work Phone: [facility] 10-18-2021 14:22-0400 Systolic blood pressure 118 mm[Hg] Flor Botello BRICK POINTER.OTR TRUCK DRIVER Work Phone: [facility] 08-26-2021 11:17-0400 Body temperature 98.7 [degF] Dr. Jessica Clark Work Phone: [facility] Work Phone: 08-26-2021 11:17-0400 Diastolic blood pressure 73 mm[Hg] Dr. Jessica Clark Work Phone: [facility] Work Phone: 08-26-2021 11:17-0400 Heart rate 71 /min Dr. Jessica Clark Work Phone: [facility] Work Phone: 08-26-2021 11:17-0400 Respiratory rate 16 /min Dr. Jessica Clark Work Phone: [facility] Work Phone: 08-26-2021 11:17-0400 SaO2% (BldA) [Mass fraction] 93 % Dr. Jessica Clark Work Phone: [facility] Work Phone: 08-26-2021 11:17-0400 Systolic blood pressure 164 mm[Hg] Dr. Jessica Clark Work Phone: [facility] Work Phone: 08-26-2021 07:56-0400 Body height 152.[address] Jessica Clark Work Phone: [facility] Work Phone: 08-26-2021 07:56-0400 Body mass index (BMI) [Ratio] 28.4 kg/m2 Dr. Jessica Clark Work Phone: [facility] Work Phone: 08-26-2021 07:56-0400 Body weight [address] Jessica Clark Work Phone: [facility] Work Phone: 08-17-2021 13:13-0400 Body height 162.6 cm Jessica Clark MD Work Phone: [facility] 08-17-2021 13:13-0400 Body temperature 97.81 [degF] Jessica Clark MD Work Phone: [facility] 08-17-2021 13:13-0400 Body weight 67.13 kg Jessica Clark MD Work Phone: [facility] 08-17-2021 13:13-0400 Diastolic blood pressure 84 mm[Hg] Jessica Clark MD Work Phone: [facility] 08-17-2021 13:13-0400 Heart rate 74 /min Jessica Clark MD Work Phone: [facility] 08-17-2021 13:13-0400 Respiratory rate 16 /min Jessica Clark MD Work Phone: [facility] 08-17-2021 13:13-0400 SaO2% (BldA) [Mass fraction] 97 % Jessica Clark MD Work Phone: [facility] 08-17-2021 13:13-0400 Systolic blood pressure 200 mm[Hg] Jessica Clark MD Work Phone: [facility] 08-12-2021 16:08-0400 SaO2% (BldA) [Mass fraction] 91 % Dr. Jessica Clark Work Phone: [facility] Work Phone: 08-12-2021 13:16-0400 Body temperature 98 [degF] Dr. Jessica Clark Work Phone: [facility] Work Phone: 08-12-2021 13:16-0400 Diastolic blood pressure 84 mm[Hg] Dr. Jessica Clark Work Phone: [facility] Work Phone: 08-12-2021 13:16-0400 Heart rate 79 /min Dr. Jessica Clark Work Phone: [facility] Work Phone: 08-12-2021 13:16-0400 Respiratory rate 16 /min Dr. Jessica Clark Work Phone: [facility] Work Phone: 08-12-2021 13:16-0400 Systolic blood pressure 147 mm[Hg] Dr. Jessica Clark Work Phone: [facility] Work Phone: 08-12-2021 04:54-0400 Body height 152.[address] Jessica Clark Work Phone: [facility] Work Phone: 08-12-2021 04:54-0400 Body mass index (BMI) [Ratio] 29.2 kg/m2 Dr. Jessica Clark Work Phone: [facility] Work Phone: 08-12-2021 04:54-0400 Body weight 67.[address] Jessica Clark Work Phone: [facility] Work Phone: Encounters Encounter Date Encounter Type Care Provider Facility Start: 02-09-2025 End: 02-09-2025 ambulatory ANGÉLICA MORATAYA Facility:[facility] Start: 01-23-2025 End: 01-23-2025 ambulatory JESSICA GRANADOSJAMILA Facility:[facility] Start: 01-16-2025 End: 01-22-2025 Follow-up encounter Angélica Morataya APRN.CNP Work Phone: [facility] [place] Start: 01-14-2025 ambulatory JESSICA CLARK Facility:[facility] Start: 01-14-2025 End: 01-14-2025 Subsequent hospital visit by physician [facility] [place] Work Phone: Radiology Comment on above: Weakness of both low er extremities [R29.898] Start: 01-12-2025 End: 01-12-2025 Refill Angélica Morataya APRN.CNP Work Phone: [facility] [place] Comment on above: Refill Request Start: 01-12-2025 End: 01-12-2025 Office outpatient visit 25 minutes Angélica Morataya APRN.CNP Work Phone: [facility] [place] Comment on above: Other fatigue (Prima ry [...] 10-06-2024 End: 10-06-2024 ambulatory Rola Gastelum MA [facility] Start: 10-06-2024 End: 10-06-2024 Patient encounter procedure Rola Gastelum MA [facility] [place] Comment on above: Population Health Na vigation Outreach ([employer] [place] PCSA ) Start: 10-06-2024 End: 10-06-2024 Telephone encounter Rola Gastelum MA [facility] Start: 10-02-2024 End: 10-03-2024 Refill Jessica Clark MD Work Phone: [facility] [place] Comment on above: Refill Request Start: 09-03-2024 End: 09-03-2024 ambulatory Rola Gastelum MA [facility] Start: 09-03-2024 End: 09-03-2024 Patient encounter procedure Rola Gastelum MA [facility] [place] Comment on above: Population Health Na vigation Outreach ([employer] [place] PCSA ) Start: 08-04-2024 End: 08-04-2024 ambulatory Rola Gastelum MA [facility] [place] Start: 08-04-2024 End: 08-04-2024 Patient encounter procedure Rola Gastelum MA [facility] [place] Comment on above: Population Health Na vigation Outreach ([employer] [place] ) Start: 07-03-2024 End: 07-03-2024 ambulatory Rola Gastelum MA [facility] Start: 07-03-2024 End: 07-03-2024 Patient encounter procedure Rola Gastelum MA [facility] [place] Comment on above: Population Health Na vigation Outreach ([employer] [place] PCSA) Start: 06-25-2024 End: 06-26-2024 Refill Jessica Clark MD Work Phone: [facility] [place] Comment on above: Refill Request Start: 04-14-2024 End: 04-15-2024 Telephone encounter Jessica Clark MD Work Phone: [facility] [place] Comment on above: Patient Update Start: 04-08-2024 End: 04-08-2024 ambulatory Oskar Erickson MA [facility] Start: 04-08-2024 End: 04-08-2024 Patient encounter procedure Oskar Erickson [facility] [place] Comment on above: Population Health Na vigation Outreach ([employer] list 2023/) Start: 03-28-2024 End: 03-28-2024 ambulatory [facility] Facility:[facility] Start: 03-25-2024 End: 03-25-2024 ambulatory Delmar Gallegos RN Work Phone: [employer] Start: 03-25-2024 End: 03-26-2024 Telephone encounter Jessica Clark MD Work Phone: [facility] [place] Comment on above: HH orders Patient Question Start: 03-25-2024 End: 03-25-2024 Telephone follow-up Delmar Gallegos RN Work Phone: [employer] Comment on above: Transition Of Care ( [facility]- Follow-up Day 11) Started Weekly phone contact (Recurring) for Transitional Care Management Start: 03-24-2024 End: 03-24-2024 ambulatory [facility] Facility:[facility] Start: 03-24-2024 End: 03-24-2024 Office outpatient visit 25 minutes Jessica Clark MD Work Phone: [facility] [place] Comment on above: Uncontrolled hyperte nsion (Primary Dx); Vitamin D deficiency; Iron deficiency; Stage 3a chronic kidney disease (HCC); Hypothyroidism, unspecified type Start: 03-21-2024 End: 03-21-2024 ambulatory [facility]LICA [facility] Facility:[facility] Start: 03-18-2024 End: 04-03-2024 Patient Outreach Delmar Gallegos RN Work Phone: [employer] Comment on above: Transition Of Care ( [facility] Discharge 03/14/24) Initial phone contact for Transitional Care Management, Started Weekly phone contact (Recurring) for Transitional Care Management home health update Results Start: 03-14-2024 End: 03-21-2024 Telephone encounter Jessica Clark MD Work Phone: [facility] [place] Comment on above: home health requesti ng verbal orders Start: 03-12-2024 ambulatory Donnell Savage Facili ty:[facility] Start: 03-12-2024 End: 03-14-2024 Evaluation and management of inpatient [facility] Facility:[facility] Start: 03-05-2024 End: 03-05-2024 ambulatory Nirmal Zamora Facility:[facility] Start: 02-15-2024 End: 02-15-2024 Refill Jessica Clark MD Work Phone: Internal [facility] Comment on above: Refill Request Start: 02-13-2024 End: 02-13-2024 Emergency department patient visit [facility] Facility:[facility] Start: 02-08-2024 End: 02-08-2024 Telephone encounter Jessica Clark MD Work Phone: [facility] [place] Comment on above: Patient Update; Cons ult Start: 02-03-2024 End: 02-03-2024 Emergency department patient visit [facility] Facility:[facility] Start: 01-07-2024 End: 01-07-2024 Telephone encounter Angélica Morataya APRN.OTR TRUCK DRIVER Work Phone: [facility] [place] Comment on above: Results Start: 01-03-2024 Telephone encounter Angélica Morataya APRN.OTR TRUCK DRIVER Work Phone: [facility] [place] Comment on above: Results Start: 01-02-2024 End: 01-02-2024 Patient encounter procedure Angélica Morataya APRN.OTR TRUCK DRIVER Work Phone: [facility] [place] Comment on above: Right flank pain (Pr imary Dx); Lower abdominal pain; Other fatigue; Hypertensive kidney disease with stage 3a chronic kidney disease (HCC); Hypothyroidism, unspecified type; Hyperlipidemia, unspecified hyperlipidemia type; DC (obstructive sleep apnea); Vitamin D deficiency; Prediabetes; Benzodiazepine dependence (HCC) Start: 06-22-2023 Refill Jessica Walsh Work Phone: [facility] [place] Comment on above: Refill Request (90 d ays due to insurance) Start: 05-18-2023 Telephone encounter Jessica souza MD Work Phone: [facility] [place] Comment on above: Rx refill; not on me d list Start: 04-11-2023 Refill Jessica Walsh Work Phone: [facility] [place] Comment on above: Refill Request Start: 02-28-2023 Refill Sadie hopper MD Work Phone: [facility] [place] Comment on above: Refill Request Start: 01-04-2023 End: 01-04-2023 Emergency department patient visit [facility] Work Phone: Start: 01-04-2023 End: 01-04-2023 Patient encounter procedure Flor Botello BRICK POINTER.OTR TRUCK DRIVER Work Phone: [facility] Comment on above: Hematuria, unspecifi ed type (Primary Dx) Start: 12-19-2022 Refill Jessica Walsh Work Phone: [facility] [place] Comment on above: Refill Request Start: 10-03-2022 Telephone encounter Natalee Piper APRN.OTR TRUCK DRIVER Work Phone: [facility] Comment on above: Patient Update Start: 10-03-2022 End: 10-03-2022 Subsequent hospital visit by physician [facility] Work Phone: Radiology Comment on above: Acute cough [R05.1] Start: 10-02-2022 End: 10-02-2022 Patient encounter procedure Natalee Piper BRICK POINTER.OTR TRUCK DRIVER Work Phone: [facility] Comment on above: Acute cough (Primary Dx) Start: 08-28-2022 Refill Angélica Morataya APRN .OTR TRUCK DRIVER Work Phone: [facility] [place] Comment on above: Refill Request Start: 08-28-2022 Refill Jessica Walsh Work Phone: [facility] [place] Comment on above: Refill Request Medication Request Start: 07-12-2022 ambulatory Jessica Walsh Work Phone: [facility] [place] Start: 07-03-2022 End: 07-03-2022 Patient encounter procedure Angélica Morataya APRN.OTR TRUCK DRIVER Work Phone: [facility] [place] Comment on above: Other fatigue (Prima ry Dx); Hypertension, unspecified type; Hyperlipidemia, unspecified hyperlipidemia type; Chronic cough; Depression, unspecified depression type; Prediabetes; Hypothyroidism, unspecified type; Vitamin D deficiency Start: 06-13-2022 ambulatory Jessica Walsh Work Phone: Internal [facility] Start: 04-03-2022 Telephone encounter Angélica Morataya APRN.CNP Work Phone: [facility] [place] Comment on above: Results Start: 03-31-2022 Telephone encounter Jessica souza MD Work Phone: [facility] [place] Comment on above: Blood Pressure Results Start: 03-31-2022 End: 03-31-2022 Subsequent hospital visit by physician [facility] [place] Work Phone: Radiology Comment on above: Acute cough [R05.1] Start: 03-31-2022 End: 03-31-2022 Patient encounter procedure Angélica Morataya APRN.OTR TRUCK DRIVER Work Phone: [facility] [place] Comment on above: Hypertension, unspec ified type [...] 03-14-2022 ambulatory Jessica Walsh Work Phone: Internal [facility] Start: 03-14-2022 Refill Angélica EugeneOTR TRUCK DRIVER Work Phone: [facility] [place] Comment on above: Refill Request Start: 02-23-2022 Telephone encounter Jessica souza MD Work Phone: [facility] [place] Comment on above: Medication Problem Start: 12-09-2021 Refill No Pcp [facility] [place] Comment on above: Refill Request Start: 10-21-2021 Telephone encounter Rola Jacinta Zavala BRICK POINTER.OTR TRUCK DRIVER Work Phone: [facility] Comment on above: Results Start: 10-20-2021 End: 10-20-[address] Jessica Clark Work Phone: [facility] Start: 10-19-2021 Telephone encounter None None [facility] Comment on above: lab results fax to Jillian Zamora Start: 10-18-2021 End: 10-18-2021 Patient encounter procedure Flor Botello BRICK POINTER.OTR TRUCK DRIVER Work Phone: [facility] Comment on above: Gross hematuria (Brenda nicholas Dx) Start: 10-18-2021 Telephone encounter Flor new BRICK POINTER.OTR TRUCK DRIVER Work Phone: [facility] Comment on above: Results Start: 08-26-2021 End: 08-26-2021 Admission to same day surgery center Dr. Jessica Clark Work Phone: [facility] Start: 08-19-2021 Telephone encounter Angélica Morataya BRICK POINTER.OTR TRUCK DRIVER Work Phone: [facility] [place] Comment on above: Results Start: 08-17-2021 End: 08-17-2021 Patient encounter procedure Jessica Clark MD Work Phone: [facility] [place] Comment on above: Urinary tract infect ion without hematuria, site unspecified (Primary Dx); Urinary tract stones; Essential hypertension Start: 08-15-2021 Telephone encounter Jessica souza MD Work Phone: [facility] [place] Comment on above: Patient Update Start: 08-12-2021 Non-patient / Non-visit Dr. Mateo Clark Work Phone: [facility] Start: 08-12-2021 End: 08-12-2021 Evaluation and management of inpatient Dr. Jessica Clark Work Phone: [facility] Start: 08-04-2021 End: 08-04-2021 Subsequent hospital visit by physician [facility] Work Phone: Radiology Comment on above: Onychomycosis [B35.1 ] Start: 12-29-[address] Slim Clark Work Phone: [facility] Start: 09-13-2020 End: 09-13-2020 Subsequent hospital visit by physician [facility] Work Phone: Radiology Comment on above: Hip pain [M25.559] Start: 04-16-2018 Ambulatory PARVIZ-DENISA ONTIVEROS Facility:[facility] Start: 08-14-2017 End: 08-14-2017 Ambulatory [facility] Procedures Date Procedure Procedure Detail Performing Clinician Start: 01-12-2025 Urnls dip stick/tabl et rgnt auto w/o microscopy Angélica Older BRICK POINTER.[employer]R TRUCK DRIVER Work Phone: Start: 01-12-2025 Ecg routine ecg w/le ast 12 lds i&r only Angélica Older BRICK POINTER.OTR TRUCK DRIVER Work Phone: Start: 01-02-2024 Urnls dip stick/tabl et rgnt auto w/o microscopy Angélica Older BRICK POINTER.[employer]R TRUCK DRIVER Work Phone: Start: 01-02-2024 Lipid 1996 panel - S praveena or Plasma Angélica Older BRICK POINTER.OTR TRUCK DRIVER Work Phone: Start: 01-04-2023 Urnls dip stick/tabl et rgnt auto w/o microscopy Flor Botello BRICK POINTER.OTR TRUCK DRIVER Work Phone: Start: 10-03-2022 Radiologic exam ches t 2 views Natalee Veronique BRICK POINTER.OTR TRUCK DRIVER Work Phone: Start: 06-28-2022 Lipid 1996 panel - S rpaveena or Plasma Angélica Older BRICK POINTER.OTR TRUCK DRIVER Work Phone: Start: 03-31-2022 Radiologic exam ches t 2 views Angélica Older BRICK POINTER.OTR TRUCK DRIVER Work Phone: Start: 10-20-2021 CT of abdomen and pe lvis without contrast Dr. Jessica Clark Work Phone: Start: 10-18-2021 Urnls dip stick/tabl et rgnt auto w/o microscopy Flor Botello BRICK POINTER.OTR TRUCK DRIVER Work Phone: Start: 08-26-2021 Cystoscopy and retro [...] hip unilateral with pelvis 2-3 views Jessica Clark MD Work Phone: Start: 02-04-2019 Adult depression screening assessment Jessica Clark MD Work Phone: Start: 10-22-2012 History of placement of stent for coronary artery disease S/P coronary artery stent placement Jessica Clark MD Work Phone: Plan of Treatment Date Care Activity Detail Author Start: 01-01-2029 Lipid panel Lipid Screening [facility] Start: 01-13-2028 Diabetes Screening Diabetes Screenin g [facility] Start: 06-28-2027 Lipid panel Lipid Screening [facility] Start: 01-01-2027 Diabetes Screening Diabetes Screenin g [facility] Start: 01-12-2026 Annual PCP Team [employer] yenni Disease Visit Annual PCP Team Chronic Disease Visit [facility] Start: 01-12-2026 Complete blood count Hemoglobin/Justin tocrit [facility] Start: 01-12-2026 Creatinine measurement Serum Creatin ine [facility] Start: 07-14-2025 Diabetes Screening Diabetes Screenin g [facility] Start: 03-24-2025 Annual PCP Team [employer] yneni Disease Visit Annual PCP Team Chronic Disease Visit [facility] Start: 03-24-2025 Covid-19 Vaccine ( season) Covid-19 Vaccine ( season) [facility] Comment on above: Postponed from 01/19 (Declined at this time) Start: 03-24-2025 Pneumococcal Vaccine : 50+ (1 of 2 - PCV) Pneumococcal Vaccine: 50+ (1 of 2 - PCV) [facility] Comment on above: Postponed from 03/15 (Declined at this time) Start: 03-24-2025 Pneumococcal Vaccine : 65+ (1 of 2 - PCV) Pneumococcal Vaccine: 65+ (1 of 2 - PCV) [facility] Comment on above: Postponed from 03/15 (Declined at this time) Start: 03-24-2025 Screening for malign ant neoplasm of lung Lung Cancer Screening [facility] Comment on above: Postponed from 03/15 (Declined at this time) Start: 03-24-2025 Shingrix Vaccine (1 of 2) Zavala grix Vaccine (1 of 2) [facility] Comment on above: Postponed from 03/15 (Declined at this time) Start: 03-21-2025 Hepatitis B surface antibody level LDL Cholesterol [facility] Start: 02-09-2025 End: 02-09-2025 Patient encounter procedure 02/09/2025 11:40 AM EDT Office Visit [facility] [address] [place] [id number] Angélica Morataya APRN.OTR TRUCK DRIVER [address] [facility] [place] [id number] 4 week follow up [facility] [place] Comment on above: 4 week follow up Start: 01-23-2025 End: 01-23-2025 Patient encounter procedure 01/23/2025 8:50 AM EDT Office Visit Cardiology [address] [place] [id number] Dx: Other fatigue [R53.83]; History of non-ST [...] Office Visit Cardiology [address] [place] [id number] Dx: Other fatigue [R53.83]; History of non-ST [...] Elevated sed rate Expected: 01/21/2025, Expires: 04/22/2025 [facility] Comment on above: Expected: 01/21/2025 , Expires: 04/22/2025 Start: 01-21-2025 End: 04-22-2025 Rheumatoid factor [Units/volume] in Serum or Plasma RHEUMATOID FACTOR Lab Routine Other fatigue Muscle aches Multiple joint pain Elevated sed rate Expected: 01/21/2025, Expires: 04/22/2025 [facility] Work Phone: Comment on above: Expected: 01/21/2025 , Expires: 04/22/2025 Start: 01-19-2025 Influenza vaccination [facility] Start: 01-12-2025 End: 04-13-2025 25-hydroxyvitamin D3 [Mass/volume] in Serum or Plasma VITAMIN D 25 HYDROXY Lab Routine Other fatigue Vitamin D deficiency Expected: 01/12/2025, Expires: 04/13/2025 [facility] Comment on above: Expected: 01/12/2025 , Expires: 04/13/2025 Start: 01-12-2025 End: 04-13-2025 C reactive protein [Mass/volume] in Serum or Plasma C-REACTIVE PROTEIN Lab Routine Other fatigue Muscle aches Weakness of both lower extremities Bilateral hip pain Expected: 01/12/2025, Expires: 04/13/2025 [facility] Comment on above: Expected: 01/12/2025 , Expires: 04/13/2025 Start: 01-12-2025 End: 04-13-2025 CBC W Auto Differential panel - Blood [facility] Comment on above: Expected: 01/12/2025 , Expires: 04/13/2025 Start: 01-12-2025 End: 04-13-2025 Cobalamin (Vitamin B12) [Mass/volume] in Serum or Plasma VITAMIN B12 Lab Routine Other fatigue Weakness of both lower extremities Expected: 01/12/2025, Expires: 04/13/2025 [facility] Comment on above: Expected: 01/12/2025 , Expires: 04/13/2025 Start: 01-12-2025 End: 04-13-2025 Comprehensive metabolic 2000 panel - Serum or Plasma [facility] Comment on above: Expected: 01/12/2025 , Expires: 04/13/2025 Start: 01-12-2025 End: 04-13-2025 Erythrocyte sedimentation rate [facility] Comment on above: Expected: 01/12/2025 , Expires: 04/13/2025 Start: 01-12-2025 End: 04-13-2025 Hemoglobin A1c in Blood [facility] Comment on above: Expected: 01/12/2025 , Expires: 04/13/2025 Start: 01-12-2025 End: 04-13-2025 Magnesium [Mass/volume] in Serum or Plasma [facility] Comment on above: Expected: 01/12/2025 , Expires: 04/13/2025 Start: 01-12-2025 End: 04-13-2025 Thyrotropin [Units/volume] in Serum or Plasma [facility] Comment on above: Expected: 01/12/2025 , Expires: 04/13/2025 Start: 01-12-2025 End: 04-13-2025 Thyroxine (T4) free [Mass/volume] in Serum or Plasma [facility] Comment on above: Expected: 01/12/2025 , Expires: 04/13/2025 Start: 01-12-2025 End: 04-13-2025 Triiodothyronine (T3) Free [Mass/volume] in Serum or Plasma [facility] Comment on above: Expected: 01/12/2025 , Expires: 04/13/2025 Start: 01-08-2025 End: 01-08-2025 Patient encounter procedure 01/08/2025 2:00 PM EDT Office Visit Internal Medicine [place] [address] [place] [address] Angélica Morataya APRN.[employer]R TRUCK DRIVER [address] [place] [address] [employer] [facility] [place] Comment on above: [employer] Start: 01-01-2025 Annual PCP Team [employer] yenni Disease Visit Annual PCP Team Chronic Disease Visit [facility] Start: 01-01-2025 Complete blood count Hemoglobin/Justin tocrit [facility] Start: 01-01-2025 Creatinine measurement Serum Creatin ine [facility] Start: 01-01-2025 Hepatitis B surface antibody level LDL Cholesterol [facility] Start: 11-17-2024 Influenza vaccination Influenza Vacc ine (#1) [facility] Comment on above: Postponed from 01/19 (Declined at this time) Start: 07-07-2024 End: 07-07-2024 Patient encounter procedure Cardiology Comment on above: Hyperlipidemia, unsp ecified hyperlipidemia type [E78.5] Start: 05-21-2024 Advance Directive Discussion Advance Directive Discussion [facility] Start: 03-25-2024 End: 06-24-2024 Urinalysis complete panel - Urine URINALYSIS WITH MICROSCOPIC, REFLEX CULTURE Lab Routine Recurrent UTI Expected: 03/25/2024, Expires: 06/24/2024 [facility] Work Phone: Comment on above: Expected: 03/25/2024 , Expires: 06/24/2024 Start: 03-24-2024 End: 03-24-2024 Patient encounter procedure [facility] [place] Comment on above: 03/05/24 [facility] F/U - K idney Stones, Sepsis 03/05/24 [facility] F/U - K id[place] Stones, Sepsis, (patient was to find new primary but has not yet, requesting to keep this appt) Start: 03-24-2024 End: 06-23-2024 25-hydroxyvitamin D3 [Mass/volume] in Serum or Plasma VITAMIN D 25 HYDROXY Lab Routine Vitamin D deficiency Expected: 03/24/2024, Expires: 06/23/2024 [facility] Comment on above: Expected: 03/24/2024 , Expires: 06/23/2024 Start: 03-24-2024 End: 06-23-2024 Ferritin [Mass/volume] in Serum or Plasma FERRITIN Lab Routine Iron deficiency Expected: 03/24/2024, Expires: 06/23/2024 [facility] Comment on above: Expected: 03/24/2024 , Expires: 06/23/2024 Start: 03-24-2024 End: 06-23-2024 Iron and Iron binding capacity panel - Serum or Plasma IRON AND TIBC Lab Routine Iron deficiency Expected: 03/24/2024, Expires: 06/23/2024 [facility] Work Phone: Comment on above: Expected: 03/24/2024 , Expires: 06/23/2024 Start: 02-04-2024 End: 02-04-2024 Patient encounter procedure 02/04/2024 10:20 AM EDT Office Visit [facility] [place] [address] [place] [address] Angélica Morataya APRN.[employer]R TR[employer] DRIVER [address] [place] [address] 4 weeks follow up [facility] Comment on above: 4 weeks follow up Start: 02-01-2024 End: 05-02-2024 Lipid 1996 panel - Serum or Plasma LIPID PANEL BASIC Lab Routine Hyperlipidemia, unspecified hyperlipidemia type Expected: 02/01/2024 (Approximate), Expires: 05/02/2024 [facility] Work Phone: Comment on above: Expected: 02/01/2024 (Approximate), Expires: 05/02/2024 Start: 02-01-2024 End: 05-02-2024 Thyrotropin [Units/volume] in Serum or Plasma THYROID STIMULATING HORMONE Lab Routine Hypothyroidism, unspecified type Expected: 02/01/2024 (Approximate), Expires: 05/02/2024 [facility] Comment on above: Expected: 02/01/2024 (Approximate), Expires: 05/02/2024 Start: 02-01-2024 End: 05-02-2024 Thyroxine (T4) free [Mass/volume] in Serum or Plasma T4 FREE/FREE THYROXINE Lab Routine Hypothyroidism, unspecified type Expected: 02/01/2024 (Approximate), Expires: 05/02/2024 [facility] Comment on above: Expected: 02/01/2024 (Approximate), Expires: 05/02/2024 Start: 02-01-2024 End: 05-02-2024 Triiodothyronine (T3) Free [Mass/volume] in Serum or Plasma T3, FREE Lab Routine Hypothyroidism, unspecified type Expected: 02/01/2024 (Approximate), Expires: 05/02/2024 [facility] Comment on above: Expected: 02/01/2024 (Approximate), Expires: 05/02/2024 Start: 01-20-2024 Covid-19 Vaccine () Covid-19 Vaccine () [facility] Start: 01-20-2024 Covid-19 Vaccine () Covid-19 Vaccine () [facility] Start: 01-20-2024 Influenza vaccination Influenza Vacc ine (#1) [facility] Start: 01-02-2024 End: 04-02-2024 25-hydroxyvitamin D3 [Mass/volume] in Serum or Plasma [facility] Comment on above: Expected: 01/02/2024 , Expires: 04/02/2024 Start: 01-02-2024 End: 04-02-2024 Cobalamin (Vitamin B12) [Mass/volume] in Serum or Plasma [facility] Comment on above: Expected: 01/02/2024 , Expires: 04/02/2024 Start: 01-02-2024 End: 04-02-2024 Comprehensive metabolic 2000 panel - Serum or Plasma [facility] Comment on above: Expected: 01/02/2024 , Expires: 04/02/2024 Start: 01-02-2024 End: 04-02-2024 Hemoglobin A1c in Blood [facility] Comment on above: Expected: 01/02/2024 , Expires: 04/02/2024 Start: 01-02-2024 End: 04-02-2024 LIPID PANEL, NONFASTING [facility] Comment on above: Expected: 01/02/2024 , Expires: 04/02/2024 Start: 01-02-2024 End: 04-02-2024 Thyrotropin [Units/volume] in Serum or Plasma [facility] Work Phone: Comment on above: Expected: 01/02/2024 , Expires: 04/02/2024 Start: 01-02-2024 End: 04-02-2024 Thyroxine (T4) free [Mass/volume] in Serum or Plasma [facility] Comment on above: Expected: 01/02/2024 , Expires: 04/02/2024 Start: 01-02-2024 End: 04-02-2024 Triiodothyronine (T3) Free [Mass/volume] in Serum or Plasma [facility] Comment on above: Expected: 01/02/2024 , Expires: 04/02/2024 Start: 10-04-2023 Complete blood count Hemoglobin/Justin tocrit [facility] Start: 10-04-2023 HEMOGLOBIN/HEMATOCRIT HEMOGLOBIN/HEM ATOCRIT [facility] Start: 07-14-2023 Creatinine measurement Serum Creatin ine [facility] Start: 07-14-2023 HEMOGLOBIN/HEMATOCRIT HEMOGLOBIN/HEM ATOCRIT [facility] Start: 07-14-2023 SERUM CREATININE SERUM CREATININE Cl [facility] Start: 07-03-2023 ANNUAL PCP TEAM HEAD COUNSELOR YENNI DISEASE VISIT ANNUAL PCP TEAM CHRONIC DISEASE VISIT [facility] Start: 07-03-2023 COVID-19 VACCINE (#1) COVID-19 VACCI NE (#1) [facility] Comment on above: Postponed from 09/13 (Declined at this time) Start: 07-03-2023 HEPATITIS C SCREENING HEPATITIS C [facility] Comment on above: Postponed from 03/15 (Declined at this time) Start: 07-03-2023 Hepatitis C screening Hepatitis C [facility] Comment on above: Postponed from 03/15 (Declined at this time) Start: 07-03-2023 Pneumococcal Vaccine : 65+ (1 - PCV) Pneumococcal Vaccine: 65+ (1 - PCV) [facility] Comment on above: Postponed from 03/15 (Declined at this time) Start: 07-03-2023 Pneumococcal Vaccine : 65+ (1 of 2 - PCV) Pneumococcal Vaccine: 65+ (1 of 2 - PCV) [facility] Comment on above: Postponed from 03/15 (Declined at this time) Start: 07-03-2023 PNEUMOCOCCAL: 65+ (1 - PCV) PNEUMOCOCCAL: 65+ (1 - PCV) [facility] Comment on above: Postponed from 03/15 (Declined at this time) Start: 07-03-2023 SHINGRIX VACCINE (1 of 2) ZAVALA GRIX VACCINE (1 of 2) [facility] Comment on above: Postponed from 03/15 (Declined at this time) Start: 07-03-2023 Urine microalbumin profile [facility] Comment on above: Postponed from 03/15 (Declined at this time) Start: 06-28-2023 Hepatitis B surface antibody level LDL CHOLESTEROL [facility] Start: 05-21-2023 Advance Directive Discussion Advance Directive Discussion [facility] Start: 05-21-2023 Depression Assessment Depression Ass essment [facility] Start: 03-31-2023 ANNUAL PCP TEAM HEAD COUNSELOR YENNI DISEASE VISIT ANNUAL PCP TEAM CHRONIC DISEASE VISIT [facility] Start: 03-31-2023 [facility]: 03-31-[facility]23 SERUM CREATININE SERUM CREATININE [facility] Start: 2023 RSV Vaccine (1 - 1-d ose 75+ series) RSV Vaccine (1 - 1-dose 75+ series) [facility] Start: 02-24-2023 ANNUAL PCP TEAM HEAD COUNSELOR YENNI DISEASE VISIT ANNUAL PCP TEAM CHRONIC DISEASE VISIT [facility] Start: 02-24-2023 HEMOGLOBIN/HEMATOCRIT HEMOGLOBIN/HEM [facility] Start: 02-24-2023 SERUM CREATININE SERUM CREATININE [facility] Start: 01-19-2023 Covid-19 Vaccine ( season) Covid-19 Vaccine ( season) [facility] Start: 01-19-2023 Influenza vaccination [facility] Start: 01-04-2023 End: 01-04-2023 [facility] Start: 01-04-2023 CT Abdomen and Pelvi s WO contrast [facility] Start: 01-04-2023 CT of abdomen and pe lvis without contrast Abdomen/Pelvis without Cont [facility] Start: 01-04-2023 Bacteria identified in Urine by Culture Urine Culture [facility] Start: 11-17-2022 Influenza vaccination INFLUENZA (#1) [facility] Comment on above: Postponed from 01/19 (Declined at this time) Start: 10-18-2022 BP CONTROLLED (<130/80) BP CONTROLLE D (<130/80) [facility] Start: 10-18-2022 HEMOGLOBIN/HEMATOCRIT HEMOGLOBIN/HEM [facility] Start: 10-18-2022 SERUM CREATININE SERUM CREATININE [facility] Start: 10-03-2022 End: 12-03-2022 Bacteria identified in Urine by Culture [facility] Work Phone: Comment on above: Expected: 10/03/2022 , Expires: 12/03/2022 Start: 10-03-2022 End: 12-03-2022 Urinalysis complete panel - Urine [facility] Work Phone: Comment on above: Expected: 10/03/2022 , Expires: 12/03/2022 Start: 08-17-2022 ANNUAL PCP TEAM HEAD COUNSELOR YENNI DISEASE VISIT ANNUAL PCP TEAM CHRONIC DISEASE VISIT [facility] Start: 08-04-2022 Hepatitis B surface antibody level LDL CHOLESTEROL [facility] Start: 08-04-2022 SERUM CREATININE SERUM CREATININE Cl [facility] Start: 07-03-2022 End: 09-02-2022 25-hydroxyvitamin D3 [Mass/volume] in Serum or Plasma VITAMIN D 25 HYDROXY Lab Routine Vitamin D deficiency Expected: 07/03/2022, Expires: 09/02/2022 [facility] Work Phone: Comment on above: Expected: 07/03/2022 , Expires: 09/02/2022 Start: 07-03-2022 End: 09-02-2022 CBC W Auto Differential panel - Blood CBC + DIFF Lab Routine Other fatigue Prediabetes Expected: 07/03/2022, Expires: 09/02/2022 [facility] Work Phone: Comment on above: Expected: 07/03/2022 , Expires: 09/02/2022 Start: 07-03-2022 End: 09-02-2022 Cobalamin (Vitamin B12) [Mass/volume] in Serum or Plasma VITAMIN B12 BLOOD Lab Routine Other fatigue Expected: 07/03/2022, Expires: 09/02/2022 [facility] Work Phone: Comment on above: Expected: 07/03/2022 , Expires: 09/02/2022 Start: 07-03-2022 End: 09-02-2022 Comprehensive metabolic 2000 panel - Serum or Plasma COMP METABOLIC PANEL Lab Routine Other fatigue Hypertension, unspecified type Prediabetes Expected: 07/03/2022, Expires: 09/02/2022 [facility] Work Phone: Comment on above: Expected: 07/03/2022 , Expires: 09/02/2022 Start: 07-03-2022 End: 09-02-2022 Hemoglobin A1c in Blood HGB A1C Lab Routine Other fatigue Prediabetes Expected: 07/03/2022, Expires: 09/02/2022 [facility] Work Phone: Comment on above: Expected: 07/03/2022 , Expires: 09/02/2022 Start: 07-03-2022 End: 09-02-2022 Thyrotropin [Units/volume] in Serum or Plasma TSH BLD Lab Routine Other fatigue Hypothyroidism, unspecified type Expected: 07/03/2022, Expires: 09/02/2022 [facility] Work Phone: Comment on above: Expected: 07/03/2022 , Expires: 09/02/2022 Start: 06-13-2022 End: 08-13-2022 Lipid 1996 panel - Serum or Plasma LIPID PANEL BASIC Lab Routine Hyperlipidemia Expected: 06/13/2022, Expires: 08/13/2022 [facility] Work Phone: Comment on above: Expected: 06/13/2022 , Expires: 08/13/2022 Start: 06-13-2022 End: 08-13-2022 SCHEDULE LAB TESTING SCHEDULE LAB TESTING Lab Routine Expected: 06/13/2022, Expires: 08/13/2022 [facility] Work Phone: Comment on above: Expected: 06/13/2022 , Expires: 08/13/2022 Start: 05-25-2022 HEMOGLOBIN/HEMATOCRIT HEMOGLOBIN/HEM ATOCRIT [facility] Start: 05-21-2022 ADVANCE DIRECTIVE DISCUSSION ADVANCE DIRECTIVE DISCUSSION [facility] Start: 05-21-2022 DEPRESSION ASSESSMENT DEPRESSION ASS ESSMENT [facility] Start: 03-31-2022 End: 05-31-2022 Basic metabolic 2000 panel - Serum or Plasma [facility] Work Phone: Comment on above: Expected: 03/31/2022 , Expires: 05/31/2022 Start: 03-31-2022 End: 05-31-2022 CBC W Auto Differential panel - Blood [facility] Work Phone: Comment on above: Expected: 03/31/2022 , Expires: 05/31/2022 Start: 03-14-2022 End: 05-14-2022 Hemoglobin A1c in Blood HGB A1C Lab Routine Medication management Expected: 03/14/2022, Expires: 05/14/2022 [facility] Work Phone: Comment on above: Expected: 03/14/2022 , Expires: 05/14/2022 Start: 03-14-2022 End: 05-14-2022 SCHEDULE LAB TESTING SCHEDULE LAB TESTING Lab Routine Expected: 03/14/2022, Expires: 05/14/2022 [facility] Work Phone: Comment on above: Expected: 03/14/2022 , Expires: 05/14/2022 Start: 01-19-2022 Influenza vaccination C [facility] Start: 08-26-2021 Anes lithotrp xtrcor p shock wave w/o water bath ANESTH KIDNEY STONE DESTRUCT [facility] Work Phone: Start: 08-26-2021 Cysto w/ureteroscopy w/lithotripsy CYSTOURETERO W/LITHOTRIPSY [facility] Work Phone: Start: 08-17-2021 End: 10-17-2021 Bacteria identified in Urine by Culture [facility] Work Phone: Comment on above: Expected: 08/17/2021 , Expires: 10/17/2021 Start: 08-17-2021 End: 10-17-2021 Urinalysis complete panel - Urine [facility] Work Phone: Comment on above: Expected: 08/17/2021 , Expires: 10/17/2021 Start: 08-12-2021 Bacteria identified in Blood by Culture Blood Culture [facility] Work Phone: Start: 08-12-2021 Bacteria identified in Urine by Culture Urine Culture [facility] Work Phone: Start: 05-21-2021 ADVANCE DIRECTIVE DISCUSSION ADVANCE DIRECTIVE DISCUSSION [facility] Start: 05-21-2021 DEPRESSION ASSESSMENT DEPRESSION ASS ESSMENT [facility] Start: 01-19-2021 Influenza vaccination INFLUENZA (#1) [facility] Start: 02-05-2020 Adult depression scr eening assessment DEPRESSION SCREENING [facility] Start: 2013 BONE DENSITY BONE DENSITY [facility] Start: 2013 Bone Density Screening Bone Density Screening [facility] Start: 2013 Screening for osteoporosis Bone Dens ity Screening [facility] Start: 02-18-2013 Medicare Annual Well ness Visit Medicare Annual Wellness Visit [facility] Start: 2008 Hepatitis B Vaccine (1 of 3 - Risk 3-dose series) Hepatitis B Vaccine (1 of 3 - Risk 3-dose series) [facility] Start: 2008 RSV Vaccine (1 - 1-d ose 60+ series) RSV Vaccine (1 - 1-dose 60+ series) [facility] Start: 2003 Influenza vaccination LUNG CANCER [facility] Start: 1998 Influenza vaccination LUNG CANCER [facility] Start: 1998 Screening for malign ant neoplasm of lung Lung Cancer Screening [facility] Start: 1998 SHINGRIX VACCINE (1 of 2) ZAVALA GRIX VACCINE (1 of 2) [facility] Start: 1993 COLOGUARD (FIT-DNA) COLOGUARD (FIT-D NA) [facility] Start: 1993 Colonoscopy COLONOSCOPY [facility] Start: 1993 COLORECTAL CANCER SCREENING COLORECTAL CANCER SCREENING [facility] Start: [address] COLONOGRAPHY [facility] Start: 1993 FECAL OCCULT BLOOD FECAL OCCULT BLOO D [facility] Start: 1993 Screening for malign ant neoplasm of colon [facility] Start: 1993 SIGMOIDOSCOPY SIGMOIDOSCOPY [facility] Start: 1988 Mammography [facility] Start: 1967 Urine microalbumin profile [facility] Start: 1966 Anxiety Screening Anxiety Screening [facility] Start: 1966 BP CONTROLLED (<130/80) BP CONTROLLE D (<130/80) [facility] Start: 1966 Depression Screening Depression Scre ening [facility] Start: 1966 HEPATITIS C SCREENING HEPATITIS C [facility] Start: 1966 Hepatitis C screening Hepatitis C [facility] Start: 1954 Pneumococcal Vaccine : 65+ (1 of 2 - PCV) Pneumococcal Vaccine: 65+ (1 of 2 - PCV) [facility] Start: 1954 PNEUMOCOCCAL: 65+ (1 - PCV) PNEUMOCOCCAL: 65+ (1 - PCV) [facility] Start: 1953 COVID-19 VACCINE (#1) COVID-19 VACCI NE (#1) [facility] Start: 1953 COVID-19 VACCINE (1) COVID-19 VACCIN E (1) [facility] Start: 1948 COVID-19 VACCINE (#1) COVID-19 VACCI NE (#1) [facility] Bacteria identified in Urine by Culture URINE CULTURE Microbiology Routine Gross hematuria Ordered: 10/18/2021 [facility] Work Phone: Comment on above: Ordered: 10/18/2021 Bacteria identified in Urine by Culture URINE CULTURE Microbiology Routine Right flank pain Lower abdominal pain 01/02/2024 1:02 PM EDT [facility] Bacteria identified in Urine by Culture BACTERIAL CULTURE, URINE Microbiology Routine Urine leukocytes 01/12/2025 3:32 PM EDT [facility] ECG COMPLETE ECG COMPLETE ECG Routine Other fatigue History of non-ST elevation myocardial infarction (NSTEMI) Chest pain, unspecified type 01/12/2025 2:19 PM EDT [facility] End: 01-12-2026 Echocardiography ECHO Cardiology Routine Other fatigue History of non-ST elevation myocardial infarction (NSTEMI) Chest pain, unspecified type Uncontrolled hypertension DC (obstructive sleep apnea) 1 Occurrences starting 01/12/2025 until 01/12/2026 [facility] Comment on above: 1 Occurrences starti ng 01/12/2025 until 01/12/2026 End: 08-11-2023 KALIA SCREENING KALIA SCREENING Radiology Routine Encounter for screening mammogram for breast cancer 1 Occurrences starting 07/12/2022 until 08/11/2023 [facility] Work Phone: Comment on above: 1 Occurrences starti ng 07/12/2022 until 08/11/2023 Patient Education [facility] Work Phone: Patient referral [facility] Work Phone: End: 11-01-2023 Radiologic exam chest 2 views XR CHEST 2V FRONTAL/LAT Radiology STAT Acute cough 1 Occurrences starting 10/02/2022 until 11/01/2023 [facility] Work Phone: Comment on above: 1 Occurrences starti ng 10/02/2022 until 11/01/2023 Urinalysis complete panel - Urine URINALYSIS, WITH MICROSCOPIC Lab Routine Right flank pain Lower abdominal pain 01/02/2024 1:02 PM EDT [facility] Urinalysis complete panel - Urine URINALYSIS, WITH MICROSCOPIC Lab Routine Urine leukocytes 01/12/2025 3:32 PM EDT [facility] End: 02-11-2026 XR Chest PA and Lateral XR CHEST 2V FRONTAL/LAT Radiology Routine Other fatigue Chest pain, unspecified type Subacute cough 1 Occurrences starting 01/12/2025 until 02/11/2026 [facility] Comment on above: 1 Occurrences starti ng 01/12/2025 until 02/11/2026 XR Chest PA and Lateral XR CHEST 2V FRONTAL/LAT Radiology Routine Other fatigue Chest pain, unspecified type Subacute cough 01/14/2025 1:31 PM EDT [facility] End: 02-11-2026 XR HIP BILATERAL 5V PEL/AP/LAT EACH HIP XR HIP BILATERAL 5V PEL/AP/LAT EACH HIP Radiology Routine Weakness of both lower extremities Bilateral hip pain 1 Occurrences starting 01/12/2025 until 02/11/2026 [facility] Comment on above: 1 Occurrences starti ng 01/12/2025 until 02/11/2026 XR HIP BILATERAL 5V PEL/AP/LAT EACH HIP XR HIP BILATERAL 5V PEL/AP/LAT EACH HIP Radiology Routine Weakness of both lower extremities Bilateral hip pain 01/14/2025 1:31 PM T [facility] End: 02-11-2026 XR Lumbar spine 3 Views XR LUMBAR GENERAL 3V AP/LAT/L5-S1 Radiology Routine Weakness of both lower extremities Chronic midline low back pain, unspecified whether sciatica present Bilateral hip pain 1 Occurrences starting 01/12/2025 until 02/11/2026 [facility] Work Phone: Comment on above: 1 Occurrences starti ng 01/12/2025 until 02/11/2026 XR Lumbar spine 3 Views XR LUMBA R GENERAL 3V AP/LAT/L5-S1 Radiology Routine Weakness of both lower extremities Chronic midline low back pain, unspecified whether sciatica present Bilateral hip pain 01/14/2025 1:31 PM EDT [facility] [facility] Work Phone: [facility] Payers Date Payer Category Payer Self-pay [id number] 2015 Private Health Insurance HUMANA HUMANA MEDICARE SUPPLEMENT [id number] 2015-Present [phone] [address] [address] [place] [address] Indemnity [id number] 2015 Private Health Insurance [id number] 2015 Private Health Insurance [id number] 2013 Medicare MEDICARE MEDICAR E A AND B [id number] 2013-Present [phone] [address] [address] [place] [address] Medicare [id number] 2013 Medicare [id number] 2013 Medicare [id number] Medicare [id number] Unknown [id number] Unknown [id number] Unknown [id number] Unknown [id number] Unknown [id number] Unknown [id number] Unknown [id number] Social History Date Type Detail Facility [facility] Work Phone: Start: 08-12-2021 End: 01-04-2023 Tobacco smoking status OHIS Unknown if ever smoked [facility] Start: 1950 Sex Assigned At Female [facility] Start: 05-25-2021 End: 03-24-2024 Tobacco smoking status NHIS Smokes tobacco daily [facility] History of tobacco use Cigarette Smoker C [facility] Start: 05-25-2021 End: 06-11-2023 Cigarettes smoked current (pack per day) - Reported 1 [facility] Start: 05-25-2021 End: 03-24-2024 Tobacco use and exposure Smokeless tobacco non-user [facility] Start: 08-17-2021 End: 01-12-2025 Alcohol intake Current non-drinker of alcohol (finding) [facility] Start: 1950 Sex Assigned At Not on file C [facility] Start: 08-14-2020 End: 02-23-2022 Exposure to SARS-CoV-2 (event) Not sure [facility] Work Phone: Start: 10-02-2022 End: 06-11-2023 Tobacco use panel [facility] Start: 04-21-2012 National Score (1-10 0), lower number is lower risk 34 [facility] Start: 05-30-2016 Tobacco smoking stat us NHIS Occasional tobacco smoker [facility] Start: 03-23-2014 Tobacco Comment currently using e-ci [facility] (I/We) worried wheth er (my/our) food would run out before (I/we) got money to buy more. Never true [facility] Work Phone: Medical Equipment Procedure Code Equipment [...] Facility 08-12-2021 Functional status Ambulates;Up ad shade [facility] Work Phone: 04-27-2016 Are you deaf, or do you have serious difficulty hearing No 04/27/2016 4:00 PM Magdalena Abraham, RANDELL No [facility] 04-27-2016 Are you blind, or do you have serious difficulty seeing, even when wearing glasses No 04/27/2016 4:00 PM Magdalena Abraham, RANDELL No [facility] 04-27-2016 Do you have serious difficulty walking or climbing stairs No 04/27/2016 4:00 PM Magdalena Abraham, RANDELL No [facility] 04-27-2016 Do you have difficul ty dressing or bathing No 04/27/2016 4:00 PM Magdalena Abraham, RANDELL No [facility] 04-27-2016 Because of a physica l, mental, or emotional condition, do you have difficulty doing errands alone such as visiting a physician's office or shopping No 04/27/2016 4:00 PM Magdalena Abraham RN No [facility] Mental Status Date Assessment Result Facility 01-04-2023 Cognitive function Level Of Cons ciousness Awake;Alert;Appropriate;Fol lows Commands [facility] Work Phone: 08-26-2021 Cognitive function Touch/Shaking [facility] Work Phone: 08-12-2021 Cognitive function Voice/Name [facility] Work Phone: 08-12-2021 Cognitive function Appropriate;Cooperativ e [facility] Work Phone: 04-27-2016 Because of a physica l, mental, or emotional condition, do you have serious difficulty concentrating, remembering, or making decisions No 04/27/2016 4:00 PM Magdalena Abraham, RANDELL No [facility] Clinical Notes 02-04-2019 to 02-09-2025 Telephone Encounter - Regla VillatoroMERI - 01/22/2025 9:57 AM EDTTelephone Encounter - IrvingRegla lyonsMERI - 01/22/2025 9:57 AM EDTTelephone Encounter - Angélica Morataya APRN.CNP - 01/21/2025 6:39 PM EDT Note Date & Type Note Facility 02-09-2025 Note HNO ID: [id number] Author: ANGÉLICA MORATAYA APRN.MT Service: ? Author Type: Nurse Practitioner Type: Progress Notes Filed: 02/09/2025 16:19 Note Text: CC: Patient presents with: Recheck: 4 week follow up HPI Gayle Cho is a 74 year old female who presents today for follow up on multiple complaints on diagnostic results. Recording using DAQRI software for draft documentation of the visit was discussed with the patient/authorized access representative; all questions welcomed and answered. Patient/authorized access representative agreed to proceed Lab Results Review: [...] and needs to schedule with them at [facility]. Has not scheduled with nephrology as ordered. [...] (NSTEMI), subendocardial infarction, initial episode of care ([facility]) 02/20/2012 Type II or unspecified [...] Take 1 tablet by mouth twice weekly [id number], then decrease to 1 tablet weekly. CPAP [...] gallop, or rub (more content not included)... [facility] 01-22-2025 Telephone encounter Note Patient notified. [facility] 01-22-2025 Miscellaneous Notes Patient notified. Inflammatory marker is elevated. I would like to do further blood work to identify if there are any indications for autoimmune disorders. CXR without infection and other blood work in acceptable ranges. Thank you Angélica Morataya APRN.CNP documented in this encounter [facility] 01-21-2025 Telephone encounter Note Inflammatory marker is elevated. I would like to do further blood work to identify if there are any indications for autoimmune disorders. CXR without infection and other blood work in acceptable ranges. Thank you Angélica Morataya APRN.CNP [facility] 01-14-2025 History of Present illness Narrative Radiology [...] PATIENT PRESENTS WITH AN IMPLANTABLE OR ATTACHED RN FIRST ASSIST: No RADIOLOGY DEPARTMENT: General X-ray: Exam(s) Completed: Chest X-Ray Spine X-Ray(s): Lumbar AP / LAT / L5-S1 Pelvis X-Ray: Pelvis with Hip Bilateral PERIPHERAL IV DATA: Not applicable SIGNED BY: Ulices Chiu January 14, 2025 1:31 PM documented in this encounter [facility] 01-14-2025 Note HNO ID: [id number] Author: FRANKIE PHILLIPS Tech Service: ? Author Type: Cloth Covered Helmet Puller Type: Progress Notes Filed: 01/14/2025 13:32 Note [...] PATIENT PRESENTS WITH AN IMPLANTABLE OR ATTACHED RN FIRST ASSIST: No RADIOLOGY DEPARTMENT: General X-ray: Exam(s) Completed: Chest X-Ray Spine X-Ray(s): Lumbar AP / LAT / L5-S1 Pelvis X-Ray: Pelvis with Hip Bilateral PERIPHERAL IV DATA: Not applicable SIGNED BY: Ulices Chiu January 14, 2025 1:31 PM [facility] 01-12-2025 Instructions Angélica Morataya APRN.CNP - 01/12/2025 [...] and back pain. documented in this encounter [facility] 01-12-2025 Note HNO ID: [id number] Author: ANGÉLICA MORATAYA APRN.CNP Service: ? Author [...] been seen in 10 months. Recording using DAQRI software for draft documentation of the visit was discussed with the patient/authorized access representative; all questions welcomed and answered. Patient/authorized access representative agreed to proceed Fatigue: - Persistent [...] Xanax before the visit, prescribed by a remote computer terminal operator previously. - has requested xanax in past [...] infection in 2020. - Underwent physical therapy [id number]. - Occasional sensation of legs giving out. [...] 4 years ago. - Has family in [place]. REVIEW OF SYSTEMS See HPI PAST MEDICAL [...] Take 1 tablet by mouth twice weekly [id number], then decrease to 1 tablet weekly. CPAP aspirin, enteric coated (ASPIRIN, ENTERIC COATED) 81 mg EC tablet Take 1 tablet by mouth once daily. History reviewed. No pertinent family history. (more content not included)... [facility] 01-12-2025 History of Present illness Narrative CC: Patient presents with: Medicare Wellness Exam: Annual Medicare Wellness HPI Gayle Cho is a 74 year old female who presents today for medicare wellness but with multiple complaints so visit focused on as many concerns as possible. Has not been seen in 10 months. Recording using DAQRI software for draft documentation of the visit was discussed with the patient/authorized access representative; all questions welcomed and answered. Patient/authorized access representative agreed to proceed Fatigue: - Persistent [...] Xanax before the visit, prescribed by a remote computer terminal operator previously. - has requested xanax in past [...] infection in 2020. - Underwent physical therapy [id number]. - Occasional sensation of legs giving out. [...] 4 years ago. - Has family in [place]. REVIEW OF SYSTEMS See HPI PAST MEDICAL [...] Take 1 tablet by mouth twice weekly [id number], then decrease to 1 tablet weekly. CPAP [...] Patient agreeable to treatment plan. Angélica Morataya APRN.OTR TRUCK DRIVER [1] Social History Tobacco Use Smoking status: Every Day Current packs/day: 1.00 Average packs/day: 1 pack/day for 45.0 years (45.0 ttl pk-yrs) Types: Cigarettes Smokeless tobacco: Never Substance Use Topics Alcohol use: No Drug use: No documented in this encounter [facility] 01-06-2025 Telephone encounter Note Due for follow up. Thank you Angélica Morataya APRN.CNP [facility] 01-06-2025 Miscellaneous Notes Due for follow up. [...] 2025 9:01 AM documented in this encounter [facility] 01-05-2025 Telephone encounter Note Prescription Refill Information [...] Corazon Barcenas January 05, 2025 9:01 AM [facility] 12-23-2024 Note Patient Outreach (IN TMMN) ---- GAYLE CHO ([id number]) 1950 F Date Time Provider Department 12/23/24 [...] [Z79.899] Order(s):ALBUMIN/CREATININE RATIO, URINE [SQUACR] Order #: [id number] FUTURE HEMOGLOBIN A1C [NFWVO4T] Order #: [id number] FUTURE COMPLETE BLOOD COUNT [SQCBC] Order #: [id number] FUTURE RENAL FUNCTION PANEL [SQRFP] Order #: [id number] FUTURE Prescriptions as of 12/26/2024 - amLODIPine [...] Take 1 tablet by mouth twice weekly p4slyls, then decrease to 1 tablet weekly. - [...] Encounter Status:Closed by OSMAR REA on 12/26/24 [facility] 12-05-2024 Telephone encounter Note Patient found her previous medication bottle. Please disregard refill request. [facility] 12-05-2024 Miscellaneous Notes Patient found her previous [...] can a new RX be sent to [facility] [place] The last office visit in the department: 03/24/2024 Does the patient have a future office visit with this provider/department: Yes Requested Prescriptions Pending Prescriptions Disp Refills levothyroxine (LEVOXYL) 100 mcg tablet 90 tablet 3 Sig: Take 1 tablet by mouth once daily. Take on empty stomach. For Thyroid. Suzanne Sumner December 04, 2024 12:24 PM documented in this encounter [facility] 12-04-2024 Telephone encounter Note Prescription Refill Information [...] can a new RX be sent to [facility] [place] The last office visit in the department: 03/24/2024 Does the patient have a future office visit with this provider/department: Yes Requested Prescriptions Pending Prescriptions Disp Refills levothyroxine (LEVOXYL) 100 mcg tablet 90 tablet 3 Sig: Take 1 tablet by mouth once daily. Take on empty stomach. For Thyroid. Suzanne Sumner December 04, 2024 12:24 PM [facility] 10-06-2024 Note HNO ID: [id number] Author: ROLA GASTELUM MA Service: ? Author Type: Senior Information Developer Type: Progress Notes Filed: 10/06/2024 09:45 Note [...] Wellness Visit Controlling Blood Pressure 01/08/2025 in [facility] with OLDER, ANGÉLICA - MEDICARE WELLNESS HCC related Navigation Signature: Rola Gastelum MA October 06, 2024 8:05 AM [facility] 10-06-2024 History of Present illness Narrative POPULATION [...] Wellness Visit Controlling Blood Pressure 01/08/2025 in [facility] with OLDER, ANGÉLICA - MEDICARE WELLNESS HCC related Navigation Signature: Rola Gastelum MA October 06, 2024 8:05 AM documented in this encounter [facility] 10-06-2024 Note Patient Outreach (NE TNAV) ---- GAYLE CHO ([id number]) 1950 F Date Time Provider Department 10/06/24 [...] Wellness Visit Controlling Blood Pressure 01/08/2025 in [facility] with OLDER, ANGÉLICA - MEDICARE WELLNESS [...] Take 1 tablet by mouth twice weekly [id number], then decrease to 1 tablet weekly. - [...] Encounter Status:Closed by ROLA GASTELUM on 10/06/24 [facility] 10-02-2024 Telephone encounter Note Prescription Refill Information [...] Sabine Reynoso October 02, 2024 2:51 PM [facility] 10-02-2024 Miscellaneous Notes Prescription Refill Information The [...] 2024 2:51 PM documented in this encounter [facility] 09-03-2024 Note HNO ID: [id number] Author: ROLA GASTELUM MA Service: ? Author Type: Senior Information Developer Type: Progress Notes Filed: 09/03/2024 12:07 Note [...] Gastelum MA September 03, 2024 7:45 AM [facility] 09-03-2024 History of Present illness Narrative POPULATION [...] 2024 7:45 AM documented in this encounter [facility] 09-03-2024 Note Patient Outreach (NE TNAV) ---- GAYLE CHO ([id number]) 1950 F Date Time Provider Department 09/03/24 [...] Take 1 tablet by mouth twice weekly [id number], then decrease to 1 tablet weekly. - [...] Encounter Status:Closed by ROLA GASTELUM on 09/03/24 [facility] 08-04-2024 Note HNO ID: [id number] Author: ROLA GASTELUM MA Service: ? Author Type: Senior Information Developer Type: Progress Notes Filed: 08/04/2024 15:49 Note [...] Gastelum MA August 04, 2024 9:25 AM [facility] 08-04-2024 History of Present illness Narrative POPULATION [...] 2024 9:25 AM documented in this encounter [facility] 08-04-2024 Note Patient Outreach (NE JERADAV) ---- GAYLE CHO ([id number]) 1950 F Date Time Provider Department 08/04/24 [...] Visit: Population Health Navigation Outreach [3910] [facility] Prescriptions as of 08/04/2024 [...] Take 1 tablet by mouth twice weekly [id number], then decrease to 1 tablet weekly. - [...] Encounter Status:Closed by ROLA GASTELUM on 08/04/24 [facility] 07-03-2024 Note HNO ID: [id number] Author: ROLA GASTELUM MA Service: ? Author Type: Senior Information Developer Type: Progress Notes Filed: 07/03/2024 09:56 Note [...] Gastelum MA July 03, 2024 9:45 AM [facility] 07-03-2024 History of Present illness Narrative POPULATION [...] 2024 9:45 AM documented in this encounter [facility] 07-03-2024 Note Patient Outreach (NE TNAV) ---- GAYLE CHO ([id number]) 1950 F Date Time Provider Department 07/03/24 [...] Take 1 tablet by mouth twice weekly [id number], then decrease to 1 tablet weekly. - [...] Encounter Status:Closed by ROLA GASTELUM on 07/03/24 [facility] 06-25-2024 Telephone encounter Note The patient has [...] Encarnacion RN June 25, 2024 3:55 PM [facility] 06-25-2024 Miscellaneous Notes The patient has been [...] 2024 3:55 PM documented in this encounter [facility] 04-14-2024 Telephone encounter Note I would request that this information be relayed to her surgeon. Regards, Jessica Clark MD [facility] 04-14-2024 Miscellaneous Notes I would request that [...] surgeon on 05-01-24. documented in this encounter [facility] 04-14-2024 Telephone encounter Note Andree KELLY PT- [...] has f/u appt with surgeon on 05-01-24. [facility] 04-08-2024 Note HNO ID: [id number] Author: OSKAR ERICKSON MA Service: ? Author Type: Senior Information Developer Type: Progress Notes Filed: 04/08/2024 09:48 Note [...] Erickson MA April 08, 2024 9:41 AM [facility] 04-08-2024 History of Present illness Narrative POPULATION [...] 2024 9:36 AM documented in this encounter [facility] 04-08-2024 Note HNO ID: [id number] Author: OSKAR ERICKSON MA Service: ? Author Type: Senior Information Developer Type: Progress Notes Filed: 04/08/2024 09:39 Note Text: POPULATION HEALTH NAVIGATION OUTREACH Action/FYI Left message for patient to call back. No PCP? Valentín Reason for Outreach Care Gap/HCC or Scheduling Wellness Visits Care Gaps due: Follow-up Appointment Controlling Blood Pressure Patient Contacted: Unable or unnecessary to reach patient: Left message Navigation Signature: Oskar Erickson MA April 08, 2024 9:36 AM [facility] 04-08-2024 Note Patient Outreach (NE TNAV) ---- GAYLE CHO ([id number]) 1950 F Date Time Provider Department 04/08/24 [...] Take 1 tablet by mouth twice weekly [id number], then decrease to 1 tablet weekly. - [...] Encounter Status:Closed by OSKAR ERICKSON on 04/08/24 [facility] 04-03-2024 Telephone encounter Note Called patient and updated, No urinary symptom at this time. Nicholas Zuleta LPN April 03, 2024 10:33 AM [facility] 04-03-2024 Miscellaneous Notes Called patient and updated, [...] take an additional 2,000 international unit(s) daily? oRberta Lujan MA Please let patient know that her lipids are a little elevated but not very concerning. Vit d levels are mildly low Please take OT vit d3 2000 IU daily with food. Ferritin and iron levels are normal. Her urine test results did not show infection on culture, does she have any symptoms? Dysuria ? Jessica Navarro MD documented in this encounter [facility] 04-02-2024 Telephone encounter Note No , if she is taking 50,000 then she does not need to take 2000 international unit(s) Jessica Navarro MD [facility] 04-02-2024 Telephone encounter Note Patient notified and verbalized understanding. Patient does note that she takes 50,000 international unit(s) of Vitamin D2 once a week. Do you still want her to take an additional 2,000 international unit(s) daily? Roberta Lujan MA [facility] 04-02-2024 Telephone encounter Note Please let patient know that her lipids are a little elevated but not very concerning. Vit d levels are mildly low Please take OT vit d3 2000 IU daily with food. Ferritin and iron levels are normal. Her urine test results did not show infection on culture, does she have any symptoms? Dysuria ? Jessica Navarro MD [facility] 03-26-2024 Telephone encounter Note Jose @ [employer] notified. [facility] 03-26-2024 Miscellaneous Notes Jose @ [employer] notified. [...] Nati Paulson LPN documented in this encounter [facility] 03-26-2024 Telephone encounter Note Patient notified. [facility] 03-26-2024 Miscellaneous Notes Patient notified. Ordered as [...] test was added. documented in this encounter [facility] 03-25-2024 Telephone encounter Note Willing to sign the HH Orders Jessica Navarro MD [facility] 03-25-2024 Telephone encounter Note Ordered as requested. Jessica Navarro MD [facility] 03-25-2024 Telephone encounter Note Pt had appt 03/[address] Clark. In light of appt yesterday, Jose with [facility] calls to ask if Dr. Clark would be willing now to sign HH orders for pt or if Angélica Morataya would be willing. Call Jose at number given. Nati Paulson LPN [facility] 03-25-2024 Note HNO ID: [id number] Author: DELMAR GALLEGOS RN Service: ? Author Type: Registered Nurse Type: Progress Notes Filed: 03/25/2024 12:33 Note Text: Transitional Care Management (TCM) Follow-Up Note PCP Update / Actionable Items Future Appts 07/07/24 Card ADMIN [facility] N/A - No specialty updates needed Patient Source: Cxa-ia-Rdpjyve (OON) Discharge Outreach Summary: Patient states is [...] , no issues, stable Patient discharged from [facility]- Discharge date: 03/14/24 Admitted for: PYELONEPRHRITIS [...] Gallegos RN March 25, 2024 12:30 PM [facility] 03-25-2024 History of Present illness Narrative Transitional Care Management (TCM) Follow-Up Note PCP Update / Actionable Items Future Appts 07/07/24 Card ADMIN [facility] N/A - No specialty updates needed Patient Source: [id number]-wf-Sglrdtc (OON) Discharge Outreach Summary: Patient states is [...] , no issues, stable Patient discharged from [facility]- Discharge date: 03/14/24 Admitted for: PYELONEPRHRITIS [...] 2024 12:30 PM documented in this encounter [facility] 03-25-2024 Telephone encounter Note Patient asking pcp [...] let her know urine test was added. [facility] 03-25-2024 Note Patient Outreach ([facility] ---- GAYLE CHO ([id number]) 1950 F Date Time Provider Department 03/25/24 DELMAR GALLEGOS AMBG During your visit today, we recorded the following information about you: Delmar Gallegos RN 03/25/2024 12:33 PM Signed Transitional Care Management (TCM) Follow-Up Note PCP Update / Actionable Items Future Appts 07/07/24 Card ADMIN [facility] N/A - No specialty updates needed Patient Source: Jhc-uq-Luobrhn (OON) Discharge Outreach Summary: Patient states is [...] , no issues, stable Patient discharged from [facility]- Discharge date: 03/14/24 Admitted for: PYELONEPRHRITIS [...] for Visit: Transition Of Care [4074] Cmt: [facility] Follow-up Day 11 Prescriptions as of 03/25/2024 [...] Take 1 tablet by mouth twice weekly [id number], then decrease to 1 tablet weekly. - [...] counseling [Z71.6] 02/05/20 (more content not included)... [facility] 03-24-2024 Note HNO ID: [id number] Author: JESSICA CLARK MD Service: ? Author [...] her . Has a support group at [employer] and family that is helping. She does [...] adequate hydration 5. (more content not included)... [facility] 03-24-2024 History of Present illness Narrative Reason [...] her . Has a support group at [employer] and family that is helping. She does [...] (NSTEMI), subendocardial infarction, initial episode of care ([facility]) 02/20/2012 Type II or unspecified [...] Jessica Clark MD documented in this encounter [facility] 03-19-2024 Telephone encounter Note Oneyda Adair Olea notified of provider message. Left VM message for patient to return call to [phone] and ask for triage nurse. Chelly Alamo RN [facility] 03-19-2024 Miscellaneous Notes Oneyda @ [facility] notified of provider message. Left VM message for patient to return call to [phone] and ask for triage nurse. Chelly Alamo, [...] care on Sunday. Please advise. Will from [facility] calling patient discharging today from [facility], sepsis, UTI, weakness acute kidney injury. Plan start of care on 03/16, asking if PCP would follow patient and sign orders? Please advise documented in this encounter [facility] 03-18-2024 Telephone encounter Note [facility], calling to report they will be starting nursing and PT with pt. Jose Mcgarry LPN [facility] 03-18-2024 Miscellaneous Notes Lefty Call, calling to report they will be starting nursing and PT with pt. Jose Mcgarry LPN documented in this encounter [facility] 03-18-2024 Telephone encounter Note Pt on schedule for 03/24/24 for ER follow up. Pt has not been seen in 2.[address] De La Paz note below. Phone call to patient to inform, no answer. Will need to try again. Roberta Lujan MA [facility] 03-18-2024 Note HNO ID: [id number] Author: DELMAR GALLEGOS RN Service: ? Author Type: Registered Nurse Type: Progress Notes Filed: 03/18/2024 11:14 Note Text: Transition Care Management (TCM) Initial Outreach PCP Update / Actionable Items Eligible for tcm through 03/28/24 Future Appts 03/19 Micki [facility] 07/07/24 [facility] Referral Source of Stratification: [facility] Hospital Admission Status: Discharged Readmission Risk Score: n/a Patient's zip code: [address] Is zip code within program service area: No Patient meets program referral criteria: No Patient does not qualify for High Risk TCM Home Visit program due to: Patient's zip code is not located within program service area Disposition: Patient does not qualify for HRTIC, will provide TCM outreach follow-up for 30-days Patient Source: Uww-ap-Fazvgkl (OON) Discharge Outreach Summary: Patient states is [...] , no issues, stable Patient discharged from [facility] Discharge date: 03/14/24 Admitted for: PYELONEPRHRITIS AND SEPSIS, UTI, EDITH, Fatigue, generalized weakness, Readmission Risk: n/a Value-Based Contract: ACO Contact: Contact made with patient: Yes Hi, my name is Delmar Gallegos RN and I am calling from the [facility] on behalf of your Primary Care Provider, [...] to speak with a social work team cdl driver to help give you support for [...] I will send your request to a senior net application developer who will contact and assist you with [...] Gallegos RN March 18, 2024 11:08 AM [facility] 03-18-2024 History of Present illness Narrative Transition Care Management (TCM) Initial Outreach PCP Update / Actionable Items Eligible for tcm through 03/28/24 Future Appts 03/19 Micki [facility] 07/07/24 Card ADMIN [facility] TCM Home Visit Referral Source of Stratification: [facility] Hospital Admission Status: Discharged Readmission Risk Score: n/a Patient's zip code: [address] Is zip code within program service area: No Patient meets program referral criteria: No Patient does not qualify for High Risk TCM Home Visit program due to: Patient's zip code is not located within program service area Disposition: Patient does not qualify for HRTIC, will provide TCM outreach follow-up for 30-days Patient Source: Hzg-pt-Foqjkyn (OON) Discharge Outreach Summary: Patient states is [...] , no issues, stable Patient discharged from [facility] Discharge date: 03/14/24 Admitted for: PYELONEPRHRITIS & SEPSIS, UTI, EDITH, Fatigue, generalized weakness, Readmission Risk: n/a Value-Based Contract: ACO Contact: Contact made with patient: Yes Hi, my name is Delmar Gallegos RN and I am calling from the [facility] on behalf of your Primary Care Provider, [...] to speak with a social work team cdl driver to help give you support for [...] I will send your request to a senior net application developer who will contact and assist you with [...] 2024 11:08 AM documented in this encounter [facility] 03-18-2024 Telephone encounter Note Left vm for Will to return call to nurse for provider's message. [facility] 03-18-2024 Note Patient Outreach (AM [facility]) ---- GAYLE CHO ([id number]) 1950 F Date Time Provider Department 03/18/24 DELMAR GALLEGOS AMBG During your visit today, we recorded the following information about you: Delmar Gallegos RN 03/18/2024 11:14 AM Signed Transition Care Management (TCM) Initial Outreach PCP Update / Actionable Items Eligible for tcm through 03/28/24 Future Appts 03/19 Micki [facility] 07/07/24 Card ADMIN [facility] TCM Home Visit Referral Source of Stratification: T[facility] Hospital Admission Status: Discharged Readmission Risk Score: n/a Patient's zip code: [address] Is zip code within program service area: No Patient meets program referral criteria: No Patient does not qualify for High Risk TCM Home Visit program due to: Patient's zip code is not located within program service area Disposition: Patient does not qualify for HRTIC, will provide TCM outreach follow-up for 30-days Patient Source: Ukm-re-Txclujt (OON) Discharge Outreach Summary: Patient states is [...] , no issues, stable Patient discharged from [facility] Discharge date: 03/14/24 Admitted for: PYELONEPRHRITIS AND SEPSIS, UTI, EDITH, Fatigue, generalized weakness, Readmission Risk: n/a Value-Based Contract: ACO Contact: Contact made with patient: Yes Hi, my name is Delmar Gallegos RN and I am calling from the [facility] on behalf of your Primary Care Provider, [...] to speak with a social work team cdl driver to help give you support for [...] I will send your request to a senior net application developer who will contact and assist you with [...] Heart racing/palpitations ENALAPRIL (more content not included)... [facility] 03-17-2024 Telephone encounter Note I will not be able to sign the HH order, Patient was supposed to find a new primary care, please reference my note in July,. Where she accused me of things and we decided to end the doctor patient relationship. She has not seem me in 2.5 years. Apologies for the inconvenience Regards, Jessica Clark MD [facility] Work Phone: 03-14-2024 Telephone encounter Note Will calling again. Would like verbal orders today since they are starting care on Sunday. Please advise. [facility] 03-14-2024 Note [facility] Medical Records Department [address] [place] [address] Discharge Summary 03/14/24 1042 MR#: [id number] Acct: [id number] Name: GAYLE CHO Rep #: [id number] : 1950 73 From: Brandan Logan DO PCP: Dr. Jessica Clark MD Status:ADM IN Location: [facility] [id number] Providers Date of Admission: 03/12/24 Primary Care [...] Primary Care Provider (more content not included)... [facility] 03-14-2024 Telephone encounter Note Will from [facility] calling patient discharging today from [facility], sepsis, UTI, weakness acute kidney injury. Plan start of care on 03/16, asking if PCP would follow patient and sign orders? Please advise [facility] 03-05-2024 Note [facility] Medical Records Department [address] [place] [address] History Physical Exam 03/05/24 0804 MR#: [id number] Acct: [id number] Name: GAYLE CHO Rep #: [id number] : 1950 73 From: Nirmal Zamora MD PCP: Dr. Jessica Clark MD Status:[facility] Location: [place] [address] HPI - General General Date of Service: 03/05/24 Chief Complaint: Right kidney stone HPI Narrative GAYLE CHO, is a 73 F who presents for laser lithotripsy and treatment of a stone in the right kidney plan to laser the stone and placed a stent on the right side. [facility] Medical History Fatigue Syncope Fibromyalgia History [...] artery ( 10/29/12) Atherosclerotic heart disease of [place] coronary artery without angina pectoris Osteoarthritis Heart [...] Clark MD; Dr. Nirmal Zamora MD Signed [facility] 02-15-2024 Telephone encounter Note Pt reports [...] Vargas RN February 15, 2024 2:45 PM [facility] 02-15-2024 Miscellaneous Notes Pt reports she has [...] 2024 2:45 PM documented in this encounter [facility] 02-08-2024 Telephone encounter Note Patient calling in and message below was reviewed. Patient verbalized understanding. Angela Nur RN [facility] 02-08-2024 Miscellaneous Notes Patient calling in and [...] pain. She reports she was went to [facility] ER on 02/03/24 for the same issue [...] call and advise. documented in this encounter [facility] 02-08-2024 Telephone encounter Note Called and updated dated patient via VM, patient id self on message. Nicholas Zuleta LPN February 08, 2024 2:54 PM [facility] 02-08-[address] Farrell will not be helpful with right flank and uti. Bowel changes yes but not the other. If pain is over a 10 as she says and is having difficulty getting around she needs to go back to ER. Thank you Angélica Morataya APRN.OTR TRUCK DRIVER [facility] 02-08-2024 Telephone encounter Note Pt called in and reports she was in to see provider on 01/02/24 for R flank pain. She reports she was went to [facility] ER on 02/03/24 for the same issue [...] to get around. Please call and advise. [facility] 01-07-2024 Telephone encounter Note Patient returned missed call and was notified of provider's message and that call back phone number was available in the voicemail if needed. Patient voiced understanding. [facility] 01-07-2024 Miscellaneous Notes Patient returned missed call [...] Angélica Morataya APRN.CNP documented in this encounter [facility] 01-07-2024 Telephone encounter Note Called and left a detailed voicemail notifying patient of providers message. Clinic phone number was left in case patient had any questions. Fanny Vargas, RN [facility] 01-07-2024 Telephone encounter Note Urine negative for specific infection. If improving with treatment, continue and finish antibiotic. If no improvement, she needs seen again to repeat urine. Thank you Angélica Morataya APRN.CNP [facility] 01-03-2024 Miscellaneous Notes Patient notified? Still awaiting [...] Angélica Morataya APRN.CNP documented in this encounter [facility] 01-03-2024 Telephone encounter Note Patient notified? [place] [id number] Telephone encounter Note Still awaiting urine culture [...] and discuss this. Thank you Angélica Morataya APRN.OTR TRUCK DRIVER T [facility] 01-02-2024 History of Present illness Narrative CC: [...] xanax and was prescribed by a previous remote computer terminal operator. Has brought this up many times over [...] symptoms occur. Patient agreeable to treatment plan. Angéliac Morataya APRN.CNP Medical Decision Making: Problems: Moderate: 2+ stable chronic illnesses and New problem with uncertain prognosis Data: Unique test(s) ordered: 3+ Risk: Low: Low risk from testing/treatment Moderate: Drug management Medical Decision Making Level: 4 - Moderate documented in this encounter [facility] 06-22-2023 Miscellaneous Notes Patient has been identified [...] pharmacy. No need to notify patient. Corazon Vera Pss documented in this encounter [facility] 05-21-2023 Miscellaneous Notes Appt 06/11 with Angélica Morataya to discuss PAtient will need to reschedule cancelled February appointment. Patient must be seen every 6 months for refill of controlled substance. Patient called to refill Xanex; not on current med list. Uses [facility] in [place]. documented in this encounter [facility] 04-11-2023 Miscellaneous Notes Patient has been identified [...] you. Juana Gupta LPN. Pharmacy verified in [facility] Patient has been identified by name [...] Debra Fermin Pss documented in this encounter [facility] 03-02-2023 Miscellaneous Notes TC to patient who [...] for follow up. Thank you Angélica Morataya APRN.OTR TRUCK DRIVER Patient has been identified by name and [...] advise. Marva Thakur documented in this encounter [facility] 01-04-2023 History of Present illness Narrative This note was created using Expariter. Subjective Gayle Cho is a 72 year [...] URINE (POC) - URINE CULTURE Flor Botello APRN.OTR TRUCK DRIVER documented in this encounter [facility] 12-19-2022 Miscellaneous Notes Patient has been identified [...] patient. Kaycee Rowe documented in this encounter [facility] 10-03-2022 Miscellaneous Notes Patient came in today for outpatient xray Recheck BP 168/84, and Temperature 98.8 States she is feeling slightly better today. Orders placed for CBC with diff and urinalysis and culture Will call with results and treatment plan documented in this encounter [facility] 10-03-2022 History of Present illness Narrative Radiology [...] 2022 11:02 AM documented in this encounter [facility] 10-02-2022 History of Present illness Narrative Subjective The history is provided by the patient. No trust vault custodian was used. HPI Gayle Cho is a [...] have confirmed and edited as necessary, the [facility] Review of Systems Constitutional: Positive for fever [...] Natalee Piper APRN.MT documented in this encounter [facility] 09-04-2022 Miscellaneous Notes Patient notified. Please tell her to make the medication last for 6 months Regards, Jessica Clark MD Gayle Michele Cho is calling Jessica Clark MD today requesting a renewal of medication under her chart. ALPRAZolam (XANAX) 0.5 mg tablet Please send to [facility] documented in this encounter [facility] 08-28-2022 Miscellaneous Notes Patient has been identified [...] Leora Johnson LPN documented in this encounter [facility] 08-28-2022 Miscellaneous Notes Patient has been identified [...] patient. Kaycee Rowe documented in this encounter [facility] 07-03-2022 Instructions Angélica Morataya APRN.CNP - 07/03/2022 2:18 PM EST Try over the counter claritin/loratadine. Can start with a sharad dose once daily to make sure you tolerate this medication documented in this encounter [facility] 07-03-2022 History of Present illness Narrative CC: [...] average[ 03/31/2022 152/80[BP Josesito[ 03/23/2022 212/83[BP Josesito average\\[ Did have a headache this weekend and [...] (NSTEMI), subendocardial infarction, initial episode of care ([facility]) 02/20/2012 Type II or unspecified [...] discussed with patient to reschedule with her remote computer terminal operator. - Continue current medication(s) - Encouraged dietary [...] Angélica Morataya APRN.CNP documented in this encounter [facility] 04-04-2022 Miscellaneous Notes Patient notified and verbalized understanding. Leora Johnson LPN Please let patient know her potassium is normal and kidney function is still similar to previously, I recommend her seeing her remote computer terminal operator for other blood pressure options and follow up with urology for stones that resulted in acute kidney injury earlier this year. Thank you Angélica Morataya APRN.CNP documented in this encounter [facility] 03-31-2022 Miscellaneous Notes Left message for return [...] Angélica Morataya APRN.CNP documented in this encounter [facility] 03-31-2022 Instructions Angélica Morataya APRN.CNP - 03/31/2022 12:06 PM EST Schedule with cardiology and urology. documented in this encounter [facility] 03-31-2022 History of Present illness Narrative CC: Patient presents with: Recheck: BP follow up HPI Gayle Cho is a 72 year old female who presents today for blood pressure. Patient has had uncontrolled blood pressure for quite a while and has changed medications and stopped medications on her own in the past. Has not seen cardi[facility] in a [facility] with previous [facility]. Had acute kidney failure related to kidney [...] (NSTEMI), subendocardial infarction, initial episode of care ([facility]) 02/20/2012 Type II or unspecified [...] Angélica Morataya APRN.MT documented in this encounter [facility] 03-31-2022 Miscellaneous Notes Patient returned call and given provider's message re: BP. Patient will discuss at her appt at 11:20 today with Lead Ramp Service Man. documented in this encounter [facility] 03-29-2022 Miscellaneous Notes left message to notify [...] Georgina Shirley LPN documented in this encounter [facility] 03-23-2022 History of Present illness Narrative Manual Readin/82 Pulse: 66 BP Josesito average: [...] Georgina Shirley LPN documented in this encounter [facility] 03-14-2022 Miscellaneous Notes Patient has been identified [...] Juana Gupta LPN documented in this encounter [facility] 02-24-2022 Miscellaneous Notes Noted. Change appears to [...] Shital Encarnacion RN documented in this encounter [facility] 12-09-2021 Miscellaneous Notes The following approved medication [...] Fanny Vargas RN documented in this encounter [facility] 10-21-2021 Miscellaneous Notes Phone call placed, patient advised (see prior provider encounter) Patient verbalized understanding, urine culture results faxed per request to Dr. Zamora [phone]. Muriel Gupta LPN documented in this encounter [facility] 10-19-2021 Miscellaneous Notes Patient calling asking that the lab results from express care visit yesterday be faxed to her Urologist, Dr Zamora at [phone]. Printed BMP, CBC, Urine faxed as requested. Urine culture still in process. documented in this encounter [facility] 10-18-2021 Miscellaneous Notes Flor, Please take my [...] to Dr. Clark. documented in this encounter [facility] 10-18-2021 History of Present illness Narrative This note was created using Expariter. Subjective Gayle Cho is a 71 year [...] vomiting/diarrhea No OTC remedies or medications used ACID CUTTER. Pt states she had urinary stones removed in July 2021 at [facility]. Unclear on exact procedure (lithotripsy vs. Stent placement) or physician who oversaw here care. The history is provided by the patient. No trust vault custodian was used. Hematuria This is a new [...] (NSTEMI), subendocardial infarction, initial episode of care ([facility]) 02/20/2012 Type II or unspecified [...] and immunocompromised state. Negative for food allergies. [facility] with stents Neurological: Negative for dizziness, tremors, [...] up with PCP Jennifer Ballard TEACHING PROVIDER (Physician/PA/BRICK POINTER) NOTE OF PERSONAL INVOLVEMENT IN CARE: I have personally seen and examined the patient and performed the medical decision-making components. I have reviewed the Advanced Practice Registered Nurse (BRICK POINTER) Student's documentation and verified the findings in the note as written. Any additions or changes are noted in bold/italics. Signature: Flor Botello Date: 10/18/2021 Time: 3:20 PM documented in this encounter [facility] 08-19-2021 Miscellaneous Notes Patient notified and patient [...] Angélica Morataya APRN.MT documented in this encounter [facility] 08-18-2021 Miscellaneous Notes Patient notified. Verbalized understanding. [...] a follow up visit is important Celeste MEJIASchild care counselor from [facility] calls to report that patient was seen at [facility] on 08/12/2021. While in the hospital patient [...] Shital Encarnacion RN documented in this encounter [facility] 08-17-2021 History of Present illness Narrative Reason [...] on the offset. She was discharged from [facility] on July 23. She was admitted [...] (NSTEMI), subendocardial infarction, initial episode of care ([facility]) 02/20/2012 Type II or unspecified [...] Jessica Clark MD documented in this encounter [facility] 08-04-2021 History of Present illness Narrative Radiology [...] 2021 9:58 AM documented in this encounter [facility] 09-13-2020 History of Present illness Narrative Radiology [...] 2020 1:48 PM documented in this encounter [facility] 02-04-2019 History of Past i llness Narrative [...] of this encounter (statuses as of 08/17/2021) [facility] History of Past illness Narrative* Problem Noted [...] of this encounter (statuses as of 08/18/2021) [facility] History of Past illness Narrative* Problem Noted [...] of this encounter (statuses as of 08/19/2021) [facility] History of Past illness Narrative* Problem Noted [...] of this encounter (statuses as of 10/18/2021) [facility] History of Past illness Narrative* Problem Noted [...] of this encounter (statuses as of 10/18/2021) [facility] History of Past illness Narrative* Problem Noted [...] of this encounter (statuses as of 10/19/2021) [facility] History of Past illness Narrative* Problem Noted Date Resolved Date Tobacco abuse counseling 02/04/2019 022 Bronchitis 02/04/2019 07/28/2021 SUMMARY 04/27/2016 07/28/2021 Overview: 66 year old female with PMHx of HTN, HLD, DM2, hypothyroid and CAD c/b prior NSTEMI s/p two rounds of PCI (2011 BMS to OM1, MARIAELEAN to OM1 and to pLCx in 2012) [...] of this encounter (statuses as of 10/21/2021) [facility] History of Past illness Narrative* Problem Noted [...] of this encounter (statuses as of 12/09/2021) [facility] History of Past illness Narrative* Problem Noted [...] of this encounter (statuses as of 02/24/2022) [facility] History of Past illness Narrative* Problem Noted [...] of this encounter (statuses as of 03/16/2022) [facility] of Past illness Narrative* Problem Noted [...] of this encounter (statuses as of 03/17/2022) [facility] History of Past illness Narrative* Problem Noted [...] of this encounter (statuses as of 03/23/2022) [facility] History of Past illness Narrative* Problem Noted [...] of this encounter (statuses as of 03/29/2022) [facility] History of Past illness Narrative* Problem Noted [...] of this encounter (statuses as of 03/31/2022) [facility] History of Past illness Narrative* Problem Noted [...] of this encounter (statuses as of 03/31/2022) [facility] History of Past illness Narrative* Problem Noted [...] of this encounter (statuses as of 04/04/2022) [facility] History of Past illness Narrative* Problem Noted [...] of this encounter (statuses as of 04/10/2022) [facility] of Past illness Narrative* Problem Noted [...] of this encounter (statuses as of 06/16/2022) [facility] of Past illness Narrative* Problem Noted [...] of this encounter (statuses as of 07/04/2022) [facility] of Past illness Narrative* Problem Noted [...] of this encounter (statuses as of 07/17/2022) [facility] of Past illness Narrative* Problem Noted [...] of this encounter (statuses as of 08/29/2022) [facility] of Past illness Narrative* Problem Noted [...] of this encounter (statuses as of 08/29/2022) [facility] of Past illness Narrative* Problem Noted [...] of this encounter (statuses as of 09/04/2022) [facility] of Past [facility] Narrative* Problem Noted [...] of this encounter (statuses as of 10/03/2022) [facility] of Past illness Narrative* Problem Noted [...] of this encounter (statuses as of 10/03/2022) [facility] of Past illness Narrative* Problem Noted [...] of this encounter (statuses as of 12/20/2022) [facility] of Past illness Narrative* Problem Noted [...] of this encounter (statuses as of 01/05/2023) [facility] Narrative* Problem Noted [...] of this encounter (statuses as of 03/02/2023) [facility] Narrative* Problem Noted [...] of this encounter (statuses as of 04/11/2023) [facility]2019 History of Past illness Narrative* Problem Noted [...] of this encounter (statuses as of 05/21/2023) [facility] History of Past illness Narrative* Problem Noted [...] of this encounter (statuses as of 06/23/2023) [facility] note* Diagnosis Onset Date Resolution Status Accelerated hypertension acu te Acute UTI acute Ophthalmic herpes zoster infection acute Right distal ureteral calculus acute Urolithiasis acute [facility] Work Phone: Evaluation note* Diagnosis Urinary tract infection without hematuria, site unspecified- Primary Urinary tract stones Urinary calculus, unspecified Essential hypertension Unspecified essential hypertension documented in this encounter [facility] note* Diagnosis Onset Date Resolution Status Acute UTI acute Right distal ureteral calculus acute Urolithiasis acute [facility] Work Phone: Evaluation note* Diagnosis Gross hematuria- Primary documented in this encounter [facility] note* Diagnosis Hyperlipidemia, unspecified hyperlipidemia type Hypothyroidism, unspecified type Benzodiazepine dependence (HCC) Sedative, hypnotic or anxiolytic dependence, unspecified documented in this encounter [facility] note* Diagnosis Hyperlipidemia, unspecified hyperlipidemia type documented in this encounter [facility] note* Diagnosis Medication management Encounter for long-term (current) use of other medications documented in this encounter [facility] note* Diagnosis Hypertension, unspecified type- Primary documented in this encounter [facility] note* Diagnosis Hypertension, unspecified type- Primary Acute cough Hyperkalemia Hyperpotassemia Prediabetes Other abnormal glucose Urinary tract stones Urinary calculus, unspecified documented in this encounter [facility] note* Diagnosis Hyperlipidemia Other and unspecified hyperlipidemia documented in this encounter [facility] note* Diagnosis Other fatigue- Primary Hypertension, unspecified type Hyperlipidemia, unspecified hyperlipidemia type Chronic cough Cough Depression, unspecified depression type Prediabetes Other abnormal glucose Hypothyroidism, unspecified type Vitamin D deficiency Unspecified vitamin D deficiency documented in this encounter [facility] note* Diagnosis Encounter for screening mammogram for breast cancer documented in this encounter [facility] note* Diagnosis Benzodiazepine dependence (HCC) Sedative, hypnotic or anxiolytic dependence, unspecified [facility] Diagnosis Acute cough- Primary [facility] Diagnosis Fever, unspecified fever cause- Primary Acute cough documented in this encounter [facility] note* Diagnosis Hypothyroidism, unspecified type documented in this encounter [facility] noteNo assessment information [facility] Work [facility]: [facility]* Diagnosis Hematuria, unspecified type- Primary documented in this encounter [facility] note* Diagnosis Right flank pain- Primary [...] anxiolytic dependence, unspecified [facility] Diagnosis Hyperlipidemia, unspecified hyperlipidemia type- Primary Hypothyroidism, unspecified type documented in this encounter [facility] note* Diagnosis Acute cough [facility] Diagnosis Hypothyroidism, unspecified type documented in this encounter [facility] note* Diagnosis Onychomycosis Dermatophytosis of nail Subungual exostosis Exostosis of unspecified site documented in this encounter [facility] note* Diagnosis Hip pain Pain in joint, pelvic region and thigh documented in this encounter [facility] note* Diagnosis Uncontrolled hypertension- Primary Unspecified essential hypertension Vitamin D deficiency Unspecified vitamin D deficiency Iron deficiency Iron deficiency anemia, unspecified Stage 3a chronic kidney disease (HCC) Hypothyroidism, unspecified type [facility] Diagnosis Recurrent UTI- Primary Urinary tract infection, site not specified [facility] Diagnosis Hypothyroidism, unspecified type [facility] Diagnosis Other fatigue- Primary Lower abdominal [...] dependence, cigarettes, uncomplicated [facility]* Diagnosis Hypothyroidism, unspecified type documented in this encounter [facility] note* Diagnosis Weakness of both lower extremities Chronic midline low back pain, unspecified whether sciatica present Bilateral hip pain Pain in joint, pelvic region and thigh Other fatigue Chest pain, unspecified type Subacute cough Cough documented in this encounter [facility] note* Diagnosis Other fatigue- Primary Muscle aches Multiple joint pain Pain in joint, multiple sites Elevated sed rate Elevated sedimentation rate documented in this encounter [facility] for referral (narrative)* Diagnostic Procedure Only (Routine) - Pending Review Specialty Diagnoses / Procedures Referred By Maritza ferguson Referred To Contact [facility] Diagnoses Encounter for screening mammogram for breast cancer Procedures KALIA SCREENING SCREENING MAMMOGRAPHY BI 2-VIEW BREAST INC CAD Jessica Clark MD [address] [place] [address] [facility] [address] [place] [address] Referral ID Status Reason Start Date Expiration Date Visits Requested Visits Authorized [id number] Pending Review Auto-Generat ed Referral 07/12/2022 08/11/2023 1 1 [facility] for referral (narrative)* Diagnostic Procedure Only (Routine) - Closed Specialty Diagnoses / Procedures Referred By Maritza ferguson Referred To Contact [facility] Diagnoses Onychomycosis Subungual exostosis Procedures XR TOE AP/LAT/OBL LEFT X-RAY TOE(S) Rachid Ritter [address] [place] [address] [place] [address] Referral ID Status Reason Start Date Expiration Date V isits Requested Visits Authorized [id number] Closed Auto-Generate d Referral 05/25/2021 06/24/2022 1 1 [facility] for visit Narrative* Diagnostic Procedure Only (Routine) - Closed Specialty Diagnoses / Procedures Referred By Contac t Referred To Contact [facility] Diagnoses Onychomycosis Subungual exostosis Procedures XR TOE AP/LAT/OBL LEFT X-RAY TOE(S) Riya Rachid [address] [place] [address] [place] [address] Referral ID Status Reason Start Date Expiration Date V isits Requested Visits Authorized [id number] Closed Auto-Generate d Referral 05/25/2021 06/24/2022 1 1 [facility] for visit Narrative* Diagnostic Procedure Only (Routine) - Closed Specialty Diagnoses / Procedures Referred By Contac t Referred To Contact [facility] Diagnoses Weakness of both lower extremities Bilateral hip pain Procedures XR HIP BILATERAL 5V PEL/AP/LAT EACH HIP RADEX HIPS BILATERAL WITH PELVIS MINIMUM 5 VIEWS Angélica Morataya APRN.[employer] [address] [place] [address] Phone: tel: fax: [place] [address] Referral ID Status Reason Start Date Expiration Date V isits Requested Visits Authorized [id number] Closed Auto-Generate d Referral 01/12/2025 02/11/2026 1 1 [facility] Summary Purpose Family History No Family History Records Found Relationship Condition Age at Onset Recorded Date/T niya mother Cardiac disease Unknown Hypertension Unknown Hyperlipidemia Unknown father Malignant neoplasm Unknown Advance Directives No Advanced Directives Records Found Advance Directive Response Recorded Date/ Time Living Will No August 12, 2021 4:41am Power of Farm Planner No August 12 4:41am Documents on File Type Date Recorded 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 Advance Directive(s) 04/26/2016 8:02 PM Advance Directive Response Recorded Date/ Time Living Will No August 19, 2021 3:04pm Power of Farm Planner No August 19 3:04pm Advance Directive Response Recorded Date/ Time Living Will No January 04 5:43pm Power of Farm Planner Yes January 04, 023 5:43pm Name of Medical Power of Farm Planner SHAHEED BORDEN January 04, 2023 5:43pm Chief [...] disease (HCC) Procedures CONSULT TO CARDIOLOGY OFFICE/OUTPATIENT [facility] MDM 60 MINUTES Older, MARGO Lindsay.[employer] [address] [place] [address] Referral ID Status Reason Start Date Expiration Date Visits Requested Visits Authorized [id number] Authorized PCP Requested Referral 01/02/2024 01/01/2025 1 1 Additional Source Comments INFORMATION SOURCE (unrecogn ized section and content) DATE CREATED AUTHOR 11/07/2017 [facility] DATE CREATED AUTHOR AUTHOR'S ORGANIZ ATION 11/22/2017 [facility] DATE CREATED AUTHOR AUTHOR'S ORGANIZ ATION 06/03/2024 [facility] DATE CREATED AUTHOR AUTHOR'S ORGANIZ ATION 02/09/2025 [facility] Source Comments (unrecognize d section and content) In the event this informatio n is protected by the Federal Confidentiality of Alcohol and Drug Abuse Patient Records regulations: The Federal rules restrict any use of the information to criminally investigate or prosecute any alcohol or drug abuse patient.[facility] the event this information is protected by the Federal Confidentiality of Alcohol and Drug Abuse Patient Records regulations: The Federal rules restrict any use of the information to criminally investigate or prosecute any alcohol or drug abuse patient.[facility] the event this information is protected by the Federal Confidentiality of Alcohol and Drug Abuse Patient Records regulations: The Federal rules restrict any use of the information to criminally investigate or prosecute any alcohol or drug abuse patient.[facility] the event this information is protected by the Federal Confidentiality of Alcohol and Drug Abuse Patient Records regulations: The Federal rules restrict any use of the information to criminally investigate or prosecute any alcohol or drug abuse patient.[facility] the event this information is protected by the Federal Confidentiality of Alcohol and Drug Abuse Patient Records regulations: The Federal rules restrict any use of the information to criminally investigate or prosecute any alcohol or drug abuse patient.[facility] the event this information is protected by the Federal Confidentiality of Alcohol and Drug Abuse Patient Records regulations: The Federal rules restrict any use of the information to criminally investigate or prosecute any alcohol or drug abuse patient.[facility] the event this information is protected by the Federal Confidentiality of Alcohol and Drug Abuse Patient Records regulations: The Federal rules restrict any use of the information to criminally investigate or prosecute any alcohol or drug abuse patient.[facility] the event this information is protected by the Federal Confidentiality of Alcohol and Drug Abuse Patient Records regulations: The Federal rules restrict any use of the information to criminally investigate or prosecute any alcohol or drug abuse patient.[facility] the event this information is protected by the Federal Confidentiality of Alcohol and Drug Abuse Patient Records regulations: The Federal rules restrict any use of the information to criminally investigate or prosecute any alcohol or drug abuse patient.[facility] the event this information is protected by the Federal Confidentiality of Alcohol and Drug Abuse Patient Records regulations: The Federal rules restrict any use of the information to criminally investigate or prosecute any alcohol or drug abuse patient.[facility] the event this information is protected by the Federal Confidentiality of Alcohol and Drug Abuse Patient Records regulations: The Federal rules restrict any use of the information to criminally investigate or prosecute any alcohol or drug abuse patient.[facility] the event this information is protected by the Federal Confidentiality of Alcohol and Drug Abuse Patient Records regulations: The Federal rules restrict any use of the information to criminally investigate or prosecute any alcohol or drug abuse patient.[facility] the event this information is protected by the Federal Confidentiality of Alcohol and Drug Abuse Patient Records regulations: The Federal rules restrict any use of the information to criminally investigate or prosecute any alcohol or drug abuse patient.[facility] the event this information is protected by the Federal Confidentiality of Alcohol and Drug Abuse Patient Records regulations: The Federal rules restrict any use of the information to criminally investigate or prosecute any alcohol or drug abuse patient.[facility] the event this information is protected by the Federal Confidentiality of Alcohol and Drug Abuse Patient Records regulations: The Federal rules restrict any use of the information to criminally investigate or prosecute any alcohol or drug abuse patient.[facility] the event this information is protected by the Federal Confidentiality of Alcohol and Drug Abuse Patient Records regulations: The Federal rules restrict any use of the information to criminally investigate or prosecute any alcohol or drug abuse patient.[facility] the event this information is protected by the Federal Confidentiality of Alcohol and Drug Abuse Patient Records regulations: The Federal rules restrict any use of the information to criminally investigate or prosecute any alcohol or drug abuse patient.[facility] the event this information is protected by the Federal Confidentiality of Alcohol and Drug Abuse Patient Records regulations: The Federal rules restrict any use of the information to criminally investigate or prosecute any alcohol or drug abuse patient.[facility] the event this information is protected by the Federal Confidentiality of Alcohol and Drug Abuse Patient Records regulations: The Federal rules restrict any use of the information to criminally investigate or prosecute any alcohol or drug abuse patient.[facility] the event this information is protected by the Federal Confidentiality of Alcohol and Drug Abuse Patient Records regulations: The Federal rules restrict any use of the information to criminally investigate or prosecute any alcohol or drug abuse patient.[facility] the event this information is protected by the Federal Confidentiality of Alcohol and Drug Abuse Patient Records regulations: The Federal rules restrict any use of the information to criminally investigate or prosecute any alcohol or drug abuse patient.[facility] the event this information is protected by the Federal Confidentiality of Alcohol and Drug Abuse Patient Records regulations: The Federal rules restrict any use of the information to criminally investigate or prosecute any alcohol or drug abuse patient.[facility] the event this information is protected by the Federal Confidentiality of Alcohol and Drug Abuse Patient Records regulations: The Federal rules restrict any use of the information to criminally investigate or prosecute any alcohol or drug abuse patient.[facility] the event this information is protected by the Federal Confidentiality of Alcohol and Drug Abuse Patient Records regulations: The Federal rules restrict any use of the information to criminally investigate or prosecute any alcohol or drug abuse patient.[facility] the event this information is protected by the Federal Confidentiality of Alcohol and Drug Abuse Patient Records regulations: The Federal rules restrict any use of the information to criminally investigate or prosecute any alcohol or drug abuse patient.[facility] the event this information is protected by the Federal Confidentiality of Alcohol and Drug Abuse Patient Records regulations: The Federal rules restrict any use of the information to criminally investigate or prosecute any alcohol or drug abuse patient.[facility] the event this information is protected by the Federal Confidentiality of Alcohol and Drug Abuse Patient Records regulations: The Federal rules restrict any use of the information to criminally investigate or prosecute any alcohol or drug abuse patient.[facility] the event this information is protected by the Federal Confidentiality of Alcohol and Drug Abuse Patient Records regulations: The Federal rules restrict any use of the information to criminally investigate or prosecute any alcohol or drug abuse patient.[facility] the event this information is protected by the Federal Confidentiality of Alcohol and Drug Abuse Patient Records regulations: The Federal rules restrict any use of the information to criminally investigate or prosecute any alcohol or drug abuse patient.[facility] the event this information is protected by the Federal Confidentiality of Alcohol and Drug Abuse Patient Records regulations: The Federal rules restrict any use of the information to criminally investigate or prosecute any alcohol or drug abuse patient.[facility] the event this information is protected by the Federal Confidentiality of Alcohol and Drug Abuse Patient Records regulations: The Federal rules restrict any use of the information to criminally investigate or prosecute any alcohol or drug abuse patient.[facility] the event this information is protected by the Federal Confidentiality of Alcohol and Drug Abuse Patient Records regulations: The Federal rules restrict any use of the information to criminally investigate or prosecute any alcohol or drug abuse patient.[facility] the event this information is protected by the Federal Confidentiality of Alcohol and Drug Abuse Patient Records regulations: The Federal rules restrict any use of the information to criminally investigate or prosecute any alcohol or drug abuse patient.[facility] the event this information is protected by the Federal Confidentiality of Alcohol and Drug Abuse Patient Records regulations: The Federal rules restrict any use of the information to criminally investigate or prosecute any alcohol or drug abuse patient.[facility] the event this information is protected by the Federal Confidentiality of Alcohol and Drug Abuse Patient Records regulations: The Federal rules restrict any use of the information to criminally investigate or prosecute any alcohol or drug abuse patient.[facility] the event this information is protected by [...] or prosecute any alcohol or drug abuse patient.[facility] the event this information is protected by the Federal Confidentiality of Alcohol and Drug Abuse Patient Records regulations: The Federal rules restrict any use of the information to criminally investigate or prosecute any alcohol or drug abuse patient.[facility] the event this information is protected by the Federal Confidentiality of Alcohol and Drug Abuse Patient Records regulations: The Federal rules restrict any use of the information to criminally investigate or prosecute any alcohol or drug abuse patient.[facility] the event this information is protected by the Federal Confidentiality of Alcohol and Drug Abuse Patient Records regulations: The Federal rules restrict any use of the information to criminally investigate or prosecute any alcohol or drug abuse patient.[facility] the event this information is protected by the Federal Confidentiality of Alcohol and Drug Abuse Patient Records regulations: The Federal rules restrict any use of the information to criminally investigate or prosecute any alcohol or drug abuse patient.[facility] the event this information is protected by the Federal Confidentiality of Alcohol and Drug Abuse Patient Records regulations: The Federal rules restrict any use of the information to criminally investigate or prosecute any alcohol or drug abuse patient.[facility] the event this information is protected by the Federal Confidentiality of Alcohol and Drug Abuse Patient Records regulations: The Federal rules restrict any use of the information to criminally investigate or prosecute any alcohol or drug abuse patient.[facility] the event this information is protected by the Federal Confidentiality of Alcohol and Drug Abuse Patient Records regulations: The Federal rules restrict any use of the information to criminally investigate or prosecute any alcohol or drug abuse patient.[facility] the event this information is protected by the Federal Confidentiality of Alcohol and Drug Abuse Patient Records regulations: The Federal rules restrict any use of the information to criminally investigate or prosecute any alcohol or drug abuse patient.[facility] the event this information is protected by the Federal Confidentiality of Alcohol and Drug Abuse Patient Records regulations: The Federal rules restrict any use of the information to criminally investigate or prosecute any alcohol or drug abuse patient.[facility] the event this information is protected by the Federal Confidentiality of Alcohol and Drug Abuse Patient Records regulations: The Federal rules restrict any use of the information to criminally investigate or prosecute any alcohol or drug abuse patient.[facility] the event this information is protected by the Federal Confidentiality of Alcohol and Drug Abuse Patient Records regulations: The Federal rules restrict any use of the information to criminally investigate or prosecute any alcohol or drug abuse patient.[facility] the event this information is protected by the Federal Confidentiality of Alcohol and Drug Abuse Patient Records regulations: The Federal rules restrict any use of the information to criminally investigate or prosecute any alcohol or drug abuse patient.[facility] the event this information is protected by the Federal Confidentiality of Alcohol and Drug Abuse Patient Records regulations: The Federal rules restrict any use of the information to criminally investigate or prosecute any alcohol or drug abuse patient.[facility] the event this information is protected by the Federal Confidentiality of Alcohol and Drug Abuse Patient Records regulations: The Federal rules restrict any use of the information to criminally investigate or prosecute any alcohol or drug abuse patient.[facility] the event this information is protected by the Federal Confidentiality of Alcohol and Drug Abuse Patient Records regulations: The Federal rules restrict any use of the information to criminally investigate or prosecute any alcohol or drug abuse patient.[facility] the event this information is protected by the Federal Confidentiality of Alcohol and Drug Abuse Patient Records regulations: The Federal rules restrict any use of the information to criminally investigate or prosecute any alcohol or drug abuse patient.[facility] PrebleIn the event this information is protected by the Federal Confidentiality of Alcohol and Drug Abuse Patient Records regulations: The Federal rules restrict any use of the information to criminally investigate or prosecute any alcohol or drug abuse patient.[facility] PrebleIn the event this information is protected by the Federal Confidentiality of Alcohol and Drug Abuse Patient Records regulations: The Federal rules restrict any use of the information to criminally investigate or prosecute any alcohol or drug abuse patient.[facility] PrebleIn the event this information is protected by the Federal Confidentiality of Alcohol and Drug Abuse Patient Records regulations: The Federal rules restrict any use of the information to criminally investigate or prosecute any alcohol or drug abuse patient.[facility]bleIn the event this information is protected by the Federal Confidentiality of Alcohol and Drug Abuse Patient Records regulations: The Federal rules restrict any use of the information to criminally investigate or prosecute any alcohol or drug abuse patient.[facility]bleIn the event this information is protected by the Federal Confidentiality of Alcohol and Drug Abuse Patient Records regulations: The Federal rules restrict any use of the information to criminally investigate or prosecute any alcohol or drug abuse patient.[facility]bleIn the event this information is protected by the Federal Confidentiality of Alcohol and Drug Abuse Patient Records regulations: The Federal rules restrict any use of the information to criminally investigate or prosecute any alcohol or drug abuse patient.[facility]bleIn the event this information is protected by the Federal Confidentiality of Alcohol and Drug Abuse Patient Records regulations: The Federal rules restrict any use of the information to criminally investigate or prosecute any alcohol or drug abuse patient.[facility]bleIn the event this information is protected by the Federal Confidentiality of Alcohol and Drug Abuse Patient Records regulations: The Federal rules restrict any use of the information to criminally investigate or prosecute any alcohol or drug abuse patient.[facility]bleIn the event this information is protected by the Federal Confidentiality of Alcohol and Drug Abuse Patient Records regulations: The Federal rules restrict any use of the information to criminally investigate or prosecute any alcohol or drug abuse patient.[facility]bleIn the event this information is protected by the Federal Confidentiality of Alcohol and Drug Abuse Patient Records regulations: The Federal rules restrict any use of the information to criminally investigate or prosecute any alcohol or drug abuse patient.[facility] Reason for Visit (unrecogniz ed section and [...] Onset Date Comments Transition Of Care 03/18/2024 [facility] P[facility] Hospital Discharge 03/14/24 Reason Comments home health update Reason Comments home health requesting verbal orders Reason Comments Hospital Follow Up Reason Onset Date Comments Transition Of Care 03/25/2024 [facility] Hospital- Follow-up Day 11 Reason [...] Care Teams (unrecognized sec tion and content) Test Architect Relationship Specialty Start Date End Date Jessica Clark MD [address] [facility] [place] [address] PCP - General Internal Medicine 02/17/20 Test Architect Relationship Specialty Start Date End Date Jessica Clark MD [address] [facility] [place] [address] PCP - General Internal Medicine 02/17/20 Test Architect Relationship Specialty Start Date End Date Jessica Clark MD [address] [facility] [place] [address] PCP - General Internal Medicine 02/17/20 Test Architect Relationship Specialty Start Date End Date Jessica Clark MD [address] [facility] [place] [address] PCP - General Internal Medicine 10/18/21 Test Architect Relationship Specialty Start Date End Date Jessica Clark MD [address] [facility] [place] [address] PCP - General Internal Medicine 10/18/21 Test Architect Relationship Specialty Start Date End Date Jessica Clark MD [address] [facility] [place] [address] PCP - General Internal Medicine 01/06/22 Test Architect Relationship Specialty Start Date End Date Jessica Clark MD [address] [place] [address] PCP - General Internal Medicine 01/06/22 Test Architect Relationship Specialty Start Date End Date Jessica Clark MD [address] [place] [address] PCP - General Internal Medicine 01/06/22 Test Architect Relationship Specialty Start Date End Date Jessica Clark MD [address] [facility] [place] [address] PCP - General Internal Medicine 01/06/22 Test Architect Relationship Specialty Start Date End Date Jessica Clark MD [address] [facility] [place] [address] PCP - General Internal Medicine 01/06/22 Test Architect Relationship Specialty Start Date End Date Jessica Clark MD [address] [facility] [place] [address] PCP - General Internal Medicine 01/06/22 Test Architect Relationship Specialty Start Date End Date Jessica Clark MD [address] [facility] [place] [address] PCP - General Internal Medicine 01/06/22 Test Architect Relationship Specialty Start Date End Date Jessica Clark MD [address] [facility] [place] [address] PCP - General Internal Medicine 01/06/22 Test Architect Relationship Specialty Start Date End Date Jessica Clark MD [address] [facility] [place] [address] PCP - General Internal Medicine 01/06/22 Test Architect Relationship Specialty Start Date End Date Jessica Clark MD [address] [facility] [place] [address] PCP - General Internal Medicine 01/06/22 Test Architect Relationship Specialty Start Date End Date Jessica Clark MD [address] [facility] [place] [address] PCP - General Internal Medicine 01/06/22 Test Architect Relationship Specialty Start Date End Date Jessica Clark MD [address] [facility] [place] [address] PCP - General Internal Medicine 01/06/22 Team Status: Active Member Role Status Dates Dr. Parviz Ontiveros MD Family Provider Active Dr. Jessica Clark MD Primary Care Provider Active Team Status: Inactive Member Role Status Dates Dr. Jessica Clark MD Primary Care Provider Active Dr. Denzel Cody DO Emergency Provider Active Test Architect Relationship Specialty Start Date End Date Jessica Clark MD [address] [facility] [place] [address] PCP - General Internal Medicine 01/06/22 Test Architect Relationship Specialty Start Date End Date Jessica Clark MD [address] [facility] [place] [address] PCP - General Internal Medicine 01/06/22 Test Architect Relationship Specialty Start Date End Date Jessica Clark MD [address] [facility] [place] [address] PCP - General Internal Medicine 01/06/22 Test Architect Relationship Specialty Start Date End Date Jessica Clark MD [address] [facility] [place] [address] PCP - General Internal Medicine 01/06/22 Test Architect Relationship Specialty Start Date End Date Jessica Clark MD [address] [facility] [place] [address] PCP - General Internal Medicine 01/06/22 Test Architect Relationship Specialty Start Date End Date Jessica Clark MD [address] [facility] [place] [address] PCP - General Internal Medicine 01/06/22 Test Architect Relationship Specialty Start Date End Date Jessica Clark MD [address] [facility] [place] [address] PCP - General Internal Medicine 01/06/22 Test Architect Relationship Specialty Start Date End Date Jessica Clark MD [address] [facility] [place] [address] PCP - General Internal Medicine 01/06/22 Test Architect Relationship Specialty Start Date End Date Jessica Clark MD [address] [facility] [place] [address] PCP - General Internal Medicine 02/17/20 08/25/21 Test Architect Relationship Specialty Start Date End Date Jessica Clark MD [address] [facility] [place] [address] PCP - General Internal Medicine 02/17/20 08/25/21 Test Architect Relationship Specialty Start Date End Date Jessica Clark MD [address] [facility] [place] [address] PCP - General Internal Medicine 01/06/22 Delmar Gallegos, RANDELL [address] [place] [address] Primary Care Personnel Worker 03/17/24 Test Architect Relationship Specialty Start Date End Date Jessica Clark MD [address] [facility] [place] [address] PCP - General Internal Medicine 01/06/22 03/18/24 Delmar Gallegos, RN [address] [place] [address] Primary Care Personnel Worker 03/17/24 Test Architect Relationship Specialty Start Date End Date Delmar Gallegos, RN [address] [place] [address] Primary Care Personnel Worker 03/17/24 Test Architect Relationship Specialty Start Date End Date Delmar Gallegos, RN [address] [place] [address] Primary Care Personnel Worker 03/17/24 Test Architect Relationship Specialty Start Date End Date Delmar Gallegos, RN [address] [place] [address] Primary Care Personnel Worker 03/17/24 Test Architect Relationship Specialty Start Date End Date Delmar Gallegos, RN [address] [place] [address] Primary Care Personnel Worker 03/17/24 Test Architect Relationship Specialty Start Date End Date Jessica Clark MD [address] [place] [address] PCP - General Internal Medicine 01/06/22 03/18/24 Delmar Gallegos RN [address] [place] [address] Primary Care Personnel Worker 03/17/24 Test Architect Relationship Specialty Start Date End Date Jessica Clark MD [address] [place] [address] PCP - General Internal Medicine 04/08/24 Delmar Gallegos RN [address] [place] [address] Primary Care Personnel Worker 03/17/24 Test Architect Relationship Specialty Start Date End Date Jessica lCark MD [address] [place] [address] PCP - General Internal Medicine 04/08/24 Roberta Rascon PA-C [address] [place] [address] [facility] Family [facility] 04/27/24 Angélica Morataya APRN.CNP [address] [place] [address] Project [facility] Internal Medicine 04/27/24 Zoya De PA-C [address] [place] [address] [facility] Family [facility] 04/27/24 Test Architect Relationship Specialty Start Date End Date Jessica Clark MD [address] [place] [address] PCP - General Internal Medicine 04/08/24 Roberta Rascon PA-C [address] [place] [address] [facility] 04/27/24 Angélica Morataya APRN.OTR TRUCK DRIVER [address] [place] [address] Project Builder Internal Medicine 04/27/24 Zoya De PA-C [address] [place] [address] [facility] Family [facility] 04/27/24 Test Architect Relationship Specialty Start Date End Date Jessica Clark MD [address] [place] [address] PCP - General Internal Medicine 04/08/24 Roberta Rascon PA-C [address] [place] [address] [facility] 04/27/24 Angélica Morataya APRN.OTR TRUCK DRIVER [address] [place] [address] Project Builder Internal Medicine 04/27/24 Zoya De PA-C [address] [place] [address] [employer] [facility] Family Medicine 04/27/24 Test Architect Relationship Specialty Start Date End Date Jessica Clark MD [address] [facility] [place] [address] PCP - General Internal Medicine 04/08/24 Angélica Morataya APRN.OTR TRUCK DRIVER [address] [facility] [place] [address] Project Builder Internal Medicine 04/27/24 Test Architect Relationship Specialty Start Date End Date Jessica Clark MD [address] [facility] [place] [address] PCP - General Internal Medicine 04/08/24 Angélica Morataya APRN.OTR TRUCK DRIVER [address] [facility] [place] [address] Project Builder Internal Medicine 04/27/24 Test Architect Relationship Specialty Start Date End Date Jessica Clark MD [address] [facility] [place] [address] PCP - General Internal Medicine 04/08/24 Angélica Morataya APRN.OTR TRUCK DRIVER [address] [facility] [place] [address] Project Builder Internal Medicine 04/27/24 Test Architect Relationship Specialty Start Date End Date Jessica Clark MD [address] [facility] [place] [address] PCP - General Internal Medicine 04/08/24 Angélica Morataya APRN.OTR TRUCK DRIVER [address] [facility] [place] [address] Project Builder Internal Medicine 04/27/24 Test Architect Relationship Specialty Start Date End Date Jessica Clark MD [address] [facility] [place] [address] PCP - General Internal Medicine 04/08/24 Angélica Morataya APRN.OTR TRUCK DRIVER [address] [facility] [place] [address] Project Builder Internal Medicine 04/27/24 Test Architect Relationship Specialty Start Date End Date Jessica Clark MD [address] [facility] [place] [address] PCP - General Internal Medicine 04/08/24 Angélica Morataya APRN.OTR TRUCK DRIVER [address] [facility] [place] [address] Project Builder Internal Medicine 04/27/24 Test Architect Relationship Specialty Start Date End Date Jessica Clark MD [address] [facility] [place] [address] PCP - General Internal Medicine 04/08/24 Angélica Morataya APRN.OTR TRUCK DRIVER [address] [facility] [place] [address] Project Builder Internal Medicine 04/27/24 Test Architect Relationship Specialty Start Date End Date Jessica Clark MD [address] [facility] [place] [address] PCP - General Internal Medicine 04/08/24 Angélica Morataya APRN.OTR TRUCK DRIVER [address] [facility] [place] [address] Project Builder Internal Medicine 04/27/24 Test Architect Relationship Specialty Start Date End Date Jessica Clark MD [address] [facility] [place] [address] PCP - General Internal Medicine 04/08/24 Angélica Morataya APRN.[facility] [address] [place] [address] Project Builder Internal Medicine 04/27/24 FOR RECORDS PERTAINING TO [...] BE BASED ON THE PRIMARY CLINICAL RECORDS. [facility] [employer] [facility]. provides no warranty or guarantee of the accuracy or completeness of information in this document."
[2025-02-10 07:25] LABS: Prothrombin Time (Protime)PT. 12.8 SECONDS (11.7-14.9)
[2025-02-10 07:26] LABS: Partial Thromboplast Time 31.8 Seconds (24.1-36.2)
[2025-02-10] MEDS: Nitroglycerin Infusion 250 ML 3 MG CONT INF (07:46)
[2025-02-10 07:57] LABS: Troponin T High Sens 4 HR 85 ng/L (<=14)
--- NOTE | 2025-02-10 08:42 | PCM.CONS.C ---
Assessment & Plan Assessment/Plan (1) Chest pain: PLAN: Patient presents with chest discomfort. The above is suggestive of angina with the EKG changes and the elevated troponin. My recommendation will be as follows: Start intravenous heparin. Start intravenous nitroglycerin. Aspirin. Will schedule the cardiac catheterization within the next 12 hours. Depending on the results further recommendations will be made. There is benefits alternatives of an explained to the patient and her family they understand and agree to proceed. Addendum: Cardiac catheterization demonstrated the following: Normal left main coronary artery. Left anterior descending artery with sequential 60 and 80% stenosis and 70% stenosis of the first prominent diagonal vessel. Left circumflex artery with large first obtuse marginal branch previously stented with in-stent 80% stenosis. Totally occluded proximal right coronary artery with [id number] collaterals. Based on the above angiographic findings we will recommend consideration for coronary artery bypass graft surgery. (2) Presence of stent in coronary artery: PLAN: Does have history of coronary artery stenting of the circumflex artery. We will reevaluate the above with a cardiac catheterization and further recommendations made. (3) Essential hypertension: PLAN: Blood pressure does not appear to be adequately controlled. Would recommend the addition of amlodipine 10 mg a day. (4) Hyperlipidemia: PLAN: Patient does have a history of hyperlipidemia and would recommend high intensity statin. HPI Consult Data Date of Consult: 02/10/25 HPI Narrative HPI Narrative: GAYLE CHO, is a 74 F who presents to the emergency room with a few days duration of chest discomfort described as a heaviness across her chest. She had previously been followed up with the heart group but then after her physician left she also transferred care to the [facility] and now she says that the physician that has left and she presents with the above. She has not had any recent noninvasive testing. In the emergency room she was noted to be hypertensive continue to have chest discomfort with some mild EKG changes. Cardiology was called for further evaluation and management. She does have a history of coronary artery disease, hypertension, diabetes mellitus, tobacco use. She underwent a cardiac catheterization the last in 2011 demonstrating left main coronary artery which was free of disease LAD with less than 50% stenosis, left circumflex with an OM of 95% stenosis for which she underwent angioplasty and stenting of the right coronary artery with no significant disease. In 2012 she had a repeat cardiac catheterization which demonstrated restenosis of the circumflex artery system for which she underwent angioplasty and stenting. Since then she has not had any further stress testing. The last was in 2017 with a stress echocardiogram which demonstrated no significant ischemia. [facility] Medical History Tobacco abuse Fatigue Syncope Fibromyalgia History of IBS Heartburn Shortness of breath on exertion History of pain when walking History of edema Wears dentures Wears glasses Cancer Anxiety Thyroid disease Restless legs Smoker CPAP (continuous positive airway pressure) dependence History of stress test History of echocardiogram Cardiology follow-up encounter Atrial fibrillation Myocardial infarct HLD (hyperlipidemia) Kidney stones CKD (chronic kidney disease) stage 3, GFR 30-59 ml/min Hypothyroidism Essential hypertension Presence of stent in coronary artery (~10/29/12) Atherosclerotic heart disease of [place] coronary artery without angina pectoris Osteoarthritis Heart murmur High cholesterol Arthritis Facet arthropathy, lumbar History of chest pain Home Medications ?Medication ?Instructions ?Recorded ?Last Taken ?Type levothyroxine 100 mcg tablet 100 mcg PO DAILY THYROID 12/28/20 03/05/24 History carvedilol 25 mg tablet 25 mg PO BID bp 08/12/21 03/05/24 History ergocalciferol (vitamin D2) 1,250 1,250 mcg PO Q7D 02/13/24 03/04/24 History mcg (50,000 unit) capsule aspirin 81 mg tablet,delayed 81 mg PO DAILY 02/26/24 02/26/24 History release (Adult Low Dose Aspirin) amlodipine 5 mg tablet 5 mg PO DAILY #30 tabs 03/14/24 Unknown Rx levofloxacin 500 mg tablet 500 mg PO .q48 #4 tabs 03/14/24 Unknown Rx Allergy/AdvReac Type Severity Reaction Status Date / Time Penicillins Allergy Severe Rash Verified 02/10/25 03:37 Anesthetics - Amide Type - Allergy Swelling Verified 02/10/25 03:37 Select A Anesthetics - Nubia Type- Allergy Swelling Verified 02/10/25 03:37 Parabens Iodinated Contrast Media Allergy Anaphylaxis Verified 02/10/25 03:37 Antihistamines - Alkylamine AdvReac Unknown heart Verified 02/10/25 03:37 racing enalapril AdvReac Unknown myalgias Verified 02/10/25 03:37 levothyroxine sodium (From AdvReac Unknown fatigue Verified 02/10/25 03:37 Synthroid) metoprolol (From Lopressor) AdvReac Unknown myalgias Verified 02/10/25 03:37 Family History Mother Heart disease Hypertension HLD (hyperlipidemia) Father Cancer Patient states spider cancer. Surgical History History of ureter stent History of esophagogastroduodenoscopy (EGD) History of cardiac catheterization Hx of eye surgery History of cystoscopy History of tooth extraction History of D&C History of tonsillectomy Presence of coronary angioplasty implant and graft (~10/29/12) Social History household members: spouse Smoking Status: Heavy Smoker (>10/day) how long ago did patient quit smoking: Ongoing tobacco use since teenager, / ppd. alcohol intake: never substance use type: does not use caffeine: Yes Type: carbonated beverages, coffee and tea what type of physical activity do you participate in: none ROS Constitutional Constitutional: Denies fever(s) or weight loss Eyes Eyes: Reports systems reviewed and no addt'l complaints, except as documented ENT HEENT: Reports systems reviewed and no addt'l complaints, except as documented Cardiovascular Cardiovascular: Reports chest pain at rest, chest pain with activity and dyspnea at rest; Denies dyspnea on exertion, edema, palpitations or paroxysmal nocturnal dyspnea Respiratory/Chest Respiratory/Chest: Denies dyspnea on exertion, productive cough, shortness of breath at rest or shortness of breath with exertion Gastrointestinal Gastrointestinal: Denies change in bowel habits, nausea, vomiting or weight changes Genitourinary Genitourinary: Denies difficulty urinating Musculoskeletal Musculoskeletal: Denies joint stiffness or muscle weakness Integumentary Integumentary: Denies lesions Neurologic Neurologic: Denies dizziness or syncope Psychiatric Psychiatric: Denies anxiety Endocrine Endocrinology: Denies excessive sweating or fatigue Hematologic/Lymphatic Hematologic/Lymphatic: Denies anemia Allergic/Immunologic Allergic/Immunologic: Denies seasonal rhinorrhea Physical Exam Const alert, oriented x3 and no apparent distress General Appearance: cooperative HEENT hearing grossly normal bilaterally Head and Scalp: atraumatic Eyes EOMs intact bilaterally Neck General: normal visual inspection Chest inspection of chest normal and palpation of chest normal Resp normal respiratory effort Auscultation: clear to auscultation bilaterally Cardio regular rate, regular rhythm, S1 normal heart sound and S2 normal heart sound Jugular Venous Distention: JVD GI normal to inspection, nondistended, normoactive bowel sounds Extremity normal capillary refill and no pedal edema Peripheral Pulses: Yes pulses 2+ throughout and femoral pulses present Skin no rashes or lesions noted Neuro oriented x3 and CN's II-XII intact bilaterally Psych Appearance: grossly normal and appropriate Objective Data Vital Signs: Vital Signs Temp Pulse Resp BP Pulse Ox O2 Del Method 97.2 F L 60 17 135/87 H 99 Room Air 02/10/25 08:00 02/10/25 08:00 02/10/25 08:00 02/10/25 08:00 02/10/25 08:00 02/10/25 08:00 Oxygen Delivery Method Room Air Weight: 149 lb 7.574 oz Body Mass Index (BMI) 29.2 Intake & Output: Intake and Output for Last 24 Hours 02/08/25 02/09/25 02/10/25 23:59 23:59 23:59 Intake Total 0 / 0 Balance 0 / 0 Lab / Micro Data 02/10/25 03:18 02/10/25 03:18 Labs: Laboratory Results - last 24 hr 02/10/25 03:18: WBC 11.5 H, RBC 4.52, Hgb 13.1, Hct 39.4, MCV 87.2, MCH 29.0, MCHC 33.2, RDW Std Deviation 44.7 H, RDW Coeff of Souleymane 13.9, Plt Count 273, MPV 9.0, Immature Gran % (Auto) 0.400, Neut % (Auto) 73.5 H, Lymph % (Auto) 17.1 L, Powell % (Auto) 6.1, Eos % (Auto) 2.4, Baso % (Auto) 0.5, Absolute Neuts (auto) 8.4 H, Absolute Lymphs (auto) 1.96, Nucleated RBC % 0, PT 12.8, INR 0.9, APTT 31.8, Sodium 137, Potassium 4.2, Chloride 103, Carbon Dioxide 21.0, Anion Gap 13, BUN 32 H, Creatinine 1.84 H, Estim Creat Clear Calc 22.82 L, Est GFR (MDRD) Non-Af 28 L, BUN/Creatinine Ratio 17.4, Glucose 192 H, Calcium 10.0, Magnesium 2.4 H, Troponin T High Sens 10 02/10/25 05:50: Troponin T Hi Sens 2 Hr 53 H 02/10/25 07:27: Troponin T Hi Sens 4Hr 85 H* Cardiology Labs/Tests 02/10/25 03:18: WBC 11.5 H, RBC 4.52, Hgb 13.1, Hct 39.4, MCV 87.2, MCH 29.0, MCHC 33.2, Plt Count 273, MPV 9.0, Immature Gran % (Auto) 0.400, Neut % (Auto) 73.5 H, Lymph % (Auto) 17.1 L, Powell % (Auto) 6.1, Eos % (Auto) 2.4, Baso % (Auto) 0.5, Absolute Neuts (auto) 8.4 H, Nucleated RBC % 0, PT 12.8, INR 0.9, APTT 31.8, Sodium 137, Potassium 4.2, Chloride 103, Carbon Dioxide 21.0, Anion Gap 13, BUN 32 H, Creatinine 1.84 H, Est GFR (MDRD) Non-Af 28 L, BUN/Creatinine Ratio 17.4, Glucose 192 H, Calcium 10.0, Magnesium 2.4 H Rhythm: EKG: ECHO: Stress Test: Cardiac Cath: PCI: CT Surgery: Holter monitor: EPS: PPM: CXR: Chest CT Scan: Radiography Diagnostic Testing: Radiology Impression Chest X-Ray 02/10/25 03:49 IMPRESSION: No acute process is identified in the chest. Reading Location: [facility] Risk Score for UA/STEMI Assesmment (YES = 1) Risk Stratification Applicable: Yes Age > or = 65: Yes > or = 3 CAD risk factors (HTN, Hypercholesterolemia, Diabetes, family hx, current smoker): Yes Known CAD (Stenosis > or = 50%): Yes ASA used in past 7 days: Yes Severe angina (> or = 2 episodes in 24 hrs): Yes EKG ST change > or = 0.5mm: Yes Positive cardiac markers: Yes Score CHELSY Risk Score of mortality/ recurrent ischemic event over the next 14 days: 6-7 = 40.9% - HIGH RISK
[2025-02-10] MEDS: HEPARIN/D5w 25,000 UNITS 25,000 UNITS/250 ML IV.SOLN. 8.1 UNITS CONT INF (09:28)
[2025-02-10] MEDS: Aspirin E.C. 81 MG Tablet PO (09:55)
--- NOTE | 2025-02-10 11:25 | CASEMGMT ---
RN CM Face to Face with patient for initial transition planning/care coordination assessment. RN CM introduced self and role at [facility]. Patient lying in bed, alert and oriented, family at bedside. Patient willing to participate in assessment and is able to answer all questions appropriately. Care providers, pharmacy, and demographics verified. Strata: 2 PCP: Valentín Specialists: Noah Hunt Pharmacy: [facility] Insurance: MCR, [employer] Prescription Benefit: yes Living Will/HPOA: yes, daughter Yandy Mcdaniel LNOK: daughters, son Living Arrangements: Patient lives alone in a mobile home with 3 steps and railing to enter the home. Patient states she is independent at home. Transportation: self, children DME/HHC: Patient has shower chair, grab bars, walker at home. Patient has been to [facility] in the past. Patient has had [facility] in the past. Patient wishes to discharge home, denies need for home health at this time. Patient states she has no further needs or concerns at this time. CM to follow for discharge planning needs that may arise. Disposition Plan: Patient to discharge home with family support and follow-up plans in place. Celeste CARO, RN, CM
--- NOTE | 2025-02-10 15:52 | PN.HOSP_ITS ---
Hospitalist Note Notified by Dr. Correa that patient has triple-vessel disease and would require transfer for evaluation for CABG. He was going to reach out to [facility]. I went and informed the patient and her family. They do not want to go to [facility] but would rather go to [facility]. Their preference is for the [facility]. I did advise them that it is possible that her transfer to the [facility] may be potentially days. They still would prefer [facility]. I then spoke with the transfer intake person and then to speak with the territory sales consultant, Dr. Hawley, who has accepted the patient.
--- NOTE | 2025-02-10 15:52 | PCM.HOSP.N ---
Hospitalist Note Notified by Dr. Correa that patient has triple-vessel disease and would require transfer for evaluation for CABG. He was going to reach out to [facility]. I went and informed the patient and her family. They do not want to go to [facility] but would rather go to [facility]. Their preference is for the [facility]. I did advise them that it is possible that her transfer to the [facility] may be potentially days. They still would prefer [facility]. I then spoke with the transfer intake person and then to speak with the plating operator, Dr. Hawley, who has accepted the patient.
--- NOTE | 2025-02-10 16:31 | CHAPLAIN ---
Type of Pastoral Visit _x__ Initial Visit ___ Follow-up Visit ___ On-call Visit ___ General Patient Visit ___ Spiritual Assessment ___ Family Conference ___ Bereavement ___ Rapid Response ___ Code Blue ___ Other (describe below) Pastoral Care Referral From _x__ Patient _x__ Family ___ Nurse ___ Physician ___ Hotel Services Supervisor ___ Dispensary Attendant ___ Other (describe below) Sacrament/Intervention _x__ Active listening ___ Anointing ___ Zoroastrian ___ Bereavement ___ Communion ___ [place] exploration ___ ___ Life review _x__ Prayer ___ Reconciliation ___ Sacrament of Sick _x__ Supportive presence ___ Wedding ___ Other (describe below) Pastoral Comments patient is awake but resting in bed; three of her four children are currently with pt in the room and are offering support; one other daughter just left so family exhibits good efforts; pt says that she is really tired but they want to send me to another hospital; pt explains more of what that means and talks about some apprehension with it all; pt is agreeable to decisions of the medical team however; pt says that she would welcome a prayer but that is what is best for her right now; offered support to family as well
[2025-02-10 17:19] LABS: Partial Thromboplast Time 40.3 Seconds (24.1-36.2)
--- NOTE | 2025-02-10 18:00 | PCM.DC.SUM ---
Providers Date of Admission: 02/10/25 Primary Care Physician: Dr. Gema Laura MD Consultations 02/10/25 08:49 Consult: Cardiology Routine Consulting Provider: Philip Correa Reason for Consult: nstemi EMERGENT Consult: Yes MD Notified: Yes Date Notified: 02/10/25 Time Notified: 06:58 Method of Notification: Verbal Reason For Visit: CHEST PAIN, ELEVATED TROPONIN Diagnosis Discharge Diagnosis (1) Chest pain: Status: Acute Code(s): R07.9 - Chest pain, unspecified (2) Presence of stent in coronary artery: Status: Acute Code(s): Z95.5 - Presence of coronary angioplasty implant and graft (3) Essential hypertension: Status: Acute Code(s): I10 - Essential (primary) hypertension (4) Hyperlipidemia: Status: Acute Code(s): E78.5 - Hyperlipidemia, unspecified Medications at Discharge Home Medications levothyroxine 100 mcg tablet 100 mcg PO DAILY THYROID 12/28/20 carvedilol 25 mg tablet 25 mg PO BID bp 08/12/21 ergocalciferol (vitamin D2) 1,250 mcg (50,000 unit) capsule 1,250 mcg PO Q7D 02/13/24 aspirin 81 mg tablet,delayed release (Adult Low Dose Aspirin) 81 mg PO DAILY 02/26/24 amlodipine 5 mg tablet 5 mg PO DAILY #30 tabs 03/14/24 levofloxacin 500 mg tablet 500 mg PO .q48 #4 tabs 03/14/24 Hospital Course Operations None Procedures Cardiac catheterization Summary of Care Provided Hospital Course: Patient presents with chest pain. Patient was found to have three-vessel disease on cardiac catheterization. Cardiology recommend transfer for evaluation revascularization. Family requested [facility]. Spoke with the road monkey, Dr. Hawley,, who accepted the patient. Patient was transferred there in stable condition. Weight / BMI Weight Weight: 67.8 kg Body Mass Index (BMI) 29.2 ABG / Lab / Microbiology Data 02/10/25 03:18 02/10/25 03:18 Laboratory: Laboratory Results - last 24 hr 02/10/25 15:55: APTT 40.3 H D/C Instructions DC O2, CPAP, BIPAP Needs Home O2 Discharge instructions: No Meaningful Use Info Meaningful Use Meaningful Use Diagnoses (Choose all that apply): AMI AMI/Post PCI/Angioplasty Aspirin given w/in 24hrs of arrival?: Yes ASA at discharge?: Yes Antiplatelet Therapy at Discharge:: No Reason Antiplatelet Therapy not ordered:: Evaluation for revascularization Statins at discharge?: Yes Alon/ARB at discharge?: No Reason Alon/ARB not ordered:: Worsening renal dysfunctn Beta Delmi at discharge?: Yes Done w/ Acute DC measure.: Yes Documented LVEF (%): 60 Discharge Plan Admission Admit Date/Time: 02/10/25 06:49 Primary Reason for Your Visit: Myocardial infarction Attending Provider: Brandan Logan Primary Care Provider: Gema Laura Consulting Providers: Usama Vang; Philip Correa Discharge Orders/Prescriptions Prescriptions: No Action levothyroxine 100 mcg tablet 100 mcg PO DAILY carvedilol 25 mg tablet 25 mg PO BID ergocalciferol (vitamin D2) 1,250 mcg (50,000 unit) capsule 1,250 mcg PO Q7D Patient Comments: pt reports taking inconsistently aspirin [Adult Low Dose Aspirin] 81 mg tablet,delayed release (DR/EC) 81 mg PO DAILY amlodipine 5 mg Tablet 5 mg PO DAILY Qty: 30 0RF levofloxacin 500 mg tablet 500 mg PO .q48 Qty: 4 0RF Referrals / Follow Up: Gema Laura MD [Primary Care Provider, Internal Medicine] Disposition Disposition (needs filled in before D/C Order can be placed): Acute Care Hospital Charges/Coding Visit Charges Inpatient E&M: 32600 Disch Hosp
[2025-02-10] MEDS: Nitroglycerin Oint 1 INCH PACKET TD (18:15)
--- NOTE | 2025-02-10 20:41 | CL.D_ITS ---
Patient Name: GAYLE CHO Study Date: 02/10/2025 Performing: Philip Correa MD Ht: 60 inches 152.4 cm : 1950 Wt: 149.7 lbs 67.8 kg Age: 74 Gender: female BSA: 1.65 PROCEDURE(S) PERFORMED [id number]-([id number])[facility] CLINICAL PROFILE AND INDICATIONS Indications: Suspected CAD Heart Failure: None Stress/Imaging Stress/Image Study Performed: No CAD Presentations: Unstable angina. CONCLUSIONS Severe triple-vessel disease RECOMMENDATIONS Surgery consult for coronary revascularization DESCRIPTION OF PROCEDURE The patient arrived to the procedure lab. The risks and benefits of the procedure as well as a full description of our services here and current unavailability of surgical backup were fully explained to the patient and/or their significant other prior to the catheterization. The Timeout was completed, verifying the correct patient and procedure. The patient's procedural site was prepped and draped in the usual fashion. Local anesthetic was given subcutaneously to right radial region with Lidocaine 2%. Using a modified Seldinger technique, arterial access was obtained via the right radial artery, a 6Fr sheath was inserted. Left Coronary Artery selective angiography was performed in multiple views using a 5 Fr. 4.0 Bryan catheter. Right Coronary Artery selective angiography was then performed in multiple views using a 5 Fr. 4.0 Bryan catheter.The arterial sheath was pulled and a TR Band was applied for hemostasis 15 ml of air CORONARY ANGIOGRAPHY DOMINANCE: Right Dominant LEFT HEART ASSESSMENT Left Ventricular Ejection Fraction: Not assessed LEFT MAIN: Angiographically normal LEFT ANTERIOR DESCENDING ARTERY: 60% proximal and 80% long mid stenosis and mild distal disease DIAGONAL 1: Proximal - 80% long % Stenosis CIRCUMFLEX ARTERY: Previously stented obtuse marginal branch with 80% in-stent stenosis. AV groove branch has mild disease. RIGHT CORONARY ARTERY: PROX RCA: is occluded COLLATERAL FLOW: Collateral flow from Left to Right COMPLICATIONS No Complications PROCEDURE MEDICATIONS Versed 1 mg IV Oxygen: 2 L/min via nasal cannula Benadryl 50 mg IV @ 02/10/2025 13:15:20 Heparin given IA 02/10/2025 13:17:00 Solu-medrol 125 mg IV 02/10/2025 13:01:35 SUMMARY OF HEMODYNAMIC DATA Time AIR REST ECG 12:59:02 AO 162/73 (109) SA 13:18:54 Signed By Philip Correa MD On 02/10/2025 20:40:16 Signed By Philip Correa MD On 02/10/2025 20:40:01 Philip Correa MD
== END 2025-02-10 18:57 | disposition short-term general hospital (02) | DRG 287 ==
LOC: ED 06:42 → PCU 07:06
PROVIDERS: Internal Medicine Cardiovascular Disease; Admitting Provider Family Medicine; Emergency Provider Emergency Medicine; PCP Internal Medicine
DX: I25.110 Atherosclerotic heart disease of native coronary artery with unstable angina pectoris (principal); T82.855A Stenosis of coronary artery stent, initial encounter; E11.22 Type 2 diabetes mellitus with diabetic chronic kidney disease; N18.30 Chronic kidney disease, stage 3 unspecified; E03.9 Hypothyroidism, unspecified; I12.9 Hypertensive chronic kidney disease with stage 1 through stage 4 chronic kidney disease, or unspecified chronic kidney disease; E66.9 Obesity, unspecified; I48.91 Unspecified atrial fibrillation; E78.5 Hyperlipidemia, unspecified; I25.2 Old myocardial infarction; F17.200 Nicotine dependence, unspecified, uncomplicated; Z95.5 Presence of coronary angioplasty implant and graft; Z79.82 Long term (current) use of aspirin; Z79.890 Hormone replacement therapy; Z79.899 Other long term (current) drug therapy; Z68.29 Body mass index [BMI] 29.0-29.9, adult
CPT/HCPCS: 36415; 71045; 80048; 83735; 84484; 85025; 85610; 85730; 93005; 93454; 99152; 99153; 99284; Q9967; A4216; C1769; C1894